=== PATIENT | female | born 1950 | race Caucasian/White ===

== ENCOUNTER → 2016-02-15 | Outpatient (CLI) | payer MEDICAID ==
[~2016-02-15] MED LIST: BUSP15TA60 PO; BUSP5POW MC; CLON0.5T PO; CLON0.5T3 PO; DESI10TA3 PO; FLUT1DIS26 INH; FLUT1DIS28 IH; GABA600T2 PO; HYDROXYZINE HCL 25 MG PO; LAMO100T PO; LAMO25TA75 PO; LEVO0.5P2 MC; LEVO50TA6 PO; LEVO88TA54 PO; LISI-592 PO; LISI1POW MC; OLAN2.5T3 PO; OLAN20TA16 PO; OMEP40CA36 PO; POLY17PO6 PO; POLY255P PO; PREMARIN 0.9 MG PO; RT-ALBUINH INH; TRAM50TA2 PO; ZOLP10TA PO; ZOLP10TA5 PO; [UNRECOGNIZED DRUG - CODE] IJ; [UNRECOGNIZED DRUG - CODE] PO
--- OUTSIDE RECORDS SUMMARY | 2016-02-15 09:54 | XMS REPORT | Continuity of Care Document ---
Author Author [facility] Organization [facility] Address Unknown Phone Unavailable Care Team Providers Care Value Analysis Coordinator Name Role Phone TovainnaDevora PCP [phone] Source Comments Some departments are not documenting in the electronic medical record. If you do not see the information that you expected, contact Release of Information in the Health Information Management department at [phone] for further assistance in locating additional records.[facility] Active Allergies and Adverse Reactions Allergen [...] Recent Encounters Date Type Specialty Providers Description 02/09/2016 Orders Only Allergy,Immunology and Gierer, Carol, DO Gammopathy Rheumatology 02/02/2016 Telephone Oncology Lien Sandoval, internal communications intern 01/31/2016 Orders Only Allergy,Immunology and Gierer, Carol, DO Gammopathy (Primary Dx) Rheumatology 01/26/2016 Telephone Allergy,Immunology and Gierer, Carol, DO Labs Only Rheumatology 01/26/2016 Orders Only Allergy,Immunology and Gierer, Carol, DO Angioedema, initial Rheumatology encounter 01/25/2016 Telephone Pediatric Allergy Carol Hensley, DO Results 01/18/2016 Orders Only Allergy,Immunology and Gierer, Carol, DO Angioedema, initial Rheumatology encounter 01/17/2016 Telephone Allergy,Immunology and Gierer, Carol, DO Other - results Rheumatology 12/29/2015 Office Visit Allergy,Immunology and Gierer, Carol, DO Angioedema, initial Rheumatology encounter (Primary Dx); Purpura (HCC); Chronic pruritus Social History Tobacco Use Types Packs/Day Years Used Date Never Smoker Smokeless Tobacco: Never Used Alcohol Use Drinks/Week oz/Week Comments No Last Filed Vital Signs Vital Sign Reading Time Taken Blood Pressure 138/78 12/29/2015 12:01 PM HEAT TREATING BLUER Pulse 71 12/29/2015 12:01 PM HEAT TREATING BLUER Temperature 36.7 C (98.1 F) 12/29/2015 12:01 PM HEAT TREATING BLUER Respiratory Rate 18 12/29/2015 12:01 PM HEAT TREATING BLUER Height 1.6 m (5' 3") 12/29/2015 12:01 PM HEAT TREATING BLUER Weight 79.833 kg (176 lb) 12/29/2015 12:01 PM HEAT TREATING BLUER Body Mass Index 31.18 12/29/2015 12:01 PM HEAT TREATING BLUER Oxygen Saturation - - Plan of Care Health Maintenance Due Date Last Done Comments Hepatitis C Screening 1950 Physical (Comprehensive) 11/25/1959 Exam Pertussis Vaccine 11/25/1963 Tetanus Vaccine 1969 Cervical Cancer Screening 1973 Breast Cancer Screening 1992 Colorectal Cancer 2002 Screening Shingles Vaccine 2012 Influenza Vaccine 10/14/2015 Results from Last 3 Months IMMUNOGLOBULINS-IGA,IGG,IGM (02/08/2016) Specimen Blood MISCELLANEOUS LAB TEST (01/04/2016) Specimen Blood ANTI-NUCLEAR ANTIBODY(ALTHEA) (12/31/2015) Specimen Blood THYROGLOBULIN AB (12/31/2015) Specimen Blood ELECTROPHORESIS-SERUM PROTEIN (12/31/2015) Specimen Blood C REACTIVE PROTEIN (CRP) (12/31/2015) Specimen Blood TSH WITH FREE T4 REFLEX (12/31/2015) Specimen Blood SED RATE (12/31/2015) Specimen Blood
--- NOTE | 2016-02-15 12:01 | Diagnostic Imaging Report ---
BONE SURVEY COMPLETE COMPARISON: None available. INDICATION: Biclonal gammopathy, facial swelling. TECHNIQUE: A total of 21 radiographic images of the skull, axial and appendicular skeleton were obtained. FINDINGS: Skull: No focal lytic lesion. Spine: No pathologic compression fracture within the cervical, thoracic or lumbar spine. There is dextroscoliosis of the lumbar spine with apex at T11 vertebral body. There is compensatory rotatory levoscoliosis of the lumbar spine. Chest: No expansile lytic lesion within the ribs or clavicles. Pelvis: No expansile lytic lesion. Numerous mineralized foci scattered throughout the abdomen or pelvis are indeterminate in nature. Scattered pelvic phleboliths. Lower extremities: No focal osseous lytic lesions. No periosteal reaction. Degenerative changes of both knees. Heterotopic ossification along the medial right femoral condyle is compatible with old MCL injury. Remote injury of the left lateral malleolus with chronic ossific body at its distal tip. Upper extremity: No focal osseous lesions. Degenerative changes at the thumb CMC articulation on the right. IMPRESSION: No focal lytic osseous lesion to suggest focal myelomatous lesion. Dictated by: Dictated on workstation # [id number]
== END ==
LOC: RAD 09:49
PROVIDERS: ATTEND Internal Medicine Hematology & Oncology
DX: D47.2 Monoclonal gammopathy (principal)
CPT/HCPCS: 77075

== ENCOUNTER 2016-03-30 09:03 | Outpatient (RCR) | payer MEDICAID ==
--- OUTSIDE RECORDS SUMMARY | 2016-02-09 12:30 | XMS REPORT | Continuity of Care Document ---
Author Author [facility] Organization [facility] Address Unknown Phone Unavailable Care Team Providers Care Spanish Literature Professor Name Role Phone HarshDevora PCP [phone] Source Comments Some departments are not documenting in the electronic medical record. If you do not see the information that you expected, contact Release of Information in the Health Information Management department at [phone] for further assistance in locating additional records.[facility] Active Allergies and Adverse Reactions Allergen Noted Date Severity Reactions Comments Lyrica 12/29/2015 Low ITCHING Zolpidem 11/30/2006 Allergy recorded in SMS: MOE~Reactions: MENTAL STATUS Current Medications Prescription Sig. Disp. Refills Start End Date Status Date albuterol (PROAIR HFA) 90 Inhale 2 Puffs by mouth Active mcg/actuation inhaler into the lungs every 6 hours as needed for Wheezing or Shortness of Breath. Shake well before use. budesonide/formoterol Inhale 2 Puffs by mouth Active (SYMBICORT HFA) 80-4.5 into the lungs twice mcg/actuation inhalation daily. clonazePAM (KLONOPIN) 0.5 Take 0.5 mg by mouth Active mg tablet twice daily. OLANZapine (ZYPREXA Dissolve 20 mg by mouth Active ZYDIS) 20 mg rapid at bedtime daily. dissolve tablet lamoTRIgine (LAMICTAL) Take 100 mg by mouth Active 100 mg tablet daily. cetirizine (ZYRTEC) 10 mg Take 10 mg by mouth every Active tablet morning. olopatadine(+) (PATANOL) Place 1 Drop into or Active 0.1 % ophthalmic solution around eye(s) twice daily as needed for Allergy symptoms. montelukast (SINGULAIR) Take 10 mg by mouth at Active 10 mg tablet bedtime daily. fluticasone (FLONASE) 50 Apply to each nostril as Active mcg/actuation nasal spray directed daily. Shake bottle gently before using. traMADol (ULTRAM) 50 mg Take 50 mg by mouth every Active tablet 6 hours as needed for Pain. gabapentin (NEURONTIN) Take 300 mg by mouth Active 300 mg capsule twice daily. ibuprofen (MOTRIN) 800 mg Take 800 mg by mouth Active tablet every 6 hours as needed for Pain. Take with food. gabapentin (NEURONTIN) Take 800 mg by mouth Active 800 mg tablet daily. polyethylene glycol 3350 Take 17 g by mouth daily. Active (MIRALAX) 17 g packet levothyroxine (SYNTHROID) Take 50 mcg by mouth Active 50 mcg tablet daily 30 minutes before breakfast. omeprazole DR(+) Take 40 mg by mouth daily Active (PRILOSEC) 40 mg capsule before breakfast. zolpidem (AMBIEN) 10 mg Take 10 mg by mouth at Active tablet bedtime as needed for Sleep. lisinopril-hydrochlorothi Take 1 Tab by mouth every Active azide (PRINZIDE, morning. ZESTORETIC) 20-12.5 mg tablet isosorbide mononitrate SR Take 30 mg by mouth every Active (IMDUR) 30 mg tablet morning. dicyclomine (BENTYL) 10 Take 10 mg by mouth four Active mg capsule times daily. hydrOXYzine pamoate Take 25 mg by mouth three Active (VISTARIL) 25 mg capsule times daily as needed for Itching. Active Problems Problem Noted Date Angioedema 01/01/2016 Overview: 1-2 times per month since approximately 2013. Each episode lasts 1-2 days. She has an EpiPen but has never had to use it. No identifiable trigger, denies tick bites, denies associated rash, but is taking an JUSTINE-Inhibitor. She may have some shortness of breath with episodes but states she has this all the time. She takes hydroxyzine three times a day for chronic pruritis without rash and still has breakthrough symptoms. - May be idiopathic angioedema but since she has been on lisinopril for years, would stop the lisinopril as this could cause her symptoms. I advised her to call her doctor about this before stopping this to receive a substitute for HTN management. Purpura (HCC) 01/01/2016 Overview: Small amount on her left arm, appears to be in an area of trauma. Chronic pruritus 01/01/2016 Overview: No associated rash or other systemic symptoms. - Continue hydroxyzine, which she feels controls her symptoms. Most Recent Encounters Date Type Specialty Providers Description 02/02/2016 Telephone Oncology Lien Sandoval, coal conveyor operator 01/31/2016 Orders Only Allergy,Immunology and Gierer Carol, DO Gammopathy (Primary Dx) Rheumatology 01/26/2016 Telephone Allergy,Immunology and Gierer Carol, DO Labs Only Rheumatology 01/26/2016 Orders Only Allergy,Immunology and Gierer Carol, DO Angioedema, initial Rheumatology encounter 01/25/2016 Telephone Pediatric Allergy Carol Hensley, DO Results 01/18/2016 Orders Only Allergy,Immunology and Gierer Carol, DO Angioedema, initial Rheumatology encounter 01/17/2016 Telephone Allergy,Immunology and Gierer Carol, DO Other - results Rheumatology 12/29/2015 Office Visit Allergy,Immunology and Gierer Carol, DO Angioedema, initial Rheumatology encounter (Primary Dx); Purpura (HCC); Chronic pruritus Social History Tobacco Use Types Packs/Day Years Used Date Never Smoker Smokeless Tobacco: Never Used Alcohol Use Drinks/Week oz/Week Comments No Last Filed Vital Signs Vital Sign Reading Time Taken Blood Pressure 138/78 12/29/2015 12:01 PM PROTOHISTORIAN Pulse 71 12/29/2015 12:01 PM PROTOHISTORIAN Temperature 36.7 C (98.1 F) 12/29/2015 12:01 PM PROTOHISTORIAN Respiratory Rate 18 12/29/2015 12:01 PM PROTOHISTORIAN Height 1.6 m (5' 3") 12/29/2015 12:01 PM PROTOHISTORIAN Weight 79.833 kg (176 lb) 12/29/2015 12:01 PM PROTOHISTORIAN Body Mass Index 31.18 12/29/2015 12:01 PM PROTOHISTORIAN Oxygen Saturation - - Plan of Care Health Maintenance Due Date Last Done Comments Hepatitis C Screening 1950 Physical (Comprehensive) 11/25/1959 Exam Pertussis Vaccine 11/25/1963 Tetanus Vaccine 1969 Cervical Cancer Screening 1973 Breast Cancer Screening 1992 Colorectal Cancer 2002 Screening Shingles Vaccine 2012 Influenza Vaccine 10/14/2015 Results from Last 3 Months MISCELLANEOUS LAB TEST (01/04/2016) Specimen Blood ANTI-NUCLEAR ANTIBODY(ALTHEA) (12/31/2015) Specimen Blood THYROGLOBULIN AB (12/31/2015) Specimen Blood ELECTROPHORESIS-SERUM PROTEIN (12/31/2015) Specimen Blood C REACTIVE PROTEIN (CRP) (12/31/2015) Specimen Blood TSH WITH FREE T4 REFLEX (12/31/2015) Specimen Blood SED RATE (12/31/2015) Specimen Blood
[2016-02-10 05:00] LABS: LIGHT CHAIN KAPPA SERUM QUANT 266.65 mg/L (3.30-19.40); LIGHT CHAIN LAMBDA SERUM QUANT 28.73 mg/L (5.71-26.30)
[2016-03-15 12:15] LABS: BASOPHILS # (AUTO) 0.1 10^3/uL (0.0-0.1); BASOPHILS % (AUTO) 1 % (0-10); EOSINOPHILS # (AUTO) 0.1 10^3/uL (0.0-0.3); EOSINOPHILS % (AUTO) 2 % (0-10); LYMPHOCYTES # (AUTO) 2.4 X 10^3 (1.0-4.0); LYMPHOCYTES % (AUTO) 33 % (12-44); MEAN CORPUSCULAR HEMOGLOBIN 31 PG (25-34); MEAN CORPUSCULAR HGB CONC 33 G/DL (32-36); MEAN CORPUSCULAR VOLUME 93 FL (80-99); MONOCYTES # (AUTO) 0.5 X 10^3 (0.0-1.0); MONOCYTES % (AUTO) 7 % (0-12); NEUTROPHILS # (AUTO) 4.3 X 10^3 (1.8-7.8); NEUTROPHILS % (AUTO) 58 % (42-75); PLATELET COUNT 238 10^3/uL (130-400); RED BLOOD COUNT 3.83 10^6/uL (4.35-5.85); RED CELL DISTRIBUTION WIDTH 12.6 % (10.0-14.5); WHITE BLOOD COUNT 7.4 10^3/uL (4.3-11.0)
[2016-03-15 12:44] LABS: EOSINOPHILS % (MANUAL) 2 %; LYMPHOCYTES % (MANUAL) 27 %; NEUTROPHILS % (MANUAL) 51 %
[2016-03-15 12:45] LABS: BILIRUBIN,TOTAL 0.3 MG/DL (0.1-1.0); CALCIUM 9.1 MG/DL (8.5-10.1); CREATININE SERUM 1.15 MG/DL (0.60-1.30); POTASSIUM 4.2 MMOL/L (3.6-5.0); REACTIVE LYMPHOCYTES 10 %; STOMATOCYTES MODERATE; TOTAL PROTEIN 7.4 G/DL (6.4-8.2)
== END 2016-05-09 | disposition home or self-care (01) ==
LOC: ONC 09:03
PROVIDERS: ATTEND Internal Medicine Hematology & Oncology
DX: D47.2 Monoclonal gammopathy (principal); I10 Essential (primary) hypertension; Z79.899 Other long term (current) drug therapy
CPT/HCPCS: 36415; 38221; 80053; 82232; 82784; 83615; 83883; 85007; 85027; 85045; 86335; 88184; 88185; 88305; 88311; 88313; 99213; 99214

== ENCOUNTER 2016-07-21 11:24 | Outpatient (RCR) | payer MEDICAID ==
[2016-07-13 10:36] LABS: BASOPHILS % (AUTO) 0 % (0-10); EOSINOPHILS % (AUTO) 1 % (0-10); LYMPHOCYTES # (AUTO) 2.3 X 10^3 (1.0-4.0); LYMPHOCYTES % (AUTO) 37 % (12-44); MEAN CORPUSCULAR HEMOGLOBIN 32 PG (25-34); MEAN CORPUSCULAR HGB CONC 34 G/DL (32-36); MEAN CORPUSCULAR VOLUME 93 FL (80-99); MEAN PLATELET VOLUME 9.6 FL (7.4-10.4); MONOCYTES # (AUTO) 0.5 X 10^3 (0.0-1.0); MONOCYTES % (AUTO) 8 % (0-12); NEUTROPHILS # (AUTO) 3.3 X 10^3 (1.8-7.8); NEUTROPHILS % (AUTO) 54 % (42-75); PLATELET COUNT 260 10^3/uL (130-400); RED BLOOD COUNT 3.67 10^6/uL (4.35-5.85); RED CELL DISTRIBUTION WIDTH 12.8 % (10.0-14.5); WHITE BLOOD COUNT 6.1 10^3/uL (4.3-11.0)
[2016-07-13 10:50] LABS: PEP REPORT SEE PATH REPORT
[2016-07-13 11:10] LABS: ALBUMIN 3.7 G/DL (3.2-4.5); BILIRUBIN,TOTAL 0.2 MG/DL (0.1-1.0); CALCIUM 9.2 MG/DL (8.5-10.1); CREATININE SERUM 1.15 MG/DL (0.60-1.30); TOTAL PROTEIN 7.1 G/DL (6.4-8.2)
[2016-07-14 03:49] LABS: IMMUNOGLOBULIN IGA 171 mg/dL (71-263); IMMUNOGLOBULIN IGG 1415 mg/dL (672-1680); LIGHT CHAIN KAPPA SERUM QUANT 229.51 mg/L (3.30-19.40); LIGHT CHAIN LAMBDA SERUM QUANT 19.47 mg/L (5.71-26.30)
[2016-07-14 07:15] LABS: IMMUNOGLOBULIN IGM 50 mg/dL (47-209)
[2016-07-17 10:14] LABS: CLIN PATHOLOGY REPORT FOOTNOTE
[2016-07-17 10:15] LABS: SERUM PROTEIN ELEC DETAIL L-17-0007131
== END 2016-10-11 | disposition home or self-care (01) ==
LOC: ONC 11:24
PROVIDERS: ATTEND Internal Medicine Hematology & Oncology
DX: D47.2 Monoclonal gammopathy (principal); M54.6 Pain in thoracic spine; K13.0 Diseases of lips; Z79.899 Other long term (current) drug therapy
CPT/HCPCS: 36415; 80053; 82232; 82784; 83883; 84155; 84156; 84165; 85025; 86335; 99213

== ENCOUNTER → 2016-07-27 | Outpatient (CLI) | payer MEDICAID ==
--- NOTE | 2016-07-27 17:43 | Diagnostic Imaging Report ---
EXAMINATION: DEXA scan. INDICATION: Asymptomatic menopausal state. Z78.0. TECHNIQUE: Bone mineral density estimated based on dual energy radiography over the lumbar spine and femoral necks, was performed. FINDINGS: The lumbar spine T-score is -0.4. T score over the left femoral neck is 0.3 and on the right is 0. IMPRESSION: Normal bone mineral density. Dictated by: Dictated on workstation # [id number]
== END ==
LOC: RAD 10:09
PROVIDERS: ATTEND Internal Medicine Hematology & Oncology
DX: D47.2 Monoclonal gammopathy (principal); M54.9 Dorsalgia, unspecified; Z78.0 Asymptomatic menopausal state
CPT/HCPCS: 77080

== ENCOUNTER 2017-01-23 13:46 | Outpatient (RCR) | payer MEDICAID ==
[2017-01-18 09:10] LABS: BASOPHILS # (AUTO) 0.1 10^3/uL (0.0-0.1); BASOPHILS % (AUTO) 1 % (0-10); EOSINOPHILS # (AUTO) 0.1 10^3/uL (0.0-0.3); EOSINOPHILS % (AUTO) 3 % (0-10); HEMATOCRIT 35 % (35-52); HEMOGLOBIN 11.9 G/DL (11.5-16.0); LYMPHOCYTES # (AUTO) 2.1 X 10^3 (1.0-4.0); LYMPHOCYTES % (AUTO) 47 % (12-44); MEAN CORPUSCULAR HEMOGLOBIN 32 PG (25-34); MEAN CORPUSCULAR HGB CONC 34 G/DL (32-36); MEAN CORPUSCULAR VOLUME 94 FL (80-99); MEAN PLATELET VOLUME 10.6 FL (7.4-10.4); MONOCYTES # (AUTO) 0.3 X 10^3 (0.0-1.0); MONOCYTES % (AUTO) 6 % (0-12); NEUTROPHILS # (AUTO) 1.9 X 10^3 (1.8-7.8); NEUTROPHILS % (AUTO) 43 % (42-75); PLATELET COUNT 232 10^3/uL (130-400); RED BLOOD COUNT 3.77 10^6/uL (4.35-5.85); RED CELL DISTRIBUTION WIDTH 12.1 % (10.0-14.5); WHITE BLOOD COUNT 4.5 10^3/uL (4.3-11.0)
[2017-01-18 09:30] LABS: ALBUMIN 3.9 GM/DL (3.2-4.5); BILIRUBIN,TOTAL 0.7 MG/DL (0.1-1.0); CALCIUM 9.6 MG/DL (8.5-10.1); CREATININE SERUM 1.04 MG/DL (0.60-1.30); POTASSIUM 3.7 MMOL/L (3.6-5.0); TOTAL PROTEIN 7.6 GM/DL (6.4-8.2)
[2017-01-18 09:43] LABS: PROTEIN URINE MG/DL < 6 MG/DL (6-12)
[2017-01-18 09:56] LABS: TOTAL VOLUME,URINE 875 ML
== END 2017-04-18 | disposition home or self-care (01) ==
LOC: ONC 13:46
PROVIDERS: ATTEND Internal Medicine Hematology & Oncology
DX: D47.2 Monoclonal gammopathy (principal); I10 Essential (primary) hypertension; M54.9 Dorsalgia, unspecified; Z78.0 Asymptomatic menopausal state; Z79.899 Other long term (current) drug therapy
CPT/HCPCS: 36415; 80053; 82784; 83883; 84155; 84156; 84165; 85025; 86335; 99213

== ENCOUNTER 2017-07-24 13:42 | Outpatient (RCR) | payer MEDICAID ==
[2017-07-19 14:40] LABS: BASOPHILS # (AUTO) 0.1 10^3/uL (0.0-0.1); BASOPHILS % (AUTO) 1 % (0-10); EOSINOPHILS # (AUTO) 0.1 10^3/uL (0.0-0.3); EOSINOPHILS % (AUTO) 2 % (0-10); HEMATOCRIT 33 % (35-52); HEMOGLOBIN 11.4 G/DL (11.5-16.0); LYMPHOCYTES # (AUTO) 2.1 X 10^3 (1.0-4.0); LYMPHOCYTES % (AUTO) 34 % (12-44); MEAN CORPUSCULAR HEMOGLOBIN 32 PG (25-34); MEAN CORPUSCULAR HGB CONC 34 G/DL (32-36); MEAN CORPUSCULAR VOLUME 92 FL (80-99); MEAN PLATELET VOLUME 9.2 FL (7.4-10.4); MONOCYTES # (AUTO) 0.5 X 10^3 (0.0-1.0); MONOCYTES % (AUTO) 7 % (0-12); NEUTROPHILS # (AUTO) 3.6 X 10^3 (1.8-7.8); NEUTROPHILS % (AUTO) 57 % (42-75); PLATELET COUNT 252 10^3/uL (130-400); RED BLOOD COUNT 3.61 10^6/uL (4.35-5.85); RED CELL DISTRIBUTION WIDTH 12.5 % (10.0-14.5); WHITE BLOOD COUNT 6.3 10^3/uL (4.3-11.0)
[2017-07-19 14:56] LABS: ALBUMIN 3.9 GM/DL (3.2-4.5); BILIRUBIN,TOTAL 0.2 MG/DL (0.1-1.0); CALCIUM 9.1 MG/DL (8.5-10.1); POTASSIUM 3.8 MMOL/L (3.6-5.0); TOTAL PROTEIN 7.6 GM/DL (6.4-8.2)
[~2017-07-24 13:42] MED LIST changes: +CLON0.5T13 PO; -CLON0.5T3 PO
[2017-08-28] MEDS ORDERED: ESTR0.9T PO (08:44)
[2017-08-28] MEDS ORDERED: FLUT16SP22 NS (08:44)
[2017-08-28] MEDS ORDERED: CETI10TA17 PO (08:44)
[2017-08-28] MEDS ORDERED: GABA-488 PO (08:44)
[2017-08-28] MEDS ORDERED: RT-ALBUINH INH (08:44)
[2017-08-28] MEDS ORDERED: LEVO50TA6 PO (08:44)
[2017-08-28] MEDS ORDERED: PANT40TA3 PO (08:44)
[2017-08-28] MEDS ORDERED: BUDE10.22 INH (08:44)
[2017-08-28] MEDS ORDERED: GABA800T2 PO (08:44)
[2017-08-28] MEDS ORDERED: HYDR-700 PO (08:44)
[2017-08-28] MEDS ORDERED: OXYB5TAB9 PO ×2 (08:44→10:05)
[2017-08-28] MEDS ORDERED: IBUP-1780 PO (08:44)
[2017-08-28] MEDS ORDERED: MONT10TA24 PO (08:44)
[2017-08-28] MEDS ORDERED: ISM60TCR PO (08:44)
[2017-08-28] MEDS ORDERED: BACL10TA PO (08:44)
[2017-08-28] MEDS ORDERED: HYDR25TA4 PO (08:44)
[2017-08-28] MEDS ORDERED: OLOP5DRO13 OU (10:05)
[2017-08-28] MEDS ORDERED: MAGN400O7 PO (10:05)
[2017-08-28] MEDS ORDERED: OMEP40CA36 PO (10:05)
[2017-08-28] MEDS ORDERED: TRAM50TA2 PO (10:05)
[2017-08-28] MEDS ORDERED: ZOLP10TA5 PO (10:05)
[2017-08-29] MEDS ORDERED: IBUP-1780 PO (10:51)
[2017-08-29] MEDS ORDERED: NITR100C PO (10:52)
== END 2017-10-17 | disposition home or self-care (01) ==
LOC: ONC 13:42
PROVIDERS: ATTEND Internal Medicine Hematology & Oncology
DX: D47.2 Monoclonal gammopathy (principal); I10 Essential (primary) hypertension; M54.9 Dorsalgia, unspecified; Z78.0 Asymptomatic menopausal state; Z79.899 Other long term (current) drug therapy
CPT/HCPCS: 36415; 80053; 82784; 83883; 84155; 84165; 85025; 99213

== ENCOUNTER 2017-08-27 13:19 | Observation (INO) | payer MEDICAID ==
[~2017-08-27] VITALS: Ht 160 cm; Wt 71.2 kg
--- NOTE | 2017-08-27 13:29 | ED General ---
General Stated Complaint: AMS Source of Information: Patient Exam Limitations: No Limitations History of Present Illness Date Seen by Provider: Aug 27, 2017 Time Seen by Provider: 13:26 Initial Comments to ER per private vehicle from home in [place] with reports of altered mental status. This never happened before.she began hallucinating and seeing things that were not there at about 4 AM this morning. Family is concerned this may be a reaction to Ambien or maybe she took too much Ambien. Her only complaint to me in the emergency room is that her lips are chapped. However, she believes the year to be 2000 and wear at [facility] she thinks. Timing/Duration: 12 Hours Severity: Moderate Allergies and Home Medications Allergies Coded Allergies: pregabalin (Verified Allergy, Unknown, HIVES, 09/17/14) Home Medications Acetaminophen 500 Mg Tablet, 500 MG PO Q6H PRN for PAIN, (Reported) Albuterol Sulfate 8.5 Gm Hfa.aer.ad, 2 PUFF INH Q6H PRN for SHORTNESS OF BREATH, (Reported) Buspirone HCl 15 Mg Tablet, 7.5 MG PO TID, (Reported) TAKES 1/2 (15MG) TABLET Clonazepam 0.5 Mg Tablet, 0.25 MG PO HS PRN for ANXIETY, (Reported) TAKES 1/2 (0.5MG) TABLET Fluticasone/Salmeterol 1 Each Blst.w.dev, 1 PUFF INH BID, (Reported) Gabapentin 600 Mg Tablet, 600 MG PO HS, (Reported) Lamotrigine 100 Mg Tablet, 100 MG PO HS, (Reported) Levothyroxine Sodium 50 Mcg Tablet, 50 MCG PO DAILY Prescribed by: LAURA TARIQ on 09/18/14 1028 Olanzapine 20 Mg Tablet, 20 MG PO DAILY, (Reported) Omeprazole 40 Mg Capsule.dr, 40 MG PO DAILY, (Reported) Polyethylene Glycol 3350 255 Gm Powder, 17 GM PO HS, (Reported) Tramadol HCl 50 Mg Tablet, 50 MG PO TID, (Reported) Zolpidem Tartrate 10 Mg Tablet, 5 MG PO HS PRN for SLEEP The FDA does not recommend women using ambien greater than 5mg. Cut your tablet in half. You will now only take 5mg daily Prescribed by: LAURA TARIQ on 09/18/14 1028 [Premarin 0.9MG] , 0.9 MG PO DAILY, (Reported) Patient Home Medication List Home Medication List Reviewed: Yes Review of Systems Constitutional: see HPI EENTM: see HPI Respiratory: no symptoms reported Cardiovascular: no symptoms reported Genitourinary: no symptoms reported Musculoskeletal: no symptoms reported Psychiatric/Neurological: See HPI Hematologic/Lymphatic: No Symptoms Reported Past Mkdhkok-Tqiosu-Dgtrfw Hx Patient Social History Recent Foreign Travel: No Contact w/Someone Who Travel: No Immunizations Up To Date Tetanus Booster (TDap): Less than 5yrs Date of Pneumonia Vaccine: Feb 12, 2011 Past Medical History Gallbladder, Hysterectomy, Thyroidectomy Asthma Hypertension Reproductive Disorders: No Gastroesophageal Reflux, Chronic Constipation, Diverticulosis, Gall Bladder Disease Degenerate Disk Disease, Arthritis, Scoliosis Hypothyroidsim Anxiety, Bipolar Family Medical History Cardiovascular disease 19 FATHER 19 MOTHER Completed stroke 19 FATHER Diabetes mellitus G8 BROTHER FH: lung cancer 19 FATHER 19 MOTHER Myocardial infarction 19 MOTHER Physical Exam Vital Signs Capillary Refill : Height, Weight, BMI Height: 5'3.00" Weight: 188lbs. oz. 85.611577ia; BMI Method:Stated General Appearance: No Apparent Distress, WD/WN Eyes: Bilateral Eye Normal Inspection, Bilateral Eye PERRL, Bilateral Eye EOMI HEENT: PERRL/EOMI, TMs Normal Neck: Full Range of Motion, Normal Inspection Respiratory: No Accessory Muscle Use, No Respiratory Distress Cardiovascular: Regular Rate, Rhythm, Normal Peripheral Pulses Gastrointestinal: Normal Bowel Sounds, Non Tender, Soft Extremity: Normal Capillary Refill, Normal Inspection, Normal Range of Motion Neurologic/Psychiatric: Alert, No Motor/Sensory Deficits, Other (She believes we are at [facility] in the year is 2000. Family states that normally she is alert and oriented.) Skin: Normal Color, Warm/Dry Progress/Results/Core Measures Suspected Sepsis SIRS Temperature: Pulse: Respiratory Rate: Laboratory Tests 08/27/17 13:27: White Blood Count 7.2 Blood Pressure / Mean: Laboratory Tests 08/27/17 13:27: Creatinine 0.97, Platelet Count 239, Total Bilirubin 0.5 Results/Orders Lab Results Laboratory Tests Test 08/27/17 13:27 08/27/17 14:55 Range/Units White Blood Count 7.2 4.3-11.0 10^3/uL Red Blood Count 3.98 L 4.35-5.85 10^6/uL Hemoglobin 12.9 11.5-16.0 G/DL Hematocrit 36 35-52 % Mean Corpuscular Volume 91 80-99 FL Mean Corpuscular Hemoglobin 32 25-34 PG Mean Corpuscular Hemoglobin Concent 36 32-36 G/DL Red Cell Distribution Width 12.8 10.0-14.5 % Platelet Count 239 130-400 10^3/uL Mean Platelet Volume 10.5 H 7.4-10.4 FL Neutrophils (%) (Auto) 72 42-75 % Lymphocytes (%) (Auto) 22 12-44 % Monocytes (%) (Auto) 6 0-12 % Eosinophils (%) (Auto) 0 0-10 % Basophils (%) (Auto) 0 0-10 % Neutrophils # (Auto) 5.2 1.8-7.8 X 10^3 Lymphocytes # (Auto) 1.6 1.0-4.0 X 10^3 Monocytes # (Auto) 0.4 0.0-1.0 X 10^3 Eosinophils # (Auto) 0.0 0.0-0.3 10^3/uL Basophils # (Auto) 0.0 0.0-0.1 10^3/uL Sodium Level 133 L 135-145 MMOL/L Potassium Level 3.2 L 3.6-5.0 MMOL/L Chloride Level 96 L 98-107 MMOL/L Carbon Dioxide Level 24 21-32 MMOL/L Anion Gap 13 5-14 MMOL/L Blood Urea Nitrogen 21 H 7-18 MG/DL Creatinine 0.97 0.60-1.30 MG/DL Estimat Glomerular Filtration Rate 58 BUN/Creatinine Ratio 22 Glucose Level 103 70-105 MG/DL Calcium Level 10.0 8.5-10.1 MG/DL Total Bilirubin 0.5 0.1-1.0 MG/DL Aspartate Amino Transf (AST/SGOT) 27 5-34 U/L Alanine Aminotransferase (ALT/SGPT) 19 0-55 U/L Alkaline Phosphatase 68 40-136 U/L Total Protein 8.6 H 6.4-8.2 GM/DL Albumin 4.2 3.2-4.5 GM/DL Thyroid Stimulating Hormone (TSH) 1.08 0.35-4.94 UIU/ML Free Thyroxine 1.47 0.70-1.48 NG/DL Salicylates Level < 5.0 L 5.0-20.0 MG/DL Acetaminophen Level < 10 L 10-30 UG/ML Serum Alcohol < 10 <10 MG/DL Urine Color YELLOW Urine Clarity SLIGHTLY CLOUDY Urine pH 6 5-9 Urine Specific Harmony 1.015 L 1.016-1.022 Urine Protein NEGATIVE NEGATIVE Urine Glucose (UA) NEGATIVE NEGATIVE Urine Ketones 4+ H NEGATIVE Urine Nitrite POSITIVE H NEGATIVE Urine Bilirubin NEGATIVE NEGATIVE Urine Urobilinogen NORMAL NORMAL MG/DL Urine Leukocyte Esterase 1+ H NEGATIVE Urine RBC (Auto) 3+ H NEGATIVE Urine RBC 2-5 H /HPF Urine WBC 2-5 /HPF Urine Squamous Epithelial Cells NONE /HPF Urine Crystals NONE /LPF Urine Bacteria LARGE H /HPF Urine Casts NONE /LPF Urine Mucus NEGATIVE /LPF Urine Culture Indicated YES Urine Opiates Screen NEGATIVE NEGATIVE Urine Oxycodone Screen NEGATIVE NEGATIVE Urine Methadone Screen NEGATIVE NEGATIVE Urine Propoxyphene Screen NEGATIVE NEGATIVE Urine Barbiturates Screen NEGATIVE NEGATIVE Ur Tricyclic Antidepressants Screen NEGATIVE NEGATIVE Urine Phencyclidine Screen NEGATIVE NEGATIVE Urine Amphetamines Screen NEGATIVE NEGATIVE Urine Methamphetamines Screen NEGATIVE NEGATIVE Urine Benzodiazepines Screen NEGATIVE NEGATIVE Urine Cocaine Screen NEGATIVE NEGATIVE Urine Cannabinoids Screen NEGATIVE NEGATIVE My Orders Orders - DUYEN BECKFORD APRN Cbc With Automated Diff (08/27/17 13:22) Comprehensive Metabolic Panel (08/27/17 13:22) Alcohol (08/27/17 13:22) Ekg Tracing (08/27/17 13:22) Salicylate (08/27/17 13:22) Acetaminophen (08/27/17 13:22) Ua Culture If Indicated (08/27/17 13:22) Drug Screen Stat (Urine) (08/27/17 13:22) Ct Head Wo (08/27/17 13:22) Thyroid Stimulating Hormone (08/27/17 13:56) Free T4 (Free Thyroxine) (08/27/17 13:56) Ns Iv 1000 Ml (Sodium Chloride 0.9%) (08/27/17 14:45) Urine Culture (08/27/17 14:55) Vital Signs/I&O Capillary Refill : Diagnostic Imaging Diagonstic Imaging: Xray Comments NAME: JUDAH HO Macy MED REC#: [id number] PT STATUS: REG ER : 1950 PHYSICIAN: DUYEN BECKFORD APRN ADMIT DATE: 08/27/17/ER Draft Date of Exam:08/27/17 CT HEAD WO PROCEDURE: CT head without contrast. TECHNIQUE: Multiple contiguous axial images were obtained through the brain without the use of intravenous contrast. DATE: August 27, 2017. COMPARISON: CT head of September 17, 2014. INDICATION: 66-year-old female, altered mental status. FINDINGS: There is a small amount of fluid layering within the left sphenoid sinus. There is near-complete opacification of the left ethmoidal air cells. There is mild mucosal thickening of the right frontal sinus. The mastoid air cells and middle ears are well aerated bilaterally. The ventricles and cerebral spinal fluid spaces are of normal size and configuration for the patient's age. There is no mass effect or midline shift. There is no acute intracranial hemorrhage. There is no abnormal extra-axial fluid collection. IMPRESSION: 1. No identified acute intracranial abnormality. 2. Air/fluid level in the left sphenoid sinus which is nonspecific with near complete opacification of the left ethmoidal air cells. Correlation for acute sinusitis may be helpful. Dictated on workstation # [id number] Dict: 08/27/17 1414 Trans: 08/27/17 1418 [id number] Interpreted by: TYRONE ESPANA MD Electronically signed by: Departure Communication (Admissions) Time/Spoke to Admitting Phy: 15:[address] Navas. We'll admit the patient for observation Impression Primary Impression: Altered mental status Disposition: ADMITTED INPATIENT Condition: Stable Admissions Decision to Admit Reason: Admit from ER (General) Decision to Admit/Date: Aug 27, 2017 Time/Decision to Admit Time: 15:30 Departure-Patient Inst. Referrals: AIMEE LING (PCP) Primary Care Physician [facility] (Family) Primary Care Physician DUYEN BECKFORD APRN Aug 27, 2017 13:29
[2017-08-27 13:39] LABS: BASOPHILS % (AUTO) 0 % (0-10); EOSINOPHILS % (AUTO) 0 % (0-10); HEMATOCRIT 36 % (35-52); HEMOGLOBIN 12.9 G/DL (11.5-16.0); LYMPHOCYTES # (AUTO) 1.6 X 10^3 (1.0-4.0); LYMPHOCYTES % (AUTO) 22 % (12-44); MEAN CORPUSCULAR HEMOGLOBIN 32 PG (25-34); MEAN CORPUSCULAR HGB CONC 36 G/DL (32-36); MEAN CORPUSCULAR VOLUME 91 FL (80-99); MEAN PLATELET VOLUME 10.5 FL (7.4-10.4); MONOCYTES # (AUTO) 0.4 X 10^3 (0.0-1.0); MONOCYTES % (AUTO) 6 % (0-12); NEUTROPHILS # (AUTO) 5.2 X 10^3 (1.8-7.8); NEUTROPHILS % (AUTO) 72 % (42-75); PLATELET COUNT 239 10^3/uL (130-400); RED BLOOD COUNT 3.98 10^6/uL (4.35-5.85); RED CELL DISTRIBUTION WIDTH 12.8 % (10.0-14.5); WHITE BLOOD COUNT 7.2 10^3/uL (4.3-11.0)
[2017-08-27 14:02] LABS: ALANINE AMINOTRANSFERASE 19 U/L (0-55); ALBUMIN 4.2 GM/DL (3.2-4.5); ALKALINE PHOSPHATASE 68 U/L (40-136); BILIRUBIN,TOTAL 0.5 MG/DL (0.1-1.0); BUN/CREATININE RATIO 22; CARBON DIOXIDE 24 MMOL/L (21-32); CHLORIDE 96 MMOL/L (98-107); CREATININE SERUM 0.97 MG/DL (0.60-1.30); GFR ESTIMATED 58; GLUCOSE 103 MG/DL (70-105); POTASSIUM 3.2 MMOL/L (3.6-5.0); SALICYLATE < 5.0 MG/DL (5.0-20.0); SODIUM 133 MMOL/L (135-145); TOTAL PROTEIN 8.6 GM/DL (6.4-8.2)
[2017-08-27 14:03] LABS: ACETAMINOPHEN < 10 UG/ML (10-30)
--- NOTE | 2017-08-27 14:18 | Diagnostic Imaging Report ---
PROCEDURE: CT head without contrast. TECHNIQUE: Multiple contiguous axial images were obtained through the brain without the use of intravenous contrast. DATE: August 27, 2017. COMPARISON: CT head of September 17, 2014. INDICATION: 66-year-old female, altered mental status. FINDINGS: There is a small amount of fluid layering within the left sphenoid sinus. There is near-complete opacification of the left ethmoidal air cells. There is mild mucosal thickening of the right frontal sinus. The mastoid air cells and middle ears are well aerated bilaterally. The ventricles and cerebral spinal fluid spaces are of normal size and configuration for the patient's age. There is no mass effect or midline shift. There is no acute intracranial hemorrhage. There is no abnormal extra-axial fluid collection. IMPRESSION: 1. No identified acute intracranial abnormality. 2. Air/fluid level in the left sphenoid sinus which is nonspecific with near complete opacification of the left ethmoidal air cells. Correlation for acute sinusitis may be helpful. Dictated by: Dictated on workstation # [id number]
[2017-08-27 14:37] LABS: FREE T4 (FREE THYROXINE) 1.47 NG/DL (0.70-1.48)
[2017-08-27] MEDS ORDERED: NS IV 1000 ML 1,000 ML IV SCH (14:45)
[2017-08-27 15:06] LABS: BILIRUBIN,URINE NEGATIVE (NEGATIVE); CLARITY,URINE SLIGHTLY CLOUDY; COLOR,URINE YELLOW; GLUCOSE, URINE (UA) NEGATIVE (NEGATIVE); KETONES,URINE 4+ (NEGATIVE); LEUKOCYTE ESTERASE ,URINE 1+ (NEGATIVE); NITRITE,URINE POSITIVE (NEGATIVE); PH,URINE 6 (5-9); PROTEIN,URINE NEGATIVE (NEGATIVE); UROBILINOGEN,URINE NORMAL (NORMAL)
[2017-08-27 15:14] LABS: BACTERIA,URINE LARGE /HPF
[2017-08-27 15:21] LABS: AMPHETAMINE SCREEN, URINE NEGATIVE (NEGATIVE); BARBITURATE SCREEN URINE NEGATIVE (NEGATIVE); BENZODIAZEPINES SCREEN URINE NEGATIVE (NEGATIVE); CANNABINOID SCREEN, URINE NEGATIVE (NEGATIVE); COCAINE SCREEN URINE NEGATIVE (NEGATIVE); METHADONE STAT NEGATIVE (NEGATIVE); METHAMPHETAMINE SCREEN URINE S NEGATIVE (NEGATIVE); OPIATE SCREEN URINE NEGATIVE (NEGATIVE); OXYCODONE STAT NEGATIVE (NEGATIVE); PROPOXYPHENE STAT NEGATIVE (NEGATIVE); TRICYCLIC ANTIDEPRESSANTS SCRE NEGATIVE (NEGATIVE)
[2017-08-27 16:17] VITALS: BP 177/75
--- OUTSIDE RECORDS SUMMARY | 2017-08-27 16:19 | XMS REPORT | Clinical Summary ---
Author Author [facility] Organization [facility] Address Unknown Phone Unavailable Care Team Providers Care Java Scala Developer Name Role Phone Devora House MD PCP Source Comments Some departments are not documenting in the electronic medical record. If you do not see the information that you expected, contact Release of Information in the Health Information Management department at [phone] for further assistance in locating additional records.[facility] Allergies Active Allergy Reactions Severity Noted Date Comments Pregabalin ITCHING Low 12/29/2015 Zolpidem 11/30/2006 Allergy recorded in SMS: MOE~Reactions: [...] hydroxyzine, which she feels controls her symptoms. Family History Medical History Relation Name Comments Cancer-Lung Father Cancer-Lung Mother Relation Name Status Comments Father (Age 82) Mother (Age 76) Social History Tobacco Use Types Packs/Day Years Used Date Never Smoker Smokeless Tobacco: Never Used Alcohol Use Drinks/Week oz/Week Comments No Sex Assigned at Date Recorded Not on file Last Filed Vital Signs Vital Sign Reading Time Taken Blood Pressure 138/78 12/29/2015 12:01 PM SENIOR TECHNICAL PROJECT MANAGER Pulse 71 12/29/2015 12:01 PM SENIOR TECHNICAL PROJECT MANAGER Temperature 36.7 C (98.1 F) 12/29/2015 12:01 PM SENIOR TECHNICAL PROJECT MANAGER Respiratory Rate 18 12/29/2015 12:01 PM SENIOR TECHNICAL PROJECT MANAGER Oxygen Saturation - - Inhaled Oxygen - - Concentration Weight 79.8 kg (176 lb) 12/29/2015 12:01 PM SENIOR TECHNICAL PROJECT MANAGER Height 160 cm (5' 3") 12/29/2015 12:01 PM SENIOR TECHNICAL PROJECT MANAGER Body Mass Index 31.18 12/29/2015 12:01 PM SENIOR TECHNICAL PROJECT MANAGER Plan of Treatment Health Maintenance Due Date Last Done Comments HEPATITIS C SCREENING 1950 PHYSICAL (COMPREHENSIVE) 11/25/1959 EXAM PERTUSSIS VACCINE 11/25/1963 HIV SCREENING 11/25/1967 TETANUS VACCINE 1969 CERVICAL CANCER SCREENING 1982 BREAST CANCER SCREENING 1992 COLORECTAL CANCER 2002 SCREENING SHINGLES RECOMBINANT 2002 VACCINE (1 of 2) INFLUENZA VACCINE 11/12/2017 Results Not on filefrom Last 3 Months
--- OUTSIDE RECORDS SUMMARY | 2017-08-27 16:19 | XMS REPORT ---
Author Author AIMEE LING [facility] Address [address] [place] [address] Care Team Providers Care Clam Grower Name Role Phone AIMEE LING Unavailable PROBLEMS Type Condition ICD9-CM Code AKK30-ZS Code Onset Dates Condition Status SNOMED Code Problem Allergic rhinitis, unspecified allergic rhinitis type J30.9 Active 68220627 Problem Bipolar depression F31.30 Active 34435854 Problem Lumbago with sciatica, left side M54.42 Active 231917740 Problem Other chronic pain G89.29 Active 54368631 Problem Overactive bladder N32.81 Active 058687258 Problem Insomnia, unspecified type G47.00 Active 144382719 Problem Abdominal spasms R10.9 Active 66733960 Problem Other specified hypothyroidism E03.8 Active 32062290 Problem Muscle spasms of both lower extremities M62.838 Active 274024182 Problem 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 32513377 Problem Hyponatremia 276.1 Active 27040223 Problem Insomnia 780.52 Active 471917654 Problem Anxiety F41.9 Active 90736023 Problem Gastroesophageal reflux disease, esophagitis presence not specified K21.9 Active 486039354 Problem RLS (restless legs syndrome) G25.81 Active 89410982 Problem Moderate persistent asthma without complication J45.40 Active 059333222 Problem Benign essential hypertension I10 Active 9557463 Problem Constipation, unspecified constipation type K59.00 Active 04746078 ALLERGIES No Information ENCOUNTERS Encounter Location Date Diagnosis [facility] [address] [id number] [place] [id number] Oct, [facility] [address] [id number] [place] [id number] Aug, [facility] [place] [address] [id number] [place] [id number] Aug, [facility] [place] [id number], [place] [id number] Aug, Acute right ankle pain M25.571 and Muscle spasms of both lower extremities M62.838 [facility] [place] [id number] [place] [address] [id number] Aug, Back muscle spasm M62.830 [facility] [place] [id number] [place] [address] [id number] Aug, Back spasm M62.830 and Anxiety F41.9 [facility] [place] [id number] [place] [address] [id number] Aug, Back spasm M62.830 and Anxiety F41.9 [facility] [id number] [place] [address] [phone] Jul, [facility] [place] [id number] [place] [address] [id number] Jul, [facility] [place] [id number] [place] [address] [id number] Jul, Back muscle spasm M62.830 and RLS (restless legs syndrome) G25.81 [facility] [place] [id number] [place] [address] [phone] Jul, Back spasm M62.830 [facility] [place] [id number] [place] [address] [id number] Jul, Back spasm M62.830 and Anxiety F41.9 [facility] [place] [id number] [place] [address] [id number] June, Insomnia, unspecified type G47.00 ; Overactive bladder N32.81 and Back spasm M62.830 [facility] [place] [id number] [place] [address] [id number] June, Anxiety F41.9 and Lumbago with sciatica, left side M54.42 [facility] [place] [id number] [place] [address] [id number] May, Anxiety F41.9 and Lumbago with sciatica, left side M54.42 [facility] [address] [id number], [place] [id number] Apr, Dental examination Z01.[address] [id number], [place] [id number] Apr, [facility] [id number] [place] [address] [phone] Apr, RLS (restless legs syndrome) G25.81 ; Lumbago with sciatica, left side M54.42 and Anxiety F41.9 [facility] [id number] [place] [address] [phone] Mar, [facility] [id number] [place] [address] [id number] Mar, Insomnia, unspecified type G47.00 [facility] [id number] [place] [address] [id number] Mar, Insomnia, unspecified type G47.00 and RLS (restless legs syndrome) G25.81 [facility] [address] [facility] [address] [id number], [place] [id number] Mar, [facility] [address] [facility] [address] [id number], [place] [id number] Mar, Dental examination Z01.20 [facility] [id number] [place] [address] Mar, [facility] [id number], [place] [id number] Mar, Lumbago with sciatica, left side M54.42 and Anxiety F41.9 [facility] [address] [id number] [address] Mar, [facility] [id number] [place] [address] [id number] Mar, Insomnia, unspecified type G47.00 [facility] [id number], [place] [id number] Mar, [facility] [id number], [place] [id number] Feb, Insomnia, unspecified type G47.00 [facility] [address] [id number], [place] [id number] Feb, Lumbago with sciatica, left side M54.42 and Anxiety F41.9 [facility] [place] [id number] [place] [address] [phone] Feb, [facility] [id number] [place] [address] [id number] Feb, RLS (restless legs syndrome) G25.81 ; Lumbago with sciatica, left side M54.42 ; Overactive bladder N32.81 and Anxiety F41.9 [facility] [id number] [place] [address] [id number] Jan, Overactive bladder N32.81 and Moderate persistent asthma without complication J45.40 [facility] [id number] [place] [address] [id number] Jan, Lumbago with sciatica, left side M54.42 and Insomnia, unspecified type G47.00 [facility] [id number] [place] [address] [id number] Jan, RLS (restless legs syndrome) G25.81 [facility] [id number] [place] [address] [id number] Dec, Overactive bladder N32.81 and Other chronic pain G89.29 [facility] [id number] [place] [address] [id number] Dec, Lumbago with sciatica, left side M54.42 ; Insomnia, unspecified type G47.00 and RLS (restless legs syndrome) G25.81 [facility] [id number], [place] [id number] Nov, Overactive bladder N32.81 [facility] [place] [id number] [place] [address] [id number] Nov, [facility] [id number] [place] [address] [id number] Nov, Lumbago with sciatica, left side M54.42 ; Insomnia, unspecified type G47.00 and RLS (restless legs syndrome) G25.81 [facility] [address] [id number], [place] [phone] Nov, Constipation, unspecified constipation type K59.00 ; Lumbago with sciatica , left side M54.42 ; Insomnia, unspecified type G47.00 ; Bloating R14.0 and Encounter for immunization Z23 [facility] [place] [address] [place] [address] AV [id number], [place] [phone] Oct, Dental examination Z01.20 [facility] [place] [id number], [place] [id number] Oct, RLS (restless legs syndrome) G25.81 ; Lumbago with sciatica, left side M54.42 and Insomnia, unspecified type G47.00 [facility] [place] [id number], [place] [id number] Sep, Moderate persistent asthma without complication J45.40 [facility] [address] [id number], [place] [id number] Sep, Dental examination Z01.20 [facility] [place] [id number], [place] [id number] Sep, Lumbago with sciatica, left side M54.42 and Insomnia, unspecified type G47.00 [facility] [address]00565100[place], [place] [id number] Sep, RLS (restless legs syndrome) G25.81 [facility] [address] [facility] [id number], [place] 13627[address]- [address] Aug, [facility] [place] [id number] [place] [address] [id number] Aug, [facility] [address] [id number] [place] [address] Aug Insomnia, unspecified type G47.00 [facility] [address] [id number], [place] [id number] Aug, Dental examination Z01.20 [facility] [place] [id number], [place] [id number] Aug, Vaginal discharge N89.8 [facility] [place] [id number], [place] [id number] Aug, RLS (restless legs syndrome) G25.81 [facility] [address]00565100[place] [id number] Aug, Dental examination Z01.20 [facility] [address]IN[address]00565100[place], [place] [id number] Jul, Dental examination Z01.20 [place] [id number], [place] [id number] Jul, Lumbago with sciatica, left side M54.42 ; RLS (restless legs syndrome) G25.81 ; Moderate persistent asthma without complication J45.40 and Other specified hypothyroidism E03.[address] [place] [address] [id number] Jul, Insomnia, unspecified type G47.00 and Lumbago with sciatica, left side M54.[address] [id number], [place] [id number] Jul, Dental examination Z01.20 [address] [place] [address] [id number] May, Dental examination Z01.20 and Dental caries K02.9 [address]00565100[place], [place] [id number] May, [address] [place] [address] [id number] May, RLS (restless legs syndrome) G25.81 [address]00565100[place], [place] [id number] May, Lumbago with sciatica, left side M54.42 ; Insomnia, unspecified type G47.00 and RLS (restless legs syndrome) G25.81 [place] [id number], [place] [id number] Apr, Muscle spasms of both lower extremities M62.838 ; Constipation, unspecified constipation type K59.00 and Insomnia, unspecified type G47.00 [facility] [address] [id number], [place] [id number] Apr, [facility] [place] [id number] [place] [address] [id number] Apr, Anxiety F41.9 and Lumbago with sciatica, left side M54.42 [facility] [address] AVSoutheast Health Medical [id number][place] [id number] Mar, Encounter for dental examination and cleaning without abnormal findings Z01.20 [facility] [place] [address] [id number], [place] [id number] Mar, Muscle cramp, nocturnal R25.2 [facility] [place] [id number] [place] [address] [id number] 14 Mar, 2016 RLS (restless legs syndrome) G25.81 ; Anxiety F41.9 ; Lumbago with sciatica, left side M54.42 ; Insomnia, unspecified type G47.00 and Muscle cramps R25.2 [facility] [address]00565100[place] [address] Mar, [facility] [place] [id number] [place] [address] [id number] Feb, [facility] [place] [id number] [place] [address] [id number] Feb, [facility] [place] [id number] [place] [address] [id number] Jan, [facility] [place] [id number] [place] [address] [id number] Jan, Moderate persistent asthma without complication J45.40 [facility] [place] [address] [id number], [place] [phone] Jan, [facility] [place] [id number] [place] [address] [id number] Jan, [facility] [place] [id number] [place] [address] [id number] Jan, [facility] [place] [id number], [place] [id number] Jan, [facility] [place] [address] [id number], [place] [id number] Dec, [facility] [address]00565100[place], [place] 67232177- [address] Dec, [facility] [place] [address] [id number], [place] [id number] Nov, [facility] [address] [id number], [place] [id number] Nov, [facility] [address] [id number], [place] [id number] Nov, Dental examination Z01.20 [facility] [address] [id number], [place] [id number] Nov, Bipolar depression F31.30 [facility] [id number], [place] [id number] Nov, Lumbago with sciatica, left side M54.42 ; Allergic rhinitis, unspecified allergic rhinitis type J30.9 ; Bipolar depression F31.30 ; Moderate persistent asthma without complication J45.40 ; Encounter for immunization Z23 ; Abdominal spasms R10.9 and Benign essential hypertension I10 [facility] [address] [id number], [place] [id number] Nov, [facility] [place] [address] [id number], [place] [id number] Oct, [facility] [address] [id number], [place] [id number] Oct, [facility] [place] [address] [id number], [place] [phone] Sep, [facility] [place] [address] [id number], [place] [id number] Sep, [facility] [address] [id number], [place] [phone] Sep, [facility] [address] [place], [place] [address]E [id number] [place] [address] Sep [facility] [address] [id number], [place] [id number] Aug, [facility] [address] [id number], [place] [phone] Aug, Dental examination Z01.20 [facility] [address] [facility] [id number], [place] [phone] Aug, [facility] Christianson[address] [place] [address] [id number], [place] [id number] Aug, [facility] [address] [id number], [place] [id number] Jul, Allergic rhinitis, unspecified allergic rhinitis type J30.9 ; RLS ( restless legs syndrome) G25.81 ; Lumbago with sciatica, left side M54.42 and Other chronic pain G89.29 [facility] [id number], [place] [id number] Jul, Allergic rhinitis, unspecified allergic rhinitis type J30.9 and RLS ( restless legs syndrome) G25.81 [facility] [id number], [place] [id number] Jul, [place] [address] [id number], [place] [id number] June, Hypo-osmolality and hyponatremia E87.1 and Benign essential hypertension I10 [facility] [id number], [place] [phone] June, [address]005[address]100[place], [place] [id number] June, Moderate persistent asthma without complication J45.40 ; RLS (restless legs syndrome) G25.81 ; Benign essential hypertension I10 ; Anxiety F41.9 and Constipation, unspecified constipation type K59.00 [facility] Christianson[address] [place], [place] [address]E [id number], [place] [id number] June, Encounter for dental examination and cleaning without abnormal findings Z01.20 [facility] [place] [address] [place] [address] [id number], [place] [id number] June, [facility] [place] [id number], [place] [id number] June, [address]00565100[place], [place] [id number] June, [facility] [address] [id number] [place] [id number] May, [facility] [place] [address] [id number] [place] [id number] May, [facility] [address] [id number] [place] [id number] May, [facility] [address] [id number] [place] [id number] May, [facility] [place] [address] [id number] [place] [id number] Apr, [facility] [place] [address] [id number] [place] [id number] Apr, Anxiety F41.9 [facility] [place] [address] [id number] [place] [id number] Apr, [facility] [place] [address] [id number] [place] [id number] Mar, [facility] [place] [id number] [place] [address] [id number] Mar, [facility] [place] [address] [id number], [place] [id number] Mar, [facility] [place] [address] [id number] [place] [id number] Mar, RLS (restless legs syndrome) G25.81 ; Anxiety F41.9 and Moderate persistent asthma without complication J45.40 [facility] [place] [address] [id number], [place] [id number] Mar, [facility] [place] [address] [id number], [place] [id number] Mar, [facility] [place] [address] [id number], [place] [id number] Feb, [facility] [place] [address] [id number], [place] [id number] Feb, [facility] [place] [address] [id number], [place] [id number] Feb, [address] [id number], [place] [id number] Feb, Encounter for dental examination Z01.20 [facility] [place] [address] [id number], [place] [id number] Feb, [facility] [place] [id number], [place] [id number] Jan, [facility] [place] [id number], [place] [id number] Jan, Benign essential hypertension I10 [facility] [place] [address] [id number], [place] 339883870 Jan, RLS (restless legs syndrome) G25.81 and Gastroesophageal reflux disease, esophagitis presence not specified K21.9 [facility] [place] [id number], [place] [id number] Jan, [facility] [place] [id number] [place] [address] [id number] Jan, [facility] [id number] [place] [address] [id number] Dec, Anxiety F41.9 ; Benign essential hypertension I10 and RLS (restless legs syndrome) G25.81 [facility] [place] [id number], [place] [id number] Dec, RLS (restless legs syndrome) G25.81 ; Esophageal reflux 530.81 and Anxiety F41.9 [facility] [address] [id number], [place] [id number] Dec, [facility] [id number], [place] [id number] Nov, Anxiety F41.9 [facility] [id number], [place] [id number] Nov, Anxiety F41.9 ; Encounter for immunization Z23 ; Benign essential hypertension I10 ; RLS (restless legs syndrome) G25.81 and Rhinitis J31.0 [facility] [address]00565100[place], [place] 76744827- [address] Nov, [facility] [address] [id number], [place] [id number] Nov, [facility] [address] [id number], [place] [id number] Nov, [facility] [place] [address] [facility] [id number], [place] [id number] Nov, [facility] [address] [facility] [id number], [place] [id number] Nov, [facility] [place] [facility] [address] [facility] [address] [id number], [place] [id number] Oct, [facility] [address] [facility] [id number], [place] [id number] Oct, [facility] [address] [id number], [place] [id number] Oct, [facility] [id number], [place] 625564706 Oct, Esophageal reflux 530.81 ; Asthma, unspecified, unspecified status 493.90 and Essential hypertension, benign 401.1 [facility] [place] [address] [id number], [place] [id number] Oct, [facility] [address] [id number], [place] [id number] Oct, [facility] [place] [address] [id number], [place] [id number] Oct, [facility] [address] [id number], [place] 202068691 Sep, [facility] [address] [id number], [place] [id number] Sep, Esophageal reflux 530.81 ; Insomnia 780.52 and Essential hypertension, benign 401.1 [facility] [address] [id number][place] [id number] Sep, [facility] [address] [id number][place] [id number] Sep, [facility] [address] [id number][place] [id number] Sep, [facility] [address] [id number], [place] [id number] Sep, [facility] [address] [id number][place] [id number] Sep, [facility] [address] [id number][place] [id number] Sep, [facility] [address] [id number] [place] [id number] Sep, [facility] [address] [id number] [place] [id number] Sep, Essential hypertension, benign 401.1 ; Hyponatremia 276.1 and 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 [facility] [address] [id number] [place] [id number] Sep, [facility] [address] [id number] [place] [id number] Aug, [facility] [address] [id number] [place] [id number] Aug, [facility] [address] [id number] [place] [address] [id number] Jul, [facility] [address] [id number] [place] [address] [id number] Jul, [facility] [address] [id number] [place] [address] [id number] Jul, [facility] [address] [id number], [place] [id number] Jul, [facility] [address] [id number] [place] [address] [id number] Jul, [facility] [id number] [place] [address] [id number] Jul, Insomnia 780.52 [facility] [address] [id number], [place] [id number] June, Muscle stiffness 728.9 and Insomnia 780.52 [facility] [address] [id number], [place] [id number] June, [facility] [address] [id number], [place] [id number] June, [facility] [address] [id number], [place] [id number] June, [facility] [address] [id number], [place] [id number] June, [facility] [address] [facility] [id number], [place] [id number] May, [facility] [id number] [address] May, [facility] [address] [id number] [address] May, [facility] [address] [facility] [id number], [place] [id number] Apr, [facility] [address] [facility] [id number], [place] [address] Apr, [facility] [place] [address] [facility] [id number], [place] [id number] Apr, [facility] [address] [id number] [address] Apr, [facility] [id number] [address] Apr, [facility] [id number], [place] [address] Apr, [facility] [address] [facility] [id number][place] [id number] Apr, [facility] [id number], [place] [address] Apr, [facility] [address] [id number][place] [id number] Mar, [facility] [id number], [place] [address] Mar, [facility] [address] [facility] [id number][place] [id number] Mar, [facility] [address] [facility] [id number] [address] Mar, [facility] [address] [facility] [id number][place] [id number] Mar, [facility] [id number], [place] [address] Mar, [facility] [address] [id number], [place] [address] Mar, [facility] [address] [id number] [place] [id number] Feb, [facility] [address] [facility] [id number] [address] Feb, [facility] [address] [id number] [place] [id number] Feb, [facility] [address] [id number] [place] [id number] Feb, [facility] [address] [id number] [place] [id number] Feb, [facility] [address] [facility] [id number] [address] Feb, [facility] [id number], [place] [address] Feb, [facility] [address] [facility] [id number] [address] Feb, [facility] [address] [facility] [id number][place] [id number] Feb, [facility] [address] [facility] [id number] [address] Feb, [facility] [address] [facility] [id number][place] [id number] Feb, [facility] [address] [facility] [id number][place] [address] Feb, [facility] [address] [facility] [id number], [place] [address] Jan, [facility] [address] [facility] [id number][place] [id number] Jan, [facility] [address] [facility] [id number], [place] [address] Jan, [facility] [address] [facility] [id number] [place] [id number] Jan, [facility] [address] [id number], [place] [address] Jan, [facility] [address] [facility] [id number][place] [id number] Jan, [facility] [address] [id number], [place] [address] Jan, [facility] [address] [id number], [place] [address] Jan, [facility] [address] [facility] [id number][place] [id number] Jan, [facility] [id number], [place] [address] Jan, [facility] [address] [id number], [place] [address] June, IMMUNIZATIONS No Known Immunizations SOCIAL HISTORY Never Assessed REASON FOR VISIT Waiting for call back PLAN OF CARE VITAL SIGNS MEDICATIONS Unknown Medications RESULTS No Results PROCEDURES No Known procedures INSTRUCTIONS MEDICATIONS ADMINISTERED No Known Medications MEDICAL (GENERAL) HISTORY Type Description Date Medical History hypertension Medical History asthma Medical History bladder spasms Medical History thyroid disorder Medical History bipolar disorder Medical History RLS/GERD Medical History Sleep disturbance Medical History Esophageal disorder Medical History Chronic constipation Medical History Monoclonal gammopathy of undetermined significance (MGUS) follwed by Surgical History thyroidectomy 1984 Surgical History bladder suspension 2006 Surgical History partial hysterectomy/ Ovaries removed later 2006 Surgical History tubal ligation 1983 Surgical History orthopedic surgery/ rotator cuff L shoulder 2009 Surgical History esophagus stretched (Dr. Reeves) 01/22/15 Surgical History Bilateral cataract surgery 01/26 Surgical History Esophagus stretched 2017 Hospitalization History [facility] for hyponatremia, change in mental status, angioedema 09/2014
--- OUTSIDE RECORDS SUMMARY | 2017-08-27 16:20 | XMS REPORT ---
Author Author AIMEE LING [facility] Address [address] [place] [address] Care Team Providers Care Stereo Operator Name Role Phone AIMEE LING Unavailable PROBLEMS Type Condition ICD9-CM Code NGE73-BA Code Onset Dates Condition Status SNOMED Code Problem Allergic rhinitis, unspecified allergic rhinitis type J30.9 Active 02308898 Problem Bipolar depression F31.30 Active 51437736 Problem Lumbago with sciatica, left side M54.42 Active 616890756 Problem Other chronic pain G89.29 Active 76674467 Problem Overactive bladder N32.81 Active 383641322 Problem Insomnia, unspecified type G47.00 Active 907253746 Problem Abdominal spasms R10.9 Active 52858017 Problem Other specified hypothyroidism E03.8 Active 16977040 Problem Muscle spasms of both lower extremities M62.838 Active 898574177 Problem 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 51759858 Problem Hyponatremia 276.1 Active 12314940 Problem Insomnia 780.52 Active 338135955 Problem Anxiety F41.9 Active 17729953 Problem Gastroesophageal reflux disease, esophagitis presence not specified K21.9 Active 579201414 Problem RLS (restless legs syndrome) G25.81 Active 52798585 Problem Moderate persistent asthma without complication J45.40 Active 297152666 Problem Benign essential hypertension I10 Active 2741311 Problem Constipation, unspecified constipation type K59.00 Active 09488249 ALLERGIES No Information ENCOUNTERS Encounter Location Date Diagnosis [facility] [address] [id number] [place] [id number] June, [facility] [address] [facility] [id number] [place] [id number] June, [facility] [address] [facility] [id number] [place] [id number] June, Anxiety F41.9 and Lumbago with sciatica, left side M54.42 [facility] [place] [id number], [place] [id number] May, Anxiety F41.9 and Lumbago with sciatica, left side M54.42 [facility] [address]on[address] [place] [address] [id number], [place] [id number] Apr, Dental examination Z01.20 [facility] [address]on[address] [place] [address] [id number], [place] [id number] Apr, [facility] [place] [id number] [place] [address] [id number] Apr, RLS (restless legs syndrome) G25.81 ; Lumbago with sciatica, left side M54.42 and Anxiety F41.9 [facility] [place] [id number], [place] [id number] Mar, [facility] [place] [id number] [place] [address] [id number] Mar, Insomnia, unspecified type G47.00 [facility] [place] [id number] [place] [address] [id number] Mar, Insomnia, unspecified type G47.00 and RLS (restless legs syndrome) G25.81 [facility] Christianson[address] [place] [address] [id number], [place] [id number] Mar, [facility] ARNOLDTER Sammy[address] [place] [address] [id number], [place] [id number] Mar, Dental examination Z01.20 [facility] [address] [place] [phone] Mar, [facility] [place] [id number], [place] [id number] Mar, Lumbago with sciatica, left side M54.42 and Anxiety F41.9 [facility] [id number] [place] [phone] Mar, [facility] [place] [id number], [place] [id number] Mar, Insomnia, unspecified type G47.00 [facility] [place] [address] [id number], [place] [id number] Mar, [facility] [place] [address] [id number] [place] [address] [id number] Feb, Insomnia, unspecified type G47.00 [facility] [place] [address] [id number] [place] [address] [id number] Feb, Lumbago with sciatica, left side M54.42 and Anxiety F41.9 [facility] [place] [id number] [place] [address] [id number] Feb, [facility] [place] [address] [id number] [place] [address] [id number] Feb, RLS (restless legs syndrome) G25.81 ; Lumbago with sciatica, left side M54.42 ; Overactive bladder N32.81 and Anxiety F41.9 [facility] [place] [id number] [place] [address] [id number] Jan, Overactive bladder N32.81 and Moderate persistent asthma without complication J45.40 [facility] [place] [id number] [place] [address] [id number] Jan, Lumbago with sciatica, left side M54.42 and Insomnia, unspecified type G47.00 [facility] [place] [id number] [place] [address] [id number] Jan, RLS (restless legs syndrome) G25.81 [facility] [place] [id number] [place] [address] [id number] Dec, Overactive bladder N32.81 and Other chronic pain G89.29 [facility] [place] [id number] [place] [address] [id number] 08 Dec, 2016 Lumbago with sciatica, left side M54.42 ; Insomnia, unspecified type G47.00 and RLS (restless legs syndrome) G25.81 [facility] [place] [address] [id number] [place] [address] [id number] Nov, Overactive bladder N32.81 [facility] [place] [id number] [place] [address] [id number] Nov, [facility] [place] [address] [facility] [id number], [place] [phone] Nov, Lumbago with sciatica, left side M54.42 ; Insomnia, unspecified type G47.00 and RLS (restless legs syndrome) G25.81 [facility] [place] [address] [facility] [id number], [place] [id number] Nov, Constipation, unspecified constipation type K59.00 ; Lumbago with sciatica , left side M54.42 ; Insomnia, unspecified type G47.00 ; Bloating R14.0 and Encounter for immunization Z23 [facility] [place] [address] [place] [address] AVE [id number], [place] [phone] Oct, Dental examination Z01.20 [facility] [place] [id number], [place] [id number] Oct, RLS (restless legs syndrome) G25.81 ; Lumbago with sciatica, left side M54.42 and Insomnia, unspecified type G47.00 [facility] [place] [id number], [place] [id number] Sep, Moderate persistent asthma without complication J45.40 [facility] [place] [address] [place] [address] AVE [id number], [place] [id number] Sep, Dental examination Z01.20 [facility] [place] [id number], [place] [id number] Sep, Lumbago with sciatica, left side M54.42 and Insomnia, unspecified type G47.00 [facility] [place] [id number], [place] [id number] Sep, RLS (restless legs syndrome) G25.81 [facility] [address] [facility] [id number] [place] [address] Aug, [facility] [place] [id number], [place] [id number] Aug, [facility] [place] [address] [place] [address] [id number] [place] [address] Aug Insomnia, unspecified type G47.00 [facility] [place] [address] [facility] [address] [id number], [place] [id number] Aug, Dental examination Z01.20 [facility] [place] [address] [id number], [place] [id number] Aug, Vaginal discharge N89.8 [facility] [place] [address] [id number], [place] [id number] Aug, RLS (restless legs syndrome) G25.81 [facility] [place] [address] [facility] [address] [id number], [place] [id number] Aug, Dental examination Z01.20 [facility] [place] [address] [facility] [address] [id number], [place] [id number] Jul, Dental examination Z01.20 [facility] [place] [address] [id number], [place] [id number] Jul, Lumbago with sciatica, left side M54.42 ; RLS (restless legs syndrome) G25.81 ; Moderate persistent asthma without complication J45.40 and Other specified hypothyroidism E03.8 [facility] [place] [address] [id number], [place] [id number] Jul, Insomnia, unspecified type G47.00 and Lumbago with sciatica, left side M54.42 [facility] [place] [facility] [address] [id number], [place] [id number] Jul, Dental examination Z01.20 [facility] [address] [id number], [place] [id number] May, Dental examination Z01.20 and Dental caries K02.9 [facility] [place] [address] [id number], [place] [id number] May, [facility] [place] [address] [id number], [place] [id number] May, RLS (restless legs syndrome) G25.81 [facility] [place] [address] [id number], [place] [id number] May, Lumbago with sciatica, left side M54.42 ; Insomnia, unspecified type G47.00 and RLS (restless legs syndrome) G25.81 [facility] [place] [id number] [place] [address] [id number] Apr, Muscle spasms of both lower extremities M62.838 ; Constipation, unspecified constipation type K59.00 and Insomnia, unspecified type G47.00 [facility] [place] [id number] [place] [address] [id number] Apr, [facility] [place] [id number] [place] [address] [id number] Apr, Anxiety F41.9 and Lumbago with sciatica, left side M54.42 [facility] [address] [place] [address] [id number] 27 Mar, 2016 Encounter for dental examination and cleaning without abnormal findings Z01.20 [facility] [place] [id number] [place] [address] [id number] Mar, Muscle cramp, nocturnal R25.2 [facility] [place] [id number] [place] [address] [id number] 14 Mar, 2016 RLS (restless legs syndrome) G25.81 ; Anxiety F41.9 ; Lumbago with sciatica, left side M54.42 ; Insomnia, unspecified type G47.00 and Muscle cramps R25.2 [facility] [address]00565100[place] [address] Mar, [facility] [id number] [place] [address] [id number] Feb, [facility] [id number] [place] [address] [id number] Feb, [facility] [id number] [place] [address] [id number] Jan, [place] [id number] [place] [address] [id number] Jan, Moderate persistent asthma without complication J45.40 [facility] [id number] [place] [address] [id number] Jan, [place] [id number] [place] [address] [id number] Jan, [facility] [place] [address] [id number], [place] [id number] Jan, [facility] [place] [address] [id number] [place] [address] [id number] Jan, [facility] [place] [address] [id number], [place] [id number] Dec, [facility] [address]00565100[place] [address] Dec, [facility] [place] [id number], [place] [id number] Nov, [facility] [address] [id number], [place] [id number] Nov, [facility] [place] [address] [facility] [address] [id number], [place] [id number] Nov, Dental examination Z01.20 [facility] [address] [id number] [place] [address] [id number] Nov, Bipolar depression F31.30 [facility] [id number], [place] [id number] Nov, Lumbago with sciatica, left side M54.42 ; Allergic rhinitis, unspecified allergic rhinitis type J30.9 ; Bipolar depression F31.30 ; Moderate persistent asthma without complication J45.40 ; Encounter for immunization Z23 ; Abdominal spasms R10.9 and Benign essential hypertension I10 [facility] [place] [address] [id number], [place] [id number] Nov, [facility] [address] [id number], [place] [phone] Oct, [facility] [address] [id number], [place] [id number] Oct, [facility] [place] [address] [id number] [place] [address] [id number] Sep, [facility] [place] [address] [id number], [place] [id number] Sep, [facility] [address] [id number], [place] [id number] Sep, [facility] [address] [id number] [place] [address] Sep [facility] [address] [facility] [id number], [place] [id number] Aug, [facility] [address] [id number] [place] [id number] Aug, Dental examination Z01.20 [facility] [address] [id number], [place] [id number] Aug, [facility] [place] [address] [facility] [address] [id number], [place] [id number] Aug, [facility] [address] [place] [address] [id number], [place] [id number] Jul, Allergic rhinitis, unspecified allergic rhinitis type J30.9 ; RLS ( restless legs syndrome) G25.81 ; Lumbago with sciatica, left side M54.42 and Other chronic pain G89.29 [facility] [address] [id number], [place] [id number] Jul, Allergic rhinitis, unspecified allergic rhinitis type J30.9 and RLS ( restless legs syndrome) G25.81 [facility] [address] [facility] [id number], [place] [id number] Jul, [facility] [id number], [place] [id number] June, Hypo-osmolality and hyponatremia E87.1 and Benign essential hypertension I10 [facility] [address] [id number], [place] [id number] June, [facility] [id number], [place] [id number] June, Moderate persistent asthma without complication J45.40 ; RLS (restless legs syndrome) G25.81 ; Benign essential hypertension I10 ; Anxiety F41.9 and Constipation, unspecified constipation type K59.00 [facility] [place] [address] [id number], [place] [id number] June, Encounter for dental examination and cleaning without abnormal findings Z01.20 [facility] [address] [id number], [place] [id number] June, [facility] [place] [address] [id number] [place] [id number] June, [facility] [place] [address] [id number] [place] [id number] June, [facility] [place] [address] [id number] [place] [id number] May, [facility] [place] [address] [id number] [place] [id number] May, [facility] [place] [address] [id number] [place] [id number] May, [facility] [place] [address] [id number] [place] [id number] May, [facility] [place] [address] [id number] [place] [id number] Apr, [facility] [place] [address] [id number] [place] [id number] Apr, Anxiety F41.9 [facility] [place] [address] [id number] [place] [id number] Apr, [facility] [place] [address] [id number] [place] [id number] Mar, [facility] [place] [address] [id number] [place] [id number] Mar, [facility] [place] [address] [id number], [place] [id number] Mar, [facility] [place] [address] [id number] [place] [id number] Mar, RLS (restless legs syndrome) G25.81 ; Anxiety F41.9 and Moderate persistent asthma without complication J45.40 [facility] [place] [address] [id number] [place] [id number] Mar, [facility] [place] [address] [id number], [place] [id number] Mar, [facility] [place] [address] [id number], [place] [id number] Feb, [facility] [place] [address] [id number] [place] [address] [id number] Feb, [facility] [address] [id number], [place] [id number] Feb, [address] [id number], [place] [id number] Feb, Encounter for dental examination Z01.20 [facility] [id number] [place] [address] [id number] Feb, [facility] [id number] [place] [address] [id number] Jan, [facility] [address] [id number], [place] [id number] Jan, Benign essential hypertension I10 [facility] [id number] [place] [address] [id number] Jan, RLS (restless legs syndrome) G25.81 and Gastroesophageal reflux disease, esophagitis presence not specified K21.9 [facility] [id number] [place] [address] [id number] Jan, [facility] [id number], [place] [id number] Jan, [place] [id number] [place] [address] [id number] Dec, Anxiety F41.9 ; Benign essential hypertension I10 and RLS (restless legs syndrome) G25.81 [facility] [id number], [place] [id number] Dec, RLS (restless legs syndrome) G25.81 ; Esophageal reflux 530.81 and Anxiety F41.9 [facility] [place] [address] [facility] [address] [id number], [place] [id number] Dec, [facility] [address] [id number], [place] [id number] Nov, Anxiety F41.9 [facility] [id number], [place] [id number] Nov, Anxiety F41.9 ; Encounter for immunization Z23 ; Benign essential hypertension I10 ; RLS (restless legs syndrome) G25.81 and Rhinitis J31.0 [facility] [address] [facility] [id number] [place] [address] Nov, [facility] [place] [address] [id number], [place] [id number] Nov, [facility] [address] [id number], [place] [id number] Nov, [facility] [address] [id number], [place] [id number] Nov, [place] [address] [id number], [place] [id number] Nov, [facility] [address] [id number], [place] [id number] Oct, [place] [address] [id number], [place] [id number] Oct, [facility] [address] [id number], [place] [id number] Oct, [facility] [id number], [place] [id number] Oct, Esophageal reflux 530.81 ; Asthma, unspecified, unspecified status 493.90 and Essential hypertension, benign 401.1 [facility] [id number], [place] [id number] Oct, [facility] [address] [id number], [place] [id number] Oct, [facility] [id number], [place] [id number] Oct, [facility] [id number], [place] [id number] Sep, [facility] [address] [id number], [place] 765421146 Sep, Esophageal reflux 530.81 ; Insomnia 780.52 and Essential hypertension, benign 401.1 [facility] [id number], [place] [id number] Sep, [facility] [address] [id number], [place] [id number] Sep, [facility] [place] [address] [id number], [place] 748796768 Sep, [facility] [place] [address] [id number], [place] [id number] Sep, [facility] [place] [address] [id number], [place] [id number] Sep, [facility] [place] [address] [id number], [place] [id number] Sep, [facility] [place] [id number] [place] [address] [id number] Sep, [facility] [place] [address] [id number], [place] [id number] Sep, Essential hypertension, benign 401.1 ; Hyponatremia 276.1 and 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 [facility] [place] [address] [id number], [place] [id number] Sep, [facility] [place] [address] [id number], [place] [id number] Aug, [facility] [place] [address] [id number], [place] [id number] Aug, [facility] [place] [address] [id number], [place] [id number] Jul, [facility] [place] [address] [id number] [place] [address] [id number] Jul, [facility] [place] [address] [id number][place] [id number] Jul, [facility] [address] [id number][place] [id number] Jul, [facility] [address] [id number][place] [id number] Jul, [facility] [address] [id number][place] [id number] Jul, Insomnia 780.52 [facility] [address] [id number] [place] [id number] June, Muscle stiffness 728.9 and Insomnia 780.52 [facility] [address] [id number][place] [id number] June, [facility] [address] [id number] [place] [id number] June, [facility] [address] [id number] [place] [id number] June, [facility] [address] [id number] [place] [id number] June, [facility] [address] [id number] [place] [id number] May, [facility] [place] [facility] [address] [facility] [id number] [place] [address] May, [facility] [place] [facility] [address] [facility] [id number] [place] [address] May, [facility] [address] [facility] [id number] [place] [id number] Apr, [facility] [place] [facility] [id number] [address] Apr, [facility] [address] [facility] [id number] [place] [id number] Apr, [facility] [place] [facility] [id number] [address] Apr, [facility] [place] [facility] [id number] [address] Apr, [facility] [place] [facility] [id number] [address] Apr, [facility] [address] [facility] [id number] [place] [id number] Apr, [facility] [place] [facility] [address] [facility] [id number] [address] Apr, [facility] [address] [facility] [id number] [place] [id number] Mar, [facility] [place] [facility] [address] [facility] [id number] [place] [address] Mar, [facility] [address] [facility] [id number] [place] [id number] Mar, [facility] [place] [facility] [address] [id number] [address] Mar, [facility] [address] [facility] [id number] [place] [id number] Mar, [facility] [place] [facility] [address] [facility] [id number] [address] Mar, [facility] [place] [facility] [address] [facility] [id number] [place] [address] Mar, [facility] [address] [id number] [place] [id number] Feb, [facility] [place] [facility] [address] [facility] [id number] [place] [address] Feb, [facility] [address] [facility] [id number] [place] [id number] Feb, [facility] [id number] [id number] Feb, [facility] [address] [facility] [id number][place] [id number] Feb, [facility] [place] [facility] [address] [facility] [id number] [place] [address] Feb, [facility] [place] [facility] [address] [id number] [address] Feb, [facility] [place] [facility] [address] [facility] [id number] [place] [address] Feb, [facility] [address] [facility] [id number][place] [id number] Feb, [facility] [place] [facility] [address] [facility] [id number] [place] [address] Feb, [facility] [address] [facility] [id number][place] [id number] Feb, [facility] [place] [facility] [address] [facility] [id number] [place] [address] Feb, [facility] [place] [facility] [address] [facility] [id number] [place] [address] Jan, [facility] [address] [id number][place] [id number] Jan, [facility] [id number] [address] Jan, [facility] [address] [id number][place] [id number] Jan, [facility] [id number] [address] Jan, [facility] [id number][place] [id number] Jan, [facility] [id number] [place] [address] Jan, [facility] [id number] [address] Jan, [facility] [id number] [id number] Jan, [facility] [id number] [address] Jan, [facility] [id number] [address] June, IMMUNIZATIONS No Known Immunizations SOCIAL HISTORY [...] Surgical History Esophagus stretched [address] [facility] for hyponatremia, change in mental status, angioedema 09/2014
--- OUTSIDE RECORDS SUMMARY | 2017-08-27 16:20 | XMS REPORT ---
Author Author AIMEE LING [facility] Address [address] [place] [address] Care Team Providers Care Paperhanger Supervisor Name Role Phone AIMEE LING Unavailable PROBLEMS Type Condition ICD9-CM Code IER82-HT Code Onset Dates Condition Status SNOMED Code Problem Allergic rhinitis, unspecified allergic rhinitis type J30.9 Active 52583113 Problem Bipolar depression F31.30 Active 47034354 Problem Lumbago with sciatica, left side M54.42 Active 098964351 Problem Other chronic pain G89.29 Active 31162140 Problem Overactive bladder N32.81 Active 375082291 Problem Insomnia, unspecified type G47.00 Active 408418317 Problem Abdominal spasms R10.9 Active 81172926 Problem Other specified hypothyroidism E03.8 Active 90196811 Problem Muscle spasms of both lower extremities M62.838 Active 323618546 Problem 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 59378217 Problem Hyponatremia 276.1 Active 91223108 Problem Insomnia 780.52 Active 680363021 Problem Anxiety F41.9 Active 34036151 Problem Gastroesophageal reflux disease, esophagitis presence not specified K21.9 Active 070997174 Problem RLS (restless legs syndrome) G25.81 Active 84387993 Problem Moderate persistent asthma without complication J45.40 Active 292684435 Problem Benign essential hypertension I10 Active 8400508 Problem Constipation, unspecified constipation type K59.00 Active 38136559 ALLERGIES No Information ENCOUNTERS Encounter Location Date Diagnosis [facility] [address] [id number] [place] [id number] Oct, [facility] [address] [id number] [place] [id number] Aug, [facility] [place] [address] [id number] [place] [phone] Aug, [facility] [place] [id number], [place] [id number] Aug, Acute right ankle pain M25.571 and Muscle spasms of both lower extremities M62.838 [facility] [place] [id number] [place] [address] [id number] Aug, Back muscle spasm M62.830 [facility] [place] [id number] [place] [address] [id number] Aug, Back spasm M62.830 and Anxiety F41.9 [facility] [place] [id number] [place] [address] [id number] Aug, Back spasm M62.830 and Anxiety F41.9 [facility] [id number] [place] [address] [id number] Jul, [facility] [place] [id number] [place] [address] [id number] Jul, [facility] [place] [id number] [place] [address] [id number] Jul, Back muscle spasm M62.830 and RLS (restless legs syndrome) G25.81 [facility] [place] [id number] [place] [address] [id number] Jul, Back spasm M62.830 [facility] [place] [id number] [place] [address] [id number] Jul, Back spasm M62.830 and Anxiety F41.9 [facility] [place] [id number] [place] [address] [id number] June, Insomnia, unspecified type G47.00 ; Overactive bladder N32.81 and Back spasm M62.830 [facility] [place] [id number] [place] [address] [id number] June, Anxiety F41.9 and Lumbago with sciatica, left side M54.42 [facility] [place] [id number] [place] [address] [id number] May, Anxiety F41.9 and Lumbago with sciatica, left side M54.42 [facility] [address] [id number], [place] [id number] Apr, Dental examination Z01.[address] [id number], [place] [id number] Apr, [facility] [id number] [place] [address] [id number] Apr, RLS (restless legs syndrome) G25.81 ; Lumbago with sciatica, left side M54.42 and Anxiety F41.9 [facility] [id number] [place] [address] [id number] Mar, [facility] [address] [id number] [place] [address] [id number] Mar, Insomnia, unspecified type G47.00 [facility] [id number] [place] [address] [id number] Mar, Insomnia, unspecified type G47.00 and RLS (restless legs syndrome) G25.81 [facility] [place] [address] [facility] [address] [id number], [place] [id number] Mar, [facility] [place] [address] [facility] [address] [id number], [place] [id number] Mar, Dental examination Z01.20 [facility] [id number] [place] [address] Mar, [facility] [id number], [place] [id number] Mar, Lumbago with sciatica, left side M54.42 and Anxiety F41.9 [facility] [address] [id number] [address] Mar, [facility] [id number] [place] [address] [id number] Mar, Insomnia, unspecified type G47.00 [facility] [id number], [place] [id number] Mar, [facility] [id number], [place] [id number] Feb, Insomnia, unspecified type G47.00 [facility] [address] [id number], [place] [id number] Feb, Lumbago with sciatica, left side M54.42 and Anxiety F41.9 [facility] [place] [id number] [place] [address] [id number] Feb, [facility] [id number] [place] [address] [id number] Feb, RLS (restless legs syndrome) G25.81 ; Lumbago with sciatica, left side M54.42 ; Overactive bladder N32.81 and Anxiety F41.9 [facility] [id number] [place] [address] [id number] Jan, Overactive bladder N32.81 and Moderate persistent asthma without complication J45.40 [facility] [id number] [place] [address] [id number] Jan, Lumbago with sciatica, left side M54.42 and Insomnia, unspecified type G47.00 [facility] [id number] [place] [address] [id number] Jan, RLS (restless legs syndrome) G25.81 [facility] [id number] [place] [address] [id number] Dec, Overactive bladder N32.81 and Other chronic pain G89.29 [facility] [id number] [place] [address] [id number] Dec, Lumbago with sciatica, left side M54.42 ; Insomnia, unspecified type G47.00 and RLS (restless legs syndrome) G25.81 [facility] [id number], [place] [phone] Nov, Overactive bladder N32.81 [facility] [place] [id number] [place] [address] [id number] Nov, [facility] [id number] [place] [address] [id number] Nov, Lumbago with sciatica, left side M54.42 ; Insomnia, unspecified type G47.00 and RLS (restless legs syndrome) G25.81 [facility] [address] [id number], [place] [id number] Nov, Constipation, unspecified constipation type K59.00 ; Lumbago with sciatica , left side M54.42 ; Insomnia, unspecified type G47.00 ; Bloating R14.0 and Encounter for immunization Z23 [facility] [place] [address] [place] [address] AV [id number], [place] [phone] Oct, Dental examination Z01.20 [facility] [place] [id number], [place] [id number] Oct, RLS (restless legs syndrome) G25.81 ; Lumbago with sciatica, left side M54.42 and Insomnia, unspecified type G47.00 [facility] [place] [id number], [place] [id number] Sep, Moderate persistent asthma without complication J45.40 [facility] [address] [id number], [place] [id number] Sep, Dental examination Z01.20 [facility] [place] [id number], [place] [id number] Sep, Lumbago with sciatica, left side M54.42 and Insomnia, unspecified type G47.00 [facility] [address]00565100[place] [id number] Sep, RLS (restless legs syndrome) G25.81 [facility] [address] [facility] [id number], [place] [address] Aug, [facility] [place] [address] [place] [address] [id number] Aug, [facility] [address] [id number] [place] [address] Aug Insomnia, unspecified type G47.00 [facility] [address] [id number], [place] [id number] Aug, Dental examination Z01.20 [facility] [place] [id number], [place] [id number] Aug, Vaginal discharge N89.8 [facility] [place] [id number], [place] [id number] Aug, RLS (restless legs syndrome) G25.81 [facility] [address]00565100O[place], [place] [id number] Aug, Dental examination Z01.20 [facility] [address]00565100O[place], [place] [id number] Jul, Dental examination Z01.20 [place] [id number], [place] [id number] Jul, Lumbago with sciatica, left side M54.42 ; RLS (restless legs syndrome) G25.81 ; Moderate persistent asthma without complication J45.40 and Other specified hypothyroidism E03.[address] [place] [address] [id number] Jul, Insomnia, unspecified type G47.00 and Lumbago with sciatica, left side M54.[address] [id number], [place] [id number] Jul, Dental examination Z01.[address] [place] [address] [id number] May, Dental examination Z01.20 and Dental caries K02.9 [address]00565100[place] [id number] May, [address] [place] [address] [id number] May, RLS (restless legs syndrome) G25.81 [address]00565100[place] [id number] May, Lumbago with sciatica, left side M54.42 ; Insomnia, unspecified type G47.00 and RLS (restless legs syndrome) G25.81 [place] [id number], [place] [id number] Apr, Muscle spasms of both lower extremities M62.838 ; Constipation, unspecified constipation type K59.00 and Insomnia, unspecified type G47.00 [facility] [address] [id number], [place] [id number] Apr, [facility] [place] [id number] [place] [address] [id number] Apr, Anxiety F41.9 and Lumbago with sciatica, left side M54.42 [facility] [address] [id number], [place] [id number] Mar, Encounter for dental examination and cleaning without abnormal findings Z01.20 [facility] [place] [address] [id number] [id number] Mar, Muscle cramp, nocturnal R25.2 [facility] [place] [id number] [place] [address] [id number] 14 Mar, 2016 RLS (restless legs syndrome) G25.81 ; Anxiety F41.9 ; Lumbago with sciatica, left side M54.42 ; Insomnia, unspecified type G47.00 and Muscle cramps R25.2 [facility] [address]00565100[place] [address] Mar, [facility] [place] [id number] [place] [address] [id number] Feb, [facility] [place] [id number] [place] [address] [id number] Feb, [facility] [place] [id number] [place] [address] [id number] Jan, [facility] [place] [id number] [place] [address] [id number] Jan, Moderate persistent asthma without complication J45.40 [facility] [place] [address] [id number], [place] [id number] Jan, [facility] [place] [id number] [place] [address] [id number] Jan, [facility] [place] [id number] [place] [address] [id number] Jan, [facility] [place] [id number], [place] [id number] Jan, [facility] [place] [address] [id number], [place] [id number] Dec, [facility] [place] [address]00565100[place], [place] [phone]- [address] Dec, [facility] [place] [address] [id number], [place] [id number] Nov, [facility] [address] [id number], [place] [id number] Nov, [facility] [address] [id number], [place] [id number] Nov, Dental examination Z01.20 [facility] [address] [id number], [place] [id number] Nov, Bipolar depression F31.30 [facility] [id number], [place] [id number] Nov, Lumbago with sciatica, left side M54.42 ; Allergic rhinitis, unspecified allergic rhinitis type J30.9 ; Bipolar depression F31.30 ; Moderate persistent asthma without complication J45.40 ; Encounter for immunization Z23 ; Abdominal spasms R10.9 and Benign essential hypertension I10 [facility] [address] [id number], [place] [id number] Nov, [facility] [place] [address] [id number], [place] [id number] Oct, [facility] [address] [id number], [place] [id number] Oct, [facility] [place] [address] [id number], [place] [id number] Sep, [facility] [place] [address] [id number], [place] [id number] Sep, [facility] [address] [id number], [place] [id number] Sep, [facility] [address] [place], [place] [address]E [id number] [place] [address] Sep [facility] [address] [id number], [place] [id number] Aug, [facility] [address] [id number], [place] [id number] Aug, Dental examination Z01.20 [facility] [place] [address] [facility] [id number], [place] [id number] Aug, [facility] [address] [place] [address] [id number], [place] [id number] Aug, [facility] [place] [address] [id number], [place] [id number] Jul, Allergic rhinitis, unspecified allergic rhinitis type J30.9 ; RLS ( restless legs syndrome) G25.81 ; Lumbago with sciatica, left side M54.42 and Other chronic pain G89.29 [facility] [id number], [place] [id number] Jul, Allergic rhinitis, unspecified allergic rhinitis type J30.9 and RLS ( restless legs syndrome) G25.81 [facility] [id number], [place] [id number] Jul, [place] [address] [id number], [place] [id number] June, Hypo-osmolality and hyponatremia E87.1 and Benign essential hypertension I10 [facility] [id number], [place] [id number] June, [address]00565100[place], [place] [id number] June, Moderate persistent asthma without complication J45.40 ; RLS (restless legs syndrome) G25.81 ; Benign essential hypertension I10 ; Anxiety F41.9 and Constipation, unspecified constipation type K59.00 [facility] Christianson[address] [place], [place] [address]E [id number], [place] [phone] June, Encounter for dental examination and cleaning without abnormal findings Z01.20 [facility] [place] [address] [place] [address] [id number], [place] [id number] June, [facility] [place] [id number], [place] [id number] June, [address]00565100[place], [place] [id number] June, [facility] [address] [id number] [place] [id number] May, [facility] [place] [address] [id number] [place] [id number] May, [facility] [address] [id number] [place] [id number] May, [facility] [address] [id number] [place] [id number] May, [facility] [address] [id number] [place] [id number] Apr, [facility] [place] [address] [id number] [place] [id number] Apr, Anxiety F41.9 [facility] [place] [address] [id number] [place] [id number] Apr, [facility] [address] [id number] [place] [id number] Mar, [facility] [id number] [place] [address] [id number] Mar, [facility] [address] [id number], [place] [id number] Mar, [facility] [address] [id number] [place] [id number] Mar, RLS (restless legs syndrome) G25.81 ; Anxiety F41.9 and Moderate persistent asthma without complication J45.40 [facility] [address] [id number], [place] [id number] Mar, [facility] [address] [id number], [place] [id number] Mar, [facility] [address] [id number], [place] [id number] Feb, [facility] [address] [id number], [place] [id number] Feb, [facility] [address] [id number], [place] [id number] Feb, [address] [id number], [place] [id number] Feb, Encounter for dental examination Z01.20 [facility] [place] [address] [id number], [place] [id number] Feb, [facility] [place] [id number], [place] [id number] Jan, [facility] [place] [id number], [place] [id number] Jan, Benign essential hypertension I10 [facility] [place] [address] [id number], [place] [id number] Jan, RLS (restless legs syndrome) G25.81 and Gastroesophageal reflux disease, esophagitis presence not specified K21.9 [facility] [place] [id number] [place] [address] [id number] Jan, [facility] [place] [id number] [place] [address] [id number] Jan, [facility] [id number] [place] [address] [id number] Dec, Anxiety F41.9 ; Benign essential hypertension I10 and RLS (restless legs syndrome) G25.81 [facility] [place] [id number], [place] [id number] Dec, RLS (restless legs syndrome) G25.81 ; Esophageal reflux 530.81 and Anxiety F41.[address] [facility] [address] [id number], [place] [id number] Dec, [facility] [id number], [place] [id number] Nov, Anxiety F41.9 [facility] [id number], [place] [id number] Nov, Encounter for immunization Z23 ; Anxiety F41.9 ; Benign essential hypertension I10 ; RLS (restless legs syndrome) G25.81 and Rhinitis J31.0 [facility] [place] [address]00565100[place], [place] 50276297- [address] Nov, [facility] [address] [id number], [place] [id number] Nov, [facility] [address] [id number], [place] [id number] Nov, [facility] [place] [address] [facility] [id number], [place] [id number] Nov, [facility] [address] [facility] [id number], [place] [id number] Nov, [facility] [place] [facility] [address] [id number], [place] [id number] Oct, [facility] [address] [facility] [id number], [place] [id number] Oct, [facility] [place] [address] [facility] [id number], [place] [id number] Oct, [facility] [id number], [place] [id number] Oct, Asthma, unspecified, unspecified status 493.90 ; Esophageal reflux 530.81 and Essential hypertension, benign 401.1 [facility] [address] [id number], [place] [id number] Oct, [facility] [address] [id number], [place] [id number] Oct, [facility] [address] [id number], [place] [id number] Oct, [facility] [address] [id number], [place] [id number] Sep, [facility] [place] [address] [id number], [place] [id number] Sep, Esophageal reflux 530.81 ; Insomnia 780.52 and Essential hypertension, benign 401.1 [facility] [address] [id number], [place] [id number] Sep, [facility] [address] [id number], [place] [id number] Sep, [facility] [address] [id number], [place] [id number] Sep, [facility] [address] [id number], [place] [id number] Sep, [facility] [address] [id number], [place] [id number] Sep, [facility] [address] [id number], [place] [id number] Sep, [facility] [address] [id number] [place] [id number] Sep, [facility] [address] [id number] [place] [id number] Sep, Essential hypertension, benign 401.1 ; Hyponatremia 276.1 and 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 [facility] [address] [id number] [place] [id number] Sep, [facility] [address] [id number] [place] [id number] Aug, [facility] [address] [id number] [place] [id number] Aug, [facility] [address] [id number] [place] [id number] Jul, [facility] [address] [id number] [place] [id number] Jul, [facility] [address] [id number] [place] [address] [id number] Jul, [facility] [address] [id number][place] [id number] Jul, [facility] [address] [id number] [place] [id number] Jul, [facility] [id number] [place] [id number] Jul, Insomnia 780.52 [facility] [address] [id number][place] [id number] June, Muscle stiffness 728.9 and Insomnia 780.52 [facility] [address] [id number][place] [id number] June, [facility] [address] [id number][place] [id number] June, [facility] [address] [id number], [place] [id number] June, [facility] [address] [id number][place] [id number] June, [facility] [address] [facility] [id number], [place] [id number] May, [facility] [id number] [address] May, [facility] [address] [id number], [place] [address] May, [facility] [address] [facility] [id number][place] [id number] Apr, [facility] [address] [facility] [id number], [place] [address] Apr, [facility] [address] [facility] [facility] [id number] [id number] Apr, [facility] [id number] [address] Apr, [facility] [id number], [place] [address] Apr, [facility] [id number], [place] [address] Apr, [facility] [address] [facility] [id number][place] [id number] Apr, [facility] [id number], [place] [address] Apr, [facility] [address] [id number][place] [id number] Mar, [facility] [address] [id number], [place] [address] Mar, [facility] [address] [facility] [id number][place] [id number] Mar, [facility] [address] [facility] [id number], [place] [address] Mar, [facility] [address] [facility] [id number][place] [id number] Mar, [facility] [id number], [place] [address] Mar, [facility] [address] [id number], [place] [address] Mar, [facility] [address] [id number] [place] [id number] Feb, [facility] [address] [facility] [id number], [place] [address] Feb, [facility] [address] [id number] [place] [id number] Feb, [facility] [address] [id number] [place] [id number] Feb, [facility] [address] [id number] [place] [id number] Feb, [facility] [address] [facility] [id number], [place] [address] Feb, [facility] [id number], [place] [address] Feb, [facility] [address] [facility] [id number], [place] [address] Feb, [facility] [address] [facility] [id number][place] [id number] Feb, [facility] [address] [facility] [id number], [place] [address] Feb, [facility] [address] [facility] [id number], [place] [id number] Feb, [facility] [address] [facility] [id number], [place] [address] Feb, [facility] [address] [facility] [id number], [place] [address] Jan, [facility] [address] [facility] [id number], [place] [id number] Jan, [facility] [address] [facility] [id number], [place] [address] Jan, [facility] [address] [facility] [id number] [place] [id number] Jan, [facility] [place] [address] [id number], [place] [address] Jan, [facility] [address] [facility] [id number], [place] [id number] Jan, [facility] [place] [address] [id number], [place] [address] Jan, [facility] [place] [address] [id number], [place] [address] Jan, [facility] [address] [facility] [id number][place] [id number] Jan, [facility] [place] [id number], [place] [address] Jan, [facility] [place] [address] [id number], [place] [address] June, IMMUNIZATIONS No Known Immunizations SOCIAL HISTORY Never Assessed REASON FOR VISIT 04/18/17-Tramadol, Klonopin & Ambien refill PLAN OF CARE VITAL SIGNS MEDICATIONS Medication Instructions Dosage Frequency Start Date End Date Duration Status Clonazepam 0.5 MG Orally Once a day at HS, PRN for RLS. Must last 28 days 1.5 tablet Jul, Active Ambien 10 mg Orally Once a day. Must last 28 days 1 Tablet Apr, 0 days Active Tramadol HCl 50 mg Orally 2 times a day must last 28 days 1 tablet Active Gabapentin 800 MG Orally Once a day 1 tablet 24h Active Neurontin 300 MG Orally Three times a day 1 capsule 8h Active RESULTS No Results PROCEDURES No Known procedures [...] Surgical History Esophagus stretched 2017 Hospitalization History [facility] for hyponatremia, change in mental status, angioedema 09/2014
--- OUTSIDE RECORDS SUMMARY | 2017-08-27 16:21 | XMS REPORT ---
Author Author ANURADHA GARZA [facility] Address [address] [place] [address] Care Team Providers Care Chemist Physical Name Role Phone ANURADHA GARZA Unavailable PROBLEMS Type Condition ICD9-CM Code DRU78-BH Code Onset Dates Condition Status SNOMED Code Problem Allergic rhinitis, unspecified allergic rhinitis type J30.9 Active 73879844 Problem Bipolar depression F31.30 Active 93417703 Problem Lumbago with sciatica, left side M54.42 Active 537788392 Problem Other chronic pain G89.29 Active 38284231 Problem Overactive bladder N32.81 Active 206377111 Problem Insomnia, unspecified type G47.00 Active 033890837 Problem Abdominal spasms R10.9 Active 94411126 Problem Other specified hypothyroidism E03.8 Active 01748633 Problem Muscle spasms of both lower extremities M62.838 Active 189408180 Problem 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 59320592 Problem Hyponatremia 276.1 Active 30930714 Problem Insomnia 780.52 Active 329739013 Problem Anxiety F41.9 Active 68223748 Problem Gastroesophageal reflux disease, esophagitis presence not specified K21.9 Active 139848535 Problem RLS (restless legs syndrome) G25.81 Active 81585323 Problem Moderate persistent asthma without complication J45.40 Active 338721487 Problem Benign essential hypertension I10 Active 1907021 Problem Constipation, unspecified constipation type K59.00 Active 36597314 ALLERGIES No Information ENCOUNTERS Encounter Location Date Diagnosis [facility] [address] [id number] [place] [id number] Aug, [facility] [address] [id number] [place] [id number] Aug, [facility] [address] [facility] [place] [id number] [place] [id number] Jul, [facility] [address] [id number], [place] [id number] Jul, Back spasm M62.830 [facility] [id number] [place] [address] [id number] Jul, Back spasm M62.830 and Anxiety F41.9 [facility] [place] [id number], [place] [id number] June, Insomnia, unspecified type G47.00 ; Overactive bladder N32.81 and Back spasm M62.830 [facility] [place] [id number], [place] [id number] June, Anxiety F41.9 and Lumbago with sciatica, left side M54.42 [facility] [place] [id number], [place] [id number] May, Anxiety F41.9 and Lumbago with sciatica, left side M54.42 [facility] [address] [id number] [place], [place] [id number] Apr, [facility] examination Z01.20 [facility] [place] [address] [id number] [place] [id number] Apr, [facility] [place] [id number], [place] [id number] Apr, RLS (restless legs syndrome) G25.81 ; Lumbago with sciatica, left side M54.42 and Anxiety F41.9 [facility] [place] [address]00565100[place] [id number] Mar, [facility] [place] [address]00565100[place] [address] Mar, Insomnia, unspecified type G47.00 [facility] [place] [id number], [place] [id number] Mar, Insomnia, unspecified type G47.00 and RLS (restless legs syndrome) G25.81 [facility] [address] [id number] [place] [id number] Mar, [facility] [address] [id number] [place] [id number] Mar, Dental examination Z01.20 [facility] [address]00565100[place], [place] [address] Mar, [facility] [place] [id number], [place] [id number] Mar, Lumbago with sciatica, left side M54.42 and Anxiety F41.9 [facility] [address] [facility] [id number], [place] 72760[address] Mar, [facility] [place] [id number], [place] [id number] Mar, Insomnia, unspecified type G47.00 [facility] [place] [id number], [place] [id number] Mar, [facility] [id number], [place] [id number] Feb, Insomnia, unspecified type G47.00 [facility] [place] [id number], [place] [id number] Feb, Lumbago with sciatica, left side M54.42 and Anxiety F41.9 [facility] [id number], [place] [id number] Feb, [facility] [id number], [place] 067241761 Feb, RLS (restless legs syndrome) G25.81 ; Lumbago with sciatica, left side M54.42 ; Overactive bladder N32.81 and Anxiety F41.9 [facility] [address] [facility] [place] [id number], [place] [id number] Jan, Overactive bladder N32.81 and Moderate persistent asthma without complication J45.40 [facility] [place] [id number], [place] 105157260 Jan, Lumbago with sciatica, left side M54.42 and Insomnia, unspecified type G47.00 [facility] [id number], [place] [id number] Jan, RLS (restless legs syndrome) G25.81 [facility] [id number], [place] 649262780 Dec, Overactive bladder N32.81 and Other chronic pain G89.29 [facility] [id number], [place] [id number] Dec, Lumbago with sciatica, left side M54.42 ; Insomnia, unspecified type G47.00 and RLS (restless legs syndrome) G25.81 [facility] [id number], [place] [id number] Nov, Overactive bladder N32.81 [facility] [id number] [place] [address] [id number] Nov, [facility] [id number] [place] [address] [id number] Nov, Lumbago with sciatica, left side M54.42 ; Insomnia, unspecified type G47.00 and RLS (restless legs syndrome) G25.81 [address]00565100[place] [address] Nov, Constipation, unspecified constipation type K59.00 ; Lumbago with sciatica , left side M54.42 ; Insomnia, unspecified type G47.00 ; Bloating R14.0 and Encounter for immunization Z23 [address] [id number] [place], [place] [id number] Oct, Dental examination Z01.20 [address]00565100[place], [place] [address] Oct, RLS (restless legs syndrome) G25.81 ; Lumbago with sciatica, left side M54.42 and Insomnia, unspecified type G47.00 [address] [place] [address] [id number] Sep, Moderate persistent asthma without complication J45.[address] [id number] [place] 143143961 Sep, Dental examination Z01.20 [address]00565100[place], [place] [address]327218 Sep, Lumbago with sciatica, left side M54.42 and Insomnia, unspecified type G47.00 [facility] [id number], [place] [id number] Sep, RLS (restless legs syndrome) G25.81 [facility] [address]00565100[place], [place] [address] Aug, [facility] [place] [address]00565100[place], [place] [id number] Aug, [facility] [place] [address] [place] [address] [id number] [place] [address] Aug Insomnia, unspecified type G47.00 [facility] [place] [address] [id number] [place] 628140938 Aug, Dental examination Z01.20 [facility] [address]00565100[place], [place] 8446[address] Aug, Vaginal discharge N89.8 [facility] [address] [place] [address] [id number] Aug, RLS (restless legs syndrome) G25.81 [facility] [place] [address] [id number] [place], [place] [id number] Aug, Dental examination Z01.20 [facility] [place] [address] [id number] [place] [id number] Jul, Dental examination Z01.20 [facility] [address]00565100[place], [place] [id number] Jul, Lumbago with sciatica, left side M54.42 ; RLS (restless legs syndrome) G25.81 ; Moderate persistent asthma without complication J45.40 and Other specified hypothyroidism E03.8 [facility] [address]00565100[place] [address] Jul, Insomnia, unspecified type G47.00 and Lumbago with sciatica, left side M54.42 [facility] [place] [address] [id number] [place], [place] 779776816 Jul, Dental examination Z01.20 [place] [address] [facility] [id number] [place] [id number] May, Dental examination Z01.20 and Dental caries K02.9 [facility] [id number], [place] [id number] May, [facility] [address]00565100[place], [place] 707130197 May, RLS (restless legs syndrome) G25.81 [facility] [id number], [place] [id number] May, Lumbago with sciatica, left side M54.42 ; Insomnia, unspecified type G47.00 and RLS (restless legs syndrome) G25.81 [facility] [id number], [place] [id number] Apr, Muscle spasms of both lower extremities M62.838 ; Constipation, unspecified constipation type K59.00 and Insomnia, unspecified type G47.00 [facility] [address]00565100[place], [place] [id number] Apr, [place] [id number] [place] [address] [id number] Apr, Anxiety F41.9 and Lumbago with sciatica, left side M54.[address] [id number] [place] [id number] Mar, Encounter for dental examination and cleaning without abnormal findings Z01.20 [facility] [address]00565100[place], [place] 430561025 Mar, Muscle cramp, nocturnal R25.2 [facility] [address] [place] [address] [id number] 14 Mar, 2016 RLS (restless legs syndrome) G25.81 ; Anxiety F41.9 ; Lumbago with sciatica, left side M54.42 ; Insomnia, unspecified type G47.00 and Muscle cramps R25.2 [facility] [address]00565100[place], [place] 054360[address]- [address] Mar, [facility] [place] [address] [id number], [place] [id number] Feb, [facility] [place] [address] [id number], [place] [id number] Feb, [facility] [place] [address] [id number], [place] [id number] Jan, [facility] [place] [address] [id number], [place] [id number] Jan, Moderate persistent asthma without complication J45.40 [facility] [place] [address] [id number], [place] 765231690 Jan, [facility] [address] [id number], [place] [id number] Jan, [facility] [place] [address] [id number], [place] [id number] Jan, [facility] [place] [address] [id number], [place] [id number] Jan, [facility] [place] [address] [id number], [place] [id number] Dec, [facility] [address] [facility] [id number], [place] [address] Dec, [facility] [place] [address] [id number], [place] [id number] Nov, [facility] [place] [id number], [place] [id number] Nov, [facility] [address] [id number] [place] [id number] Nov, Dental examination Z01.20 [facility] [place] [address] [id number], [place] [id number] Nov, Bipolar depression F31.30 [facility] [place] [address] [id number], [place] [id number] Nov, Lumbago with sciatica, left side M54.42 ; Allergic rhinitis, unspecified allergic rhinitis type J30.9 ; Bipolar depression F31.30 ; Moderate persistent asthma without complication J45.40 ; Encounter for immunization Z23 ; Abdominal spasms R10.9 and Benign essential hypertension I10 [facility] [place] [address] [id number], [place] [id number] Nov, [facility] [place] [address] [id number], [place] [id number] Oct, [facility] [address] [id number], [place] [id number] Oct, [facility] [address] [id number], [place] [id number] Sep, [facility] [place] [address] [id number], [place] [id number] Sep, [facility] [place] [address] [id number], [place] [id number] Sep, [facility] [address] [id number] [place] [address] Sep [facility] [place] [address] [id number], [place] [id number] Aug, [facility] [address] [id number], [place] [id number] Aug, Dental examination Z01.20 [facility] [address] [id number], [place] [id number] Aug, [address]00565100[place] [id number] Aug, [facility] [address] [id number], [place] [id number] Jul, Allergic rhinitis, unspecified allergic rhinitis type J30.9 ; RLS ( restless legs syndrome) G25.81 ; Lumbago with sciatica, left side M54.42 and Other chronic pain G89.29 [facility] [place] [address] [id number], [place] [id number] Jul, Allergic rhinitis, unspecified allergic rhinitis type J30.9 and RLS ( restless legs syndrome) G25.81 [facility] [address] [id number], [place] [id number] Jul, [facility] [place] [address] [id number], [place] [id number] June, Hypo-osmolality and hyponatremia E87.1 and Benign essential hypertension I10 [facility] [place] [id number] [place] [address] [id number] June, [facility] [place] [address] [place] [address] [id number] June, Moderate persistent asthma without complication J45.40 ; RLS (restless legs syndrome) G25.81 ; Benign essential hypertension I10 ; Anxiety F41.9 and Constipation, unspecified constipation type K59.00 [facility] [place] [id number] [place] [address] [id number] June, Encounter for dental examination and cleaning without abnormal findings Z01.20 [facility] [place] [address] [id number] [place] [address] [id number] June, [facility] [place] [address] [id number] [place] [address] [id number] June, [facility] [place] [address] [place] [address] [id number] June, [facility] [place] [address] [place] [address] [id number] May, [facility] [place] [address] [place] [address] [id number] May, [facility] [place] [address] [place] [address] [id number] May, [facility] [place] [address] [place] [address] [id number] May, [facility] [place] [address] [place] [address] [id number] Apr, [facility] [address] [id number] [place] [address] [id number] Apr, Anxiety F41.9 [facility] [place] [id number] [place] [address] [id number] Apr, [facility] [address] [place] [address] [id number] Mar, [facility] [place] [address] [id number] [place] [address] [id number] Mar, [facility] [address] [place] [address], [place] [id number] Mar, [facility] [place] [id number] [place] [address] [id number] Mar, RLS (restless legs syndrome) G25.81 ; Anxiety F41.9 and Moderate persistent asthma without complication J45.40 [facility] [place] [id number] [place] [address] [id number] Mar, [facility] [place] [address] [id number] [place] [address] [id number] Mar, [facility] [place] [address] [id number] [place] [address] [id number] Feb, [facility] [place] [address] [id number] [place] [address] [id number] Feb, [facility] [address] [id number] [place] [address] [id number] Feb, [address]00565100[place] [id number] Feb, Encounter for dental examination Z01.20 [facility] [address] [id number], [place] [id number] Feb, [facility] [address] [id number] [place] [address] [id number] Jan, [facility] [address] [id number] [place] [address] [id number] Jan, Benign essential hypertension I10 [facility] [place] [address] [id number] [place] [address] [id number] Jan, RLS (restless legs syndrome) G25.81 and Gastroesophageal reflux disease, esophagitis presence not specified K21.9 [facility] [place] [address] [id number], [place] [id number] Jan, [facility] [place] [address] [id number] [place] [address] [id number] Jan, [facility] [place] [address] [id number] [place] [address] [id number] Dec, Anxiety F41.9 ; Benign essential hypertension I10 and RLS (restless legs syndrome) G25.81 [facility] [place] [id number], [place] [id number] Dec, RLS (restless legs syndrome) G25.81 ; Esophageal reflux 530.81 and Anxiety F41.9 [facility] [address] [id number] [place], [place] [id number] Dec, [facility] [place] [address] [id number], [place] [id number] Nov, Anxiety F41.9 [facility] [place] [id number] [place] [address] [id number] Nov, Encounter for immunization Z23 ; Anxiety F41.9 ; Benign essential hypertension I10 ; RLS (restless legs syndrome) G25.81 and Rhinitis J31.0 [facility] [address]00565100[place], [place] [address] Nov, [facility] [place] [id number], [place] [id number] Nov, [facility] [place] [address] [id number] [place], [place] [id number] Nov, [facility] [place] [id number], [place] [id number] Nov, [address]00565100[place] [id number] Nov, [facility] [place] [address] [facility] [id number] [place], [place] [id number] Oct, [address]00565100[place] [id number] Oct, [facility] [place] [address] [id number], [place] [id number] Oct, [facility] [place] [id number] [place] [address] [id number] Oct, Asthma, unspecified, unspecified status 493.90 ; Esophageal reflux 530.81 and Essential hypertension, benign 401.1 [facility] [place] [address] [id number], [place] [id number] Oct, [facility] [id number] [place] [address] [id number] Oct, [facility] [place] [address] [id number] [place] [id number] Oct, [facility] [address] [id number] [place] [id number] Sep, [facility] [address] [id number] [place] [id number] Sep, Esophageal reflux 530.81 ; Insomnia 780.52 and Essential hypertension, benign 401.1 [facility] [address] [id number] [place] [id number] Sep, [facility] [address] [id number] [place] [id number] Sep, [facility] [address] [id number] [place] [id number] Sep, [facility] [place] [address] [id number] [place] [id number] Sep, [facility] [place] [address] [id number] [place] [id number] Sep, [facility] [address] [id number] [place] [id number] Sep, [facility] [place] [address] [id number] [place] [id number] Sep, [facility] [place] [address] [id number] [place] [id number] Sep, Essential hypertension, benign 401.1 ; Hyponatremia 276.1 and 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 [facility] [address] [id number] [place] [id number] Sep, [facility] [address] [id number] [place] [id number] Aug, [facility] [place] [address] [id number] [place] [id number] Aug, [facility] [address] [id number] [place] [id number] Jul, [facility] [place] [address] [id number], [place] [id number] Jul, [facility] [place] [address] [id number], [place] [id number] Jul, [facility] [address] [id number], [place] [id number] Jul, [facility] [address] [id number], [place] [id number] Jul, [facility] [address] [id number], [place] [id number] Jul, Insomnia 780.52 [facility] [id number] [place] [address] [id number] June, Muscle stiffness 728.9 and Insomnia 780.52 [facility] [address] [id number], [place] [id number] June, [facility] [address] [id number], [place] [id number] June, [facility] [id number], [place] [id number] June, [facility] [id number], [place] [id number] June, [facility] [id number], [place] [id number] May, [facility] [id number] [place] [address]09- 9272 May, [facility] [id number] [place] [address] 86826- 8867 May, [facility] [address] [id number][place] [id number] Apr, [facility] [id number] [place] [address] 80313- 0522 Apr, [facility] [address] [id number], [place] [id number] Apr, [facility] [id number] [place] [address] 21389- [phone] Apr, [facility] [id number] [place] [address] [phone]- [phone] Apr, [facility] [id number] [place] [address] 65307- 2956 Apr, [facility] [address] [facility] [id number] [place] [id number] Apr, [facility] [address] [facility] [id number], [place] [address] Apr, [facility] [address] [id number] [place] [id number] Mar, [facility] [id number], [place] [address] Mar, [facility] [address] [facility] [place] [id number] [place] [id number] Mar, [facility] [id number], [place] [address] Mar, [facility] [id number] [place] [id number] Mar, [facility] [id number], [place] [address] Mar, [facility] [id number], [place] [address] Mar, [facility] [address] [id number], [place] [id number] Feb, [facility] [id number], [place] [address] Feb, [facility] [id number], [place] [id number] Feb, [facility] [address] [facility] [place] [id number][place] [id number] Feb, [facility] [address] [facility] [id number][place] [id number] Feb, [facility] [facility] [address] [facility] [id number], [place] [address] Feb, [facility] [id number], [place] [address] Feb, [facility] [address] [facility] [id number], [place] [address] Feb, [facility] [address] [id number][place] [id number] Feb, [facility] [address] [facility] [id number], [place] [address] Feb, [facility] [id number] [id number] Feb, [facility] [id number], [place] [address] Feb, [facility] [id number], [place] [address] Jan, [facility] [address] [id number][place] [id number] Jan, [facility] [id number], [place] [address] Jan, [facility] [id number] [id number] Jan, [facility] [address] [id number], [place] [address] Jan, [facility] [id number] [id number] Jan, [facility] [address] [id number], [place] [address] Jan, [facility] [address] [id number], [place] [address] Jan, [facility] [address] [facility] [id number][place] [id number] Jan, [facility] [id number], [place] [address] Jan, [facility] [address] [id number], [place] [address] June, IMMUNIZATIONS No Known Immunizations SOCIAL HISTORY Never Assessed REASON FOR VISIT Controlled Refill Requests PLAN OF CARE VITAL SIGNS MEDICATIONS Medication Instructions Dosage Frequency Start Date End Date Duration Status Tramadol HCl 50 mg Orally 2 times a day must last 1 month 1 tablet Active Zolpidem Tartrate 10 mg Orally Once a day must last 1 m 1 tablet at bedtime as needed Active RESULTS No Results PROCEDURES No Known [...] Surgical History Esophagus stretched 2017 Hospitalization History [facility] for hyponatremia, change in mental status, angioedema 09/2014
--- OUTSIDE RECORDS SUMMARY | 2017-08-27 16:21 | XMS REPORT ---
Author Author AIMEE LING Organization [employer] Address Unknown Phone Unavailable Care Team Providers Care Surgical Dental Assistant Name Role Phone AIMEE LING CP Unavailable Allergies No Known Allergies Problems Problem Type Condition Code Onset Dates Condition Status Problem Benign essential hypertension I10 Active Problem Gastroesophageal reflux disease, esophagitis presence not specified K21.9 Active Problem Anxiety F41.9 Active Problem Abdominal spasms R10.9 Active Problem Lumbago with sciatica, left side M54.42 Active Problem Bipolar depression F31.30 Active Problem Encounter for dental examination and cleaning without abnormal findings Z01.20 Active Problem Moderate persistent asthma without complication J45.40 Active Problem Allergic rhinitis, unspecified allergic rhinitis type J30.9 Active Problem Constipation, unspecified constipation type K59.00 Active Problem Insomnia 780.52 Active Problem 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 Problem Hyponatremia 276.1 Active Problem Bipolar disorder, unspecified 296.80 Active Problem RLS (restless legs syndrome) G25.81 Active Medications Medication Code System Code Instructions Start Date End Date Status Dosage Zolpidem Tartrate [facility] [address]-88 10 mg Orally Once a day must last 1 m 1 tablet at bedtime as needed Clonazepam [facility] [address]-88 0.5 MG Orally Once a day at HS, PRN for RLS. Must last one month August 04, 2014 1 tablet Tramadol HCl [facility] [address]-33 50 mg Orally 2 times a day August 11, 2015 1 tablet as needed Results No Known Results Summary Purpose [employer] Submission
--- OUTSIDE RECORDS SUMMARY | 2017-08-27 16:21 | XMS REPORT ---
Author Author AIMEE LING [facility] [employer] Address Unknown Phone Unavailable Care Team Providers Care Cardiac Nurse Name Role Phone AIMEE LING CP Unavailable Allergies, Adverse Reactions, Alerts Substance Reaction Event Type Lyrica hives Drug Allergy Problems Problem Type Condition Code Onset Dates Condition Status Problem Bipolar disorder, unspecified 296.80 Active Problem Esophageal reflux 530.81 Active Problem Need for prophylactic vaccination and inoculation, Influenza V04.81 Active Problem Anxiety F41.9 Active Problem Benign essential hypertension I10 Active Problem Gastroesophageal reflux disease, esophagitis presence not specified K21.9 Active Problem 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 Problem Insomnia 780.52 Active Problem RLS (restless legs syndrome) G25.81 Active Problem Hyponatremia 276.1 Active Assessment Gastroesophageal reflux disease, esophagitis presence not specified K21.9 Active Problem Restless legs syndrome [RLS] 333.94 Active Problem Unspecified constipation 564.00 Active Assessment RLS (restless legs syndrome) G25.81 Active Problem Essential hypertension, benign 401.1 Active Problem Contact dermatitis and other eczema, due to unspecified cause 692.9 Active Problem Asthma, unspecified, unspecified status 493.90 Active Medications Medication Code System Code Instructions Start Date End Date Status Dosage tramadol NDC 0 50 mg orally 3 times a day prn Must last 1 mo April 29, 2014 1 tablet Zolpidem Tartrate [facility] [address]-45 10 MG Orally Once a day must last 1 m 1 tablet at bedtime as needed Premarin [facility] [address]-14 0.9 MG Orally Once a day Jan 14, 2014 1 tablet HydrOXYzine HCl [facility] [address]-33 25 MG Orally 3 times a day Nov 20, 2014 1 tablet as needed Protonix [facility] [address]-28 40 MG Orally Once a day 1 tablet Advair Diskus [facility] [address]-26 250-50 MCG/DOSE Inhalation Twice a day Mar 03, 2014 inhale 1 puff Lamictal [facility] [address]-46 100 MG Orally Once a day Sep 24, 2014 1 tablet Lisinopril-Hydrochlorothiazide [facility] [address]-93 20-12.5 MG Orally Once a day Oct 15, 2014 1 tablet MiraLax [facility] [address]-09 17 gram/dose Orally Once a day April 29, 2014 1 packet mixed with 8 ounces of fluid Gabapentin [facility] [address]-15 300 MG Orally 1 tab in am and midday, 2 tabs at hs Mar 04, 2014 1-2 Tablet BusPIRone HCl [facility] [address]-41 15 MG Orally Three times a day June 09, 2014 1 tablet Zyprexa [facility] [address]-25 20 MG Orally Once a day Jan 29, 2014 1 tablet ProAir HFA [facility] [address]-01 108 (90 Base) MCG/ACT Inhalation 4 times a day for wheezing or SOB Oct 21, 2014 2 puffs as needed Imdur [facility] [address]-87 30 MG Orally Once a day Oct 08, 2014 1 tablet Clonazepam [facility] [address]-40 0.5 MG Orally Once a day at HS, PRN for RLS. Must last one month August 04, 2014 1 tablet Flonase [facility] [address]-66 50 MCG/ACT Nasally 2 times a day Nov 30, 2014 1 spray in each nostril Levothyroxine Sodium [facility] [address]-38 50 MCG Orally Once a day 1 tablet Procedures Procedure Coding System Code Date Office Visit, Est Pt., Level 3 CPT-4 54442 Jan 27, 2015 Vital Signs Date/Time: Jan 27, 2015 Temperature 97.9 F Weight 195.6 lbs Height 63 in BMI 34.65 Index Blood Pressure Diastolic 72 mmHg Blood Pressure Systolic 128 mmHg Cardiac Monitoring Heart Rate 80 bpm Results No Known Results Summary Purpose [employer] Submission
--- OUTSIDE RECORDS SUMMARY | 2017-08-27 16:21 | XMS REPORT ---
Author Author AIMEE LING Organization [employer] Address Unknown Phone Unavailable Care Team Providers Care Environmental Maintenance Worker Name Role Phone AIMEE LING CP Unavailable Allergies No Known Allergies Problems Problem Type Condition Code Onset Dates Condition Status Problem Hyponatremia 276.1 Active Problem Benign essential hypertension I10 Active Problem RLS (restless legs syndrome) G25.81 Active Problem Allergic rhinitis, unspecified allergic rhinitis type J30.9 Active Problem Constipation, unspecified constipation type K59.00 Active Problem Lumbago with sciatica, left side M54.42 Active Problem Gastroesophageal reflux disease, esophagitis presence not specified K21.9 Active Problem Anxiety F41.9 Active Problem Encounter for dental examination and cleaning without abnormal findings Z01.20 Active Problem Moderate persistent asthma without complication J45.40 Active Problem Bipolar disorder, unspecified 296.80 Active Problem Insomnia 780.52 Active Problem 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 Must last one month August 04, 2014 1 tablet Results No Known Results Summary Purpose [employer]ClinicalWorks Submission
--- OUTSIDE RECORDS SUMMARY | 2017-08-27 16:21 | XMS REPORT ---
Author Author AIMEE LING [facility] Address [address] [place] [address] Care Team Providers Care Shipsmith Name Role Phone AIMEE LING Unavailable PROBLEMS Type Condition ICD9-CM Code UYQ30-LH Code Onset Dates Condition Status SNOMED Code Problem Allergic rhinitis, unspecified allergic rhinitis type J30.9 Active 90470662 Problem Bipolar depression F31.30 Active 46458673 Problem Lumbago with sciatica, left side M54.42 Active 021203383 Problem Other chronic pain G89.29 Active 97690722 Problem Overactive bladder N32.81 Active 984169009 Problem Insomnia, unspecified type G47.00 Active 490113355 Problem Abdominal spasms R10.9 Active 20791059 Problem Other specified hypothyroidism E03.8 Active 28077377 Problem Muscle spasms of both lower extremities M62.838 Active 693732459 Problem 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 84729314 Problem Hyponatremia 276.1 Active 41749517 Problem Insomnia 780.52 Active 942417846 Problem Anxiety F41.9 Active 86984080 Problem Gastroesophageal reflux disease, esophagitis presence not specified K21.9 Active 385601193 Problem RLS (restless legs syndrome) G25.81 Active 56279267 Problem Moderate persistent asthma without complication J45.40 Active 091557571 Problem Benign essential hypertension I10 Active 7595661 Problem Constipation, unspecified constipation type K59.00 Active 91503116 ALLERGIES No Information ENCOUNTERS Encounter Location Date Diagnosis [facility] [address] [id number] [place] [phone] Oct, [facility] [address] [id number] [place] [id number] Oct, [facility] [place] [address] [id number] [place] [id number] Aug, [facility] [place] [id number] [place] [id number] Aug, Back muscle spasm M62.830 [facility] [place] [address] [id number] [place] [phone] Aug, Back spasm M62.830 and Anxiety F41.9 [facility] [place] [address] [id number] [place] [id number] Aug, Back spasm M62.830 and Anxiety F41.9 [facility] [address] [id number] [place] [id number] Jul, [facility] [place] [id number] [place] [id number] Jul, [facility] [place] [id number] [place] [address] [id number] Jul, Back muscle spasm M62.830 and RLS (restless legs syndrome) G25.81 [facility] [place] [id number] [place] [address] [phone] Jul, Back spasm M62.830 [facility] [place] [id number] [place] [id number] Jul, Back spasm M62.830 and Anxiety F41.9 [facility] [place] [id number] [place] [address] [phone] June, Insomnia, unspecified type G47.00 ; Overactive bladder N32.81 and Back spasm M62.830 [facility] [place] [id number] [place] [id number] June, Anxiety F41.9 and Lumbago with sciatica, left side M54.42 [facility] [place] [address] [facility] [id number] [place] [id number] May, Anxiety F41.9 and Lumbago with sciatica, left side M54.42 [facility] [address] [id number] [place] [id number] Apr, Dental examination Z01.20 [facility] [address] [id number] [place] [id number] Apr, [facility] [place] [address] [id number] [place] [id number] Apr, RLS (restless legs syndrome) G25.81 ; Lumbago with sciatica, left side M54.42 and Anxiety F41.9 [facility] [place] [address] [id number] [place] [id number] Mar, [facility] [place] [id number] [place] [address] [id number] Mar, Insomnia, unspecified type G47.00 [facility] [place] [id number] [place] [address] [phone] Mar, Insomnia, unspecified type G47.00 and RLS (restless legs syndrome) G25.81 [facility] [place] [address] [facility] [address] [id number] [place] [id number] Mar, [facility] [address] [id number] [place] [id number] Mar, Dental examination Z01.20 [facility] [id number] [place] [phone] Mar, [facility] [place] [id number] [place] [address] [id number] Mar, Lumbago with sciatica, left side M54.42 and Anxiety F41.9 [facility] [id number] [place] [address] [phone] Mar, [facility] [place] [id number] [place] [id number] Mar, Insomnia, unspecified type G47.00 [facility] [place] [id number] [place] [id number] Mar, [facility] [place] [id number] [place] [address] [id number] Feb, Insomnia, unspecified type G47.00 [facility] [place] [id number] [place] [id number] Feb, Lumbago with sciatica, left side M54.42 and Anxiety F41.9 [facility] [address] [id number] [place] [id number] Feb, [facility] [address] [id number] [place] [address] [id number] Feb, RLS (restless legs syndrome) G25.81 ; Lumbago with sciatica, left side M54.42 ; Overactive bladder N32.81 and Anxiety F41.9 [facility] [address] [id number] [place] [address] [id number] Jan, Overactive bladder N32.81 and Moderate persistent asthma without complication J45.40 [facility] [address] [id number] [place] [id number] Jan, Lumbago with sciatica, left side M54.42 and Insomnia, unspecified type G47.00 [facility] [id number] [place] [address] [phone] Jan, RLS (restless legs syndrome) G25.81 [facility] [id number] [place] [address] [id number] Dec, Overactive bladder N32.81 and Other chronic pain G89.29 [facility] [address] [id number] [place] [address] [id number] Dec, Lumbago with sciatica, left side M54.42 ; Insomnia, unspecified type G47.00 and RLS (restless legs syndrome) G25.81 [facility] [address] [id number] [place] [id number] Nov, Overactive bladder N32.81 [facility] [address] [id number] [place] [id number] Nov, [facility] [address] [id number] [place] [id number] Nov, Lumbago with sciatica, left side M54.42 ; Insomnia, unspecified type G47.00 and RLS (restless legs syndrome) G25.81 [facility] [address] [id number] [place] [id number] Nov, Constipation, unspecified constipation type K59.00 ; Lumbago with sciatica , left side M54.42 ; Insomnia, unspecified type G47.00 ; Bloating R14.0 and Encounter for immunization Z23 [facility] [place] [address] [facility] [address] [id number] [place] [id number] Oct, Dental examination Z01.20 [facility] [place] [address] [id number] [place] [id number] Oct, RLS (restless legs syndrome) G25.81 ; Lumbago with sciatica, left side M54.42 and Insomnia, unspecified type G47.00 [facility] [place] [address] [id number] [place] [id number] Sep, Moderate persistent asthma without complication J45.40 [facility] [place] [address] [facility] [address] [id number] OF [place] [id number] Sep, Dental examination Z01.20 [facility] [place] [id number] [place] [address] [id number] Sep, Lumbago with sciatica, left side M54.42 and Insomnia, unspecified type G47.00 [facility] [place] [id number] [place] [id number] Sep, RLS (restless legs syndrome) G25.81 [facility] [address]00565100[place], [place] [phone][address] Aug, [facility] [place] [id number] [place] [id number] Aug, [facility] [place] [address] [place], [place] [address] [id number] [place] [address] Aug Insomnia, unspecified type G47.00 [facility] [place] [address] [facility] [address] [id number] [place] [id number] Aug, Dental examination Z01.20 [facility] [place] [address] [id number] [place] [id number] Aug, Vaginal discharge N89.8 [facility] [place] [id number] [place] [id number] Aug, RLS (restless legs syndrome) G25.81 [facility] [place] [address] [facility] [address] [id number] [place] [id number] Aug, Dental examination Z01.20 [facility] [place] [address] [facility] [address] [id number] [place] [id number] Jul, Dental examination Z01.20 [facility] [place] [address] [id number] [place] [id number] Jul, Lumbago with sciatica, left side M54.42 ; RLS (restless legs syndrome) G25.81 ; Moderate persistent asthma without complication J45.40 and Other specified hypothyroidism E03.8 [facility] [place] [address] [id number] [place] [id number] Jul, Insomnia, unspecified type G47.00 and Lumbago with sciatica, left side M54.42 [facility] [place] [address] [facility] [address] [id number] OF [place] [id number] Jul, Dental examination Z01.20 [facility] [place] [address] [facility] [address] [id number] OF [place] [id number] May, Dental examination Z01.20 and Dental caries K02.9 [facility] [place] [address] [id number] [place] [id number] May, [facility] [place] [address] [id number] [place] [id number] May, RLS (restless legs syndrome) G25.81 [facility] [place] [address] [id number] [place] [id number] May, Lumbago with sciatica, left side M54.42 ; Insomnia, unspecified type G47.00 and RLS (restless legs syndrome) G25.81 [facility] [place] [address] [id number] [place] [id number] Apr, Muscle spasms of both lower extremities M62.838 ; Constipation, unspecified constipation type K59.00 and Insomnia, unspecified type G47.00 [facility] [place] [address] [id number] [place] [id number] Apr, [facility] [place] [address] [id number] [place] [address] [id number] Apr, Anxiety F41.9 and Lumbago with sciatica, left side M54.42 [facility] [place] [address] [facility] [id number] [place] [id number] Mar, Encounter for dental examination and cleaning without abnormal findings Z01.20 [facility] [place] [address] [id number] [place] [id number] Mar, Muscle cramp, nocturnal R25.2 [facility] [place] [address] [id number] [place] [address] [id number] 14 Mar, 2016 RLS (restless legs syndrome) G25.81 ; Anxiety F41.9 ; Lumbago with sciatica, left side M54.42 ; Insomnia, unspecified type G47.00 and Muscle cramps R25.2 [facility] [id number] [place] [address] [phone] Mar, [facility] [address] [id number] [place] [address] [id number] Feb, [facility] [address] [id number] [place] [address] [id number] Feb, [facility] [address] [id number] [place] [address] [id number] Jan, [facility] [address] [id number] [place] [address] [id number] Jan, Moderate persistent asthma without complication J45.40 [facility] [place] [address] [id number] [place] [address] [id number] Jan, [facility] [address] [id number] [place] [address] [id number] Jan, [facility] [address] [id number] [place] [address] [id number] Jan, [facility] [address] [id number] [place] [address] [phone] Jan, [facility] [id number] [place] [address] [id number] Dec, [facility] [id number] [place] [address] [phone] Dec, [facility] [address] [id number] [place] [id number] Nov, [facility] [place] [address] [id number] [place] [id number] Nov, [facility] [address] [id number] [place] [id number] Nov, Dental examination Z01.20 [facility] [place] [address] [id number] [place] [id number] Nov, Bipolar depression F31.30 [facility] [address] [id number] [place] [id number] Nov, Lumbago with sciatica, left side M54.42 ; Allergic rhinitis, unspecified allergic rhinitis type J30.9 ; Bipolar depression F31.30 ; Moderate persistent asthma without complication J45.40 ; Encounter for immunization Z23 ; Abdominal spasms R10.9 and Benign essential hypertension I10 [facility] [place] [address] [id number] [place] [id number] Nov, [facility] [place] [address] [id number] [place] [id number] Oct, [facility] [place] [address] [id number] [place] [id number] Oct, [facility] [place] [address] [id number] [place], [place] [id number] Sep, [facility] [place] [address] [id number] [place] [id number] Sep, [facility] [place] [address] [id number] [place] [id number] Sep, [facility] [place] [address] [id number] [place] [address] Sep [facility] [place] [address] [id number] [place] [id number] Aug, [facility] [address] [id number], [place] [id number] Aug, Dental examination Z01.20 [facility] [address] [id number] [place] [id number] Aug, [address] [id number] [place] [phone] Aug, [facility] [id number] [place] [id number] Jul, Allergic rhinitis, unspecified allergic rhinitis type J30.9 ; RLS ( restless legs syndrome) G25.81 ; Lumbago with sciatica, left side M54.42 and Other chronic pain G89.29 [facility] [place] [id number] [place] [address] [id number] Jul, Allergic rhinitis, unspecified allergic rhinitis type J30.9 and RLS ( restless legs syndrome) G25.81 [facility] [id number] [place] [address] [id number] Jul, [facility] [id number] [place] [address] [id number] June, Hypo-osmolality and hyponatremia E87.1 and Benign essential hypertension I10 [facility] [id number] [place] [address] [id number] June, [facility] [id number] [place] [address] [id number] June, Moderate persistent asthma without complication J45.40 ; RLS (restless legs syndrome) G25.81 ; Benign essential hypertension I10 ; Anxiety F41.9 and Constipation, unspecified constipation type K59.[address] [id number] [place] [id number] June, Encounter for dental examination and cleaning without abnormal findings Z01.[address] [id number] [place] [id number] June, [facility] [id number] [place] [address] [id number] June, [facility] [id number] [place] [address] [id number] June, [facility] [id number] [place] [address] [id number] May, [place] [id number] [place] [address] [id number] May, [facility] [place] [address] [id number] [place] [id number] May, [facility] [place] [address] [id number] [place] [id number] May, [facility] [place] [address] [id number] [place] [id number] Apr, [facility] [place] [address] [id number] [place] [id number] Apr, Anxiety F41.9 [facility] [place] [address] [id number] [place] [address] [id number] Apr, [facility] [place] [address] [id number] [place] [id number] Mar, [facility] [place] [address] [id number] [place] [address] [id number] Mar, [facility] [place] [address] [id number] [place] [address] [id number] Mar, [facility] [place] [address] [id number] [place] [address] [id number] Mar, RLS (restless legs syndrome) G25.81 ; Anxiety F41.9 and Moderate persistent asthma without complication J45.40 [facility] [place] [address] [id number] [place] [address] [id number] Mar, [facility] [place] [address] [id number] [place] [id number] Mar, [facility] [place] [address] [id number] [place], [place] [id number] Feb, [facility] [place] [address] [id number] [place], [place] [id number] Feb, [facility] [place] [address] [id number] [place] [id number] Feb, [facility] [place] [address] [facility] [id number] [place] [id number] Feb, Encounter for dental examination Z01.20 [facility] [place] [address] [id number] [place], [place] [id number] Feb, [facility] [place] [address] [id number] [place] [address] [id number] Jan, [facility] [place] [address] [id number] [place] [id number] Jan, Benign essential hypertension I10 [facility] [place] [id number] [place] [id number] Jan, RLS (restless legs syndrome) G25.81 and Gastroesophageal reflux disease, esophagitis presence not specified K21.9 [facility] [place] [id number] [place], [place] [id number] Jan, [facility] [place] [id number] [place] [id number] Jan, [facility] [place] [id number] [place] [id number] Dec, Anxiety F41.9 ; Benign essential hypertension I10 and RLS (restless legs syndrome) G25.81 [facility] [place] [id number] [place] [id number] Dec, RLS (restless legs syndrome) G25.81 ; Esophageal reflux 530.81 and Anxiety F41.9 [facility] [place] [address] [id number] OF [place], [place] [id number] Dec, [facility] [place] [id number] [place], [place] [id number] Nov, Anxiety F41.9 [facility] [place] [id number] [place], [place] [id number] Nov, Anxiety F41.9 ; Encounter for immunization Z23 ; Benign essential hypertension I10 ; RLS (restless legs syndrome) G25.81 and Rhinitis J31.0 [facility] [address] [facility] [id number], [place] [phone]- 7536 Nov, [facility] [place] [address] [id number] [place] [id number] Nov, [facility] [address] [address] [id number] OF [place] [id number] Nov, [facility] [place] [address] [id number] [place] [phone] Nov, [address] [id number] [place] [phone] Nov, [facility] [place] [address] [facility] [id number] [place] [phone] Oct, [facility] [place] [address] [facility] [id number] [phone] Oct, [facility] [place] [id number] [place] [id number] Oct, [facility] [place] [id number] [place] [id number] Oct, Esophageal reflux 530.81 ; Asthma, unspecified, unspecified status 493.90 and Essential hypertension, benign 401.1 [facility] [place] [address] [id number] [place], [place] [id number] Oct, [facility] [place] [id number] [place] [id number] Oct, [facility] [place] [id number] [place] [id number] Oct, [facility] [place] [address] [id number] [place] [id number] Sep, [facility] [place] [id number] [place] [address] [id number] Sep, Esophageal reflux 530.81 ; Insomnia 780.52 and Essential hypertension, benign 401.1 [facility] [place] [id number] [place] [id number] Sep, [facility] [place] [address] [id number] [place] [id number] Sep, [facility] [place] [address] [id number] [place] [id number] Sep, [facility] [place] [address] [id number] [place] [id number] Sep, [facility] [place] [id number] [place] [id number] Sep, [facility] [place] [address] [id number] [place] [id number] Sep, [facility] [place] [id number] [place] [id number] Sep, [facility] [place] [address] [facility] [id number] [place] [id number] Sep, Essential hypertension, benign 401.1 ; Hyponatremia 276.1 and 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 [facility] [place] [address] [id number] [place] [id number] Sep, [facility] [place] [address] [id number] [place] [id number] Aug, [facility] [place] [address] [id number] [place] [id number] Aug, [facility] [place] [id number] [place] [address] [id number] Jul, [facility] [place] [address] [id number] [place] [id number] Jul, [facility] [place] [id number] [place] [address] [id number] Jul, [facility] [place] [address] [id number] [place] [address] [id number] Jul, [facility] [place] [id number] [place] [id number] Jul, [facility] [place] [id number] [place] [address] [id number] Jul, Insomnia 780.52 [facility] [place] [id number] [place] [id number] June, Muscle stiffness 728.9 and Insomnia 780.52 [facility] [place] [address] [id number] [place] [id number] June, [facility] [place] [address] [id number] [place] [id number] June, [facility] [address] [id number] [place] [id number] June, [facility] [address] [id number] [place] [id number] June, [facility] [address] [id number] [place] [id number] May, [facility] [address] [id number] [address] 14 May, 2014 [facility] [place] [facility] [address] [facility] [place] [id number] [address] May, [facility] [address] [facility] [id number] [place] [id number] Apr, [facility] [place] [facility] [address] [facility] [place] [id number][place] [address] Apr, [facility] [address] [id number] [place] [id number] Apr, [facility] [place] [facility] [address] [facility] [place] [id number], [place] [address] Apr, [facility] [place] [facility] [id number] [place] [address] Apr, [facility] [place] [facility] [id number], [place] [address] Apr, [facility] [id number] [place] [id number] Apr, [facility] [place] [facility] [id number], [place] [address] Apr, [facility] [id number] [place] [id number] Mar, [facility] [place] [facility] [id number], [place] [address] Mar, [facility] [address] [id number] [place] [id number] Mar, 2014 [facility] [place] [facility] [id number], [place] [address] Mar, 2014 [facility] [address] [facility] [id number] [place] [id number] Mar, [facility] [place] [facility] [id number], [place] [address] Mar, [facility] [place] [facility] [address] [id number], [place] [address] Mar, [facility] [address] [id number] [place] [id number] Feb, [facility] [place] [facility] [address] [facility] [place] [id number][place] [address] Feb, [facility] [address] [id number] [place] [id number] Feb, [facility] [address] [id number] [place] [id number] Feb, [facility] [address] [id number] [place] [id number] Feb, [facility] [place] [facility] [address] [facility] [place] [id number] [place] [address] Feb, [facility] [place] [facility] [address] [facility] [place] [id number], [place] [address] Feb, [facility] [address] [facility] [place] [id number], [place] [address] Feb, [facility] [address] [facility] [id number] [place] [id number] Feb, [facility] [place] [facility] [address] [facility] [place] [id number], [place] [address] Feb, [facility] [address] [facility] [id number] [place] [id number] Feb, [facility] [place] [facility] [address] [facility] [place] [id number], [place] [address] Feb, [facility] [place] [facility] [address] [facility] [place] [id number], [place] [address] Jan, [facility] [address] [facility] [id number] [place] [id number] Jan, [facility] [place] [facility] [address] [facility] [place] [id number], [place] [address] Jan, [facility] [address] [facility] [id number] [place] [id number] Jan, [facility] [place] [facility] [address] [facility] [place] [id number], [place] [address] Jan, [facility] [address] [facility] [id number] [place] [id number] Jan, [facility] [address] [facility] [place] [id number], [place] [address] Jan, [facility] [address] [facility] [place] [id number], [place] [address] Jan, [facility] [address] [facility] [id number] [place] [id number] Jan, [facility] [address] [id number], [place] [address] Jan, [facility] [address] [id number], [place] [address] June, IMMUNIZATIONS No Known Immunizations SOCIAL HISTORY Never Assessed REASON FOR VISIT med change PLAN OF CARE VITAL SIGNS MEDICATIONS Medication Instructions Dosage Frequency Start Date End Date Duration Status Ambien 10 MG Orally Once a day. Must last one month 1 Tablet Apr, 0 days Active RESULTS No Results PROCEDURES No Known [...] Surgical History Esophagus stretched 2017 Hospitalization History [facility] for hyponatremia, change in mental status, angioedema 09/2014
--- OUTSIDE RECORDS SUMMARY | 2017-08-27 16:22 | XMS REPORT ---
Author Author AIMEE LING Organization [employer] Address Unknown Phone Unavailable Care Team Providers Care Telephone Lineman Name Role Phone AIMEE LING CP Unavailable [...] Instructions Start Date End Date Status Dosage Gabapentin [facility] [address]-37 800 MG Orally Once a day at bedtime Nov 22, 2015 1 tablet Gabapentin [facility] 66311273416 300 MG Orally 1 tab in am and 1 tab at midday 1 Tablet Results No Known Results Summary Purpose [employer] Submission
--- OUTSIDE RECORDS SUMMARY | 2017-08-27 16:22 | XMS REPORT ---
Author Author AIMEE LING [facility] [employer] Address Unknown Phone Unavailable Care Team Providers Care Backfiller Name Role Phone AIMEE LING CP Unavailable Allergies, Adverse Reactions, Alerts Substance Reaction Event Type Lyrica hives Drug Allergy Advair Diskus facial swelling Drug Allergy Problems Problem Type Condition Code [...] Moderate persistent asthma without complication J45.40 Active Assessment Other chronic pain G89.29 Active Assessment Allergic rhinitis, unspecified allergic rhinitis type J30.9 Active Problem Bipolar disorder, unspecified 296.80 Active Assessment Lumbago with sciatica, left side M54.42 Active Problem Insomnia 780.52 Active Assessment RLS (restless legs syndrome) G25.81 Active Problem 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 Medications Medication Code System Code Instructions Start Date End Date Status Dosage Gabapentin [facility] [address]-94 300 MG Orally 1 tab in am and midday, 3 tabs at hs Mar 04, 2014 1-3 Tablet Imdur [facility] [address]-87 30 MG Orally Once a day Oct 08, 2014 1 tablet HydrOXYzine HCl [facility] NAMED [facility] 10273208378 25 MG Orally 3 times a day 1 tablet as needed MiraLax [facility]AMED [facility] [address]-97 17 gram/dose Orally Once a day April 29, 2014 1 packet mixed with 8 ounces of fluid Levothyroxine Sodium [facility] NAMED [facility] 86524422202 50 MCG Orally Once a day 1 tablet Singulair [facility] NAMED [facility] 18733092197 10 MG Orally Once a day 1 tablet in the evening Lisinopril-Hydrochlorothiazide [facility] NAMED [facility] 26472271020 20-12.5 MG Orally Once a day 1 tablet Zolpidem Tartrate [facility]AM[facility] [address]-47 10 MG Orally Once a day must last 1 m 1 tablet at bedtime as needed Symbicort [facility]AM[facility] [address]-48 80-4.5 MCG/ACT Inhalation Twice a day July 05, 2015 2 puffs Lamictal [facility] [address]-32 100 MG Orally Once a day Sep 24, 2014 1 tablet Ibuprofen [facility] NAMED [facility] 59667137943 800 MG Orally Three times a day as needed 1 tablet Zyrtec Allergy [facility]AM[facility] [address]-73 10 mg Orally Once a day May 17, 2015 1 tablet as needed Patanol [facility] [address]-25 0.1 % Ophthalmic Twice a day August 02, 2015 1 drop into affected eye Tramadol HCl [facility] [address]-70 50 mg Orally 2 times a day August 11, 2015 1 tablet as needed Zyprexa [facility]AM[facility] [address]-87 20 mg Orally Once a day Jan 29, 2014 1 tablet Clonazepam [facility]AM[facility] [address]-00 0.5 MG Orally Once a day at HS, PRN for RLS. Must last one month August 04, 2014 1 tablet Protonix [facility] [address]-06 40 MG Orally Once a day 1 tablet Premarin [facility]AM[facility] 56072515611 0.9 MG Orally Once a day 1 tablet ProAir HFA [facility]AM[facility] [address]-70 108 (90 Base) MCG/ACT Inhalation 4 times a day for wheezing or SOB Oct 21, 2014 2 puffs as needed Flonase [facility] [address]-04 50 MCG/ACT Nasally 2 times a day Nov 30, 2014 2 spray in each nostril Procedures Procedure Coding System Code Date Office Visit, Est Pt., Level 3 CPT-4 43478 August 11, 2015 Vital Signs Date/Time: August 11, 2015 Cardiac Monitoring Heart Rate 82 bpm Weight 180.4 lbs Height 63 in Blood Pressure Diastolic 74 mmHg Blood Pressure Systolic 140 mmHg Results No Known Results Summary Purpose eClinicalWorks Submission
--- OUTSIDE RECORDS SUMMARY | 2017-08-27 16:22 | XMS REPORT ---
Author Author AIMEE LING [facility] Address [address] [place] [address] Care Team Providers Care Gymnastic Teacher Name Role Phone AIMEE LING Unavailable PROBLEMS Type Condition ICD9-CM Code ZHL41-QU Code Onset Dates Condition Status SNOMED Code Problem Allergic rhinitis, unspecified allergic rhinitis type J30.9 Active 77489243 Problem Bipolar depression F31.30 Active 36694497 Problem Lumbago with sciatica, left side M54.42 Active 403789760 Problem Other chronic pain G89.29 Active 96363343 Problem Overactive bladder N32.81 Active 093008334 Problem Insomnia, unspecified type G47.00 Active 678267151 Problem Abdominal spasms R10.9 Active 45726061 Problem Other specified hypothyroidism E03.8 Active 83942972 Problem Muscle spasms of both lower extremities M62.838 Active 056307567 Problem 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 56914091 Problem Hyponatremia 276.1 Active 36468051 Problem Insomnia 780.52 Active 576162679 Problem Anxiety F41.9 Active 71786723 Problem Gastroesophageal reflux disease, esophagitis presence not specified K21.9 Active 200248703 Problem RLS (restless legs syndrome) G25.81 Active 92907207 Problem Moderate persistent asthma without complication J45.40 Active 223063329 Problem Benign essential hypertension I10 Active 5767433 Problem Constipation, unspecified constipation type K59.00 Active 19841499 ALLERGIES No Information ENCOUNTERS Encounter Location Date Diagnosis [facility] [address] [id number] [place] [id number] Aug, [facility] [address] [id number] [place] [id number] Aug, [facility] [place] [address] [id number] [place] [id number] Jul, [facility] [place] [id number], [place] [id number] Jul, Back spasm M62.830 [facility] [place] [address] [id number], [place] [id number] Jul, Back spasm M62.830 and Anxiety F41.9 [facility] [address] [id number][place] [id number] June, Insomnia, unspecified type G47.00 ; Overactive bladder N32.81 and Back spasm M62.830 [facility] [id number], [place] [id number] June, Anxiety F41.9 and Lumbago with sciatica, left side M54.42 [facility] [place] [id number] [place] [id number] May, Anxiety F41.9 and Lumbago with sciatica, left side M54.42 [facility] [address] [id number], [place] [id number] Apr, Dental examination Z01.20 [facility] [address] [id number], [place] [id number] Apr, [facility] [address] [id number], [place] [id number] Apr, RLS (restless legs syndrome) G25.81 ; Lumbago with sciatica, left side M54.42 and Anxiety F41.9 [facility] [place] [address] [id number], [place] [id number] Mar, [facility] [id number], [place] [id number] Mar, Insomnia, unspecified type G47.00 [facility] [place] [address] [id number], [place] [id number] Mar, Insomnia, unspecified type G47.00 and RLS (restless legs syndrome) G25.[address] [facility] [address] [id number] [place] [id number] Mar, [facility] [address] [id number] [place] [id number] Mar, Dental examination Z01.20 [facility] [address] [id number] [address] Mar, [facility] [id number] [place] [address] [id number] Mar, Lumbago with sciatica, left side M54.42 and Anxiety F41.9 [facility] [id number] [place] [address] Mar, [facility] [id number] [place] [address] [id number] Mar, Insomnia, unspecified type G47.00 [facility] [id number] [place] [address] [id number] Mar, [facility] [id number] [place] [address] [id number] Feb, Insomnia, unspecified type G47.00 [facility] [id number] [place] [address] [id number] Feb, Lumbago with sciatica, left side M54.42 and Anxiety F41.9 [facility] [id number] [place] [address] [id number] Feb, [facility] [id number] [place] [address] [id number] Feb, RLS (restless legs syndrome) G25.81 ; Lumbago with sciatica, left side M54.42 ; Overactive bladder N32.81 and Anxiety F41.9 [facility] [id number], [place] [id number] Jan, Overactive bladder N32.81 and Moderate persistent asthma without complication J45.40 [facility] [place] [id number] [place] [address] [id number] Jan, Lumbago with sciatica, left side M54.42 and Insomnia, unspecified type G47.00 [facility] [id number] [place] [address] [id number] Jan, RLS (restless legs syndrome) G25.81 [facility] [id number], [place] [id number] Dec, Overactive bladder N32.81 and Other chronic pain G89.29 [facility] [id number] [place] [address] [id number] Dec, Lumbago with sciatica, left side M54.42 ; Insomnia, unspecified type G47.00 and RLS (restless legs syndrome) G25.81 [facility] [id number] [place] [address] [id number] Nov, Overactive bladder N32.81 [facility] [id number] [place] [address] [id number] Nov, [facility] [id number] [place] [address] [id number] Nov, Lumbago with sciatica, left side M54.42 ; Insomnia, unspecified type G47.00 and RLS (restless legs syndrome) G25.81 [facility] [id number] [place] [address] [id number] Nov, Constipation, unspecified constipation type K59.00 ; Lumbago with sciatica , left side M54.42 ; Insomnia, unspecified type G47.00 ; Bloating R14.0 and Encounter for immunization Z23 [address] [id number], [place] [id number] Oct, Dental examination Z01.20 [address] [place] [address] [id number] Oct, RLS (restless legs syndrome) G25.81 ; Lumbago with sciatica, left side M54.42 and Insomnia, unspecified type G47.00 [address] [place] [address] [id number] Sep, Moderate persistent asthma without complication J45.[id number] [place] [address] [id number] Sep, Dental examination Z01.20 [address] [place] [address] [id number] Sep, Lumbago with sciatica, left side M54.42 and Insomnia, unspecified type G47.00 [facility] [id number], [place] [id number] Sep, RLS (restless legs syndrome) G25.81 [facility] [address] [id number], [place] [address] Aug, [facility] [id number], [place] [id number] Aug, [facility] [address] [place], [place] [address] [id number] [place] [address] Aug Insomnia, unspecified type G47.[address] [facility] [address] [facility] [facility] [id number], [place] [id number] Aug, Dental examination Z01.20 [facility] [id number], [place] [id number] Aug, Vaginal discharge N89.8 [facility] [place] [id number], [place] [id number] Aug, RLS (restless legs syndrome) G25.[address] [facility] [facility] [facility] [facility] [id number], [place] [id number] Aug, Dental examination Z01.[address] [facility] [address] [facility] [facility] [id number], [place] 814622238 Jul, Dental examination Z01.20 [facility] [id number], [place] [id number] Jul, Lumbago with sciatica, left side M54.42 ; RLS (restless legs syndrome) G25.81 ; Moderate persistent asthma without complication J45.40 and Other specified hypothyroidism E03.8 [facility] [id number], [place] [id number] Jul, Insomnia, unspecified type G47.00 and Lumbago with sciatica, left side M54.[address] [facility] [address] [facility] [facility] [facility] [id number], [place] [id number] Jul, Dental examination Z01.[address] [facility] [address] [id number], [place] [id number] May, Dental examination Z01.20 and Dental caries K02.9 [facility] [address]00565100[place], [place] [id number] May, [facility] [address]00565100[place], [place] [id number] May, RLS (restless legs syndrome) G25.81 [address]00565100[place], [place] [id number] May, Lumbago with sciatica, left side M54.42 ; Insomnia, unspecified type G47.00 and RLS (restless legs syndrome) G25.81 [id number] [place] [address] [id number] Apr, Muscle spasms of both lower extremities M62.838 ; Constipation, unspecified constipation type K59.00 and Insomnia, unspecified type G47.00 [address]00565100[place], [place] [id number] Apr, [id number] [place] [address] [id number] Apr, Anxiety F41.9 and Lumbago with sciatica, left side M54.[address] [id number], [place] [id number] Mar, Encounter for dental examination and cleaning without abnormal findings Z01.20 [address]00565100[place], [place] [id number] Mar, Muscle cramp, nocturnal R25.2 [facility] [address] [place] [address] [id number] Mar, RLS (restless legs syndrome) G25.81 ; Anxiety F41.9 ; Lumbago with sciatica, left side M54.42 ; Insomnia, unspecified type G47.00 and Muscle cramps R25.2 [facility] [address]00565100[place], [place] [address] Mar, [facility] [address] [id number], [place] [id number] Feb, [facility] [address] [id number], [place] [id number] Feb, [facility] [address] [id number], [place] [id number] Jan, [facility] [address] [id number], [place] [id number] Jan, Moderate persistent asthma without complication J45.40 [facility] [address] [id number], [place] [id number] Jan, [facility] [address] [id number] [place] [id number] Jan, [facility] [address] [id number], [place] [id number] Jan, [facility] [address] [id number], [place] [id number] Jan, [facility] [place] [id number], [place] [id number] Dec, [facility] [address] [facility] [id number], [place] [address] Dec, [facility] [place] [address] [id number], [place] [id number] Nov, [facility] [place] [address] [id number], [place] [id number] Nov, [facility] [address] [facility] [id number], [place] [id number] Nov, Dental examination Z01.20 [facility] [address] [id number], [place] [id number] Nov, Bipolar depression F31.30 [facility] [place] [address] [id number], [place] [id number] Nov, Lumbago with sciatica, left side M54.42 ; Allergic rhinitis, unspecified allergic rhinitis type J30.9 ; Bipolar depression F31.30 ; Moderate persistent asthma without complication J45.40 ; Encounter for immunization Z23 ; Abdominal spasms R10.9 and Benign essential hypertension I10 [facility] [place] [address] [id number], [place] [id number] Nov, [facility] [address] [id number] [place] [id number] Oct, [facility] [address] [id number], [place] [id number] Oct, [facility] [place] [address] [id number], [place] [id number] Sep, [facility] [address] [id number], [place] [id number] Sep, [facility] [place] [address] [id number], [place] [id number] Sep, [id number] [place] [address] Sep [facility] [address] [id number], [place] [id number] Aug, [facility] [address] [id number], [place] [id number] Aug, Dental examination Z01.20 [facility] [address] [id number], [place] [id number] Aug, [address]00565100[place] [id number] Aug, [facility] [address] [id number], [place] [id number] Jul, Allergic rhinitis, unspecified allergic rhinitis type J30.9 ; RLS ( restless legs syndrome) G25.81 ; Lumbago with sciatica, left side M54.42 and Other chronic pain G89.29 [facility] [address] [id number], [place] [id number] Jul, Allergic rhinitis, unspecified allergic rhinitis type J30.9 and RLS ( restless legs syndrome) G25.81 [facility] [address] [id number], [place] [id number] Jul, [facility] [address] [id number], [place] [id number] June, Hypo-osmolality and hyponatremia E87.1 and Benign essential hypertension I10 [facility] [address] [id number] [place] [address] [id number] June, [facility] [address] [id number] [place] [address] [id number] June, Moderate persistent asthma without complication J45.40 ; RLS (restless legs syndrome) G25.81 ; Benign essential hypertension I10 ; Anxiety F41.9 and Constipation, unspecified constipation type K59.00 [facility] [place] [address] [facility] [id number] [place] [address] [id number] June, Encounter for dental examination and cleaning without abnormal findings Z01.20 [facility] [address] [facility] [id number] [place] [address] [id number] June, [facility] [address] [id number] [place] [address] [id number] June, [facility] [address] [id number] [place] [address] [id number] June, [facility] [address] [id number] [place] [address] [id number] May, [facility] [address] [id number] [place] [address] [id number] May, [facility] [address] [id number] [place] [address] [id number] May, [facility] [address] [id number] [place] [address] [id number] May, [facility] [address] [id number] [place] [address] [id number] Apr, [facility] [address] [id number] [place] [address] [id number] Apr, Anxiety F41.9 [facility] [address] [id number] [place] [id number] Apr, [facility] [address] [id number] [place] [address] [id number] Mar, [facility] [address] [id number] [place] [address] [id number] Mar, [facility] [address] [id number] [place] [address] [id number] Mar, [facility] [address] [id number], [place] [id number] Mar, RLS (restless legs syndrome) G25.81 ; Anxiety F41.9 and Moderate persistent asthma without complication J45.40 [facility] [place] [address] [id number] [place] [address] [id number] Mar, [facility] [place] [address] [id number] [place] [address] [id number] Mar, [facility] [place] [address] [id number] [place] [address] [id number] Feb, [facility] [address] [id number] [place] [address] [id number] Feb, [facility] [id number] [place] [address] [id number] Feb, [address]00565100[place] [id number] Feb, Encounter for dental examination Z01.20 [facility] [address] [id number] [place] [address] [id number] Feb, [facility] [id number] [place] [address] [id number] Jan, [facility] [id number] [place] [address] [id number] Jan, Benign essential hypertension I10 [facility] [id number] [place] [address] [id number] Jan, RLS (restless legs syndrome) G25.81 and Gastroesophageal reflux disease, esophagitis presence not specified K21.9 [facility] [address] [id number] [place] [address] [id number] Jan, [facility] [address] [id number] [place] [address] [id number] Jan, [facility] [id number] [place] [address] [id number] Dec, Anxiety F41.9 ; Benign essential hypertension I10 and RLS (restless legs syndrome) G25.81 [facility] [id number] [place] [address] [id number] Dec, RLS (restless legs syndrome) G25.81 ; Esophageal reflux 530.81 and Anxiety F41.9 [facility] [address] [id number], [place] [id number] Dec, [facility] [place] [id number], [place] [id number] Nov, Anxiety F41.9 [facility] [id number] [place] [address] [id number] Nov, Anxiety F41.9 ; Encounter for immunization Z23 ; Benign essential hypertension I10 ; RLS (restless legs syndrome) G25.81 and Rhinitis J31.0 [facility] [address]00565100[place], [place] [address] Nov, [facility] [id number], [place] [id number] Nov, [facility] [address] [facility] [address] [id number], [place] [id number] Nov, [facility] [id number] [place] [address] [id number] Nov, [address] [place] [address] [id number] Nov, [facility] [place] [address] [facility] [id number], [place] [id number] Oct, [facility] [address]00565100[place], [place] [id number] Oct, [facility] [place] [id number], [place] [id number] Oct, [facility] [address] [id number], [place] [id number] Oct, Esophageal reflux 530.81 ; Asthma, unspecified, unspecified status 493.90 and Essential hypertension, benign 401.1 [facility] [id number], [place] [id number] Oct, [address] [place] [address] [id number] Oct, [facility] [address] [id number] [place] [id number] Oct, [facility] [address] [id number] [place] [id number] Sep, [facility] [address] [id number] [place] [id number] Sep, Esophageal reflux 530.81 ; Insomnia 780.52 and Essential hypertension, benign 401.1 [facility] [address] [id number] [place] [id number] Sep, [facility] [address] [id number] [place] [id number] Sep, [facility] [address] [id number] [place] [id number] Sep, [facility] [address] [id number] [place] [id number] Sep, [facility] [address] [id number] [place] [id number] Sep, [facility] [address] [id number] [place] [id number] Sep, [facility] [address] [id number] [place] [id number] Sep, [facility] [address] [id number] [place] [id number] Sep, Essential hypertension, benign 401.1 ; Hyponatremia 276.1 and 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 [facility] [address] [id number], [place] [id number] Sep, [facility] [address] [id number], [place] [id number] Aug, [facility] [address] [id number] [place] [id number] Aug, [facility] [id number] [place] [address] [id number] Jul, [facility] [address] [id number] [place] [id number] Jul, [facility] [address] [id number], [place] [id number] Jul, [facility] [address] [id number], [place] [id number] Jul, [facility] [address] [id number], [place] [id number] Jul, [facility] [address] [id number], [place] [id number] Jul, Insomnia 780.52 [facility] [address] [id number], [place] [id number] June, Muscle stiffness 728.9 and Insomnia 780.52 [facility] [address] [id number][place] [id number] June, [facility] [address] [id number][place] [id number] June, [facility] [address] [id number][place] [id number] June, [facility] [address] [id number][place] [id number] June, [facility] [address] [id number][place] [id number] May, [facility] [id number], [place] [address] May, [facility] [id number] [place] [address] May, [facility] [address] [id number], [place] [id number] Apr, [facility] [id number], [place] [address] Apr, [facility] [address] [facility] [id number][place] [id number] Apr, [facility] [id number] [place] [address] Apr, [facility] [address] [id number], [place] [address] Apr, [facility] [id number] [place] [address] Apr, [facility] [address] [id number] [place] [id number] Apr, [facility] [address] [facility] [id number], [place] [address] Apr, [facility] [address] [facility] [id number] [place] [id number] Mar, [facility] [id number], [place] [address] Mar, [facility] [address] [id number] [place] [id number] Mar, [facility] [id number], [place] [address] Mar, [facility] [id number], [place] [id number] Mar, [facility] [id number], [place] [address] Mar, [facility] [id number], [place] [address] Mar, [facility] [id number] [place] [id number] Feb, [facility] [id number], [place] [address] Feb, [facility] [address] [id number][place] [id number] Feb, [facility] [address] [facility] [id number][place] [id number] Feb, [facility] [address] [facility] [id number], [place] [id number] Feb, [facility] [id number], [place] [address] Feb, [facility] [address] [id number] [address] Feb, [facility] [id number], [place] [address] Feb, [facility] [address] [id number][place] [id number] Feb, [facility] [address], [place] [address] Feb, [facility] [id number] [id number] Feb, [facility] [address], [place] [address] Feb, [facility] [address], [place] [address] Jan, [facility] [id number] [id number] Jan, [facility] [address], [place] [address] Jan, [facility] [id number] [id number] Jan, [facility] [address], [place] [address] Jan, [facility] [id number] [id number] Jan, [facility] [address], [place] [address] Jan, [facility] [address], [place] [address] Jan, [facility] [id number] [id number] Jan, [facility] [address], [place] [address] Jan, [facility] [address], [place] [address] June, IMMUNIZATIONS No Known Immunizations SOCIAL HISTORY Never Assessed REASON FOR VISIT Controlled/Refill Requests PLAN OF CARE VITAL SIGNS MEDICATIONS Unknown [...]
--- OUTSIDE RECORDS SUMMARY | 2017-08-27 16:22 | XMS REPORT ---
Author Author IAMEE LING Organization [employer] Address Unknown Phone Unavailable Care Team Providers Care Software Quality Analyst Name Role Phone AIMEE LING CP Unavailable [...] Instructions Start Date End Date Status Dosage Zyprexa [facility] [address]-04 20 mg Orally Once a day Jan 29, 2014 1 tablet Tramadol HCl [facility] [address]-91 50 mg Orally 2 times a day August 11, 2015 1 tablet as needed Zolpidem Tartrate [facility] [address]-00 10 MG Orally Once a day must last 1 m 1 tablet at bedtime as needed Results No Known Results Summary Purpose [employer] Submission
--- OUTSIDE RECORDS SUMMARY | 2017-08-27 16:22 | XMS REPORT ---
Author Author AIMEE LING Organization [employer] Address Unknown Phone Unavailable Care Team Providers Care Teradata Architect Name Role Phone AIMEE LING CP Unavailable Allergies No Known Allergies Problems Problem Type Condition Code Onset Dates Condition Status Problem Restless legs syndrome [RLS] 333.94 Active Problem Essential hypertension, benign 401.1 Active Problem Unspecified constipation 564.00 Active Problem Contact dermatitis and other eczema, due to unspecified cause 692.9 Active Problem 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 Problem Insomnia 780.52 Active Problem Hyponatremia 276.1 Active Problem Bipolar disorder, unspecified 296.80 Active Problem Asthma, unspecified, unspecified status 493.90 Active Problem Esophageal reflux 530.81 Active Problem Need for prophylactic vaccination and inoculation, Influenza V04.81 Active Medications No Known Medications Results No Known Results Summary Purpose [employer] Submission
--- OUTSIDE RECORDS SUMMARY | 2017-08-27 16:22 | XMS REPORT ---
Author Author AIMEE LING [facility] Address [address] [place] [address] Care Team Providers Care Director Of Sustainability Programs Name Role Phone AIMEE LING Unavailable PROBLEMS Type Condition ICD9-CM Code QPX37-OB Code Onset Dates Condition Status SNOMED Code Problem Encounter for dental examination and cleaning without abnormal findings Z01.20 Active 321614992 Problem Allergic rhinitis, unspecified allergic rhinitis type J30.9 Active 41232593 Problem Constipation, unspecified constipation type K59.00 Active 36567411 Problem Other specified hypothyroidism E03.8 Active 90450440 Problem Muscle spasms of both lower extremities M62.838 Active 709984702 Problem Bipolar depression F31.30 Active 31746398 Problem Lumbago with sciatica, left side M54.42 Active 905181767 Problem Insomnia, unspecified type G47.00 Active 121902735 Problem Abdominal spasms R10.9 Active 86797698 Problem Insomnia 780.52 Active 476337304 Problem 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 99138388 Problem Benign essential hypertension I10 Active 1972035 Problem Anxiety F41.9 Active 46025464 Problem Hyponatremia 276.1 Active 64341969 Problem Gastroesophageal reflux disease, esophagitis presence not specified K21.9 Active 043515664 Problem RLS (restless legs syndrome) G25.81 Active 43314255 Problem Moderate persistent asthma without complication J45.40 Active 922065655 ALLERGIES No Information SOCIAL HISTORY Never Assessed PLAN OF CARE VITAL SIGNS MEDICATIONS Medication Instructions Dosage Frequency Start Date End Date Duration Status Clonazepam 0.5 MG Orally Once a day at HS, PRN for RLS. Must last one month 1 tablet Jul, Active Tramadol HCl 50 mg Orally 2 times a day 1 tablet 12h Active RESULTS No Results PROCEDURES No Known procedures IMMUNIZATIONS No Known Immunizations MEDICAL (GENERAL) HISTORY Type Description Date Medical [...] 01/22/15 Surgical History Bilateral cataract surgery 01/26 Hospitalization History [facility] for hyponatremia, change in mental status, angioedema 09/2014
[2017-08-27 16:23] VITALS: BP 177/75
--- OUTSIDE RECORDS SUMMARY | 2017-08-27 16:23 | XMS REPORT ---
Author Author AIMEE LING [facility] Address [address] [place] [address] Care Team Providers Care Radio Aerial Installer Name Role Phone AIMEE LING Unavailable PROBLEMS Type Condition ICD9-CM Code [id number] Code Onset Dates Condition Status SNOMED Code Problem Allergic rhinitis, unspecified allergic rhinitis type J30.9 Active 73811980 Problem Bipolar depression F31.30 Active 37823525 Problem Lumbago with sciatica, left side M54.42 Active 876141960 Problem Other chronic pain G89.29 Active 52977841 Problem Overactive bladder N32.81 Active 045103676 Problem Insomnia, unspecified type G47.00 Active 835696108 Problem Abdominal spasms R10.9 Active 33537701 Problem Other specified hypothyroidism E03.8 Active 72371694 Problem Muscle spasms of both lower extremities M62.838 Active 349385043 Problem 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 84341422 Problem Hyponatremia 276.1 Active 90950138 Problem Insomnia 780.52 Active 578775857 Problem Anxiety F41.9 Active 72252832 Problem Gastroesophageal reflux disease, esophagitis presence not specified K21.9 Active 886877675 Problem RLS (restless legs syndrome) G25.81 Active 69009975 Problem Moderate persistent asthma without complication J45.40 Active 713285602 Problem Benign essential hypertension I10 Active 1079115 Problem Constipation, unspecified constipation type K59.00 Active 94677333 ALLERGIES No Information ENCOUNTERS Encounter Location Date Diagnosis [facility] [address] [id number] [place] [id number] Aug, [facility] [address] [id number] [place] [id number] Aug, [facility] [place] [address] [id number] [place] [id number] Jul, [facility] [place] [id number], [place] [id number] Jul, Back spasm M62.830 [facility] [place] [address] [id number], [place] [address]241227 Jul, Back spasm M62.830 and Anxiety F41.9 [facility] [address] [id number], [place] [id number] June, Insomnia, unspecified type G47.00 ; Overactive bladder N32.81 and Back spasm M62.830 [facility] [place] [id number], [place] [id number] June, Anxiety F41.9 and Lumbago with sciatica, left side M54.42 [facility] [place] [id number] [place] [address] [id number] May, Anxiety F41.9 and Lumbago with sciatica, left side M54.42 [facility] [address] [id number][place] [id number] Apr, Dental examination Z01.20 [facility] [address] [id number], [place] [id number] Apr, [facility] [place] [address] [id number], [place] [id number] Apr, RLS (restless legs syndrome) G25.81 ; Lumbago with sciatica, left side M54.42 and Anxiety F41.9 [facility] [place] [address] [id number][place] [id number] Mar, [facility] [id number], [place] [id number] Mar, Insomnia, unspecified type G47.00 [facility] [place] [address] [id number], [place] [id number] Mar, Insomnia, unspecified type G47.00 and RLS (restless legs syndrome) G25.[address] [facility] [address] [id number] [place] Prometheus EnergyNEOSHO [place] [id number] Mar, [facility] [address] [id number] [place] [id number] Mar, Dental examination Z01.20 [facility] [address] [id number] [address] Mar, [facility] [id number] [place] [address] [id number] Mar, Lumbago with sciatica, left side M54.42 and Anxiety F41.9 [facility] [id number] [place] [address] Mar, [facility] [id number] [place] [address] [id number] Mar, Insomnia, unspecified type G47.00 [facility] [id number] [place] [address] [id number] Mar, [facility] [id number] [place] [address] [id number] Feb, Insomnia, unspecified type G47.00 [facility] [id number] [place] [address] [id number] Feb, Lumbago with sciatica, left side M54.42 and Anxiety F41.9 [facility] [id number] [place] [address] [id number] Feb, [facility] [id number] [place] [address] [id number] Feb, RLS (restless legs syndrome) G25.81 ; Lumbago with sciatica, left side M54.42 ; Overactive bladder N32.81 and Anxiety F41.9 [facility] [id number], [place] [id number] Jan, Overactive bladder N32.81 and Moderate persistent asthma without complication J45.40 [facility] [place] [id number] [place] [address] [id number] Jan, Lumbago with sciatica, left side M54.42 and Insomnia, unspecified type G47.00 [facility] [id number] [place] [address] [id number] Jan, RLS (restless legs syndrome) G25.81 [facility] [id number], [place] [id number] Dec, Overactive bladder N32.81 and Other chronic pain G89.29 [facility] [id number] [place] [address] [id number] Dec, Lumbago with sciatica, left side M54.42 ; Insomnia, unspecified type G47.00 and RLS (restless legs syndrome) G25.81 [facility] [id number] [place] [address] [id number] Nov, Overactive bladder N32.81 [facility] [id number] [place] [address] [id number] Nov, [facility] [id number] [place] [address] [id number] Nov, Lumbago with sciatica, left side M54.42 ; Insomnia, unspecified type G47.00 and RLS (restless legs syndrome) G25.81 [facility] [id number] [place] [address] [id number] Nov, Constipation, unspecified constipation type K59.00 ; Lumbago with sciatica , left side M54.42 ; Insomnia, unspecified type G47.00 ; Bloating R14.0 and Encounter for immunization Z23 [address] [id number][place] [id number] Oct, Dental examination Z01.20 [address] [place] [address] [id number] Oct, RLS (restless legs syndrome) G25.81 ; Lumbago with sciatica, left side M54.42 and Insomnia, unspecified type G47.[address] [place] [address] [id number] Sep, Moderate persistent asthma without complication J45.[address] [id number] [place] [address] [id number] Sep, Dental examination Z01.20 [address] [place] [address] [id number] Sep, Lumbago with sciatica, left side M54.42 and Insomnia, unspecified type G47.00 [facility] [id number], [place] [id number] Sep, RLS (restless legs syndrome) G25.81 [facility] [address] [id number] [address] Aug, [facility] [id number], [place] [id number] Aug, [facility] [address] [place], [place] [address]E [id number] [place] [address] Aug Insomnia, unspecified type G47.00 [facility] [place] [address] [facility] [address] [id number], [place] [id number] Aug, Dental examination Z01.20 [facility] [place] [id number], [place] [id number] Aug, Vaginal discharge N89.8 [facility] [place] [id number], [place] [id number] Aug, RLS (restless legs syndrome) G25.81 [facility] [place] [address] [facility] [address] [id number], [place] [id number] Aug, Dental examination Z01.20 [facility] [place] [address] [facility] [address] [id number], [place] [id number] Jul, Dental examination Z01.20 [facility] [id number], [place] [id number] Jul, Lumbago with sciatica, left side M54.42 ; RLS (restless legs syndrome) G25.81 ; Moderate persistent asthma without complication J45.40 and Other specified hypothyroidism E03.8 [facility] [id number], [place] [id number] Jul, Insomnia, unspecified type G47.00 and Lumbago with sciatica, left side M54.42 [facility] [place] [address] [facility] [address] [id number][place] [id number] Jul, Dental examination Z01.[address] [facility] [address] [id number], [place] [id number] May, Dental examination Z01.20 and Dental caries K02.9 [facility] [address]00565100[place] [id number] May, [facility] [address]00565100[place] [id number] May, RLS (restless legs syndrome) G25.81 [address]00565100[place] [id number] May, Lumbago with sciatica, left side M54.42 ; Insomnia, unspecified type G47.00 and RLS (restless legs syndrome) G25.81 [id number] [place] [address] [id number] Apr, Muscle spasms of both lower extremities M62.838 ; Constipation, unspecified constipation type K59.00 and Insomnia, unspecified type G47.00 [address]00565100[place] [id number] Apr, [id number] [place] [address] [id number] Apr, Anxiety F41.9 and Lumbago with sciatica, left side M54.[address] [id number], [place] [id number] Mar, Encounter for dental examination and cleaning without abnormal findings Z01.[address]00565100[place] [id number] Mar, Muscle cramp, nocturnal R25.2 [facility] [address] [place] [address] [id number] Mar, RLS (restless legs syndrome) G25.81 ; Anxiety F41.9 ; Lumbago with sciatica, left side M54.42 ; Insomnia, unspecified type G47.00 and Muscle cramps R25.2 [facility] [address]00565100[place] [address] Mar, [facility] [address] [id number], [place] [id number] Feb, [facility] [place] [address] [id number], [place] [id number] Feb, [facility] [place] [address] [id number], [place] [id number] Jan, [facility] [place] [address] [id number], [place] [id number] Jan, Moderate persistent asthma without complication J45.40 [facility] [place] [address] [id number], [place] [id number] Jan, [facility] [place] [address] [id number] [place] [id number] Jan, [facility] [place] [address] [id number], [place] [id number] Jan, [facility] [place] [address] [id number], [place] [id number] Jan, [facility] [place] [id number], [place] [id number] Dec, [facility] [address] [facility] [id number] [address] Dec, [facility] [place] [address] [id number], [place] [id number] Nov, [facility] [place] [address] [id number], [place] [id number] Nov, [facility] [address] [facility] [address] [id number], [place] [id number] Nov, Dental examination Z01.20 [facility] [place] [address] [id number], [place] [id number] Nov, Bipolar depression F31.30 [facility] [place] [address] [id number], [place] [id number] Nov, Lumbago with sciatica, left side M54.42 ; Allergic rhinitis, unspecified allergic rhinitis type J30.9 ; Bipolar depression F31.30 ; Moderate persistent asthma without complication J45.40 ; Encounter for immunization Z23 ; Abdominal spasms R10.9 and Benign essential hypertension I10 [facility] [place] [address] [id number], [place] [id number] Nov, [facility] [place] [address] [id number] [place] [id number] Oct, [facility] [place] [address] [id number], [place] [id number] Oct, [facility] [place] [address] [id number], [place] [id number] Sep, [facility] [place] [address] [id number], [place] [id number] Sep, [facility] [place] [address] [id number], [place] [id number] Sep, [id number] [place] [address] Sep [facility] [address] [id number], [place] [id number] Aug, [facility] [address] [id number] [place] [id number] Aug, Dental examination Z01.20 [facility] [address] [id number], [place] [id number] Aug, [address]00565100[place] [id number] Aug, [facility] [address] [id number], [place] [id number] Jul, Allergic rhinitis, unspecified allergic rhinitis type J30.9 ; RLS ( restless legs syndrome) G25.81 ; Lumbago with sciatica, left side M54.42 and Other chronic pain G89.29 [facility] [address] [id number], [place] [id number] Jul, Allergic rhinitis, unspecified allergic rhinitis type J30.9 and RLS ( restless legs syndrome) G25.81 [facility] [address] [id number], [place] [id number] Jul, [facility] [address] [id number], [place] [id number] June, Hypo-osmolality and hyponatremia E87.1 and Benign essential hypertension I10 [facility] [address] [id number] [place] [address] [id number] June, [facility] [address] [id number] [place] [address] [id number] June, Moderate persistent asthma without complication J45.40 ; RLS (restless legs syndrome) G25.81 ; Benign essential hypertension I10 ; Anxiety F41.9 and Constipation, unspecified constipation type K59.00 [facility] [place] [address] [facility] [address] [id number] [place] [address] [id number] June, Encounter for dental examination and cleaning without abnormal findings Z01.20 [facility] [place] [address] [facility] [address] [id number] [place] [address] [id number] June, [facility] [place] [address] [id number] [place] [address] [id number] June, [facility] [place] [address] [id number] [place] [address] [id number] June, [facility] [place] [address] [id number] [place] [address] [id number] May, [facility] [place] [address] [id number] [place] [address] [id number] May, [facility] [place] [address] [id number] [place] [address] [id number] May, [facility] [place] [address] [id number] [place] [address] [id number] May, [facility] [place] [address] [id number] [place] [address] [id number] Apr, [facility] [address] [id number] [place] [address] [id number] Apr, Anxiety F41.9 [facility] [place] [address] [id number] [place] [id number] Apr, [facility] [address] [id number] [place] [address] [id number] Mar, [facility] [id number] [place] [address] [id number] Mar, [facility] [address] [id number] [place] [address] [id number] Mar, [facility] [address] [id number], [place] [id number] Mar, RLS (restless legs syndrome) G25.81 ; Anxiety F41.9 and Moderate persistent asthma without complication J45.40 [facility] [place] [address] [id number] [place] [address] [id number] Mar, [facility] [place] [address] [id number] [place] [address] [id number] Mar, [facility] [place] [address] [id number] [place] [address] [id number] Feb, [facility] [address] [id number] [place] [address] [id number] Feb, [facility] [id number] [place] [address] [id number] Feb, [address]00565100[place] [id number] Feb, Encounter for dental examination Z01.20 [facility] [address] [id number] [place] [address] [id number] Feb, [facility] [id number] [place] [address] [id number] Jan, [facility] [id number] [place] [address] [id number] Jan, Benign essential hypertension I10 [facility] [id number] [place] [address] [id number] Jan, RLS (restless legs syndrome) G25.81 and Gastroesophageal reflux disease, esophagitis presence not specified K21.9 [facility] [address] [id number] [place] [address] [id number] Jan, [facility] [address] [id number] [place] [address] [id number] Jan, [facility] [id number] [place] [address] [id number] Dec, Anxiety F41.9 ; Benign essential hypertension I10 and RLS (restless legs syndrome) G25.81 [facility] [id number] [place] [address] [id number] Dec, RLS (restless legs syndrome) G25.81 ; Esophageal reflux 530.81 and Anxiety F41.9 [facility] [address] [address] [id number], [place] [id number] Dec, [facility] [place] [id number], [place] [id number] Nov, Anxiety F41.9 [facility] [id number] [place] [address] [id number] Nov, Anxiety F41.9 ; Encounter for immunization Z23 ; Benign essential hypertension I10 ; RLS (restless legs syndrome) G25.81 and Rhinitis J31.0 [facility] [address]00565100[place] [address] Nov, [facility] [id number], [place] [id number] Nov, [facility] [place] [address] [facility] [address] [id number], [place] [id number] Nov, [facility] [id number] [place] [address] [id number] Nov, [address] [place] [address] [id number] Nov, [facility] [place] [address] [facility] [id number], [place] [id number] Oct, [facility] [address]00565100[place], [place] [id number] Oct, [facility] [place] [id number], [place] [id number] Oct, [facility] [address] [id number], [place] [id number] Oct, Esophageal reflux 530.81 ; Asthma, unspecified, unspecified status 493.90 and Essential hypertension, benign 401.1 [facility] [id number], [place] [id number] Oct, [address] [place] [address] [id number] Oct, [facility] [address] [id number] [place] [id number] Oct, [facility] [address] [id number] [place] [id number] Sep, [facility] [address] [id number] [place] [id number] Sep, Esophageal reflux 530.81 ; Insomnia 780.52 and Essential hypertension, benign 401.1 [facility] [address] [id number] [place] [id number] Sep, [facility] [address] [id number] [place] [id number] Sep, [facility] [address] [id number] [place] [id number] Sep, [facility] [address] [id number] [place] [id number] Sep, [facility] [address] [id number] [place] [id number] Sep, [facility] [address] [id number] [place] [id number] Sep, [facility] [address] [id number] [place] [id number] Sep, [facility] [address] [id number] [place] [id number] Sep, Essential hypertension, benign 401.1 ; Hyponatremia 276.1 and 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 [facility] [address] [id number], [place] [id number] Sep, [facility] [address] [id number], [place] [id number] Aug, [facility] [address] [id number] [place] [id number] Aug, [facility] [address] [id number] [place] [address] [id number] Jul, [facility] [place] [address] [id number] [place] [id number] Jul, [facility] [place] [address] [id number], [place] [id number] Jul, [facility] [address] [id number], [place] [id number] Jul, [facility] [address] [id number], [place] [id number] Jul, [facility] [address] [id number], [place] [id number] Jul, Insomnia 780.52 [facility] [address] [id number][place] [id number] June, Muscle stiffness 728.9 and Insomnia 780.52 [facility] [address] [id number][place] [id number] June, [facility] [address] [id number][place] [id number] June, [facility] [address] [id number][place] [id number] June, [facility] [address] [id number][place] [id number] June, [facility] [address] [id number][place] [id number] May, [facility] [id number] [address] May, [facility] [id number] [place] [address] May, [facility] [address] [id number], [place] [id number] Apr, [facility] [id number] [address] Apr, [facility] [address] [facility] [id number][place] [id number] Apr, [facility] [id number] [place] [address] Apr, [facility] [address] [id number] [address] Apr, [facility] [id number] [place] [address] Apr, [facility] [address] [id number] [place] [id number] Apr, [facility] [address] [facility] [id number] [place] [address] Apr, [facility] [address] [facility] [id number] [place] [id number] Mar, [facility] [address] [address] Mar, [facility] [address] [id number] [place] [id number] Mar, [facility] [address] [address] Mar, [facility] [id number][place] [id number] Mar, [facility] [address] [address] Mar, [facility] [address] [id number] [address] Mar, [facility] [id number] [place] [id number] Feb, [facility] [address] [address] Feb, [facility] [address] [id number] [id number] Feb, [facility] [address] [facility] [id number][place] [id number] Feb, [facility] [address] [facility] [id number][place] [id number] Feb, [facility] [address] [address] Feb, [facility] [id number] [address] Feb, [facility] [address] [address] Feb, [facility] [address] [id number] [place] [id number] Feb, [facility] [address] [address] Feb, [facility] [id number][place] [id number] Feb, [facility] [address] [address] Feb, [facility] [address] [address] Jan, [facility] [id number][place] [id number] Jan, [facility] [address] [address] Jan, [facility] [id number][place] [id number] Jan, [facility] [address] [address] Jan, [facility] [id number][place] [id number] Jan, [facility] [address] [address] Jan, [facility] [address] [address] Jan, [facility] [address] [id number][place] [id number] Jan, [facility] [address] [address] Jan, [facility] [id number] [address] June, IMMUNIZATIONS No Known Immunizations SOCIAL HISTORY Never Assessed REASON FOR VISIT RX-Ambien refill PLAN OF CARE VITAL SIGNS MEDICATIONS Medication Instructions Dosage Frequency Start Date End Date Duration Status Zolpidem Tartrate 10 mg Orally Once a [...]
--- OUTSIDE RECORDS SUMMARY | 2017-08-27 16:23 | XMS REPORT ---
Author Author AIMEE LING [facility] Address [address] [place] [address] Care Team Providers Care Automated Manufacturing Instructor Name Role Phone AIMEE LING Unavailable PROBLEMS Type Condition ICD9-CM Code EPW82-LA Code Onset Dates Condition Status SNOMED Code Problem Allergic rhinitis, unspecified allergic rhinitis type J30.9 Active 02459129 Problem Bipolar depression F31.30 Active 89793702 Problem Lumbago with sciatica, left side M54.42 Active 549595133 Problem Other chronic pain G89.29 Active 97120473 Problem Overactive bladder N32.81 Active 554860661 Problem Insomnia, unspecified type G47.00 Active 430988571 Problem Abdominal spasms R10.9 Active 17299303 Problem Other specified hypothyroidism E03.8 Active 50478014 Problem Muscle spasms of both lower extremities M62.838 Active 541120540 Problem 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 04683577 Problem Hyponatremia 276.1 Active 87134790 Problem Insomnia 780.52 Active 445835212 Problem Anxiety F41.9 Active 99152639 Problem Gastroesophageal reflux disease, esophagitis presence not specified K21.9 Active 208687864 Problem RLS (restless legs syndrome) G25.81 Active 69640012 Problem Moderate persistent asthma without complication J45.40 Active 792414377 Problem Benign essential hypertension I10 Active 6960001 Problem Constipation, unspecified constipation type K59.00 Active 03834020 ALLERGIES No Information ENCOUNTERS Encounter Location Date Diagnosis [facility] [address] [id number] [place] [id number] Oct, [facility] [address] [id number] [place] [id number] Oct, [facility] [address] [id number] [place] [id number] Aug, [facility] [id number], [place] [address] Aug, Back spasm M62.830 and Anxiety F41.9 [facility] [place] [address] [id number], [place] [id number] Aug, Back spasm M62.830 and Anxiety F41.9 [facility] [address] [id number] [place] [id number] Jul, [facility] [address] [id number] [place] [address] [id number] Jul, [facility] [address] [id number] [place] [address] [id number] Jul, Back muscle spasm M62.830 and RLS (restless legs syndrome) G25.81 [facility] [place] [address] [id number] [place] [address] [id number] Jul, Back spasm M62.830 [facility] [place] [id number] [place] [address] [id number] Jul, Back spasm M62.830 and Anxiety F41.9 [facility] [id number], [place] [id number] June, Insomnia, unspecified type G47.00 ; Overactive bladder N32.81 and Back spasm M62.830 [facility] [id number], [place] [id number] June, Anxiety F41.9 and Lumbago with sciatica, left side M54.42 [facility] [address]00565[place] [id number] May, Anxiety F41.9 and Lumbago with sciatica, left side M54.42 [facility] [place] [address] [facility] [address] [id number] [place] [id number] Apr, Dental examination Z01.20 [facility] [place] [address] [facility] [address] [id number] [place] [id number] Apr, [facility] [address] [facility] [id number], [place] [phone] Apr, RLS (restless legs syndrome) G25.81 ; Lumbago with sciatica, left side M54.42 and Anxiety F41.9 [facility] [place] [address] [id number], [place] [id number] Mar, [facility] [place] [id number] [place] [address] [id number] Mar, Insomnia, unspecified type G47.00 [facility] [id number] [place] [address] [phone] Mar, Insomnia, unspecified type G47.00 and RLS (restless legs syndrome) G25.81 [facility] [address] [id number] [facility] [place] [id number] Mar, [facility] [address] [id number] [id number] Mar, Dental examination Z01.20 [facility] [id number] [place] [phone]- [phone] Mar, [facility] [id number] [place] [address] [id number] Mar, Lumbago with sciatica, left side M54.42 and Anxiety F41.9 [facility] [id number] [place] [address] 29834- 2546 Mar, [facility] [id number] [place] [address] [id number] Mar, Insomnia, unspecified type G47.00 [facility] [place] [id number] [place] [address] [id number] Mar, [facility] [place] [id number] [place] [address] [id number] Feb, Insomnia, unspecified type G47.00 [facility] [place] [id number] [place] [address] [id number] Feb, Lumbago with sciatica, left side M54.42 and Anxiety F41.9 [facility] [id number] [place] [address] [id number] Feb, [facility] [place] [id number] [place] [address] [id number] Feb, RLS (restless legs syndrome) G25.81 ; Lumbago with sciatica, left side M54.42 ; Overactive bladder N32.81 and Anxiety F41.9 [id number] [place] [address] [id number] Jan, Overactive bladder N32.81 and Moderate persistent asthma without complication J45.40 [facility] [id number] [place] [address] [id number] Jan, Lumbago with sciatica, left side M54.42 and Insomnia, unspecified type G47.00 [id number] [place] [address] [id number] Jan, RLS (restless legs syndrome) G25.81 [id number] [place] [address] [id number] Dec, Overactive bladder N32.81 and Other chronic pain G89.29 [id number] [place] [address] [id number] Dec, Lumbago with sciatica, left side M54.42 ; Insomnia, unspecified type G47.00 and RLS (restless legs syndrome) G25.[address] [place] [address] [id number] Nov, Overactive bladder N32.[address] [place] [address] [id number] Nov, [address] [id number] [place] [address] [phone] Nov, Lumbago with sciatica, left side M54.42 ; Insomnia, unspecified type G47.00 and RLS (restless legs syndrome) G25.81 [address] [id number] [place] [address] [id number] Nov, Constipation, unspecified constipation type K59.00 ; Lumbago with sciatica , left side M54.42 ; Insomnia, unspecified type G47.00 ; Bloating R14.0 and Encounter for immunization Z23 [facility] [place] [address] [facility] [address] [id number] [place] [id number] Oct, Dental examination Z01.20 [facility] [address] [id number], [place] [id number] Oct, RLS (restless legs syndrome) G25.81 ; Lumbago with sciatica, left side M54.42 and Insomnia, unspecified type G47.00 [facility] [address] [id number], [place] [id number] Sep, Moderate persistent asthma without complication J45.[address] [facility] [address] [id number] [place] [id number] Sep, Dental examination Z01.20 [facility] [address] [id number], [place] [id number] Sep, Lumbago with sciatica, left side M54.42 and Insomnia, unspecified type G47.00 [facility] [id number], [place] [id number] Sep, RLS (restless legs syndrome) G25.81 [facility] [place] [address] [id number] [phone] Aug, [facility] [id number], [place] [id number] Aug, [facility] [address] [id number] [place] [address] Aug Insomnia, unspecified type G47.00 [facility] [place] [address] [facility] [address] [id number] [place] [id number] Aug, Dental examination Z01.20 [facility] [address] [id number], [place] [id number] Aug, Vaginal discharge N89.8 [facility] [id number], [place] [id number] Aug, RLS (restless legs syndrome) G25.81 [facility] [place] [address] [facility] [address] [id number] [place] [id number] Aug, Dental examination Z01.20 [facility] [place] [address] [facility] [address] [id number] [place] [id number] Jul, Dental examination Z01.20 [facility] [place] [id number], [place] [id number] Jul, Lumbago with sciatica, left side M54.42 ; RLS (restless legs syndrome) G25.81 ; Moderate persistent asthma without complication J45.40 and Other specified hypothyroidism E03.8 [facility] [place] [address] [id number] [place] [address] [id number] Jul, Insomnia, unspecified type G47.00 and Lumbago with sciatica, left side M54.42 [facility] [place] [address] [facility] [address] [id number] [place] [id number] Jul, Dental examination Z01.20 [facility] [place] [address] [facility] [address] [id number] [place] [id number] May, Dental examination Z01.20 and Dental caries K02.9 [facility] [id number], [place] [id number] May, [facility] [id number] [place] [address] [id number] May, RLS (restless legs syndrome) G25.81 [facility] [place] [id number], [place] [id number] May, Lumbago with sciatica, left side M54.42 ; Insomnia, unspecified type G47.00 and RLS (restless legs syndrome) G25.81 [facility] [id number], [place] [id number] Apr, Muscle spasms of both lower extremities M62.838 ; Constipation, unspecified constipation type K59.00 and Insomnia, unspecified type G47.00 [facility] [place] [address] [id number] [place] [address] [id number] Apr, [facility] [address] [id number] [place] [address] [id number] Apr, Anxiety F41.9 and Lumbago with sciatica, left side M54.[address] [facility] [address] [id number] [place] [id number] Mar, Encounter for dental examination and cleaning without abnormal findings Z01.20 [facility] [place] [address] [id number], [place] [id number] Mar, Muscle cramp, nocturnal R25.2 [facility] [address] [id number], [place] [id number] 14 Mar, 2016 RLS (restless legs syndrome) G25.81 ; Anxiety F41.9 ; Lumbago with sciatica, left side M54.42 ; Insomnia, unspecified type G47.00 and Muscle cramps R25.2 [facility] [id number] [place] [address] 44972- [phone] Mar, [facility] [address] [id number] [place] [address] [id number] Feb, [facility] [address] [id number] [place] [address] [id number] Feb, [facility] [address] [id number] [place] [address] [id number] Jan, [facility] [id number] [place] [address] [id number] Jan, Moderate persistent asthma without complication J45.40 [facility] [address] [id number], [place] [id number] Jan, [facility] [address] [id number], [place] [id number] Jan, [facility] [address] [id number] [place] [address] [id number] Jan, [facility] [address] [id number], [place] [id number] Jan, [facility] [address] [id number] [place] [address] [id number] Dec, [facility] [id number] [place] [address] [phone] Dec, [facility] [address] [id number], [place] [id number] Nov, [facility] [address] 43998[place], [place] [id number] Nov, [facility] [address] [id number] [place] [id number] Nov, Dental examination Z01.20 [facility] [address] [id number], [place] [id number] Nov, Bipolar depression F31.30 [facility] [address] [id number] [place] [address] [id number] Nov, Lumbago with sciatica, left side M54.42 ; Allergic rhinitis, unspecified allergic rhinitis type J30.9 ; Bipolar depression F31.30 ; Moderate persistent asthma without complication J45.40 ; Encounter for immunization Z23 ; Abdominal spasms R10.9 and Benign essential hypertension I10 [facility] [address] [id number], [place] [id number] Nov, [facility] [address] [id number], [place] [id number] Oct, [facility] [address] [id number], [place] [id number] Oct, [facility] [address] [id number], [place] [id number] Sep, [facility] [address] [id number], [place] [id number] Sep, [facility] [address] [id number], [place] [id number] Sep, [address] [id number] [place] [address] Sep [facility] [address] [id number], [place] [id number] Aug, [facility] [address] [id number], [place] [id number] Aug, Dental examination Z01.20 [facility] [address] [id number], [place] [id number] Aug, [facility] [address] [id number] [place] [id number] Aug, [facility] [id number] [place] [address] [id number] Jul, Allergic rhinitis, unspecified allergic rhinitis type J30.9 ; RLS ( restless legs syndrome) G25.81 ; Lumbago with sciatica, left side M54.42 and Other chronic pain G89.29 [facility] [address] [id number] [place] [address] [id number] Jul, Allergic rhinitis, unspecified allergic rhinitis type J30.9 and RLS ( restless legs syndrome) G25.81 [facility] [id number] [place] [address] [id number] Jul, [facility] [id number] [place] [address] [id number] June, Hypo-osmolality and hyponatremia E87.1 and Benign essential hypertension I10 [facility] [id number] [place] [address] [id number] June, [address] [id number] June, Moderate persistent asthma without complication J45.40 ; RLS (restless legs syndrome) G25.81 ; Benign essential hypertension I10 ; Anxiety F41.9 and Constipation, unspecified constipation type K59.00 [facility] [id number] [place] [address] [id number] June, Encounter for dental examination and cleaning without abnormal findings Z01.20 [id number] [place] [address] [id number] June, [place] [id number] [place] [address] [id number] June, [facility] [id number] [place] [address] [id number] June, [place] [id number] [place] [address] [id number] May, [facility] [id number] [place] [address] [id number] May, [facility] [id number] [place] [address] [id number] May, [place] [address] [id number] [id number] May, [facility] [address] [id number] [place] [address] [id number] Apr, [facility] [address] [id number] [place] [address] [id number] Apr, Anxiety F41.9 [facility] [address] [id number] [place] [address] [id number] Apr, [facility] [address] [id number] [place] [address] [id number] Mar, [facility] [address] [id number] [place] [address] [id number] Mar, [facility] [address] [id number] [place] [address] [id number] Mar, [facility] [address] [id number] [place] [address] [id number] Mar, RLS (restless legs syndrome) G25.81 ; Anxiety F41.9 and Moderate persistent asthma without complication J45.40 [facility] [address] [id number], [place] [id number] Mar, [facility] [address] [id number] [place] [address] [id number] Mar, [facility] [address] [id number], [place] [id number] Feb, [facility] [address] [id number] [place] [address] [id number] Feb, [facility] [address] [id number], [place] [id number] Feb, [place] [facility] [address] [id number] [place] [id number] Feb, Encounter for dental examination Z01.20 [facility] [address] [id number] [place] [address] [id number] Feb, [facility] [address] [id number] [place] [address] [id number] Jan, [facility] [id number] [place] [address] [id number] Jan, Benign essential hypertension I10 [facility] [address] [id number], [place] [id number] Jan, RLS (restless legs syndrome) G25.81 and Gastroesophageal reflux disease, esophagitis presence not specified K21.9 [facility] [id number], [place] [id number] Jan, [facility] [id number], [place] [id number] Jan, [facility] [id number] [place] [address] [id number] Dec, Anxiety F41.9 ; Benign essential hypertension I10 and RLS (restless legs syndrome) G25.81 [facility] [id number] [place] [address] [id number] Dec, RLS (restless legs syndrome) G25.81 ; Esophageal reflux 530.81 and Anxiety F41.9 [facility] [address] [id number] [place] [id number] Dec, [facility] [id number], [place] [id number] Nov, Anxiety F41.9 [address] [place] [address] [id number] Nov, Anxiety F41.9 ; Encounter for immunization Z23 ; Benign essential hypertension I10 ; RLS (restless legs syndrome) G25.81 and Rhinitis J31.0 [facility] [address] [facility] [id number], [place] [address] Nov, [facility] [address] [id number], [place] [id number] Nov, [facility] [address] [id number] [place] [id number] Nov, [facility] [address] [id number], [place] [id number] Nov, [facility] [address] [facility] [id number], [place] [id number] Nov, [facility] [address] [id number] [place] [id number] Oct, [facility] [address] [id number], [place] [id number] Oct, [facility] [place] [address] [id number], [place] [id number] Oct, [facility] [address] [id number], [place] [id number] Oct, Esophageal reflux 530.81 ; Asthma, unspecified, unspecified status 493.90 and Essential hypertension, benign 401.1 [facility] [address] [id number], [place] [id number] Oct, [facility] [address] [id number], [place] [id number] Oct, [facility] [address] [id number], [place] [id number] Oct, [facility] [address] [id number], [place] [id number] Sep, [facility] [address] [id number], [place] [id number] Sep, Esophageal reflux 530.81 ; Insomnia 780.52 and Essential hypertension, benign 401.1 [facility] [address] [id number], [place] [id number] Sep, [facility] [address] [id number], [place] [id number] Sep, [facility] [address] [id number], [place] [id number] Sep, [facility] [address] [id number], [place] [id number] Sep, [facility] [address] [id number], [place] [id number] Sep, [facility] [address] [id number], [place] [id number] Sep, [facility] [address] [id number], [place] [id number] Sep, [facility] [address] [id number], [place] [id number] Sep, Essential hypertension, benign 401.1 ; Hyponatremia 276.1 and 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 [facility] [id number], [place] [id number] Sep, [facility] [id number] [place] [address] [id number] Aug, [facility] [id number] [place] [address] [id number] Aug, [facility] [id number] [place] [address] [id number] Jul, [facility] [id number] [place] [address] [id number] Jul, [facility] [id number] [place] [address] [id number] Jul, [facility] [id number] [place] [address] [id number] Jul, [facility] [id number] [place] [address] [id number] Jul, [facility] [id number] [place] [address] [id number] Jul, Insomnia 780.52 [facility] [id number] [place] [address] [id number] June, Muscle stiffness 728.9 and Insomnia 780.52 [facility] [id number] [place] [address] [id number] June, [facility] [id number] [place] [address] [id number] June, [facility] [id number] [place] [address] [id number] June, [facility] [id number] [place] [address] [id number] June, [facility] [id number] [place] [address] [id number] May, [facility] [place] [id number] [id number] May, [facility] [place] [id number] [place] [address] [id number] May, [facility] [address] [id number] [place] [id number] Apr, [facility] [address] [facility] [id number], [place] [address] Apr, [facility] [address] [facility] [id number] [id number] Apr, [facility] [address] [id number], [place] [address] Apr, [facility] [address] [facility] [id number], [place] [address] Apr, [facility] [address] [id number], [place] [address] Apr, [facility] [address] [facility] [id number] [id number] Apr, [facility] [address]65[address], [place] [address] Apr, [facility] [address] [facility] [id number] [id number] Mar, [facility] [address]65[address], [place] [address] Mar, [facility] [address] [id number] [id number] Mar, [facility] [address] [id number], [place] [address] Mar, [facility] [address] [facility] [id number] [id number] Mar, [facility] [place] [facility] [address] [facility] [id number], [place] [address] Mar, [facility] [place] [facility] [address] [facility] [id number], [place] [address] Mar, [facility] [address] [facility] [id number][place] [id number] Feb, [facility] [place] [facility] [address], [place] [address] Feb, [facility] [address] [id number] [place] [id number] Feb, [facility] [address] [id number] [place] [id number] Feb, [facility] [address] [id number] [place] [id number] Feb, [facility] [place] [facility] [address] [facility] [id number], [place] [address] Feb, [facility] [place] [facility] [address] [facility] [id number] [place] [address] Feb, [facility] [place] [facility] [address] [facility] [id number] [place] [address] Feb, [facility] [address] [facility] [id number] [place] [id number] Feb, [facility] [place] [facility] [address]65[address], [place] [address] Feb, [facility] [address] [facility] [id number] [place] [id number] Feb, [facility] [place] [facility] [address]65100[place], [place] [address] Feb, [facility] [place] [facility] [address]65[address], [place] [address] Jan, [facility] [address] [id number][place] [id number] Jan, [facility] [place] [facility] [address] [id number], [place] [address] Jan, [facility] [address] [id number] [place] [id number] Jan, [facility] [place] [facility] [address] [facility] [id number], [place] [address] Jan, [facility] [address] [id number] [place] [id number] Jan, [facility] [place] [facility] [address] [facility] [id number] [place] [address] Jan, [facility] [address] [facility] [id number] [place] [address] Jan, [facility] [address] [facility] [id number] [place] [id number] Jan, [facility] [address] [facility] [id number] [place] [address] Jan, [facility] [address] [facility] [id number] [place] [address] June, IMMUNIZATIONS No Known Immunizations SOCIAL HISTORY Never Assessed REASON FOR VISIT Medication question PLAN OF CARE VITAL SIGNS MEDICATIONS Medication Instructions Dosage Frequency Start Date End Date Duration Status Ambien 5 mg Orally Once a day. Must last one [...] Surgical History Esophagus stretched 2017 Hospitalization History [facility] for hyponatremia, change in mental status, angioedema 09/2014
--- OUTSIDE RECORDS SUMMARY | 2017-08-27 16:24 | XMS REPORT ---
Author Author AIMEE LING [facility] Address [address] [place] [address] Care Team Providers Care Palliative Senior Np Name Role Phone AIMEE LING Unavailable PROBLEMS Type Condition ICD9-CM Code [id number] Code Onset Dates Condition Status SNOMED Code Problem RLS (restless legs syndrome) G25.81 Active 49232182 Problem Anxiety F41.9 Active 01843786 Problem Benign essential hypertension I10 Active 9967124 Problem Bipolar disorder, unspecified 296.80 Active 85987417 Problem Insomnia 780.52 Active 313944081 Problem 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 34581539 Problem Hyponatremia 276.1 Active 25448208 Problem Lumbago with sciatica, left side M54.42 Active 569100695 Problem Allergic rhinitis, unspecified allergic rhinitis type J30.9 Active 77876526 Problem Moderate persistent asthma without complication J45.40 Active 568712615 Problem Gastroesophageal reflux disease, esophagitis presence not specified K21.9 Active 459586631 Problem Constipation, unspecified constipation type K59.00 Active 67345549 Problem Encounter for dental examination and cleaning without abnormal findings Z01.20 Active 905050854 ALLERGIES Unknown Allergies SOCIAL HISTORY No smoking Hx information available PLAN OF CARE VITAL SIGNS MEDICATIONS Medication Instructions Dosage Frequency Start Date End Date Duration Status Clonazepam 0.5 MG Orally Once a day at HS, PRN for RLS. Must last one month 1 tablet Jul, Active HydrOXYzine HCl 25 MG Orally 3 times a day 1 tablet as needed 8h Active Tramadol HCl 50 mg Orally 2 times a day 1 tablet as needed 12h Jul, Active Zolpidem Tartrate 10 MG Orally Once a day must last 1 m 1 tablet at bedtime as needed Active RESULTS No Results PROCEDURES No Known procedures IMMUNIZATIONS No Known Immunizations
--- OUTSIDE RECORDS SUMMARY | 2017-08-27 16:24 | XMS REPORT ---
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 Active 32383598 Problem Abdominal spasms R10.9 Active 41035534 Problem Bipolar depression F31.30 Active 67791564 Problem Muscle spasms of both lower extremities M62.838 Active 846927601 Problem Insomnia, unspecified type G47.00 Active 507316111 Problem 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 78512235 Problem Hyponatremia 276.1 Active 13743947 Problem Insomnia 780.52 Active 298804430 Problem Anxiety F41.9 Active 40348464 Problem Gastroesophageal reflux disease, esophagitis presence not specified K21.9 Active 521094552 Problem RLS (restless legs syndrome) G25.81 Active 12618440 Problem Moderate persistent asthma without complication J45.40 Active 670146309 Problem Benign essential hypertension I10 Active 7708033 Problem Encounter for dental examination and cleaning without abnormal findings Z01.20 Active 172633723 ALLERGIES Substance Reaction Event Type Date Status Lyrica hives Drug Allergy May, Active Advair Diskus facial swelling Drug Allergy May, Active SOCIAL HISTORY Never Assessed PLAN OF CARE Activity Details Follow Up prn Reason:te VITAL SIGNS Height 63 in 2016-06-05 Blood pressure systolic 157 mmHg 2016-06-05 Blood pressure diastolic 86 mmHg 2016-06-05 MEDICATIONS Medication Instructions Dosage Frequency Start Date End Date Duration Status Ibuprofen 800 MG Orally Three times a day as needed 1 tablet Active Prilosec 40 mg Orally Once a day 1 capsule 24h Nov, Active Zyprexa 20 MG TAKE ONE (1) TABLET BY MOUTH DAILY... 30 Active Symbicort 80-4.5 MCG/ACT Inhalation Twice a day 2 puffs 12h June, Active HydrOXYzine HCl 25 MG TAKE (1) TABLET BY MOUTH 3 TIMES DAILY. Active Premarin 0.9 MG TAKE ONE (1) TABLET BY MOUTH ONCE DAILY. 90 Active Lamictal 100 MG TAKE ONE (1) TABLET BY MOUTH DAILY... Active Imdur 30 MG Orally Once a day 1 tablet 24h Sep, Active Tramadol HCl 50 mg Orally 2 times a day mmust last 1 month 1 tablet Active ProAir HFA 108 (90 Base) MCG/ACT INHALE (2) PUFFS BY MOUTH (4) TIMES DAILY NEEDED FOR SHORTNESS OF BREATH/WHEEZING. Active Gabapentin 800 MG Orally Once a day 1 tablet 24h Active Clonazepam 0.5 MG Orally Once a day at HS, PRN for RLS. Must last one month 1 tablet Jul, Active Zolpidem Tartrate 10 mg Orally Once a day must last 1 m 1 tablet at bedtime as needed Active Patanol 0.1 % Ophthalmic Twice a day 1 drop into affected eye 12h Jul, Active Dicyclomine HCl 10 mg Orally 3 times a day before meals 1 tablet Nov, Active Coolidge 5-325 MG Orally 1 P.O. Q6H PRN PAIN 1 tablet as needed May, May, 4 days Active Levothyroxine Sodium 50 MCG TAKE ONE (1) TABLET BY MOUTH DAILY... Active Hydrochlorothiazide 25 MG Orally Once a day 1 tablet 24h Dec, Active Gabapentin 300 MG Orally 3 times a day 1 tablet 8h Active Zyrtec Allergy 10 mg Orally Once a day 1 tablet as needed 24h 90 Active Flonase 50 MCG/ACT Nasally 2 times a day 2 spray in each nostril 12h Nov Active Singulair 10 MG Orally Once a day 1 tablet in the evening 24h 90 Active RESULTS No Results PROCEDURES Procedure Date Ordered Result Body Site INTRAORL-PERIAPICAL 1 FILM 23563 June 05, 2016 INTRAORL-PERIAPICAL EA ADD FILM June 05, 2016 EXTRAC ERUPTED TOOTH/EXPOSED ROOT June 05, 2016 EXTRAC ERUPTED TOOTH/EXPOSED ROOT June 05, 2016 IMMUNIZATIONS No Known Immunizations MEDICAL (GENERAL) HISTORY [...] History Bilateral cataract surgery 01/26 Hospitalization History [facility] for hyponatremia, change in mental status, angioedema 09/2014
--- OUTSIDE RECORDS SUMMARY | 2017-08-27 16:24 | XMS REPORT ---
Author Author AIMEE LING Organization [employer] Address Unknown Phone Unavailable Care Team Providers Care Industry Operations Investigator Name Role Phone AIMEE LING CP Unavailable Allergies No Known Allergies Problems Problem Type Condition Code Onset Dates Condition Status Problem Need for prophylactic vaccination and inoculation, Influenza V04.81 Active Problem Insomnia 780.52 Active Problem Esophageal reflux 530.81 Active Problem Gastroesophageal reflux disease, esophagitis presence not specified K21.9 Active Problem Anxiety F41.9 Active Problem Moderate persistent asthma without complication J45.40 Active Problem Hyponatremia 276.1 Active Problem 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 Problem Benign essential hypertension I10 Active Problem RLS (restless legs syndrome) G25.81 Active Problem Unspecified constipation 564.00 Active Problem Essential hypertension, benign 401.1 Active Problem Contact dermatitis and other eczema, due to unspecified cause 692.9 Active Problem Asthma, unspecified, unspecified status 493.90 Active Problem Restless legs syndrome [RLS] 333.94 Active Problem Bipolar disorder, unspecified 296.80 Active Medications Medication Code System Code Instructions Start Date End Date Status Dosage Clonazepam [facility] [address]-63 0.5 MG Orally Once a day at HS, PRN for RLS. Must last one month August 04, 2014 1 tablet Results No Known Results Summary Purpose [employer] Submission
--- OUTSIDE RECORDS SUMMARY | 2017-08-27 16:24 | XMS REPORT ---
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 Active 56077771 Problem Muscle spasms of both lower extremities M62.838 Active 292078187 Problem Bipolar depression F31.30 Active 95957907 Problem Lumbago with sciatica, left side M54.42 Active 935005413 Problem Insomnia, unspecified type G47.00 Active 454673649 Problem Abdominal spasms R10.9 Active 01786167 Problem Insomnia 780.52 Active 410063069 Problem 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 99153727 Problem Benign essential hypertension I10 Active 5069296 Problem Anxiety F41.9 Active 53663182 Problem Hyponatremia 276.1 Active 37051314 Problem Gastroesophageal reflux disease, esophagitis presence not specified K21.9 Active 464479828 Problem RLS (restless legs syndrome) G25.81 Active 35692554 Problem Moderate persistent asthma without complication J45.40 Active 442824764 ALLERGIES Unknown Allergies SOCIAL HISTORY No smoking Hx information available PLAN OF CARE VITAL SIGNS MEDICATIONS Medication Instructions Dosage Frequency Start Date End Date Duration Status Tramadol HCl 50 mg Orally 2 times a day 1 tablet 12h Active Clonazepam 0.5 MG Orally Once a day at HS, PRN for RLS. Must last one month 1 tablet Jul, Active RESULTS No Results PROCEDURES No Known procedures IMMUNIZATIONS No Known Immunizations
--- OUTSIDE RECORDS SUMMARY | 2017-08-27 16:24 | XMS REPORT ---
Author Author AIMEE LING [facility] Address [address] [place] [address] Care Team Providers Care Smoke Room Operator Name Role Phone AIMEE LING Unavailable PROBLEMS Type Condition ICD9-CM Code VFI71-CW Code Onset Dates Condition Status SNOMED Code Problem Allergic rhinitis, unspecified allergic rhinitis type J30.9 Active 17741853 Problem Bipolar depression F31.30 Active 65024287 Problem Lumbago with sciatica, left side M54.42 Active 112988564 Problem Other chronic pain G89.29 Active 15800076 Problem Overactive bladder N32.81 Active 043678282 Problem Insomnia, unspecified type G47.00 Active 218211496 Problem Abdominal spasms R10.9 Active 29008912 Problem Other specified hypothyroidism E03.8 Active 69934998 Problem Muscle spasms of both lower extremities M62.838 Active 589832436 Problem 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 17889152 Problem Hyponatremia 276.1 Active 47027257 Problem Insomnia 780.52 Active 244796916 Problem Anxiety F41.9 Active 67032732 Problem Gastroesophageal reflux disease, esophagitis presence not specified K21.9 Active 301634020 Problem RLS (restless legs syndrome) G25.81 Active 10029992 Problem Moderate persistent asthma without complication J45.40 Active 080028462 Problem Benign essential hypertension I10 Active 6324277 Problem Constipation, unspecified constipation type K59.00 Active 84732654 ALLERGIES No Information ENCOUNTERS Encounter Location Date Diagnosis [facility] [id number] [id number] [place] [phone] June, [facility] [address] [facility] [id number] [place] [phone] June, [facility] [address] [facility] [id number] [place] [id number] June, Anxiety F41.9 and Lumbago with sciatica, left side M54.42 [facility] [place] [id number], [place] [phone] May, Anxiety F41.9 and Lumbago with sciatica, left side M54.42 [facility] [address] [place] [address] [id number], [place] [phone] Apr, Dental examination Z01.20 [facility] [address] [place] [address] [id number], [place] [phone] Apr, [facility] [place] [id number] [place] [address] [phone] Apr, RLS (restless legs syndrome) G25.81 ; Lumbago with sciatica, left side M54.42 and Anxiety F41.9 [facility] [place] [id number], [place] [phone] Mar, [facility] [id number] [place] [address] [id number] Mar, Insomnia, unspecified type G47.00 [facility] [place] [id number] [place] [address] [id number] Mar, Insomnia, unspecified type G47.00 and RLS (restless legs syndrome) G25.81 [facility] [address] [place] [address] [id number], [place] [phone] Mar, [facility] ARNOLDTER Sammy[address] [place] [address] [id number], [place] [phone] Mar, Dental examination Z01.20 [facility] [id number] [place] [phone] Mar, [facility] [id number], [place] [id number] Mar, Lumbago with sciatica, left side M54.42 and Anxiety F41.9 [facility] [id number] [place] [phone] Mar, [facility] [id number], [place] [id number] Mar, Insomnia, unspecified type G47.00 [facility] [address] [id number], [place] [id number] Mar, [facility] [id number] [place] [address] [id number] Feb, Insomnia, unspecified type G47.00 [facility] [id number] [place] [address] [id number] Feb, Lumbago with sciatica, left side M54.42 and Anxiety F41.9 [facility] [address] [id number] [place] [address] [id number] Feb, [facility] [id number] [place] [address] [id number] Feb, RLS (restless legs syndrome) G25.81 ; Lumbago with sciatica, left side M54.42 ; Overactive bladder N32.81 and Anxiety F41.9 [facility] [id number] [place] [address] [id number] Jan, Overactive bladder N32.81 and Moderate persistent asthma without complication J45.40 [facility] [id number] [place] [address] [id number] Jan, Lumbago with sciatica, left side M54.42 and Insomnia, unspecified type G47.00 [facility] [place] [id number] [place] [address] [id number] Jan, RLS (restless legs syndrome) G25.81 [facility] [id number] [place] [address] [id number] Dec, Overactive bladder N32.81 and Other chronic pain G89.29 [facility] [id number] [place] [address] [id number] 08 Dec, 2016 Lumbago with sciatica, left side M54.42 ; Insomnia, unspecified type G47.00 and RLS (restless legs syndrome) G25.81 [facility] [id number] [place] [address] [id number] Nov, Overactive bladder N32.81 [facility] [id number] [place] [address] [id number] Nov, [facility] [place] [address] [facility] [id number], [place] [id number] Nov, Lumbago with sciatica, left side M54.42 ; Insomnia, unspecified type G47.00 and RLS (restless legs syndrome) G25.81 [facility] [address] [facility] [id number], [place] [id number] Nov, Constipation, unspecified constipation type K59.00 ; Lumbago with sciatica , left side M54.42 ; Insomnia, unspecified type G47.00 ; Bloating R14.0 and Encounter for immunization Z23 [facility] [place] [address] [place] [address] AVE [id number], [place] [phone] Oct, Dental examination Z01.20 [facility] [place] [id number], [place] [phone] Oct, RLS (restless legs syndrome) G25.81 ; Lumbago with sciatica, left side M54.42 and Insomnia, unspecified type G47.00 [facility] [place] [id number], [place] [id number] Sep, Moderate persistent asthma without complication J45.40 [facility] [place] [address] [place] [address] AVE [id number], [place] [phone] Sep, Dental examination Z01.20 [facility] [id number], [place] [id number] Sep, Lumbago with sciatica, left side M54.42 and Insomnia, unspecified type G47.00 [facility] [place] [id number], [place] [id number] Sep, RLS (restless legs syndrome) G25.81 [facility] [address] [facility] [id number], [place] [address] Aug, [facility] [place] [id number], [place] [id number] Aug, [facility] [address] [place] [address] [id number] [place] [address] Aug Insomnia, unspecified type G47.[address] [facility] [address] [facility] [facility] [address] [id number], [place] [phone] Aug, Dental examination Z01.20 [facility] [place] [address] [id number], [place] [id number] Aug, Vaginal discharge N89.8 [facility] [address] [id number], [place] [phone] Aug, RLS (restless legs syndrome) G25.81 [facility] [address] [facility] [facility] [address] [id number], [place] [id number] Aug, Dental examination Z01.20 [facility] [address] [facility] [facility] [address] [id number], [place] [id number] Jul, Dental examination Z01.20 [facility] [place] [address] [id number], [place] [phone] Jul, Lumbago with sciatica, left side M54.42 ; RLS (restless legs syndrome) G25.81 ; Moderate persistent asthma without complication J45.40 and Other specified hypothyroidism E03.8 [facility] [address] [id number], [place] [id number] Jul, Insomnia, unspecified type G47.00 and Lumbago with sciatica, left side M54.42 [facility] [facility] [address] [id number], [place] [id number] Jul, Dental examination Z01.20 [facility] [address] [id number], [place] [phone] May, Dental examination Z01.20 and Dental caries K02.9 [facility] [place] [address] [id number], [place] [id number] May, [facility] [place] [address] [id number], [place] [id number] May, RLS (restless legs syndrome) G25.81 [facility] [place] [address] [id number], [place] [id number] May, Lumbago with sciatica, left side M54.42 ; Insomnia, unspecified type G47.00 and RLS (restless legs syndrome) G25.81 [facility] [id number] [place] [address] [id number] Apr, Muscle spasms of both lower extremities M62.838 ; Constipation, unspecified constipation type K59.00 and Insomnia, unspecified type G47.00 [facility] [id number] [place] [address] [id number] Apr, [facility] [id number] [place] [address] [id number] Apr, Anxiety F41.9 and Lumbago with sciatica, left side M54.42 [facility] [address] [place] [address] [id number] 27 Mar, 2016 Encounter for dental examination and cleaning without abnormal findings Z01.20 [facility] [id number] [place] [address] [id number] Mar, Muscle cramp, nocturnal R25.2 [facility] [place] [id number] [place] [address] [id number] 14 Mar, 2016 RLS (restless legs syndrome) G25.81 ; Anxiety F41.9 ; Lumbago with sciatica, left side M54.42 ; Insomnia, unspecified type G47.00 and Muscle cramps R25.2 [facility] [address]00565100[place], [place] [address] Mar, [facility] [id number] [place] [address] [id number] Feb, [facility] [id number] [place] [address] [id number] Feb, [facility] [id number] [place] [address] [id number] Jan, [place] [id number] [place] [address] [id number] Jan, Moderate persistent asthma without complication J45.40 [facility] [id number] [place] [address] [id number] Jan, [place] [id number] [place] [address] [id number] Jan, [facility] [place] [address] [id number], [place] [id number] Jan, [facility] [address] [id number] [place] [address] [id number] Jan, [facility] [address] [id number], [place] [id number] Dec, [facility] [address]00565100[place], [place] [address] Dec, [facility] [id number], [place] [id number] Nov, [facility] [address] [id number], [place] [id number] Nov, [facility] [place] [address] [facility] [address] [id number], [place] [phone] Nov, Dental examination Z01.20 [facility] [id number] [place] [address] [id number] Nov, Bipolar depression F31.30 [facility] [id number], [place] [id number] Nov, Lumbago with sciatica, left side M54.42 ; Allergic rhinitis, unspecified allergic rhinitis type J30.9 ; Bipolar depression F31.30 ; Moderate persistent asthma without complication J45.40 ; Encounter for immunization Z23 ; Abdominal spasms R10.9 and Benign essential hypertension I10 [facility] [place] [address] [id number], [place] [id number] Nov, [facility] [address] [id number], [place] [id number] Oct, [facility] [address] [id number], [place] [id number] Oct, [facility] [place] [id number] [place] [address] [id number] Sep, [facility] [place] [address] [id number], [place] [id number] Sep, [facility] [address] [id number], [place] [id number] Sep, [facility] [address] [id number] [place] [address] Sep [facility] [address] [facility] [id number], [place] [id number] Aug, [facility] [address] [id number] [place] [phone] Aug, Dental examination Z01.20 [facility] [address] [id number], [place] [phone] Aug, [facility] [address] [facility] [facility] [address] [id number], [place] [id number] Aug, [facility] [address] [id number], [place] [id number] Jul, Allergic rhinitis, unspecified allergic rhinitis type J30.9 ; RLS ( restless legs syndrome) G25.81 ; Lumbago with sciatica, left side M54.42 and Other chronic pain G89.29 [facility] [address] [id number], [place] [id number] Jul, Allergic rhinitis, unspecified allergic rhinitis type J30.9 and RLS ( restless legs syndrome) G25.81 [facility] [address] [facility] [id number], [place] [phone] Jul, [facility] [id number], [place] [id number] June, Hypo-osmolality and hyponatremia E87.1 and Benign essential hypertension I10 [facility] [address] [id number], [place] [phone] June, [facility] [id number], [place] [id number] June, Moderate persistent asthma without complication J45.40 ; RLS (restless legs syndrome) G25.81 ; Benign essential hypertension I10 ; Anxiety F41.9 and Constipation, unspecified constipation type K59.00 [facility] [address] [id number], [place] [id number] June, Encounter for dental examination and cleaning without abnormal findings Z01.20 [facility] [address] [id number], [place] [id number] June, [facility] [place] [address] [id number] [place] [id number] June, [facility] [place] [address] [id number] [place] [id number] June, [facility] [place] [address] [id number] [place] [id number] May, [facility] [place] [address] [id number] [place] [id number] May, [facility] [place] [address] [id number] [place] [id number] May, [facility] [place] [address] [id number] [place] [phone] May, [facility] [place] [address] [id number] [place] [id number] Apr, [facility] [place] [address] [id number] [place] [id number] Apr, Anxiety F41.9 [facility] [place] [address] [id number] [place] [id number] Apr, [facility] [place] [address] [id number] [place] [id number] Mar, [facility] [place] [address] [id number] [place] [phone] Mar, [facility] [place] [address] [id number], [place] [id number] Mar, [facility] [place] [address] [id number] [place] [phone] Mar, RLS (restless legs syndrome) G25.81 ; Anxiety F41.9 and Moderate persistent asthma without complication J45.40 [facility] [place] [address] [id number] [place] [phone] Mar, [facility] [place] [address] [id number], [place] [id number] Mar, [facility] [place] [address] [id number], [place] [id number] Feb, [facility] [place] [id number] [place] [address] [id number] Feb, [facility] [address] [id number], [place] [id number] Feb, [address] [id number], [place] [id number] Feb, Encounter for dental examination Z01.20 [facility] [id number] [place] [address] [id number] Feb, [facility] [id number] [place] [address] [id number] Jan, [facility] [address] [id number], [place] [id number] Jan, Benign essential hypertension I10 [facility] [id number] [place] [address] [id number] Jan, RLS (restless legs syndrome) G25.81 and Gastroesophageal reflux disease, esophagitis presence not specified K21.9 [facility] [id number] [place] [address] [id number] Jan, [facility] [id number], [place] [id number] Jan, [place] [id number] [place] [address] [id number] Dec, Anxiety F41.9 ; Benign essential hypertension I10 and RLS (restless legs syndrome) G25.81 [facility] [id number], [place] [id number] Dec, RLS (restless legs syndrome) G25.81 ; Esophageal reflux 530.81 and Anxiety F41.9 [facility] [address] [facility] [facility] [address] [id number], [place] [id number] Dec, [facility] [address] [id number], [place] [id number] Nov, Anxiety F41.9 [facility] [id number], [place] [id number] Nov, Anxiety F41.9 ; Encounter for immunization Z23 ; Benign essential hypertension I10 ; RLS (restless legs syndrome) G25.81 and Rhinitis J31.0 [facility] [address] [facility] [id number] [place] [address] Nov, [facility] [address] [id number], [place] [id number] Nov, [facility] [address] [id number], [place] [id number] Nov, [facility] [address] [id number], [place] [id number] Nov, [facility] [address] [id number] [place] [id number] Nov, [facility] [address] [id number], [place] [id number] Oct, [facility] [address] [id number] [place] [id number] Oct, [facility] [address] [id number], [place] [id number] Oct, [facility] [id number], [place] [id number] Oct, Esophageal reflux 530.81 ; Asthma, unspecified, unspecified status 493.90 and Essential hypertension, benign 401.1 [facility] [id number], [place] [id number] Oct, [facility] [address] 90547971Q03165615ETHELENA, [place] [id number] Oct, [facility] [id number], [place] 875774110 Oct, [facility] [id number], [place] [id number] Sep, [facility] [address] [id number], [place] [id number] Sep, Esophageal reflux 530.81 ; Insomnia 780.52 and Essential hypertension, benign 401.1 [facility] [id number], [place] [id number] Sep, [facility] [address] [id number], [place] [id number] Sep, [facility] [place] [address] [id number], [place] [id number] Sep, [facility] [place] [address] [id number], [place] 454551384 Sep, [facility] [place] [address] [id number], [place] [id number] Sep, [facility] [place] [address] [id number], [place] [id number] Sep, [facility] [place] [address] [id number] [place] [address] [id number] Sep, [facility] [place] [address] [id number], [place] [id number] Sep, Essential hypertension, benign 401.1 ; Hyponatremia 276.1 and 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 [facility] [place] [address] [id number], [place] [id number] Sep, [facility] [place] [address] [id number], [place] [phone] Aug, [facility] [place] [address] [id number], [place] [id number] Aug, [facility] [place] [address] [id number], [place] [id number] Jul, [facility] [place] [id number] [place] [address] [id number] Jul, [facility] [place] [address] [id number], [place] [id number] Jul, [facility] [address] [id number], [place] [id number] Jul, [facility] [address] [id number][place] [id number] Jul, [facility] [address] [id number][place] [id number] Jul, Insomnia 780.52 [facility] [address] [id number] [place] [id number] June, Muscle stiffness 728.9 and Insomnia 780.52 [facility] [address] [id number][place] [id number] June, [facility] [address] [id number] [place] [id number] June, [facility] [address] [id number] [place] [id number] June, [facility] [address] [id number] [place] [id number] June, [facility] [address] [id number] [place] [id number] May, [facility] [place] [facility] [address] [facility] [id number] [place] [address] May, [facility] [place] [facility] [address] [facility] [id number] [place] [address] May, [facility] [address] [facility] [id number] [place] [id number] Apr, [facility] [place] [facility] [id number], [place] [address] Apr, [facility] [address] [facility] [id number] [place] [id number] Apr, [facility] [place] [facility] [id number], [place] [address] Apr, [facility] [place] [facility] [id number], [place] [address] Apr, [facility] [place] [facility] [id number], [place] [address] Apr, [facility] [address] [facility] [id number] [place] [id number] Apr, [facility] [place] [facility] [address] [facility] [id number], [place] [address] Apr, [facility] [address] [facility] [id number] [place] [id number] Mar, [facility] [place] [facility] [address] [facility] [id number] [place] [address] Mar, [facility] [address] [facility] [id number] [place] [id number] Mar, [facility] [place] [facility] [address] [id number], [place] [address] Mar, [facility] [address] [facility] [id number] [place] [id number] Mar, [facility] [place] [facility] [address] [facility] [id number], [place] [address] Mar, [facility] [place] [facility] [address] [facility] [id number] [place] [address] Mar, [facility] [address] [id number] [place] [id number] Feb, [facility] [place] [facility] [address] [facility] [id number], [place] [address] Feb, [facility] [address] [facility] [id number] [place] [id number] Feb, [facility] [id number][place] [id number] Feb, [facility] [address] [facility] [id number][place] [id number] Feb, [facility] [place] [facility] [address] [facility] [id number], [place] [address] Feb, [facility] [address] [id number], [place] [address] Feb, [facility] [address] [facility] [id number], [place] [address] Feb, [facility] [address] [facility] [id number] [id number] Feb, [facility] [address] [facility] [id number], [place] [address] Feb, [facility] [address] [facility] [id number][place] [id number] Feb, [facility] [address] [facility] [id number], [place] [address] Feb, [facility] [address] [facility] [id number], [place] [address] Jan, [facility] [address] [facility] [id number][place] [id number] Jan, [facility] [address]65[address], [place] [address] Jan, [facility] [address] [id number][place] [id number] Jan, [facility] [address]65[address], [place] [address] Jan, [facility] [id number] [id number] Jan, [facility] [id number] [place] [address] Jan, [facility] [address]65[address], [place] [address] Jan, [facility] [address] [id number] Jan, [facility] [address]65[address], [place] [address] Jan, [facility] [address], [place] [address] June, IMMUNIZATIONS No Known Immunizations SOCIAL HISTORY Never Assessed REASON FOR VISIT med refills PLAN OF CARE VITAL SIGNS MEDICATIONS Medication Instructions Dosage Frequency Start Date End Date Duration Status Clonazepam 0.5 MG Orally Once a day at HS, PRN for RLS. Must last one month 1.5 tablet Jul, 0 days Active Tramadol HCl 50 mg [...]
--- OUTSIDE RECORDS SUMMARY | 2017-08-27 16:24 | XMS REPORT ---
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 Role Phone AIMEE LING Unavailable PROBLEMS Type Condition ICD9-CM Code [id number] Code Onset Dates Condition Status SNOMED Code Problem Encounter for dental examination and cleaning without abnormal findings Z01.20 Active 667921415 Problem Allergic rhinitis, unspecified allergic rhinitis type J30.9 Active 32752850 Problem Constipation, unspecified constipation type K59.00 Active 80720656 Problem Other specified hypothyroidism E03.8 Active 75418108 Problem Muscle spasms of both lower extremities M62.838 Active 086550681 Problem Abdominal spasms R10.9 Active 23648066 Problem Lumbago with sciatica, left side M54.42 Active 831858570 Problem Insomnia, unspecified type G47.00 Active 951400693 Problem Bipolar depression F31.30 Active 73183697 Problem Insomnia 780.52 Active 736166775 Problem 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 35774069 Problem Benign essential hypertension I10 Active 0007721 Problem Anxiety F41.9 Active 68980868 Problem Hyponatremia 276.1 Active 37221188 Problem Gastroesophageal reflux disease, esophagitis presence not specified K21.9 Active 404767258 Problem RLS (restless legs syndrome) G25.81 Active 13760520 Problem Moderate persistent asthma without complication J45.40 Active 216934055 ALLERGIES Unknown Allergies SOCIAL HISTORY No smoking Hx information available PLAN OF CARE VITAL SIGNS MEDICATIONS Medication Instructions Dosage Frequency Start Date End Date Duration Status Tramadol HCl 50 mg Orally 2 times a day 1 tablet as needed 12h Jul, Active Clonazepam 0.5 MG Orally Once a day at HS, PRN for RLS. Must last one month 1 tablet Jul, Active RESULTS No Results PROCEDURES No Known procedures IMMUNIZATIONS No Known Immunizations
--- OUTSIDE RECORDS SUMMARY | 2017-08-27 16:24 | XMS REPORT ---
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
--- OUTSIDE RECORDS SUMMARY | 2017-08-27 16:25 | XMS REPORT ---
Author Author AIMEE LING Organization [employer] Address Unknown Phone Unavailable Care Team Providers Care Space Systems Operations Craftsman Name Role Phone AIMEE LING CP Unavailable [...] syndrome) G25.81 Active Problem Hyponatremia 276.1 Active Problem Restless legs syndrome [RLS] 333.94 Active Problem Unspecified constipation 564.00 Active Problem Essential hypertension, benign 401.1 Active Problem Contact dermatitis and other eczema, due to unspecified cause 692.9 Active Problem Asthma, unspecified, unspecified status 493.90 Active Medications Medication Code System Code Instructions Start Date End Date Status Dosage Zolpidem Tartrate [facility] [address]-93 10 MG Orally Once a day must last 1 m 1 tablet at bedtime as needed Results No Known Results Summary Purpose [employer] Submission
--- OUTSIDE RECORDS SUMMARY | 2017-08-27 16:25 | XMS REPORT ---
Author Author AIMEE LING Organization [employer] Address Unknown Phone Unavailable Care Team Providers Care De Icer Kit Assembler Name Role Phone AIMEE LING CP Unavailable [...] 50 mg orally 3 times a day prn. Must last 1 mo. April 29, 2014 1 Tablet Results No Known Results Summary Purpose [employer] Submission
--- OUTSIDE RECORDS SUMMARY | 2017-08-27 16:25 | XMS REPORT ---
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 10577807 Problem Muscle spasms of both lower extremities M62.838 Active 203763585 Problem Abdominal spasms R10.9 Active 47662926 Problem Lumbago with sciatica, left side M54.42 Active 190019245 Problem Insomnia, unspecified type G47.00 Active 573778816 Problem Bipolar depression F31.30 Active 49380952 Problem Insomnia 780.52 Active 641706298 Problem 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 37803947 Problem Benign essential hypertension I10 Active 1355988 Problem Anxiety F41.9 Active 92877975 Problem Hyponatremia 276.1 Active 73890657 Problem Gastroesophageal reflux disease, esophagitis presence not specified K21.9 Active 675634008 Problem RLS (restless legs syndrome) G25.81 Active 43410645 Problem Moderate persistent asthma without complication J45.40 Active 513204097 ALLERGIES Unknown Allergies SOCIAL HISTORY No smoking Hx information available PLAN OF CARE VITAL SIGNS MEDICATIONS Medication Instructions Dosage Frequency Start Date End Date Duration Status Zolpidem Tartrate 10 mg Orally Once a day must last 1 m 1 tablet at bedtime as needed Active RESULTS No Results PROCEDURES No Known procedures IMMUNIZATIONS No Known Immunizations
--- OUTSIDE RECORDS SUMMARY | 2017-08-27 16:25 | XMS REPORT ---
Author Author AIMEE LING Organization [employer] Address Unknown Phone Unavailable Care Team Providers Care Respiratory Physician Name Role Phone AIMEE LING CP Unavailable [...] RLS (restless legs syndrome) G25.81 Active Medications No Known Medications Results No Known Results Summary Purpose [employer] Submission
--- OUTSIDE RECORDS SUMMARY | 2017-08-27 16:25 | XMS REPORT ---
Author Author AIMEE LING Organization [employer] Address Unknown Phone Unavailable Care Team Providers Care Alcohol And Drug Counselor Name Role Phone AIMEE LING CP Unavailable [...] Instructions Start Date End Date Status Dosage Levothyroxine Sodium [facility] [address]-95 50 MCG Orally Once a day 1 tablet Results No Known Results Summary Purpose [employer] Submission
--- OUTSIDE RECORDS SUMMARY | 2017-08-27 16:25 | XMS REPORT ---
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
--- OUTSIDE RECORDS SUMMARY | 2017-08-27 16:25 | XMS REPORT ---
Author Author AIMEE LING Organization [employer] Address Unknown Phone Unavailable Care Team Providers Care Roll Changer Name Role Phone AIMEE LING CP Unavailable [...] Start Date End Date Status Dosage Clonazepam [facility] [address]-55 0.5 MG Orally Once a day at HS, PRN for RLS. Must last one month August 04, 2014 0.5 tablet Results No Known Results Summary Purpose [employer] Submission
--- OUTSIDE RECORDS SUMMARY | 2017-08-27 16:25 | XMS REPORT ---
Author Author LEYDA TOLENTINO [facility] Address [address] [place] [address] Care Team Providers Care Superintendent Refuse Disposal Name Role Phone LEYDA TOLENTINO Unavailable PROBLEMS Type Condition ICD9-CM Code HES51-WN Code Onset Dates Condition Status SNOMED Code Problem Allergic rhinitis, unspecified allergic rhinitis type J30.9 Active 56286974 Problem Bipolar depression F31.30 Active 42788413 Problem Lumbago with sciatica, left side M54.42 Active 218882109 Problem Other chronic pain G89.29 Active 62005843 Problem Overactive bladder N32.81 Active 591477442 Problem Insomnia, unspecified type G47.00 Active 762582743 Problem Abdominal spasms R10.9 Active 71942844 Problem Other specified hypothyroidism E03.8 Active 63094892 Problem Muscle spasms of both lower extremities M62.838 Active 044677068 Problem 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 44903220 Problem Hyponatremia 276.1 Active 28204274 Problem Insomnia 780.52 Active 121396975 Problem Anxiety F41.9 Active 81926879 Problem Gastroesophageal reflux disease, esophagitis presence not specified K21.9 Active 593098971 Problem RLS (restless legs syndrome) G25.81 Active 40644403 Problem Moderate persistent asthma without complication J45.40 Active 114504972 Problem Benign essential hypertension I10 Active 5787685 Problem Constipation, unspecified constipation type K59.00 Active 82837430 ALLERGIES Substance Reaction Event Type Date Status Lyrica hives Drug Allergy Oct, Active Advair Diskus facial swelling Drug Allergy Oct, Active ENCOUNTERS Encounter Location Date [facility] [address] [facility] [id number] [place] [id number] June, [facility] [address] [id number] [place] [id number] June, [facility] [address] [id number], [place] [id number] June, Anxiety F41.9 and Lumbago with sciatica, left side M54.42 [facility] [id number] [place] [address] [id number] May, Anxiety F41.9 and Lumbago with sciatica, left side M54.42 [facility]100[place] [id number] Apr, Dental examination Z01.20 [facility] [address] [facility] [id number] [place] [address] [id number] Apr, [facility] [place] [id number] [place] [address] [id number] Apr, RLS (restless legs syndrome) G25.81 ; Lumbago with sciatica, left side M54.42 and Anxiety F41.9 [facility] [address]00565[address] [id number] Mar, [facility] [place] [id number] [place] [address] [id number] Mar, Insomnia, unspecified type G47.00 [facility] [place] [id number] [place] [address] [id number] Mar, Insomnia, unspecified type G47.00 and RLS (restless legs syndrome) G25.81 [facility] [address] [place] [address] [id number], [place] [id number] Mar, [facility]100[place] [id number] Mar, Dental examination Z01.20 [facility] [address]00565100[place], [place] [address] Mar, [facility] [place] [address]00565100[place], [place] [id number] Mar, Lumbago with sciatica, left side M54.[address] [facility] [address] [place] [id number] [place] [address] Mar, [facility] [id number], [place] [id number] Mar, Insomnia, unspecified type G47.00 [facility] [place] [place] [id number], [place] [id number] Mar, [facility] [place] [place] [address] [place] [id number] [place] [address] [id number] Feb, Insomnia, unspecified type G47.00 [facility] [place] [address] [address] [id number] [place] [address] [id number] Feb, Lumbago with sciatica, left side M54.42 and Anxiety F41.9 [place] [address] [id number] [place] [address] [id number] Feb, [facility] [id number] [place] [address] [id number] Feb, RLS (restless legs syndrome) G25.81 ; Lumbago with sciatica, left side M54.42 ; Overactive bladder N32.81 and Anxiety F41.9 [facility] [id number], [place] 560[address] Jan, Overactive bladder N32.81 and Moderate persistent asthma without complication J45.40 [facility] [id number] [place] [address] [id number] Jan, Lumbago with sciatica, left side M54.42 and Insomnia, unspecified type G47.00 [facility] [id number] [place] [address] [id number] Jan, RLS (restless legs syndrome) G25.81 [facility] [id number] [place] [address] [id number] Dec, Overactive bladder N32.81 and Other chronic pain G89.29 [place] [address] [id number] [place] [address] [id number] Dec, Lumbago with sciatica, left side M54.42 ; Insomnia, unspecified type G47.00 and RLS (restless legs syndrome) G25.81 [facility] [id number] [place] [address] [id number] Nov, Overactive bladder N32.81 [facility] [place] [id number], [place] [id number] Nov, [facility] [place] [id number] [place] [address] [id number] Nov, Lumbago with sciatica, left side M54.42 ; Insomnia, unspecified type G47.00 and RLS (restless legs syndrome) G25.81 [facility] [id number], [place] [id number] Nov, Constipation, unspecified constipation type K59.00 ; Lumbago with sciatica , left side M54.42 ; Insomnia, unspecified type G47.00 ; Bloating R14.0 and Encounter for immunization Z23 [facility]005[address]100[place] [id number] Oct, Dental examination Z01.20 [facility] [place] [address] [place] [address] [id number] Oct, RLS (restless legs syndrome) G25.81 ; Lumbago with sciatica, left side M54.42 and Insomnia, unspecified type G47.00 [facility] [place] [address] [place] [address] [id number] Sep, Moderate persistent asthma without complication J45.40 [facility]00565100[place] [id number] Sep, Dental examination Z01.20 [facility] [place] [id number], [place] [id number] Sep, Lumbago with sciatica, left side M54.42 and Insomnia, unspecified type G47.00 [facility] [place] [address] [place] [address] [id number] Sep, RLS (restless legs syndrome) G25.81 [facility] [address]00565100[place] [address] Aug, [facility] [place] [id number] [place] [address] [id number] Aug, [facility] [id number] [place] [address] Aug Insomnia, unspecified type G47.00 [facility] [address] [facility] [id number], [place] [id number] Aug, Dental examination Z01.20 [facility] [address] [id number], [place] [id number] Aug, Vaginal discharge N89.8 [facility] [address] [id number], [place] [id number] Aug, RLS (restless legs syndrome) G25.81 [facility] [address] [id number], [place] [id number] Aug, Dental examination Z01.20 [facility] [address] [id number], [place] [id number] Jul, Dental examination Z01.20 [facility] [place] [address] [id number], [place] [id number] Jul, Lumbago with sciatica, left side M54.42 ; RLS (restless legs syndrome) G25.81 ; Moderate persistent asthma without complication J45.40 and Other specified hypothyroidism E03.8 [facility] [place] [address] [id number], [place] [id number] Jul, Insomnia, unspecified type G47.00 and Lumbago with sciatica, left side M54.42 [facility] [address] [id number], [place] [id number] Jul, Dental examination Z01.20 [facility] [address] [address] [id number], [place] [id number] May, Dental examination Z01.20 and Dental caries K02.9 [facility] [address] [id number], [place] [id number] May, [facility] [address] [id number], [place] [id number] May, RLS (restless legs syndrome) G25.81 [facility] [address] [id number], [place] [id number] May, Lumbago with sciatica, left side M54.42 ; Insomnia, unspecified type G47.00 and RLS (restless legs syndrome) G25.81 [facility] [id number], [place] [id number] Apr, Muscle spasms of both lower extremities M62.838 ; Constipation, unspecified constipation type K59.00 and Insomnia, unspecified type G47.00 [facility] [id number], [place] [id number] Apr, [facility] [place] [id number] [place] [address] [id number] Apr, Anxiety F41.9 and Lumbago with sciatica, left side M54.42 [facility] [address]00565100[place] [address] 27 Mar, 2016 Encounter for dental examination and cleaning without abnormal findings Z01.20 [facility] [address]00565100[place], [place] [id number] Mar, Muscle cramp, nocturnal R25.2 [facility] [place] [address] [place] [address] [id number] Mar, 2016 RLS (restless legs syndrome) G25.81 ; Anxiety F41.9 ; Lumbago with sciatica, left side M54.42 ; Insomnia, unspecified type G47.[address].2 [facility] [address]00565100[place], [place] [address] Mar, [address]00565100[place], [place] [id number] Feb, [address]00565100[place], [place] [id number] Feb, [address] [place] [address] [id number] Jan, [address] [place] [address] [id number] Jan, Moderate persistent asthma without complication J45.40 [place] 01884[place], [place] [id number] Jan, [facility] [address] [id number], [place] [id number] Jan, [facility] [address] [id number], [place] [id number] Jan, [facility] [address] [id number], [place] [id number] Jan, [facility] [address] [id number], [place] [id number] Dec, [facility] [address] [facility] [id number], [place] [address] Dec, [facility] [address] [id number], [place] [id number] Nov, [facility] [address] [id number], [place] [id number] Nov, [address] [id number], [place] 783723277 Nov, Dental examination Z01.20 [facility] [address] [id number], [place] [id number] Nov, Bipolar depression F31.30 [facility] [address] [id number], [place] 758127564 Nov, Lumbago with sciatica, left side M54.42 ; Allergic rhinitis, unspecified allergic rhinitis type J30.9 ; Bipolar depression F31.30 ; Moderate persistent asthma without complication J45.40 ; Encounter for immunization Z23 ; Abdominal spasms R10.9 and Benign essential hypertension I10 [facility] [address] [id number], [place] [id number] Nov, [facility] [address] [id number], [place] [id number] Oct, [facility] [address] [id number], [place] [id number] Oct, [facility] [address] [id number], [place] [id number] Sep, [facility] [address] [id number], [place] [id number] Sep, [facility] [place] [address] [facility] [id number], [place] [id number] Sep, [facility] [address] [id number] [place] [address] Sep [facility] [address] [id number], [place] [id number] Aug, [facility] [address] [id number], [place] [id number] Aug, Dental examination Z01.20 [facility] [address] [id number], [place] [id number] Aug, [facility] [address] [id number], [place] [id number] Aug, [facility] [address] [facility] [id number], [place] [id number] Jul, Allergic rhinitis, unspecified allergic rhinitis type J30.9 ; RLS ( restless legs syndrome) G25.81 ; Lumbago with sciatica, left side M54.42 and Other chronic pain G89.29 [facility] [address] [facility] [id number], [place] [id number] Jul, Allergic rhinitis, unspecified allergic rhinitis type J30.9 and RLS ( restless legs syndrome) G25.81 [facility] [address] [id number], [place] [id number] Jul, [facility] [address] [place] [id number], [place] [id number] June, Hypo-osmolality and hyponatremia E87.1 and Benign essential hypertension I10 [facility] [address] [id number], [place] [id number] June, [facility] [address] [facility] [id number], [place] 903330001 June, Moderate persistent asthma without complication J45.40 ; RLS (restless legs syndrome) G25.81 ; Benign essential hypertension I10 ; Anxiety F41.9 and Constipation, unspecified constipation type K59.00 [facility] [address] [address] [id number], [place] [id number] June, Encounter for dental examination and cleaning without abnormal findings Z01.20 [facility] [facility] [id number] [place] [id number] June, [facility] [place] [address] [id number], [place] [id number] June, [facility] [place] [address] [id number], [place] [id number] June, [facility] [place] [address] [id number] [place] [id number] May, [facility] [place] [address] [id number] [place] [id number] May, [facility] [place] [address] [id number] [place] [id number] May, [facility] [place] [address] [id number], [place] [id number] May, [facility] [place] [id number] [place] [address] [id number] Apr, [facility] [place] [address] [id number], [place] [id number] Apr, Anxiety F41.9 [facility] [place] [address] [id number] [place] [address] [id number] Apr, [facility] [place] [address] [id number], [place] [id number] Mar, [facility] [address] [id number], [place] [id number] Mar, [facility] [address] [id number], [place] [id number] Mar, [facility] [address] [id number], [place] 417782841 Mar, RLS (restless legs syndrome) G25.81 ; Anxiety F41.9 and Moderate persistent asthma without complication J45.40 [facility] [place] [address] [id number], [place] [id number] Mar, [facility] [address] [id number], [place] [id number] Mar, [facility] [address] [id number], [place] [id number] Feb, [facility] [address] [id number], [place] [id number] Feb, [facility] [id number] [place] [address] [id number] Feb, [facility] [address] [id number], [place] [id number] Feb, Encounter for dental examination Z01.20 [facility] [id number] [place] [address] [id number] Feb, [facility] [id number] [place] [address] [id number] Jan, [facility] [address] [place] [id number] [place] [address] [id number] Jan, Benign essential hypertension I10 [facility] [address] [place] [address] [id number] [place] [address] [id number] Jan, RLS (restless legs syndrome) G25.81 and Gastroesophageal reflux disease, esophagitis presence not specified K21.9 [facility] [id number], [place] [id number] Jan, [facility] [address] [place] [id number] [place] [address] [id number] Jan, [facility] [address] [address] [id number] [place] [address] [id number] Dec, Anxiety F41.9 ; Benign essential hypertension I10 and RLS (restless legs syndrome) G25.81 [facility] [id number], [place] [id number] Dec, RLS (restless legs syndrome) G25.81 ; Esophageal reflux 530.81 and Anxiety F41.9 [facility] [address] [id number], [place] [id number] Dec, [facility] [id number] [place] [address] [id number] Nov, Anxiety F41.9 [facility] [id number] [place] [address] [id number] Nov, Encounter for immunization Z23 ; Anxiety F41.9 ; Benign essential hypertension I10 ; RLS (restless legs syndrome) G25.[address] [facility] [address]00565100[place], [place] [address] Nov, [facility] [id number], [place] [id number] Nov, [facility] [address] [place] [address] [id number], [place] [id number] Nov, [facility] [id number] [place] [address] [id number] Nov, [address] [place] [address] [id number] Nov, [facility] [address]00565100[place], [place] [id number] Oct, [place] [id number] [place] [address] [id number] Oct, [facility] [address] [place] [address] [id number] Oct, [place] [id number] [place] [address] [id number] Oct, Asthma, unspecified, unspecified status 493.90 ; Esophageal reflux 530.81 and Essential hypertension, benign 401.1 [facility] [address] [place] [address] [id number] Oct, [place] [id number] [place] [address] [id number] Oct, [facility] [address] [place] [address] [id number] Oct, [address] [place] [address] [id number] Sep, [facility] [address] [place] [id number] [place] [address] [id number] Sep, Esophageal reflux 530.81 ; Insomnia 780.52 and Essential hypertension, benign 401.1 [place] [id number] [place] [address] [id number] Sep, [facility] [address] [id number], [place] [id number] Sep, [facility] [address] [id number] [place] [id number] Sep, [facility] [address] [id number] [place] [id number] Sep, [facility] [address] [id number], [place] [id number] Sep, [facility] [address] [id number] [place] [id number] Sep, [facility] [address] [id number] [place] [id number] Sep, [facility] [address] [id number] [place] [id number] Sep, Essential hypertension, benign 401.1 ; Hyponatremia 276.1 and 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 [facility] [address] [id number], [place] [id number] Sep, [facility] [address] [id number], [place] [id number] Aug, [facility] [address] [id number], [place] [id number] Aug, [facility] [address] [id number], [place] [id number] Jul, [facility] [address] [id number], [place] [id number] Jul, [facility] [address] [id number], [place] [id number] Jul, [facility] [address] [id number], [place] [id number] Jul, [facility] [address] [id number], [place] [id number] Jul, [facility] [address] [id number], [place] [id number] Jul, Insomnia 780.52 [facility] [address] [id number], [place] 483192275 June, Muscle stiffness 728.9 and Insomnia 780.52 [facility] [address] [id number] [place] [id number] June, [facility] [address] [id number] [place] [id number] June, [facility] [address] [id number] [place] [id number] June, [facility] [address] [id number] [place] [id number] June, [facility] [address] [facility] [id number], [place] [id number] May, [facility] [address] [facility] [id number], [place] [address]- [address] May, [facility] [address]00565100[place], [place] [address] May, [facility] [address] [id number], [place] [id number] Apr, [facility] [address]00565100[place], [place] [address]- [address] Apr, [facility] [address] [id number], [place] [id number] Apr, [facility] [address]00565100[place], [place] [address]- [address] Apr, [facility] [address]00565100[place], [place] [address]- [address] Apr, [facility] [address]00565100[place], [place] [address]- [address] Apr, [facility] [address] [id number], [place] [id number] Apr, [facility] [address]00565100[place], [place] [address]- [address] Apr, [facility] [address] [id number] [id number] Mar, [facility] [place] [facility] [id number], [place] [address] Mar, [facility] [address] [id number] [place] [id number] Mar, [facility] [place] [facility] [address] [facility] [id number] [place] [address] Mar, [facility] [address] [id number] [place] [id number] Mar, [facility] [place] [facility] [address] [facility] [id number] [place] [address] Mar, [facility] [place] [facility] [address] [facility] [id number], [place] [address] Mar, [facility] [address] [id number] [place] [id number] Feb, [facility] [place] [facility] [id number], [place] [address] Feb, [facility] [address] [id number] [place] [id number] Feb, [facility] [address] [id number][place] [id number] Feb, [facility] [address] [id number] [place] [id number] Feb, [facility] [place] [facility] [id number], [place] [address] Feb, [facility] [place] [facility] [address] [id number], [place] [address] Feb, [facility] [place] [facility] [address] [facility] [id number], [place] [address] Feb, [facility] [address] [id number] [place] [id number] Feb, [facility] [place] [facility] [address] [facility] [id number], [place] [address] Feb, [facility] [address] [facility] [id number] [place] [id number] Feb, [facility] [place] [facility] [address] [facility] [id number], [place] [address] Feb, [facility] [id number], [place] [address] Jan, [facility] [address] [id number] [id number] Jan, [facility] [id number], [place] [address] Jan, [facility] [id number] [id number] Jan, [facility] [id number], [place] [address] Jan, [facility] [id number][place] [id number] Jan, [facility] [facility] [id number], [place] [address] Jan, [facility] [id number] [address] Jan, [facility] [address] [id number] [id number] Jan, [facility] [id number] [address] Jan, [facility] [address] [id number], [place] [address] June, IMMUNIZATIONS No Known Immunizations SOCIAL HISTORY Never Assessed REASON FOR VISIT restorative PLAN OF CARE Activity Details Follow Up prn Reason:restorative VITAL SIGNS Height 63 in 2016-10-23 Blood pressure systolic 163 mmHg 2016-10-23 Blood pressure diastolic 93 mmHg 2016-10-23 MEDICATIONS Medication Instructions Dosage Frequency Start Date End Date Duration Status Tramadol HCl 50 mg Orally 2 times a day must last 1 month 1 tablet Active Hydrochlorothiazide 25 MG Orally Once a day 1 tablet 24h Active Gabapentin 800 MG Orally Once a day 1 tablet 24h Active HydrOXYzine HCl 25 MG TAKE (1) TABLET BY MOUTH 3 TIMES DAILY. Active Dicyclomine HCl 10 mg Orally 3 times a day before meals 1 tablet Nov, Active Zyprexa 20 MG TAKE ONE (1) TABLET BY MOUTH DAILY... Active Zolpidem Tartrate 10 mg Orally Once a day must last 1 m 1 tablet at bedtime as needed Active Flonase 50 MCG/ACT Nasally 2 times a day 1 spray in each nostril 12h Active ProAir HFA 108 (90 Base) MCG/ACT Inhalation 4 times a day as needed 2 puffs 0 days Active Imdur 30 MG Orally Once a day 1 tablet 24h Sep, Active Zyrtec Allergy 10 mg Orally Once a day 1 tablet as needed 24h 90 Active Gabapentin 300 MG TAKE (1) TABLET BY MOUTH IN THE MORNING AND (1) TABLET IN THE AFTERNOON. Active Singulair 10 MG Orally Once a day 1 tablet in the evening 24h Active Lamictal 100 MG TAKE ONE (1) TABLET BY MOUTH DAILY... Active Patanol 0.1 % Ophthalmic Twice a day 1 drop into affected eye 12h Jul, Active Ibuprofen 800 MG ...TAKE ONE (1) TABLET BY MOUTH THREE (3) TIMES DAILY NEEDED... Active Prilosec 40 mg Orally Once a day 1 capsule 24h Active Symbicort 80-4.5 MCG/ACT Inhalation Twice a day 2 puffs 12h Active Synthroid 50 MCG TAKE ONE (1) TABLET BY MOUTH DAILY... Active Premarin 0.9 MG TAKE ONE (1) TABLET BY MOUTH ONCE DAILY. 90 Active Levothyroxine Sodium 50 MCG TAKE ONE (1) TABLET BY MOUTH DAILY... Active Prilosec 40 mg Orally Once a day 1 capsule 24h Nov, Active Clonazepam 0.5 MG Orally Once a day at HS, PRN for RLS. Must last one month 1.5 tablet Jul, 0 days Active RESULTS No Results PROCEDURES Procedure Date Ordered Result Body Site RESIN COMPOS - 3 SURFACES POSTERIOR Oct 23, 2016 INSTRUCTIONS MEDICATIONS ADMINISTERED No Known Medications MEDICAL [...]
--- OUTSIDE RECORDS SUMMARY | 2017-08-27 16:26 | XMS REPORT ---
Author Author AIMEE LING [facility] Address [address] [place] [address] Care Team Providers Care Germination Testing Manager Name Role Phone AIMEE LING Unavailable PROBLEMS Type Condition ICD9-CM Code DSA94-SS Code Onset Dates Condition Status SNOMED Code Problem Anxiety F41.9 Active 13915791 Problem Moderate persistent asthma without complication J45.40 Active 481456670 Problem Gastroesophageal reflux disease, esophagitis presence not specified K21.9 Active 742966317 Problem Bipolar depression F31.30 Active 82121027 Problem Abdominal spasms R10.9 Active 15979741 Problem Constipation, unspecified constipation type K59.00 Active 67614445 Problem Encounter for dental examination and cleaning without abnormal findings Z01.20 Active 669193793 Problem Lumbago with sciatica, left side M54.42 Active 155801288 Problem Allergic rhinitis, unspecified allergic rhinitis type J30.9 Active 87410937 Problem 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 91425415 Problem Hyponatremia 276.1 Active 08608854 Problem Bipolar disorder, unspecified 296.80 Active 61804800 Problem RLS (restless legs syndrome) G25.81 Active 66279813 Problem Insomnia 780.52 Active 857094000 Problem Benign essential hypertension I10 Active 5561082 ALLERGIES Unknown Allergies SOCIAL HISTORY No smoking Hx information available PLAN OF CARE VITAL SIGNS MEDICATIONS Unknown Medications RESULTS No Results PROCEDURES No Known procedures IMMUNIZATIONS No Known Immunizations
--- OUTSIDE RECORDS SUMMARY | 2017-08-27 16:26 | XMS REPORT ---
Author Author AIMEE LING Organization [employer] Address Unknown Phone Unavailable Care Team Providers Care Bacteriology Technician Name Role Phone AIMEE LING CP Unavailable [...]
--- OUTSIDE RECORDS SUMMARY | 2017-08-27 16:26 | XMS REPORT ---
Author Author LEYDA TOLENTINO [facility] Address [address] [place] [address] Care Team Providers Care Trip Motor Operator Name Role Phone LEYDA TOLENTINO Unavailable PROBLEMS Type Condition ICD9-CM Code CDL99-WR Code Onset Dates Condition Status SNOMED Code Problem Allergic rhinitis, unspecified allergic rhinitis type J30.9 Active 52557635 Problem Bipolar depression F31.30 Active 63696045 Problem Lumbago with sciatica, left side M54.42 Active 453953389 Problem Other chronic pain G89.29 Active 15025357 Problem Overactive bladder N32.81 Active 502806750 Problem Insomnia, unspecified type G47.00 Active 952950647 Problem Abdominal spasms R10.9 Active 64050123 Problem Other specified hypothyroidism E03.8 Active 43409416 Problem Muscle spasms of both lower extremities M62.838 Active 423480583 Problem 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 29738023 Problem Hyponatremia 276.1 Active 63529095 Problem Insomnia 780.52 Active 417128038 Problem Anxiety F41.9 Active 66835174 Problem Gastroesophageal reflux disease, esophagitis presence not specified K21.9 Active 973202526 Problem RLS (restless legs syndrome) G25.81 Active 58043200 Problem Moderate persistent asthma without complication J45.40 Active 052203742 Problem Benign essential hypertension I10 Active 5491405 Problem Constipation, unspecified constipation type K59.00 Active 62840115 ALLERGIES Substance Reaction Event Type Date Status Lyrica hives Drug Allergy Sep, Active Advair Diskus facial swelling Drug Allergy Sep, Active ENCOUNTERS Encounter Location Date Diagnosis [facility] [address] [facility] [id number] [place] [id number] June, [facility] [address] [id number] [place] [id number] June, [facility] [address] [id number], [place] [id number] May, Anxiety F41.9 and Lumbago with sciatica, left side M54.42 [id number], [place] [id number] Apr, Dental examination Z01.20 [facility] [id number] [id number] Apr, [facility] [place] [id number] [place] [address] [id number] Apr, RLS (restless legs syndrome) G25.81 ; Lumbago with sciatica, left side M54.42 and Anxiety F41.9 [facility] [place] [id number] [place] [address] [id number] Mar, [facility] [place] [id number] [place] [address] [id number] Mar, Insomnia, unspecified type G47.00 [facility] [place] [id number] [place] [address] [id number] Mar, Insomnia, unspecified type G47.00 and RLS (restless legs syndrome) G25.81 [facility] [address]on[address] [place] [id number] [id number] Mar, [facility] [place] [address] [id number], [place] [id number] Mar, Dental examination Z01.20 [facility] [address] [place] [phone] Mar, [facility] [address] [place] [address] [id number] Mar, Lumbago with sciatica, left side M54.42 and Anxiety F41.9 [facility] [id number] [place] [phone] Mar, [facility] [id number], [place] [phone] Mar, Insomnia, unspecified type G47.00 [facility] [address] [id number], [place] [id number] Mar, [facility] [address] [id number] [place] [address] [id number] Feb, Insomnia, unspecified type G47.00 [facility] [address] [id number], [place] [phone] Feb, Lumbago with sciatica, left side M54.42 and Anxiety F41.9 [facility] [address] [id number] [place] [address] [id number] Feb, [facility] [id number] [place] [address] [id number] Feb, RLS (restless legs syndrome) G25.81 ; Lumbago with sciatica, left side M54.42 ; Overactive bladder N32.81 and Anxiety F41.9 [facility] [id number] [place] [address] [id number] Jan, Overactive bladder N32.81 and Moderate persistent asthma without complication J45.40 [facility] [id number] [place] [address] [id number] Jan, Lumbago with sciatica, left side M54.42 and Insomnia, unspecified type G47.00 [facility] [id number] [place] [address] [id number] Jan, RLS (restless legs syndrome) G25.81 [facility] [id number] [place] [address] [id number] Dec, Overactive bladder N32.81 and Other chronic pain G89.29 [facility] [id number] [place] [address] [id number] Dec, Lumbago with sciatica, left side M54.42 ; Insomnia, unspecified type G47.00 and RLS (restless legs syndrome) G25.81 [facility] [id number] [place] [address] [id number] Nov, Overactive bladder N32.81 [facility] [id number] [place] [address] [id number] Nov, [facility] [address] [id number], [place] [id number] Nov, Lumbago with sciatica, left side M54.42 ; Insomnia, unspecified type G47.00 and RLS (restless legs syndrome) G25.81 [facility] [address] [facility] [id number], [place] [id number] Nov, Constipation, unspecified constipation type K59.00 ; Lumbago with sciatica , left side M54.42 ; Insomnia, unspecified type G47.00 ; Bloating R14.0 and Encounter for immunization Z23 [facility] [address] [facility] [address] [id number], [place] [id number] Oct, Dental examination Z01.20 [facility] [place] [id number], [place] [id number] Oct, RLS (restless legs syndrome) G25.81 ; Lumbago with sciatica, left side M54.42 and Insomnia, unspecified type G47.00 [facility] [place] [id number], [place] [id number] Sep, Moderate persistent asthma without complication J45.40 [facility] [address] [facility] [address] [id number], [place] 949751737 Sep, Dental examination Z01.20 [facility] [id number], [place] [id number] Sep, Lumbago with sciatica, left side M54.42 and Insomnia, unspecified type G47.00 [facility] [place] [id number], [place] [id number] Sep, RLS (restless legs syndrome) G25.81 [facility] [address] [facility] [id number] [address] Aug, [facility] [place] [id number], [place] [id number] Aug, [facility] [place] [address] [place] [address] [id number] [place] [address] Aug Insomnia, unspecified type G47.[address] [facility] [address] [id number], [place] 611099239 Aug, Dental examination Z01.20 [facility] [address] [id number], [place] [id number] Aug, Vaginal discharge N89.8 [facility] [address] [id number], [place] [phone] Aug, RLS (restless legs syndrome) G25.81 [facility] [address] [id number], [place] [id number] Aug, Dental examination Z01.20 [facility] [address] [id number], [place] [id number] Jul, Dental examination Z01.20 [facility] [id number], [place] [id number] Jul, Lumbago with sciatica, left side M54.42 ; RLS (restless legs syndrome) G25.81 ; Moderate persistent asthma without complication J45.40 and Other specified hypothyroidism E03.8 [facility] [address] [id number], [place] [id number] Jul, Insomnia, unspecified type G47.00 and Lumbago with sciatica, left side M54.42 [facility] [address] [id number], [place] 998358858 Jul, Dental examination Z01.[address] [id number], [place] 176234986 May, Dental examination Z01.20 and Dental caries K02.9 [facility] [address] [id number], [place] [phone] May, [facility] [address] [id number], [place] [id number] May, RLS (restless legs syndrome) G25.81 [facility] [address] [id number], [place] [id number] May, Lumbago with sciatica, left side M54.42 ; Insomnia, unspecified type G47.00 and RLS (restless legs syndrome) G25.81 [facility] [id number], [place] [id number] Apr, Muscle spasms of both lower extremities M62.838 ; Constipation, unspecified constipation type K59.00 and Insomnia, unspecified type G47.00 [facility] [id number], [place] [id number] Apr, [facility] [place] [id number] [place] [address] [id number] Apr, Anxiety F41.9 and Lumbago with sciatica, left side M54.42 [facility] [address]00565100[place] [id number] 27 Mar, 2016 Encounter for dental examination and cleaning without abnormal findings Z01.20 [facility] [id number] [place] [address] [id number] 20 Mar, 2016 Muscle cramp, nocturnal R25.2 [place] [id number] [place] [address] [id number] 14 Mar, 2016 RLS (restless legs syndrome) G25.81 ; Anxiety F41.9 ; Lumbago with sciatica, left side M54.42 ; Insomnia, unspecified type G47.00 and Muscle cramps R25.2 [facility] [address]00565100[place] [address] 06 Mar, 2016 [facility] [id number], [place] [id number] Feb, [facility] [id number] [place] [address] [id number] Feb, [facility] [id number] [place] [address] [id number] Jan, [place] [id number] [place] [address] [id number] Jan, Moderate persistent asthma without complication J45.40 [facility] [id number] [place] [address] [id number] Jan, [place] [id number] [place] [address] [id number] Jan, [facility] [address] [id number], [place] [id number] Jan, [facility] [address] [id number], [place] [id number] Jan, [facility] [address] [id number], [place] [id number] Dec, [facility] [address] [facility] [id number] [place] [address] Dec, [facility] [address] [id number], [place] [id number] Nov, [facility] [address] [id number], [place] [id number] Nov, [facility] [address] [address] [address] [facility] [address] [id number], [place] [id number] Nov, Dental examination Z01.20 [facility] [id number], [place] 139519774 Nov, Bipolar depression F31.30 [facility] [id number], [place] [id number] Nov, Lumbago with sciatica, left side M54.42 ; Allergic rhinitis, unspecified allergic rhinitis type J30.9 ; Bipolar depression F31.30 ; Moderate persistent asthma without complication J45.40 ; Encounter for immunization Z23 ; Abdominal spasms R10.9 and Benign essential hypertension I10 [facility] [address] [id number], [place] [id number] Nov, [facility] [address] [id number], [place] [id number] Oct, [facility] [address] [id number], [place] [id number] Oct, [facility] [place] [address] [id number], [place] [id number] Sep, [facility] [address] [id number], [place] [id number] Sep, [facility] [place] [address] [id number], [place] [phone] Sep, [facility] [id number] [place] [address] Sep [facility] [address] [facility] [id number], [place] [id number] Aug, [facility] [address] [id number] [place] [id number] Aug, Dental examination Z01.20 [facility] [address] [facility] [id number], [place] [id number] Aug, [address] [id number], [place] [id number] Aug, [facility] [address] [id number], [place] [id number] Jul, Allergic rhinitis, unspecified allergic rhinitis type J30.9 ; RLS ( restless legs syndrome) G25.81 ; Lumbago with sciatica, left side M54.42 and Other chronic pain G89.29 [facility] [address] [id number], [place] [id number] Jul, Allergic rhinitis, unspecified allergic rhinitis type J30.9 and RLS ( restless legs syndrome) G25.81 [facility] [address] [facility] [id number], [place] [id number] Jul, [facility] [id number], [place] [id number] June, Hypo-osmolality and hyponatremia E87.1 and Benign essential hypertension I10 [facility] [address] [facility] [id number], [place] [id number] June, [facility] [id number], [place] 695271851 June, Moderate persistent asthma without complication J45.40 ; RLS (restless legs syndrome) G25.81 ; Benign essential hypertension I10 ; Anxiety F41.9 and Constipation, unspecified constipation type K59.00 [facility] [address] [facility] [address] [id number], [place] [id number] June, Encounter for dental examination and cleaning without abnormal findings Z01.20 [facility] [place] [address] [place] [address] AVE [id number], [place] [id number] June, [facility] [place] [address] [id number] [place] [id number] June, [facility] [place] [address] [id number] [place] [id number] June, [facility] [place] [address] [id number] [place] [id number] May, [facility] [place] [address] [id number] [place] [id number] May, [facility] [place] [address] [id number] [place] [id number] May, [facility] [place] [address] [id number] [place] [id number] May, [facility] [place] [address] [id number] [place] [id number] Apr, [facility] [place] [address] [id number] [place] 790872422 Apr, Anxiety F41.9 [facility] [place] [address] [id number] [place] [id number] Apr, [facility] [place] [address] [id number] [place] [id number] Mar, [facility] [place] [address] [id number] [place] [id number] Mar, [facility] [address] [id number] [place] [id number] Mar, [facility] [place] [address] [id number] [place] [id number] Mar, RLS (restless legs syndrome) G25.81 ; Anxiety F41.9 and Moderate persistent asthma without complication J45.40 [facility] [place] [address] [id number] [place] [id number] Mar, [facility] [place] [address] [id number] [place] [id number] Mar, [facility] [place] [address] [id number] [place] [id number] Feb, [facility] [place] [address] [id number] [place] [id number] Feb, [facility] [address] [id number], [place] [id number] Feb, [facility] [address] [place], [place] 28[address]00565100[place] [id number] Feb, Encounter for dental examination Z01.20 [facility] [id number], [place] [id number] Feb, [facility] [id number] [place] [address] [id number] Jan, [facility] [id number] [place] [address] [id number] Jan, Benign essential hypertension I10 [facility] [id number] [place] [address] [id number] Jan, RLS (restless legs syndrome) G25.81 and Gastroesophageal reflux disease, esophagitis presence not specified K21.9 [facility] [id number] [place] [address] [id number] Jan, [facility] [id number] [place] [address] [id number] Jan, [facility] [id number] [place] [address] [id number] Dec, Anxiety F41.9 ; Benign essential hypertension I10 and RLS (restless legs syndrome) G25.81 [facility] [id number], [place] 946222733 Dec, RLS (restless legs syndrome) G25.81 ; Esophageal reflux 530.81 and Anxiety F41.9 [facility] [address] [facility] [id number], [place] [id number] Dec, [facility] [address] [id number], [place] [id number] Nov, Anxiety F41.9 [place] [id number], [place] [id number] Nov, Anxiety F41.9 ; Encounter for immunization Z23 ; Benign essential hypertension I10 ; RLS (restless legs syndrome) G25.81 and Rhinitis J31.0 [facility] [address]00565100[place] [address] Nov, [facility] [place] [address] [id number], [place] [id number] Nov, [facility] [address] [id number], [place] [id number] Nov, [facility] [address] [id number], [place] [id number] Nov, [facility] [address] [id number], [place] [id number] Nov, [facility] [address] [facility] [address] [id number], [place] [id number] Oct, [facility] [address] [id number], [place] [id number] Oct, [facility] [address] [id number], [place] [id number] Oct, [facility] [id number] [place] [address] [id number] Oct, Esophageal reflux 530.81 ; Asthma, unspecified, unspecified status 493.90 and Essential hypertension, benign 401.1 [facility] [id number] [place] [address] [id number] Oct, [facility] [id number], [place] [id number] Oct, [facility] [address] [id number], [place] [id number] Oct, [facility] [id number], [place] 480942073 Sep, [facility] [address] [id number], [place] [id number] Sep, Esophageal reflux 530.81 ; Insomnia 780.52 and Essential hypertension, benign 401.1 [facility] [id number], [place] [id number] Sep, [facility] [address] [id number], [place] [id number] Sep, [facility] [id number] [place] [address] [id number] Sep, [facility] [place] [address] [id number], [place] [phone] Sep, [facility] [place] [address] [id number] [place] [address] [id number] Sep, [facility] [place] [address] [id number], [place] [id number] Sep, [facility] [place] [address] [id number] [place] [address] [id number] Sep, [facility] [place] [address] [id number] [place] [id number] Sep, Essential hypertension, benign 401.1 ; Hyponatremia 276.1 and 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 [facility] [place] [address] [id number], [place] [id number] Sep, [facility] [place] [id number] [place] [address] [id number] Aug, [facility] [place] [address] [id number] [place] [address] [id number] Aug, [facility] [place] [address] [id number] [place] [address] [id number] Jul, [facility] [place] [address] [id number] [place] [address] [id number] Jul, [facility] [place] [address] [id number] [place] [address] [id number] Jul, [facility] [place] [address] [id number], [place] [id number] Jul, [facility] [place] [address] [id number], [place] [id number] Jul, [facility] [place] [address] [id number], [place] [id number] Jul, Insomnia 780.52 [facility] [place] [address] [id number] [place] [address] [id number] June, Muscle stiffness 728.9 and Insomnia 780.52 [facility] [place] [address] [id number], [place] [id number] June, [facility] [place] [address] [address] [id number] [place] [address] [id number] June, [facility] [place] [address] [id number] [place] [id number] June, [facility] [place] [address] [id number] [place] [id number] June, [facility] [place] [address] [id number] [place] [id number] May, [facility] [address] [facility] [id number] [address]- [address] May, [facility] [address] [facility] [id number] [address]- [address]46 May, [facility] [place] [address] [facility] [id number] [place] [id number] Apr, [facility] [id number] [address] Apr, [facility] [address] [facility] [id number] [place] [id number] Apr, [facility] [id number] [address] Apr, [facility] [id number] [address] Apr, [facility] [id number] [address] Apr, [facility] [address] [facility] [id number][place] [id number] Apr, [facility] [address] [facility] [id number] [address] Apr, [facility] [address] [facility] [id number] [place] [id number] Mar, [facility] [address] [id number] [address] Mar, [facility] [address] [facility] [id number] [place] [id number] Mar, [facility] [id number] [address] Mar, [facility] [address] [id number] [place] [id number] Mar, [facility] [address] [facility] [id number] [address] Mar, [facility] [address] [facility] [id number] [place] [address] Mar, [facility] [address] [id number][place] [id number] Feb, [facility] [address] [id number] [address] Feb, [facility] [address] [id number][place] [id number] Feb, [facility] [address] [id number][place] [id number] Feb, [facility] [address] [id number][place] [id number] Feb, [facility] [id number] [address] Feb, [facility] [id number] [address] Feb, [facility] [address] [facility] [id number] [address] Feb, [facility] [id number][place] [id number] Feb, [facility] [address] [facility] [id number] [address] Feb, [facility] [address] [facility] [id number] [id number] Feb, [facility] [address] [facility] [id number] [place] [id number] Feb, [facility] [address] [facility] [id number] [place] [address] Jan, [facility] [address] [id number][place] [id number] Jan, [facility] [id number] [address] Jan, [facility] [address] [id number] [id number] Jan, [facility] [id number] [address] Jan, [facility] [id number][place] [id number] Jan, [facility] [id number] [address] Jan, [facility] [id number] [address] Jan, [facility] [address] [id number] [id number] Jan, [facility] [id number] [address] Jan, [facility] [id number] [address] June, IMMUNIZATIONS No Known Immunizations SOCIAL HISTORY Never Assessed REASON FOR VISIT restorative PLAN OF CARE Activity Details Follow Up prn Reason:fillings- 1 hour VITAL SIGNS Height 63 in 2016-09-25 Blood pressure systolic 167 mmHg 2016-09-25 Blood pressure diastolic 93 mmHg 2016-09-25 MEDICATIONS Medication Instructions Dosage Frequency Start Date End Date Duration Status Tramadol HCl 50 mg Orally 2 times a day must last 1 month 1 tablet Active Zyrtec Allergy 10 mg Orally Once a day 1 tablet as needed 24h 90 Active Ibuprofen 800 MG Orally Three times a day as needed 1 tablet Active Prilosec 40 mg Orally Once a day 1 capsule 24h Active Imdur 30 MG Orally Once a day 1 tablet 24h Sep, Active Hydrochlorothiazide 25 MG Orally Once a day 1 tablet 24h Active Singulair 10 MG Orally Once a day 1 tablet in the evening 24h Active Flonase 50 MCG/ACT Nasally 2 times a day 1 spray in each nostril 12h Active Gabapentin 800 MG Orally Once a day 1 tablet 24h Active Dicyclomine HCl 10 mg Orally 3 times a day before meals 1 tablet Nov, Active Synthroid 50 MCG TAKE ONE (1) TABLET BY MOUTH DAILY... Active Symbicort 80-4.5 MCG/ACT Inhalation Twice a day 2 puffs 12h Active ProAir HFA 108 (90 Base) MCG/ACT INHALE (2) PUFFS BY MOUTH (4) TIMES DAILY NEEDED FOR SHORTNESS OF BREATH/WHEEZING. Active Lamictal 100 MG TAKE ONE (1) TABLET BY MOUTH DAILY... Active Patanol 0.1 % Ophthalmic Twice a day 1 drop into affected eye 12h 20 Jul, 2015 Active Zolpidem Tartrate 10 mg Orally Once a day must last 1 m 1 tablet at bedtime as needed Active HydrOXYzine HCl 25 MG TAKE (1) TABLET BY MOUTH 3 TIMES DAILY. Active Zyprexa 20 MG TAKE ONE (1) TABLET BY MOUTH DAILY... Active Clonazepam 0.5 MG Orally Once a day at HS, PRN for RLS. Must last one month 1.5 tablet Jul, Active Premarin 0.9 MG TAKE ONE (1) TABLET BY MOUTH ONCE DAILY. 90 Active Levothyroxine Sodium 50 MCG TAKE ONE (1) TABLET BY MOUTH DAILY... Active Prilosec 40 mg Orally Once a day 1 capsule 24h Nov, Active Gabapentin 300 MG TAKE (1) TABLET BY MOUTH IN THE MORNING AND (1) TABLET IN THE AFTERNOON. Active RESULTS No Results PROCEDURES Procedure Date Ordered Result Body Site RESIN COMPOS - 3 SURFACES POSTERIOR Sep 25, 2016 Billing Notes on claim Sep 25, 2016 INSTRUCTIONS MEDICATIONS ADMINISTERED No Known Medications [...] Surgical History Esophagus stretched 2017 Hospitalization History [facility] for hyponatremia, change in mental status, angioedema 09/2014
--- OUTSIDE RECORDS SUMMARY | 2017-08-27 16:26 | XMS REPORT ---
Author Author LEYDA TOLENTINO [facility] Address [address] [place] [address] Care Team Providers Care Grab Jack Man Name Role Phone LEYDA TOLENTINO Unavailable PROBLEMS Type Condition ICD9-CM Code [id number] Code Onset Dates Condition Status SNOMED Code Problem Allergic rhinitis, unspecified allergic rhinitis type J30.9 Active 84507569 Problem Bipolar depression F31.30 Active 02366833 Problem Lumbago with sciatica, left side M54.42 Active 738511984 Problem Other chronic pain G89.29 Active 59604098 Problem Overactive bladder N32.81 Active 335939559 Problem Insomnia, unspecified type G47.00 Active 112316703 Problem Abdominal spasms R10.9 Active 25195691 Problem Other specified hypothyroidism E03.8 Active 34776735 Problem Muscle spasms of both lower extremities M62.838 Active 653382550 Problem 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 73669882 Problem Hyponatremia 276.1 Active 32918609 Problem Insomnia 780.52 Active 816117931 Problem Anxiety F41.9 Active 46893932 Problem Gastroesophageal reflux disease, esophagitis presence not specified K21.9 Active 060947378 Problem RLS (restless legs syndrome) G25.81 Active 94329763 Problem Moderate persistent asthma without complication J45.40 Active 160687800 Problem Benign essential hypertension I10 Active 9535901 Problem Constipation, unspecified constipation type K59.00 Active 01770844 ALLERGIES No Information ENCOUNTERS Encounter Location Date Diagnosis [facility] [address] [facility] [id number], [place] [id number] Oct, [facility] [address] [facility] [id number], [place] [id number] Oct, [facility] [address] [facility] [id number][place] [id number] Aug, [facility] [address] [id number], [place] [id number] Aug, Back spasm M62.830 and Anxiety F41.9 [facility] [id number], [place] [id number] Aug, Back spasm M62.830 and Anxiety F41.9 [facility] [address] [id number], [place] [id number] Jul, [facility] [address] [id number], [place] [id number] Jul, [facility] [id number], [place] [id number] Jul, Back muscle spasm M62.830 and RLS (restless legs syndrome) G25.81 [facility] [id number] [place] [address] [id number] Jul, Back spasm M62.830 [facility] [place] [id number] [place] [address] [id number] Jul, Back spasm M62.830 and Anxiety F41.9 [facility] [id number], [place] [id number] June, Insomnia, unspecified type G47.00 ; Overactive bladder N32.81 and Back spasm M62.830 [facility] [id number], [place] [id number] June, Anxiety F41.9 and Lumbago with sciatica, left side M54.42 [facility] [id number], [place] [id number] May, Anxiety F41.9 and Lumbago with sciatica, left side M54.42 [facility] [address] [id number], [place] [id number] Apr, Dental examination Z01.20 [facility] [address] [id number], [place] [id number] Apr, [facility] [address] [id number], [place] [id number] Apr, RLS (restless legs syndrome) G25.81 ; Lumbago with sciatica, left side M54.42 and Anxiety F41.9 [facility] [place] [id number], [place] [id number] Mar, [facility] [place] [id number] [place] [address] [id number] Mar, Insomnia, unspecified type G47.00 [facility] [id number] [place] [address] [id number] Mar, Insomnia, unspecified type G47.00 and RLS (restless legs syndrome) G25.81 [facility] [address] [id number], [place] [id number] Mar, [facility] [address] [id number], [place] [id number] Mar, Dental examination Z01.20 [place] [address] [address] Mar, [facility] [id number] [place] [address] [id number] Mar, Lumbago with sciatica, left side M54.42 and Anxiety F41.9 [facility] [id number] [place] [phone]- 5860 Mar, [place] [id number] [place] [address] [id number] Mar, Insomnia, unspecified type G47.00 [facility] [place] [id number] [place] [address] [id number] Mar, [facility] [id number] [place] [address] [id number] Feb, Insomnia, unspecified type G47.00 [facility] [id number] [place] [address] [id number] Feb, Lumbago with sciatica, left side M54.42 and Anxiety F41.9 [facility] [id number] [place] [address] [id number] Feb, [facility] [id number] [place] [address] [id number] Feb, RLS (restless legs syndrome) G25.81 ; Lumbago with sciatica, left side M54.42 ; Overactive bladder N32.81 and Anxiety F41.9 [place] [id number] [place] [address] [id number] Jan, Overactive bladder N32.81 and Moderate persistent asthma without complication J45.40 [place] [id number] [place] [address] [id number] Jan, Lumbago with sciatica, left side M54.42 and Insomnia, unspecified type G47.[address] [id number] Jan, RLS (restless legs syndrome) G25.81 [place] [id number] [place] [address] [id number] Dec, Overactive bladder N32.81 and Other chronic pain G89.29 [place] [id number] [place] [address] [id number] Dec, Lumbago with sciatica, left side M54.42 ; Insomnia, unspecified type G47.00 and RLS (restless legs syndrome) G25.81 [address] [place] [address] [id number] Nov, Overactive bladder N32.81 [place] [id number] [place] [address] [id number] Nov, [place] [id number] [place] [address] [id number] Nov, Lumbago with sciatica, left side M54.42 ; Insomnia, unspecified type G47.00 and RLS (restless legs syndrome) G25.81 [place] [id number] [place] [address] [id number] Nov, Constipation, unspecified constipation type K59.00 ; Lumbago with sciatica , left side M54.42 ; Insomnia, unspecified type G47.00 ; Bloating R14.0 and Encounter for immunization Z23 [facility] [address] [id number][place] [id number] Oct, Dental examination Z01.20 [facility] [place] [address] [id number], [place] [id number] Oct, RLS (restless legs syndrome) G25.81 ; Lumbago with sciatica, left side M54.42 and Insomnia, unspecified type G47.00 [facility] [address] [id number], [place] [id number] Sep, Moderate persistent asthma without complication J45.40 [facility] [address] [id number], [place] [id number] Sep, Dental examination Z01.20 [facility] [address] [id number], [place] [id number] Sep, Lumbago with sciatica, left side M54.42 and Insomnia, unspecified type G47.00 [facility] [id number], [place] [id number] Sep, RLS (restless legs syndrome) G25.81 [facility] [address]00565100[place], [place] 90397[address]- [address] Aug, [facility] [id number], [place] [id number] Aug, [facility] [address] [place] [address] [id number] [place] [address] Aug Insomnia, unspecified type G47.00 [facility] [address] [id number], [place] [id number] Aug, Dental examination Z01.20 [facility] [address] [id number], [place] [id number] Aug, Vaginal discharge N89.8 [facility] [id number], [place] [id number] Aug, RLS (restless legs syndrome) G25.81 [facility] [address] [id number], [place] [id number] Aug, Dental examination Z01.20 [facility] [address] [id number], [place] [id number] Jul, Dental examination Z01.20 [facility] [id number] [place] [address] [id number] Jul, Lumbago with sciatica, left side M54.42 ; RLS (restless legs syndrome) G25.81 ; Moderate persistent asthma without complication J45.40 and Other specified hypothyroidism E03.8 [facility] [id number] [place] [address] [id number] Jul, Insomnia, unspecified type G47.00 and Lumbago with sciatica, left side M54.42 [facility] [id number], [place] [id number] Jul, Dental examination Z01.20 [facility] [address] [id number], [place] [id number] May, Dental examination Z01.20 and Dental caries K02.9 [facility] [id number], [place] [id number] May, [facility] [id number] [place] [address] [id number] May, RLS (restless legs syndrome) G25.81 [facility] [id number], [place] [id number] May, Lumbago with sciatica, left side M54.42 ; Insomnia, unspecified type G47.00 and RLS (restless legs syndrome) G25.81 [facility] [id number], [place] [id number] Apr, Muscle spasms of both lower extremities M62.838 ; Constipation, unspecified constipation type K59.00 and Insomnia, unspecified type G47.00 [facility] [id number], [place] [id number] Apr, [facility] [id number] [place] [address] [id number] Apr, Anxiety F41.9 and Lumbago with sciatica, left side M54.42 [facility] [place] [address] [facility] [address] [id number], [place] [id number] Mar, Encounter for dental examination and cleaning without abnormal findings Z01.20 [facility] [address] [id number], [place] [id number] Mar, Muscle cramp, nocturnal R25.2 [facility] [address] [id number], [place] [id number] 14 Mar, 2016 RLS (restless legs syndrome) G25.81 ; Anxiety F41.9 ; Lumbago with sciatica, left side M54.42 ; Insomnia, unspecified type G47.00 and Muscle cramps R25.2 [facility] [id number] [place] [address] [id number] Mar, [facility] [address] [id number] [place] [address] [id number] Feb, [facility] [address] [id number] [place] [address] [id number] Feb, [facility] [id number] [place] [address] [id number] Jan, [facility] [address] [id number] [place] [address] [id number] Jan, Moderate persistent asthma without complication J45.40 [facility] [id number] [place] [address] [id number] Jan, [facility] [address] [id number] [place] [address] [id number] Jan, [facility] [address] [id number] [place] [address] [id number] Jan, [facility] [address] [id number] [place] [address] [id number] Jan, [facility] [id number] [place] [address] [id number] Dec, [facility] [id number] [place] [address] [phone] Dec, [facility] [id number] [place] [address] [id number] Nov, [facility] [address] [id number], [place] [id number] Nov, [facility] [address] [id number], [place] [id number] Nov, Dental examination Z01.20 [facility] [address] [id number], [place] [id number] Nov, Bipolar depression F31.30 [facility] [address] [id number] [place] [address] [id number] Nov, Lumbago with sciatica, left side M54.42 ; Allergic rhinitis, unspecified allergic rhinitis type J30.9 ; Bipolar depression F31.30 ; Moderate persistent asthma without complication J45.40 ; Encounter for immunization Z23 ; Abdominal spasms R10.9 and Benign essential hypertension I10 [facility] [address] [id number], [place] [id number] Nov, [facility] [id number] [place] [address] [id number] Oct, [facility] [address] [id number] [place] [address] [id number] Oct, [facility] [address] [id number], [place] [id number] Sep, [facility] [address] [id number] [place] [address] [id number] Sep, [facility] [address] [id number], [place] [id number] Sep, [facility] [address] [id number] [place] [address] Sep [facility] [address] [id number], [place] [id number] Aug, [facility] [address] [id number], [place] [id number] Aug, Dental examination Z01.20 [facility] [address] [id number], [place] [id number] Aug, [facility] [address] [id number], [place] [id number] Aug, [facility] [address] [id number], [place] [id number] Jul, Allergic rhinitis, unspecified allergic rhinitis type J30.9 ; RLS ( restless legs syndrome) G25.81 ; Lumbago with sciatica, left side M54.42 and Other chronic pain G89.29 [facility] [place] [address] [id number] [place] [address] [id number] Jul, Allergic rhinitis, unspecified allergic rhinitis type J30.9 and RLS ( restless legs syndrome) G25.81 [facility] [place] [address] [id number] [place] [address] [id number] Jul, [facility] [address] [id number] [place] [address] [id number] June, Hypo-osmolality and hyponatremia E87.1 and Benign essential hypertension I10 [facility] [id number] [place] [address] [id number] June, [place] [id number] [place] [address] [id number] June, Moderate persistent asthma without complication J45.40 ; RLS (restless legs syndrome) G25.81 ; Benign essential hypertension I10 ; Anxiety F41.9 and Constipation, unspecified constipation type K59.00 [facility] [id number], [place] [id number] June, Encounter for dental examination and cleaning without abnormal findings Z01.20 [facility] [id number] [place] [address] [id number] June, [facility] [id number] [place] [address] [id number] June, [facility] [id number] [place] [address] [id number] June, [facility] [id number] [place] [address] [id number] May, [facility] [address] [id number] [place] [address] [id number] May, [facility] [id number] [place] [address] [id number] May, [facility] [address] [id number], [place] [id number] May, [facility] [address] [id number] [place] [address] [id number] Apr, [facility] [address] [id number], [place] [id number] Apr, Anxiety F41.9 [facility] [address] [id number] [place] [address] [id number] Apr, [facility] [address] [id number] [place] [address] [id number] Mar, [facility] [address] [id number] [place] [address] [id number] Mar, [facility] [id number] [place] [address] [id number] Mar, [facility] [address] [id number] [place] [address] [id number] Mar, RLS (restless legs syndrome) G25.81 ; Anxiety F41.9 and Moderate persistent asthma without complication J45.40 [facility] [address] [id number], [place] [id number] Mar, [facility] [address] [id number] [place] [address] [id number] Mar, [facility] [address] [id number], [place] [id number] Feb, [facility] [address] [id number], [place] [id number] Feb, [facility] [address] [id number], [place] [id number] Feb, [facility] [place] [address] [facility] [address] [id number], [place] [id number] Feb, Encounter for dental examination Z01.20 [facility] [address] [id number], [place] [id number] Feb, [facility] [address] [id number], [place] [id number] Jan, [facility] [address] [id number] [place] [address] [id number] Jan, Benign essential hypertension I10 [facility] [id number], [place] [id number] Jan, RLS (restless legs syndrome) G25.81 and Gastroesophageal reflux disease, esophagitis presence not specified K21.9 [facility] [id number], [place] [id number] Jan, [facility] [id number] [place] [address] [id number] Jan, [facility] [id number] [place] [address] [id number] Dec, Anxiety F41.9 ; Benign essential hypertension I10 and RLS (restless legs syndrome) G25.81 [facility] [id number], [place] [id number] Dec, RLS (restless legs syndrome) G25.81 ; Esophageal reflux 530.81 and Anxiety F41.9 [facility] [address] [id number], [place] [id number] Dec, [facility] [id number] [place] [address] [id number] Nov, Anxiety F41.9 [place] [id number] [place] [address] [id number] Nov, Anxiety F41.9 ; Encounter for immunization Z23 ; Benign essential hypertension I10 ; RLS (restless legs syndrome) G25.81 and Rhinitis J31.0 [facility] [address] [id number], [place] [address]- [address] Nov, [facility] [address] [id number], [place] [id number] Nov, [facility] [address] [id number], [place] [id number] Nov, [facility] [address] [id number], [place] [id number] Nov, [facility] [place] [address] [place] [id number] [id number] Nov, [facility] [address] [id number] [place] [id number] Oct, [facility] [address] [facility] [id number][place] [id number] Oct, [facility] [address] [id number], [place] [id number] Oct, [facility] [address] [id number], [place] [id number] Oct, Esophageal reflux 530.81 ; Asthma, unspecified, unspecified status 493.90 and Essential hypertension, benign 401.1 [facility] [address] [id number], [place] [id number] Oct, [facility] [address] [id number], [place] [id number] Oct, [facility] [address] [id number], [place] [id number] Oct, [facility] [address] [id number], [place] [id number] Sep, [facility] [address] [id number], [place] [id number] Sep, Esophageal reflux 530.81 ; Insomnia 780.52 and Essential hypertension, benign 401.1 [facility] [address] [id number], [place] [id number] Sep, [facility] [address] [id number], [place] [id number] Sep, [facility] [address] [id number], [place] [id number] Sep, [facility] [address] [id number], [place] [id number] Sep, [facility] [address] [id number], [place] [id number] Sep, [facility] [address] [id number], [place] [id number] Sep, [facility] [address] [id number], [place] [id number] Sep, [facility] [address] [id number], [place] [id number] Sep, Essential hypertension, benign 401.1 ; Hyponatremia 276.1 and 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 [facility] [id number] [place] [id number] Sep, [facility] [id number] [place] [address] [id number] Aug, [facility] [id number] [place] [address] [id number] Aug, [facility] [place] [id number] [place] [address] [id number] Jul, [facility] [id number] [place] [address] [id number] Jul, [facility] [id number] [place] [address] [id number] Jul, [facility] [id number] [place] [address] [id number] Jul, [facility] [id number] [place] [address] [id number] Jul, [facility] [id number] [place] [address] [id number] Jul, Insomnia 780.52 [facility] [id number] [place] [address] [id number] June, Muscle stiffness 728.9 and Insomnia 780.52 [facility] [id number] [place] [address] [id number] June, [facility] [id number] [place] [address] [id number] June, [facility] [id number] [place] [address] [id number] June, [facility] [id number] [place] [address] [id number] June, [facility] [id number] [place] [address] [id number] May, [facility] [id number] [place] [address] [id number] May, [facility] [id number] [place] [phone] May, [facility] [address] [id number] [place] [id number] Apr, [facility] [address] [facility] [id number], [place] [address] Apr, [facility] [address] [id number][place] [id number] Apr, [facility] [address] [facility] [id number], [place] [address] Apr, [facility] [address] [facility] [id number], [place] [address] Apr, [facility] [address] [facility] [id number], [place] [address] Apr, [facility] [address] [facility] [id number][place] [id number] Apr, [facility] [id number] [address] Apr, [facility] [address] [facility] [id number] [id number] Mar, [facility] [place] [facility] [address] [id number] [address] Mar, [facility] [address] [facility] [id number][place] [id number] Mar, [facility] [place] [facility] [address] [id number], [place] [address] Mar, [facility] [address] [facility] [place] [id number][place] [id number] Mar, [facility] [place] [facility] [address] [facility] [id number], [place] [address] Mar, [facility] [place] [facility] [address] [facility] [id number], [place] [address] Mar, [facility] [address] [facility] [place] [id number][place] [id number] Feb, [facility] [place] [facility] [address] [id number], [place] [address] Feb, [facility] [address] [id number] [place] [id number] Feb, [facility] [address] [id number] [place] [id number] Feb, [facility] [address] [id number] [place] [id number] Feb, [facility] [place] [facility] [address] [facility] [id number], [place] [address] Feb, [facility] [place] [facility] [address] [facility] [id number] [place] [address] Feb, [facility] [place] [facility] [id number] [address] Feb, [facility] [address] [id number] [id number] Feb, [facility] [place] [facility] [address] [facility] [id number], [place] [address] Feb, [facility] [address] [facility] [place] [id number] [place] [id number] Feb, [facility] [place] [facility] [id number], [place] [address] Feb, [facility] [place] [facility] [address] [facility] [id number], [place] [address] Jan, [facility] [address] [id number][place] [id number] Jan, [facility] [place] [facility] [address] [facility] [id number] [place] [address] Jan, [facility] [address] [facility] [place] [id number] [place] [id number] Jan, [facility] [place] [facility] [address] [facility] [id number] [place] [address] Jan, [facility] [address] [facility] [place] [id number] [place] [id number] Jan, [facility] [address] [facility] [id number] [place] [address] Jan, [facility] [address] [facility] [id number] [place] [address] Jan, [facility] [address] [facility] [place] [id number] [place] [id number] Jan, [facility] [address] [facility] [id number], [place] [address] Jan, [facility] [address] [facility] [id number] [place] [address] June, IMMUNIZATIONS No Known Immunizations SOCIAL HISTORY Never Assessed REASON FOR VISIT Requests return call PLAN OF CARE VITAL SIGNS MEDICATIONS Unknown [...] Surgical History Esophagus stretched 2017 Hospitalization History [facility] for hyponatremia, change in mental status, angioedema 09/2014
--- OUTSIDE RECORDS SUMMARY | 2017-08-27 16:27 | XMS REPORT ---
Author Author AIMEE LING [facility] e[employer] Address Unknown Phone Unavailable Care Team Providers Care Field Marketing Associate Name Role Phone AIMEE LING CP Unavailable Allergies, Adverse Reactions, Alerts Substance Reaction Event Type Lyrica hives Drug Allergy Problems Problem Type Condition Code Onset Dates Condition Status Problem Asthma, unspecified, unspecified status 493.90 Active Problem Need for prophylactic vaccination and inoculation, Influenza V04.81 Active Problem Bipolar disorder, unspecified 296.80 Active Problem Benign essential hypertension I10 Active Problem RLS (restless legs syndrome) G25.81 Active Problem Anxiety F41.9 Active Problem Insomnia 780.52 Active Problem Esophageal reflux 530.81 Active Problem Hyponatremia 276.1 Active Problem 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 Assessment RLS (restless legs syndrome) G25.81 Active Problem Contact dermatitis and other eczema, due to unspecified cause 692.9 Active Problem Restless legs syndrome [RLS] 333.94 Active Assessment Benign essential hypertension I10 Active Problem Unspecified constipation 564.00 Active Assessment Anxiety F41.9 Active Problem Essential hypertension, benign 401.1 Active Medications Medication Code System Code Instructions Start Date End Date Status Dosage Omeprazole [facility] [address]-63 40 MG Orally Once a day Feb 25, 2014 1 Capsule Clonazepam [facility] [address]-41 0.5 MG Orally Once a day at HS, PRN for RLS. Must last one month August 04, 2014 0.5 tablet Zyprexa [facility] [address]-21 20 MG Orally Once a day Jan 29, 2014 1 tablet Premarin [facility] [address]-87 0.9 MG Orally Once a day Jan 14, 2014 1 tablet Imdur [facility] [address]-08 30 MG Orally Once a day Oct 08, 2014 1 tablet Flonase [facility] [address]-03 50 MCG/ACT Nasally 2 times a day Nov 30, 2014 1 spray in each nostril Gabapentin [facility] [address]-14 300 MG Orally 1 tab in am and midday, 2 tabs at hs Mar 04, 2014 1-2 Tablet ProAir HFA [facility] [address]-79 108 (90 Base) MCG/ACT Inhalation 4 times a day for wheezing or SOB Oct 21, 2014 2 puffs as needed HydrOXYzine HCl [facility] [address]-17 25 MG Orally 3 times a day Nov 20, 2014 1 tablet as needed MiraLax [facility] [address]-67 17 gram/dose Orally Once a day April 29, 2014 1 packet mixed with 8 ounces of fluid Zolpidem Tartrate [facility] [address]-71 10 MG Orally Once a day must last 1 m 1 tablet at bedtime as needed Lisinopril-Hydrochlorothiazide [facility] [address]-51 20-12.5 MG Orally Once a day Oct 15, 2014 1 tablet Levothyroxine Sodium [facility] [address]-59 50 MCG Orally Once a day 1 tablet Lamictal [facility] [address]-21 100 MG Orally Once a day Sep 24, 2014 1 tablet tramadol [facility] 0 50 mg orally 3 times a day prn Must last 1 mo April 29, 2014 1 tablet BusPIRone HCl [facility] [address]-85 15 MG Orally Three times a day June 09, 2014 1 tablet Advair Diskus [facility] [address]-31 250-50 MCG/DOSE Inhalation Twice a day Mar 03, 2014 inhale 1 puff Procedures Procedure Coding System Code Date Office Visit, Est Pt., Level 3 CPT-4 94309 Dec 31, 2014 Vital Signs Date/Time: Dec 31, 2014 Temperature 98.9 F Weight 194.8 lbs Height 63 in BMI 34.50 Index Blood Pressure Diastolic 92 mmHg Blood Pressure Systolic 154 mmHg Cardiac Monitoring Heart Rate 76 bpm Results No Known Results Summary Purpose eClinicalWorks Submission
--- OUTSIDE RECORDS SUMMARY | 2017-08-27 16:27 | XMS REPORT ---
Author Author AIMEE LING [facility] Address [address] [place] [address] Care Team Providers Care Oracle Ebs Architect Name Role Phone AIMEE LING Unavailable PROBLEMS Type Condition ICD9-CM Code EDU22-PK Code Onset Dates Condition Status SNOMED Code Problem Allergic rhinitis, unspecified allergic rhinitis type J30.9 Active 79631291 Problem Bipolar depression F31.30 Active 32856306 Problem Lumbago with sciatica, left side M54.42 Active 965242656 Problem Other chronic pain G89.29 Active 35318449 Problem Overactive bladder N32.81 Active 056196884 Problem Insomnia, unspecified type G47.00 Active 292866000 Problem Abdominal spasms R10.9 Active 86785557 Problem Other specified hypothyroidism E03.8 Active 50201643 Problem Muscle spasms of both lower extremities M62.838 Active 967686057 Problem 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 99325716 Problem Hyponatremia 276.1 Active 00528321 Problem Insomnia 780.52 Active 643979692 Problem Anxiety F41.9 Active 03169541 Problem Gastroesophageal reflux disease, esophagitis presence not specified K21.9 Active 008837214 Problem RLS (restless legs syndrome) G25.81 Active 73789871 Problem Moderate persistent asthma without complication J45.40 Active 005825102 Problem Benign essential hypertension I10 Active 8612160 Problem Constipation, unspecified constipation type K59.00 Active 46000526 ALLERGIES No Information ENCOUNTERS Encounter Location Date Diagnosis [facility] [address] [id number] [place] [id number] Aug, [facility] [address] [id number] [place] [id number] Jul, [facility] [address] [id number] [place] [id number] Jul, Back spasm M62.830 [facility] [address] [id number][place] [id number] Jul, Back spasm M62.830 and Anxiety F41.9 [facility] [place] [id number], [place] [id number] June, Insomnia, unspecified type G47.00 ; Overactive bladder N32.81 and Back spasm M62.830 [facility] [place] [id number], [place] [id number] June, Anxiety F41.9 and Lumbago with sciatica, left side M54.42 [facility] [place] [address] [id number], [place] 737098833 May, Anxiety F41.9 and Lumbago with sciatica, left side M54.42 [facility] [address] [address] [id number][place] [id number] Apr, Dental examination Z01.20 [facility] [address] [id number][place] [id number] Apr, [facility] [place] [address] [id number], [place] [id number] Apr, RLS (restless legs syndrome) G25.81 ; Lumbago with sciatica, left side M54.42 and Anxiety F41.9 [facility] [place] [address] [id number], [place] [id number] Mar, [facility] [place] [address] [id number], [place] [id number] Mar, Insomnia, unspecified type G47.00 [facility] [place] [address] [id number], [place] [id number] Mar, Insomnia, unspecified type G47.00 and RLS (restless legs syndrome) G25.81 [facility] [address] [id number], [place] [id number] Mar, [facility] [address] [id number], [place] [id number] Mar, Dental examination Z01.20 [facility] [address]00565100[place], [place] [address] Mar, [facility] [id number] [place] [address] [id number] Mar, Lumbago with sciatica, left side M54.42 and Anxiety F41.9 [facility] [address]00565100[place], [place] [address] Mar, [facility] [id number] [place] [address] [id number] Mar, Insomnia, unspecified type G47.00 [facility] [id number] [place] [address] [id number] Mar, [facility] [id number] [place] [address], [place] [id number] Feb, Insomnia, unspecified type G47.00 [facility] [place] [id number] [place] [address], [place] [id number] Feb, Lumbago with sciatica, left side M54.42 and Anxiety F41.9 [facility] [place] [id number] [place] [address] [id number] Feb, [facility] [id number] [place] [address] [id number] Feb, RLS (restless legs syndrome) G25.81 ; Lumbago with sciatica, left side M54.42 ; Overactive bladder N32.81 and Anxiety F41.9 [facility] [place] [id number] [place] [address] [id number] Jan, Overactive bladder N32.81 and Moderate persistent asthma without complication J45.40 [facility] [id number] [place] [address] [id number] Jan, Lumbago with sciatica, left side M54.42 and Insomnia, unspecified type G47.00 [facility] [id number] [place] [address] [phone] Jan, RLS (restless legs syndrome) G25.81 [facility] [place] [id number], [place] [id number] Dec, Overactive bladder N32.81 and Other chronic pain G89.29 [facility] [address] [facility] [id number], [place] [id number] Dec, Lumbago with sciatica, left side M54.42 ; Insomnia, unspecified type G47.00 and RLS (restless legs syndrome) G25.81 [facility] [id number], [place] 183040261 Nov, Overactive bladder N32.81 [facility] [address] [id number], [place] [id number] Nov, [facility] [id number], [place] [id number] Nov, Lumbago with sciatica, left side M54.42 ; Insomnia, unspecified type G47.00 and RLS (restless legs syndrome) G25.81 [facility] [id number], [place] [id number] Nov, Constipation, unspecified constipation type K59.00 ; Lumbago with sciatica , left side M54.42 ; Insomnia, unspecified type G47.00 ; Bloating R14.0 and Encounter for immunization Z23 [address] [id number], [place] [id number] Oct, Dental examination Z01.[address] [id number], [place] [id number] Oct, RLS (restless legs syndrome) G25.81 ; Lumbago with sciatica, left side M54.42 and Insomnia, unspecified type G47.00 [facility] 120 [facility] [id number], [place] [id number] Sep, Moderate persistent asthma without complication J45.40 [address] [id number], [place] [id number] Sep, Dental examination Z01.20 [facility] [address] [facility] [id number], [place] [id number] Sep, Lumbago with sciatica, left side M54.42 and Insomnia, unspecified type G47.00 [address]00565100[place], [place] [id number] Sep, RLS (restless legs syndrome) G25.81 [facility] [address]00565100[place], [place] 41445508- [address] Aug, [facility] [address] [id number], [place] [id number] Aug, [facility] [address] [id number] [place] [address] Aug Insomnia, unspecified type G47.[address] [facility] [address] [id number], [place] [id number] Aug, Dental examination Z01.20 [facility] [address] [id number], [place] [id number] Aug, Vaginal discharge N89.8 [facility] [id number], [place] [id number] Aug, RLS (restless legs syndrome) G25.[address] [facility] [address] [id number], [place] 355740007 Aug, Dental examination Z01.20 [facility] [address] [id number], [place] [id number] Jul, Dental examination Z01.20 [facility] [address] [facility] [id number], [place] [id number] Jul, Lumbago with sciatica, left side M54.42 ; RLS (restless legs syndrome) G25.81 ; Moderate persistent asthma without complication J45.40 and Other specified hypothyroidism E03.8 [facility] [address] [id number], [place] [id number] Jul, Insomnia, unspecified type G47.00 and Lumbago with sciatica, left side M54.[address] [facility] [address] [id number], [place] [id number] Jul, Dental examination Z01.[address] [facility] [address] [id number], [place] [id number] May, Dental examination Z01.20 and Dental caries K02.9 [facility] [place] [id number], [place] [id number] May, [facility] [place] [id number] [place] [address] [id number] May, RLS (restless legs syndrome) G25.81 [facility] [place] [id number], [place] [id number] May, Lumbago with sciatica, left side M54.42 ; Insomnia, unspecified type G47.00 and RLS (restless legs syndrome) G25.81 [facility] [place] [id number], [place] 580553454 Apr, Muscle spasms of both lower extremities M62.838 ; Constipation, unspecified constipation type K59.00 and Insomnia, unspecified type G47.00 [facility] [place] [id number], [place] [id number] Apr, [facility] [place] [id number] [place] [address] [id number] Apr, Anxiety F41.9 and Lumbago with sciatica, left side M54.42 [facility] [address] [id number], [place] [id number] Mar, Encounter for dental examination and cleaning without abnormal findings Z01.20 [facility] [place] [id number], [place] [id number] Mar, Muscle cramp, nocturnal R25.2 [facility] [id number], [place] [id number] Mar, RLS (restless legs syndrome) G25.81 ; Anxiety F41.9 ; Lumbago with sciatica, left side M54.42 ; Insomnia, unspecified type G47.00 and Muscle cramps R25.2 [facility] [address] [id number] [address] 06 Mar, 2016 [facility] [address]00565100[place], [place] [id number] Feb, [address] [id number] 648393826 Feb, [facility] [place] [address] [id number], [place] [id number] Jan, [facility] [place] [address] [id number], [place] [id number] Jan, Moderate persistent asthma without complication J45.40 [facility] [place] [address] [id number], [place] [id number] Jan, [facility] [place] [address] [id number] [place] [id number] Jan, [facility] [place] [address] [id number] [place] [id number] Jan, [facility] [place] [address] [id number] [place] [id number] Jan, [facility] [place] [address] [id number], [place] [id number] Dec, [facility] [address]00565100[place], [place] [address] Dec, [facility] [place] [address] [id number], [place] [id number] Nov, [facility] [place] [address] [id number], [place] [id number] Nov, [facility] [place] [address] [facility] [id number], [place] [id number] Nov, Dental examination Z01.20 [facility] [place] [address] [id number], [place] [id number] Nov, Bipolar depression F31.30 [facility] [place] [address] [id number], [place] [id number] Nov, Lumbago with sciatica, left side M54.42 ; Allergic rhinitis, unspecified allergic rhinitis type J30.9 ; Bipolar depression F31.30 ; Moderate persistent asthma without complication J45.40 ; Encounter for immunization Z23 ; Abdominal spasms R10.9 and Benign essential hypertension I10 [facility] [place] [address] [id number], [place] [id number] Nov, [facility] [place] [address] [id number], [place] [id number] Oct, [facility] [place] [address] [id number], [place] [id number] Oct, [facility] [place] [address] [id number], [place] [id number] Sep, [facility] [place] [address] [id number], [place] [id number] Sep, [facility] [place] [address] [id number], [place] [id number] Sep, [facility] [place] [address] [id number] [place] [address] Sep [facility] [place] [address] [id number], [place] [id number] Aug, [facility] [address] [id number], [place] [id number] Aug, Dental examination Z01.20 [facility] [place] [address] [id number], [place] [id number] Aug, [facility] [place] [address] [id number], [place] [id number] Aug, [facility] [place] [address] [id number], [place] [id number] Jul, Allergic rhinitis, unspecified allergic rhinitis type J30.9 ; RLS ( restless legs syndrome) G25.81 ; Lumbago with sciatica, left side M54.42 and Other chronic pain G89.29 [facility] [place] [address] [id number], [place] 198438438 Jul, Allergic rhinitis, unspecified allergic rhinitis type J30.9 and RLS ( restless legs syndrome) G25.81 [facility] [place] [address] [id number], [place] [id number] Jul, [facility] [place] [address] [id number], [place] [id number] June, Hypo-osmolality and hyponatremia E87.1 and Benign essential hypertension I10 [facility] [place] [address] [id number], [place] 454886558 June, [facility] [id number] [place] [address] [id number] June, Moderate persistent asthma without complication J45.40 ; RLS (restless legs syndrome) G25.81 ; Benign essential hypertension I10 ; Anxiety F41.9 and Constipation, unspecified constipation type K59.00 [facility] [place] [address] [id number], [place] [id number] June, Encounter for dental examination and cleaning without abnormal findings Z01.20 [facility] [place] [address] [id number], [place] [id number] June, [facility] [place] [id number] [place] [address] [id number] June, [facility] [place] [address] [id number] [place] [address] [phone] June, [facility] [place] [address] [id number] [place] [address] [id number] May, [facility] [place] [address] [id number] [place] [address] [id number] May, [facility] [address] [id number] [place] [address] [id number] May, [facility] [address] [id number] [place] [address] [id number] May, [facility] [address] [id number] [place] [address] [id number] Apr, [facility] [address] [id number] [place] [address] [phone] Apr, Anxiety F41.9 [facility] [address] [id number] [place] [address] [id number] Apr, [facility] [address] [id number] [place] [address] [id number] Mar, [facility] [address] [id number] [place] [address] [id number] Mar, [facility] [address] [id number] [place] [address] [phone] Mar, [facility] [address] [id number] [place] [address] [id number] Mar, RLS (restless legs syndrome) G25.81 ; Anxiety F41.9 and Moderate persistent asthma without complication J45.40 [facility] [address] [id number] [place] [address] [phone] Mar, [facility] [place] [address] [id number] [place] [address] [id number] Mar, [facility] [address] [id number] [place] [address] [id number] Feb, [facility] [address] [id number] [place] [address] [id number] Feb, [facility] [address] [id number] [place] [address] [id number] Feb, [facility] [place] [address] [id number] [place] [address] [id number] Feb, Encounter for dental examination Z01.20 [facility] [id number] [place] [address] [phone] Feb, [facility] [id number] [place] [address] [id number] Jan, [facility] [id number] [place] [address] [phone] Jan, Benign essential hypertension I10 [facility] [id number] [place] [address] [id number] Jan, RLS (restless legs syndrome) G25.81 and Gastroesophageal reflux disease, esophagitis presence not specified K21.9 [facility] [id number] [place] [address] [id number] Jan, [facility] [id number] [place] [address] [id number] Jan, [facility] [id number] [place] [address] [id number] Dec, Anxiety F41.9 ; Benign essential hypertension I10 and RLS (restless legs syndrome) G25.81 [facility] [id number] [place] [address] [id number] Dec, RLS (restless legs syndrome) G25.81 ; Esophageal reflux 530.81 and Anxiety F41.9 [facility] [address] [id number], [place] [id number] Dec, [facility] [place] [id number], [place] [id number] Nov, Anxiety F41.9 [facility] [place] [id number] [place] [address] [phone] Nov, Encounter for immunization Z23 ; Anxiety F41.9 ; Benign essential hypertension I10 ; RLS (restless legs syndrome) G25.81 and Rhinitis J31.0 [facility] [address] [id number], [place] [address] Nov, [facility] [place] [id number] [place] [address] [phone] Nov, [facility] [place] [address] [id number], [place] [id number] Nov, [facility] [address]00565100[place], [place] [id number] Nov, [address]00565100[place], [place] [id number] Nov, [facility] [address] [id number], [place] [id number] Oct, [place] [id number] [place] [address] [id number] Oct, [facility] [address]00565100[place], [place] [id number] Oct, [place] [id number] [place] [address] [id number] Oct, Asthma, unspecified, unspecified status 493.90 ; Esophageal reflux 530.81 and Essential hypertension, benign 401.1 [facility] [address]00565100[place], [place] [id number] Oct, [facility] [place] [id number] [place] [address] [phone] Oct, [place] [id number], [place] [id number] Oct, [place] [id number] [id number] Sep, [facility] [address] [id number] [place] [id number] Sep, Esophageal reflux 530.81 ; Insomnia 780.52 and Essential hypertension, benign 401.1 [facility] [address] [id number] [place] [id number] Sep, [facility] [address] [id number] [place] [id number] Sep, [facility] [address] [id number] [place] [id number] Sep, [facility] [address] [id number] [place] [id number] Sep, [facility] [address] [id number] [place] [id number] Sep, [facility] [address] [id number] [place] [id number] Sep, [facility] [id number] [place] [address] [id number] Sep, [facility] [address] [id number] [place] [id number] Sep, Essential hypertension, benign 401.1 ; Hyponatremia 276.1 and 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 [facility] [address] [id number], [place] [id number] Sep, [facility] [address] [id number], [place] [id number] Aug, [facility] [address] [id number], [place] [id number] Aug, [facility] [address] [id number], [place] [id number] Jul, [facility] [address] [id number], [place] [id number] Jul, [facility] [address] [id number], [place] [id number] Jul, [facility] [address] [id number], [place] [id number] Jul, [facility] [address] [id number], [place] [phone] Jul, [facility] [address] [id number], [place] [id number] Jul, Insomnia 780.52 [facility] [id number] [place] [id number] June, Muscle stiffness 728.9 and Insomnia 780.52 [facility] [address] [id number][place] [id number] June, [facility] [id number] [place] [address] [id number] June, [facility] [address] [id number][place] [id number] June, [facility] [id number] [place] [id number] June, [facility] [id number], [place] [id number] May, [facility] [id number] [place] [address] May, [facility] [id number] [place] [address] May, [facility] [id number], [place] [id number] Apr, [facility] [id number], [place] [address] Apr, [facility] [id number], [place] [id number] Apr, [facility] [id number], [place] [address] Apr, [facility] [id number] [place] [address]- [address]66 Apr, [facility] [address] [id number], [place] [address] Apr, [facility] [address] [id number][place] [id number] Apr, [facility] [address] [facility] [id number], [place] [address] Apr, [facility] [address] [facility] [id number] [place] [id number] Mar, [facility] [address] [facility] [id number], [place] [address] Mar, [facility] [address] [facility] [id number] [place] [id number] Mar, [facility] [id number], [place] [address] Mar, [facility] [address] [facility] [id number], [place] [id number] Mar, [facility] [id number], [place] [address] Mar, [facility] [id number], [place] [address] Mar, [facility] [address] [id number], [place] [id number] Feb, [facility] [id number], [place] [address] Feb, [facility] [id number], [place] [id number] Feb, [facility] [address] [id number], [place] [id number] Feb, [facility] [address] [facility] [id number], [place] [id number] Feb, [facility] [id number], [place] [address] Feb, [facility] [id number], [place] [address] Feb, [facility] [id number], [place] [address] Feb, [facility] [id number] [place] [id number] Feb, [facility] [id number], [place] [address] Feb, [facility] [id number] [place] [phone] Feb, [facility] [id number] [place] [address] Feb, [facility] [id number] [place] [address] Jan, [facility] [id number] [id number] Jan, [facility] [id number] [place] [address] Jan, [facility] [id number] [place] [id number] Jan, [facility] [id number] [place] [address] Jan, [facility] [id number] [id number] Jan, [facility] [id number] [place] [address] Jan, [facility] [id number], [place] [address] Jan, [facility] [id number] [id number] Jan, [facility] [id number], [place] [address] Jan, [facility] [id number], [place] [address] June, IMMUNIZATIONS No Known Immunizations SOCIAL HISTORY Never Assessed REASON FOR VISIT Refill request PLAN OF CARE VITAL SIGNS MEDICATIONS Medication [...]
--- OUTSIDE RECORDS SUMMARY | 2017-08-27 16:28 | XMS REPORT ---
Author Author AIMEE LING Organization [employer] Address Unknown Phone Unavailable Care Team Providers Care Corporate Health Consultant Name Role Phone AIMEE LING CP Unavailable [...] associated with 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 Active Problem Contact dermatitis and other eczema, due to unspecified cause 692.9 Active Problem Restless legs syndrome [RLS] 333.94 Active Problem Unspecified constipation 564.00 Active Problem Essential hypertension, benign 401.1 Active Medications Medication Code System Code Instructions Start Date End Date Status Dosage Zolpidem Tartrate [facility] [address]-86 10 MG Orally Once a day must last 1 m 1 tablet at bedtime as needed Results No Known Results Summary Purpose [employer] Submission
--- OUTSIDE RECORDS SUMMARY | 2017-08-27 16:28 | XMS REPORT ---
Author Author JOSE STEWARD [facility] [employer] Address Unknown Phone Unavailable Care Team Providers Care Assembly Machine Tool Setter Name Role Phone JOSE STEWARD CP Unavailable Allergies No Known Allergies Problems [...]
--- OUTSIDE RECORDS SUMMARY | 2017-08-27 16:28 | XMS REPORT ---
Author Author AIMEE LING Organization [employer] Address Unknown Phone Unavailable Care Team Providers Care Forklift Truck Mechanic Name Role Phone AIMEE LING CP Unavailable [...] Instructions Start Date End Date Status Dosage [facility] [address]-80 30 MG Orally Once a day Oct 08, 2014 1 tablet Results No Known Results Summary Purpose [employer] Submission
--- OUTSIDE RECORDS SUMMARY | 2017-08-27 16:28 | XMS REPORT ---
Author Author AIMEE LING [facility] Address [address] [place] [address] Care Team Providers Care Painter Ski Edge Name Role Phone AIMEE LING Unavailable PROBLEMS Type Condition ICD9-CM Code QGU69-ZX Code Onset Dates Condition Status SNOMED Code Problem Allergic rhinitis, unspecified allergic rhinitis type J30.9 Active 99982235 Problem Bipolar depression F31.30 Active 88911945 Problem Lumbago with sciatica, left side M54.42 Active 751331154 Problem Other chronic pain G89.29 Active 91789694 Problem Overactive bladder N32.81 Active 445329806 Problem Insomnia, unspecified type G47.00 Active 940616413 Problem Abdominal spasms R10.9 Active 13890487 Problem Other specified hypothyroidism E03.8 Active 94688043 Problem Muscle spasms of both lower extremities M62.838 Active 516815288 Problem 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 13388353 Problem Hyponatremia 276.1 Active 16502581 Problem Insomnia 780.52 Active 486612349 Problem Anxiety F41.9 Active 26860000 Problem Gastroesophageal reflux disease, esophagitis presence not specified K21.9 Active 239737361 Problem RLS (restless legs syndrome) G25.81 Active 88642259 Problem Moderate persistent asthma without complication J45.40 Active 672496771 Problem Benign essential hypertension I10 Active 0286322 Problem Constipation, unspecified constipation type K59.00 Active 88969510 ALLERGIES No Information ENCOUNTERS Encounter Location Date Diagnosis [facility] [address] [id number] [place] [id number] June, [facility] [address] [facility][1] [id number] [place], [place] [id number] May, Anxiety F41.9 and Lumbago with sciatica, left side M54.42 [facility] [address] [id number], [place] [id number] Apr, Dental examination Z01.[address] [id number], [place] [id number] Apr, [facility] [id number] [place] [id number] Apr, RLS (restless legs syndrome) G25.81 ; Lumbago with sciatica, left side M54.42 and Anxiety F41.9 [facility] [id number] [place] [address] [id number] Mar, [facility] [address] [id number] [place] [id number] Mar, Insomnia, unspecified type G47.00 [facility] [id number] [place] [address] [id number] Mar, Insomnia, unspecified type G47.00 and RLS (restless legs syndrome) G25.81 [facility] [address] [facility] [address] [id number], [place] [id number] Mar, [facility] [address] [facility] [facility] [address] [id number], [place] [id number] Mar, Dental examination Z01.20 [facility] [id number] [place] [address] Mar, [facility] [id number] [place] [id number] Mar, Lumbago with sciatica, left side M54.42 and Anxiety F41.9 [facility] [address]00565100[place], [place] [address] Mar, [facility] [id number] [place] [address] [id number] Mar, Insomnia, unspecified type G47.00 [facility] [id number] [place] [id number] Mar, [facility] [id number] [place] [id number] Feb, Insomnia, unspecified type G47.00 [facility] [address] [id number] [place] [id number] Feb, Lumbago with sciatica, left side M54.42 and Anxiety F41.9 [facility] [place] [address] [id number] [place] [address] [id number] Feb, [facility] [id number] [place] [address] [id number] Feb, RLS (restless legs syndrome) G25.81 ; Lumbago with sciatica, left side M54.42 ; Overactive bladder N32.81 and Anxiety F41.9 [facility] [id number] [place] [address] [id number] Jan, Overactive bladder N32.81 and Moderate persistent asthma without complication J45.40 [facility] [id number] [place] [address] [id number] Jan, Lumbago with sciatica, left side M54.42 and Insomnia, unspecified type G47.00 [facility] [id number] [place] [address] [id number] Jan, RLS (restless legs syndrome) G25.81 [facility] [id number] [place] [address] [id number] Dec, Overactive bladder N32.81 and Other chronic pain G89.29 [facility] [id number] [place] [address] [id number] Dec, Lumbago with sciatica, left side M54.42 ; Insomnia, unspecified type G47.00 and RLS (restless legs syndrome) G25.81 [facility] [id number] [place] [id number] Nov, Overactive bladder N32.81 [facility] [id number] [place] [address] [id number] Nov, [facility] [id number] [place] [address] [id number] Nov, Lumbago with sciatica, left side M54.42 ; Insomnia, unspecified type G47.00 and RLS (restless legs syndrome) G25.81 [facility] [id number] [place] [id number] Nov, Constipation, unspecified constipation type K59.00 ; Lumbago with sciatica , left side M54.42 ; Insomnia, unspecified type G47.00 ; Bloating R14.0 and Encounter for immunization Z23 [facility] [address] [place] [address] AVE [id number], [place] [id number] Oct, Dental examination Z01.20 [facility] [place] [id number] [place] [address] [id number] Oct, RLS (restless legs syndrome) G25.81 ; Lumbago with sciatica, left side M54.42 and Insomnia, unspecified type G47.00 [facility] [id number] [place] [id number] Sep, Moderate persistent asthma without complication J45.40 [facility] [address] [id number], [place] [id number] Sep, Dental examination Z01.20 [facility] [place] [address]00565100[place] 9324[address]647 Sep, Lumbago with sciatica, left side M54.42 and Insomnia, unspecified type G47.00 [facility] [address]00565100[place] [id number] Sep, RLS (restless legs syndrome) G25.81 [facility] [address] [facility] [id number], [place] [address]456[address]- [address] Aug, [facility] [id number] [place] [address] [id number] Aug, [facility] [address] [id number] [place] [address] Aug Insomnia, unspecified type G47.00 [facility] [address] [id number], [place] [id number] Aug, Dental examination Z01.20 [facility] [place] [address]00565100[place] [id number] Aug, Vaginal discharge N89.8 [facility] [place] [address]00565100[place] 814484700 Aug, RLS (restless legs syndrome) G25.81 [facility] AR[address]UFFIN[address]00565100[place] 868737[address] Aug, Dental examination Z01.20 [facility] ARNOLDRUFFIN[address]00565100[place], [place] [id number] Jul, Dental examination Z01.20 [facility] [place] [id number] [place] [id number] Jul, Lumbago with sciatica, left side M54.42 ; RLS (restless legs syndrome) G25.81 ; Moderate persistent asthma without complication J45.40 and Other specified hypothyroidism E03.8 [facility] [address] [place] [address] [id number] Jul, Insomnia, unspecified type G47.00 and Lumbago with sciatica, left side M54.42 [facility] [address] [id number], [place] [id number] Jul, Dental examination Z01.20 [facility] ARNOLDRUFFIN[address] [place] [address] [id number] May, Dental examination Z01.20 and Dental caries K02.9 [place] [id number] [place] [address]3749[address] May, [place] [id number] [place] [address] [id number] May, RLS (restless legs syndrome) G25.81 [place] [id number] [place] [id number] May, Lumbago with sciatica, left side M54.42 ; Insomnia, unspecified type G47.00 and RLS (restless legs syndrome) G25.81 [facility] [id number] [place] [id number] Apr, Muscle spasms of both lower extremities M62.838 ; Constipation, unspecified constipation type K59.00 and Insomnia, unspecified type G47.00 [facility] [place] [address] [id number] [place] [id number] Apr, [facility] [place] [id number] [place] [address] [id number] Apr, Anxiety F41.9 and Lumbago with sciatica, left side M54.42 [facility] [address]00565100[place] [id number] Mar, Encounter for dental examination and cleaning without abnormal findings Z01.20 [facility] [address] [id number] [place] [id number] Mar, Muscle cramp, nocturnal R25.2 [facility] [place] [id number] [place] [address] [id number] 14 Mar, 2016 RLS (restless legs syndrome) G25.81 ; Anxiety F41.9 ; Lumbago with sciatica, left side M54.42 ; Insomnia, unspecified type G47.00 and Muscle cramps R25.2 [facility] [address]00565100[place], [place] [address] Mar, [facility] [place] [id number] [place] [id number] Feb, [facility] [place] [id number] [place] [address] [id number] Feb, [facility] [place] [id number] [place] [address] [id number] Jan, [facility] [place] [id number] [place] [address] [id number] Jan, Moderate persistent asthma without complication J45.40 [facility] [place] [address] [id number] [place] [id number] Jan, [facility] [place] [id number] [place] [address] [id number] Jan, [facility] [place] [id number] [place] [address] [id number] Jan, [facility] [place] [id number] [place] [id number] Jan, [facility] [place] [address] [id number] [id number] Dec, [facility] [address] [id number], [place] 06785224- [address] Dec, [facility] [place] [address] [id number] [place] [id number] Nov, [facility] [address] [id number] [place] [id number] Nov, [facility] [address] [address] [id number], [place] [id number] Nov, Dental examination Z01.20 [facility] [address] [id number] [place] [id number] Nov, Bipolar depression F31.30 [facility] [id number] [place] [address] [id number] Nov, Lumbago with sciatica, left side M54.42 ; Allergic rhinitis, unspecified allergic rhinitis type J30.9 ; Bipolar depression F31.30 ; Moderate persistent asthma without complication J45.40 ; Encounter for immunization Z23 ; Abdominal spasms R10.9 and Benign essential hypertension I10 [facility] [address] [id number] [place] [id number] Nov, [facility] [place] [address] [id number] [place] [id number] Oct, [facility] [address] [id number] [place] [id number] Oct, [facility] [place] [address] [id number] [place] [id number] Sep, [facility] [address] [id number] [place] [id number] Sep, [facility] [address] [id number] [place] [id number] Sep, [facility] ZUNIGA [facility] [address] [id number] [place] [address] Sep [facility] [address] [id number] [place] [id number] Aug, [facility] [address] [id number], [place] [id number] Aug, Dental examination Z01.20 [facility] [address] [facility] [id number] [place] [id number] Aug, [facility] [address] [id number], [place] [id number] Aug, [place] [address] [place] [id number] [place] [id number] Jul, Allergic rhinitis, unspecified allergic rhinitis type J30.9 ; RLS ( restless legs syndrome) G25.81 ; Lumbago with sciatica, left side M54.42 and Other chronic pain G89.29 [facility] [id number] [place] [address] [id number] Jul, Allergic rhinitis, unspecified allergic rhinitis type J30.9 and RLS ( restless legs syndrome) G25.81 [address]00565100[place] [id number] Jul, [place] [id number] [place] [address] [id number] June, Hypo-osmolality and hyponatremia E87.1 and Benign essential hypertension I10 [facility] [id number] [place] 566895086 June, [address] [place] [address] [id number] June, Moderate persistent asthma without complication J45.40 ; RLS (restless legs syndrome) G25.81 ; Benign essential hypertension I10 ; Anxiety F41.9 and Constipation, unspecified constipation type K59.00 [facility] [address]on[address] [place] [address] [id number], [place] [id number] June, Encounter for dental examination and cleaning without abnormal findings Z01.20 [facility] [place] [address] [place] [address] [id number], [place] [id number] June, [facility] [address] [place] [id number] [place] [id number] June, [address]00565100[place] 280545071 June, [facility] [address] [id number] [place] [id number] May, [facility] [address] [id number] [place] [id number] May, [facility] [address] [id number] [place] [id number] May, [facility] [address] [id number] [place] [id number] May, [facility] [address] [id number] [place] [id number] Apr, [facility] [address] [id number] [place] [phone] Apr, Anxiety F41.9 [facility] [address] [id number] [place] [id number] Apr, [facility] [address] [id number] [place] [id number] Mar, [facility] [id number] [place] [address] [id number] Mar, [facility] [address] [id number] [place] [id number] Mar, [facility] [address] [id number] [place] [id number] Mar, RLS (restless legs syndrome) G25.81 ; Anxiety F41.9 and Moderate persistent asthma without complication J45.40 [facility] [address] [id number] [place] [id number] Mar, [facility] [address] [id number] [place] [id number] Mar, [facility] [address] [id number] [place] [id number] Feb, [facility] [address] [id number] [place] [id number] Feb, [facility] [address] [id number] [place] [id number] Feb, [address] [id number], [place] 780552790 Feb, Encounter for dental examination Z01.20 [facility] [address] [place] [address] [id number] [place] [id number] Feb, [facility] [place] [id number] [place] [address] [id number] Jan, [facility] [id number] [place] 300754582 Jan, Benign essential hypertension I10 [facility] [place] [id number] [place] [address] [id number] Jan, RLS (restless legs syndrome) G25.81 and Gastroesophageal reflux disease, esophagitis presence not specified K21.9 [facility] [place] [id number] [place] [address] [id number] Jan, [facility] [place] [id number] [place] [address] [id number] Jan, [facility] [id number] [place] [address] [id number] Dec, Anxiety F41.9 ; Benign essential hypertension I10 and RLS (restless legs syndrome) G25.81 [facility] [place] [id number] [place] [id number] Dec, RLS (restless legs syndrome) G25.81 ; Esophageal reflux 530.81 and Anxiety F41.9 [facility] [address] [id number], [place] [id number] Dec, [facility] [id number] [place] [id number] Nov, Anxiety F41.9 [facility] [id number] [place] [address] [id number] Nov, Anxiety F41.9 ; Encounter for immunization Z23 ; Benign essential hypertension I10 ; RLS (restless legs syndrome) G25.81 and Rhinitis J31.0 [facility] [address]00565100[place], [place] 26511039- [address] Nov, [facility] [address] [place] [address] [id number] [place] [id number] Nov, [facility] [address] [id number], [place] [id number] Nov, [facility] [address] [facility] [id number] [place] [id number] Nov, [facility] [place] [address] [facility] [id number], [place] [id number] Nov, [facility] [facility] [address] [id number], [place] 707479100 Oct, [facility] [address] [facility] [id number], [place] [id number] Oct, [facility] [address] [facility] [id number] [place] 497187432 Oct, [facility] [id number] [place] [id number] Oct, Esophageal reflux 530.81 ; Asthma, unspecified, unspecified status 493.90 and Essential hypertension, benign 401.1 [facility] [place] [address] [id number] [place] 118489636 Oct, [facility] [address] [id number] [place] [id number] Oct, [facility] [address] [id number] [place] [id number] Oct, [facility] [address] [id number] [place] [id number] Sep, [facility] [address] [place] [id number] [place] 113641609 Sep, Esophageal reflux 530.81 ; Insomnia 780.52 and Essential hypertension, benign 401.1 [facility] [address] [id number] [place] [id number] Sep, [facility] [address] [id number] [place] [id number] Sep, [facility] [address] [id number] [place] [id number] Sep, [facility] [address] [id number] [place] [id number] Sep, [facility] [address] [id number] [place] [id number] Sep, [facility] [address] [id number] [place] [id number] Sep, [facility] [address] [id number] [place] 908771916 Sep, [facility] [address] [id number] [place] 108653924 Sep, Essential hypertension, benign 401.1 ; Hyponatremia 276.1 and 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 [facility] [id number] [place] [address] [id number] Sep, [facility] [address] [id number] [place] [address] [id number] Aug, [facility] [address] [id number] [place] [address] [id number] Aug, [facility] [address] [id number] [place] [address] [id number] Jul, [facility] [address] [id number] [place] [address] [id number] Jul, [facility] [address] [id number] [place] [address] [id number] Jul, [facility] [address] [id number] [place] [address] [id number] Jul, [facility] [address] [id number] [place] [address] [id number] Jul, [facility] [address] [id number] [place] [address] [id number] Jul, Insomnia 780.52 [facility] [address] [id number] [place] [address] [id number] June, Muscle stiffness 728.9 and Insomnia 780.52 [facility] [address] [id number] [place] [id number] June, [facility] [address] [id number] [place] [id number] June, [facility] [address] [id number] [place] [id number] June, [facility] [address] [id number] [place] [id number] June, [facility] [address] [facility] [id number] [place] [id number] May, [facility] [address] [facility] [id number], [place] [address] May, [facility] [address] [facility] [id number], [place] [address] May, [facility] [address] [facility] [id number] [place] [id number] Apr, [facility] [address] [facility] [id number], [place] [address] Apr, [facility] [address] [facility] [id number] [place] [id number] Apr, [facility] [id number], [place] [address] Apr, [facility] [address]00565[address], [place] [address] Apr, [facility] [address]65[address], [place] [address] Apr, [facility] [address] [facility] [id number] [place] [id number] Apr, [facility] [address]65[address], [place] [address] Apr, [facility] [address] [id number] [place] [id number] Mar, [facility] [address] [id number], [place] [address] Mar, [facility] [address] [facility] [id number] [place] [id number] Mar, [facility] [address] [facility] [id number], [place] [address] Mar, [facility] [address] [facility] [id number] [place] [id number] Mar, [facility] [address] [id number], [place] [address] Mar, [facility] [address] [id number], [place] [address] Mar, [facility] [address] [id number] [place] [id number] Feb, [facility] [address] [facility] [id number], [place] [address] Feb, [facility] [address] [id number] [place] [id number] Feb, [facility] [address] [id number] [place] [id number] Feb, [facility] [address] [id number] [place] [id number] Feb, [facility] [address]65[address], [place] [address] Feb, [facility] [id number] [address] Feb, [facility] [id number], [place] [address] Feb, [facility] [address] [id number] [place] [id number] Feb, [facility] [id number], [place] [address] Feb, [facility] [address] [id number] [place] [id number] Feb, [facility] [address] [facility] [id number], [place] [address] Feb, [facility] [address] [facility] [id number], [place] [address] Jan, [facility] [address] [facility] [id number] [place] [id number] Jan, [facility] [address] [facility] [id number], [place] [address] Jan, [facility] [address] [facility] [id number] [place] [id number] Jan, [facility] [address] [id number], [place] [address] Jan, [facility] [address] [id number] [place] [id number] Jan, [facility] [address]65[address], [place] [address] Jan, [facility] [address]65[address], [place] [address] Jan, [facility] [address] [id number] [place] [id number] Jan, [facility] [address]65[address], [place] [address] Jan, [facility] [address]65[address], [place] [address] June, IMMUNIZATIONS No Known Immunizations SOCIAL HISTORY Never Assessed REASON FOR VISIT RX-Klonopin refill PLAN OF CARE VITAL SIGNS MEDICATIONS Medication Instructions Dosage Frequency Start Date End Date Duration Status Clonazepam 0.5 MG Orally Once a day at HS, PRN for RLS. Must last one month 1.5 tablet Jul, Active RESULTS No Results PROCEDURES [...]
--- OUTSIDE RECORDS SUMMARY | 2017-08-27 16:28 | XMS REPORT ---
Author Author LINDA VALERO [employer] Address Unknown Phone Unavailable Care Team Providers Care Director Oracle Name Role Phone LINDA VALERO CP Unavailable Allergies, Adverse Reactions, Alerts Substance [...] Active Problem Unspecified constipation 564.00 Active Assessment Encounter for dental examination Z01.20 Active Problem Essential hypertension, benign 401.1 Active Problem Contact dermatitis and other eczema, due to unspecified cause 692.9 Active Problem Asthma, unspecified, unspecified status 493.90 Active Medications Medication Code System Code Instructions Start Date End Date Status Dosage Premarin [facility] [address]-90 0.9 MG Orally Once a day Jan 14, 2014 1 tablet Gabapentin [facility] [address]-38 300 MG Orally 1 tab in am and midday, 2 tabs at hs Mar 04, 2014 1-2 Tablet Zolpidem Tartrate [facility] [address]-23 10 MG Orally Once a day must last 1 m 1 tablet at bedtime as needed HydrOXYzine HCl [facility] [address]-19 25 MG Orally 3 times a day Nov 20, 2014 1 tablet as needed Clonazepam [facility] [address]-58 0.5 MG Orally Once a day at HS, PRN for RLS. Must last one month August 04, 2014 1 tablet Amoxicillin [facility] [address]-53 500 MG Orally Three times a day Feb 22, 2015 Mar 01, 2015 1 capsule tramadol [facility] 0 50 mg orally 3 times a day prn Must last 1 mo April 29, 2014 1 tablet Imdur [facility] [address]-16 30 MG Orally Once a day Oct 08, 2014 1 tablet Advair Diskus [facility] [address]-23 250-50 MCG/DOSE Inhalation Twice a day Mar 03, 2014 inhale 1 puff Flonase [facility] [address]-27 50 MCG/ACT Nasally 2 times a day Nov 30, 2014 1 spray in each nostril Zyprexa [facility] [address]-70 20 MG Orally Once a day Jan 29, 2014 1 tablet Lamictal [facility] [address]-02 100 MG Orally Once a day Sep 24, 2014 1 tablet MiraLax [facility] [address]-43 17 gram/dose Orally Once a day April 29, 2014 1 packet mixed with 8 ounces of fluid ProAir HFA [facility] [address]-56 108 (90 Base) MCG/ACT Inhalation 4 times a day for wheezing or SOB Oct 21, 2014 2 puffs as needed Protonix [facility] [address]-70 40 MG Orally Once a day 1 tablet Levothyroxine Sodium [facility] [address]-41 50 MCG Orally Once a day 1 tablet Gl[place]water [facility] [address]-51 5-325 MG Orally every 6 hrs Feb 22, 2015 Feb 25, 2015 1 tablet as needed Lisinopril-Hydrochlorothiazide [facility] [address]-11 20-12.5 MG Orally Once a day Oct 15, 2014 1 tablet BusPIRone HCl [facility] [address]-36 15 MG Orally Three times a day June 09, 2014 1 tablet Procedures Procedure Coding System Code Date INTRAORL-PERIAPICAL 1 FILM 02844 CPT-4 D0220 Feb 22, 2015 LTD ORAL EVALUATION - PROBLEM FOCUS CPT-4 D0140 Feb 22, 2015 Vital Signs Date/Time: Feb 22, 2015 Blood Pressure Diastolic 77 mmHg Blood Pressure Systolic 134 mmHg Cardiac Monitoring Heart Rate 75 bpm Results No Known Results Summary Purpose [employer] Submission
--- OUTSIDE RECORDS SUMMARY | 2017-08-27 16:28 | XMS REPORT ---
Author Author AIMEE LING Organization [employer] Address Unknown Phone Unavailable Care Team Providers Care Content Strategist Name Role Phone AIMEE LING CP Unavailable [...]
--- OUTSIDE RECORDS SUMMARY | 2017-08-27 16:28 | XMS REPORT ---
Author Author AIMEE LING Organization [employer] Address Unknown Phone Unavailable Care Team Providers Care Cloth Colors Examiner Name Role Phone AIMEE LING CP Unavailable [...] Instructions Start Date End Date Status Dosage Hydrochlorothiazide [facility] [address]-00 25 MG Orally Once a day Dec 30, 2015 1 tablet Results No Known Results Summary Purpose [employer] Submission
--- OUTSIDE RECORDS SUMMARY | 2017-08-27 16:28 | XMS REPORT ---
Author Author AIMEE LING [facility] Address [address] [place] [address] Care Team Providers Care Bottle Assembler Name Role Phone AIMEE LING Unavailable PROBLEMS Type Condition ICD9-CM Code [id number] Code Onset Dates Condition Status SNOMED Code Problem Anxiety F41.9 Active 29973903 Problem Moderate persistent asthma without complication J45.40 Active 453818691 Problem Gastroesophageal reflux disease, esophagitis presence not specified K21.9 Active 597623402 Problem Bipolar depression F31.30 Active 90994034 Problem Abdominal spasms R10.9 Active 67689622 Problem Constipation, unspecified constipation type K59.00 Active 37526031 Problem Encounter for dental examination and cleaning without abnormal findings Z01.20 Active 993828784 Problem Lumbago with sciatica, left side M54.42 Active 319638952 Problem Allergic rhinitis, unspecified allergic rhinitis type J30.9 Active 81914384 Problem 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
--- OUTSIDE RECORDS SUMMARY | 2017-08-27 16:29 | XMS REPORT ---
Author Author AIMEE LING [facility] Address [address] [place] [address] Care Team Providers Care Retail Clerk Name Role Phone AIMEE LING Unavailable PROBLEMS Type Condition ICD9-CM Code DRY25-BG Code Onset Dates Condition Status SNOMED Code Problem Allergic rhinitis, unspecified allergic rhinitis type J30.9 Active 80590249 Problem Bipolar depression F31.30 Active 56605817 Problem Lumbago with sciatica, left side M54.42 Active 569081970 Problem Other chronic pain G89.29 Active 24268380 Problem Overactive bladder N32.81 Active 569548315 Problem Insomnia, unspecified type G47.00 Active 409678397 Problem Abdominal spasms R10.9 Active 21040030 Problem Other specified hypothyroidism E03.8 Active 09116004 Problem Muscle spasms of both lower extremities M62.838 Active 204962943 Problem 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 14155138 Problem Hyponatremia 276.1 Active 23263903 Problem Insomnia 780.52 Active 204049196 Problem Anxiety F41.9 Active 59385822 Problem Gastroesophageal reflux disease, esophagitis presence not specified K21.9 Active 739678695 Problem RLS (restless legs syndrome) G25.81 Active 89901351 Problem Moderate persistent asthma without complication J45.40 Active 797313460 Problem Benign essential hypertension I10 Active 6886438 Problem Constipation, unspecified constipation type K59.00 Active 54206868 ALLERGIES No Information ENCOUNTERS Encounter Location Date Diagnosis [facility] [address] [id number] [place] [phone] Oct, [facility] [address] [id number] [place] [id number] Oct, [facility]ITALGrap[facility] TechnologiesRU[address] [id number] [place] [id number] Jul, [facility] [place] [id number], [place] [id number] Jul, [facility] [place] [address]00565100[place] [id number] Jul, Back muscle spasm M62.830 and RLS (restless legs syndrome) G25.81 [facility] [place] [id number], [place] [id number] Jul, Back spasm M62.830 [facility] [place] [id number] [place] [address] [id number] Jul, Back spasm M62.830 and Anxiety F41.9 [facility] [address] [place] [address] [phone] June, Insomnia, unspecified type G47.00 ; Overactive bladder N32.81 and Back spasm M62.830 [facility] [place] [address] [id number], [place] [id number] June, Anxiety F41.9 and Lumbago with sciatica, left side M54.42 [facility] [address]00565100[place] [id number] May, Anxiety F41.9 and Lumbago with sciatica, left side M54.42 [address]00565100[place], [place] [id number] Apr, Dental examination Z01.20 [address]00565100[place] [id number] Apr, [facility] [address]00565100[place] [id number] Apr, RLS (restless legs syndrome) G25.81 ; Lumbago with sciatica, left side M54.42 and Anxiety F41.9 [address]00565100[place] [id number] Mar, [facility] [address] [place] [address] [phone] Mar, Insomnia, unspecified type G47.00 [facility] [address]00565100[place] [id number] Mar, Insomnia, unspecified type G47.00 and RLS (restless legs syndrome) G25.81 [facility] [address] [facility] [address] [address] [id number], [place] [id number] Mar, [facility] ARNOLDRUFFIN [address] [facility] [id number], [place] [id number] Mar, Dental examination Z01.20 [facility] [address] [place] [id number] [place] [address] [phone] Mar, [facility] [id number] [place] [address] [id number] Mar, Lumbago with sciatica, left side M54.42 and Anxiety F41.9 [facility] [address]00565100[place], [place] [phone]- [address] Mar, [facility] [address] [id number] [place] [address] [id number] Mar, Insomnia, unspecified type G47.00 [facility] [place] [id number] [place] [address] [phone] Mar, [facility] [place] [address] [id number] [place] [address] [phone] Feb, Insomnia, unspecified type G47.00 [facility] [place] [address] [id number], [place] [id number] Feb, Lumbago with sciatica, left side M54.42 and Anxiety F41.9 [facility] [place] [id number] [place] [address] [phone] Feb, [facility] [place] [address] [id number] [place] [address] [phone] Feb, RLS (restless legs syndrome) G25.81 ; Lumbago with sciatica, left side M54.42 ; Overactive bladder N32.81 and Anxiety F41.9 [facility] [place] [address] [id number], [place] [id number] Jan, Overactive bladder N32.81 and Moderate persistent asthma without complication J45.40 [facility] [place]00565100[place], [place] [id number] Jan, Lumbago with sciatica, left side M54.42 and Insomnia, unspecified type G47.00 [place] [id number] [place] [address] [phone] Jan, RLS (restless legs syndrome) G25.81 [place] [id number] [place] [address] [phone] Dec, Overactive bladder N32.81 and Other chronic pain G89.29 [place] [address] [place] [id number] [place] [address] [phone] Dec, Lumbago with sciatica, left side M54.42 ; Insomnia, unspecified type G47.00 and RLS (restless legs syndrome) G25.81 [facility] [id number], [place] [id number] Nov, Overactive bladder N32.81 [place] [id number] [place] [address] [phone] Nov, [place] [address] [id number] [place] [address] [id number] Nov, Lumbago with sciatica, left side M54.42 ; Insomnia, unspecified type G47.00 and RLS (restless legs syndrome) G25.81 [address]00565100[place] [id number] Nov, Constipation, unspecified constipation type K59.00 ; Lumbago with sciatica , left side M54.42 ; Insomnia, unspecified type G47.00 ; Bloating R14.0 and Encounter for immunization Z23 [facility] [address] [id number][place] [phone] Oct, Dental examination Z01.20 [address] [place] [address] [id number] Oct, RLS (restless legs syndrome) G25.81 ; Lumbago with sciatica, left side M54.42 and Insomnia, unspecified type G47.00 [address] [place] [address] [phone] Sep, Moderate persistent asthma without complication J45.40 [facility] [address] [facility] [address] [id number], [place] [id number] Sep, Dental examination Z01.20 [facility] [place] [id number], [place] [id number] Sep, Lumbago with sciatica, left side M54.42 and Insomnia, unspecified type G47.00 [facility] [place] [id number], [place] [id number] Sep, RLS (restless legs syndrome) G25.81 [facility] [address]00565100[place] [phone]- [address] Aug, [facility] [place] [id number], [place] [id number] Aug, [facility] [place] [address] [place], [place] [address] [id number] [place] [address] Aug Insomnia, unspecified type G47.00 [facility] [address] [address] [facility] [facility] [facility] [address] [id number], [place] [id number] Aug, Dental examination Z01.20 [facility] [place] [id number], [place] [id number] Aug, Vaginal discharge N89.8 [facility] [place] [id number], [place] [id number] Aug, RLS (restless legs syndrome) G25.81 [facility] [address] [facility] [facility] [id number], [place] [id number] Aug, Dental examination Z01.20 [facility] [address] [facility] [address] [id number], [place] [id number] Jul, Dental examination Z01.20 [facility] [place] [id number], [place] [id number] Jul, Lumbago with sciatica, left side M54.42 ; RLS (restless legs syndrome) G25.81 ; Moderate persistent asthma without complication J45.40 and Other specified hypothyroidism E03.8 [facility] [place] [address] [place] [id number] [id number] Jul, Insomnia, unspecified type G47.00 and Lumbago with sciatica, left side M54.42 [facility] [address] [facility] [id number][place] [id number] Jul, Dental examination Z01.20 [facility] [address] [facility] [id number], [place] [id number] May, Dental examination Z01.20 and Dental caries K02.9 [facility] [place] [address] [id number] [place] [address] [id number] May, [facility] [place] [address] [id number] [place] [address] [phone] May, RLS (restless legs syndrome) G25.81 [facility] [place] [address] [id number] [place] [address] [id number] May, Lumbago with sciatica, left side M54.42 ; Insomnia, unspecified type G47.00 and RLS (restless legs syndrome) G25.81 [facility] [place] [id number] [place] [address] [id number] Apr, Muscle spasms of both lower extremities M62.838 ; Constipation, unspecified constipation type K59.00 and Insomnia, unspecified type G47.00 [facility] [place] [id number] [place] [address] [phone] Apr, [place] [id number] [place] [address] [id number] Apr, Anxiety F41.9 and Lumbago with sciatica, left side M54.42 [facility] [address] [id number], [place] [id number] Mar, Encounter for dental examination and cleaning without abnormal findings Z01.20 [facility] [place] [id number], [place] [id number] 20 Mar, 2016 Muscle cramp, nocturnal R25.2 [facility] [place] [id number] [place] [address] [id number] 14 Mar, 2016 RLS (restless legs syndrome) G25.81 ; Anxiety F41.9 ; Lumbago with sciatica, left side M54.42 ; Insomnia, unspecified type G47.00 and Muscle cramps R25.2 [facility] [address] [id number] [place] [address] [phone] Mar, [facility] [id number] [place] [address] [id number] Feb, [facility] [address] [place] [address] [id number] Feb, [facility] [address] [id number] [place] [address] [id number] Jan, [facility] [address] [place] [address] [id number] Jan, Moderate persistent asthma without complication J45.40 [facility] [address] [id number] [place] [address] [phone] Jan, [facility] [address] [id number] [place] [address] [id number] Jan, [facility] [address] [id number] [place] [address] [id number] Jan, [facility] [address] [id number] [place] [address] [id number] Jan, [facility] [address] [id number] [place] [address] [phone] Dec, [facility] [address] [place] [address] [phone] Dec, [facility] [address] [id number] [place] [address] [id number] Nov, [facility] [address] [id number] [place] [address] [phone] Nov, [place] [address] [facility] [id number] [place] [address] [phone] Nov, Dental examination Z01.20 [facility] [address] [id number] [place] [address] [phone] Nov, Bipolar depression F31.30 [facility] [address] [id number] [place] [address] [phone] Nov, Lumbago with sciatica, left side M54.42 ; Allergic rhinitis, unspecified allergic rhinitis type J30.9 ; Bipolar depression F31.30 ; Moderate persistent asthma without complication J45.40 ; Encounter for immunization Z23 ; Abdominal spasms R10.9 and Benign essential hypertension I10 [facility] [place] [address] [id number], [place] [id number] Nov, [facility] [place] [address] [id number], [place] [id number] Oct, [facility] [place] [address] [id number], [place] [id number] Oct, [facility] [place] [address] [id number] [place] [address] [phone] Sep, [facility] [place] [address] [id number], [place] [phone] Sep, [facility] [address] [id number], [place] [id number] Sep, [place] [address] [id number] [place] [address] Sep [facility] [address] [id number], [place] [phone] Aug, [facility] [address] [id number], [place] [id number] Aug, Dental examination Z01.20 [facility] [address] [id number], [place] [id number] Aug, [place] [address] [facility] [address] [id number], [place] [id number] Aug, [facility] [address] [id number], [place] [phone] Jul, Allergic rhinitis, unspecified allergic rhinitis type J30.9 ; RLS ( restless legs syndrome) G25.81 ; Lumbago with sciatica, left side M54.42 and Other chronic pain G89.29 [facility] [address] [id number], [place] [id number] Jul, Allergic rhinitis, unspecified allergic rhinitis type J30.9 and RLS ( restless legs syndrome) G25.81 [facility] [place] [address] [id number] [place] [address] [id number] Jul, [facility] [place] [address] [id number] [place] [address] [id number] June, Hypo-osmolality and hyponatremia E87.1 and Benign essential hypertension I10 [facility] [place] [address] [id number] [place] [address] [phone] June, [facility] [place] [address] [id number] [place] [address] [id number] June, Moderate persistent asthma without complication J45.40 ; RLS (restless legs syndrome) G25.81 ; Benign essential hypertension I10 ; Anxiety F41.9 and Constipation, unspecified constipation type K59.00 [facility] [address]UFFIN[address] [id number] [place] [address] [phone] June, Encounter for dental examination and cleaning without abnormal findings Z01.20 [facility] [address]FFIN[address] [id number] [place] [address] [phone] June, [facility] [place] [address] [id number] [place] [address] [phone] June, [facility] [place] [address] [id number] [place] [address] [phone] June, [facility] [place] [address] [id number] [place] [address] [id number] May, [facility] [place] [address] [id number] [place] [address] [id number] May, [facility] [place] [address] [id number] [place] [address] [phone] May, [facility] [place] [address] [id number] [place] [address] [phone] May, [facility] [place] [address] [id number] [place] [address] [id number] Apr, [facility] [place] [address] [id number] [place] [address] [id number] Apr, Anxiety F41.9 [facility] [place] [address] [id number] [place] [address] [phone] Apr, [facility] [place] [address] [id number], [place] [id number] Mar, [facility] [address] [id number] [place] [address] [id number] Mar, [facility] [place] [address] [id number] [place] [address] [id number] Mar, [facility] [address] [id number] [place] [address] [id number] Mar, RLS (restless legs syndrome) G25.81 ; Anxiety F41.9 and Moderate persistent asthma without complication J45.40 [facility] [address] [id number] [place] [address] [id number] Mar, [facility] [address] [id number] [place] [address] [id number] Mar, [facility] [id number] [place] [address] [id number] Feb, [facility] [address] [id number] [place] [address] [phone] Feb, [facility] [id number] [place] [address] [id number] Feb, [address]005[address]100[place], [place] [phone] Feb, Encounter for dental examination Z01.20 [facility] [address] [id number] [place] [address] [phone] Feb, [facility] [address] [place] [address] [id number] [place] [address] [phone] Jan, [facility] [id number] [place] [address] [phone] Jan, Benign essential hypertension I10 [facility] [address] [id number] [place] [address] [phone] Jan, RLS (restless legs syndrome) G25.81 and Gastroesophageal reflux disease, esophagitis presence not specified K21.9 [facility] [address] [id number] [place] [address] [id number] Jan, [facility] [address] [place] [address] [id number] [place] [address] [id number] Jan, [facility] [place] [address] [facility] [id number], [place] [phone] Dec, Anxiety F41.9 ; Benign essential hypertension I10 and RLS (restless legs syndrome) G25.81 [facility] [place] [id number], [place] [id number] Dec, RLS (restless legs syndrome) G25.81 ; Esophageal reflux 530.81 and Anxiety F41.[address] [facility] [address] [id number], [place] [id number] Dec, [facility] [place] [address] [place] [id number] [place] [address] [phone] Nov, Anxiety F41.9 [facility] [place] [id number], [place] [phone] Nov, Encounter for immunization Z23 ; Anxiety F41.9 ; Benign essential hypertension I10 ; RLS (restless legs syndrome) G25.81 and Rhinitis J31.0 [facility] [address] [id number] [address] Nov, [facility] [place] [id number], [place] [phone] Nov, [facility] [place] [address] [facility] [address] [id number], [place] [id number] Nov, [facility] [place] [address] [id number], [place] [phone] Nov, [place] [id number] [phone] Nov, [facility] [place] [address] [facility] [address] [id number], [place] [id number] Oct, [place] [id number] [place] [address] [phone] Oct, [facility] [place] [address] [id number], [place] [phone] Oct, [facility] [place] [address] [place] [address] [id number], [place] [phone] Oct, Asthma, unspecified, unspecified status 493.90 ; Esophageal reflux 530.81 and Essential hypertension, benign 401.1 [facility] [place] [address] [id number] [place] [address] [phone] Oct, [facility] [place] [address] [id number] [place] [address] [phone] Oct, [facility] [place] [address] [id number] [place] [address] [phone] Oct, [facility] [place] [address] [place] [address] [phone] Sep, [facility] [place] [address] [id number] [place] [address] [phone] Sep, Esophageal reflux 530.81 ; Insomnia 780.52 and Essential hypertension, benign 401.1 [facility] [place] [address] [id number] [place] [address] [id number] Sep, [facility] [address] [id number] [place] [address] [id number] Sep, [facility] [address] [id number] [place] [address] [id number] Sep, [facility] [address] [id number] [place] [address] [id number] Sep, [facility] [address] [id number] [place] [address] [id number] Sep, [facility] [address] [id number] [place] [address] [id number] Sep, [facility] [address] [id number] [place] [address] [id number] Sep, [facility] [address] [id number] [place] [address] [id number] Sep, Essential hypertension, benign 401.1 ; Hyponatremia 276.1 and 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 [facility] [place] [address] [id number] [place] [address] [id number] Sep, [facility] [address] [id number] [place] [address] [id number] Aug, [facility] [address] [id number] [place] [address] [id number] Aug, [facility] [place] [address] [id number] [id number] Jul, [facility] [place] [address] [id number] [place] [id number] Jul, [facility] [address] [id number] [place] [id number] Jul, [facility] [address] [id number] [id number] Jul, [facility] [address] [id number] [place] [id number] Jul, [facility] [address] [id number] [place], [place] [id number] Jul, Insomnia 780.52 [facility] [address] [id number] [place] [id number] June, Muscle stiffness 728.9 and Insomnia 780.52 [facility] [address] [id number] [id number] June, [facility] [address] [id number][place] [id number] June, [facility] [address] [id number][place] [id number] June, [facility] [id number][place] [id number] June, [facility] [address] [id number][place] [id number] May, [facility] [address]005[address], [place] [address] May, [facility] [place] [facility] [address]00565[address], [place] [address] May, [facility] [id number][place] [id number] Apr, [facility] [id number] [place] [address] Apr, [facility] [id number][place] [id number] Apr, [facility] [address] [id number], [place] [address] Apr, [facility] [place] [facility] [address] [facility] [id number], [place] [address] Apr, [facility] [place] [facility] [address]65[address], [place] [address] Apr, [facility] [address] [facility] [id number][place] [id number] Apr, [facility] [place] [facility] [address]65[address], [place] [address] Apr, [facility] [address] [facility] [id number][place] [id number] Mar, [facility] [place] [facility] [address]65[address], [place] [address] Mar, [facility] [id number], [place] [id number] Mar, [facility] [place] [facility] [address]65[address], [place] [address] Mar, [facility] [id number], [place] [id number] Mar, [facility] [place] [facility] [address]65[address], [place] [address] Mar, [facility] [place] [facility] [address] [id number], [place] [address] Mar, [facility] [address] [facility] [id number][place] [id number] Feb, [facility] [place] [facility] [address] [facility] [id number], [place] [address] Feb, [facility] [address] [id number], [place] [id number] Feb, [facility] [address] [id number], [place] [id number] Feb, [facility] [address] [id number], [place] [id number] Feb, [facility] [place] [facility] [address] [facility] [id number], [place] [address] Feb, [facility] [place] [facility] [address] [facility] [id number] [place] [address] Feb, [facility] [place] [facility] [address] [facility] [id number], [place] [address] Feb, [facility] [address] [facility] [id number], [place] [id number] Feb, [facility] [place] [facility] [address] [facility] [id number] [place] [address] Feb, [facility] [address] [facility] [id number], [place] [id number] Feb, [facility] [place] [facility] [address] [facility] [id number], [place] [address] Feb, [facility] [place] [facility] [address] [facility] [id number], [place] [address] Jan, [facility] [address] [facility] [id number], [place] [id number] Jan, [facility] [address] [facility] [id number], [place] [address] Jan, [facility] [address] [facility] [id number][place] [id number] Jan, [facility] [place] [facility] [address] [facility] [id number], [place] [address] Jan, [facility] [address] [facility] [id number], [place] [id number] Jan, [facility] [place] [facility] [address] [facility] [id number], [place] [address] Jan, [facility] [place] [facility] [address] [facility] [id number], [place] [address] Jan, [facility] [address] [facility] [id number], [place] [id number] Jan, [facility] [place] [facility] [address] [facility] [id number], [place] [address] Jan, [facility] [address] [facility] [id number] [place] [address] June, IMMUNIZATIONS No Known Immunizations SOCIAL HISTORY Never Assessed REASON FOR VISIT Medication question regarding Gabapentin PLAN OF CARE VITAL SIGNS MEDICATIONS Unknown [...] Surgical History Esophagus stretched 2017 Hospitalization History [facility] for hyponatremia, change in mental status, angioedema 09/2014
--- OUTSIDE RECORDS SUMMARY | 2017-08-27 16:30 | XMS REPORT ---
Author Author AIMEE LING [facility] Address [address] [place] [address] Care Team Providers Care Graduate Teaching Associate Name Role Phone AIMEE LING Unavailable PROBLEMS Type Condition ICD9-CM Code PRM20-ZU Code Onset Dates Condition Status SNOMED Code Problem Anxiety F41.9 Active 30556367 Problem Moderate persistent asthma without complication J45.40 Active 245418254 Problem Gastroesophageal reflux disease, esophagitis presence not specified K21.9 Active 500535129 Problem Bipolar depression F31.30 Active 12951751 Problem Abdominal spasms R10.9 Active 99823472 Problem Constipation, unspecified constipation type K59.00 Active 88506073 Problem Encounter for dental examination and cleaning without abnormal findings Z01.20 Active 247999436 Problem Lumbago with sciatica, left side M54.42 Active 017187253 Problem Allergic rhinitis, unspecified allergic rhinitis type J30.9 Active 12590876 Problem 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 76760856 Problem Hyponatremia 276.1 Active 87320364 Problem Bipolar disorder, unspecified 296.80 Active 92768437 Problem RLS (restless legs syndrome) G25.81 Active 29411403 Problem Insomnia 780.52 Active 592013485 Problem Benign essential hypertension I10 Active 4828050 ALLERGIES Unknown Allergies SOCIAL HISTORY No smoking Hx information available PLAN OF CARE VITAL SIGNS Height 63 in 2016-01-17 Blood pressure systolic 122 mmHg 2016-01-17 Blood pressure diastolic 70 mmHg 2016-01-17 MEDICATIONS Unknown Medications RESULTS No Results PROCEDURES No Known procedures IMMUNIZATIONS No Known Immunizations
--- OUTSIDE RECORDS SUMMARY | 2017-08-27 16:30 | XMS REPORT ---
Author Author KATY MONTELONGO Organization [facility] Address [address] [place] [address] Care Team Providers Care Supervisor Residential Name Role Phone KATY MONTELONGO Unavailable PROBLEMS Type Condition ICD9-CM Code QEM50-BW Code Onset Dates Condition Status SNOMED Code Problem Allergic rhinitis, unspecified allergic rhinitis type J30.9 Active 39374260 Problem Bipolar depression F31.30 Active 35654457 Problem Lumbago with sciatica, left side M54.42 Active 521733861 Problem Other chronic pain G89.29 Active 37645669 Problem Overactive bladder N32.81 Active 454145167 Problem Insomnia, unspecified type G47.00 Active 993836030 Problem Abdominal spasms R10.9 Active 46529575 Problem Other specified hypothyroidism E03.8 Active 89679589 Problem Muscle spasms of both lower extremities M62.838 Active 191490491 Problem 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 11029825 Problem Hyponatremia 276.1 Active 07748434 Problem Insomnia 780.52 Active 215561710 Problem Anxiety F41.9 Active 78607867 Problem Gastroesophageal reflux disease, esophagitis presence not specified K21.9 Active 578630881 Problem RLS (restless legs syndrome) G25.81 Active 09953810 Problem Moderate persistent asthma without complication J45.40 Active 616700032 Problem Benign essential hypertension I10 Active 9731679 Problem Constipation, unspecified constipation type K59.00 Active 86278872 ALLERGIES No Information ENCOUNTERS Encounter Location Date Diagnosis [facility] [address] [id number] [place] [phone] June, [facility] [address] [id number] [place] [phone] Apr, Dental examination Z01.20 [facility] [address] [address] [id number], [place] [phone] Apr, [facility] [place] [address] [id number], [place] [id number] Apr, RLS (restless legs syndrome) G25.81 ; Lumbago with sciatica, left side M54.42 and Anxiety F41.9 [facility] [place] [address] [id number], [place] [id number] Mar, [facility] [place] [id number] [place] [address] [id number] Mar, Insomnia, unspecified type G47.00 [facility] [place] [id number] [place] [address] [id number] Mar, Insomnia, unspecified type G47.00 and RLS (restless legs syndrome) G25.81 [facility] [place] [address] [facility] [address] [id number], [place] [phone] Mar, [facility] [address] [id number], [place] [phone] Mar, Dental examination Z01.20 [facility] [id number] [place] [address]- [phone] Mar, [facility] [place] [id number] [place] [address] [id number] Mar, Lumbago with sciatica, left side M54.42 and Anxiety F41.9 [facility] [id number] [place] [address] 24091- 2546 Mar, [facility] [place] [address] [id number] [phone] Mar, Insomnia, unspecified type G47.00 [facility] [place] [id number], [place] [id number] Mar, [facility] [place] [id number] [place] [address] [id number] Feb, Insomnia, unspecified type G47.00 [facility] [place] [id number], [place] [id number] Feb, Lumbago with sciatica, left side M54.42 and Anxiety F41.9 [facility] [id number] [place] [address] [id number] Feb, [place] [id number] [place] [address] [id number] Feb, RLS (restless legs syndrome) G25.81 ; Lumbago with sciatica, left side M54.42 ; Overactive bladder N32.81 and Anxiety F41.9 [place] [id number] [place] [address] [id number] Jan, Overactive bladder N32.81 and Moderate persistent asthma without complication J45.40 [place] [id number] [place] [address] [id number] Jan, Lumbago with sciatica, left side M54.42 and Insomnia, unspecified type G47.00 [place] [id number] [place] [address] [id number] Jan, RLS (restless legs syndrome) G25.81 [place] [id number] [place] [address] [id number] Dec, Overactive bladder N32.81 and Other chronic pain G89.29 [place] [id number] [place] [address] [id number] Dec, Lumbago with sciatica, left side M54.42 ; Insomnia, unspecified type G47.00 and RLS (restless legs syndrome) G25.81 [place] [id number] [place] [address] [id number] Nov, Overactive bladder N32.81 [facility] [id number] [place] [address] [id number] Nov, [facility] [id number] [place] [address] [id number] Nov, Lumbago with sciatica, left side M54.42 ; Insomnia, unspecified type G47.00 and RLS (restless legs syndrome) G25.81 [facility] [id number] [place] [address] [id number] Nov, Constipation, unspecified constipation type K59.00 ; Lumbago with sciatica , left side M54.42 ; Insomnia, unspecified type G47.00 ; Bloating R14.0 and Encounter for immunization Z23 [facility] [place] [address] [facility] [address] [id number], [place] [phone] Oct, Dental examination Z01.20 [facility] [place] [id number], [place] [id number] Oct, RLS (restless legs syndrome) G25.81 ; Lumbago with sciatica, left side M54.42 and Insomnia, unspecified type G47.00 [facility] [place] [id number], [place] [id number] Sep, Moderate persistent asthma without complication J45.40 [facility] [place] [address] [place] [address] [id number], [place] [id number] Sep, Dental examination Z01.20 [facility] [place] [id number] [place] [address] [id number] Sep, Lumbago with sciatica, left side M54.42 and Insomnia, unspecified type G47.00 [facility] [place] [id number], [place] [id number] Sep, RLS (restless legs syndrome) G25.81 [facility] [address]00565100[place], [place] [phone][address] Aug, [facility] [place] [id number], [place] [id number] Aug, [facility] [address] [id number] [place] [address] Aug Insomnia, unspecified type G47.00 [facility] [place] [address] [place] [address] [id number], [place] [phone] Aug, Dental examination Z01.20 [facility] [id number], [place] [id number] Aug, Vaginal discharge N89.8 [facility] [place] [id number], [place] [phone] Aug, RLS (restless legs syndrome) G25.81 [facility] [place] [address] [facility] [address] [id number], [place] [id number] Aug, Dental examination Z01.20 [facility] [place] [address] [facility] [address] [id number], [place] [id number] Jul, Dental examination Z01.20 [facility] [address] [id number], [place] [phone] Jul, Lumbago with sciatica, left side M54.42 ; RLS (restless legs syndrome) G25.81 ; Moderate persistent asthma without complication J45.40 and Other specified hypothyroidism E03.8 [facility] [id number] [place] [address] [id number] Jul, Insomnia, unspecified type G47.00 and Lumbago with sciatica, left side M54.42 [facility] [place] [address] [place], [place] [address] [id number], [place] [id number] Jul, Dental examination Z01.20 [facility] [place] [address] [place] [address] AVE [id number], [place] [phone] May, Dental examination Z01.20 and Dental caries K02.9 [facility] [id number] [place] [address] [id number] May, [facility] [address] [id number] [place] [address] [id number] May, RLS (restless legs syndrome) G25.81 [facility] [address] [id number], [place] [phone] May, Lumbago with sciatica, left side M54.42 ; Insomnia, unspecified type G47.00 and RLS (restless legs syndrome) G25.81 [facility] [address] [id number], [place] [id number] Apr, Muscle spasms of both lower extremities M62.838 ; Constipation, unspecified constipation type K59.00 and Insomnia, unspecified type G47.00 [facility] [address] [id number], [place] [id number] Apr, [facility] [id number] [place] [address] [id number] Apr, Anxiety F41.9 and Lumbago with sciatica, left side M54.42 [facility]ITAL[facility] Enriquez [facility] [id number], [place] [id number] Mar, Encounter for dental examination and cleaning without abnormal findings Z01.20 [facility] [place] [id number] [place] [address] [id number] 20 Mar, 2016 Muscle cramp, nocturnal R25.2 [facility] [place] [id number] [place] [address] [id number] 14 Mar, 2016 RLS (restless legs syndrome) G25.81 ; Anxiety F41.9 ; Lumbago with sciatica, left side M54.42 ; Insomnia, unspecified type G47.00 and Muscle cramps R25.2 [facility] [address] [address]- [address] Mar, [facility] [id number] [place] [address] [id number] Feb, [facility] [id number] [place] [address] [id number] Feb, [facility] [id number] [place] [address] [id number] Jan, [facility] [id number] [place] [address] [id number] Jan, Moderate persistent asthma without complication J45.40 [facility] [place] [id number] [place] [address] [id number] Jan, [facility] [id number] [place] [address] [id number] Jan, [facility] [address] [id number] [place] [address] [id number] Jan, [facility] [id number] [place] [address] [id number] Jan, [facility] [id number] [place] [address] [id number] Dec, [facility] [address] [address]- [address] Dec, [facility] [place] [address] [id number], [place] [id number] Nov, [facility] [address] [id number], [place] [phone] Nov, [facility] [address] [id number], [place] [id number] Nov, Dental examination Z01.20 [facility] [place] [address] [id number], [place] [id number] Nov, Bipolar depression F31.30 [facility] [place] [address] [id number], [place] [id number] Nov, Lumbago with sciatica, left side M54.42 ; Allergic rhinitis, unspecified allergic rhinitis type J30.9 ; Bipolar depression F31.30 ; Moderate persistent asthma without complication J45.40 ; Encounter for immunization Z23 ; Abdominal spasms R10.9 and Benign essential hypertension I10 [facility] [place] [address] [id number], [place] [id number] Nov, [facility] [place] [address] [id number], [place] [id number] Oct, [facility] [place] [address] [id number], [place] [phone] Oct, [facility] [place] [address] [id number], [place] [id number] Sep, [facility] [place] [address] [id number], [place] [phone] Sep, [facility] [place] [address] [id number], [place] [id number] Sep, [facility] [place] [address] [id number] [place] [address] Sep [facility] [place] [id number], [place] [id number] Aug, [facility] [address] [id number], [place] [id number] Aug, Dental examination Z01.20 [facility] [place] [address] [id number], [place] [id number] Aug, [facility] [address] [id number], [place] [id number] Aug, [place] [id number] [place] [address] [id number] Jul, Allergic rhinitis, unspecified allergic rhinitis type J30.9 ; RLS ( restless legs syndrome) G25.81 ; Lumbago with sciatica, left side M54.42 and Other chronic pain G89.29 [facility] [id number] [place] [address] [id number] Jul, Allergic rhinitis, unspecified allergic rhinitis type J30.9 and RLS ( restless legs syndrome) G25.81 [place] [id number] [place] [address] [id number] Jul, [place] [id number] [place] [address] [id number] June, Hypo-osmolality and hyponatremia E87.1 and Benign essential hypertension I10 [facility] [id number] [place] [address] [id number] June, [place] [id number] [place] [address] [id number] June, Moderate persistent asthma without complication J45.40 ; RLS (restless legs syndrome) G25.81 ; Benign essential hypertension I10 ; Anxiety F41.9 and Constipation, unspecified constipation type K59.00 [facility] [address] [id number], [place] [id number] June, Encounter for dental examination and cleaning without abnormal findings Z01.20 [facility] [address] [id number], [place] [id number] June, [address]00565100[place], [place] [id number] June, [id number] [place] [address] [id number] June, [id number] [place] [address] [id number] May, [place] [id number] [place] [address] [id number] May, [facility] [place] [address] [id number], [place] [phone] May, [facility] [place] [address] [id number] [place] [address] [id number] May, [facility] [place] [address] [id number], [place] [phone] Apr, [facility] [place] [address] [id number] [place] [address] [id number] Apr, Anxiety F41.9 [facility] [place] [address] [id number], [place] [id number] Apr, [facility] [place] [address] [id number] [place] [address] [id number] Mar, [facility] [place] [address] [id number] [place] [address] [id number] Mar, [facility] [place] [address] [id number] [place] [address] [id number] Mar, [facility] [place] [id number] [place] [address] [id number] Mar, RLS (restless legs syndrome) G25.81 ; Anxiety F41.9 and Moderate persistent asthma without complication J45.40 [facility] [place] [address] [id number], [place] [id number] Mar, [facility] [place] [address] [id number], [place] [id number] Mar, [facility] [place] [address] [id number], [place] [id number] Feb, [facility] [place] [address] [id number], [place] [id number] Feb, [facility] [place] [address] [id number], [place] [id number] Feb, [facility] [address] [facility] [address] [id number], [place] [phone] Feb, Encounter for dental examination Z01.20 [facility] [place] [address] [id number], [place] [id number] Feb, [facility] [place] [address] [id number], [place] [id number] Jan, [facility] [id number], [place] [id number] Jan, Benign essential hypertension I10 [facility] [place] [id number] [place] [address] [id number] Jan, RLS (restless legs syndrome) G25.81 and Gastroesophageal reflux disease, esophagitis presence not specified K21.9 [facility] [place] [id number] [place] [address] [id number] Jan, [facility] [id number] [place] [address] [id number] Jan, [facility] [id number] [place] [address] [id number] Dec, Anxiety F41.9 ; Benign essential hypertension I10 and RLS (restless legs syndrome) G25.81 [facility] [place] [id number] [place] [address] [id number] Dec, RLS (restless legs syndrome) G25.81 ; Esophageal reflux 530.81 and Anxiety F41.9 [facility] [address] [id number], [place] [id number] Dec, [facility] [place] [id number] [place] [address] [id number] Nov, Anxiety F41.9 [facility] [address] [place] [address] [id number] Nov, Encounter for immunization Z23 ; Anxiety F41.9 ; Benign essential hypertension I10 ; RLS (restless legs syndrome) G25.81 and Rhinitis J31.0 [facility] [address] [facility] [id number], [place] [phone]- 1462 Nov, [facility] [place] [id number] [place] [address] [id number] Nov, [facility] [address] [id number], [place] [id number] Nov, [facility] [place] [id number] [place] [address] [id number] Nov, [facility] [place] [address] [facility] [id number] [place] [phone] Nov, [facility] [id number], [place] [phone] Oct, [facility] [place] [address] [facility] [id number] [place] [phone] Oct, [facility] [place] [address] [id number], [place] [id number] Oct, [facility] [place] [address] [id number], [place] [id number] Oct, Asthma, unspecified, unspecified status 493.90 ; Esophageal reflux 530.81 and Essential hypertension, benign 401.1 [facility] [place] [address] [id number], [place] [id number] Oct, [facility] [address] [id number], [place] [id number] Oct, [facility] [place] [address] [id number], [place] [id number] Oct, [facility] [address] [id number], [place] [id number] Sep, [facility] [place] [address] [id number], [place] [id number] Sep, Esophageal reflux 530.81 ; Insomnia 780.52 and Essential hypertension, benign 401.1 [facility] [place] [address] [id number], [place] [id number] Sep, [facility] [address] [id number], [place] [id number] Sep, [facility] [address] [id number], [place] [id number] Sep, [facility] [address] [id number], [place] [id number] Sep, [facility] [address] [id number], [place] [id number] Sep, [facility] [address] [id number], [place] [phone] Sep, [facility] [place] [address] [id number] [place] [id number] Sep, [facility] [address] [id number] [place] [id number] Sep, Essential hypertension, benign 401.1 ; Hyponatremia 276.1 and 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 [facility] [place] [address] [id number] [place] [phone] Sep, [facility] [address] [id number] [place] [id number] Aug, [facility] [address] [id number] [place] [id number] Aug, [facility] [address] [id number] [place] [id number] Jul, [facility] [address] [id number] [place] [address] [id number] Jul, [facility] [place] [address] [id number], [place] [id number] Jul, [facility] [address] [id number], [place] [id number] Jul, [facility] [address] [id number], [place] [id number] Jul, [facility] [address] [id number], [place] [id number] Jul, Insomnia 780.52 [facility] [address] [id number], [place] [id number] June, Muscle stiffness 728.9 and Insomnia 780.52 [facility] [address] [id number][place] [id number] June, [facility] [address] [id number][place] [id number] June, [facility] [address] [id number][place] [id number] June, [facility] [address] [id number][place] [id number] June, [facility] [address] [id number][place] [id number] May, [facility] [id number] [address] 14 May, 2014 [facility] [address] [id number], [place] [address] May, [facility] [address] [id number], [place] [id number] Apr, [facility] [id number], [place] [address] Apr, [facility] [address] [id number][place] [id number] Apr, [facility] [id number], [place] [address] Apr, [facility] [id number], [place] [address] Apr, [facility] [id number], [place] [address] Apr, [facility] [id number] [id number] Apr, [facility] [id number], [place] [address] Apr, [facility] [id number] [id number] Mar, [facility] [address] [id number], [place] [address] Mar, [facility] [address] [id number], [place] [id number] Mar, [facility] [address] [id number], [place] [address] Mar, [facility] [address] [id number], [place] [id number] Mar, [facility] [address] [id number], [place] [address] Mar, [facility] [address] [id number], [place] [address] Mar, [facility] [address] [id number] [place] [id number] Feb, [facility] [address] [facility] [id number], [place] [address] Feb, [facility] [address] [id number] [place] [id number] Feb, [facility] [address] [id number] [place] [id number] Feb, [facility] [address] [id number] [place] [id number] Feb, [facility] [address] [facility] [id number], [place] [address] Feb, [facility] [address] [facility] [id number], [place] [address] Feb, [facility] [id number], [place] [address] Feb, [facility] [address] [facility] [id number][place] [id number] Feb, [facility] [address] [facility] [id number], [place] [address] Feb, [facility] [address] [facility] [id number][place] [id number] Feb, [facility] [address] [facility] [id number], [place] [address] Feb, [facility] [address] [facility] [id number][place] [address] Jan, [facility] [address] [id number][place] [id number] Jan, [facility] [address] [facility] [id number], [place] [address] Jan, [facility] [address] [facility] [id number][place] [id number] Jan, [facility] [address] [facility] [id number], [place] [address] Jan, [facility] [address] [facility] [id number] [place] [id number] Jan, [facility] [address] [id number], [place] [address] Jan, [facility] [address] [id number], [place] [address] Jan, [facility] [address] [facility] [id number][place] [id number] Jan, [facility] [address] [facility] [id number], [place] [address] Jan, [facility] [id number], [place] [address] June, IMMUNIZATIONS No Known Immunizations SOCIAL HISTORY Never Assessed REASON FOR VISIT [facility] PLAN OF CARE VITAL SIGNS MEDICATIONS Unknown Medications RESULTS No Results PROCEDURES No Known procedures INSTRUCTIONS MEDICATIONS ADMINISTERED No Known Medications MEDICAL (GENERAL) HISTORY Type Description Date Medical History asthma Medical History hypertension Medical History bladder spasms Medical History thyroid [...] Surgical History Esophagus stretched 2017 Hospitalization History [facility] for hyponatremia, change in mental status, angioedema 09/2014
--- OUTSIDE RECORDS SUMMARY | 2017-08-27 16:30 | XMS REPORT ---
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 Name Role Phone AIMEE LING CP Unavailable [...] Active Problem Unspecified constipation 564.00 Active Assessment Benign essential hypertension I10 Active Problem Essential hypertension, benign 401.1 Active Problem Contact dermatitis and other eczema, due to unspecified cause 692.9 Active Problem Asthma, unspecified, unspecified status 493.90 Active Medications Medication Code System Code Instructions Start Date End Date Status Dosage Lisinopril-Hydrochlorothiazide [facility] [address]-22 20-12.5 MG Orally Once a day Oct 15, 2014 1 tablet Results No Known Results Summary Purpose [employer] Submission
--- OUTSIDE RECORDS SUMMARY | 2017-08-27 16:30 | XMS REPORT ---
Author Author AIMEE LING Organization [employer] Address Unknown Phone Unavailable Care Team Providers Care Bariatric Coordinator Name Role Phone AIMEE LING CP Unavailable [...] Instructions Start Date End Date Status Dosage [facility] [address]-29 30 MG Orally Once a day Oct 08, 2014 1 tablet Results No Known Results Summary Purpose [employer] Submission
--- OUTSIDE RECORDS SUMMARY | 2017-08-27 16:30 | XMS REPORT ---
Author Author AIMEE LING [facility] Address [address] [place] [address] Care Team Providers Care Hot Stamp Operator Name Role Phone AIMEE LING Unavailable PROBLEMS Type Condition ICD9-CM Code DBB31-AT Code Onset Dates Condition Status SNOMED Code Problem Allergic rhinitis, unspecified allergic rhinitis type J30.9 Active 62781562 Problem Bipolar depression F31.30 Active 93909867 Problem Lumbago with sciatica, left side M54.42 Active 106533127 Problem Other chronic pain G89.29 Active 67675507 Problem Overactive bladder N32.81 Active 351931112 Problem Insomnia, unspecified type G47.00 Active 494857049 Problem Abdominal spasms R10.9 Active 38440925 Problem Other specified hypothyroidism E03.8 Active 70871988 Problem Muscle spasms of both lower extremities M62.838 Active 231989668 Problem 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 75674521 Problem Hyponatremia 276.1 Active 36943904 Problem Insomnia 780.52 Active 024917671 Problem Anxiety F41.9 Active 49068146 Problem Gastroesophageal reflux disease, esophagitis presence not specified K21.9 Active 839100087 Problem RLS (restless legs syndrome) G25.81 Active 14939001 Problem Moderate persistent asthma without complication J45.40 Active 512605239 Problem Benign essential hypertension I10 Active 4981976 Problem Constipation, unspecified constipation type K59.00 Active 60323847 ALLERGIES No Information ENCOUNTERS Encounter Location Date Diagnosis [facility] [employer] [address] [id number] [place] [id number] Oct, [facility] [employer] [address] [id number] [place] [id number] Oct, [facility] [address] [id number] [place] [id number] Jul, [facility] [id number], [place] [id number] Jul, [facility] [place] [address]00565100[place] [id number] Jul, Back muscle spasm M62.830 and RLS (restless legs syndrome) G25.81 [facility] [place] [id number], [place] [phone] Jul, Back spasm M62.830 [facility] [place] [id number] [place] [address] [id number] Jul, Back spasm M62.830 and Anxiety F41.9 [facility] [id number] [place] [address] [id number] June, Insomnia, unspecified type G47.00 ; Overactive bladder N32.81 and Back spasm M62.830 [facility] [place] [id number], [place] [id number] June, Anxiety F41.9 and Lumbago with sciatica, left side M54.42 [facility] [address]00565100[place], [place] [address] May, Anxiety F41.9 and Lumbago with sciatica, left side M54.42 [address]00565100[place], [place] [id number] Apr, Dental examination Z01.20 [address]00565100[place], [place] [phone] Apr, [facility] [address]00565100[place], [place] [id number] Apr, RLS (restless legs syndrome) G25.81 ; Lumbago with sciatica, left side M54.42 and Anxiety F41.9 [address]00565100[place], [place] [id number] Mar, [facility] [id number] [place] [address] [id number] Mar, Insomnia, unspecified type G47.00 [facility] [address]00565100[place], [place] [id number] Mar, Insomnia, unspecified type G47.00 and RLS (restless legs syndrome) G25.81 [facility] [address] [facility] [address] [id number], [place] [id number] Mar, [facility] [address] [facility] [address] [id number], [place] [id number] Mar, Dental examination Z01.20 [facility] [id number] [place] [address] [phone] Mar, [facility] [id number] [place] [address] [id number] Mar, Lumbago with sciatica, left side M54.42 and Anxiety F41.9 [facility] [address]00565100[place], [place] [phone]- [address] Mar, [facility] [id number] [place] [address] [id number] Mar, Insomnia, unspecified type G47.00 [facility] [place] [address] [id number] [place] [address] [id number] Mar, [facility] [place] [address] [id number] [place] [address] [id number] Feb, Insomnia, unspecified type G47.00 [facility] [place] [address] [id number], [place] [id number] Feb, Lumbago with sciatica, left side M54.42 and Anxiety F41.9 [facility] [place] [id number] [place] [address] [id number] Feb, [facility] [place] [address] [id number] [place] [address] [id number] Feb, RLS (restless legs syndrome) G25.81 ; Lumbago with sciatica, left side M54.42 ; Overactive bladder N32.81 and Anxiety F41.9 [facility] [place] [address] [id number], [place] [id number] Jan, Overactive bladder N32.81 and Moderate persistent asthma without complication J45.40 [facility] [address]00565100[place], [place] [id number] Jan, Lumbago with sciatica, left side M54.42 and Insomnia, unspecified type G47.00 [place] [id number] [place] [address] [id number] Jan, RLS (restless legs syndrome) G25.81 [place] [id number] [place] [address] [id number] Dec, Overactive bladder N32.81 and Other chronic pain G89.29 [place] [id number] [place] [address] [id number] Dec, Lumbago with sciatica, left side M54.42 ; Insomnia, unspecified type G47.00 and RLS (restless legs syndrome) G25.81 [facility] [id number], [place] [id number] Nov, Overactive bladder N32.81 [place] [id number] [place] [address] [id number] Nov, [place] [id number] [place] [address] [phone] Nov, Lumbago with sciatica, left side M54.42 ; Insomnia, unspecified type G47.00 and RLS (restless legs syndrome) G25.81 [address]00565100[place], [place] [id number] Nov, Constipation, unspecified constipation type K59.00 ; Lumbago with sciatica , left side M54.42 ; Insomnia, unspecified type G47.00 ; Bloating R14.0 and Encounter for immunization Z23 [facility] [address] [id number], [place] [phone] Oct, Dental examination Z01.20 [id number] [place] [address] [id number] Oct, RLS (restless legs syndrome) G25.81 ; Lumbago with sciatica, left side M54.42 and Insomnia, unspecified type G47.00 [address] [place] [address] [id number] Sep, Moderate persistent asthma without complication J45.40 [facility] [address] [facility] [address] [id number], [place] [id number] Sep, Dental examination Z01.20 [facility] [place] [id number], [place] [id number] Sep, Lumbago with sciatica, left side M54.42 and Insomnia, unspecified type G47.00 [facility] [id number], [place] [id number] Sep, RLS (restless legs syndrome) G25.81 [facility] [address]00565100[place], [place] [phone]- [address] Aug, [facility] [id number], [place] [phone] Aug, [facility] [place] [address] [place], [place] [address] [id number] [place] [address] Aug Insomnia, unspecified type G47.00 [facility] [address] [facility] [address] [id number], [place] 053641294 Aug, Dental examination Z01.20 [facility] [place] [id number], [place] [id number] Aug, Vaginal discharge N89.8 [facility] [place] [id number], [place] [id number] Aug, RLS (restless legs syndrome) G25.81 [facility] [address] [facility] [address] [id number], [place] 970742468 Aug, Dental examination Z01.20 [facility] [address] [facility] [address] [id number], [place] [id number] Jul, Dental examination Z01.20 [facility] [place] [id number], [place] [id number] Jul, Lumbago with sciatica, left side M54.42 ; RLS (restless legs syndrome) G25.81 ; Moderate persistent asthma without complication J45.40 and Other specified hypothyroidism E03.8 [facility] [place] [address] [address] [id number], [place] [id number] Jul, Insomnia, unspecified type G47.00 and Lumbago with sciatica, left side M54.42 [facility] [address] [facility] [facility] [id number], [place] [id number] Jul, Dental examination Z01.20 [facility] [address] [facility] [id number], [place] [id number] May, Dental examination Z01.20 and Dental caries K02.9 [facility] [place] [address] [id number] [place] [address] [id number] May, [facility] [place] [id number] [place] [address] [id number] May, RLS (restless legs syndrome) G25.81 [facility] [place] [id number] [place] [address] [id number] May, Lumbago with sciatica, left side M54.42 ; Insomnia, unspecified type G47.00 and RLS (restless legs syndrome) G25.81 [facility] [place] [id number] [place] [address] [id number] Apr, Muscle spasms of both lower extremities M62.838 ; Constipation, unspecified constipation type K59.00 and Insomnia, unspecified type G47.00 [facility] [place] [id number] [place] [address] [id number] Apr, [place] [id number] [place] [address] [id number] Apr, Anxiety F41.9 and Lumbago with sciatica, left side M54.42 [facility] [address] [id number], [place] [id number] Mar, Encounter for dental examination and cleaning without abnormal findings Z01.20 [facility] [place] [id number], [place] [id number] 20 Mar, 2016 Muscle cramp, nocturnal R25.2 [facility] [place] [id number] [place] [address] [id number] 14 Mar, 2016 RLS (restless legs syndrome) G25.81 ; Anxiety F41.9 ; Lumbago with sciatica, left side M54.42 ; Insomnia, unspecified type G47.00 and Muscle cramps R25.2 [facility] [id number] [place] [address] [phone] Mar, [facility] [address] [id number] [place] [address] [id number] Feb, [facility] [address] [place] [address] [id number] Feb, [facility] [address] [id number] [place] [address] [id number] Jan, [facility] [address] [place] [address] [phone] Jan, Moderate persistent asthma without complication J45.40 [facility] [address] [id number] [place] [address] [id number] Jan, [facility] [address] [id number] [place] [address] [id number] Jan, [facility] [address] [id number] [place] [address] [id number] Jan, [facility] [address] [id number] [place] [address] [id number] Jan, [facility] [address] [id number] [place] [address] [id number] Dec, [facility] [id number] [place] [address] [phone] Dec, [facility] [address] [id number] [place] [address] [id number] Nov, [facility] [address] [id number] [place] [address] [id number] Nov, [place] [address] [facility] [id number] [place] [address] [id number] Nov, Dental examination Z01.20 [facility] [address] [id number] [place] [address] [id number] Nov, Bipolar depression F31.30 [facility] [address] [id number] [place] [address] [id number] Nov, Lumbago with sciatica, left side M54.42 ; Allergic rhinitis, unspecified allergic rhinitis type J30.9 ; Bipolar depression F31.30 ; Moderate persistent asthma without complication J45.40 ; Encounter for immunization Z23 ; Abdominal spasms R10.9 and Benign essential hypertension I10 [facility] [place] [address] [id number], [place] [id number] Nov, [facility] [place] [address] [id number], [place] [id number] Oct, [facility] [place] [address] [id number], [place] [id number] Oct, [facility] [place] [address] [id number] [place] [address] [id number] Sep, [facility] [place] [address] [id number], [place] [id number] Sep, [facility] [address] [id number], [place] [phone] Sep, [place] [address] [id number] [place] [address] Sep [facility] [address] [id number], [place] [id number] Aug, [facility] [address] [id number], [place] [id number] Aug, Dental examination Z01.20 [facility] [address] [id number], [place] [id number] Aug, [place] [address] [facility] [address] [id number], [place] [id number] Aug, [facility] [address] [id number], [place] [id number] Jul, Allergic rhinitis, unspecified allergic rhinitis type J30.9 ; RLS ( restless legs syndrome) G25.81 ; Lumbago with sciatica, left side M54.42 and Other chronic pain G89.29 [facility] [address] [id number], [place] [id number] Jul, Allergic rhinitis, unspecified allergic rhinitis type J30.9 and RLS ( restless legs syndrome) G25.81 [facility] [place] [address] [id number] [place] [address] [id number] Jul, [facility] [place] [address] [id number] [place] [address] [id number] June, Hypo-osmolality and hyponatremia E87.1 and Benign essential hypertension I10 [facility] [place] [address] [id number] [place] [address] [id number] June, [facility] [place] [address] [id number] [place] [address] [id number] June, Moderate persistent asthma without complication J45.40 ; RLS (restless legs syndrome) G25.81 ; Benign essential hypertension I10 ; Anxiety F41.9 and Constipation, unspecified constipation type K59.00 [facility] [id number] [place] [address] [id number] June, Encounter for dental examination and cleaning without abnormal findings Z01.20 [facility] [address] [id number] [place] [address] [id number] June, [facility] [place] [address] [id number] [place] [address] [id number] June, [facility] [place] [address] [id number] [place] [address] [id number] June, [facility] [place] [address] [id number] [place] [address] [id number] May, [facility] [place] [address] [id number] [place] [address] [id number] May, [facility] [place] [address] [id number] [place] [address] [id number] May, [facility] [place] [address] [id number] [place] [address] [id number] May, [facility] [place] [address] [id number] [place] [address] [id number] Apr, [facility] [place] [address] [id number] [place] [address] [id number] Apr, Anxiety F41.9 [facility] [place] [address] [id number] [place] [address] [id number] Apr, [facility] [place] [address] [id number], [place] [id number] Mar, [facility] [address] [id number] [place] [address] [id number] Mar, [facility] [place] [address] [id number] [place] [address] [id number] Mar, [facility] [address] [id number] [place] [address] [id number] Mar, RLS (restless legs syndrome) G25.81 ; Anxiety F41.9 and Moderate persistent asthma without complication J45.40 [facility] [address] [id number] [place] [address] [id number] Mar, [facility] [address] [id number] [place] [address] [id number] Mar, [facility] [id number] [place] [address] [id number] Feb, [facility] [address] [id number] [place] [address] [id number] Feb, [facility] [id number] [place] [address] [id number] Feb, [address]00565100[place], [place] [id number] Feb, Encounter for dental examination Z01.20 [facility] [address] [id number] [place] [address] [id number] Feb, [facility] [id number] [place] [address] [id number] Jan, [facility] [id number] [place] [address] [id number] Jan, Benign essential hypertension I10 [facility] [address] [id number] [place] [address] [id number] Jan, RLS (restless legs syndrome) G25.81 and Gastroesophageal reflux disease, esophagitis presence not specified K21.9 [facility] [address] [id number] [place] [address] [id number] Jan, [facility] [id number] [place] [address] [id number] Jan, [facility] [place] [address] [facility] [id number], [place] [id number] Dec, Anxiety F41.9 ; Benign essential hypertension I10 and RLS (restless legs syndrome) G25.81 [facility] [place] [id number], [place] [id number] Dec, RLS (restless legs syndrome) G25.81 ; Esophageal reflux 530.81 and Anxiety F41.[address] [facility] [address] [id number], [place] [id number] Dec, [facility] [place] [address] [id number] [place] [address] [id number] Nov, Anxiety F41.9 [facility] [place] [id number], [place] [id number] Nov, Encounter for immunization Z23 ; Anxiety F41.9 ; Benign essential hypertension I10 ; RLS (restless legs syndrome) G25.81 and Rhinitis J31.0 [facility] [address] [id number], [place] [address] Nov, [facility] [place] [id number], [place] [id number] Nov, [facility] [place] [address] [facility] [address] [id number], [place] [id number] Nov, [facility] [place] [address] [id number], [place] [id number] Nov, [place] [id number] [id number] Nov, [facility] [place] [address] [facility] [address] [id number], [place] [id number] Oct, [place] [id number] [place] [address] [phone] Oct, [facility] [place] [address] [id number], [place] [id number] Oct, [facility] [place] [address] [id number], [place] [id number] Oct, Asthma, unspecified, unspecified status 493.90 ; Esophageal reflux 530.81 and Essential hypertension, benign 401.1 [facility] [address] [id number] [place] [address] [id number] Oct, [facility] [place] [address] [id number] [place] [address] [id number] Oct, [facility] [place] [address] [id number] [place] [address] [id number] Oct, [facility] [place] [address] [place] [address] [id number] Sep, [facility] [place] [address] [id number] [place] [address] [id number] Sep, Esophageal reflux 530.81 ; Insomnia 780.52 and Essential hypertension, benign 401.1 [facility] [address] [id number] [place] [address] [id number] Sep, [facility] [address] [id number] [place] [address] [id number] Sep, [facility] [address] [id number] [place] [address] [id number] Sep, [facility] [address] [id number] [place] [address] [id number] Sep, [facility] [address] [id number] [place] [address] [id number] Sep, [facility] [address] [id number] [place] [address] [id number] Sep, [facility] [address] [id number] [place] [address] [id number] Sep, [facility] [address] [id number] [place] [address] [id number] Sep, Essential hypertension, benign 401.1 ; Hyponatremia 276.1 and 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 [facility] [address] [id number] [place] [address] [id number] Sep, [facility] [address] [id number] [place] [address] [id number] Aug, [facility] [address] [id number] [place] [address] [id number] Aug, [facility] [address] [id number] [id number] Jul, [facility] [address] [id number] [place] [id number] Jul, [facility] [address] [id number] [place] [id number] Jul, [facility] [address] [id number] [id number] Jul, [facility] [address] [id number] [place] [id number] Jul, [facility] [address] [id number] [place] [id number] Jul, Insomnia 780.52 [facility] [address] [id number] [place] [address] [id number] June, Muscle stiffness 728.9 and Insomnia 780.52 [facility] [address] [id number] [id number] June, [facility] [address] [id number], [place] [id number] June, [facility] [address] [id number] [id number] June, [facility] [id number], [place] [id number] June, [facility] [address] [id number] [id number] May, [facility] [id number], [place] [address] May, [facility] [place] [facility] [address], [place] [address] May, [facility] [id number][place] [id number] Apr, [facility] [id number] [place] [address] Apr, [facility] [id number], [place] [id number] Apr, [facility] [address] [id number], [place] [address] Apr, [facility] [place] [facility] [address] [facility] [id number], [place] [address] Apr, [facility] [place] [facility] [address], [place] [address] Apr, [facility] [address] [facility] [id number], [place] [id number] Apr, [facility] [place] [facility] [address], [place] [address] Apr, [facility] [address] [facility] [id number], [place] [id number] Mar, [facility] [place] [facility] [address], [place] [address] Mar, [facility] [id number], [place] [id number] Mar, [facility] [place] [facility] [address], [place] [address] Mar, [facility] [id number], [place] [id number] Mar, [facility] [place] [facility] [address], [place] [address] Mar, [facility] [place] [facility] [address] [id number], [place] [address] Mar, [facility] [address] [facility] [id number], [place] [id number] Feb, [facility] [place] [facility] [address] [facility] [id number], [place] [address] Feb, [facility] [address] [id number], [place] [id number] Feb, [facility] [address] [id number], [place] [id number] Feb, [facility] [address] [id number], [place] [id number] Feb, [facility] [place] [facility] [address] [facility] [id number], [place] [address] Feb, [facility] [place] [facility] [address] [facility] [id number] [place] [address] Feb, [facility] [place] [facility] [address] [facility] [id number], [place] [address] Feb, [facility] [address] [facility] [id number], [place] [id number] Feb, [facility] [place] [facility] [address] [facility] [id number] [place] [address] Feb, [facility] [address] [facility] [id number], [place] [id number] Feb, [facility] [place] [facility] [address] [facility] [id number], [place] [address] Feb, [facility] [place] [facility] [address] [facility] [id number], [place] [address] Jan, [facility] [address] [facility] [id number], [place] [id number] Jan, [facility] [address] [facility] [id number], [place] [address] Jan, [facility] [address] [facility] [id number], [place] [id number] Jan, [facility] [place] [facility] [address] [facility] [id number], [place] [address] Jan, [facility] [address] [facility] [id number], [place] [id number] Jan, [facility] [place] [facility] [address] [facility] [id number], [place] [address] Jan, [facility] [place] [facility] [address] [facility] [id number], [place] [address] Jan, [facility] [address] [facility] [id number], [place] [id number] Jan, [facility] [place] [facility] [address] [facility] [id number], [place] [address] Jan, [facility] [address] [facility] [id number] [place] [address] June, IMMUNIZATIONS No Known Immunizations SOCIAL HISTORY Never Assessed REASON FOR VISIT RX-Tramadol & Klonopin refills PLAN OF CARE VITAL SIGNS MEDICATIONS Medication Instructions Dosage Frequency Start Date End Date Duration Status Tramadol HCl 50 mg Orally 2 times a day must last 28 days 1 tablet Active Clonazepam 0.5 MG Orally Once a day at HS, PRN for RLS. Must last 28 days 1.5 tablet Jul, Active RESULTS No Results [...] Surgical History Esophagus stretched 2017 Hospitalization History [facility] for hyponatremia, change in mental status, angioedema 09/2014
--- OUTSIDE RECORDS SUMMARY | 2017-08-27 16:31 | XMS REPORT ---
Author Author AIMEE LING Organization [employer] Address Unknown Phone Unavailable Care Team Providers Care Patient Services Manager Name Role Phone AIMEE LING CP Unavailable [...] associated with 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 Active Assessment Anxiety F41.9 Active Problem Contact dermatitis and other eczema, due to unspecified cause 692.9 Active Problem Restless legs syndrome [RLS] 333.94 Active Assessment Esophageal reflux 530.81 Active Problem Unspecified constipation 564.00 Active Assessment RLS (restless legs syndrome) G25.81 Active Problem Essential hypertension, benign 401.1 Active Medications Medication Code System Code Instructions Start Date End Date Status Dosage Omeprazole [facility] [address]-00 40 MG Orally Once a day Feb 25, 2014 1 Capsule BusPIRone HCl [facility] [address]-85 15 MG Orally Three times a day June 09, 2014 1 tablet Gabapentin [facility] [address]-45 300 MG Orally 1 tab in am and midday, 2 tabs at hs Mar 04, 2014 1-2 Tablet tramadol NDC 0 50 mg orally 3 times a day prn Must last 1 mo April 29, 2014 1 tablet Results No Known Results Summary Purpose [employer] Submission
--- OUTSIDE RECORDS SUMMARY | 2017-08-27 16:31 | XMS REPORT ---
Author Author AIMEE LING Organization [employer] Address Unknown Phone Unavailable Care Team Providers Care Nipple Threader Name Role Phone AIMEE LING CP Unavailable [...] Start Date End Date Status Dosage Lisinopril-Hydrochlorothiazide [facility] [address]-68 20-12.5 MG Orally Once a day Oct 15, 2014 1 tablet Results No Known Results Summary Purpose [employer] Submission
--- OUTSIDE RECORDS SUMMARY | 2017-08-27 16:31 | XMS REPORT ---
Author Author AIMEE LING [facility] Address [address] [place] [address] Care Team Providers Care Curam Developer Name Role Phone AIMEE LING Unavailable PROBLEMS Type Condition ICD9-CM Code [id number] Code Onset Dates Condition Status SNOMED Code Problem Allergic rhinitis, unspecified allergic rhinitis type J30.9 Active 31271034 Problem Bipolar depression F31.30 Active 40411391 Problem Lumbago with sciatica, left side M54.42 Active 503032525 Problem Other chronic pain G89.29 Active 28766013 Problem Overactive bladder N32.81 Active 609443141 Problem Insomnia, unspecified type G47.00 Active 779983060 Problem Abdominal spasms R10.9 Active 54448715 Problem Other specified hypothyroidism E03.8 Active 89585332 Problem Muscle spasms of both lower extremities M62.838 Active 674257421 Problem 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 24134814 Problem Hyponatremia 276.1 Active 51121988 Problem Insomnia 780.52 Active 799849362 Problem Anxiety F41.9 Active 87389074 Problem Gastroesophageal reflux disease, esophagitis presence not specified K21.9 Active 384308607 Problem RLS (restless legs syndrome) G25.81 Active 07191318 Problem Moderate persistent asthma without complication J45.40 Active 906737677 Problem Benign essential hypertension I10 Active 1529250 Problem Constipation, unspecified constipation type K59.00 Active 04701298 ALLERGIES No Information ENCOUNTERS Encounter Location Date Diagnosis [facility] [address] [id number] [place] [id number] Oct, [facility] [address] [id number] [place] [id number] Oct, [facility] [id number] [place] [id number] Jul, [facility] [place] [id number], [place] [id number] Jul, [facility] [place] [address] [id number] Jul, Back muscle spasm M62.830 and RLS (restless legs syndrome) G25.81 [facility] [place] [id number], [place] [id number] Jul, Back spasm M62.830 [facility] [place] [id number] [place] [address] [id number] Jul, Back spasm M62.830 and Anxiety F41.9 [facility] [address] [place] [address] [id number] June, Insomnia, unspecified type G47.00 ; Overactive bladder N32.81 and Back spasm M62.830 [facility] [place] [id number], [place] [id number] June, Anxiety F41.9 and Lumbago with sciatica, left side M54.42 [facility] [address]005[address]100[place] [id number] May, Anxiety F41.9 and Lumbago with sciatica, left side M54.42 [address]00565100[place], [place] [phone] Apr, Dental examination Z01.20 [address]00565100[place], [place] [address] Apr, [facility] [address]00565100[place] [id number] Apr, RLS (restless legs syndrome) G25.81 ; Lumbago with sciatica, left side M54.42 and Anxiety F41.[address]00565100[place], [place] [id number] Mar, [facility] [address] [place] [address] [id number] Mar, Insomnia, unspecified type G47.00 [facility] [address]100[place] [id number] Mar, Insomnia, unspecified type G47.00 and RLS (restless legs syndrome) G25.81 [facility] [address] [id number], [place] [id number] Mar, [facility] [address] [id number], [place] [id number] Mar, Dental examination Z01.20 [facility] [id number] [place] [address] [phone] [phone] Mar, [facility] [id number] [place] [address] [id number] Mar, Lumbago with sciatica, left side M54.42 and Anxiety F41.9 [facility] [address]00565100[place], [place] [phone]- [address] Mar, [facility] [id number] [place] [address] [id number] Mar, Insomnia, unspecified type G47.00 [facility] [place] [id number] [place] [address] [id number] Mar, [facility] [place] [id number] [place] [address] [id number] Feb, Insomnia, unspecified type G47.00 [facility] [place] [address] [id number], [place] [id number] Feb, Lumbago with sciatica, left side M54.42 and Anxiety F41.9 [facility] [place] [id number] [place] [address] [id number] Feb, [facility] [place] [id number] [place] [address] [id number] Feb, RLS (restless legs syndrome) G25.81 ; Lumbago with sciatica, left side M54.42 ; Overactive bladder N32.81 and Anxiety F41.9 [facility] [place] [address] [id number], [place] [id number] Jan, Overactive bladder N32.81 and Moderate persistent asthma without complication J45.40 [facility] [address]00565100[place] [id number] Jan, Lumbago with sciatica, left side M54.42 and Insomnia, unspecified type G47.00 [place] [id number] [place] [address] [id number] Jan, RLS (restless legs syndrome) G25.81 [place] [id number] [place] [address] [id number] Dec, Overactive bladder N32.81 and Other chronic pain G89.29 [place] [address] [id number] [place] [address] [id number] Dec, Lumbago with sciatica, left side M54.42 ; Insomnia, unspecified type G47.00 and RLS (restless legs syndrome) G25.81 [facility] [id number], [place] [id number] Nov, Overactive bladder N32.81 [place] [id number] [place] [address] [id number] Nov, [place] [id number] [place] [address] [id number] Nov, Lumbago with sciatica, left side M54.42 ; Insomnia, unspecified type G47.00 and RLS (restless legs syndrome) G25.81 [address]00565100[place], [place] [id number] Nov, Constipation, unspecified constipation type K59.00 ; Lumbago with sciatica , left side M54.42 ; Insomnia, unspecified type G47.00 ; Bloating R14.0 and Encounter for immunization Z23 [facility] [address] [id number], [place] [id number] Oct, Dental examination Z01.20 [address] [place] [address] [id number] Oct, RLS (restless legs syndrome) G25.81 ; Lumbago with sciatica, left side M54.42 and Insomnia, unspecified type G47.00 [address] [place] [address] [id number] Sep, Moderate persistent asthma without complication J45.40 [facility] [address] [id number], [place] [id number] Sep, Dental examination Z01.20 [facility] [place] [id number], [place] [id number] Sep, Lumbago with sciatica, left side M54.42 and Insomnia, unspecified type G47.00 [facility] [place] [id number], [place] [id number] Sep, RLS (restless legs syndrome) G25.81 [facility] [address]00565100[place], [place] [phone]- [address] Aug, [facility] [place] [id number], [place] [id number] Aug, [facility] [place] [address] [place], [place] [address] [id number] [place] [address] Aug Insomnia, unspecified type G47.00 [facility] [address] [id number], [place] [id number] Aug, Dental examination Z01.20 [facility] [place] [id number], [place] [id number] Aug, Vaginal discharge N89.8 [facility] [place] [id number], [place] [id number] Aug, RLS (restless legs syndrome) G25.81 [facility] [address] [id number], [place] [id number] Aug, Dental examination Z01.20 [facility] [address] [id number], [place] [id number] Jul, Dental examination Z01.20 [facility] [place] [id number], [place] [id number] Jul, Lumbago with sciatica, left side M54.42 ; RLS (restless legs syndrome) G25.81 ; Moderate persistent asthma without complication J45.40 and Other specified hypothyroidism E03.8 [facility] [place] [address] [place] [address] [id number] [id number] Jul, Insomnia, unspecified type G47.00 and Lumbago with sciatica, left side M54.42 [facility] [address] [facility] [id number], [place] [id number] Jul, Dental examination Z01.20 [facility] [address] [facility] [id number], [place] [id number] May, Dental examination Z01.20 and Dental caries K02.9 [facility] [place] [address] [place] [id number] [place] [address] [id number] May, [facility] [place] [address] [place] [id number] [place] [address] [id number] May, RLS (restless legs syndrome) G25.81 [facility] [place] [address] [place] [id number] [place] [address] [id number] May, Lumbago with sciatica, left side M54.42 ; Insomnia, unspecified type G47.00 and RLS (restless legs syndrome) G25.81 [facility] [place] [id number] [place] [address] [id number] Apr, Muscle spasms of both lower extremities M62.838 ; Constipation, unspecified constipation type K59.00 and Insomnia, unspecified type G47.00 [facility] [place] [id number] [place] [address] [id number] Apr, [place] [id number] [place] [address] [id number] Apr, Anxiety F41.9 and Lumbago with sciatica, left side M54.42 [facility] [address] [id number], [place] [id number] Mar, Encounter for dental examination and cleaning without abnormal findings Z01.20 [facility] [place] [id number], [place] [id number] 20 Mar, 2016 Muscle cramp, nocturnal R25.2 [facility] [place] [id number] [place] [address] [id number] 14 Mar, 2016 RLS (restless legs syndrome) G25.81 ; Anxiety F41.9 ; Lumbago with sciatica, left side M54.42 ; Insomnia, unspecified type G47.00 and Muscle cramps R25.2 [facility] [id number] [place] [address] [phone] Mar, [facility] [id number] [place] [address] [id number] Feb, [facility] [address] [place] [address] [id number] Feb, [facility] [id number] [place] [address] [id number] Jan, [facility] [address] [place] [address] [id number] Jan, Moderate persistent asthma without complication J45.40 [facility] [id number] [place] [address] [id number] Jan, [facility] [address] [id number] [place] [address] [id number] Jan, [facility] [address] [id number] [place] [address] [id number] Jan, [facility] [address] [id number] [place] [address] [id number] Jan, [facility] [address] [id number] [place] [address] [id number] Dec, [facility] [address] [place] [address] [phone] Dec, [facility] [address] [id number] [place] [address] [id number] Nov, [facility] [address] [id number] [place] [address] [id number] Nov, [place] [address] [id number] [place] [address] [id number] Nov, Dental examination Z01.20 [facility] [address] [id number] [place] [address] [id number] Nov, Bipolar depression F31.30 [facility] [address] [id number] [place] [address] [id number] Nov, Lumbago with sciatica, left side M54.42 ; Allergic rhinitis, unspecified allergic rhinitis type J30.9 ; Bipolar depression F31.30 ; Moderate persistent asthma without complication J45.40 ; Encounter for immunization Z23 ; Abdominal spasms R10.9 and Benign essential hypertension I10 [facility] [place] [address] [id number], [place] [id number] Nov, [facility] [place] [address] [id number], [place] [id number] Oct, [facility] [place] [address] [id number], [place] [id number] Oct, [facility] [place] [address] [id number] [place] [address] [id number] Sep, [facility] [place] [address] [id number], [place] [id number] Sep, [facility] [address] [id number], [place] [id number] Sep, [place] [address] [id number] [place] [address] Sep [facility] [address] [id number], [place] [id number] Aug, [facility] [address] [id number], [place] [id number] Aug, Dental examination Z01.20 [facility] [address] [id number], [place] [id number] Aug, [place] [address] [id number], [place] [id number] Aug, [facility] [address] [id number], [place] [id number] Jul, Allergic rhinitis, unspecified allergic rhinitis type J30.9 ; RLS ( restless legs syndrome) G25.81 ; Lumbago with sciatica, left side M54.42 and Other chronic pain G89.29 [facility] [address] [id number], [place] [id number] Jul, Allergic rhinitis, unspecified allergic rhinitis type J30.9 and RLS ( restless legs syndrome) G25.81 [facility] [place] [address] [id number] [place] [address] [id number] Jul, [facility] [place] [address] [id number] [place] [address] [id number] June, Hypo-osmolality and hyponatremia E87.1 and Benign essential hypertension I10 [facility] [place] [address] [id number] [place] [address] [id number] June, [facility] [place] [address] [id number] [place] [address] [id number] June, Moderate persistent asthma without complication J45.40 ; RLS (restless legs syndrome) G25.81 ; Benign essential hypertension I10 ; Anxiety F41.9 and Constipation, unspecified constipation type K59.00 [facility] [id number] [place] [address] [id number] June, Encounter for dental examination and cleaning without abnormal findings Z01.20 [facility] [address] [id number] [place] [address] [id number] June, [facility] [place] [address] [id number] [place] [address] [id number] June, [facility] [place] [address] [id number] [place] [address] [id number] June, [facility] [place] [address] [id number] [place] [address] [id number] May, [facility] [place] [address] [id number] [place] [address] [id number] May, [facility] [place] [address] [id number] [place] [address] [id number] May, [facility] [place] [address] [id number] [place] [address] [id number] May, [facility] [place] [address] [id number] [place] [address] [id number] Apr, [facility] [place] [address] [id number] [place] [address] [id number] Apr, Anxiety F41.9 [facility] [place] [address] [id number] [place] [address] [id number] Apr, [facility] [address] [id number], [place] [id number] Mar, [facility] [address] [id number] [place] [address] [id number] Mar, [facility] [place] [address] [id number] [place] [address] [id number] Mar, [facility] [address] [id number] [place] [address] [id number] Mar, RLS (restless legs syndrome) G25.81 ; Anxiety F41.9 and Moderate persistent asthma without complication J45.40 [facility] [address] [id number] [place] [address] [id number] Mar, [facility] [address] [id number] [place] [address] [id number] Mar, [facility] [id number] [place] [address] [id number] Feb, [facility] [address] [id number] [place] [address] [id number] Feb, [facility] [id number] [place] [address] [id number] Feb, [address]00565100[place], [place] [id number] Feb, Encounter for dental examination Z01.20 [facility] [address] [id number] [place] [address] [id number] Feb, [facility] [address] [place] [id number] [place] [address] [id number] Jan, [facility] [id number] [place] [address] [id number] Jan, Benign essential hypertension I10 [facility] [address] [id number] [place] [address] [id number] Jan, RLS (restless legs syndrome) G25.81 and Gastroesophageal reflux disease, esophagitis presence not specified K21.9 [facility] [address] [id number] [place] [address] [id number] Jan, [facility] [address] [place] [id number] [place] [address] [id number] Jan, [facility] [place] [address] [facility] [id number], [place] [id number] Dec, Anxiety F41.9 ; Benign essential hypertension I10 and RLS (restless legs syndrome) G25.81 [facility] [place] [id number], [place] [id number] Dec, RLS (restless legs syndrome) G25.81 ; Esophageal reflux 530.81 and Anxiety F41.[address] [facility] [address] [id number], [place] [id number] Dec, [facility] [place] [address] [place] [id number] [place] [address] [id number] Nov, Anxiety F41.9 [facility] [place] [id number], [place] [id number] Nov, Anxiety F41.9 ; Encounter for immunization Z23 ; Benign essential hypertension I10 ; RLS (restless legs syndrome) G25.81 and Rhinitis J31.0 [facility] [address] [id number], [place] [address]- [address] Nov, [facility] [place] [id number], [place] [id number] Nov, [facility] [place] [address] [id number], [place] [id number] Nov, [facility] [place] [address] [place] [address] [id number], [place] [id number] Nov, [place] [id number], [place] [id number] Nov, [facility] [place] [address] [id number], [place] [id number] Oct, [place] [id number] [place] [address] [id number] Oct, [facility] [place] [address] [place] [address] [id number], [place] [id number] Oct, [facility] [place] [address] [place] [id number] [place] [address] [id number] Oct, Esophageal reflux 530.81 ; Asthma, unspecified, unspecified status 493.90 and Essential hypertension, benign 401.1 [facility] [place] [id number] [place] [address] [id number] Oct, [facility] [place] [address] [id number] [place] [address] [id number] Oct, [facility] [place] [address] [id number] [place] [address] [id number] Oct, [facility] [place] [address] [id number] [place] [address] [id number] Sep, [facility] [place] [address] [id number] [place] [id number] Sep, Esophageal reflux 530.81 ; Insomnia 780.52 and Essential hypertension, benign 401.1 [facility] [address] [id number] [place] [address] [id number] Sep, [facility] [address] [id number] [place] [address] [id number] Sep, [facility] [address] [id number] [place] [address] [id number] Sep, [facility] [address] [id number] [place] [address] [id number] Sep, [facility] [address] [id number] [place] [address] [id number] Sep, [facility] [address] [id number] [place] [address] [id number] Sep, [facility] [address] [id number] [place] [address] [id number] Sep, [facility] [address] [id number] [place] [address] [id number] Sep, Essential hypertension, benign 401.1 ; Hyponatremia 276.1 and 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 [facility] [address] [id number] [place] [address] [id number] Sep, [facility] [id number] [place] [address] [id number] Aug, [facility] [address] [id number] [place] [address] [id number] Aug, [facility] [address] [id number][place] [id number] Jul, [facility] [address] [id number] [place] [id number] Jul, [facility] [address] [id number] [place] [id number] Jul, [facility] [address] [id number][place] [id number] Jul, [facility] [address] [id number] [place] [id number] Jul, [facility] [address] [id number] [place] [id number] Jul, Insomnia 780.52 [facility] [address] [id number] [place] [address] [id number] June, Muscle stiffness 728.9 and Insomnia 780.52 [facility] [address] [id number][place] [id number] June, [facility] [address] [id number][place] [id number] June, [facility] [address] [id number][place] [id number] June, [facility] [id number][place] [id number] June, [facility] [address] [id number][place] [id number] May, [facility] [id number] [address] May, [facility] [id number], [place] [address] May, [facility] [id number][place] [id number] Apr, [facility] [id number] [place] [id number] Apr, [facility] [id number][place] [id number] Apr, [facility] [address] [id number], [place] [address] Apr, [facility] [address] [facility] [id number], [place] [address] Apr, [facility] [id number], [place] [address] Apr, [facility] [address] [facility] [id number][place] [id number] Apr, [facility] [place] [facility] [id number], [place] [address] Apr, [facility] [address] [facility] [id number][place] [id number] Mar, [facility] [place] [facility] [id number], [place] [address] Mar, [facility] [id number][place] [id number] Mar, [facility] [place] [facility] [id number], [place] [address] Mar, [facility] [id number][place] [id number] Mar, [facility] [place] [facility] [id number], [place] [address] Mar, [facility] [place] [facility] [id number], [place] [address] Mar, [facility] [address] [facility] [id number][place] [id number] Feb, [facility] [place] [facility] [address] [facility] [id number], [place] [address] Feb, [facility] [address] [id number][place] [id number] Feb, [facility] [address] [id number][place] [id number] Feb, [facility] [address] [id number][place] [id number] Feb, [facility] [place] [facility] [address] [facility] [id number], [place] [address] Feb, [facility] [place] [facility] [address] [facility] [id number] [place] [address] Feb, [facility] [place] [facility] [address] [facility] [id number], [place] [address] Feb, [facility] [address] [facility] [id number][place] [id number] Feb, [facility] [place] [facility] [address] [facility] [id number] [place] [address] Feb, [facility] [address] [facility] [id number][place] [id number] Feb, [facility] [place] [facility] [address] [facility] [id number], [place] [address] Feb, [facility] [place] [facility] [address] [facility] [id number], [place] [address] Jan, [facility] [address] [facility] [id number][place] [id number] Jan, [facility] [address] [facility] [id number], [place] [address] Jan, [facility] [address] [facility] [id number][place] [id number] Jan, [facility] [place] [facility] [address] [facility] [id number], [place] [address] Jan, [facility] [address] [facility] [id number], [place] [id number] Jan, [facility] [place] [facility] [address] [facility] [id number], [place] [address] Jan, [facility] [place] [facility] [address] [facility] [id number], [place] [address] Jan, [facility] [address] [facility] [id number][place] [id number] Jan, [facility] [place] [facility] [address] [facility] [id number], [place] [address] Jan, [facility] [address] [facility] [id number] [place] [id number] June, IMMUNIZATIONS No Known Immunizations SOCIAL HISTORY Never Assessed REASON FOR VISIT PA for Zolpidem ER PLAN OF CARE VITAL SIGNS MEDICATIONS Unknown [...] Surgical History Esophagus stretched 2017 Hospitalization History [facility] for hyponatremia, change in mental status, angioedema 09/2014
--- OUTSIDE RECORDS SUMMARY | 2017-08-27 16:31 | XMS REPORT ---
Author Author AIMEE LING Organization [employer] Address Unknown Phone Unavailable Care Team Providers Care Clerical Adviser Name Role Phone AIMEE LING CP Unavailable [...] Start Date End Date Status Dosage Clonazepam [facility] [id number] 0.5 MG Orally Once a day at HS, PRN for RLS. Must last one month August 04, 2014 1 tablet Results No Known Results Summary Purpose [employer] Submission
--- OUTSIDE RECORDS SUMMARY | 2017-08-27 16:32 | XMS REPORT ---
Author Author AIMEE LING Organization [employer] Address Unknown Phone Unavailable Care Team Providers Care Load Out Worker Name Role Phone AIMEE LING CP [...] Instructions Start Date End Date Status Dosage ProAir [facility] [id number] 108 (90 Base) MCG/ACT Inhalation 4 times a day for wheezing or SOB Oct 21, 2014 2 puffs as needed Results No Known Results Summary Purpose [employer] Submission
--- OUTSIDE RECORDS SUMMARY | 2017-08-27 16:32 | XMS REPORT ---
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 Name Role Phone AIMEE LING Unavailable PROBLEMS Type Condition ICD9-CM Code SNN30-OO Code Onset Dates Condition Status SNOMED Code Problem Allergic rhinitis, unspecified allergic rhinitis type J30.9 Active 46582818 Problem Bipolar depression F31.30 Active 41509247 Problem Lumbago with sciatica, left side M54.42 Active 686933173 Problem Other chronic pain G89.29 Active 17008863 Problem Overactive bladder N32.81 Active 553055965 Problem Insomnia, unspecified type G47.00 Active 044011124 Problem Abdominal spasms R10.9 Active 52918148 Problem Other specified hypothyroidism E03.8 Active 95451965 Problem Muscle spasms of both lower extremities M62.838 Active 237351705 Problem 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 48237496 Problem Hyponatremia 276.1 Active 52387249 Problem Insomnia 780.52 Active 289436708 Problem Anxiety F41.9 Active 61050493 Problem Gastroesophageal reflux disease, esophagitis presence not specified K21.9 Active 898832116 Problem RLS (restless legs syndrome) G25.81 Active 98095045 Problem Moderate persistent asthma without complication J45.40 Active 790082217 Problem Benign essential hypertension I10 Active 8615503 Problem Constipation, unspecified constipation type K59.00 Active 56057819 ALLERGIES No Information ENCOUNTERS Encounter Location Date Diagnosis [facility] [address] [id number] [place] [id number] June, [facility] [address] [facility] [id number] [place] [id number] June, [facility] [address] [facility] [id number] [place] [id number] May, Anxiety F41.9 and Lumbago with sciatica, left side M54.42 [facility] [place] [address] [facility] [id number] [place]ENTER[place] [id number] Apr, Dental examination Z01.[address] [id number] CENTER[place] [id number] Apr, [facility] [place] [address] [id number][place] [id number] Apr, RLS (restless legs syndrome) G25.81 ; Lumbago with sciatica, left side M54.42 and Anxiety F41.9 [facility] [place] [address] [id number], [place] [id number] Mar, [facility] [place] [id number] [place] [address] [id number] Mar, Insomnia, unspecified type G47.00 [facility] [place] [id number], [place] [id number] Mar, Insomnia, unspecified type G47.00 and RLS (restless legs syndrome) G25.81 [facility] [place] [address] [id number] CENTER, [place] [id number] Mar, [facility] ARNOLDRUFFIN [employer] [place] [address] AVE [id number] CENTER[place] [id number] Mar, Dental examination Z01.20 [facility] [address]00565100[place], [place] [address] Mar, [facility] [place] [id number], [place] [id number] Mar, Lumbago with sciatica, left side M54.42 and Anxiety F41.[address] [facility] [address] [facility] [id number], [place] [address] Mar, [facility] [place] [id number] [place] [address] [id number] Mar, Insomnia, unspecified type G47.00 [facility] [place] [id number], [place] [id number] Mar, [facility] [place] [address] [id number], [place] [id number] Feb, Insomnia, unspecified type G47.00 [place] [id number] [place] [address] [id number] Feb, Lumbago with sciatica, left side M54.42 and Anxiety F41.9 [facility] [id number] [place] [address] [id number] Feb, [place] [id number] [place] [address] [id number] Feb, RLS (restless legs syndrome) G25.81 ; Lumbago with sciatica, left side M54.42 ; Overactive bladder N32.81 and Anxiety F41.9 [place] [id number] [place] [address] [id number] Jan, Overactive bladder N32.81 and Moderate persistent asthma without complication J45.40 [place] [id number] [place] [address] [id number] Jan, Lumbago with sciatica, left side M54.42 and Insomnia, unspecified type G47.00 [place] [id number] [place] [address] [id number] Jan, RLS (restless legs syndrome) G25.81 [place] [id number] [place] [address] [id number] Dec, Overactive bladder N32.81 and Other chronic pain G89.29 [place] [id number] [place] [address] [id number] Dec, Lumbago with sciatica, left side M54.42 ; Insomnia, unspecified type G47.00 and RLS (restless legs syndrome) G25.[address] [place] [address] [id number] Nov, Overactive bladder N32.81 [facility] [id number] [place] [address] [id number] Nov, [facility] [id number] [place] [address] [id number] Nov, Lumbago with sciatica, left side M54.42 ; Insomnia, unspecified type G47.00 and RLS (restless legs syndrome) G25.81 [facility] [place] [id number], [place] [address] Nov, Constipation, unspecified constipation type K59.00 ; Lumbago with sciatica , left side M54.42 ; Insomnia, unspecified type G47.00 ; Bloating R14.0 and Encounter for immunization Z23 [facility] [place] [address] [id number] CENTER[place] [id number] Oct, Dental examination Z01.20 [facility] [place] [id number], [place] [address]16799198 Oct, RLS (restless legs syndrome) G25.81 ; Lumbago with sciatica, left side M54.42 and Insomnia, unspecified type G47.00 [facility] [place] [id number], [place] [id number] Sep, Moderate persistent asthma without complication J45.40 [facility] [place] [address] [place] [address] AVE [id number] [place] [id number] Sep, Dental examination Z01.20 [facility] [place] [id number], [place] [id number] Sep, Lumbago with sciatica, left side M54.42 and Insomnia, unspecified type G47.00 [facility] [place] [id number], [place] [id number] Sep, RLS (restless legs syndrome) G25.[address] [facility] [address]00565100[place], [place] [address] Aug, [facility] [place] [id number], [place] [id number] Aug, [facility]IGA Margarita [facility] [place] [id number] [place] [address] Aug Insomnia, unspecified type G47.00 [facility] [place] [address] [id number] CENTER[place] [id number] Aug, Dental examination Z01.20 [facility] [place] [id number], [place] [id number] Aug, Vaginal discharge N89.8 [facility] [place] [id number], [place] [id number] Aug, RLS (restless legs syndrome) G25.81 [facility] [address] [id number] [place]ENTER[place] [id number] Aug, Dental examination Z01.20 [facility] [address] [id number] CENTER, [place] [id number] Jul, Dental examination Z01.20 [facility] [place] [id number], [place] [id number] Jul, Lumbago with sciatica, left side M54.42 ; RLS (restless legs syndrome) G25.81 ; Moderate persistent asthma without complication J45.40 and Other specified hypothyroidism E03.8 [address]00565100[place], [place] [id number] Jul, Insomnia, unspecified type G47.00 and Lumbago with sciatica, left side M54.[address] [id number] CENTER, [place] [id number] Jul, Dental examination Z01.20 [facility] [address]00565100[place] [address] May, Dental examination Z01.20 and Dental caries K02.9 [address]00565100[place], [place] [id number] May, [facility] [place] [id number], [place] 4255432[address] May, RLS (restless legs syndrome) G25.81 [place] [id number], [place] [id number] May, Lumbago with sciatica, left side M54.42 ; Insomnia, unspecified type G47.00 and RLS (restless legs syndrome) G25.81 [facility] [address] [id number], [place] [address]74696747 Apr, Muscle spasms of both lower extremities M62.838 ; Constipation, unspecified constipation type K59.00 and Insomnia, unspecified type G47.00 [facility] [place] [id number] [place] [address] [id number] Apr, [facility] [place] [id number] [place] [address] [id number] Apr, Anxiety F41.9 and Lumbago with sciatica, left side M54.42 [facility] [address]00565100[place] [id number] Mar, Encounter for dental examination and cleaning without abnormal findings Z01.20 [facility] [place] [id number] [place] [address] [id number] Mar, Muscle cramp, nocturnal R25.2 [facility] [place] [id number] [place] [address] [id number] Mar, 2016 RLS (restless legs syndrome) G25.81 ; Anxiety F41.9 ; Lumbago with sciatica, left side M54.42 ; Insomnia, unspecified type G47.00 and Muscle cramps R25.[address] [facility] [address] [id number], [place] [address] Mar, [facility] [place] [id number] [place] [address] [id number] Feb, [facility] [place] [id number] [place] [address] [id number] Feb, [facility] [place] [id number] [place] [address] [id number] Jan, [facility] [place] [id number] [place] [address] [id number] Jan, Moderate persistent asthma without complication J45.40 [facility] [place] [id number] [place] [address] [id number] Jan, [facility] [place] [id number] [place] [address] [id number] Jan, [facility] [place] [id number] [place] [address] [id number] Jan, [facility] [place] [address] [place] [id number] Jan, [facility] [place] [address] [id number], [place] [id number] Dec, [facility] [address]00565100[place], [place] 44503931[address] Dec, [facility] [place] [id number], [place] [id number] Nov, [facility] [place] [address] [id number], [place] [id number] Nov, [facility] [address] [id number] CENTER[place] 829156431 Nov, Dental examination Z01.20 [facility] [address] [id number], [place] 859686562 Nov, Bipolar depression F31.30 [facility] [id number], [place] [id number] Nov, Lumbago with sciatica, left side M54.42 ; Allergic rhinitis, unspecified allergic rhinitis type J30.9 ; Bipolar depression F31.30 ; Moderate persistent asthma without complication J45.40 ; Encounter for immunization Z23 ; Abdominal spasms R10.9 and Benign essential hypertension I10 [facility] [address] [id number], [place] [id number] Nov, [facility] [place] [address] [id number], [place] [id number] Oct, [facility] [place] [address] [id number], [place] [id number] Oct, [facility] [place] [address] [id number], [place] [id number] Sep, [facility] [place] [address] [id number], [place] [id number] Sep, [facility] [place] [address] [id number], [place] [id number] Sep, [facility] Z[facility]IG[facility] [address] [place], [place] [address] [id number] [place] [address] Sep [facility] [place] [address] [id number], [place] [id number] Aug, [facility] [address] [facility] [id number], [place] [id number] Aug, Dental examination Z01.20 [facility] [id number], [place] [id number] Aug, [address] [id number] CENTER[place] [id number] Aug, [facility] [id number] [place] [address] [id number] Jul, Allergic rhinitis, unspecified allergic rhinitis type J30.9 ; RLS ( restless legs syndrome) G25.81 ; Lumbago with sciatica, left side M54.42 and Other chronic pain G89.29 [place] [id number] [place] [address] [id number] Jul, Allergic rhinitis, unspecified allergic rhinitis type J30.9 and RLS ( restless legs syndrome) G25.81 [address] [place] [address] [id number] Jul, [place] [id number] [place] [address] [id number] June, Hypo-osmolality and hyponatremia E87.1 and Benign essential hypertension I10 [facility] [id number], [place] [id number] June, [place] [id number] [place] [address] [id number] June, Moderate persistent asthma without complication J45.40 ; RLS (restless legs syndrome) G25.81 ; Benign essential hypertension I10 ; Anxiety F41.9 and Constipation, unspecified constipation type K59.00 [address] [id number] CENTER, [place] [id number] June, Encounter for dental examination and cleaning without abnormal findings Z01.20 [facility] [place] [address] [place], [place] [address]E [id number] CENTER[place] [id number] June, [address] [place] [address] [id number] June, [facility] [place] [address] [id number] [place] [id number] June, [facility] [place] [address] [id number] [place] [id number] May, [facility] [place] [address] [id number] [place] [id number] May, [facility] [place] [address] [id number] [place] [id number] May, [facility] [place] [address] [id number] [place] [id number] May, [facility] [place] [address] [id number] [place] [id number] Apr, [facility] [place] [address] [id number] [place] [id number] Apr, Anxiety F41.9 [facility] [place] [address] [id number] [place] [id number] Apr, [facility] [place] [address] [id number] [place] [id number] Mar, [facility] [place] [address] [id number] [place] [id number] Mar, [facility] [place] [address] [id number] [place] [id number] Mar, [facility] [place] [address] [id number] [place] [id number] Mar, RLS (restless legs syndrome) G25.81 ; Anxiety F41.9 and Moderate persistent asthma without complication J45.40 [facility] [place] [address] [id number] [place] [id number] Mar, [facility] [place] [address] [id number] [place] [id number] Mar, [facility] [place] [address] [id number] [place] [id number] Feb, [facility] [place] [address] [id number] [place] [id number] Feb, [facility] [place] [address] [id number] [place] [id number] Feb, [facility] [address] [id number] CENTER[place] [id number] Feb, Encounter for dental examination Z01.20 [facility] [id number] [place] [address] [id number] Feb, [facility] [id number], [place] [id number] Jan, [facility] [id number] [place] [address] [id number] Jan, Benign essential hypertension I10 [facility] [id number] [place] [address] [id number] Jan, RLS (restless legs syndrome) G25.81 and Gastroesophageal reflux disease, esophagitis presence not specified K21.9 [facility] [id number] [place] [address] [id number] Jan, [facility] [id number] [place] [address] [id number] Jan, [facility] [id number] [place] [address] [id number] Dec, Anxiety F41.9 ; Benign essential hypertension I10 and RLS (restless legs syndrome) G25.81 [place] [id number] [place] [address] [id number] Dec, RLS (restless legs syndrome) G25.81 ; Esophageal reflux 530.81 and Anxiety F41.[address] [id number] [place]ENTER, [place] [id number] Dec, [facility] [id number], [place] [id number] Nov, Anxiety F41.9 [address] [place] [address] [id number] Nov, Encounter for immunization Z23 ; Anxiety F41.9 ; Benign essential hypertension I10 ; RLS (restless legs syndrome) G25.[address] [facility] [address] [id number], [place] 74797629- [address] Nov, [facility] [id number] [place] [address] [id number] Nov, [facility] [address] [id number] [place] [id number] Nov, [facility] [place] [address] [id number], [place] [id number] Nov, [place] [address] [facility] [id number], [place] [id number] Nov, [facility] [address] [id number] CENTER[place] [id number] Oct, [place] [address] [facility] [id number], [place] [id number] Oct, [facility] [place] [id number], [place] [id number] Oct, [facility] [address] [id number], [place] [id number] Oct, Asthma, unspecified, unspecified status 493.90 ; Esophageal reflux 530.81 and Essential hypertension, benign 401.1 [facility] [place] [address] [id number], [place] [id number] Oct, [facility] [place] [address] [id number], [place] [id number] Oct, [facility] [place] [address] [id number], [place] [id number] Oct, [facility] [place] [address] [id number], [place] [id number] Sep, [facility] [place] [id number], [place] [id number] Sep, Esophageal reflux 530.81 ; Insomnia 780.52 and Essential hypertension, benign 401.1 [facility] [place] [address] [id number], [place] [id number] Sep, [facility] [place] [address] [id number], [place] [id number] Sep, [facility] [place] [address] [id number], [place] [id number] Sep, [facility] [address] [id number], [place] [id number] Sep, [facility] [place] [address] [id number], [place] [id number] Sep, [facility] [place] [address] [id number], [place] [id number] Sep, [facility] [place] [address] [id number], [place] [id number] Sep, [facility] [place] [id number] [place] [address] [id number] Sep, Essential hypertension, benign 401.1 ; Hyponatremia 276.1 and 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 [facility] [place] [address] [id number], [place] [id number] Sep, [facility] [place] [id number] [place] [address] [id number] Aug, [facility] [place] [address] [id number] [place] [address] [id number] Aug, [facility] [place] [id number] [place] [address] [id number] Jul, [facility] [place] [address] [id number], [place] [id number] Jul, [facility] [place] [id number] [place] [address] [id number] Jul, [facility] [place] [address] [id number] [place] [address] [id number] Jul, [facility] [place] [address] [id number], [place] [id number] Jul, [facility] [place] [address] [id number], [place] [id number] Jul, Insomnia 780.52 [facility] [place] [address] [id number], [place] [id number] June, Muscle stiffness 728.9 and Insomnia 780.52 [facility] [place] [address] [id number], [place] [id number] June, [facility] [place] [address] [id number], [place] [id number] June, [facility] [place] [address] [id number], [place] [id number] June, [facility] [place] [address] [facility] [id number], [place] [id number] June, [facility] [place] [address] [facility] [id number] [place] [id number] May, [facility] [address] [facility] [id number], [place] [address] May, [facility] [address] [facility] [id number], [place] [address]- [address] May, [facility] [place] [address] [facility] [id number], [place] [id number] Apr, [facility] [address] [facility] [id number], [place] [address]- [address] Apr, [facility] [place] [address] [id number], [place] [id number] Apr, [facility] [id number], [place] [address] Apr, [facility] [id number], [place] [address] Apr, [facility] [id number], [place] [address] Apr, [facility] [address] [id number] [id number] Apr, [facility] [address] [id number], [place] [address] Apr, [facility] [address] [facility] [id number][place] [id number] Mar, [facility] [address] [facility] [place] [id number], [place] [address] Mar, [facility] [address] [place] [facility] [id number][place] [id number] Mar, [facility] [address] [id number], [place] [address] Mar, [facility] [address] [id number] [id number] Mar, [facility] [address] [facility] [id number], [place] [address] Mar, [facility] [address] [facility] [id number], [place] [address] Mar, [facility] [address] [id number] [place] [id number] Feb, [facility] [address] [id number], [place] [address] Feb, [facility] [address] [id number] [place] [id number] Feb, [facility] [address] [id number] [place] [id number] Feb, [facility] [address] [place] [facility] [id number][place] [id number] Feb, [facility] [id number], [place] [address] Feb, [facility] [address] [facility] [id number], [place] [address] Feb, [facility] [address] [facility] [place] [id number], [place] [address] Feb, [facility] [address] [place] [facility] [id number][place] [id number] Feb, [facility] [address] [facility] [id number], [place] [address] Feb, [facility] [address] [place] [facility] [id number], [place] [id number] Feb, [facility] [address] [facility] [id number], [place] [address] Feb, [facility] [address] [facility] [id number] [address] Jan, [facility] [address] [facility] [id number] [id number] Jan, [facility] [address] [id number], [place] [address] Jan, [facility] [address] [id number] [id number] Jan, [facility] [id number], [place] [address] Jan, [facility] [address] [id number] [id number] Jan, [facility] [id number], [place] [address] Jan, [facility] [id number], [place] [address] Jan, [facility] [id number] [id number] Jan, [facility] [id number], [place] [address] Jan, [facility] [id number], [place] [address] June, IMMUNIZATIONS No Known Immunizations SOCIAL HISTORY Never Assessed REASON FOR VISIT Refill request PLAN OF CARE VITAL SIGNS MEDICATIONS Medication Instructions Dosage Frequency Start Date End Date Duration Status Clonazepam 0.5 MG Orally Once a day at HS, PRN for RLS. Must last one month 1.5 tablet Jul, 0 days Active Zolpidem Tartrate 10 mg Orally Once a day must last 1 m 1 tablet at bedtime as needed 0 days Active Tramadol HCl 50 mg Orally 2 times a day must last 1 month 1 tablet 0 days Active RESULTS No Results PROCEDURES [...]
--- OUTSIDE RECORDS SUMMARY | 2017-08-27 16:33 | XMS REPORT ---
Author Author AIMEE LING Organization [employer] Address Unknown Phone Unavailable Care Team Providers Care Toxicologist Name Role Phone AIMEE LING CP Unavailable [...]
--- OUTSIDE RECORDS SUMMARY | 2017-08-27 16:33 | XMS REPORT ---
Author Author AIMEE LING [facility] Address [address] [place] [address] Care Team Providers Care Blasting Entryman Name Role Phone AIMEE LING Unavailable PROBLEMS Type Condition ICD9-CM Code AVZ12-DM Code Onset Dates Condition Status SNOMED Code Problem Allergic rhinitis, unspecified allergic rhinitis type J30.9 Active 03541572 Problem Bipolar depression F31.30 Active 66822066 Problem Lumbago with sciatica, left side M54.42 Active 490006399 Problem Other chronic pain G89.29 Active 14413948 Problem Overactive bladder N32.81 Active 709103499 Problem Insomnia, unspecified type G47.00 Active 169675065 Problem Abdominal spasms R10.9 Active 28359295 Problem Other specified hypothyroidism E03.8 Active 90052739 Problem Muscle spasms of both lower extremities M62.838 Active 399416192 Problem 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 61022288 Problem Hyponatremia 276.1 Active 45461282 Problem Insomnia 780.52 Active 015031753 Problem Anxiety F41.9 Active 58214753 Problem Gastroesophageal reflux disease, esophagitis presence not specified K21.9 Active 714667867 Problem RLS (restless legs syndrome) G25.81 Active 56426016 Problem Moderate persistent asthma without complication J45.40 Active 121872088 Problem Benign essential hypertension I10 Active 8213966 Problem Constipation, unspecified constipation type K59.00 Active 57619813 ALLERGIES No Information ENCOUNTERS Encounter Location Date Diagnosis [facility] [address] [id number] [place] [id number] June, [facility] [address] [id number] [place] [id number] Apr, Dental examination Z01.20 [facility] [address] [id number] [place] [id number] Apr, [facility] [id number], [place] [phone] Apr, RLS (restless legs syndrome) G25.81 ; Lumbago with sciatica, left side M54.42 and Anxiety F41.9 [facility] [place] [address] [id number], [place] [phone] Mar, [facility] [place] [id number] [place] [address] [phone] Mar, Insomnia, unspecified type G47.00 [facility] [place] [id number] [place] [address] [id number] Mar, Insomnia, unspecified type G47.00 and RLS (restless legs syndrome) G25.81 [facility] [address] [address] [facility] [address] [id number] [place]KE[place] [id number] Mar, [facility] [address] [id number] [place] [id number] Mar, Dental examination Z01.20 [facility] [id number] [place] [address] 9[address]84- [phone] Mar, [facility] [place] [id number] [place] [address] [phone] Mar, Lumbago with sciatica, left side M54.42 and Anxiety F41.9 [facility] [id number] [place] [address] 64648- 2546 Mar, [facility] [place] [id number] [place] [address] [id number] Mar, Insomnia, unspecified type G47.00 [facility] [place] [id number], [place] [id number] Mar, [facility] [place] [id number] [place] [address] [id number] Feb, Insomnia, unspecified type G47.00 [facility] [place] [id number], [place] [phone] Feb, Lumbago with sciatica, left side M54.42 and Anxiety F41.9 [facility] [place] [address] [id number], [place] [id number] Feb, [facility] [place] [id number] [place] [address] [phone] Feb, RLS (restless legs syndrome) G25.81 ; Lumbago with sciatica, left side M54.42 ; Overactive bladder N32.81 and Anxiety F41.9 [facility] [place] [id number] [place] [address] [id number] Jan, Overactive bladder N32.81 and Moderate persistent asthma without complication J45.40 [facility] [place] [id number] [place] [address] [phone] Jan, Lumbago with sciatica, left side M54.42 and Insomnia, unspecified type G47.00 [facility] [id number] [place] [address] [phone] Jan, RLS (restless legs syndrome) G25.81 [facility] [id number] [place] [address] [phone] Dec, Overactive bladder N32.81 and Other chronic pain G89.29 [facility] [place] [id number] [place] [address] [id number] Dec, Lumbago with sciatica, left side M54.42 ; Insomnia, unspecified type G47.00 and RLS (restless legs syndrome) G25.81 [facility] [id number], [place] [phone] Nov, Overactive bladder N32.81 [facility] [address] [id number] [place] [address] [phone] Nov, [facility] [place] [id number] [place] [address] [id number] Nov, Lumbago with sciatica, left side M54.42 ; Insomnia, unspecified type G47.00 and RLS (restless legs syndrome) G25.81 [facility] [id number], [place] [phone] Nov, Constipation, unspecified constipation type K59.00 ; Lumbago with sciatica , left side M54.42 ; Insomnia, unspecified type G47.00 ; Bloating R14.0 and Encounter for immunization Z23 [facility] [place] [address] [facility] [address] [id number] LAKE[place] [id number] Oct, Dental examination Z01.20 [facility] [place] [address] [id number], [place] [phone] Oct, RLS (restless legs syndrome) G25.81 ; Lumbago with sciatica, left side M54.42 and Insomnia, unspecified type G47.00 [facility] [place] [address] [id number], [place] [id number] Sep, Moderate persistent asthma without complication J45.40 [facility] [place] [address] [facility] [address] [id number] [place]KE[place] [id number] Sep, Dental examination Z01.20 [facility] [place] [id number], [place] [id number] Sep, Lumbago with sciatica, left side M54.42 and Insomnia, unspecified type G47.00 [facility] [place] [id number], [place] [id number] Sep, RLS (restless legs syndrome) G25.81 [facility] [address]00565100[place], [place] [phone] Aug, [facility] [place] [id number], [place] [phone] Aug, [facility] [address] [id number] [place] [address] Aug Insomnia, unspecified type G47.00 [facility] [place] [address] [facility] [address] [id number] LAKE[place] [phone] Aug, Dental examination Z01.20 [facility] [place] [address] [id number], [place] [phone] Aug, Vaginal discharge N89.8 [facility] [place] [id number], [place] [id number] Aug, RLS (restless legs syndrome) G25.81 [facility] [place] [address] [facility] [address] [id number] [place]KE[place] [id number] Aug, Dental examination Z01.20 [facility] [place] [address] [facility] [address] [id number] [place] [phone] Jul, Dental examination Z01.20 [facility] [place] [address] [id number] [place] [id number] Jul, Lumbago with sciatica, left side M54.42 ; RLS (restless legs syndrome) G25.81 ; Moderate persistent asthma without complication J45.40 and Other specified hypothyroidism E03.8 [facility] [place] [address] [id number] [place] [id number] Jul, Insomnia, unspecified type G47.00 and Lumbago with sciatica, left side M54.42 [facility] [address] [facility] [address] [id number] LAKE[place] [id number] Jul, Dental examination Z01.20 [facility] [place] [address] [place] [address] AVE [id number] LAKE[place] [id number] May, Dental examination Z01.20 and Dental caries K02.9 [facility] [place] [address] [id number], [place] [phone] May, [facility] [place] [address] [id number], [place] [phone] May, RLS (restless legs syndrome) G25.81 [facility] [place] [address] [id number], [place] [id number] May, Lumbago with sciatica, left side M54.42 ; Insomnia, unspecified type G47.00 and RLS (restless legs syndrome) G25.81 [facility] [place] [address] [id number] [place] [id number] Apr, Muscle spasms of both lower extremities M62.838 ; Constipation, unspecified constipation type K59.00 and Insomnia, unspecified type G47.00 [facility] [place] [address] [id number], [place] [id number] Apr, [facility] [place] [id number] [place] [address] [id number] Apr, Anxiety F41.9 and Lumbago with sciatica, left side M54.42 [facility] [address] [id number] LAKE[place] [id number] Mar, Encounter for dental examination and cleaning without abnormal findings Z01.20 [facility] [place] [address] [id number], [place] [id number] Mar, Muscle cramp, nocturnal R25.2 [facility] [place] [id number] [place] [address] [id number] 14 Mar, 2016 RLS (restless legs syndrome) G25.81 ; Anxiety F41.9 ; Lumbago with sciatica, left side M54.42 ; Insomnia, unspecified type G47.00 and Muscle cramps R25.2 [facility] [id number] [place] [address] 32033- 0077 Mar, [facility] [id number] [place] [address] [id number] Feb, [facility] [address] [id number] [place] [address] [id number] Feb, [facility] [address] [id number] [place] [address] [id number] Jan, [facility] [address] [id number] [place] [address] [id number] Jan, Moderate persistent asthma without complication J45.40 [facility] [id number] [place] [address] [id number] Jan, [facility] [address] [id number] [place] [address] [id number] Jan, [facility] [address] [id number] [place] [address] [phone] Jan, [facility] [address] [id number] [place] [address] [id number] Jan, [facility] [address] [id number] [place] [address] [id number] Dec, [facility] [address] [address] Dec, [facility] [place] [address] [id number], [place] [id number] Nov, [facility] [place] [address] [id number], [place] [id number] Nov, [facility] [place] [address] [facility] [address] [id number] LAKE[place] [id number] Nov, Dental examination Z01.20 [facility] [place] [address] [id number], [place] [phone] Nov, Bipolar depression F31.30 [facility] [place] [address] [id number], [place] [phone] Nov, Lumbago with sciatica, left side M54.42 ; Allergic rhinitis, unspecified allergic rhinitis type J30.9 ; Bipolar depression F31.30 ; Moderate persistent asthma without complication J45.40 ; Encounter for immunization Z23 ; Abdominal spasms R10.9 and Benign essential hypertension I10 [facility] [place] [address] [id number], [place] [phone] Nov, [facility] [place] [address] [id number], [place] [id number] Oct, [facility] [place] [address] [id number], [place] [phone] Oct, [facility] [place] [address] [id number], [place] [phone] Sep, [facility] [place] [address] [id number], [place] [phone] Sep, [facility] [place] [address] [id number], [place] [id number] Sep, [facility] [place] [address] [id number] [place] [address] Sep [facility] [place] [address] [id number], [place] [id number] Aug, [facility] [address] [id number], [place] [id number] Aug, Dental examination Z01.20 [facility] [place] [address] [id number], [place] [id number] Aug, [facility] [address] [id number] LAKE, [place] [id number] Aug, [facility] [id number] [place] [address] [phone] Jul, Allergic rhinitis, unspecified allergic rhinitis type J30.9 ; RLS ( restless legs syndrome) G25.81 ; Lumbago with sciatica, left side M54.42 and Other chronic pain G89.29 [facility] [id number] [place] [address] [id number] Jul, Allergic rhinitis, unspecified allergic rhinitis type J30.9 and RLS ( restless legs syndrome) G25.81 [facility] [id number] [place] [address] [id number] Jul, [facility] [id number] [place] [address] [id number] June, Hypo-osmolality and hyponatremia E87.1 and Benign essential hypertension I10 [facility] [id number] [place] [address] [id number] June, [place] [id number] [place] [address] [phone] June, Moderate persistent asthma without complication J45.40 ; RLS (restless legs syndrome) G25.81 ; Benign essential hypertension I10 ; Anxiety F41.9 and Constipation, unspecified constipation type K59.00 [facility] [address] [id number] LAKE[place] [phone] June, Encounter for dental examination and cleaning without abnormal findings Z01.[address] [id number] LAKE, [place] [id number] June, [facility] [id number], [place] [id number] June, [facility] [id number] [place] [address] [id number] June, [facility] [id number] [place] [address] [id number] May, [place] [id number] [place] [address] [phone] May, [facility] [place] [address] [id number], [place] [phone] May, [facility] [place] [address] [id number] [place] [address] [phone] May, [facility] [place] [address] [id number], [place] [id number] Apr, [facility] [place] [address] [id number] [place] [address] [phone] Apr, Anxiety F41.9 [facility] [place] [id number] [place] [address] [id number] Apr, [facility] [place] [address] [id number] [place] [address] [phone] Mar, [facility] [place] [address] [id number] [place] [address] [phone] Mar, [facility] [place] [id number] [place] [address] [id number] Mar, [facility] [place] [address] [id number] [place] [address] [id number] Mar, RLS (restless legs syndrome) G25.81 ; Anxiety F41.9 and Moderate persistent asthma without complication J45.40 [facility] [place] [address] [id number] [place] [address] [id number] Mar, [facility] [place] [address] [id number], [place] [id number] Mar, [facility] [place] [address] [id number], [place] [phone] Feb, [facility] [place] [address] [id number], [place] [phone] Feb, [facility] [place] [address] [id number], [place] [phone] Feb, [facility] [place] [address]00565100[place] [phone] Feb, Encounter for dental examination Z01.20 [facility] [place] [address] [id number], [place] [phone] Feb, [facility] [place] [address] [id number] [place] [address] [phone] Jan, [facility] [place] [address] [id number], [place] [phone] Jan, Benign essential hypertension I10 [facility] [place] [id number], [place] [id number] Jan, RLS (restless legs syndrome) G25.81 and Gastroesophageal reflux disease, esophagitis presence not specified K21.9 [facility] [place] [id number] [place] [address] [id number] Jan, [facility] [place] [id number] [place] [address] [phone] Jan, [facility] [place] [id number] [place] [address] [id number] Dec, Anxiety F41.9 ; Benign essential hypertension I10 and RLS (restless legs syndrome) G25.81 [facility] [place] [id number], [place] [phone] Dec, RLS (restless legs syndrome) G25.81 ; Esophageal reflux 530.81 and Anxiety F41.9 [facility] [address] [id number] LAKE, [place] [id number] Dec, [facility] [place] [id number] [place] [address] [id number] Nov, Anxiety F41.9 [facility] [place] [id number] [place] [address] [id number] Nov, Anxiety F41.9 ; Encounter for immunization Z23 ; Benign essential hypertension I10 ; RLS (restless legs syndrome) G25.81 and Rhinitis J31.0 [facility] [address] [facility] [id number], [place] 90919523- [address]13 Nov, [facility] [place] [id number], [place] [id number] Nov, [facility] [address] [id number] LAKE[place] [phone] Nov, [facility] [address] [id number], [place] [id number] Nov, [address] [id number] [place] [id number] Nov, [facility] [id number] LAKE, [place] [phone] Oct, zzW[place]IAN [place] [address] [facility] [id number] [place] [phone] Oct, [facility] [place] [id number], [place] [phone] Oct, [facility] [place] [id number], [place] [id number] Oct, Esophageal reflux 530.81 ; Asthma, unspecified, unspecified status 493.90 and Essential hypertension, benign 401.1 [facility] [place] [id number], [place] [id number] Oct, [facility] [place] [id number], [place] [phone] Oct, [facility] [place] [id number], [place] [id number] Oct, [facility] [place] [id number], [place] [phone] Sep, [facility] [place] [id number] [place] [address] [phone] Sep, Esophageal reflux 530.81 ; Insomnia 780.52 and Essential hypertension, benign 401.1 [facility] [place] [id number], [place] [phone] Sep, [facility] [place] [address] [id number], [place] [id number] Sep, [facility] [place] [address] [id number], [place] [phone] Sep, [facility] [place] [address] [id number], [place] [phone] Sep, [facility] [place] [id number], [place] [id number] Sep, [facility] [place] [id number], [place] [phone] Sep, [facility] [place] [address] [place] [id number] [place] [address] [id number] Sep, [facility] [address] [id number], [place] [phone] Sep, Essential hypertension, benign 401.1 ; Hyponatremia 276.1 and 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 [facility] [place] [address] [id number], [place] [id number] Sep, [facility] [address] [id number], [place] [id number] Aug, [facility] [id number] [place] [address] [id number] Aug, [facility] [id number] [place] [address] [id number] Jul, [facility] [id number] [place] [address] [id number] Jul, [facility] [id number] [place] [address] [id number] Jul, [facility] [id number] [place] [address] [id number] Jul, [facility] [address] [id number] [id number] Jul, [facility] [id number] [place] [address] [id number] Jul, Insomnia 780.52 [facility] [id number][place] [id number] June, Muscle stiffness 728.9 and Insomnia 780.52 [facility] [address] [id number][place] [id number] June, [facility] [address] [id number], [place] [id number] June, [facility] [address] [id number][place] [id number] June, [facility] [address] [id number][place] [id number] June, [facility] [address] [id number][place] [id number] May, [facility] [address] [id number] [address] 14 May, 2014 [facility] [address] [facility] [id number], [place] [address] May, [facility] [address] [facility] [id number][place] [id number] Apr, [facility] [address] [id number], [place] [address] Apr, [facility] [address] [facility] [id number][place] [id number] Apr, [facility] [address] [facility] [id number], [place] [address] Apr, [facility] [address] [id number], [place] [address] Apr, [facility] [id number], [place] [address] Apr, [facility] [address] [id number] [id number] Apr, [facility] [address] [id number], [place] [address] Apr, [facility] [address] [facility] [id number], [place] [id number] Mar, [facility] [address] [id number], [place] [address] Mar, [facility] [address] [id number][place] [id number] Mar, 2014 [facility] [address] [facility] [facility] [id number] [address] Mar, [facility] [address] [facility] [id number] [id number] Mar, [facility] [place] [facility] [address] [facility] [id number][place] [address] Mar, [facility] [place] [facility] [address] [id number] [address] Mar, [facility] [address] [id number] [place] [id number] Feb, [facility] [place] [facility] [address] [facility] [id number][place] [address] Feb, [facility] [address] [id number] [place] [id number] Feb, [facility] [address] [id number] [place] [id number] Feb, [facility] [address] [id number] [place] [id number] Feb, [facility] [place] [facility] [address] [facility] [id number] [place] [address] Feb, [facility] [place] [facility] [address] [facility] [id number] [place] [address] Feb, [facility] [place] [facility] [id number], [place] [address] Feb, [facility] [address] [facility] [id number][place] [id number] Feb, [facility] [place] [facility] [address] [facility] [id number], [place] [address] Feb, [facility] [address] [facility] [id number][place] [id number] Feb, [facility] [place] [facility] [address] [id number], [place] [address] Feb, [facility] [place] [facility] [address] [facility] [id number], [place] [address] Jan, [facility] [address] [facility] [id number] [place] [id number] Jan, [facility] [place] [facility] [address] [facility] [id number], [place] [address] Jan, [facility] [address] [facility] [id number][place] [id number] Jan, [facility] [place] [facility] [address] [id number], [place] [address] Jan, [facility] [address] [facility] [id number] [place] [id number] Jan, [facility] [place] [facility] [address] [facility] [id number], [place] [address] Jan, [facility] [place] [facility] [address] [facility] [id number], [place] [address] Jan, [facility] [address] [facility] [id number][place] [id number] Jan, [facility] [place] [facility] [address] [facility] [id number], [place] [address] Jan, [facility] [place] [facility] [address] [id number], [place] [address] June, IMMUNIZATIONS No Known Immunizations SOCIAL HISTORY [...] Surgical History Esophagus stretched 2017 Hospitalization History [facility] for hyponatremia, change in mental status, angioedema 09/2014
--- OUTSIDE RECORDS SUMMARY | 2017-08-27 16:34 | XMS REPORT ---
Author Author AIMEE LING Organization [employer] Address Unknown Phone Unavailable Care Team Providers Care Dietary Services Manager Name Role Phone AIMEE LING [...] Instructions Start Date End Date Status Dosage Prilosec [facility] [address]-08 40 mg Orally Once a day Dec 13, 2015 1 capsule Results No Known Results Summary Purpose [employer] Submission
--- OUTSIDE RECORDS SUMMARY | 2017-08-27 16:34 | XMS REPORT ---
Author Author AIMEE LING Organization [employer] Address Unknown Phone Unavailable Care Team Providers Care Charge Entry Clerk Name Role Phone AIMEE LING CP Unavailable [...] Start Date End Date Status Dosage Clonazepam [facility] [address]-40 0.5 MG Orally Once a day at HS, PRN for RLS. Must last one month August 04, 2014 0.5 tablet Results No Known Results Summary Purpose [employer] Submission
--- OUTSIDE RECORDS SUMMARY | 2017-08-27 16:34 | XMS REPORT ---
Author Author AIMEE LING [facility] Address [address] [place] [address] Care Team Providers Care Cafe Helper Name Role Phone AIMEE LING Unavailable PROBLEMS Type Condition ICD9-CM Code PBW21-NR Code Onset Dates Condition Status SNOMED Code Problem Allergic rhinitis, unspecified allergic rhinitis type J30.9 Active 00002898 Problem Bipolar depression F31.30 Active 47904272 Problem Lumbago with sciatica, left side M54.42 Active 129784972 Problem Other chronic pain G89.29 Active 64068431 Problem Overactive bladder N32.81 Active 100092331 Problem Insomnia, unspecified type G47.00 Active 660566394 Problem Abdominal spasms R10.9 Active 58026400 Problem Other specified hypothyroidism E03.8 Active 56013980 Problem Muscle spasms of both lower extremities M62.838 Active 042551356 Problem 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 12719562 Problem Hyponatremia 276.1 Active 69816262 Problem Insomnia 780.52 Active 543532017 Problem Anxiety F41.9 Active 65788462 Problem Gastroesophageal reflux disease, esophagitis presence not specified K21.9 Active 419934586 Problem RLS (restless legs syndrome) G25.81 Active 50079807 Problem Moderate persistent asthma without complication J45.40 Active 364525259 Problem Benign essential hypertension I10 Active 9720920 Problem Constipation, unspecified constipation type K59.00 Active 90599841 ALLERGIES No Information ENCOUNTERS Encounter Location Date Diagnosis [facility] [address] [id number] [place] [id number] Aug, [facility] [address] [id number] [place] [id number] Aug, [facility] [place] [address] [id number] [place] [id number] Jul, [facility] [place] [id number], [place] [id number] Jul, Back spasm M62.830 [facility] [place] [address] [id number], [place] [id number] Jul, Back spasm M62.830 and Anxiety F41.9 [facility] [address] [id number][place] [id number] June, Insomnia, unspecified type G47.00 ; Overactive bladder N32.81 and Back spasm M62.830 [facility] [id number], [place] [id number] June, Anxiety F41.9 and Lumbago with sciatica, left side M54.42 [facility] [place] [id number] [place] [address] [id number] May, Anxiety F41.9 and Lumbago with sciatica, left side M54.42 [facility] [address] [id number] [place] [id number] Apr, Dental examination Z01.20 [facility] [address] [id number] [place] [id number] Apr, [facility] [place] [address] [id number], [place] [id number] Apr, RLS (restless legs syndrome) G25.81 ; Lumbago with sciatica, left side M54.42 and Anxiety F41.9 [facility] [place] [address] [id number], [place] [id number] Mar, [facility] [id number], [place] [id number] Mar, Insomnia, unspecified type G47.00 [facility] [place] [address] [id number], [place] [id number] Mar, Insomnia, unspecified type G47.00 and RLS (restless legs syndrome) G25.[address] [facility] [address] [id number] [place] [id number] Mar, [facility] [address] [id number] [place] [id number] Mar, Dental examination Z01.20 [facility] [address] [id number], [place] [address] Mar, [facility] [id number] [place] [address] [id number] Mar, Lumbago with sciatica, left side M54.42 and Anxiety F41.9 [facility] [id number] [place] [address] Mar, [facility] [id number] [place] [address] [id number] Mar, Insomnia, unspecified type G47.00 [facility] [id number] [place] [address] [id number] Mar, [facility] [id number] [place] [address] [id number] Feb, Insomnia, unspecified type G47.00 [facility] [id number] [place] [address] [id number] Feb, Lumbago with sciatica, left side M54.42 and Anxiety F41.9 [facility] [id number] [place] [address] [id number] Feb, [facility] [id number] [place] [address] [id number] Feb, RLS (restless legs syndrome) G25.81 ; Lumbago with sciatica, left side M54.42 ; Overactive bladder N32.81 and Anxiety F41.9 [facility] [id number], [place] [id number] Jan, Overactive bladder N32.81 and Moderate persistent asthma without complication J45.40 [facility] [place] [id number] [place] [address] [id number] Jan, Lumbago with sciatica, left side M54.42 and Insomnia, unspecified type G47.00 [facility] [id number] [place] [address] [id number] Jan, RLS (restless legs syndrome) G25.81 [facility] [id number], [place] [id number] Dec, Overactive bladder N32.81 and Other chronic pain G89.29 [facility] [id number] [place] [address] [id number] Dec, Lumbago with sciatica, left side M54.42 ; Insomnia, unspecified type G47.00 and RLS (restless legs syndrome) G25.81 [facility] [id number] [place] [address] [id number] Nov, Overactive bladder N32.81 [facility] [id number] [place] [address] [id number] Nov, [facility] [id number] [place] [address] [id number] Nov, Lumbago with sciatica, left side M54.42 ; Insomnia, unspecified type G47.00 and RLS (restless legs syndrome) G25.81 [facility] [id number] [place] [address] [id number] Nov, Constipation, unspecified constipation type K59.00 ; Lumbago with sciatica , left side M54.42 ; Insomnia, unspecified type G47.00 ; Bloating R14.0 and Encounter for immunization Z23 [address] [id number] [place]ILL[place] [id number] Oct, Dental examination Z01.20 [address] [place] [address] [id number] Oct, RLS (restless legs syndrome) G25.81 ; Lumbago with sciatica, left side M54.42 and Insomnia, unspecified type G47.00 [address] [place] [address] [id number] Sep, Moderate persistent asthma without complication J45.[id number] [place] [address] [id number] Sep, Dental examination Z01.20 [address] [place] [address] [id number] Sep, Lumbago with sciatica, left side M54.42 and Insomnia, unspecified type G47.00 [facility] [id number], [place] [id number] Sep, RLS (restless legs syndrome) G25.81 [facility] [address] [id number], [place] [address] Aug, [facility] [id number], [place] [id number] Aug, [facility] [address] [place], [place] [address] [id number] [place] [address] Aug Insomnia, unspecified type G47.00 [facility] [address] [facility] [address] [id number] [place] [id number] Aug, Dental examination Z01.20 [facility] [place] [id number], [place] [id number] Aug, Vaginal discharge N89.8 [facility] [place] [id number], [place] [id number] Aug, RLS (restless legs syndrome) G25.81 [facility] [address] [facility] [address] [id number] [place]ILL[place] [id number] Aug, Dental examination Z01.20 [facility] [address] [facility] [address] [id number] [place], [place] [id number] Jul, Dental examination Z01.20 [facility] [id number], [place] [id number] Jul, Lumbago with sciatica, left side M54.42 ; RLS (restless legs syndrome) G25.81 ; Moderate persistent asthma without complication J45.40 and Other specified hypothyroidism E03.8 [facility] [id number], [place] [id number] Jul, Insomnia, unspecified type G47.00 and Lumbago with sciatica, left side M54.42 [facility] [address] [facility] [address] [id number] [place] [id number] Jul, Dental examination Z01.[address] [facility] [address] [id number] [place]ILL[place] [id number] May, Dental examination Z01.20 and Dental caries K02.9 [facility] [address]00565100[place], [place] [id number] May, [facility] [address]00565100[place], [place] [id number] May, RLS (restless legs syndrome) G25.81 [address]00565100[place], [place] [id number] May, Lumbago with sciatica, left side M54.42 ; Insomnia, unspecified type G47.00 and RLS (restless legs syndrome) G25.81 [place] [id number] [place] [address] [id number] Apr, Muscle spasms of both lower extremities M62.838 ; Constipation, unspecified constipation type K59.00 and Insomnia, unspecified type G47.00 [address]00565100[place] [id number] Apr, [place] [id number] [place] [address] [id number] Apr, Anxiety F41.9 and Lumbago with sciatica, left side M54.[address] [id number] [place]ILL[place] [id number] Mar, Encounter for dental examination and cleaning without abnormal findings Z01.20 [address]00565100[place], [place] [id number] Mar, Muscle cramp, nocturnal R25.2 [facility] [address] [place] [address] [id number] Mar, RLS (restless legs syndrome) G25.81 ; Anxiety F41.9 ; Lumbago with sciatica, left side M54.42 ; Insomnia, unspecified type G47.00 and Muscle cramps R25.2 [facility] [address]00565100[place], [place] [address] Mar, [facility] [address] [id number], [place] [id number] Feb, [facility] [place] [address] [id number], [place] [id number] Feb, [facility] [place] [address] [id number], [place] [id number] Jan, [facility] [place] [address] [id number], [place] [id number] Jan, Moderate persistent asthma without complication J45.40 [facility] [place] [address] [id number], [place] [id number] Jan, [facility] [place] [address] [id number] [place] [id number] Jan, [facility] [place] [address] [id number], [place] [id number] Jan, [facility] [place] [address] [id number], [place] [id number] Jan, [facility] [place] [id number], [place] [id number] Dec, [facility] [address] [facility] [id number], [place] [address] Dec, [facility] [place] [address] [id number], [place] [id number] Nov, [facility] [place] [address] [id number], [place] [id number] Nov, [facility] [place] [address] [facility] [id number] [place]ILL[place] [id number] Nov, Dental examination Z01.20 [facility] [place] [address] [id number], [place] [id number] Nov, Bipolar depression F31.30 [facility] [place] [address] [id number], [place] [id number] Nov, Lumbago with sciatica, left side M54.42 ; Allergic rhinitis, unspecified allergic rhinitis type J30.9 ; Bipolar depression F31.30 ; Moderate persistent asthma without complication J45.40 ; Encounter for immunization Z23 ; Abdominal spasms R10.9 and Benign essential hypertension I10 [facility] [place] [address] [id number], [place] [id number] Nov, [facility] [place] [address] [id number] [place] [id number] Oct, [facility] [place] [address] [id number], [place] [id number] Oct, [facility] [place] [address] [id number], [place] [id number] Sep, [facility] [address] [id number], [place] [id number] Sep, [facility] [place] [address] [id number], [place] [id number] Sep, [id number] [place] [address] Sep [facility] [address] [id number], [place] [id number] Aug, [facility] [address] [id number], [place] [id number] Aug, Dental examination Z01.20 [facility] [address] [id number], [place] [id number] Aug, [address]00565100[place] [id number] Aug, [facility] [address] [id number], [place] [id number] Jul, Allergic rhinitis, unspecified allergic rhinitis type J30.9 ; RLS ( restless legs syndrome) G25.81 ; Lumbago with sciatica, left side M54.42 and Other chronic pain G89.29 [facility] [address] [id number], [place] [id number] Jul, Allergic rhinitis, unspecified allergic rhinitis type J30.9 and RLS ( restless legs syndrome) G25.81 [facility] [address] [id number], [place] [id number] Jul, [facility] [address] [id number], [place] [id number] June, Hypo-osmolality and hyponatremia E87.1 and Benign essential hypertension I10 [facility] [address] [id number] [place] [address] [id number] June, [facility] [address] [id number] [place] [address] [id number] June, Moderate persistent asthma without complication J45.40 ; RLS (restless legs syndrome) G25.81 ; Benign essential hypertension I10 ; Anxiety F41.9 and Constipation, unspecified constipation type K59.00 [facility] [place] [address] [facility] [address] [id number] [place] [address] [id number] June, Encounter for dental examination and cleaning without abnormal findings Z01.20 [facility] [place] [address] [facility] [address] [id number] [place] [address] [id number] June, [facility] [place] [address] [id number] [place] [address] [id number] June, [facility] [address] [id number] [place] [address] [id number] June, [facility] [place] [address] [id number] [place] [address] [id number] May, [facility] [place] [address] [id number] [place] [address] [id number] May, [facility] [address] [id number] [place] [address] [id number] May, [facility] [place] [address] [id number] [place] [address] [id number] May, [facility] [place] [address] [id number] [place] [address] [id number] Apr, [facility] [address] [id number] [place] [address] [id number] Apr, Anxiety F41.9 [facility] [place] [address] [id number] [place] [id number] Apr, [facility] [address] [id number] [place] [address] [id number] Mar, [facility] [address] [id number] [place] [address] [id number] Mar, [facility] [place] [address] [id number] [place] [address] [id number] Mar, [facility] [address] [id number], [place] [id number] Mar, RLS (restless legs syndrome) G25.81 ; Anxiety F41.9 and Moderate persistent asthma without complication J45.40 [facility] [place] [address] [id number] [place] [address] [id number] Mar, [facility] [place] [address] [id number] [place] [address] [id number] Mar, [facility] [place] [id number] [place] [address] [id number] Feb, [facility] [address] [id number] [place] [address] [id number] Feb, [facility] [id number] [place] [address] [id number] Feb, [address]00565100[place] [id number] Feb, Encounter for dental examination Z01.20 [facility] [address] [id number] [place] [address] [id number] Feb, [facility] [id number] [place] [address] [id number] Jan, [facility] [id number] [place] [address] [id number] Jan, Benign essential hypertension I10 [facility] [id number] [place] [address] [id number] Jan, RLS (restless legs syndrome) G25.81 and Gastroesophageal reflux disease, esophagitis presence not specified K21.9 [facility] [id number] [place] [address] [id number] Jan, [facility] [address] [id number] [place] [address] [id number] Jan, [facility] [id number] [place] [address] [id number] Dec, Anxiety F41.9 ; Benign essential hypertension I10 and RLS (restless legs syndrome) G25.81 [facility] [id number] [place] [address] [id number] Dec, RLS (restless legs syndrome) G25.81 ; Esophageal reflux 530.81 and Anxiety F41.9 [facility] [address] [address] [id number] [place] [id number] Dec, [facility] [place] [id number], [place] [id number] Nov, Anxiety F41.9 [facility] [place] [id number] [place] [address] [id number] Nov, Anxiety F41.9 ; Encounter for immunization Z23 ; Benign essential hypertension I10 ; RLS (restless legs syndrome) G25.81 and Rhinitis J31.0 [facility] [address]00565100[place], [place] [address] Nov, [facility] [id number], [place] [id number] Nov, [facility] [address] [facility] [address] [id number] [place]ILL[place] [id number] Nov, [facility] [id number] [place] [address] [id number] Nov, [address] [place] [address] [id number] Nov, [facility] [place] [address] [facility] [id number] [place] [id number] Oct, [facility] [address]00565100[place] [id number] Oct, [facility] [place] [id number], [place] [id number] Oct, [facility] [address] [id number], [place] [id number] Oct, Esophageal reflux 530.81 ; Asthma, unspecified, unspecified status 493.90 and Essential hypertension, benign 401.1 [facility] [id number], [place] [id number] Oct, [address] [place] [address] [id number] Oct, [facility] [address] [id number] [place] [id number] Oct, [facility] [address] [id number] [place] [id number] Sep, [facility] [address] [id number] [place] [id number] Sep, Esophageal reflux 530.81 ; Insomnia 780.52 and Essential hypertension, benign 401.1 [facility] [address] [id number] [place] [id number] Sep, [facility] [address] [id number] [place] [id number] Sep, [facility] [address] [id number] [place] [id number] Sep, [facility] [place] [address] [id number] [place] [id number] Sep, [facility] [address] [id number] [place] [id number] Sep, [facility] [address] [id number] [place] [id number] Sep, [facility] [address] [id number] [place] [id number] Sep, [facility] [address] [id number] [place] [id number] Sep, Essential hypertension, benign 401.1 ; Hyponatremia 276.1 and 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 [facility] [place] [address] [id number], [place] [id number] Sep, [facility] [place] [address] [id number], [place] [id number] Aug, [facility] [place] [address] [id number] [place] [id number] Aug, [facility] [place] [address] [id number] [place] [address] [id number] Jul, [facility] [place] [address] [id number] [place] [id number] Jul, [facility] [place] [address] [id number], [place] [id number] Jul, [facility] [address] [id number], [place] [id number] Jul, [facility] [address] [id number], [place] [id number] Jul, [facility] [address] [id number], [place] [id number] Jul, Insomnia 780.52 [facility] [address] [id number], [place] [id number] June, Muscle stiffness 728.9 and Insomnia 780.52 [facility] [address] [id number], [place] [id number] June, [facility] [address] [id number], [place] [id number] June, [facility] [address] [id number], [place] [id number] June, [facility] [address] [id number], [place] [id number] June, [facility] [address] [id number], [place] [id number] May, [facility] [id number], [place] [address] May, [facility] [id number] [place] [address] May, [facility] [address] [id number][place] [id number] Apr, [facility] [id number], [place] [address] Apr, [facility] [address] [facility] [id number][place] [id number] Apr, [facility] [id number] [place] [address] Apr, [facility] [address] [id number], [place] [address] Apr, [facility] [id number] [place] [address] Apr, [facility] [address] [id number] [place] [id number] Apr, [facility] [address] [facility] [id number], [place] [address] Apr, [facility] [address] [facility] [id number] [place] [id number] Mar, [facility] [id number], [place] [address] Mar, [facility] [address] [id number] [place] [id number] Mar, [facility] [id number], [place] [address] Mar, [facility] [id number][place] [id number] Mar, [facility] [id number], [place] [address] Mar, [facility] [id number], [place] [address] Mar, [facility] [id number] [place] [id number] Feb, [facility] [id number], [place] [address] Feb, [facility] [address] [id number], [place] [id number] Feb, [facility] [address] [facility] [id number] [id number] Feb, [facility] [address] [facility] [id number][place] [id number] Feb, [facility] [id number], [place] [address] Feb, [facility] [id number] [address] Feb, [facility] [address], [place] [address] Feb, [facility] [id number] [place] [id number] Feb, [facility] [address], [place] [address] Feb, [facility] [id number] [id number] Feb, [facility] [id number], [place] [address] Feb, [facility] [address], [place] [address] Jan, [facility] [id number] [id number] Jan, [facility] [id number], [place] [address] Jan, [facility] [id number] [id number] Jan, [facility] [address], [place] [address] Jan, [facility] [id number] [id number] Jan, [facility] [address], [place] [address] Jan, [facility] [address], [place] [address] Jan, [facility] [address] [id number][place] [id number] Jan, [facility] [address], [place] [address] Jan, [facility] [id number], [place] [address] June, IMMUNIZATIONS No Known Immunizations SOCIAL HISTORY Never Assessed REASON FOR VISIT 02/20/16-controlled med refills PLAN OF CARE VITAL SIGNS MEDICATIONS Medication Instructions Dosage Frequency Start Date End Date Duration Status Clonazepam 0.5 MG Orally Once a day at HS, PRN for RLS. Must last one month 1.5 tablet Jul, Active Ibuprofen 800 MG Orally 3 times a day 1 tablet 8h Active Tramadol HCl 50 mg Orally 2 times a day must last 1 month 1 tablet Active RESULTS No Results PROCEDURES No Known [...] Surgical History Esophagus stretched 2017 Hospitalization History [facility] for hyponatremia, change in mental status, angioedema 09/2014
--- OUTSIDE RECORDS SUMMARY | 2017-08-27 16:34 | XMS REPORT ---
Author Author AIMEE LING [facility] eClinicalWorks Address Unknown Phone Unavailable Care Team Providers Care Wet Pan Operator Name Role Phone AIMEE LING CP Unavailable Allergies, Adverse Reactions, Alerts Substance Reaction Event Type Lyrica hives Drug Allergy Problems Problem Type Condition ICD-9 Code Onset Dates Condition Status Problem Restless legs syndrome [RLS] 333.94 Active Problem Essential hypertension, benign 401.1 Active Problem Unspecified constipation 564.00 Active Problem 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 Problem Insomnia 780.52 Active Problem Hyponatremia 276.1 Active Problem Bipolar disorder, unspecified 296.80 Active Problem Asthma, unspecified, unspecified status 493.90 Active Problem Esophageal reflux 530.81 Active Problem Need for prophylactic vaccination and inoculation, Influenza V04.81 Active Assessment Essential hypertension, benign 401.1 Active Assessment Asthma, unspecified, unspecified status 493.90 Active Assessment Esophageal reflux 530.81 Active Problem Contact dermatitis and other eczema, due to unspecified cause 692.9 Active Medications Medication Code System Code Instructions Start Date End Date Status Dosage Imdur [facility] [place] [address]-61 30 MG Orally Once a day Oct 08, 2014 1 tablet Premarin [facility] [place] [address]-96 0.9 MG Orally Once a day Jan 14, 2014 1 tablet tramadol [place] 0 50 mg orally 3 times a day prn. Must last 1 mo. April 29, 2014 1 Tablet Zyprexa [facility] [place] [address]-20 20 MG Orally Once a day Jan 29, 2014 1 tablet Lamictal [facility] [place] [address]-42 100 MG Orally Once a day Sep 24, 2014 1 tablet Zolpidem Tartrate [facility] [place] [address]-80 10 MG Orally Once a day must last 1 m 1 tablet at bedtime as needed Clonazepam [facility] [place] [address]-40 0.5 MG Orally Once a day at HS, PRN for RLS. Must last one month August 04, 2014 0.5 tablet Lisinopril-Hydrochlorothiazide [facility] [place] [address]-97 20-12.5 MG Orally Once a day Oct 15, 2014 1 tablet Gabapentin [facility] [place] [address]-35 600 MG Orally Once a day at bedtime Mar 04, 2014 1 Tablet BusPIRone HCl [facility] [place] [address]-48 15 MG Orally Three times a day June 09, 2014 0.5 tablet Advair Diskus [facility] [place] [address]-28 250-50 MCG/DOSE Inhalation Twice a day Mar 03, 2014 inhale 1 puff Omeprazole [facility] [place] [address]-36 40 mg Feb 25, 2014 1 Capsule by Oral route 1 time per day Levothyroxine Sodium [facility] [place] [address]-61 50 MCG Orally Once a day 1 tablet ProAir HFA [facility] [place] [address]-37 108 (90 Base) MCG/ACT Inhalation 4 times a day for wheezing or SOB Oct 21, 2014 2 puffs as needed Procedures Procedure Coding System Code Date Office Visit, Est Pt., Level 3 CPT-4 02290 Oct 21, 2014 Vital Signs Date/Time: Oct 21, 2014 Temperature 99 F Weight 193 lbs Height 63 in BMI 34.18 Index Blood Pressure Diastolic 90 mmHg Blood Pressure Systolic 135 mmHg Cardiac Monitoring Heart Rate 84 bpm Results No Known Results Summary Purpose eClinicalWorks Submission
--- OUTSIDE RECORDS SUMMARY | 2017-08-27 16:35 | XMS REPORT ---
Author Author AIMEE LING Organization eClinicalWorks Address Unknown Phone Unavailable Care Team Providers Care Night Supervisor Name Role Phone AIMEE LING CP [...] Start Date End Date Status Dosage Clonazepam [facility] [address]-63 0.5 MG Orally Once a day at HS, PRN for RLS. Must last one month August 04, 2014 0.5 tablet Results No Known Results Summary Purpose eClinicalWorks Submission
--- OUTSIDE RECORDS SUMMARY | 2017-08-27 16:35 | XMS REPORT ---
Author Author AIMEE LING [facility] Address [address] [place] [address] Care Team Providers Care Motor And Controls Tester Name Role Phone AIMEE LING Unavailable PROBLEMS Type Condition ICD9-CM Code SGH53-CP Code Onset Dates Condition Status SNOMED Code Problem Encounter for dental examination and cleaning without abnormal findings Z01.20 Active 394368499 Problem Allergic rhinitis, unspecified allergic rhinitis type J30.9 Active 85520755 Problem Constipation, unspecified constipation type K59.00 Active 59258186 Problem Other specified hypothyroidism E03.8 Active 46250777 Problem Muscle spasms of both lower extremities M62.838 Active 068516894 Problem Abdominal spasms R10.9 Active 20595802 Problem Lumbago with sciatica, left side M54.42 Active 561634046 Problem Insomnia, unspecified type G47.00 Active 455338517 Problem Bipolar depression F31.30 Active 73732446 Problem Insomnia 780.52 Active 067858037 Problem 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 63965182 Problem Benign essential hypertension I10 Active 7617308 Problem Anxiety F41.9 Active 24694016 Problem Hyponatremia 276.1 Active 91976175 Problem Gastroesophageal reflux disease, esophagitis presence not specified K21.9 Active 700347873 Problem RLS (restless legs syndrome) G25.81 Active 01891809 Problem Moderate persistent asthma without complication J45.40 Active 253892554 ALLERGIES Unknown Allergies SOCIAL HISTORY No smoking Hx information available PLAN OF CARE VITAL SIGNS MEDICATIONS Medication Instructions Dosage Frequency Start Date End Date Duration Status Symbicort 80-4.5 MCG/ACT Inhalation Twice a day 2 puffs 12h 23 Jun, 2015 Active RESULTS No Results PROCEDURES No Known procedures IMMUNIZATIONS No Known Immunizations
--- OUTSIDE RECORDS SUMMARY | 2017-08-27 16:35 | XMS REPORT ---
Author Author AIMEE LING [facility] Address [address] [place] [address] Care Team Providers Care Operations Manager Name Role Phone AIMEE LING Unavailable PROBLEMS Type Condition ICD9-CM Code NUB28-CI Code Onset Dates Condition Status SNOMED Code Problem RLS (restless legs syndrome) G25.81 Active 79067602 Problem Anxiety F41.9 Active 57165374 Problem Benign essential hypertension I10 Active 0828383 Problem Bipolar disorder, unspecified 296.80 Active 64826622 Problem Insomnia 780.52 Active 050734849 Problem 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 99212391 Problem Hyponatremia 276.1 Active 90894684 Problem Lumbago with sciatica, left side M54.42 Active 045637488 Problem Allergic rhinitis, unspecified allergic rhinitis type J30.9 Active 45179070 Problem Moderate persistent asthma without complication J45.40 Active 272825632 Problem Gastroesophageal reflux disease, esophagitis presence not specified K21.9 Active 395162305 Problem Constipation, unspecified constipation type K59.00 Active 30657664 Problem Encounter for dental examination and cleaning without abnormal findings Z01.20 Active 397277695 ALLERGIES Unknown Allergies SOCIAL HISTORY No smoking Hx information available PLAN OF CARE VITAL SIGNS MEDICATIONS Medication Instructions Dosage Frequency Start Date End Date Duration Status MiraLax 17 gram/dose Orally Once a day 1 packet mixed with 8 ounces of fluid 24h Apr, Active Levothyroxine Sodium 50 MCG Orally Once a day 1 tablet 24h Active RESULTS No Results PROCEDURES No Known procedures IMMUNIZATIONS No Known Immunizations
--- OUTSIDE RECORDS SUMMARY | 2017-08-27 16:35 | XMS REPORT ---
Author Author AIMEE LING [facility] Address [address] [place] [address] Care Team Providers Care Cant Gang Sawyer Name Role Phone AIMEE LING Unavailable PROBLEMS Type Condition ICD9-CM Code XBK84-SV Code Onset Dates Condition Status SNOMED Code Problem Allergic rhinitis, unspecified allergic rhinitis type J30.9 Active 39696144 Problem Bipolar depression F31.30 Active 49880839 Problem Lumbago with sciatica, left side M54.42 Active 474062791 Problem Other chronic pain G89.29 Active 40529504 Problem Overactive bladder N32.81 Active 344844509 Problem Insomnia, unspecified type G47.00 Active 259778903 Problem Abdominal spasms R10.9 Active 38545997 Problem Other specified hypothyroidism E03.8 Active 11608697 Problem Muscle spasms of both lower extremities M62.838 Active 714688340 Problem 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 05460089 Problem Hyponatremia 276.1 Active 71251807 Problem Insomnia 780.52 Active 306871742 Problem Anxiety F41.9 Active 99000334 Problem Gastroesophageal reflux disease, esophagitis presence not specified K21.9 Active 541889114 Problem RLS (restless legs syndrome) G25.81 Active 81576302 Problem Moderate persistent asthma without complication J45.40 Active 296298377 Problem Benign essential hypertension I10 Active 4784709 Problem Constipation, unspecified constipation type K59.00 Active 79963265 ALLERGIES No Information ENCOUNTERS Encounter Location Date Diagnosis [facility] [address] [id number] [place] [id number] June, [facility] [address] [address] [id number] [place] [id number] Apr, Dental examination Z01.20 [facility] [address] [id number] [place] [id number] Apr, [facility] [id number], [place] [id number] Apr, RLS (restless legs syndrome) G25.81 ; Lumbago with sciatica, left side M54.42 and Anxiety F41.9 [facility] [address] [id number], [place] [id number] Mar, [facility] [id number] [place] [address] [id number] Mar, Insomnia, unspecified type G47.00 [facility] [id number] [place] [address] [id number] Mar, Insomnia, unspecified type G47.00 and RLS (restless legs syndrome) G25.81 [facility] [address] [id number], [place] [id number] Mar, [facility] [address] [id number], [place] [id number] Mar, Dental examination Z01.20 [facility] [place] [id number] [place] [address]- [phone] Mar, [facility] [place] [id number] [place] [address] [id number] Mar, Lumbago with sciatica, left side M54.42 and Anxiety F41.9 [facility] [place] [id number] [place] [address] 02038- [phone] Mar, [facility] [id number] [place] [address] [id number] Mar, Insomnia, unspecified type G47.00 [facility] [id number], [place] [id number] Mar, [facility] [place] [id number] [place] [address] [id number] Feb, Insomnia, unspecified type G47.00 [facility] [id number], [place] [id number] Feb, Lumbago with sciatica, left side M54.42 and Anxiety F41.9 [facility] [address] [id number], [place] [id number] Feb, [facility] [id number] [place] [address] [id number] Feb, RLS (restless legs syndrome) G25.81 ; Lumbago with sciatica, left side M54.42 ; Overactive bladder N32.81 and Anxiety F41.9 [facility] [id number] [place] [address] [id number] Jan, Overactive bladder N32.81 and Moderate persistent asthma without complication J45.40 [facility] [id number] [place] [address] [id number] Jan, Lumbago with sciatica, left side M54.42 and Insomnia, unspecified type G47.00 [facility] [id number] [place] [address] [id number] Jan, RLS (restless legs syndrome) G25.81 [facility] [id number] [place] [address] [id number] Dec, Overactive bladder N32.81 and Other chronic pain G89.29 [facility] [id number] [place] [address] [id number] Dec, Lumbago with sciatica, left side M54.42 ; Insomnia, unspecified type G47.00 and RLS (restless legs syndrome) G25.81 [facility] [id number], [place] [id number] Nov, Overactive bladder N32.81 [facility] [id number] [place] [address] [id number] Nov, [facility] [id number] [place] [address] [id number] Nov, Lumbago with sciatica, left side M54.42 ; Insomnia, unspecified type G47.00 and RLS (restless legs syndrome) G25.81 [facility] [id number], [place] [id number] Nov, Constipation, unspecified constipation type K59.00 ; Lumbago with sciatica , left side M54.42 ; Insomnia, unspecified type G47.00 ; Bloating R14.0 and Encounter for immunization Z23 [facility] [address] [id number], [place] [id number] Oct, Dental examination Z01.20 [facility] [place] [address] [id number], [place] [id number] Oct, RLS (restless legs syndrome) G25.81 ; Lumbago with sciatica, left side M54.42 and Insomnia, unspecified type G47.00 [facility] [address] [id number], [place] [id number] Sep, Moderate persistent asthma without complication J45.40 [facility] [address] [id number], [place] [id number] Sep, Dental examination Z01.20 [facility] [id number], [place] [id number] Sep, Lumbago with sciatica, left side M54.42 and Insomnia, unspecified type G47.00 [facility] [place] [id number], [place] [id number] Sep, RLS (restless legs syndrome) G25.81 [facility] [address]00565100[place], [place] [address] Aug, [facility] [id number], [place] [id number] Aug, [facility] [address] [id number] [place] [address] Aug Insomnia, unspecified type G47.00 [facility] [address] [id number], [place] [id number] Aug, Dental examination Z01.20 [facility] [address] [id number], [place] [id number] Aug, Vaginal discharge N89.8 [facility] [id number], [place] [id number] Aug, RLS (restless legs syndrome) G25.81 [facility] [address] [id number], [place] [id number] Aug, Dental examination Z01.20 [facility] [address] [id number], [place] [id number] Jul, Dental examination Z01.20 [facility] [address] [id number] [place] [id number] Jul, Lumbago with sciatica, left side M54.42 ; RLS (restless legs syndrome) G25.81 ; Moderate persistent asthma without complication J45.40 and Other specified hypothyroidism E03.8 [facility] [address] [id number] [place] [id number] Jul, Insomnia, unspecified type G47.00 and Lumbago with sciatica, left side M54.42 [facility] [place] [address] [id number], [place] [id number] Jul, Dental examination Z01.20 [facility] [address] [place] [address] AVE [id number], [place] [id number] May, Dental examination Z01.20 and Dental caries K02.9 [facility] [address] [id number], [place] [id number] May, [facility] [address] [id number], [place] [id number] May, RLS (restless legs syndrome) G25.81 [facility] [address] [id number], [place] [id number] May, Lumbago with sciatica, left side M54.42 ; Insomnia, unspecified type G47.00 and RLS (restless legs syndrome) G25.81 [facility] [address] [id number] [place] [id number] Apr, Muscle spasms of both lower extremities M62.838 ; Constipation, unspecified constipation type K59.00 and Insomnia, unspecified type G47.00 [facility] [address] [id number], [place] [id number] Apr, [facility] [id number] [place] [address] [id number] Apr, Anxiety F41.9 and Lumbago with sciatica, left side M54.42 [facility] [address] [id number], [place] [id number] Mar, Encounter for dental examination and cleaning without abnormal findings Z01.20 [facility] [address] [id number], [place] [id number] Mar, Muscle cramp, nocturnal R25.2 [facility] [id number] [place] [address] [id number] 14 Mar, 2016 RLS (restless legs syndrome) G25.81 ; Anxiety F41.9 ; Lumbago with sciatica, left side M54.42 ; Insomnia, unspecified type G47.00 and Muscle cramps R25.2 [facility] [place] [id number] [place] [address]36- [address]13 Mar, [facility] [id number] [place] [address] [id number] Feb, [facility] [id number] [place] [address] [id number] Feb, [facility] [address] [id number] [place] [address] [id number] Jan, [facility] [address] [id number] [place] [address] [id number] Jan, Moderate persistent asthma without complication J45.40 [facility] [address] [id number] [place] [address] [id number] Jan, [facility] [address] [id number] [place] [address] [id number] Jan, [facility] [address] [id number] [place] [address] [id number] Jan, [facility] [address] [id number] [place] [address] [id number] Jan, [facility] [address] [id number] [place] [address] [id number] Dec, [facility] [place] [address] [phone] Dec, [facility] [address] [id number], [place] [id number] Nov, [facility] [address] [id number], [place] [id number] Nov, [facility] [address] [id number], [place] [id number] Nov, Dental examination Z01.20 [facility] [address] [id number], [place] [id number] Nov, Bipolar depression F31.30 [facility] [address] [id number], [place] [id number] Nov, Lumbago with sciatica, left side M54.42 ; Allergic rhinitis, unspecified allergic rhinitis type J30.9 ; Bipolar depression F31.30 ; Moderate persistent asthma without complication J45.40 ; Encounter for immunization Z23 ; Abdominal spasms R10.9 and Benign essential hypertension I10 [facility] [address] [id number], [place] [id number] Nov, [facility] [address] [id number], [place] [id number] Oct, [facility] [address] [id number], [place] [id number] Oct, [facility] [address] [id number], [place] [id number] Sep, [facility] [address] [id number], [place] [id number] Sep, [facility] [address] [id number], [place] [id number] Sep, [facility] [address] [id number] [place] [address] Sep [facility] [address] [id number], [place] [id number] Aug, [facility] [address] [id number], [place] [id number] Aug, Dental examination Z01.20 [facility] [address] [id number], [place] [id number] Aug, [facility] [id number], [place] [id number] Aug, [facility] [id number] [place] [address] [id number] Jul, Allergic rhinitis, unspecified allergic rhinitis type J30.9 ; RLS ( restless legs syndrome) G25.81 ; Lumbago with sciatica, left side M54.42 and Other chronic pain G89.29 [facility] [id number] [place] [address] [id number] Jul, Allergic rhinitis, unspecified allergic rhinitis type J30.9 and RLS ( restless legs syndrome) G25.81 [facility] [id number] [place] [address] [id number] Jul, [facility] [id number] [place] [address] [id number] June, Hypo-osmolality and hyponatremia E87.1 and Benign essential hypertension I10 [facility] [id number] [place] [address] [id number] June, [address] [place] [id number] [place] [address] [id number] June, Moderate persistent asthma without complication J45.40 ; RLS (restless legs syndrome) G25.81 ; Benign essential hypertension I10 ; Anxiety F41.9 and Constipation, unspecified constipation type K59.00 [facility] [id number], [place] [id number] June, Encounter for dental examination and cleaning without abnormal findings Z01.[address] [id number], [place] [id number] June, [facility] [id number], [place] [id number] June, [facility] [id number] [place] [address] [id number] June, [facility] [id number] [place] [address] [id number] May, [address] [id number] [place] [address] [id number] May, [facility] [address] [id number], [place] [id number] May, [facility] [address] [id number] [place] [address] [id number] May, [facility] [address] [id number], [place] [id number] Apr, [facility] [id number] [place] [address] [id number] Apr, Anxiety F41.9 [facility] [address] [id number] [place] [address] [id number] Apr, [facility] [address] [id number] [place] [address] [id number] Mar, [facility] [address] [id number] [place] [address] [id number] Mar, [facility] [address] [id number] [place] [address] [id number] Mar, [facility] [address] [id number] [place] [address] [id number] Mar, RLS (restless legs syndrome) G25.81 ; Anxiety F41.9 and Moderate persistent asthma without complication J45.40 [facility] [address] [id number] [place] [address] [id number] Mar, [facility] [address] [id number], [place] [id number] Mar, [facility] [address] [id number], [place] [id number] Feb, [facility] [address] [id number], [place] [id number] Feb, [facility] [address] [id number], [place] [id number] Feb, [facility] [place] [address]00565100[place], [place] [id number] Feb, Encounter for dental examination Z01.20 [facility] [address] [id number], [place] [id number] Feb, [facility] [address] [id number] [place] [address] [id number] Jan, [facility] [address] [id number], [place] [id number] Jan, Benign essential hypertension I10 [facility] [id number], [place] [id number] Jan, RLS (restless legs syndrome) G25.81 and Gastroesophageal reflux disease, esophagitis presence not specified K21.9 [facility] [id number] [place] [address] [id number] Jan, [facility] [id number] [place] [address] [id number] Jan, [facility] [id number] [place] [address] [id number] Dec, Anxiety F41.9 ; Benign essential hypertension I10 and RLS (restless legs syndrome) G25.81 [facility] [id number], [place] [id number] Dec, RLS (restless legs syndrome) G25.81 ; Esophageal reflux 530.81 and Anxiety F41.9 [facility] [address] [id number], [place] [id number] Dec, [facility] [id number] [place] [address] [id number] Nov, Anxiety F41.9 [facility] [place] [id number], [place] [id number] Nov, Encounter for immunization Z23 ; Anxiety F41.9 ; Benign essential hypertension I10 ; RLS (restless legs syndrome) G25.81 and Rhinitis J31.0 [facility] [place] [address] [facility] [id number], [place] [phone]- 4718 Nov, [facility] [id number], [place] [id number] Nov, [facility] [address] [id number], [place] [id number] Nov, [facility] [address] [id number], [place] [id number] Nov, [address] [id number] [place] [id number] Nov, [facility] [id number], [place] [id number] Oct, [facility] [place] [address] [facility] [id number] [place] [id number] Oct, [facility] [id number], [place] [id number] Oct, [facility] [id number], [place] [id number] Oct, Asthma, unspecified, unspecified status 493.90 ; Esophageal reflux 530.81 and Essential hypertension, benign 401.1 [facility] [address] [id number], [place] [id number] Oct, [facility] [id number], [place] [id number] Oct, [facility] [address] [id number], [place] [id number] Oct, [facility] [address] [id number], [place] [id number] Sep, [facility] [id number] [place] [address] [id number] Sep, Esophageal reflux 530.81 ; Insomnia 780.52 and Essential hypertension, benign 401.1 [facility] [id number], [place] [id number] Sep, [facility] [address] [id number], [place] [id number] Sep, [facility] [address] [id number], [place] [id number] Sep, [facility] [address] [id number], [place] [id number] Sep, [facility] [address] [id number], [place] [id number] Sep, [facility] [address] [id number], [place] [id number] Sep, [facility] [address] [id number] [place] [address] [id number] Sep, [facility] [address] [id number], [place] [id number] Sep, Essential hypertension, benign 401.1 ; Hyponatremia 276.1 and 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 [facility] [address] [id number], [place] [id number] Sep, [facility] [address] [id number], [place] [id number] Aug, [facility] [id number] [place] [address] [id number] Aug, [facility] [id number] [place] [address] [id number] Jul, [facility] [address] [id number] [place] [address] [id number] Jul, [facility] [id number] [place] [address] [id number] Jul, [facility] [address] [id number] [place] [address] [id number] Jul, [facility] [address] [id number], [place] [id number] Jul, [facility] [id number] [place] [address] [id number] Jul, Insomnia 780.52 [facility] [id number][place] [id number] June, Muscle stiffness 728.9 and Insomnia 780.52 [facility] [address] [id number][place] [id number] June, [facility] [address] [id number][place] [id number] June, [facility] [address] [id number][place] [id number] June, [facility] [address] [id number][place] [id number] June, [facility] [address] [id number][place] [id number] May, [facility] [address] [id number] [address] 14 May, 2014 [facility] [address] [facility] [id number], [place] [address] May, [facility] [address] [facility] [id number][place] [id number] Apr, [facility] [address] [id number], [place] [address] Apr, [facility] [address] [facility] [id number][place] [id number] Apr, [facility] [address] [facility] [id number], [place] [address] Apr, [facility] [address] [id number], [place] [address] Apr, [facility] [id number], [place] [address] Apr, [facility] [address] [id number], [place] [id number] Apr, [facility] [address] [id number], [place] [address] Apr, [facility] [address] [facility] [id number], [place] [id number] Mar, [facility] [address] [id number], [place] [address] Mar, [facility] [address] [id number], [place] [id number] Mar, 2014 [facility] [address] [facility] [id number], [place] [address] Mar, [facility] [address] [facility] [id number], [place] [id number] Mar, [facility] [address] [facility] [id number], [place] [address] Mar, [facility] [address] [id number], [place] [address] Mar, [facility] [address] [id number] [place] [id number] Feb, [facility] [address] [facility] [id number], [place] [address] Feb, [facility] [address] [id number] [place] [id number] Feb, [facility] [address] [id number] [place] [id number] Feb, [facility] [address] [id number] [place] [id number] Feb, [facility] [place] [facility] [address] [facility] [id number] [place] [address] Feb, [facility] [place] [facility] [address] [facility] [id number] [place] [address] Feb, [facility] [place] [facility] [id number], [place] [address] Feb, [facility] [address] [facility] [id number][place] [id number] Feb, [facility] [place] [facility] [address] [facility] [id number], [place] [address] Feb, [facility] [address] [facility] [id number][place] [id number] Feb, [facility] [place] [facility] [address] [id number] [address] Feb, [facility] [place] [facility] [address] [facility] [id number], [place] [address] Jan, [facility] [address] [facility] [id number] [place] [id number] Jan, [facility] [place] [facility] [address] [facility] [id number], [place] [address] Jan, [facility] [address] [facility] [id number][place] [id number] Jan, [facility] [place] [facility] [address] [id number], [place] [address] Jan, [facility] [address] [facility] [id number] [place] [id number] Jan, [facility] [place] [id number], [place] [address] Jan, [facility] [place] [address] [id number], [place] [address] Jan, [facility] [address] [facility] [id number][place] [id number] Jan, [facility] [place] [address] [id number], [place] [address] Jan, [facility] [place] [address] [id number], [place] [address] June, IMMUNIZATIONS No Known Immunizations SOCIAL HISTORY [...] Surgical History Esophagus stretched 2017 Hospitalization History [facility] for hyponatremia, change in mental status, angioedema 09/2014
--- OUTSIDE RECORDS SUMMARY | 2017-08-27 16:35 | XMS REPORT ---
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 Name Role Phone AIMEE LING Unavailable PROBLEMS Type Condition ICD9-CM Code [id number] Code Onset Dates Condition Status SNOMED Code Problem Allergic rhinitis, unspecified allergic rhinitis type J30.9 Active 01523450 Problem Bipolar depression F31.30 Active 76379760 Problem Lumbago with sciatica, left side M54.42 Active 902214387 Problem Other chronic pain G89.29 Active 71018186 Problem Overactive bladder N32.81 Active 889966704 Problem Insomnia, unspecified type G47.00 Active 675058823 Problem Abdominal spasms R10.9 Active 87883602 Problem Other specified hypothyroidism E03.8 Active 07559873 Problem Muscle spasms of both lower extremities M62.838 Active 019787717 Problem 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 76737576 Problem Hyponatremia 276.1 Active 41903399 Problem Insomnia 780.52 Active 421401270 Problem Anxiety F41.9 Active 54661565 Problem Gastroesophageal reflux disease, esophagitis presence not specified K21.9 Active 140552280 Problem RLS (restless legs syndrome) G25.81 Active 77809120 Problem Moderate persistent asthma without complication J45.40 Active 307128399 Problem Benign essential hypertension I10 Active 5829507 Problem Constipation, unspecified constipation type K59.00 Active 38501608 ALLERGIES Substance Reaction Event Type Date Status Lyrica hives Drug Allergy Dec, Active Advair Diskus facial swelling Drug Allergy Dec, Active ENCOUNTERS Encounter Location Date Diagnosis [facility] [address] [id number] [place] [id number] Aug, [facility] [address] [id number] [place] [id number] Aug, [facility] [id number], [place] [id number] Jul, [facility] [id number], [place] [address] Jul, Back spasm M62.830 [facility] [place] [id number], [place] [id number] Jul, Back spasm M62.830 and Anxiety F41.9 [facility] [place] [address] [id number], [place] [id number] June, Insomnia, unspecified type G47.00 ; Overactive bladder N32.81 and Back spasm M62.830 [facility] [place] [id number], [place] [id number] June, Anxiety F41.9 and Lumbago with sciatica, left side M54.42 [facility] [place] [id number], [place] [id number] May, Anxiety F41.9 and Lumbago with sciatica, left side M54.42 [facility] [address] [id number], [place] [id number] Apr, Dental examination Z01.20 [facility] [address] [id number], [place] [id number] Apr, [facility] [place] [address] [place] [id number], [place] [id number] Apr, RLS (restless legs syndrome) G25.81 ; Lumbago with sciatica, left side M54.42 and Anxiety F41.9 [facility] [place] [id number], [place] [id number] Mar, [facility] [place] [address] [place] [id number], [place] 526[address]35 Mar, Insomnia, unspecified type G47.00 [facility] [place] [id number], [place] [address]08[address] Mar, Insomnia, unspecified type G47.00 and RLS (restless legs syndrome) G25.81 [facility] [address] [id number], [place] [id number] Mar, [facility] [place] [address] [facility] [id number][place] [id number] Mar, Dental examination Z01.20 [facility] [address]00565100[place], [place] [address] Mar, [facility] [id number], [place] [id number] Mar, Lumbago with sciatica, left side M54.42 and Anxiety F41.9 [facility] [address] [facility] [id number], [place] [address]5936420[address] Mar, [facility] [id number] [place] [address] [id number] Mar, Insomnia, unspecified type G47.00 [facility] [id number], [place] [id number] Mar, [facility] [place] [address] [place] [id number] [place] [address] [id number] Feb, Insomnia, unspecified type G47.00 [facility] [place] [id number], [place] 38[address] Feb, Lumbago with sciatica, left side M54.42 and Anxiety F41.9 [facility] [id number], [place] [id number] Feb, [facility] [place] [id number], [place] [id number] Feb, RLS (restless legs syndrome) G25.81 ; Lumbago with sciatica, left side M54.42 ; Overactive bladder N32.81 and Anxiety F41.9 [facility] [id number], [place] 5[address]683240 Jan, Overactive bladder N32.81 and Moderate persistent asthma without complication J45.40 [facility] [place] [id number], [place] 680690171 Jan, Lumbago with sciatica, left side M54.42 and Insomnia, unspecified type G47.00 [facility] [address] [place] [id number], [place] 80[address]15247 Jan, RLS (restless legs syndrome) G25.81 [facility] [id number] [place] [address] [id number] Dec, Overactive bladder N32.81 and Other chronic pain G89.29 [facility] [id number], [place] [id number] Dec, Lumbago with sciatica, left side M54.42 ; Insomnia, unspecified type G47.00 and RLS (restless legs syndrome) G25.81 [facility] [id number], [place] 743868485 Nov, Overactive bladder N32.81 [facility] [id number] [place] [address] [id number] Nov, [facility] [id number] [place] [address] [id number] Nov, Lumbago with sciatica, left side M54.42 ; Insomnia, unspecified type G47.00 and RLS (restless legs syndrome) G25.81 [facility] [address] W [facility] [id number], [place] 426785403 Nov, Constipation, unspecified constipation type K59.00 ; Lumbago with sciatica , left side M54.42 ; Insomnia, unspecified type G47.00 ; Bloating R14.0 and Encounter for immunization Z23 [address] [id number], [place] 495965910 Oct, Dental examination Z01.20 [facility] [address] [facility] [id number], [place] [id number] Oct, RLS (restless legs syndrome) G25.81 ; Lumbago with sciatica, left side M54.42 and Insomnia, unspecified type G47.00 [facility] [address] [facility] [id number], [place] 444243625 Sep, Moderate persistent asthma without complication J45.[address] [id number], [place] [id number] Sep, Dental examination Z01.20 [facility] [address] [id number], [place] 990268979 Sep, Lumbago with sciatica, left side M54.42 and Insomnia, unspecified type G47.00 [facility] [address] [id number], [place] [id number] Sep, RLS (restless legs syndrome) G25.81 [facility] [address]00565100[place], [place] [address]13[address] Aug, [facility] [address] [id number], [place] [id number] Aug, [facility] [address] [place] [address] [id number] [place] [address] Aug Insomnia, unspecified type G47.[address] [facility] [address] [id number], [place] 828189210 Aug, Dental examination Z01.20 [facility] [address] [id number], [place] 886887529 Aug, Vaginal discharge N89.8 [facility] [id number], [place] [id number] Aug, RLS (restless legs syndrome) G25.[address] [facility] [address] [id number], [place] [id number] Aug, Dental examination Z01.[address] [facility] [address] [id number], [place] [id number] Jul, Dental examination Z01.20 [facility] [address] [id number], [place] 549378600 Jul, Lumbago with sciatica, left side M54.42 ; RLS (restless legs syndrome) G25.81 ; Moderate persistent asthma without complication J45.40 and Other specified hypothyroidism E03.8 [facility] [address] [id number], [place] 428736506 Jul, Insomnia, unspecified type G47.00 and Lumbago with sciatica, left side M54.[address] [facility] [address] [id number], [place] [id number] 05 Jul, 2016 Dental examination Z01.[address] [id number], [place] 249103735 May, Dental examination Z01.20 and Dental caries K02.9 [facility] [place] [address]00565100[place], [place] [id number] May, [facility] [place] [id number] [place] [address] [id number] May, RLS (restless legs syndrome) G25.81 [facility] [address]00565100[place], [place] [id number] May, Lumbago with sciatica, left side M54.42 ; Insomnia, unspecified type G47.00 and RLS (restless legs syndrome) G25.81 [facility] [address]00565100[place], [place] 514200465 Apr, Muscle spasms of both lower extremities M62.838 ; Constipation, unspecified constipation type K59.00 and Insomnia, unspecified type G47.00 [facility] [address]00565100[place], [place] 542529246 Apr, [place] [id number] [place] [address] [id number] Apr, Anxiety F41.9 and Lumbago with sciatica, left side M54.42 [facility] [address] [id number], [place] 819887337 Mar, Encounter for dental examination and cleaning without abnormal findings Z01.20 [facility] [place] [address] [place] [id number], [place] 712406224 Mar, Muscle cramp, nocturnal R25.2 [facility] [place] [id number] [place] [address] [id number] 14 Mar, 2016 RLS (restless legs syndrome) G25.81 ; Anxiety F41.9 ; Lumbago with sciatica, left side M54.42 ; Insomnia, unspecified type G47.00 and Muscle cramps R25.2 [facility] [address]00565100[place], [place] [address] Mar, [facility] [place] [address] [id number], [place] [id number] Feb, [facility] [place] [id number] [place] [address] [id number] Feb, [facility] [place] [address] [id number], [place] [id number] Jan, [facility] [place] [address] [id number] [place] [id number] Jan, Moderate persistent asthma without complication J45.40 [facility] [place] [address] [id number] [place] [id number] Jan, [facility] [place] [address] [id number], [place] [id number] Jan, [facility] [place] [address] [id number], [place] [id number] Jan, [facility] [address] [id number], [place] [id number] Jan, [facility] [address] [id number], [place] [id number] Dec, [facility] [address] [facility] [id number], [place] [address] Dec, [facility] [address] [id number], [place] [id number] Nov, [facility] [place] [id number], [place] 654459627 Nov, [facility] [address] [id number], [place] 647925969 Nov, Dental examination Z01.20 [facility] [place] [address] [id number], [place] 328974363 Nov, Bipolar depression F31.30 [facility] [place] [address] [id number], [place] 267823599 Nov, Lumbago with sciatica, left side M54.42 ; Allergic rhinitis, unspecified allergic rhinitis type J30.9 ; Bipolar depression F31.30 ; Moderate persistent asthma without complication J45.40 ; Encounter for immunization Z23 ; Abdominal spasms R10.9 and Benign essential hypertension I10 [facility] [address] [id number], [place] [id number] Nov, [facility] [address] [id number], [place] [id number] Oct, [facility] [address] [id number], [place] [id number] Oct, [facility] [address] [id number], [place] 088006130 Sep, [facility] [address] [id number], [place] 709377801 Sep, [facility] [address] [id number], [place] [id number] Sep, [facility] [id number] [place] [address] Sep [facility] [place] [address] [id number], [place] [id number] Aug, [facility] [address] [id number], [place] [id number] Aug, Dental examination Z01.20 [facility] [place] [address] [id number], [place] 757504585 Aug, [place] [address] [facility] [id number], [place] 617042515 Aug, [facility] [place] [address] [id number], [place] [id number] Jul, Allergic rhinitis, unspecified allergic rhinitis type J30.9 ; RLS ( restless legs syndrome) G25.81 ; Lumbago with sciatica, left side M54.42 and Other chronic pain G89.29 [facility] [place] [address] [id number], [place] [id number] Jul, Allergic rhinitis, unspecified allergic rhinitis type J30.9 and RLS ( restless legs syndrome) G25.81 [facility] [address] [id number], [place] [id number] Jul, [facility] [id number] [place] [address] [id number] June, Hypo-osmolality and hyponatremia E87.1 and Benign essential hypertension I10 [facility] [place] [address] [place] [id number] [place] [address] [id number] June, [facility] [place] [address] [id number] June, Moderate persistent asthma without complication J45.40 ; RLS (restless legs syndrome) G25.81 ; Benign essential hypertension I10 ; Anxiety F41.9 and Constipation, unspecified constipation type K59.00 [facility] [place] [address] [place] [place] [id number] [place] [address] [id number] June, Encounter for dental examination and cleaning without abnormal findings Z01.20 [facility] [place] [address] [place] [address] [id number] June, [facility] [place] [address] [place] [id number] [place] [address] [id number] June, [facility] [address] [id number] [place] [address] [id number] June, [facility] [address] [place] [id number] [place] [address] [id number] May, [facility] [address] [place] [address] [id number] May, [facility] [address] [id number] [place] [address] [id number] May, [facility] [address] [id number] [place] [address] [id number] May, [facility] [address] [id number] [place] [address] [id number] Apr, [facility] [id number] [place] [address] [id number] Apr, Anxiety F41.9 [facility] [place] [id number] [place] [address] [id number] Apr, [facility] [id number] [place] [address] [id number] Mar, [facility] [address] [id number] [place] [address] [id number] Mar, [facility] [address] [id number], [place] [id number] Mar, [facility] [address] [place] [id number] [place] [address] [id number] Mar, RLS (restless legs syndrome) G25.81 ; Anxiety F41.9 and Moderate persistent asthma without complication J45.40 [facility] [address] [id number] [place] [address] [id number] Mar, [facility] [address] [id number] [place] [address] [id number] Mar, [facility] [id number] [place] [address] [id number] Feb, [facility] [address] [place] [id number] [place] [address] [id number] Feb, [facility] [address] [place] [id number] [place] [address] [id number] Feb, [address]00565100[place], [place] [id number] Feb, Encounter for dental examination Z01.20 [facility] [id number] [place] [address] [id number] Feb, [facility] [address] [place] [id number] [place] [address] [id number] Jan, [facility] [id number] [place] [address] [id number] Jan, Benign essential hypertension I10 [facility] [address] [place] [id number] [place] [address] [id number] Jan, RLS (restless legs syndrome) G25.81 and Gastroesophageal reflux disease, esophagitis presence not specified K21.9 [facility] [id number] [place] [address] [id number] Jan, [facility] [address] [place] [id number] [place] [address] [id number] Jan, [facility] [address] [place] [id number] [place] [address] [id number] Dec, Anxiety F41.9 ; Benign essential hypertension I10 and RLS (restless legs syndrome) G25.81 [facility] [place] [address] [place] [id number], [place] [id number] Dec, RLS (restless legs syndrome) G25.81 ; Esophageal reflux 530.81 and Anxiety F41.9 [facility] [address] [id number], [place] [id number] Dec, [facility] [place] [address] [place] [id number], [place] [id number] Nov, Anxiety F41.9 [facility] [place] [address] [place] [address] [id number] Nov, Anxiety F41.9 ; Encounter for immunization Z23 ; Benign essential hypertension I10 ; RLS (restless legs syndrome) G25.81 and Rhinitis J31.0 [facility] [address]00565100[place], [place] [address] Nov, [facility] [place] [address]00565100[place], [place] [id number] Nov, [facility] [place] [address] [facility] [id number], [place] [id number] Nov, [facility] [address]00565100[place], [place] [id number] Nov, [address]00565100[place], [place] [id number] Nov, [facility] [place] [address] [facility] [id number], [place] [id number] Oct, [place] [id number] [id number] Oct, [facility] [address]00565100[place], [place] [id number] Oct, [facility] [id number] [place] [address] [id number] Oct, Esophageal reflux 530.81 ; Asthma, unspecified, unspecified status 493.90 and Essential hypertension, benign 401.1 [facility] [id number] [place] [address] [id number] Oct, [facility] [place] [address] [id number] [place] [id number] Oct, [facility] [address] [id number] [place] [id number] Oct, [facility] [address] [id number] [place] [id number] Sep, [facility] [address] [id number] [place] [id number] Sep, Esophageal reflux 530.81 ; Insomnia 780.52 and Essential hypertension, benign 401.1 [facility] [address] [id number] [place] [id number] Sep, [facility] [address] [id number] [place] [id number] Sep, [facility] [address] [id number] [place] [id number] Sep, [facility] [address] [id number] [place] [id number] Sep, [facility] [address] [id number] [place] [id number] Sep, [facility] [address] [id number] [place] [id number] Sep, [facility] [address] [id number] [place] [id number] Sep, [facility] [address] [id number] [place] [id number] Sep, Essential hypertension, benign 401.1 ; Hyponatremia 276.1 and 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 [facility] [address] [id number] [place] [id number] Sep, [facility] [address] [id number] [place] [id number] Aug, [facility] [address] [id number] [place] [id number] Aug, [facility] [address] [id number] [place] [id number] Jul, [facility] [address] [id number] [place] [id number] Jul, [facility] [address] [id number], [place] [id number] Jul, [facility] [address] [id number], [place] [id number] Jul, [facility] [address] [id number], [place] [id number] Jul, [facility] [address] [place] [id number], [place] 779128619 Jul, Insomnia 780.52 [facility] [address] [id number], [place] [id number] June, Muscle stiffness 728.9 and Insomnia 780.52 [facility] [address] [id number][place] [id number] June, [facility] [address] [id number][place] [id number] June, [facility] [id number], [place] [id number] June, [facility] [id number][place] [id number] June, [facility] [address] [id number][place] [id number] May, [facility] [id number] [place] [address] May, [facility] [id number], [place] [address] May, [facility] [address] [id number][place] [id number] Apr, [facility] [id number] [place] [address] Apr, [facility] [id number], [place] [id number] Apr, [facility] [address] [id number], [place] [address] Apr, [facility] [id number] [place] [address] Apr, [facility] [address] [facility] [id number], [place] [address] Apr, [facility] [address] [facility] [id number] [place] [id number] Apr, [facility] [address] [facility] [id number], [place] [address] Apr, [facility] [address] [facility] [id number] [place] [id number] Mar, [facility] [address] [facility] [id number], [place] [address] Mar, [facility] [address] [facility] [id number] [place] [id number] Mar, [facility] [id number], [place] [address] Mar, [facility] [id number], [place] [id number] Mar, [facility] [id number], [place] [address] Mar, [facility] [id number], [place] [address] Mar, [facility] [id number], [place] [id number] Feb, [facility] [address] [facility] [id number], [place] [address] Feb, [facility] [address] [facility] [id number], [place] [id number] Feb, [facility] [address] [facility] [id number] [place] [id number] Feb, [facility] [address] [facility] [id number][place] [id number] Feb, [facility] [id number] [id number] Feb, [facility] [id number] [id number] Feb, [facility] [address] [address] [facility] [id number] [address] Feb, [facility] [place] [facility] [address] [facility] [id number][place] [id number] Feb, [facility] [address] [facility] [id number], [place] [address] Feb, [facility] [address] [facility] [id number][place] [id number] Feb, [facility] [address] [facility] [id number], [place] [address] Feb, [facility] [address] [facility] [id number], [place] [address] Jan, [facility] [place] [address] [facility] [id number][place] [id number] Jan, [facility] [id number], [place] [address] Jan, [facility] [place] [address] [facility] [id number][place] [id number] Jan, [facility] [id number], [place] [address] Jan, [facility] [place] [address] [facility] [id number][place] [id number] Jan, [facility] [id number], [place] [address] Jan, [facility] [address] [facility] [id number], [place] [address] Jan, [facility] [place] [address] [facility] [id number][place] [id number] Jan, [facility] [address] [facility] [id number], [place] [address] Jan, [facility] [address] [facility] [id number], [place] [address] June, IMMUNIZATIONS No Known Immunizations SOCIAL HISTORY Never Assessed REASON FOR VISIT Overactive Bladder/UTI Symptoms Renetta ABURTO, Needs [employer] and Narcotic contract PLAN OF CARE Activity Details Follow Up 4 Weeks Reason:over active bladder VITAL SIGNS Height 63 in 2017-01-08 Weight 171 lbs 2017-01-08 Temperature 96.7 degrees Fahrenheit 2017-01-08 Heart Rate 70 bpm 2017-01-08 Respiratory Rate 16 2017-01-08 BMI 30.29 kg/m2 2017-01-08 Blood pressure systolic 124 mmHg 2017-01-08 Blood pressure diastolic 68 mmHg 2017-01-08 MEDICATIONS Medication Instructions Dosage Frequency Start Date End Date Duration Status Singulair 10 MG Orally Once a day 1 tablet in the evening 24h Active Premarin 0.9 MG TAKE ONE (1) TABLET BY MOUTH ONCE DAILY. 90 Active Gabapentin 300 MG TAKE (1) TABLET BY MOUTH IN THE MORNING AND (1) TABLET IN THE AFTERNOON. Active ProAir HFA 108 (90 Base) MCG/ACT Inhalation 4 times a day as needed 2 puffs 0 days Active Prilosec 40 mg Orally Once a day 1 capsule 24h Nov, Active Symbicort 80-4.5 MCG/ACT Inhalation Twice a day 2 puffs 12h Active Lamictal 100 MG TAKE ONE (1) TABLET BY MOUTH DAILY... Active Flonase 50 MCG/ACT Nasally 2 times a day 1 spray in each nostril 12h Active Clonazepam 0.5 MG Orally Once a day at HS, PRN for RLS. Must last one month 1.5 tablet Jul, 0 days Active Imdur 30 MG Orally Once a day 1 tablet 24h Sep, Active Tramadol HCl 50 mg Orally 2 times a day must last 1 month 1 tablet Active HydrOXYzine HCl 25 MG TAKE (1) TABLET BY MOUTH 3 TIMES DAILY. Active Milk of Magnesia 400 MG/5ML Orally at bedtime 5 ml as needed Nov, Active Activated Charcoal 260 MG Orally Once a day 2 capsule after meals 24h Nov, Active Patanol 0.1 % Ophthalmic Twice a day 1 drop into affected eye 12h Jul, Active Zyprexa 20 MG TAKE ONE (1) TABLET BY MOUTH DAILY... Active Zyrtec Allergy 10 mg Orally Once a day 1 tablet as needed 24h 90 Active Gabapentin 800 MG Orally Once a day 1 tablet 24h Active Oxybutynin Chloride 5 mg Orally Twice a day .5 tab am 1tablet pm 12h 30 Nov, 2016 Active Hydrochlorothiazide 25 MG Orally Once a day 1 tablet 24h Active Levothyroxine Sodium 50 MCG TAKE ONE (1) TABLET BY MOUTH DAILY... Active Dicyclomine HCl 10 mg Orally 3 times a day before meals 1 tablet Nov, Active Zolpidem Tartrate 10 mg Orally Once a day must last 1 m 1 tablet at bedtime as needed Active RESULTS Name Result Date Reference Range URINE DRUG SCREEN (IN HOUSE) 2017-01-08 Lot # [id number] Exp date 12/2017 Control + COCAINE neg AMPH neg MTD neg THC neg OPIATE neg BENZO neg PCP neg BAR neg OXY neg MAMP neg TCA neg BUP neg MDMA neg PROCEDURES Procedure Date Ordered Result Body Site DRUG TEST PRSMV DIR OPT OBS Jan 08, 2017 INSTRUCTIONS MEDICATIONS ADMINISTERED No Known Medications MEDICAL [...] Surgical History Esophagus stretched 2017 Hospitalization History [facility] for hyponatremia, change in mental status, angioedema 09/2014
--- OUTSIDE RECORDS SUMMARY | 2017-08-27 16:36 | XMS REPORT ---
Author Author AIMEE LING Organization [employer] Address Unknown Phone Unavailable Care Team Providers Care Supervisor [employer] Name Role Phone AIMEE LING CP Unavailable [...] Start Date End Date Status Dosage Gabapentin [facility] [address]-78 300 MG Orally 1 tab in am and 1 tab midday, 3 tabs at hs Mar 04, 2014 1-3 Tablet Lamictal [facility] [address]-29 100 MG Orally Once a day Sep 24, 2014 1 tablet Results No Known Results Summary Purpose [employer] Submission
--- OUTSIDE RECORDS SUMMARY | 2017-08-27 16:36 | XMS REPORT ---
Author Author LEYDA TOLENTINO [facility] Address [address] [place] [address] Care Team Providers Care Grader Marker Name Role Phone TOLENTINO LEYDA Unavailable PROBLEMS Type Condition ICD9-CM Code JOP34-VS Code Onset Dates Condition Status SNOMED Code Problem Allergic rhinitis, unspecified allergic rhinitis type J30.9 Active 86912892 Problem Bipolar depression F31.30 Active 09421256 Problem Lumbago with sciatica, left side M54.42 Active 144979328 Problem Other chronic pain G89.29 Active 00710648 Problem Overactive bladder N32.81 Active 501559949 Problem Insomnia, unspecified type G47.00 Active 213608713 Problem Abdominal spasms R10.9 Active 83145375 Problem Other specified hypothyroidism E03.8 Active 71828470 Problem Muscle spasms of both lower extremities M62.838 Active 817878378 Problem 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 97549479 Problem Hyponatremia 276.1 Active 50499211 Problem Insomnia 780.52 Active 885349629 Problem Anxiety F41.9 Active 46754127 Problem Gastroesophageal reflux disease, esophagitis presence not specified K21.9 Active 783256674 Problem RLS (restless legs syndrome) G25.81 Active 65579980 Problem Moderate persistent asthma without complication J45.40 Active 832555673 Problem Benign essential hypertension I10 Active 2657319 Problem Constipation, unspecified constipation type K59.00 Active 34344206 ALLERGIES No Information ENCOUNTERS Encounter Location Date Diagnosis [facility] [address] [facility] [id number] [place] [id number] June, [facility] [address] [id number][place] [id number] May, Anxiety F41.9 and Lumbago with sciatica, left side M54.42 [facility] [address] [facility] [id number] SPR[place] [id number] Apr, Dental examination Z01.20 [facility] [address] [facility] [address] [id number] SPRINGS[place] [id number] Apr, [facility] [id number], [place] [id number] Apr, RLS (restless legs syndrome) G25.81 ; Lumbago with sciatica, left side M54.42 and Anxiety F41.9 [facility] [address] [id number] [place] [address] [id number] Mar, [facility] [id number] [place] [address] [id number] Mar, Insomnia, unspecified type G47.00 [facility] [id number] [place] [address] [id number] Mar, Insomnia, unspecified type G47.00 and RLS (restless legs syndrome) G25.81 [facility]on[address] [facility] [address] [id number] SPRINGS[place] [id number] Mar, [facility] Christianson[address] [place], [place] [address] [id number] SPRINGS, [place] [id number] Mar, Dental examination Z01.20 [facility] [address] [place] [address] Mar, [facility] [id number], [place] [id number] Mar, Lumbago with sciatica, left side M54.42 and Anxiety F41.9 [facility] [place] [address] [place] [address]63- 2546 Mar, [facility] [id number] [place] [address] [id number] Mar, Insomnia, unspecified type G47.00 [facility] [id number], [place] [id number] Mar, [facility] [id number] [place] [address] [id number] Feb, Insomnia, unspecified type G47.00 [facility] [address] [id number], [place] [id number] Feb, Lumbago with sciatica, left side M54.42 and Anxiety F41.9 [facility] [address] [id number] [place] [address] [id number] Feb, [facility] [address] [id number] [place] [address] [id number] Feb, RLS (restless legs syndrome) G25.81 ; Lumbago with sciatica, left side M54.42 ; Overactive bladder N32.81 and Anxiety F41.9 [facility] [id number] [place] [address] [id number] Jan, Overactive bladder N32.81 and Moderate persistent asthma without complication J45.40 [facility] [id number] [place] [address] [id number] Jan, Lumbago with sciatica, left side M54.42 and Insomnia, unspecified type G47.00 [facility] [id number] [place] [address] [id number] Jan, RLS (restless legs syndrome) G25.81 [facility] [id number] [place] [address] [id number] Dec, Overactive bladder N32.81 and Other chronic pain G89.29 [facility] [id number] [place] [address] [id number] Dec, Lumbago with sciatica, left side M54.42 ; Insomnia, unspecified type G47.00 and RLS (restless legs syndrome) G25.81 [facility] [id number], [place] [id number] Nov, Overactive bladder N32.81 [facility] [address] [id number] [place] [address] [id number] Nov, [facility] [address] [id number] [place] [address] [id number] Nov, Lumbago with sciatica, left side M54.42 ; Insomnia, unspecified type G47.00 and RLS (restless legs syndrome) G25.81 [facility] [id number], [place] [id number] Nov, Constipation, unspecified constipation type K59.00 ; Lumbago with sciatica , left side M54.42 ; Insomnia, unspecified type G47.00 ; Bloating R14.0 and Encounter for immunization Z23 [facility] [place] [address] [place] [address] AVE [id number] SPRINGS[place] [id number] Oct, Dental examination Z01.20 [facility] [id number], [place] [id number] Oct, RLS (restless legs syndrome) G25.81 ; Lumbago with sciatica, left side M54.42 and Insomnia, unspecified type G47.00 [facility] [id number], [place] [id number] Sep, Moderate persistent asthma without complication J45.40 [facility] [place] [address] [place] [address] AVE [id number] SPRINGS[place] [id number] Sep, Dental examination Z01.20 [facility] [place] [address]00565100[place], [place] [id number] Sep, Lumbago with sciatica, left side M54.42 and Insomnia, unspecified type G47.00 [facility] [address]00565100[place] 700472268 Sep, RLS (restless legs syndrome) G25.81 [facility] [place] [address] [facility] [id number], [place] 14705179- [address] Aug, [facility] [address]00565100[place] [id number] Aug, [facility] [place] [id number] [place] [address] Aug Insomnia, unspecified type G47.00 [facility] [address] [facility] [address] [id number] SPR[place] [id number] Aug, Dental examination Z01.20 [facility] [address]00565100[place], [place] [id number] Aug, Vaginal discharge N89.8 [facility] [id number], [place] 737226471 Aug, RLS (restless legs syndrome) G25.81 [facility] ARNOLDRUFFIN[address] [id number] SPRINGS[place] [id number] Aug, Dental examination Z01.20 [facility] ARNOLDRUFFIN[address] [id number] SPRINGS, [place] 135547082 Jul, Dental examination Z01.20 [facility] [id number], [place] [id number] Jul, Lumbago with sciatica, left side M54.42 ; RLS (restless legs syndrome) G25.81 ; Moderate persistent asthma without complication J45.40 and Other specified hypothyroidism E03.8 [facility] [place] [id number], [place] [id number] Jul, Insomnia, unspecified type G47.00 and Lumbago with sciatica, left side M54.42 [facility] [address] [id number] SPR[place] [id number] Jul, Dental examination Z01.20 [facility] ARNOLDRUFFIN[address]00565100[place] 314573519 May, Dental examination Z01.20 and Dental caries K02.9 [facility] [address] [facility] [id number], [place] [id number] May, [place] [id number] [place] [address] [id number] May, RLS (restless legs syndrome) G25.81 [facility] [address] [facility] [id number], [place] [id number] May, Lumbago with sciatica, left side M54.42 ; Insomnia, unspecified type G47.00 and RLS (restless legs syndrome) G25.81 [facility] [address] [facility] [id number], [place] 750855134 Apr, Muscle spasms of both lower extremities M62.838 ; Constipation, unspecified constipation type K59.00 and Insomnia, unspecified type G47.00 [facility] [id number], [place] [id number] Apr, [facility] [id number] [place] [address] [id number] Apr, Anxiety F41.9 and Lumbago with sciatica, left side M54.42 [facility] [address]00565100[place] [id number] Mar, Encounter for dental examination and cleaning without abnormal findings Z01.20 [facility] [id number], [place] 570341063 Mar, Muscle cramp, nocturnal R25.2 [facility] [id number] [place] [address] [id number] Mar, RLS (restless legs syndrome) G25.81 ; Anxiety F41.9 ; Lumbago with sciatica, left side M54.42 ; Insomnia, unspecified type G47.00 and Muscle cramps R25.2 [facility] [place] [address]00565100[place] [address] Mar, [facility] [id number] [place] [address] [id number] Feb, [facility] [id number] [place] [address] [id number] Feb, [facility] [id number] [place] [address] [id number] Jan, [facility] [id number] [place] [address] [id number] Jan, Moderate persistent asthma without complication J45.40 [facility] [id number] [place] [address] [id number] Jan, [facility] [id number] [place] [address] [id number] Jan, [facility] [id number] [place] [address] [id number] Jan, [facility] [id number] [place] [address] [id number] Jan, [facility] [address] [id number], [place] [id number] Dec, [facility] [address]00565100[place], [place] 85112749- [address] Dec, [facility] [address] [id number], [place] [id number] Nov, [facility] [address] [id number], [place] [id number] Nov, [facility] [address] [id number] SPRINGS[place] [id number] Nov, Dental examination Z01.20 [facility] [address] [id number], [place] [id number] Nov, Bipolar depression F31.30 [facility] [address] [id number], [place] 516211908 Nov, Lumbago with sciatica, left side M54.42 ; Allergic rhinitis, unspecified allergic rhinitis type J30.9 ; Bipolar depression F31.30 ; Moderate persistent asthma without complication J45.40 ; Encounter for immunization Z23 ; Abdominal spasms R10.9 and Benign essential hypertension I10 [facility] [address] [id number], [place] [id number] Nov, [facility] [address] [id number], [place] [id number] Oct, [facility] [address] [id number], [place] [id number] Oct, [facility] [address] [id number], [place] [id number] Sep, [facility] [address] [id number], [place] [id number] Sep, [facility] [address] [id number], [place] [id number] Sep, [facility] ZUNIGA [address] [place], [place] [address]E [id number] [place] [address] Sep [facility] [address] [id number], [place] [id number] Aug, [facility] [address] [id number], [place] [id number] Aug, Dental examination Z01.20 [facility] 120 [facility] [id number], [place] [id number] Aug, [facility] Christianson[address] [place] [address] [id number] SPR[place] [id number] Aug, [facility] [address] [id number], [place] [id number] Jul, Allergic rhinitis, unspecified allergic rhinitis type J30.9 ; RLS ( restless legs syndrome) G25.81 ; Lumbago with sciatica, left side M54.42 and Other chronic pain G89.29 [address] [place] [address] [id number] Jul, Allergic rhinitis, unspecified allergic rhinitis type J30.9 and RLS ( restless legs syndrome) G25.81 [address]00565100[place] [id number] Jul, [place] [id number] [place] [address] [id number] June, Hypo-osmolality and hyponatremia E87.1 and Benign essential hypertension I10 [address]00565100[place], [place] [id number] June, [address] [place] [address] [id number] June, Moderate persistent asthma without complication J45.40 ; RLS (restless legs syndrome) G25.81 ; Benign essential hypertension I10 ; Anxiety F41.9 and Constipation, unspecified constipation type K59.00 [facility] Christianson[address] [place], [place] [address]E [id number] SPRINGS, [place] [id number] June, Encounter for dental examination and cleaning without abnormal findings Z01.20 [facility] ARNOLDRUFFIN Sammy[address] [place] [address] [id number] SPR[place] [id number] June, [place] [address] [id number] [id number] June, [address]00565100[place], [place] [id number] June, [facility] [address] [id number] [place] [id number] May, [facility] [address] [id number] [place] [id number] May, [facility] [address] [id number] [place] [id number] May, [facility] [address] [id number] [place] [id number] May, [facility] [address] [id number] [place] [id number] Apr, [facility] [address] [id number] [place] [id number] Apr, Anxiety F41.9 [facility] [address] [id number] [place] [id number] Apr, [facility] [address] [id number] [place] [id number] Mar, [facility] [address] [id number] [place] [id number] Mar, [facility] [address] [id number] [place] [id number] Mar, [facility] [address] [id number] [place] [id number] Mar, RLS (restless legs syndrome) G25.81 ; Anxiety F41.9 and Moderate persistent asthma without complication J45.40 [facility] [address] [id number] [place] [id number] Mar, [facility] [address] [id number], [place] 110087653 Mar, [facility] [address] [id number] [place] [id number] Feb, [facility] [address] [id number], [place] [id number] Feb, [facility] [address] [id number], [place] [id number] Feb, [facility] [address] [id number] SPRINGS, [place] [id number] Feb, Encounter for dental examination Z01.20 [facility] [address] [id number], [place] [id number] Feb, [facility] [id number] [place] [address] [id number] Jan, [facility] [id number], [place] 190985565 Jan, Benign essential hypertension I10 [facility] [id number] [place] [address] [id number] Jan, RLS (restless legs syndrome) G25.81 and Gastroesophageal reflux disease, esophagitis presence not specified K21.9 [facility] [id number] [place] [address] [id number] Jan, [facility] [id number] [place] [address] [id number] Jan, [facility] [id number] [place] [address] [id number] Dec, Anxiety F41.9 ; Benign essential hypertension I10 and RLS (restless legs syndrome) G25.81 [facility] [id number], [place] [id number] Dec, RLS (restless legs syndrome) G25.81 ; Esophageal reflux 530.81 and Anxiety F41.9 [facility] [address] [id number] SPRINGS, [place] [id number] Dec, [facility] [id number], [place] [id number] Nov, Anxiety F41.9 [facility] [address]00565100[place], [place] [id number] Nov, Anxiety F41.9 ; Encounter for immunization Z23 ; Benign essential hypertension I10 ; RLS (restless legs syndrome) G25.81 and Rhinitis J31.0 [facility] [address] [id number], [place] 24772995- 5903 Nov, [facility] [address] [id number], [place] [id number] Nov, [facility] [address] [id number] SPR[place] [id number] Nov, [facility] [address] [facility] [id number], [place] [id number] Nov, [place] [address] [facility] [id number], [place] [id number] Nov, [facility] [address] [id number] SPR[place], [place] [id number] Oct, [facility] [address] [facility] [id number], [place] [id number] Oct, [facility] [address] [id number], [place] [id number] Oct, [facility] [id number], [place] 735204824 Oct, Esophageal reflux 530.81 ; Asthma, unspecified, unspecified status 493.90 and Essential hypertension, benign 401.1 [facility] [address] [id number], [place] [id number] Oct, [facility] [address] [id number], [place] [id number] Oct, [facility] [address] [id number] [place] [address] [id number] Oct, [facility] [address] [id number], [place] [id number] Sep, [facility] [address] [id number], [place] 826164840 Sep, Esophageal reflux 530.81 ; Insomnia 780.52 and Essential hypertension, benign 401.1 [facility] [place] [address] [id number], [place] [id number] Sep, [facility] [address] [id number], [place] [id number] Sep, [facility] [address] [id number], [place] 438421443 Sep, [facility] [address] [id number], [place] [id number] Sep, [facility] [address] [id number], [place] [id number] Sep, [facility] [address] [id number], [place] [id number] Sep, [facility] [address] [id number], [place] [id number] Sep, [facility] [address] [id number] [place] [id number] Sep, Essential hypertension, benign 401.1 ; Hyponatremia 276.1 and 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 [facility] [address] [id number], [place] [id number] Sep, [facility] [address] [id number] [place] [address] [id number] Aug, [facility] [address] [id number] [place] [address] [id number] Aug, [facility] [address] [id number] [place] [address] [id number] Jul, [facility] [address] [id number] [place] [address] [id number] Jul, [facility] [address] [id number], [place] [id number] Jul, [facility] [address] [id number], [place] [id number] Jul, [facility] [address] [id number], [place] [id number] Jul, [facility] [address] [id number], [place] [id number] Jul, Insomnia 780.52 [facility] [address] [id number], [place] [id number] June, Muscle stiffness 728.9 and Insomnia 780.52 [facility] [address] [id number], [place] [id number] June, [facility] [address] [id number], [place] [id number] June, [facility] [address] [id number] [id number] June, [facility] [address] [id number][place] [id number] June, [facility] [address] [id number] [id number] May, [facility] [place] [facility] [address] [facility] [id number] [place] [address] May, [facility] [place] [facility] [address] [facility] [id number], [place] [address] May, [facility] [address] [facility] [id number] [id number] Apr, [facility] [place] [facility] [address] [facility] [id number], [place] [address] Apr, [facility] [address] [id number] [id number] Apr, [facility] [place] [facility] [id number], [place] [address] Apr, [facility] [place] [facility] [id number], [place] [address] Apr, [facility] [place] [facility] [id number], [place] [address] Apr, [facility] [address] [facility] [id number][place] [id number] Apr, [facility] [place] [facility] [id number], [place] [address] Apr, [facility] [address] [facility] [id number][place] [id number] Mar, [facility] [place] [facility] [address] [facility] [id number], [place] [address] Mar, [facility] [address] [id number][place] [id number] Mar, [facility] [place] [facility] [address] [facility] [id number], [place] [address] Mar, [facility] [address] [facility] [id number] [id number] Mar, [facility] [place] [facility] [id number], [place] [address] Mar, [facility] [place] [facility] [address] [id number], [place] [address] Mar, [facility] [address] [facility] [id number] [place] [id number] Feb, [facility] [place] [facility] [address] [facility] [id number], [place] [address] Feb, [facility] [address] [address] [id number] [place] [id number] Feb, [facility] [address] [id number] [place] [id number] Feb, [facility] [address] [facility] [id number] [place] [id number] Feb, [facility] [address] [facility] [id number] [address] Feb, [facility] [address] [facility] [id number] [address] Feb, [facility] [address] [facility] [id number] [address] Feb, [facility] [address] [facility] [id number][place] [id number] Feb, [facility] [address] [facility] [id number][place] [address] Feb, [facility] [address] [facility] [id number][place] [id number] Feb, [facility] [address] [facility] [id number][place] [address] Feb, [facility] [address] [facility] [id number][place] [address] Jan, [facility] [address] [facility] [id number] [place] [id number] Jan, [facility] [address] [facility] [id number] [address] Jan, [facility] [address] [facility] [id number] [place] [id number] Jan, [facility] [id number] [address] Jan, [facility] [address] [id number] [id number] Jan, [facility] [id number], [place] [address] Jan, [facility] [id number], [place] [address] Jan, [facility] [id number] [id number] Jan, [facility] [id number], [place] [address] Jan, [facility] [id number], [place] [address] June, IMMUNIZATIONS No Known Immunizations SOCIAL HISTORY Never Assessed REASON FOR VISIT restorative PLAN OF CARE Activity Details Follow Up 1 Week Reason:filling #9 VITAL SIGNS MEDICATIONS Unknown Medications RESULTS No Results PROCEDURES Procedure Date Ordered Result Body Site LTD ORAL EVALUATION - PROBLEM FOCUS August 07, 2016 INTRAORL-PERIAPICAL 1 FILM [id number] August 07, 2016 INSTRUCTIONS MEDICATIONS ADMINISTERED No Known Medications [...]
--- OUTSIDE RECORDS SUMMARY | 2017-08-27 16:37 | XMS REPORT ---
Author Author AIMEE LING [facility] Address [address] [place] [address] Care Team Providers Care Spout Positioner Name Role Phone AIMEE LING Unavailable PROBLEMS Type Condition ICD9-CM Code ILY74-LY Code Onset Dates Condition Status SNOMED Code Problem Allergic rhinitis, unspecified allergic rhinitis type J30.9 Active 70888913 Problem Bipolar depression F31.30 Active 59948207 Problem Lumbago with sciatica, left side M54.42 Active 716396485 Problem Other chronic pain G89.29 Active 59163495 Problem Overactive bladder N32.81 Active 729537966 Problem Insomnia, unspecified type G47.00 Active 066747239 Problem Abdominal spasms R10.9 Active 56206573 Problem Other specified hypothyroidism E03.8 Active 67440576 Problem Muscle spasms of both lower extremities M62.838 Active 121778727 Problem 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 49785894 Problem Hyponatremia 276.1 Active 12123263 Problem Insomnia 780.52 Active 857663665 Problem Anxiety F41.9 Active 33551830 Problem Gastroesophageal reflux disease, esophagitis presence not specified K21.9 Active 238897622 Problem RLS (restless legs syndrome) G25.81 Active 22383610 Problem Moderate persistent asthma without complication J45.40 Active 693009891 Problem Benign essential hypertension I10 Active 1972882 Problem Constipation, unspecified constipation type K59.00 Active 38686590 ALLERGIES Substance Reaction Event Type Date Status Lyrica hives Drug Allergy Jul, Active Advair Diskus facial swelling Drug Allergy Jul, Active ENCOUNTERS Encounter Location Date Diagnosis [address] [id number] [place], [place] [id number] June, [facility] [place] [address] [id number] [place] [id number] Apr, Dental examination Z01.20 [facility] [address] [id number], [place] [id number] Apr, [facility] [id number] [place] [address] [id number] Apr, RLS (restless legs syndrome) G25.81 ; Lumbago with sciatica, left side M54.42 and Anxiety F41.9 [facility] [place] [id number] [place] [address] [id number] Mar, [facility] [address] [place] [id number] [place] [address] [id number] Mar, Insomnia, unspecified type G47.00 [facility] [place] [id number] [place] [address] [id number] Mar, Insomnia, unspecified type G47.00 and RLS (restless legs syndrome) G25.81 [facility] [place] [address] [facility] [address] [id number], [place] [id number] Mar, [facility] [place] [employer] [place] [address] AVE [id number], [place] [id number] Mar, Dental examination Z01.20 [facility] [id number] [place] [address]- [address] Mar, [facility] [place] [id number] [place] [address] [phone] Mar, Lumbago with sciatica, left side M54.42 and Anxiety F41.9 [facility] [id number] [place] [address] 20944- 2546 Mar, [facility] [place] [id number] [place] [address] [id number] Mar, Insomnia, unspecified type G47.00 [facility] [place] [address] [place] [id number] [place] [address] [id number] Mar, [facility] [id number] [place] [address] [id number] Feb, Insomnia, unspecified type G47.00 [facility] [place] [id number] [place] [address] [id number] Feb, Lumbago with sciatica, left side M54.42 and Anxiety F41.9 [facility] [id number] [place] [address] [id number] Feb, [facility] [id number] [place] [address] [id number] Feb, RLS (restless legs syndrome) G25.81 ; Lumbago with sciatica, left side M54.42 ; Overactive bladder N32.81 and Anxiety F41.9 [facility] [id number] [place] [address] [id number] Jan, Overactive bladder N32.81 and Moderate persistent asthma without complication J45.40 [place] [id number] [place] [address] [id number] Jan, Lumbago with sciatica, left side M54.42 and Insomnia, unspecified type G47.00 [place] [id number] [place] [address] [id number] Jan, RLS (restless legs syndrome) G25.81 [facility] [id number] [place] [address] [id number] Dec, Overactive bladder N32.81 and Other chronic pain G89.29 [place] [id number] [place] [address] [id number] Dec, Lumbago with sciatica, left side M54.42 ; Insomnia, unspecified type G47.00 and RLS (restless legs syndrome) G25.81 [facility] [id number] [place] [id number] Nov, Overactive bladder N32.81 [facility] [id number] [place] [address] [id number] Nov, [facility] [id number] [place] [address] [id number] Nov, Lumbago with sciatica, left side M54.42 ; Insomnia, unspecified type G47.00 and RLS (restless legs syndrome) G25.81 [facility] [id number] [place] [address] [id number] Nov, Constipation, unspecified constipation type K59.00 ; Lumbago with sciatica , left side M54.42 ; Insomnia, unspecified type G47.00 ; Bloating R14.0 and Encounter for immunization Z23 [facility] [place] [address] [facility] [address] [id number], [place] [phone] Oct, Dental examination Z01.20 [facility] [place] [id number] [place], [place] [address]25[address] Oct, RLS (restless legs syndrome) G25.81 ; Lumbago with sciatica, left side M54.42 and Insomnia, unspecified type G47.00 [facility] [place] [id number] [place] [address] [id number] Sep, Moderate persistent asthma without complication J45.40 [facility] [address] [id number], [place] [id number] Sep, Dental examination Z01.20 [facility] [place] [id number] [place] [address] [id number] Sep, Lumbago with sciatica, left side M54.42 and Insomnia, unspecified type G47.00 [facility] [place] [id number] [place] [address] [id number] Sep, RLS (restless legs syndrome) G25.81 [facility] [address]00565100[place] [address] Aug, [facility] [id number] [place] [address] [id number] Aug, [facility] [place] [address] [id number] [place] [address] Aug Insomnia, unspecified type G47.00 [facility] [place] [address] [place] [address] [id number], [place] [id number] Aug, Dental examination Z01.20 [facility] [place] [id number] [place], [place] [id number] Aug, Vaginal discharge N89.8 [facility] [place] [id number] [place] [address] [id number] Aug, RLS (restless legs syndrome) G25.81 [facility] [address] [facility] [address] [id number], [place] [id number] Aug, Dental examination Z01.20 [facility] [address]DRUFFIN[address] [id number], [place] [id number] Jul, Dental examination Z01.20 [facility] [place] [id number] [place] [address] Jul, Lumbago with sciatica, left side M54.42 ; RLS (restless legs syndrome) G25.81 ; Moderate persistent asthma without complication J45.40 and Other specified hypothyroidism E03.8 [facility] [place] [id number] [place] [address] [id number] Jul, Insomnia, unspecified type G47.00 and Lumbago with sciatica, left side M54.42 [facility] [address]FFIN[address] [id number], [place] [id number] Jul, Dental examination Z01.20 [facility] [address]UFFIN[address] [id number], [place] [id number] May, Dental examination Z01.20 and Dental caries K02.9 [facility] [id number] [place], [place] [id number] May, [place] [id number] [place] [address] [id number] May, RLS (restless legs syndrome) G25.81 [facility] [id number] [place], [place] [address] May, Lumbago with sciatica, left side M54.42 ; Insomnia, unspecified type G47.00 and RLS (restless legs syndrome) G25.81 [facility] [id number] [place], [place] [id number] Apr, Muscle spasms of both lower extremities M62.838 ; Constipation, unspecified constipation type K59.00 and Insomnia, unspecified type G47.00 [facility] [place] [id number] [place] [address] [id number] Apr, [facility] [place] [address] [place] [address] [id number] [place] [address] Apr, Anxiety F41.9 and Lumbago with sciatica, left side M54.42 [facility] [place] Sammy[address] [facility] [address] [id number], [place] [id number] 27 Mar, 2016 Encounter for dental examination and cleaning without abnormal findings Z01.20 [facility] [place] [id number] [place] [id number] Mar, Muscle cramp, nocturnal R25.2 [facility] [place] [id number] [place], [place] [id number] 14 Mar, 2016 RLS (restless legs syndrome) G25.81 ; Anxiety F41.9 ; Lumbago with sciatica, left side M54.42 ; Insomnia, unspecified type G47.00 and Muscle cramps R25.2 [facility] [address]00565100[place], [place] [address] Mar, [facility] [place] [id number] [place], [place] [id number] Feb, [facility] [place] [id number] [place] [address] [id number] Feb, [facility] [place] [id number] [place] [address] [id number] Jan, [facility] [place] [id number] [place], [place] [id number] Jan, Moderate persistent asthma without complication J45.40 [facility] [place] [id number] [place], [place] [id number] Jan, [facility] [place] [id number] [place], [place] 956304981 Jan, [facility] [place] [id number] [place] [address] [id number] Jan, [facility] [place] [id number] [place], [place] [id number] Jan, [facility] [id number] [place] [address] [id number] Dec, [facility] [address] [id number], [place] [address] Dec, [facility] [address] [id number] [place] [id number] Nov, [facility] [address] [id number] [place], [place] [id number] Nov, [address] [place] [address] [id number], [place] [id number] Nov, Dental examination Z01.20 [facility] [address] [id number] [place] [id number] Nov, Bipolar depression F31.30 [facility] [id number] [place] [address] [id number] Nov, Lumbago with sciatica, left side M54.42 ; Allergic rhinitis, unspecified allergic rhinitis type J30.9 ; Bipolar depression F31.30 ; Moderate persistent asthma without complication J45.40 ; Encounter for immunization Z23 ; Abdominal spasms R10.9 and Benign essential hypertension I10 [facility] [address] [id number] [place] 468607564 Nov, [facility] [address] [id number] [place], [place] [id number] Oct, [facility] [address] [id number] [place], [place] [id number] Oct, [facility] [address] [id number] [place] [id number] Sep, [facility] [address] [id number] [place], [place] [id number] Sep, [facility] [address] [id number] [place], [place] [id number] Sep, [facility] ZUNIG[facility] [address] [id number] [place] [address] Sep [facility] [id number] [place], [place] [id number] Aug, [facility] [address] [id number], [place] [id number] Aug, Dental examination Z01.20 [facility] [id number] [place], [place] [id number] Aug, [facility] [address]FFIN[address] [id number], [place] [id number] Aug, [facility] [id number] [place] [address] [id number] Jul, Allergic rhinitis, unspecified allergic rhinitis type J30.9 ; RLS ( restless legs syndrome) G25.81 ; Lumbago with sciatica, left side M54.42 and Other chronic pain G89.29 [facility] [id number] [place] 889126688 Jul, Allergic rhinitis, unspecified allergic rhinitis type J30.9 and RLS ( restless legs syndrome) G25.81 [facility] [id number] [place] [address] [id number] Jul, [place] [id number] [place] [address] [id number] June, Hypo-osmolality and hyponatremia E87.1 and Benign essential hypertension I10 [facility] [id number] [place] [address] [id number] June, [place] [id number] [place] [address] [id number] June, Moderate persistent asthma without complication J45.40 ; RLS (restless legs syndrome) G25.81 ; Benign essential hypertension I10 ; Anxiety F41.9 and Constipation, unspecified constipation type K59.00 [facility] [address] [id number], [place] [id number] June, Encounter for dental examination and cleaning without abnormal findings Z01.[address] [id number], [place] [id number] June, [place] [id number] [place] [address] [id number] June, [address]00565100LA [place], [place] [id number] June, [place] [id number] [place] [address] [id number] May, [facility] [place] [address] [id number] [place] [id number] May, [facility] [place] [address] [id number] [place] [address] [id number] May, [facility] [address] [id number] [place] [id number] May, [facility] [place] [address] [id number] [place] [address] [id number] Apr, [facility] [place] [id number] [place] [address] [id number] Apr, Anxiety F41.9 [facility] [place] [address] [id number] [place] [address] [id number] Apr, [facility] [place] [address] [id number] [place] [address] [id number] Mar, [facility] [place] [address] [id number] [place] [address] [id number] Mar, [facility] [place] [address] [id number] [place] [address] [id number] Mar, [facility] [place] [address] [id number] [place] 750909840 Mar, RLS (restless legs syndrome) G25.81 ; Anxiety F41.9 and Moderate persistent asthma without complication J45.40 [facility] [place] [address] [id number] [place] 036507979 Mar, [facility] [place] [address] [id number] [place] 799542089 Mar, [facility] [place] [address] [id number] [place] 759637942 Feb, [facility] [place] [address] [id number] [place], [place] [id number] Feb, [facility] [place] [address] [id number] [place] [id number] Feb, [facility] [place] [address] [facility] [address] [id number], [place] [id number] Feb, Encounter for dental examination Z01.20 [facility] [place] [address] [id number] [place] [id number] Feb, [facility] [place] [id number] [place], [place] [id number] Jan, [facility] [place] [address] [id number] [place], [place] [id number] Jan, Benign essential hypertension I10 [facility] [place] [id number] [place], [place] 745487158 Jan, RLS (restless legs syndrome) G25.81 and Gastroesophageal reflux disease, esophagitis presence not specified K21.9 [facility] [place] [id number] [place], [place] [id number] Jan, [facility] [place] [id number] [place] [address] [id number] Jan, [facility] [place] [id number] [place] [address] [id number] Dec, Anxiety F41.9 ; Benign essential hypertension I10 and RLS (restless legs syndrome) G25.81 [facility] [place] [address] [id number] [place], [place] 590841771 Dec, RLS (restless legs syndrome) G25.81 ; Esophageal reflux 530.81 and Anxiety F41.9 [facility] [address] [id number], [place] [id number] Dec, [facility] [id number] [place] [address] [id number] Nov, Anxiety F41.9 [facility] [place] [id number] [place] [address] [id number] Nov, Anxiety F41.9 ; Encounter for immunization Z23 ; Benign essential hypertension I10 ; RLS (restless legs syndrome) G25.81 and Rhinitis J31.0 [facility] [address]005[address]100[place], [place] 51304379- [address]66 Nov, [facility] [place] [id number] [place], [place] [id number] Nov, [facility] [address] [id number], [place] [id number] Nov, [facility] [address] [id number] [place] [id number] Nov, [facility] [address] [facility] [id number], [place] [id number] Nov, [facility] [place] Christianson0 [facility] [id number], [place] [id number] Oct, [facility] [address] [facility] [id number], [place] [id number] Oct, [facility] [place] [address] [id number] [place], [place] 939831972 Oct, [facility] [place] [address] [id number] [place], [place] 756326630 Oct, Esophageal reflux 530.81 ; Asthma, unspecified, unspecified status 493.90 and Essential hypertension, benign 401.1 [facility] [place] [address] [id number] [place], [place] 767208450 Oct, [facility] [place] [address] [id number] [place], [place] [id number] Oct, [facility] [place] [address] [id number] [place] [id number] Oct, [facility] [place] [address] [id number] [place] 836109591 Sep, [facility] [place] [address] [id number] [place] 933939640 Sep, Esophageal reflux 530.81 ; Insomnia 780.52 and Essential hypertension, benign 401.1 [facility] [place] [address] [id number] [place], [place] [id number] Sep, [facility] [place] [address] [id number] [place], [place] 820779957 Sep, [facility] [place] [address] [id number] [place], [place] [id number] Sep, [facility] [place] [address] [id number] [place], [place] 812778781 Sep, [facility] [place] [address] [id number] [place] [id number] Sep, [facility] [place] [address] [id number] [place] [id number] Sep, [facility] [address] [id number] [place] 818346216 Sep, [facility] [address] [id number] [place] [id number] Sep, Essential hypertension, benign 401.1 ; Hyponatremia 276.1 and 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 [facility] [address] [id number] [place] [id number] Sep, [facility] [id number] [place] [address] [id number] Aug, [facility] [address] [id number] [place] [id number] Aug, [facility] [address] [id number] [place] [address] [id number] Jul, [facility] [address] [id number] [place] [address] [id number] Jul, [facility] [address] [id number] [place] [address] [id number] Jul, [facility] [address] [id number] [place] [id number] Jul, [facility] [address] [id number] [place] [address] [id number] Jul, [facility] [address] [id number] [place] [address] [id number] Jul, Insomnia 780.52 [facility] [address] [id number] [place] [id number] June, Muscle stiffness 728.9 and Insomnia 780.52 [facility] [address] [id number] [place] [id number] June, [facility] [address] [id number] [place] [id number] June, [facility] [address] [id number] [place] [id number] June, [facility] [address] [id number] [place] [id number] June, [facility] [address] [id number] [place] [id number] May, [facility] [place] [facility] [address] [facility] [id number] [place] [address] May, [facility] [place] [facility] [address] [facility] [id number], [place] [address] May, [facility] [address] [facility] [id number] [place] [id number] Apr, [facility] [place] [facility] [address] [facility] [id number], [place] [address] Apr, [facility] [address] [facility] [id number] [place] [id number] Apr, [facility] [place] [facility] [address] [facility] [id number], [place] [address] Apr, [facility] [place] [facility] [address] [id number] [address] Apr, [facility] [place] [facility] [id number], [place] [address] Apr, [facility] [address] [id number] [place] [id number] Apr, [facility] [place] [facility] [address] [id number] [address] Apr, [facility] [address] [id number] [place] [id number] Mar, [facility] [place] [facility] [address] [id number] [address] Mar, [facility] [address] [facility] [id number] [place] [id number] Mar, [facility] [place] [facility] [address] [facility] [id number] [address] Mar, [facility] [address] [facility] [id number] [place] [id number] Mar, [facility] [address] [id number], [place] [address] Mar, [facility] [address] [facility] [place] [id number], [place] [address] Mar, [facility] [address] [id number] [place] [id number] Feb, [facility] [address] [facility] [place] [id number], [place] [address] Feb, [facility] [address] [id number] [place] [id number] Feb, [facility] [address] [id number] [place] [id number] Feb, [facility] [address] [id number] [place] [id number] Feb, [facility] [address] [facility] [place] [id number], [place] [address] Feb, [facility] [id number], [place] [address] Feb, [facility] [id number], [place] [address] Feb, [facility] [address] [facility] [id number] [place] [id number] Feb, [facility] [id number], [place] [address] Feb, [facility] [address] [id number] [place] [id number] Feb, [facility] [id number], [place] [address] Feb, [facility] [address] [facility] [place] [id number], [place] [address] Jan, [facility] [address] [facility] [id number] [place] [id number] Jan, [facility] [address] [facility] [place] [id number], [place] [address] Jan, [facility] [address] [facility] [id number] [place] [id number] Jan, [facility] [address] [facility] [place] [id number], [place] [address] Jan, [facility] [address] [facility] [facility] [id number] [place] [id number] Jan, [facility] [address] [facility] [place] [id number], [place] [address] Jan, [facility] [address] [facility] [place] [id number], [place] [address] Jan, [facility] [address] [facility] [id number] [place] [id number] Jan, [facility] [address] [facility] [place] [id number], [place] [address] Jan, [facility] [address] [facility] [place] [id number], [place] [address] June, IMMUNIZATIONS No Known Immunizations SOCIAL HISTORY Never Assessed REASON FOR VISIT 2 month follow up on pain management, needing med refills. jaylan Hinojosa PLAN OF CARE Activity Details Follow Up 3 Months Reason:pain management VITAL SIGNS Height 63 in 2016-07-31 Weight 172.6 lbs 2016-07-31 Temperature 98.2 degrees Fahrenheit 2016-07-31 Heart Rate 70 bpm 2016-07-31 Respiratory Rate 16 2016-07-31 BMI 30.57 kg/m2 2016-07-31 Blood pressure systolic 140 mmHg 2016-07-31 Blood pressure diastolic 80 mmHg 2016-07-31 MEDICATIONS Medication Instructions Dosage Frequency Start Date End Date Duration Status Hydrochlorothiazide 25 MG Orally Once a day 1 tablet 24h Active Flonase 50 MCG/ACT Nasally 2 times a day 1 spray in each nostril 12h Active Gabapentin 800 MG Orally Once a day 1 tablet 24h Active Zyprexa 20 MG TAKE ONE (1) TABLET BY MOUTH DAILY... Active Levothyroxine Sodium 50 MCG TAKE ONE (1) TABLET BY MOUTH DAILY... Active HydrOXYzine HCl 25 MG TAKE (1) TABLET BY MOUTH 3 TIMES DAILY. Active Symbicort 80-4.5 MCG/ACT Inhalation Twice a day 2 puffs 12h Active Gabapentin 300 MG Orally 3 times a day 1 tablet 8h Active Imdur 30 MG Orally Once a day 1 tablet 24h Sep, Active Patanol 0.1 % Ophthalmic Twice a day 1 drop into affected eye 12h 20 Jul, 2015 Active Dicyclomine HCl 10 mg Orally 3 times a day before meals 1 tablet Nov, Active Singulair 10 MG Orally Once a day 1 tablet in the evening 24h Active Clonazepam 0.5 MG Orally Once a day at HS, PRN for RLS. Must last one month 1 tablet Jul, Active Tramadol HCl 50 mg Orally 2 times a day must last 1 month 1 tablet Active Zolpidem Tartrate 10 mg Orally Once a day must last 1 m 1 tablet at bedtime as needed Active ProAir HFA 108 (90 Base) MCG/ACT INHALE (2) PUFFS BY MOUTH (4) TIMES DAILY NEEDED FOR SHORTNESS OF BREATH/WHEEZING. Active Ibuprofen 800 MG Orally Three times a day as needed 1 tablet Active Prilosec 40 mg Orally Once a day 1 capsule 24h Active Prilosec 40 mg Orally Once a day 1 capsule 24h Nov, Active Premarin 0.9 MG TAKE ONE (1) TABLET BY MOUTH ONCE DAILY. 90 Active Lamictal 100 MG TAKE ONE (1) TABLET BY MOUTH DAILY... Active Zyrtec Allergy 10 mg Orally Once a day 1 tablet as needed 24h 90 Active RESULTS Name Result Date Reference Range TSH 2016-07-31 TSH 1.760 0.450-4.500 PROCEDURES Procedure Date Ordered Result Body Site LAB NOT BILLED BY [facility] July 31, 2016 VENIPUNCT, ROUTINE* July 31, 2016 INSTRUCTIONS MEDICATIONS ADMINISTERED No Known Medications [...] Surgical History Esophagus stretched 2017 Hospitalization History [facility] for hyponatremia, change in mental status, angioedema 09/2014
--- OUTSIDE RECORDS SUMMARY | 2017-08-27 16:37 | XMS REPORT ---
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 Active 79239783 Problem Muscle spasms of both lower extremities M62.838 Active 025679816 Problem Bipolar depression F31.30 Active 04874700 Problem Lumbago with sciatica, left side M54.42 Active 610776294 Problem Insomnia, unspecified type G47.00 Active 833921155 Problem Abdominal spasms R10.9 Active 78357984 Problem Insomnia 780.52 Active 896534662 Problem 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 86608738 Problem Benign essential hypertension I10 Active 7447465 Problem Anxiety F41.9 Active 82881903 Problem Hyponatremia 276.1 Active 00263755 Problem Gastroesophageal reflux disease, esophagitis presence not specified K21.9 Active 746165654 Problem RLS (restless legs syndrome) G25.81 Active 29164206 Problem Moderate persistent asthma without complication J45.40 Active 127599127 ALLERGIES Substance Reaction Event Type Date Status Lyrica hives Drug Allergy Mar, Active Advair Diskus facial swelling Drug Allergy Mar, Active SOCIAL HISTORY Never Assessed PLAN OF CARE Activity Details Follow Up 2 Weeks Reason:labs VITAL SIGNS Height 63 in 2016-03-28 Weight 174.1 lbs 2016-03-28 Temperature 97.2 degrees Fahrenheit 2016-03-28 Heart Rate 78 bpm 2016-03-28 Respiratory Rate 16 2016-03-28 BMI 30.84 kg/m2 2016-03-28 Blood pressure systolic 110 mmHg 2016-03-28 Blood pressure diastolic 64 mmHg 2016-03-28 MEDICATIONS Medication Instructions Dosage Frequency Start Date End Date Duration Status Clonazepam 0.5 MG Orally Once a day at HS, PRN for RLS. Must last one month 1 tablet Jul, Active Levothyroxine Sodium 50 MCG TAKE ONE (1) TABLET BY MOUTH DAILY... Active MiraLax 17 gram/dose Orally Once a day 1 packet mixed with 8 ounces of fluid 24h Apr, Active Gabapentin 300 MG Orally 1 tab in am and 1 tab at midday 1 Tablet Active Zyprexa 20 MG TAKE ONE (1) TABLET BY MOUTH DAILY... 30 Active Tramadol HCl 50 mg Orally 2 times a day 1 tablet 12h Active Flonase 50 MCG/ACT Nasally 2 times a day 2 spray in each nostril 12h Nov Active Hydrochlorothiazide 25 MG Orally Once a day 1 tablet 24h Dec, Active Prilosec 40 mg Orally Once a day 1 capsule 24h Nov, Active Zyrtec Allergy 10 mg Orally Once a day 1 tablet as needed 24h 90 Active Premarin 0.9 MG TAKE ONE (1) TABLET BY MOUTH ONCE DAILY. 90 Active Lamictal 100 MG TAKE ONE (1) TABLET BY MOUTH DAILY... Active ProAir HFA 108 (90 Base) MCG/ACT INHALE (2) PUFFS BY MOUTH (4) TIMES DAILY NEEDED FOR SHORTNESS OF BREATH/WHEEZING. Active HydrOXYzine HCl 25 MG Orally 3 times a day 1 tablet as needed 8h Active Imdur 30 MG Orally Once a day 1 tablet 24h Sep, Active Gabapentin 800 MG Orally Once a day at bedtime 1 tablet Active Singulair 10 MG Orally Once a day 1 tablet in the evening 24h Active Zolpidem Tartrate 10 mg Orally Once a day must last 1 m 1 tablet at bedtime as needed Active Ibuprofen 800 MG Orally Three times a day as needed 1 tablet Active Symbicort 80-4.5 MCG/ACT Inhalation Twice a day 2 puffs 12h June, Active Dicyclomine HCl 10 mg Orally 3 times a day before meals 1 tablet Nov, Active RESULTS No Results PROCEDURES Procedure Date Ordered Result Body Site [facility] Mar 28, 2016 VENIPUNCT, ROUTINE* Mar 28, 2016 IMMUNIZATIONS No Known Immunizations MEDICAL (GENERAL) [...]
--- OUTSIDE RECORDS SUMMARY | 2017-08-27 16:37 | XMS REPORT ---
Author Author AIMEE LING [facility] eClinical[employer] Address Unknown Phone Unavailable Care Team Providers Care Drapery Maker Name Role Phone AIMEE LING CP Unavailable [...] Assessment RLS (restless legs syndrome) G25.81 Active Assessment Benign essential hypertension I10 Active Assessment Rhinitis J31.0 Active Problem Contact dermatitis and other eczema, due to unspecified cause 692.9 Active Problem Restless legs syndrome [RLS] 333.94 Active Assessment Encounter for immunization Z23 Active Problem Unspecified constipation 564.00 Active Assessment Anxiety F41.9 Active Problem Essential hypertension, benign 401.1 Active Medications Medication Code System Code Instructions Start Date End Date Status Dosage MiraLax [facility] [address]-46 17 gram/dose Orally Once a day April 29, 2014 1 packet mixed with 8 ounces of fluid Lisinopril-Hydrochlorothiazide [facility] [address]-37 20-12.5 MG Orally Once a day Oct 15, 2014 1 tablet Clonazepam [facility] [address]-62 0.5 MG Orally Once a day at HS, PRN for RLS. Must last one month August 04, 2014 0.5 tablet tramadol [facility] 0 50 mg orally 3 times a day prn. Must last 1 mo. April 29, 2014 1 Tablet Zyprexa [facility] [address]-44 20 MG Orally Once a day Jan 29, 2014 1 tablet Gabapentin [facility] [address]-30 300 MG Orally 1 tab am , midday 2 hs Mar 04, 2014 1-2 Tablet BusPIRone HCl [facility] [address]-36 15 MG Orally Three times a day June 09, 2014 1 tablet HydrOXYzine HCl [facility] [address]-31 25 MG Orally 3 times a day Nov 20, 2014 1 tablet as needed Zolpidem Tartrate [facility] [address]-67 10 MG Orally Once a day must last 1 m 1 tablet at bedtime as needed ProAir HFA [facility] [address]-03 108 (90 Base) MCG/ACT Inhalation 4 times a day for wheezing or SOB Oct 21, 2014 2 puffs as needed Omeprazole [facility] [address]-53 40 mg Feb 25, 2014 1 Capsule by Oral route 1 time per day Advair Diskus [facility] [address]-29 250-50 MCG/DOSE Inhalation Twice a day Mar 03, 2014 inhale 1 puff Imdur [facility] [address]-74 30 MG Orally Once a day Oct 08, 2014 1 tablet Lamictal [facility] [address]-50 100 MG Orally Once a day Sep 24, 2014 1 tablet Premarin [facility] [address]-08 0.9 MG Orally Once a day Jan 14, 2014 1 tablet Levothyroxine Sodium [facility] [address]-77 50 MCG Orally Once a day 1 tablet Flonase [facility] [address]-78 50 MCG/ACT Nasally 2 times a day Nov 30, 2014 1 spray in each nostril Procedures Procedure Coding System Code Date FLUARIX QUAD (3 & UP)-GSK-2014 CPT-4 37399 Nov 30, 2014 SINGLE IMMUNIZATION ADMIN CPT-4 64537 Nov 30, 2014 Office Visit, Est Pt., Level 3 CPT-4 77852 Nov 30, 2014 Vital Signs Date/Time: Nov 30, 2014 Cardiac Monitoring Heart Rate 76 bpm Weight 194.4 lbs Height 63 in BMI 34.43 Index Blood Pressure Diastolic 82 mmHg Blood Pressure Systolic 114 mmHg Results No Known Results Immunizations Vaccine Administration Date FLUARIX QUAD (3 & UP)-GSK-2014Nov 30, 2014 Summary Purpose eClinicalWorks Submission
--- OUTSIDE RECORDS SUMMARY | 2017-08-27 16:38 | XMS REPORT ---
Author Author AIMEE LING [facility] Address [address] [place] [address] Care Team Providers Care Validation Leader Name Role Phone AIMEE LING Unavailable PROBLEMS Type Condition ICD9-CM Code BYQ11-HQ Code Onset Dates Condition Status SNOMED Code Problem Allergic rhinitis, unspecified allergic rhinitis type J30.9 Active 50871525 Problem Bipolar depression F31.30 Active 54839488 Problem Lumbago with sciatica, left side M54.42 Active 743748226 Problem Other chronic pain G89.29 Active 92760784 Problem Overactive bladder N32.81 Active 156447125 Problem Insomnia, unspecified type G47.00 Active 008279789 Problem Abdominal spasms R10.9 Active 62786721 Problem Other specified hypothyroidism E03.8 Active 88937538 Problem Muscle spasms of both lower extremities M62.838 Active 266158026 Problem 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 19731014 Problem Hyponatremia 276.1 Active 04656239 Problem Insomnia 780.52 Active 710647029 Problem Anxiety F41.9 Active 16504054 Problem Gastroesophageal reflux disease, esophagitis presence not specified K21.9 Active 618623692 Problem RLS (restless legs syndrome) G25.81 Active 83359764 Problem Moderate persistent asthma without complication J45.40 Active 087190269 Problem Benign essential hypertension I10 Active 1188602 Problem Constipation, unspecified constipation type K59.00 Active 47279771 ALLERGIES No Information ENCOUNTERS Encounter Location Date Diagnosis [facility] [address] [id number] [place], [place] [id number] Aug, [facility] [address] [id number] [place] [id number] Aug, [facility] [place] [address] [id number] [place] [id number] Jul, [facility] [place] [id number], [place] [id number] Jul, Back spasm M62.830 [facility] [place] [address] [id number], [place] [id number] Jul, Back spasm M62.830 and Anxiety F41.9 [facility] [address] [id number], [place] [id number] June, Insomnia, unspecified type G47.00 ; Overactive bladder N32.81 and Back spasm M62.830 [facility] [id number], [place] [id number] June, Anxiety F41.9 and Lumbago with sciatica, left side M54.42 [facility] [place] [id number] [place] [address] [id number] May, Anxiety F41.9 and Lumbago with sciatica, left side M54.42 [facility] [address] [id number][place] [id number] Apr, Dental examination Z01.20 [facility] [address] [id number], [place] [id number] Apr, [facility] [place] [address] [id number], [place] [address] Apr, RLS (restless legs syndrome) G25.81 ; Lumbago with sciatica, left side M54.42 and Anxiety F41.9 [facility] [place] [address] [id number], [place] [id number] Mar, [facility] [id number], [place] [id number] Mar, Insomnia, unspecified type G47.00 [facility] [place] [address] [id number], [place] [id number] Mar, Insomnia, unspecified type G47.00 and RLS (restless legs syndrome) G25.[address] [facility] [address] [id number] BAXTER UNIFi SoftwareW[place] [id number] Mar, [facility] [address] [id number] [place] [id number] Mar, Dental examination Z01.20 [facility] [address] [id number] [address] Mar, [facility] [id number] [place] [address] [id number] Mar, Lumbago with sciatica, left side M54.42 and Anxiety F41.9 [facility] [id number] [place] [address] Mar, [facility] [id number] [place] [address] [id number] Mar, Insomnia, unspecified type G47.00 [facility] [id number] [place] [address] [id number] Mar, [facility] [id number] [place] [address] [id number] Feb, Insomnia, unspecified type G47.00 [facility] [id number] [place] [address] [id number] Feb, Lumbago with sciatica, left side M54.42 and Anxiety F41.9 [facility] [id number] [place] [address] [id number] Feb, [facility] [id number] [place] [address] [id number] Feb, RLS (restless legs syndrome) G25.81 ; Lumbago with sciatica, left side M54.42 ; Overactive bladder N32.81 and Anxiety F41.9 [facility] [id number], [place] [id number] Jan, Overactive bladder N32.81 and Moderate persistent asthma without complication J45.40 [facility] [place] [id number] [place] [address] [id number] Jan, Lumbago with sciatica, left side M54.42 and Insomnia, unspecified type G47.00 [facility] [id number] [place] [address] [id number] Jan, RLS (restless legs syndrome) G25.81 [facility] [id number], [place] [id number] Dec, Overactive bladder N32.81 and Other chronic pain G89.29 [facility] [id number] [place] [address] [id number] Dec, Lumbago with sciatica, left side M54.42 ; Insomnia, unspecified type G47.00 and RLS (restless legs syndrome) G25.81 [facility] [id number] [place] [address] [id number] Nov, Overactive bladder N32.81 [facility] [id number] [place] [address] [id number] Nov, [facility] [id number] [place] [address] [id number] Nov, Lumbago with sciatica, left side M54.42 ; Insomnia, unspecified type G47.00 and RLS (restless legs syndrome) G25.81 [facility] [id number] [place] [address] [id number] Nov, Constipation, unspecified constipation type K59.00 ; Lumbago with sciatica , left side M54.42 ; Insomnia, unspecified type G47.00 ; Bloating R14.0 and Encounter for immunization Z23 [address] [id number], [place] [id number] Oct, Dental examination Z01.20 [address] [place] [address] [id number] Oct, RLS (restless legs syndrome) G25.81 ; Lumbago with sciatica, left side M54.42 and Insomnia, unspecified type G47.00 [address] [place] [address] [id number] Sep, Moderate persistent asthma without complication J45.[address] [id number] [place] [address] [id number] Sep, Dental examination Z01.20 [address] [place] [address] [id number] Sep, Lumbago with sciatica, left side M54.42 and Insomnia, unspecified type G47.00 [facility] [id number], [place] [id number] Sep, RLS (restless legs syndrome) G25.81 [facility] [address] [id number], [place] [address] Aug, [facility] [id number], [place] [id number] Aug, [facility] [address] [place], [place] [address]E [id number] [place] [address] Aug Insomnia, unspecified type G47.00 [facility] [place] [address] [facility] [address] [id number], [place] [id number] Aug, Dental examination Z01.20 [facility] [place] [id number], [place] [id number] Aug, Vaginal discharge N89.8 [facility] [place] [id number], [place] [id number] Aug, RLS (restless legs syndrome) G25.81 [facility] [place] [address] [facility] [address] [id number], [place] [id number] Aug, Dental examination Z01.20 [facility] [place] [address] [facility] [address] [id number], [place] [id number] Jul, Dental examination Z01.20 [facility] [id number], [place] [id number] Jul, Lumbago with sciatica, left side M54.42 ; RLS (restless legs syndrome) G25.81 ; Moderate persistent asthma without complication J45.40 and Other specified hypothyroidism E03.8 [facility] [id number], [place] [id number] Jul, Insomnia, unspecified type G47.00 and Lumbago with sciatica, left side M54.42 [facility] [place] [address] [facility] [address] [id number], [place] [id number] Jul, Dental examination Z01.[address] [facility] [address] [id number], [place] [id number] May, Dental examination Z01.20 and Dental caries K02.9 [facility] [address]00565100[place], [place] [id number] May, [facility] [address]00565100[place], [place] [id number] May, RLS (restless legs syndrome) G25.81 [address]00565100[place], [place] [id number] May, Lumbago with sciatica, left side M54.42 ; Insomnia, unspecified type G47.00 and RLS (restless legs syndrome) G25.81 [id number] [place] [address] [id number] Apr, Muscle spasms of both lower extremities M62.838 ; Constipation, unspecified constipation type K59.00 and Insomnia, unspecified type G47.00 [address]00565100[place], [place] [id number] Apr, [id number] [place] [address] [id number] Apr, Anxiety F41.9 and Lumbago with sciatica, left side M54.[address] [id number], [place] [id number] Mar, Encounter for dental examination and cleaning without abnormal findings Z01.20 [address]00565100[place], [place] [id number] Mar, Muscle cramp, nocturnal R25.2 [facility] [address] [place] [address] [id number] Mar, RLS (restless legs syndrome) G25.81 ; Anxiety F41.9 ; Lumbago with sciatica, left side M54.42 ; Insomnia, unspecified type G47.00 and Muscle cramps R25.2 [facility] [address]00565100[place], [place] [address] Mar, [facility] [address] [id number], [place] [id number] Feb, [facility] [place] [address] [id number], [place] [id number] Feb, [facility] [place] [address] [id number], [place] [id number] Jan, [facility] [place] [address] [id number], [place] [id number] Jan, Moderate persistent asthma without complication J45.40 [facility] [place] [address] [id number], [place] [id number] Jan, [facility] [place] [address] [id number] [place] [id number] Jan, [facility] [place] [address] [id number], [place] [id number] Jan, [facility] [place] [address] [id number], [place] [id number] Jan, [facility] [place] [id number], [place] [id number] Dec, [facility] [address] [facility] [id number], [place] [address] Dec, [facility] [place] [address] [id number], [place] [id number] Nov, [facility] [place] [address] [id number], [place] [id number] Nov, [facility] [address] [facility] [address] [id number], [place] 134131676 Nov, Dental examination Z01.20 [facility] [place] [address] [id number], [place] [id number] Nov, Bipolar depression F31.30 [facility] [place] [address] [id number], [place] [id number] Nov, Lumbago with sciatica, left side M54.42 ; Allergic rhinitis, unspecified allergic rhinitis type J30.9 ; Bipolar depression F31.30 ; Moderate persistent asthma without complication J45.40 ; Encounter for immunization Z23 ; Abdominal spasms R10.9 and Benign essential hypertension I10 [facility] [place] [address] [id number], [place] [id number] Nov, [facility] [place] [address] [id number] [place] [id number] Oct, [facility] [place] [address] [id number], [place] [id number] Oct, [facility] [place] [address] [id number], [place] [id number] Sep, [facility] [place] [address] [id number], [place] [id number] Sep, [facility] [place] [address] [id number], [place] [id number] Sep, [id number] [place] [address] Sep [facility] [address] [id number], [place] [id number] Aug, [facility] [address] [id number], [place] [id number] Aug, Dental examination Z01.20 [facility] [address] [id number], [place] [id number] Aug, [address]00565100[place], [place] [id number] Aug, [facility] [address] [id number], [place] [id number] Jul, Allergic rhinitis, unspecified allergic rhinitis type J30.9 ; RLS ( restless legs syndrome) G25.81 ; Lumbago with sciatica, left side M54.42 and Other chronic pain G89.29 [facility] [address] [id number], [place] [id number] Jul, Allergic rhinitis, unspecified allergic rhinitis type J30.9 and RLS ( restless legs syndrome) G25.81 [facility] [address] [id number], [place] [id number] Jul, [facility] [address] [id number], [place] [id number] June, Hypo-osmolality and hyponatremia E87.1 and Benign essential hypertension I10 [facility] [id number] [place] [address] [id number] June, [facility] [place] [address] [id number] [place] [address] [id number] June, Moderate persistent asthma without complication J45.40 ; RLS (restless legs syndrome) G25.81 ; Benign essential hypertension I10 ; Anxiety F41.9 and Constipation, unspecified constipation type K59.00 [facility] [place] [address] [facility] [address] [id number] [place] [address] [id number] June, Encounter for dental examination and cleaning without abnormal findings Z01.20 [facility] [place] [address] [facility] [address] [id number] [place] [address] [id number] June, [facility] [place] [address] [id number] [place] [address] [id number] June, [facility] [place] [address] [id number] [place] [address] [id number] June, [facility] [place] [address] [id number] [place] [address] [id number] May, [facility] [place] [address] [id number] [place] [address] [id number] May, [facility] [place] [address] [id number] [place] [address] [id number] May, [facility] [place] [address] [id number] [place] [address] [id number] May, [facility] [place] [address] [id number] [place] [address] [id number] Apr, [facility] [address] [id number] [place] [address] [id number] Apr, Anxiety F41.9 [facility] [place] [address] [id number] [place] [id number] Apr, [facility] [address] [id number] [place] [address] [id number] Mar, [facility] [address] [id number] [place] [address] [id number] Mar, [facility] [place] [address] [id number] [place] [address] [id number] Mar, [facility] [address] [id number], [place] [id number] Mar, RLS (restless legs syndrome) G25.81 ; Anxiety F41.9 and Moderate persistent asthma without complication J45.40 [facility] [place] [address] [id number] [place] [address] [id number] Mar, [facility] [place] [address] [id number] [place] [address] [id number] Mar, [facility] [place] [address] [id number] [place] [address] [id number] Feb, [facility] [address] [id number] [place] [address] [id number] Feb, [facility] [id number] [place] [address] [id number] Feb, [address]00565100[place] [id number] Feb, Encounter for dental examination Z01.20 [facility] [address] [id number] [place] [address] [id number] Feb, [facility] [id number] [place] [address] [id number] Jan, [facility] [id number] [place] [address] [id number] Jan, Benign essential hypertension I10 [facility] [id number] [place] [address] [id number] Jan, RLS (restless legs syndrome) G25.81 and Gastroesophageal reflux disease, esophagitis presence not specified K21.9 [facility] [address] [id number] [place] [address] [id number] Jan, [facility] [address] [id number] [place] [address] [id number] Jan, [facility] [id number] [place] [address] [id number] Dec, Anxiety F41.9 ; Benign essential hypertension I10 and RLS (restless legs syndrome) G25.81 [facility] [id number] [place] [address] [id number] Dec, RLS (restless legs syndrome) G25.81 ; Esophageal reflux 530.81 and Anxiety F41.9 [facility] [address] [id number], [place] [id number] Dec, [facility] [place] [id number], [place] [id number] Nov, Anxiety F41.9 [facility] [id number] [place] [address] [id number] Nov, Anxiety F41.9 ; Encounter for immunization Z23 ; Benign essential hypertension I10 ; RLS (restless legs syndrome) G25.81 and Rhinitis J31.0 [facility] [address]00565100[place], [place] [address] Nov, [facility] [id number], [place] [id number] Nov, [facility] [place] [address] [facility] [address] [id number], [place] [id number] Nov, [facility] [id number] [place] [address] [id number] Nov, [address] [place] [address] [id number] Nov, [facility] [place] [address] [facility] [id number], [place] [phone] Oct, [facility] [address]00565100[place] [phone] Oct, [facility] [place] [id number], [place] [id number] Oct, [facility] [address] [id number], [place] [id number] Oct, Esophageal reflux 530.81 ; Asthma, unspecified, unspecified status 493.90 and Essential hypertension, benign 401.1 [facility] [id number], [place] [id number] Oct, [id number] [place] [address] [id number] Oct, [facility] [address] [id number] [place] [id number] Oct, [facility] [address] [id number] [place] [id number] Sep, [facility] [address] [id number] [place] [phone] Sep, Esophageal reflux 530.81 ; Insomnia 780.52 and Essential hypertension, benign 401.1 [facility] [address] [id number] [place] [id number] Sep, [facility] [address] [id number] [place] [id number] Sep, [facility] [address] [id number] [place] [id number] Sep, [facility] [place] [address] [id number] [place] [id number] Sep, [facility] [place] [address] [id number] [place] [id number] Sep, [facility] [place] [address] [id number] [place] [phone] Sep, [facility] [place] [address] [id number] [place] [phone] Sep, [facility] [place] [address] [id number] [place] [id number] Sep, Essential hypertension, benign 401.1 ; Hyponatremia 276.1 and 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 [facility] [place] [address] [id number], [place] [id number] Sep, [facility] [place] [address] [id number], [place] [id number] Aug, [facility] [place] [address] [id number] [place] [id number] Aug, [facility] [id number] [place] [id number] Jul, [facility] [address] [id number] [place] [id number] Jul, [facility] [address] [id number][place] [id number] Jul, [facility] [address] [id number], [place] [id number] Jul, [facility] [address] [id number][place] [id number] Jul, [facility] [address] [id number][place] [id number] Jul, Insomnia 780.52 [facility] [address] [id number] [id number] June, Muscle stiffness 728.9 and Insomnia 780.52 [facility] [address] [id number][place] [id number] June, [facility] [address] [id number][place] [id number] June, [facility] [address] [id number], [place] [id number] June, [facility] [address] [id number], [place] [id number] June, [facility] [address] [id number], [place] [id number] May, [facility] [id number] [address] May, [facility] [id number] [place] [address] May, [facility] [address] [id number], [place] [id number] Apr, [facility] [id number], [place] [address] Apr, [facility] [address] [facility] [id number][place] [id number] Apr, [facility] [id number] [place] [address] Apr, [facility] [address] [id number], [place] [address] Apr, [facility] [id number] [place] [address] Apr, [facility] [address] [id number] [place] [id number] Apr, [facility] [address] [facility] [id number], [place] [address] Apr, [facility] [address] [facility] [id number] [place], [place] [id number] Mar, [facility] [address], [place] [address] Mar, [facility] [address] [id number] [place] [id number] Mar, [facility] [address], [place] [address] Mar, [facility] [id number][place] [id number] Mar, [facility] [address], [place] [address] Mar, [facility] [address], [place] [address] Mar, [facility] [id number] [place] [id number] Feb, [facility] [address], [place] [address] Feb, [facility] [address] [id number][place] [id number] Feb, [facility] [address] [facility] [id number][place] [id number] Feb, [facility] [address] [facility] [id number][place] [id number] Feb, [facility] [address], [place] [address] Feb, [facility] [address] [id number] [address] Feb, [facility] [address], [place] [address] Feb, [facility] [address] [id number] [place] [id number] Feb, [facility] [address], [place] [address] Feb, [facility] [id number] [id number] Feb, [facility] [address], [place] [address] Feb, [facility] [address], [place] [address] Jan, [facility] [id number] [id number] Jan, [facility] [address], [place] [address] Jan, [facility] [id number][place] [id number] Jan, [facility] [address], [place] [address] Jan, [facility] [id number] [id number] Jan, [facility] [address], [place] [address] Jan, [facility] [address], [place] [address] Jan, [facility] [address] [id number][place] [id number] Jan, [facility] [address], [place] [address] Jan, [facility] [address], [place] [address] June, IMMUNIZATIONS No Known Immunizations SOCIAL HISTORY Never Assessed REASON FOR VISIT med refills PLAN OF CARE VITAL SIGNS MEDICATIONS Medication Instructions Dosage Frequency Start Date End Date Duration Status Oxybutynin Chloride 5 mg Orally Twice a day .5 tab am 1tablet pm 12h 30 Nov, 2016 Active Prilosec 40 mg Orally Once a day 1 capsule 24h Nov, Active Levothyroxine Sodium 50 mcg Orally Once a day 1 tablet on an empty stomach in the morning 24h Active Singulair 10 mg Orally Once a day 1 tablet in the evening 24h Active RESULTS No Results PROCEDURES No [...]
--- OUTSIDE RECORDS SUMMARY | 2017-08-27 16:38 | XMS REPORT ---
Author Author AIMEE LING Organization [employer] Address Unknown Phone Unavailable Care Team Providers Care Typewriter Ribbon Winder Name Role Phone AIMEE LING CP Unavailable [...]
--- OUTSIDE RECORDS SUMMARY | 2017-08-27 16:38 | XMS REPORT ---
Author Author AIMEE LING [facility] [employer] Address Unknown Phone Unavailable Care Team Providers Care Side Framer Name Role Phone AIMEE LING CP Unavailable [...] Start Date End Date Status Dosage Zyprexa [facility] [address]-03 20 MG Orally Once a day Jan 29, 2014 1 tablet Lamictal [facility] [address]-43 100 MG Orally Once a day Sep 24, 2014 1 tablet Results No Known Results Summary Purpose [employer] Submission
--- OUTSIDE RECORDS SUMMARY | 2017-08-27 16:40 | XMS REPORT ---
Author Author JN VU [facility] Address [address] [place] [address] Care Team Providers Care In Home Aide Name Role Phone JN VU Unavailable PROBLEMS Type Condition ICD9-CM Code IKD40-UX Code Onset Dates Condition Status SNOMED Code Problem Encounter for dental examination and cleaning without abnormal findings Z01.20 Active 065305140 Problem Allergic rhinitis, unspecified allergic rhinitis type J30.9 Active 52239397 Problem Constipation, unspecified constipation type K59.00 Active 96223806 Problem Other specified hypothyroidism E03.8 Active 75417723 Problem Muscle spasms of both lower extremities M62.838 Active 534154981 Problem Bipolar depression F31.30 Active 16685099 Problem Lumbago with sciatica, left side M54.42 Active 074988216 Problem Insomnia, unspecified type G47.00 Active 583950661 Problem Abdominal spasms R10.9 Active 36961587 Problem Insomnia 780.52 Active 565284559 Problem 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 55723979 Problem Benign essential hypertension I10 Active 5799318 Problem Anxiety F41.9 Active 21958775 Problem Hyponatremia 276.1 Active 92947376 Problem Gastroesophageal reflux disease, esophagitis presence not specified K21.9 Active 852042797 Problem RLS (restless legs syndrome) G25.81 Active 89535301 Problem Moderate persistent asthma without complication J45.40 Active 464894245 ALLERGIES Substance Reaction Event Type Date Status Lyrica hives Drug Allergy Mar, Active Advair Diskus facial swelling Drug Allergy Mar, Active SOCIAL HISTORY Never Assessed PLAN OF CARE Activity Details Follow Up extractions Reason: VITAL SIGNS Heart Rate 59 bpm 2016-04-10 Blood pressure systolic 141 mmHg 2016-04-10 Blood pressure diastolic 82 mmHg 2016-04-10 MEDICATIONS Unknown Medications RESULTS No Results PROCEDURES Procedure Date Ordered Result Body Site PERIODIC ORAL EXAMINATION Apr 10, 2016 VERTICAL BITEWINGS - 7 TO 8 FILMS Apr 10, 2016 PROPHYLAXIS - ADULT Apr 10, 2016 IMMUNIZATIONS No Known Immunizations MEDICAL (GENERAL) [...]
--- OUTSIDE RECORDS SUMMARY | 2017-08-27 16:40 | XMS REPORT ---
Author Author AIMEE LING Organization [employer] Address Unknown Phone Unavailable Care Team Providers Care Melter Supervisor Oxygen Furnace Name Role Phone AIMEE LING CP Unavailable [...] Date Status Dosage Clonazepam [facility] [address]-80 0.5 MG Orally Once a day at HS, PRN for RLS. Must last one month August 04, 2014 0.5 tablet Zolpidem Tartrate [facility] [address]-83 10 MG Orally Once a day must last 1 m 1 tablet at bedtime as needed Imdur [facility] [address]-62 30 MG Orally Once a day Oct 08, 2014 1 tablet Results No Known Results Summary Purpose [employer] Submission
--- OUTSIDE RECORDS SUMMARY | 2017-08-27 16:41 | XMS REPORT ---
Author Author LEYDA TOLENTINO [facility] Address [address] [place] [address] Care Team Providers Care Community Living Instructor Name Role Phone LEYDA TOLENTINO Unavailable PROBLEMS Type Condition ICD9-CM Code [id number] Code Onset Dates Condition Status SNOMED Code Problem Allergic rhinitis, unspecified allergic rhinitis type J30.9 Active 76766652 Problem Bipolar depression F31.30 Active 11222992 Problem Lumbago with sciatica, left side M54.42 Active 869181838 Problem Other chronic pain G89.29 Active 52878332 Problem Overactive bladder N32.81 Active 647752671 Problem Insomnia, unspecified type G47.00 Active 770175381 Problem Abdominal spasms R10.9 Active 64703293 Problem Other specified hypothyroidism E03.8 Active 33199829 Problem Muscle spasms of both lower extremities M62.838 Active 355064556 Problem 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 55449569 Problem Hyponatremia 276.1 Active 96243609 Problem Insomnia 780.52 Active 163147693 Problem Anxiety F41.9 Active 40295658 Problem Gastroesophageal reflux disease, esophagitis presence not specified K21.9 Active 309955343 Problem RLS (restless legs syndrome) G25.81 Active 80633243 Problem Moderate persistent asthma without complication J45.40 Active 752850858 Problem Benign essential hypertension I10 Active 5535414 Problem Constipation, unspecified constipation type K59.00 Active 64448781 ALLERGIES Substance Reaction Event Type Date Status Lyrica hives Drug Allergy Jul, Active Advair Diskus facial swelling Drug Allergy Jul, Active ENCOUNTERS Encounter Location Date Diagnosis [facility] [address] [facility] [id number] [place] [id number] June, [facility] [address] [id number] [place] [id number] May, Anxiety F41.9 and Lumbago with sciatica, left side M54.42 [facility] [address] [facility] [address] [id number], [place] [id number] Apr, Dental examination Z01.[address] [facility] [address] [id number][place] [id number] Apr, [facility] [place] [id number], [place] [id number] Apr, RLS (restless legs syndrome) G25.81 ; Lumbago with sciatica, left side M54.42 and Anxiety F41.9 [facility] [place] [address] [id number] [id number] Mar, [facility] [place] [address] [id number] [place] [address] [id number] Mar, Insomnia, unspecified type G47.00 [facility] [place] [id number] [place] [address] [id number] Mar, Insomnia, unspecified type G47.00 and RLS (restless legs syndrome) G25.81 [facility] [place] [address] [facility] [address] [id number], [place] [id number] Mar, [facility] [place] [address] [facility] [address] [id number], [place] [id number] Mar, Dental examination Z01.20 [facility] [address]005[address]100[place] [address] Mar, [facility] [place] [id number], [place] [id number] Mar, Lumbago with sciatica, left side M54.42 and Anxiety F41.9 [facility] [address] [facility] [id number] [place] [phone] Mar, [facility] [place] [id number] [place] [address] [id number] Mar, Insomnia, unspecified type G47.00 [facility] [place] [id number] [place] [address] [id number] Mar, [facility] [id number] [place] [address] [id number] Feb, Insomnia, unspecified type G47.00 [facility] [id number] [place] [address] [id number] Feb, Lumbago with sciatica, left side M54.42 and Anxiety F41.9 [facility] [id number] [place] [address] [id number] Feb, [facility] [id number] [place] [address] [id number] Feb, RLS (restless legs syndrome) G25.81 ; Lumbago with sciatica, left side M54.42 ; Overactive bladder N32.81 and Anxiety F41.9 [place] [id number] [place] [address] [id number] Jan, Overactive bladder N32.81 and Moderate persistent asthma without complication J45.40 [place] [id number] [place] [address] [id number] Jan, Lumbago with sciatica, left side M54.42 and Insomnia, unspecified type G47.00 [place] [id number] [place] [address] [id number] Jan, RLS (restless legs syndrome) G25.81 [place] [id number] [place] [address] [id number] Dec, Overactive bladder N32.81 and Other chronic pain G89.29 [place] [id number] [place] [address] [id number] Dec, Lumbago with sciatica, left side M54.42 ; Insomnia, unspecified type G47.00 and RLS (restless legs syndrome) G25.81 [place] [id number] [place] [address] [id number] Nov, Overactive bladder N32.81 [facility] [id number] [place] [address] [id number] Nov, [facility] [id number] [place] [address] [id number] Nov, Lumbago with sciatica, left side M54.42 ; Insomnia, unspecified type G47.00 and RLS (restless legs syndrome) G25.81 [facility] [place] [id number] [place] [address] [id number] Nov, Constipation, unspecified constipation type K59.00 ; Lumbago with sciatica , left side M54.42 ; Insomnia, unspecified type G47.00 ; Bloating R14.0 and Encounter for immunization Z23 [facility] [place] [address] [facility] [address] [id number], [place] [id number] Oct, Dental examination Z01.20 [facility] [place] [id number] [place] [address] [id number] Oct, RLS (restless legs syndrome) G25.81 ; Lumbago with sciatica, left side M54.42 and Insomnia, unspecified type G47.00 [facility] [place] [id number] [place] [address] [id number] Sep, Moderate persistent asthma without complication J45.40 [facility] [place] [address] [facility] [address] [id number], [place] [id number] Sep, Dental examination Z01.20 [facility] [place] [id number] [place] [address] [id number] Sep, Lumbago with sciatica, left side M54.42 and Insomnia, unspecified type G47.00 [facility] [place] [id number] [place] [address] [id number] Sep, RLS (restless legs syndrome) G25.81 [facility] [address] [facility] [id number] [place] [address] Aug, [facility] [place] [address] [id number], [place] [id number] Aug, [facility] [place] [address] [place] [address] [id number] [place] [address] Aug Insomnia, unspecified type G47.00 [facility] [place] [address] [facility] [address] [id number], [place] [id number] Aug, Dental examination Z01.20 [facility] [id number], [place] [id number] Aug, Vaginal discharge N89.8 [place] [id number] [place] [address] [id number] Aug, RLS (restless legs syndrome) G25.[address] [id number], [place] [id number] Aug, Dental examination Z01.20 [facility] [address] [id number], [place] [id number] Jul, Dental examination Z01.20 [place] [id number] [place] [address] [id number] Jul, Lumbago with sciatica, left side M54.42 ; RLS (restless legs syndrome) G25.81 ; Moderate persistent asthma without complication J45.40 and Other specified hypothyroidism E03.[address] [place] [address] [id number] Jul, Insomnia, unspecified type G47.00 and Lumbago with sciatica, left side M54.42 [address] [place] [address] [id number] Jul, Dental examination Z01.20 [facility] AR[address]OLDRUFFIN[address]00565100[place] [phone] May, Dental examination Z01.20 and Dental caries K02.9 [address]00565100[place] [id number] May, [address]00565100[place], [place] [id number] May, RLS (restless legs syndrome) G25.81 [address] [place] [address] [id number] May, Lumbago with sciatica, left side M54.42 ; Insomnia, unspecified type G47.00 and RLS (restless legs syndrome) G25.81 [address]00565100[place] [id number] Apr, Muscle spasms of both lower extremities M62.838 ; Constipation, unspecified constipation type K59.00 and Insomnia, unspecified type G47.00 [facility] [place] [id number] [place] [address] [id number] Apr, [facility] [place] [address] [id number] [place] [address] [id number] Apr, Anxiety F41.9 and Lumbago with sciatica, left side M54.42 [facility] [address]00565100[place], [place] [id number] Mar, Encounter for dental examination and cleaning without abnormal findings Z01.20 [facility] [place] [id number] [place] [address] [id number] Mar, Muscle cramp, nocturnal R25.2 [facility] [place] [id number] [place] [address] [id number] Mar, RLS (restless legs syndrome) G25.81 ; Anxiety F41.9 ; Lumbago with sciatica, left side M54.42 ; Insomnia, unspecified type G47.00 and Muscle cramps R25.2 [facility] [place] [id number] [place] [address] Mar, [facility] [place] [id number] [place] [address] [id number] Feb, [facility] [place] [id number] [place] [address] [id number] Feb, [facility] [place] [id number] [place] [address] [id number] Jan, [facility] [place] [id number] [place] [address] [id number] Jan, Moderate persistent asthma without complication J45.40 [facility] [place] [id number] [place] [address] [id number] Jan, [facility] [place] [address] [id number] [place] [address] [id number] Jan, [facility] [id number] [place] [address] [id number] Jan, [facility] [place] [address] [id number], [place] [phone] Jan, [facility] [place] [address] [id number], [place] [id number] Dec, [facility] [address] [facility] [id number] [place] 21396[address] Dec, [facility] [place] [address] [id number], [place] [phone] Nov, [facility] [place] [address] [id number], [place] [phone] Nov, [facility] [place] [address] [facility] [id number], [place] [id number] Nov, Dental examination Z01.20 [facility] [address] [id number], [place] [id number] Nov, Bipolar depression F31.30 [facility] [id number], [place] [phone] Nov, Lumbago with sciatica, left side M54.42 ; Allergic rhinitis, unspecified allergic rhinitis type J30.9 ; Bipolar depression F31.30 ; Moderate persistent asthma without complication J45.40 ; Encounter for immunization Z23 ; Abdominal spasms R10.9 and Benign essential hypertension I10 [facility] [address] [id number], [place] [id number] Nov, [facility] [address] [id number], [place] [phone] Oct, [facility] [address] [id number], [place] [phone] Oct, [facility] [address] [id number], [place] [id number] Sep, [facility] [address] [id number], [place] [id number] Sep, [facility] [address] [id number], [place] [phone] Sep, [facility] [place] [address] [facility] [id number] [place] [address] Sep [facility] [address]00565100[place], [place] [id number] Aug, [facility] [address] [id number] [place] [id number] Aug, Dental examination Z01.20 [facility] [id number], [place] [id number] Aug, [address] [id number], [place] [id number] Aug, [facility] [id number] [place] [address] [id number] Jul, Allergic rhinitis, unspecified allergic rhinitis type J30.9 ; RLS ( restless legs syndrome) G25.81 ; Lumbago with sciatica, left side M54.42 and Other chronic pain G89.29 [facility] [id number], [place] [id number] Jul, Allergic rhinitis, unspecified allergic rhinitis type J30.9 and RLS ( restless legs syndrome) G25.81 [facility] [id number], [place] [id number] Jul, [facility] [id number] [place] [address] [id number] June, Hypo-osmolality and hyponatremia E87.1 and Benign essential hypertension I10 [facility] [id number] [place] [address] [id number] June, [place] [id number] [place] [address] [id number] June, Moderate persistent asthma without complication J45.40 ; RLS (restless legs syndrome) G25.81 ; Benign essential hypertension I10 ; Anxiety F41.9 and Constipation, unspecified constipation type K59.00 [address] [id number], [place] [phone] June, Encounter for dental examination and cleaning without abnormal findings Z01.20 [facility] [address] [id number], [place] [id number] June, [facility] [id number] [place] [address] [id number] June, [facility] [place] [address] [id number] [place] [phone] June, [facility] [place] [address] [id number] [place] [id number] May, [facility] [place] [address] [id number] [place] [id number] May, [facility] [place] [address] [id number] [place] [id number] May, [facility] [place] [address] [id number] [place] [id number] May, [facility] [place] [address] [id number] [place] [id number] Apr, [facility] [place] [address] [id number] [place] [id number] Apr, Anxiety F41.9 [facility] [place] [address] [id number] [place] [id number] Apr, [facility] [place] [address] [id number] [place] [id number] Mar, [facility] [place] [address] [id number] [place] [id number] Mar, [facility] [place] [address] [id number] [place] [id number] Mar, [facility] [place] [address] [id number] [place] [id number] Mar, RLS (restless legs syndrome) G25.81 ; Anxiety F41.9 and Moderate persistent asthma without complication J45.40 [facility] [place] [address] [id number] [place] [id number] Mar, [facility] [place] [address] [id number] [place] [id number] Mar, [facility] [place] [address] [id number] [place] [id number] Feb, [facility] [place] [address] [id number] [place] [phone] Feb, [facility] [place] [address] [id number] [place] [id number] Feb, [facility] [place] [address] [place] [address] AVE [id number], [place] [phone] Feb, Encounter for dental examination Z01.20 [facility] [id number], [place] [id number] Feb, [facility] [id number], [place] [id number] Jan, [facility] [id number] [place] [address] [id number] Jan, Benign essential hypertension I10 [facility] [id number], [place] [id number] Jan, RLS (restless legs syndrome) G25.81 and Gastroesophageal reflux disease, esophagitis presence not specified K21.9 [facility] [id number] [place] [address] [id number] Jan, [address]00565100[place], [place] [id number] Jan, [place] [id number] [place] [address] [id number] Dec, Anxiety F41.9 ; Benign essential hypertension I10 and RLS (restless legs syndrome) G25.81 [address]00565100[place], [place] [id number] Dec, RLS (restless legs syndrome) G25.81 ; Esophageal reflux 530.81 and Anxiety F41.9 [facility] [place] [address] [place] [address] [id number], [place] [id number] Dec, [facility] [id number] [place] [address] [id number] Nov, Anxiety F41.9 [address] [place] [address] [id number] Nov, Anxiety F41.9 ; Encounter for immunization Z23 ; Benign essential hypertension I10 ; RLS (restless legs syndrome) G25.81 and Rhinitis J31.0 [facility] [place] [address]005[address]100[place] 88658102- [address] Nov, [facility] [address] [id number], [place] [phone] Nov, [facility] [address] [id number], [place] [id number] Nov, [facility] [place] [address] [id number], [place] [id number] Nov, [facility] [address] [facility] [id number], [place] [phone] Nov, [facility] [address] [id number], [place] [id number] Oct, [facility] [address] [facility] [id number], [place] [id number] Oct, [facility] [place] [id number], [place] [id number] Oct, [facility] [id number], [place] [id number] Oct, Esophageal reflux 530.81 ; Asthma, unspecified, unspecified status 493.90 and Essential hypertension, benign 401.1 [facility] [place] [id number], [place] [id number] Oct, [facility] [place] [id number] [place] [address] [id number] Oct, [facility] [place] [id number] [place] [address] [id number] Oct, [facility] [place] [id number], [place] [id number] Sep, [facility] [place] [id number], [place] 727836051 Sep, Esophageal reflux 530.81 ; Insomnia 780.52 and Essential hypertension, benign 401.1 [facility] [place] [id number], [place] [id number] Sep, [facility] [place] [id number] [place] [address] [id number] Sep, [facility] [id number], [place] [id number] Sep, [facility] [id number] [place] [address] [id number] Sep, [facility] [place] [address] [id number], [place] [id number] Sep, [facility] [place] [address] [id number], [place] [id number] Sep, [facility] [place] [address] [id number], [place] [phone] Sep, [facility] [place] [address] [id number] [place] [phone] Sep, Essential hypertension, benign 401.1 ; Hyponatremia 276.1 and 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 [facility] [place] [address] [id number] [place] [address] [id number] Sep, [facility] [place] [address] [id number] [place] [address] [id number] Aug, [facility] [place] [id number], [place] [id number] Aug, [facility] [place] [address] [id number] [place] [address] [id number] Jul, [facility] [place] [address] [id number], [place] [id number] Jul, [facility] [place] [address] [id number] [place] [address] [id number] Jul, [facility] [place] [address] [id number] [place] [address] [id number] Jul, [facility] [place] [address] [id number], [place] [id number] Jul, [facility] [place] [id number], [place] [id number] Jul, Insomnia 780.52 [facility] [address] [id number] [id number] June, Muscle stiffness 728.9 and Insomnia 780.52 [facility] [address] [id number][place] [id number] June, [facility] [address] [id number][place] [id number] June, [facility] [address] [id number][place] [id number] June, [facility] [address] [id number] [place] [id number] June, [facility] [address] [id number] [place] [id number] May, [facility] [place] [facility] [address] [facility] [id number] [place] [address] May, [facility] [place] [facility] [address] [facility] [id number] [place] [address] May, [facility] [address] [facility] [id number] [place] [id number] Apr, [facility] [place] [facility] [address] [facility] [id number] [place] [address] Apr, [facility] [address] [id number] [place] [id number] Apr, [facility] [place] [facility] [id number] [place] [address] Apr, [facility] [place] [facility] [address] [id number] [address] Apr, [facility] [place] [facility] [id number] [address] Apr, [facility] [address] [id number] [id number] Apr, [facility] [place] [facility] [address] [id number] [address] Apr, [facility] [address] [facility] [id number] [place] [id number] Mar, [facility] [place] [facility] [address] [facility] [id number] [place] [address] Mar, [facility] [address] [facility] [id number] [place] [id number] Mar, [facility] [place] [facility] [address] [id number] [address] Mar, [facility] [address] [facility] [id number][place] [id number] Mar, [facility] [place] [facility] [address] [facility] [id number] [place] [address] Mar, [facility] [place] [facility] [address] [facility] [id number] [place] [address] Mar, [facility] [address] [facility] [id number] [place] [id number] Feb, [facility] [place] [facility] [address] [facility] [id number] [place] [address] Feb, [facility] [address] [id number] [place] [id number] Feb, [facility] [address] [facility] [id number] [id number] Feb, [facility] [address] [facility] [id number][place] [id number] Feb, [facility] [id number] [address] Feb, [facility] [address] [facility] [id number] [place] [address] Feb, [facility] [id number] [address] Feb, [facility] [address] [facility] [id number][place] [id number] Feb, [facility] [address] [id number] [address] Feb, [facility] [address] [facility] [id number][place] [id number] Feb, [facility] [address] [facility] [id number] [address] Feb, [facility] [address] [facility] [id number] [place] [address] Jan, [facility] [address] [facility] [id number][place] [id number] Jan, [facility] [address] [id number] [address] Jan, [facility] [address] [id number] [id number] Jan, [facility] [place] [id number] [address] Jan, [facility] [address] [id number] [id number] Jan, [facility] [place] [id number] [address] Jan, [facility] [place] [id number] [address] Jan, [facility] [address] [id number][place] [id number] Jan, [facility] [place] [id number] [address] Jan, [facility] [place] [id number] [address] June, IMMUNIZATIONS No Known Immunizations SOCIAL HISTORY Never Assessed REASON FOR VISIT restorative PLAN OF CARE Activity Details Follow Up prn Reason:fillings VITAL SIGNS Height 63 in 2016-07-17 Blood pressure systolic 135 mmHg 2016-07-17 Blood pressure diastolic 80 mmHg 2016-07-17 MEDICATIONS Medication Instructions Dosage Frequency Start Date End Date Duration Status Dicyclomine HCl 10 mg Orally 3 times a day before meals 1 tablet Nov, Active Gabapentin 300 MG Orally 3 times a day 1 tablet 8h Active Levothyroxine Sodium 50 MCG TAKE ONE (1) TABLET BY MOUTH DAILY... Active ProAir HFA 108 (90 Base) MCG/ACT INHALE (2) PUFFS BY MOUTH (4) TIMES DAILY NEEDED FOR SHORTNESS OF BREATH/WHEEZING. Active Clonazepam 0.5 MG Orally Once a day at HS, PRN for RLS. Must last one month 1 tablet Jul, Active Hydrochlorothiazide 25 MG Orally Once a day 1 tablet 24h Active Zyrtec Allergy 10 mg Orally Once a day 1 tablet as needed 24h 90 Active Singulair 10 MG Orally Once a day 1 tablet in the evening 24h 90 Active Patanol 0.1 % Ophthalmic Twice a day 1 drop into affected eye 12h Jul, Active Tramadol HCl 50 mg Orally 2 times a day mmust last 1 month 1 tablet Active Zyprexa 20 MG TAKE ONE (1) TABLET BY MOUTH DAILY... 30 Active Prilosec 40 mg Orally Once a day 1 capsule 24h 31 Nov, 2015 Active Imdur 30 MG Orally Once a day 1 tablet 24h Sep, Active Symbicort 80-4.5 MCG/ACT Inhalation Twice a day 2 puffs 12h June, Active Premarin 0.9 MG TAKE ONE (1) TABLET BY MOUTH ONCE DAILY. 90 Active Zolpidem Tartrate 10 mg Orally Once a day must last 1 m 1 tablet at bedtime as needed Active HydrOXYzine HCl 25 MG TAKE (1) TABLET BY MOUTH 3 TIMES DAILY. Active Prilosec 40 mg Orally Once a day 1 capsule 24h Active Ibuprofen 800 MG Orally Three times a day as needed 1 tablet Active Gabapentin 800 MG Orally Once a day 1 tablet 24h Active Flonase 50 MCG/ACT Nasally 2 times a day 1 spray in each nostril 12h Active Lamictal 100 MG TAKE ONE (1) TABLET BY MOUTH DAILY... Active RESULTS No Results PROCEDURES Procedure Date Ordered Result Body Site RESIN COMPOS - 2 SURFACES POSTERIOR July 17, 2016 Billing Notes on claim July 17, 2016 INSTRUCTIONS MEDICATIONS ADMINISTERED No Known Medications [...] Surgical History Esophagus stretched 2017 Hospitalization History [facility] for hyponatremia, change in mental status, angioedema 09/2014
--- OUTSIDE RECORDS SUMMARY | 2017-08-27 16:44 | XMS REPORT ---
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 Name Role Phone TOLENTINO LEYDA Unavailable PROBLEMS Type Condition ICD9-CM Code BCO63-JN Code Onset Dates Condition Status SNOMED Code Problem Allergic rhinitis, unspecified allergic rhinitis type J30.9 Active 96767461 Problem Bipolar depression F31.30 Active 54931884 Problem Lumbago with sciatica, left side M54.42 Active 047577372 Problem Other chronic pain G89.29 Active 84060656 Problem Overactive bladder N32.81 Active 213757747 Problem Insomnia, unspecified type G47.00 Active 061004693 Problem Abdominal spasms R10.9 Active 09205816 Problem Other specified hypothyroidism E03.8 Active 98002985 Problem Muscle spasms of both lower extremities M62.838 Active 751151289 Problem 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 [address] [facility] [id number] [place] [id number] June, [facility] [address] [id number], [place] [id number] May, Anxiety F41.9 and Lumbago with sciatica, left side M54.42 [facility] [address] [facility] [id number] [place] [id number] Apr, Dental examination Z01.20 [facility] [address] [facility] [address] [id number] [place]ENT[place] [id number] Apr, [facility] [id number], [place] [id number] Apr, RLS (restless legs syndrome) G25.81 ; Lumbago with sciatica, left side M54.42 and Anxiety F41.9 [facility] [id number] [place] [address] [id number] Mar, [facility] [address] [place] [address] [id number] [place] [address] [id number] Mar, Insomnia, unspecified type G47.00 [facility] [id number] [place] [address] [id number] Mar, Insomnia, unspecified type G47.00 and RLS (restless legs syndrome) G25.81 [facility] Christianson[address] [facility] [address] [id number] [place] [id number] Mar, [facility] [address]on[address] [place], [place] [address] [id number] [place] [id number] Mar, Dental examination Z01.20 [facility] [address] [place] [address] Mar, [facility] [id number], [place] [id number] Mar, Lumbago with sciatica, left side M54.42 and Anxiety F41.9 [facility] [address] [place] [address]- 2546 Mar, [facility] [id number] [place] [address] [id number] Mar, Insomnia, unspecified type G47.00 [facility] [id number], [place] [id number] Mar, [facility] [id number] [place] [address] [id number] Feb, Insomnia, unspecified type G47.00 [facility] [address] [id number], [place] [id number] Feb, Lumbago with sciatica, left side M54.42 and Anxiety F41.9 [facility] [address] [id number] [place] [address] [id number] Feb, [facility] [address] [id number] [place] [address] [id number] Feb, RLS (restless legs syndrome) G25.81 ; Lumbago with sciatica, left side M54.42 ; Overactive bladder N32.81 and Anxiety F41.9 [facility] [id number] [place] [address] [id number] Jan, Overactive bladder N32.81 and Moderate persistent asthma without complication J45.40 [facility] [id number] [place] [address] [id number] Jan, Lumbago with sciatica, left side M54.42 and Insomnia, unspecified type G47.00 [facility] [id number] [place] [address] [id number] Jan, RLS (restless legs syndrome) G25.81 [facility] [id number] [place] [address] [id number] Dec, Overactive bladder N32.81 and Other chronic pain G89.29 [facility] [id number] [place] [address] [id number] Dec, Lumbago with sciatica, left side M54.42 ; Insomnia, unspecified type G47.00 and RLS (restless legs syndrome) G25.81 [facility] [id number], [place] [id number] Nov, Overactive bladder N32.81 [facility] [address] [id number] [place] [address] [id number] Nov, [facility] [address] [id number] [place] [address] [id number] Nov, Lumbago with sciatica, left side M54.42 ; Insomnia, unspecified type G47.00 and RLS (restless legs syndrome) G25.81 [facility] [id number], [place] [id number] Nov, Constipation, unspecified constipation type K59.00 ; Lumbago with sciatica , left side M54.42 ; Insomnia, unspecified type G47.00 ; Bloating R14.0 and Encounter for immunization Z23 [facility] [address] [place] [address] AVE [id number] [place] [id number] Oct, Dental examination Z01.20 [facility] [id number], [place] [id number] Oct, RLS (restless legs syndrome) G25.81 ; Lumbago with sciatica, left side M54.42 and Insomnia, unspecified type G47.00 [facility] [id number], [place] [id number] Sep, Moderate persistent asthma without complication J45.40 [facility] [address] [place] [address] AVE [id number] [place]ENT[place] [id number] Sep, Dental examination Z01.20 [facility] [address]00565100[place], [place] [id number] Sep, Lumbago with sciatica, left side M54.42 and Insomnia, unspecified type G47.00 [facility] [address]00565100[place], [place] [id number] Sep, RLS (restless legs syndrome) G25.81 [facility] [address] [facility] [id number], [place] 59176781- [address] Aug, [facility] [address]00565100[place], [place] [id number] Aug, [facility] [place] [id number] [place] [address] Aug Insomnia, unspecified type G47.00 [facility] [address] [facility] [address] [id number] [place] [id number] Aug, Dental examination Z01.20 [facility] [address]00565100[place], [place] [id number] Aug, Vaginal discharge N89.8 [facility] [id number], [place] [id number] Aug, RLS (restless legs syndrome) G25.81 [facility] [address]FF[address] [id number] [place] [id number] Aug, Dental examination Z01.20 [facility] [address]UFFIN[address] [id number] [place] [id number] Jul, Dental examination Z01.20 [facility] [id number], [place] [id number] Jul, Lumbago with sciatica, left side M54.42 ; RLS (restless legs syndrome) G25.81 ; Moderate persistent asthma without complication J45.40 and Other specified hypothyroidism E03.8 [facility] [place] [id number], [place] [id number] Jul, Insomnia, unspecified type G47.00 and Lumbago with sciatica, left side M54.42 [facility] [address] [id number] [place] [id number] Jul, Dental examination Z01.20 [facility] ARNOLDRUFFIN[address]00565100[place] [id number] May, Dental examination Z01.20 and Dental caries K02.9 [facility] [address] [facility] [id number], [place] [id number] May, [place] [id number] [place] [address] [id number] May, RLS (restless legs syndrome) G25.81 [facility] [address] [facility] [id number], [place] [id number] May, Lumbago with sciatica, left side M54.42 ; Insomnia, unspecified type G47.00 and RLS (restless legs syndrome) G25.81 [facility] [address] [facility] [id number], [place] [id number] Apr, Muscle spasms of both lower extremities M62.838 ; Constipation, unspecified constipation type K59.00 and Insomnia, unspecified type G47.00 [facility] [id number], [place] [id number] Apr, [facility] [id number] [place] [address] [id number] Apr, Anxiety F41.9 and Lumbago with sciatica, left side M54.42 [facility] [address]00565100[place] [id number] Mar, Encounter for dental examination and cleaning without abnormal findings Z01.20 [facility] [id number], [place] [id number] Mar, Muscle cramp, nocturnal R25.2 [facility] [id number] [place] [address] [id number] Mar, RLS (restless legs syndrome) G25.81 ; Anxiety F41.9 ; Lumbago with sciatica, left side M54.42 ; Insomnia, unspecified type G47.00 and Muscle cramps R25.2 [facility] [address]00565100[place] [address] Mar, [facility] [id number] [place] [address] [id number] Feb, [facility] [id number] [place] [address] [id number] Feb, [facility] [id number] [place] [address] [id number] Jan, [facility] [id number] [place] [address] [id number] Jan, Moderate persistent asthma without complication J45.40 [facility] [id number] [place] [address] [id number] Jan, [facility] [id number] [place] [address] [id number] Jan, [facility] [id number] [place] [address] [id number] Jan, [facility] [id number] [place] [address] [id number] Jan, [facility] [address] [id number], [place] [id number] Dec, [facility] [address]00565100[place], [place] [phone]- [address]98 Dec, [facility] [address] [id number], [place] [id number] Nov, [facility] [address] [id number], [place] [id number] Nov, [facility] [place] [address] [id number] [place] [id number] Nov, Dental examination Z01.20 [facility] [address] [id number], [place] [id number] Nov, Bipolar depression F31.30 [facility] [address] [id number], [place] [id number] Nov, Lumbago with sciatica, left side M54.42 ; Allergic rhinitis, unspecified allergic rhinitis type J30.9 ; Bipolar depression F31.30 ; Moderate persistent asthma without complication J45.40 ; Encounter for immunization Z23 ; Abdominal spasms R10.9 and Benign essential hypertension I10 [facility] [address] [id number], [place] [id number] Nov, [facility] [address] [id number], [place] [id number] Oct, [facility] [address] [id number], [place] [id number] Oct, [facility] [address] [id number], [place] [id number] Sep, [facility] [address] [id number], [place] [id number] Sep, [facility] [address] [id number], [place] [id number] Sep, [facility] ZUNIGA [address] [place] [place], [place] [address]E [id number] [place] [address] Sep [facility] [address] [id number], [place] [id number] Aug, [facility] [address] [id number], [place] [id number] Aug, Dental examination Z01.20 [facility] [address] [facility] [place] [id number], [place] [id number] Aug, [facility] Christianson[address] [place] [address] [id number] [place] [id number] Aug, [facility] [address] [place] [id number], [place] [id number] Jul, Allergic rhinitis, unspecified allergic rhinitis type J30.9 ; RLS ( restless legs syndrome) G25.81 ; Lumbago with sciatica, left side M54.42 and Other chronic pain G89.29 [address] [place] [address] [id number] Jul, Allergic rhinitis, unspecified allergic rhinitis type J30.9 and RLS ( restless legs syndrome) G25.81 [address]00565100[place], [place] [id number] Jul, [place] [id number] [place] [address] [id number] June, Hypo-osmolality and hyponatremia E87.1 and Benign essential hypertension I10 [address]00565100[place], [place] [id number] June, [address] [place] [address] [id number] June, Moderate persistent asthma without complication J45.40 ; RLS (restless legs syndrome) G25.81 ; Benign essential hypertension I10 ; Anxiety F41.9 and Constipation, unspecified constipation type K59.00 [facility] Christianson[address] [place], [place] [address]E [id number] [place] [id number] June, Encounter for dental examination and cleaning without abnormal findings Z01.20 [facility] [place] Sammy[address] [place] [address] [id number] [place] [id number] June, [place] [id number], [place] [id number] June, [address]00565100[place], [place] [id number] June, [facility] [address] [id number] [place] [id number] May, [facility] [address] [id number] [place] [id number] May, [facility] [address] [id number] [place] [id number] May, [facility] [address] [id number] [place] [id number] May, [facility] [address] [id number] [place] [id number] Apr, [facility] [address] [id number] [place] [id number] Apr, Anxiety F41.9 [facility] [address] [id number] [place] [id number] Apr, [facility] [address] [id number] [place] [id number] Mar, [facility] [address] [id number] [place] [id number] Mar, [facility] [address] [id number] [place] [id number] Mar, [facility] [address] [id number] [place] [id number] Mar, RLS (restless legs syndrome) G25.81 ; Anxiety F41.9 and Moderate persistent asthma without complication J45.40 [facility] [address] [id number] [place] [id number] Mar, [facility] [address] [id number], [place] [id number] Mar, [facility] [address] [id number] [place] [id number] Feb, [facility] [address] [id number], [place] [id number] Feb, [facility] [address] [id number], [place] [id number] Feb, [facility] [address] [id number] [place] [id number] Feb, Encounter for dental examination Z01.20 [facility] [address] [place] [address] [id number], [place] [id number] Feb, [facility] [id number] [place] [address] [id number] Jan, [facility] [id number], [place] [id number] Jan, Benign essential hypertension I10 [facility] [id number] [place] [address] [id number] Jan, RLS (restless legs syndrome) G25.81 and Gastroesophageal reflux disease, esophagitis presence not specified K21.9 [facility] [id number] [place] [address] [id number] Jan, [facility] [id number] [place] [address] [id number] Jan, [facility] [id number] [place] [address] [id number] Dec, Anxiety F41.9 ; Benign essential hypertension I10 and RLS (restless legs syndrome) G25.81 [facility] [id number], [place] [id number] Dec, RLS (restless legs syndrome) G25.81 ; Esophageal reflux 530.81 and Anxiety F41.9 [facility] [address] [id number] [place] [id number] Dec, [facility] [id number], [place] [id number] Nov, Anxiety F41.9 [facility] [address]00565100[place], [place] [id number] Nov, Anxiety F41.9 ; Encounter for immunization Z23 ; Benign essential hypertension I10 ; RLS (restless legs syndrome) G25.81 and Rhinitis J31.0 [facility] [address] [place] [id number], [place] 98854410- 1683 Nov, [facility] [address] [id number], [place] [id number] Nov, [facility] [address] [address] [id number] [place] [id number] Nov, [facility] [place] [place] [address] [facility] [id number], [place] [id number] Nov, [place] [address] [facility] [id number], [place] [id number] Nov, [facility] [address] [id number] [place] [id number] Oct, [facility] [address] [facility] [id number], [place] [id number] Oct, [facility] [place] [place] [address] [id number], [place] [id number] Oct, [facility] [id number], [place] [id number] Oct, Esophageal reflux 530.81 ; Asthma, unspecified, unspecified status 493.90 and Essential hypertension, benign 401.1 [facility] [address] [id number], [place] [id number] Oct, [facility] [address] [id number], [place] [id number] Oct, [facility] [place] [id number] [place] [address] [id number] Oct, [facility] [address] [id number], [place] 868391095 Sep, [facility] [address] [id number], [place] [id number] Sep, Esophageal reflux 530.81 ; Insomnia 780.52 and Essential hypertension, benign 401.1 [facility] [address] [id number], [place] 819995005 Sep, [facility] [address] [id number], [place] 159774805 Sep, [facility] [address] [id number], [place] 025706915 Sep, [facility] [address] [id number], [place] [id number] Sep, [facility] [address] [id number], [place] [id number] Sep, [facility] [address] [id number], [place] 088596035 Sep, [facility] [address] [id number], [place] [id number] Sep, [facility] [address] [id number] [place] [id number] Sep, Essential hypertension, benign 401.1 ; Hyponatremia 276.1 and 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 [facility] [address] [id number], [place] [id number] Sep, [facility] [id number] [place] [address] [id number] Aug, [facility] [address] [id number] [place] [address] [id number] Aug, [facility] [address] [id number] [place] [address] [id number] Jul, [facility] [address] [id number] [place] [address] [id number] Jul, [facility] [address] [id number], [place] [id number] Jul, [facility] [address] [id number], [place] [id number] Jul, [facility] [address] [id number], [place] [id number] Jul, [facility] [address] [id number], [place] 004651919 Jul, Insomnia 780.52 [facility] [address] [id number], [place] [id number] June, Muscle stiffness 728.9 and Insomnia 780.52 [facility] [address] [id number][place] [id number] June, [facility] [address] [id number][place] [id number] June, [facility] [address] [id number][place] [id number] June, [facility] [address] [id number][place] [id number] June, [facility] [address] [id number][place] [id number] May, [facility] [place] [facility] [address] [facility] [id number] [place] [address] May, [facility] [place] [facility] [address] [facility] [id number], [place] [address] May, [facility] [address] [facility] [id number][place] [id number] Apr, [facility] [place] [facility] [address] [facility] [id number], [place] [address] Apr, [facility] [address] [id number], [place] [id number] Apr, [facility] [place] [facility] [id number], [place] [address] Apr, [facility] [place] [facility] [id number], [place] [address] Apr, [facility] [place] [facility] [id number], [place] [address] Apr, [facility] [address] [facility] [id number], [place] [id number] Apr, [facility] [place] [facility] [id number], [place] [address] Apr, [facility] [address] [facility] [id number], [place] [id number] Mar, [facility] [place] [facility] [address] [facility] [id number], [place] [address] Mar, [facility] [address] [id number], [place] [id number] Mar, [facility] [place] [facility] [address] [facility] [id number], [place] [address] Mar, [facility] [address] [facility] [id number], [place] [id number] Mar, [facility] [place] [facility] [id number], [place] [address] Mar, [facility] [place] [facility] [address] [id number], [place] [address] Mar, [facility] [address] [facility] [id number] [place] [id number] Feb, [facility] [place] [facility] [address] [facility] [id number], [place] [address] Feb, [facility] [address] [id number] [place] [id number] Feb, [facility] [address] [id number] [place] [id number] Feb, [facility] [address] [facility] [id number] [place] [id number] Feb, [facility] [place] [facility] [address] [facility] [id number], [place] [address] Feb, [facility] [place] [facility] [address] [facility] [id number], [place] [address] Feb, [facility] [place] [facility] [address] [facility] [id number], [place] [address] Feb, [facility] [address] [facility] [id number][place] [id number] Feb, [facility] [place] [facility] [address] [facility] [id number], [place] [address] Feb, [facility] [address] [facility] [id number], [place] [id number] Feb, [facility] [place] [facility] [address] [facility] [id number], [place] [address] Feb, [facility] [address] [facility] [id number], [place] [address] Jan, [facility] [address] [facility] [id number] [place] [id number] Jan, [facility] [address] [facility] [id number], [place] [address] Jan, [facility] [address] [facility] [id number] [place] [id number] Jan, [facility] [id number] [address] Jan, [facility] [address] [facility] [id number][place] [id number] Jan, [facility] [id number], [place] [address] Jan, [facility] [id number] [address] Jan, [facility] [address] [facility] [place] [id number][place] [id number] Jan, [facility] [id number] [address] Jan, [facility] [id number], [place] [address] June, IMMUNIZATIONS No Known Immunizations SOCIAL HISTORY Never Assessed REASON FOR VISIT restorative PLAN OF CARE VITAL SIGNS Blood pressure systolic 143 mmHg 2016-08-14 Blood pressure diastolic 78 mmHg 2016-08-14 MEDICATIONS Medication Instructions Dosage Frequency Start Date End Date Duration Status Prilosec 40 mg Orally Once a day 1 capsule 24h Nov, Active Dicyclomine HCl 10 mg Orally 3 times a day before meals 1 tablet Nov, Active Gabapentin 300 MG Orally 3 times a day 1 tablet 8h Active Levothyroxine Sodium 50 MCG TAKE ONE (1) TABLET BY MOUTH DAILY... Active Clonazepam 0.5 MG Orally Once a day at HS, PRN for RLS. Must last one month 1 tablet Jul, Active Zyrtec Allergy 10 mg Orally Once a day 1 tablet as needed 24h 90 Active Flonase 50 MCG/ACT Nasally 2 times a day 1 spray in each nostril 12h Active Imdur 30 MG Orally Once a day 1 tablet 24h Sep, Active Prilosec 40 mg Orally Once a day 1 capsule 24h Active Gabapentin 800 MG Orally Once a day 1 tablet 24h Active Zyprexa 20 MG TAKE ONE (1) TABLET BY MOUTH DAILY... Active Lamictal 100 MG TAKE ONE (1) TABLET BY MOUTH DAILY... Active Hydrochlorothiazide 25 MG Orally Once a day 1 tablet 24h Active Premarin 0.9 MG TAKE ONE (1) TABLET BY MOUTH ONCE DAILY. 90 Active Singulair 10 MG Orally Once a day 1 tablet in the evening 24h Active HydrOXYzine HCl 25 MG TAKE (1) TABLET BY MOUTH 3 TIMES DAILY. Active Patanol 0.1 % Ophthalmic Twice a day 1 drop into affected eye 12h 20 Jul, 2015 Active Zolpidem Tartrate 10 mg Orally Once a day must last 1 m 1 tablet at bedtime as needed Active Tramadol HCl 50 mg Orally 2 times a day must last 1 month 1 tablet Active Symbicort 80-4.5 MCG/ACT Inhalation Twice a day 2 puffs 12h Active ProAir HFA 108 (90 Base) MCG/ACT INHALE (2) PUFFS BY MOUTH (4) TIMES DAILY NEEDED FOR SHORTNESS OF BREATH/WHEEZING. Active Ibuprofen 800 MG Orally Three times a day as needed 1 tablet Active RESULTS No Results PROCEDURES Procedure Date Ordered Result Body Site RESIN COMPOS - 2 SURFACES ANTERIOR August 14, 2016 RESIN COMPOS - 2 SURFACES ANTERIOR August 14, 2016 Billing Notes on claim August 14, 2016 INSTRUCTIONS MEDICATIONS ADMINISTERED No Known Medications [...] Surgical History Esophagus stretched 2017 Hospitalization History [facility] for hyponatremia, change in mental status, angioedema 09/2014
--- OUTSIDE RECORDS SUMMARY | 2017-08-27 16:46 | XMS REPORT ---
Author Author AIMEE LING Organization eClinical[employer] Address Unknown Phone Unavailable Care Team Providers Care Manganese Breaker Name Role Phone AIMEE LING CP Unavailable [...] Start Date End Date Status Dosage Premarin [facility] [address]-45 0.9 MG Orally Once a day Jan 14, 2014 1 tablet HydrOXYzine HCl [facility] [address]-03 25 MG Orally 3 times a day Nov 20, 2014 1 tablet as needed MiraLax [facility] [address]-25 17 gram/dose Orally Once a day April 29, 2014 1 packet mixed with 8 ounces of fluid Results No Known Results Summary Purpose eClinicalWorks Submission
--- OUTSIDE RECORDS SUMMARY | 2017-08-27 16:46 | XMS REPORT ---
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 Active 11419474 Problem Muscle spasms of both lower extremities M62.838 Active 872452279 Problem Bipolar depression F31.30 Active 98503600 Problem Lumbago with sciatica, left side M54.42 Active 057576342 Problem Insomnia, unspecified type G47.00 Active 301328150 Problem Abdominal spasms R10.9 Active 46118239 Problem Insomnia 780.52 Active 874457686 Problem 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 36672389 Problem Benign essential hypertension I10 Active 7730835 Problem Anxiety F41.9 Active 88971046 Problem Hyponatremia 276.1 Active 61916819 Problem Gastroesophageal reflux disease, esophagitis presence not specified K21.9 Active 938140332 Problem RLS (restless legs syndrome) G25.81 Active 13700052 Problem Moderate persistent asthma without complication J45.40 Active 098918858 ALLERGIES Substance Reaction Event Type Date Status Lyrica hives Drug Allergy Mar, Active Advair Diskus facial swelling Drug Allergy Mar, Active SOCIAL HISTORY Never Assessed PLAN OF CARE Activity Details Follow Up 4 Weeks Reason:leg cramping VITAL SIGNS Height 63 in 2016-04-03 Weight 176 lbs 2016-04-03 Temperature 98.0 degrees Fahrenheit 2016-04-03 Heart Rate 72 bpm 2016-04-03 Respiratory Rate 16 2016-04-03 BMI 31.17 kg/m2 2016-04-03 Blood pressure systolic 120 mmHg 2016-04-03 Blood pressure diastolic 70 mmHg 2016-04-03 MEDICATIONS Medication Instructions Dosage Frequency Start Date End Date Duration Status Zolpidem Tartrate 10 mg Orally Once a day must last 1 m 1 tablet at bedtime as needed Active Premarin 0.9 MG TAKE ONE (1) TABLET BY MOUTH ONCE DAILY. 90 Active Zyrtec Allergy 10 mg Orally Once a day 1 tablet as needed 24h 90 Active ProAir HFA 108 (90 Base) MCG/ACT INHALE (2) PUFFS BY MOUTH (4) TIMES DAILY NEEDED FOR SHORTNESS OF BREATH/WHEEZING. Active Ibuprofen 800 MG Orally Three times a day as needed 1 tablet Active MiraLax 17 gram/dose Orally Once a day 1 packet mixed with 8 ounces of fluid 24h Apr, Active Imdur 30 MG Orally Once a day 1 tablet 24h Sep, Active Zyprexa 20 MG TAKE ONE (1) TABLET BY MOUTH DAILY... 30 Active Symbicort 80-4.5 MCG/ACT Inhalation Twice a day 2 puffs 12h June, Active Singulair 10 MG Orally Once a day 1 tablet in the evening 24h Active Prilosec 40 mg Orally Once a day 1 capsule 24h Nov, Active Flonase 50 MCG/ACT Nasally 2 times a day 2 spray in each nostril 12h Nov Active Dicyclomine HCl 10 mg Orally 3 times a day before meals 1 tablet Nov, Active Gabapentin 300 MG Orally 1 tab in am and 1 tab at midday 1 Tablet Active Levothyroxine Sodium 50 MCG TAKE ONE (1) TABLET BY MOUTH DAILY... Active Lamictal 100 MG TAKE ONE (1) TABLET BY MOUTH DAILY... Active Gabapentin 800 MG Orally Once a day at bedtime 1 tablet Active Hydrochlorothiazide 25 MG Orally Once a day 1 tablet 24h Dec, Active Tramadol HCl 50 mg Orally 2 times a day 1 tablet 12h Active Clonazepam 0.5 MG Orally Once a day at HS, PRN for RLS. Must last one month 1 tablet Jul, Active HydrOXYzine HCl 25 MG Orally 3 times a day 1 tablet as needed 8h Active RESULTS No Results PROCEDURES No [...]
--- OUTSIDE RECORDS SUMMARY | 2017-08-27 16:46 | XMS REPORT ---
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 Active 08948965 Problem Muscle spasms of both lower extremities M62.838 Active 741906295 Problem Bipolar depression F31.30 Active 51720877 Problem Lumbago with sciatica, left side M54.42 Active 324377243 Problem Insomnia, unspecified type G47.00 Active 414103237 Problem Abdominal spasms R10.9 Active 22602532 Problem Insomnia 780.52 Active 450188133 Problem 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
--- OUTSIDE RECORDS SUMMARY | 2017-08-27 16:46 | XMS REPORT ---
Author Author AIMEE LING [facility] eClinicalWorks Address Unknown Phone Unavailable Care Team Providers Care Payroll Tax Analyst Name Role Phone AIMEE LING CP [...] Start Date End Date Status Dosage MiraLax [facility] [address]-14 17 gram/dose Orally Once a day April 29, 2014 1 packet mixed with 8 ounces of fluid Results No Known Results Summary Purpose eClinicalWorks Submission
--- OUTSIDE RECORDS SUMMARY | 2017-08-27 16:46 | XMS REPORT ---
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 Active 77145030 Problem Muscle spasms of both lower extremities M62.838 Active 732085429 Problem Bipolar depression F31.30 Active 04692712 Problem Lumbago with sciatica, left side M54.42 Active 792573703 Problem Insomnia, unspecified type G47.00 Active 455476535 Problem Abdominal spasms R10.9 Active 25343027 Problem Insomnia 780.52 Active 459248497 Problem 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 48447133 Problem Benign essential hypertension I10 Active 3931141 Problem Anxiety F41.9 Active 90408251 Problem Hyponatremia 276.1 Active 89528954 Problem Gastroesophageal reflux disease, esophagitis presence not specified K21.9 Active 002089633 Problem RLS (restless legs syndrome) G25.81 Active 28063625 Problem Moderate persistent asthma without complication J45.40 Active 936731151 ALLERGIES Unknown Allergies SOCIAL HISTORY No smoking Hx information available PLAN OF CARE VITAL SIGNS MEDICATIONS Medication Instructions Dosage Frequency Start Date End Date Duration Status Zolpidem Tartrate 10 mg Orally Once a day must last 1 m 1 tablet at bedtime as needed Active RESULTS No Results PROCEDURES No Known procedures IMMUNIZATIONS No Known Immunizations
--- OUTSIDE RECORDS SUMMARY | 2017-08-27 16:46 | XMS REPORT ---
Author Author AIMEE LING Organization eClinicalWorks Address Unknown Phone Unavailable Care Team Providers Care Project Manager Senior Name Role Phone AIMEE LING CP Unavailable [...] Date End Date Status Dosage Zolpidem Tartrate [facility] [address]-61 10 MG Orally Once a day must last 1 m 1 tablet at bedtime as needed Results No Known Results Summary Purpose eClinicalWorks Submission
--- OUTSIDE RECORDS SUMMARY | 2017-08-27 16:46 | XMS REPORT ---
Author Author AIMEE LING Organization eClinicalWorks Address Unknown Phone Unavailable Care Team Providers Care Union Organizer Name Role Phone AIMEE LING CP Unavailable [...]
--- OUTSIDE RECORDS SUMMARY | 2017-08-27 16:46 | XMS REPORT ---
Author Author AIMEE LING Organization eClinicalWorks Address Unknown Phone Unavailable Care Team Providers Care Shade Hanger Name Role Phone AIMEE LING CP [...] Date End Date Status Dosage Levothyroxine Sodium [facility] [address]-79 50 MCG Orally Once a day 1 tablet Results No Known Results Summary Purpose eClinicalWorks Submission
--- OUTSIDE RECORDS SUMMARY | 2017-08-27 16:47 | XMS REPORT ---
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 Medications Medication Code System Code Instructions Start Date End Date Status Dosage Levothyroxine Sodium [facility] 38661308399 50 MCG Orally Once a day 1 tablet Ibuprofen [facility] 07815148028 800 MG Orally Three times a day as needed 1 tablet Imdur [facility] [address]-92 30 MG Orally Once a day Oct 08, 2014 1 tablet Premarin [facility] 52315546439 0.9 MG Orally Once a day 1 tablet Singulair [facility] 94728226093 10 MG Orally Once a day 1 tablet in the evening ProAir HFA [facility] [address]-74 108 (90 Base) MCG/ACT Inhalation 4 times a day for wheezing or SOB Oct 21, 2014 2 puffs as needed Clonazepam [facility] [address]-42 0.5 MG Orally Once a day at HS, PRN for RLS. Must last one month August 04, 2014 1 tablet Zolpidem Tartrate [facility] [address]-20 10 MG Orally Once a day must last 1 m 1 tablet at bedtime as needed MiraLax [facility] [address]-46 17 gram/dose Orally Once a day April 29, 2014 1 packet mixed with 8 ounces of fluid Gabapentin [facility] [address]-42 300 MG Orally 1 tab in am and 1 tab midday, 3 tabs at hs Mar 04, 2014 1-3 Tablet Patanol [facility] [address]-39 0.1 % Ophthalmic Twice a day August 02, 2015 1 drop into affected eye HydrOXYzine HCl [facility] 74639652588 25 MG Orally 3 times a day 1 tablet as needed Flonase [facility] [address]-16 50 MCG/ACT Nasally 2 times a day Nov 30, 2014 2 spray in each nostril Protonix [facility] [address]-30 40 MG Orally Once a day 1 tablet Lamictal [facility] [address]-78 100 MG Orally Once a day Sep 24, 2014 1 tablet Symbicort [facility] [address]-98 80-4.5 MCG/ACT Inhalation Twice a day July 05, 2015 2 puffs Zyrtec Allergy [facility] 58809322030 10 mg Orally Once a day 1 tablet as needed Lisinopril-Hydrochlorothiazide [facility] 01433304336 20-12.5 MG Orally Once a day 1 tablet Zyprexa [facility] [address]-91 20 mg Orally Once a day Jan 29, 2014 1 tablet Tramadol HCl [facility] [address]-18 50 mg Orally 2 times a day August 11, 2015 1 tablet as needed Procedures Procedure Coding System Code Date INTRAORL-PERIAPICAL 1 FILM 18423 CPT-4 D0220 September 08, 2015 RESIN COMPOS - 3 SURFACES ANTERIOR CPT-4 D2332 September 08, 2015 LTD ORAL EVALUATION - PROBLEM FOCUS CPT-4 D0140 September 08, 2015 RESIN COMPOS - 3 SURFACES ANTERIOR CPT-4 D2332 September 08, 2015 Vital Signs Date/Time: September 08, 2015 Blood Pressure Diastolic 63 mmHg Blood Pressure Systolic 111 mmHg Height 63 in Results No Known Results Summary Purpose eClinicalWorks Submission
--- OUTSIDE RECORDS SUMMARY | 2017-08-27 16:47 | XMS REPORT ---
Author Author AIMEE LING [facility] eClinicalWorks Address Unknown Phone Unavailable Care Team Providers Care Digital Asset Coordinator Name Role Phone AIMEE LING CP [...] Assessment Essential hypertension, benign 401.1 Active Assessment Insomnia 780.52 Active Assessment Esophageal reflux 530.81 Active Problem Contact dermatitis and other eczema, due to unspecified cause 692.9 Active Medications Medication Code System Code Instructions Start Date End Date Status Dosage Zyprexa [facility] [address]-81 20 MG Orally Once a day Jan 29, 2014 1 tablet Ambien [facility] [address]-36 5 MG Orally Once a day. Must last one month April 17, 2014 1 Tablet Levothyroxine Sodium [facility] [address]-48 50 MCG Orally Once a day 1 tablet Imdur [facility] [address]-91 30 MG Orally Once a day Oct 08, 2014 1 tablet Lamictal [facility] [address]-51 100 MG Orally Once a day Sep 24, 2014 1 tablet Advair Diskus [facility] [address]-69 250-50 MCG/DOSE Inhalation Twice a day Mar 03, 2014 inhale 1 puff Omeprazole [facility] [address]-09 40 mg Feb 25, 2014 1 Capsule by Oral route 1 time per day Clonazepam [facility] [address]-47 0.5 MG Orally Once a day at HS, PRN for RLS. Must last one month August 04, 2014 0.5 tablet tramadol NDC 0 50 mg orally 3 times a day prn. Must last 1 mo. April 29, 2014 1 Tablet Premarin [facility] [address]-49 0.9 MG Orally Once a day Jan 14, 2014 1 tablet Gabapentin [facility] [address]-73 600 MG Orally Once a day at bedtime Mar 04, 2014 1 Tablet Zolpidem Tartrate [facility] [address]-60 10 MG Orally Once a day must last 1 m 1 tablet at bedtime as needed BusPIRone HCl [facility] [address]-79 15 mg Orally Three times a day June 09, 2014 0.5 tablet Procedures Procedure Coding System Code Date Office Visit, Est Pt., Level 3 CPT-4 07394 Oct 08, 2014 Vital Signs Date/Time: Oct 08, 2014 Temperature 97.9 F Weight 191.2 lbs Height 63 in BMI 33.87 Index Blood Pressure Diastolic 88 mmHg Blood Pressure Systolic 170 mmHg Cardiac Monitoring Heart Rate 88 bpm Results No Known Results Summary Purpose eClinicalWorks Submission
--- OUTSIDE RECORDS SUMMARY | 2017-08-27 16:47 | XMS REPORT ---
Author Author JED LITTLEJOHN eClinicalWorks Address Unknown Phone Unavailable Care Team Providers Care Test Tech Name Role Phone JED LITTLEJOHN CP Unavailable Allergies, Adverse Reactions, Alerts Substance [...] associated with 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 Active Assessment Dental examination Z01.20 Active Problem Hyponatremia 276.1 Active Problem Bipolar disorder, unspecified 296.80 Active Problem RLS (restless legs syndrome) G25.81 Active Medications Medication Code System Code Instructions Start Date End Date Status Dosage HydrOXYzine HCl [facility] 63116491357 25 MG Orally 3 times a day 1 tablet as needed Zolpidem Tartrate [facility] [address]-30 10 mg Orally Once a day must last 1 m 1 tablet at bedtime as needed Prinzide [facility] 11046146620 20-12.5 MG TAKE ONE (1) TABLET BY MOUTH ONCE DAILY. MiraLax [facility] [address]-63 17 gram/dose Orally Once a day April 29, 2014 1 packet mixed with 8 ounces of fluid Gabapentin [facility] 47255046644 300 MG Orally 1 tab in am and 1 tab at midday 1 Tablet Symbicort [facility] [address]-42 80-4.5 MCG/ACT Inhalation Twice a day July 05, 2015 2 puffs Flonase [facility] [address]-67 50 MCG/ACT Nasally 2 times a day Nov 30, 2014 2 spray in each nostril Dicyclomine HCl [facility] [address]-47 10 mg Orally 3 times a day before meals Dec 01, 2015 1 tablet Lisinopril-Hydrochlorothiazide [facility] 34626494697 20-12.5 MG Orally Once a day 1 tablet ProAir HFA [facility] 72376529581 108 (90 Base) MCG/ACT Inhalation 4 times a day for wheezing or SOB 2 puffs as needed Levothyroxine Sodium [facility] 44613455102 50 MCG Orally Once a day 1 tablet Zyprexa [facility] [address]-33 20 mg Orally Once a day Jan 29, 2014 1 tablet Clonazepam [facility] [address]-31 0.5 MG Orally Once a day at HS, PRN for RLS. Must last one month August 04, 2014 1 tablet Singulair [facility] 64687941286 10 MG Orally Once a day 1 tablet in the evening Tramadol HCl [facility] [address]-98 50 mg Orally 2 times a day August 11, 2015 1 tablet as needed Premarin [facility] 50582569593 0.9 MG Orally Once a day 1 tablet Protonix [facility] [address]-03 40 MG Orally Once a day 1 tablet Zyrtec Allergy [facility] 97747655728 10 mg Orally Once a day 1 tablet as needed Lamictal [facility] [address]-14 100 MG Orally Once a day Sep 24, 2014 1 tablet Ibuprofen [facility] 13044182937 800 MG Orally Three times a day as needed 1 tablet Imdur [facility] [address]-40 30 MG Orally Once a day Oct 08, 2014 1 tablet Gabapentin [facility] [address]-53 800 MG Orally Once a day at bedtime Nov 22, 2015 1 tablet Patanol [facility] [address]-21 0.1 % Ophthalmic Twice a day August 02, 2015 1 drop into affected eye Procedures Procedure Coding System Code Date RESIN COMPOS - 2 SURFACES POSTERIOR CPT-4 D2392 Dec 06, 2015 Billing Notes on claim CPT-4 EC109 Dec 06, 2015 RESIN COMPOS - 1 SURFACE POSTERIOR CPT-4 D2391 Dec 06, 2015 Vital Signs Date/Time: Dec 06, 2015 Blood Pressure Diastolic 69 mmHg Blood Pressure Systolic 121 mmHg Results No Known Results Summary Purpose eClinicalWorks Submission
--- OUTSIDE RECORDS SUMMARY | 2017-08-27 16:48 | XMS REPORT | Continuity of Care Document ---
Author Author [facility] Address Unknown Phone Unavailable Allergies Active Description Code Type Severity Reaction Onset Reported/Identified Relationship to Patient Clinical Status Yes NKANo Known Allergies NKA Miscellaneous Allergy Unknown N/A 11/27/2005 Yes Lyrica Drug Allergy N/A N/A 01/14/2014 Yes pregabalin [id number] Drug Allergy Unknown HIVES 09/17/2014 Medications There is no data. Problems Date Dx Coded Attending Type Code Diagnosis Diagnosed By 01/14/2014 STEVEN FRANCES DO 296.80 BIPOLAR DISORDER UNSPECIFIED 01/14/2014 STEVEN FRANCES DO 401.1 HYPERTENSION, BENIGN ESSENTIAL 01/14/2014 STEVEN FRANCES DO 493.90 ASTHMA UNSPECIFIED 01/14/2014 STEVEN FRANCES DO 530.81 GERD 01/14/2014 STEVEN FRANCES DO V04.81 FLU SHOT 01/14/2014 STEVEN FRANCES DO 296.80 BIPOLAR DISORDER UNSPECIFIED 01/14/2014 STEVEN FRANCES DO 401.1 HYPERTENSION, BENIGN ESSENTIAL 01/14/2014 STEVEN FRANCES DO 493.90 ASTHMA UNSPECIFIED 01/14/2014 STEVEN FRANCES DO 530.81 GERD 01/14/2014 STEVEN FRANCES DO V04.81 FLU SHOT 01/14/2014 AIMEE LING APRN 296.80 BIPOLAR DISORDER UNSPECIFIED 01/14/2014 AIMEE LING APRN 401.1 HYPERTENSION, BENIGN ESSENTIAL 01/14/2014 AIMEE LING APRN 493.90 ASTHMA UNSPECIFIED 01/14/2014 AIMEE LING APRN 530.81 GERD 01/14/2014 AIMEE LING APRN V04.81 FLU SHOT 02/09/2014 STEVEN FRANCES DO 692.9 DERMATITIS CONTACT UNSPECIFIED 02/09/2014 AIMEE LING APRN 692.9 DERMATITIS CONTACT UNSPECIFIED 04/29/2014 AIMEE LING APRN 333.94 RESTLESS LEGS SYNDROME (RLS) 04/29/2014 AIMEE ILNG APRN 564.00 CONSTIPATION 09/17/2014 Ot 298.9 09/17/2014 Ot 780.93 09/17/2014 Ot 298.9 09/17/2014 Ot 780.93 09/18/2014 MARCIANO DUDLEY, LAURA Melton Ot 244.9 09/18/2014 MARCIANO DUDLEY, LAURA F Ot 276.1 09/18/2014 MARCIANO DUDLEY, LAURA F Ot 296.80 09/18/2014 MARCIANO DUDLEY, LAURA F Ot 300.00 09/18/2014 MARCIANO DUDLEY, LAURA F Ot 401.9 09/18/2014 MARCIANO DUDLEY, LAURA F Ot 493.90 09/18/2014 MARCIANO DUDLEY, LAURA F Ot 530.81 09/18/2014 MARCIANO DUDLEY, LAURA F Ot 780.97 09/18/2014 MARCIANO DUDLEY, LAURA Melton Ot 784.2 09/18/2014 MARCIANO DUDLEY, LAURA Melton Ot 995.1 02/16/2016 FRANCINE, BOBAN N Ot D47.2 MONOCLONAL GAMMOPATHY 03/02/2016 FRANCINE, BOBAN N Ot D47.2 MONOCLONAL GAMMOPATHY 03/02/2016 FRANCINE, BOBAN N Ot D47.2 MONOCLONAL GAMMOPATHY 05/09/2016 FRANCINE, BOBAN N Ot D47.2 MONOCLONAL GAMMOPATHY 05/13/2016 FRANCINE, BOBAN N Ot D47.2 MONOCLONAL GAMMOPATHY 05/13/2016 FRANCINE, BOBAN N Ot I10 ESSENTIAL (PRIMARY) HYPERTENSION 05/13/2016 FRANCINE BOBAN N Ot 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 05/15/2016 FRANCINE, BOBAN N Ot D47.2 MONOCLONAL GAMMOPATHY 05/15/2016 FRANCINE, BOBAN N Ot I10 ESSENTIAL (PRIMARY) HYPERTENSION 05/15/2016 FRANCINE, BOBAN N Ot Z79.899 OTHER CUSTODIAL (CURRENT) DRUG THERAPY 07/14/2016 FRANCINE, BOBAN N Ot D47.2 MONOCLONAL GAMMOPATHY 07/14/2016 FRANCINE, BOBAN N Ot K13.0 DISEASES OF LIPS 07/14/2016 FRANCINE, BOBAN N Ot M54.6 PAIN IN THORACIC SPINE 07/14/2016 FRANCINE, BOBAN N Ot 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 07/28/2016 FRANCINE, BOBAN N Ot D47.2 MONOCLONAL GAMMOPATHY 07/28/2016 FRANCINE, BOBAN N Ot M54.9 DORSALGIA, UNSPECIFIED 07/28/2016 FRANCINE, BOBAN N Ot Z78.0 ASYMPTOMATIC MENOPAUSAL STATE 08/02/2016 FRANCINE, BOBAN N Ot D47.2 MONOCLONAL GAMMOPATHY 08/02/2016 FRANCINE, BOBAN N Ot M54.9 DORSALGIA, UNSPECIFIED 08/02/2016 FRANCINE, BOBAN N Ot Z78.0 ASYMPTOMATIC MENOPAUSAL STATE 08/02/2016 FRANCINE, BOBAN N Ot D47.2 MONOCLONAL GAMMOPATHY 08/02/2016 FRANCINE, BOBAN N Ot M54.9 DORSALGIA, UNSPECIFIED 08/02/2016 FRANCINE, BOBAN N Ot Z78.0 ASYMPTOMATIC MENOPAUSAL STATE 08/29/2016 FRANCINE, BOBAN N Ot D47.2 MONOCLONAL GAMMOPATHY 08/29/2016 FRANCINE BOBAN N Ot K13.0 DISEASES OF LIPS 08/29/2016 FRANCINE, BOBAN N Ot M54.6 PAIN IN THORACIC SPINE 08/29/2016 FRANCINE, BOBAN N Ot 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 08/31/2016 FRANCINE, BOBAN N Ot D47.2 MONOCLONAL GAMMOPATHY 08/31/2016 FRANCINE, BOBAN N Ot M54.9 DORSALGIA, UNSPECIFIED 08/31/2016 FRANCINE, BOBAN N Ot Z78.0 ASYMPTOMATIC MENOPAUSAL STATE 10/11/2016 FRANCINE, BOBAN N Ot D47.2 MONOCLONAL GAMMOPATHY 10/11/2016 FRANCINE, BOBAN N Ot K13.0 DISEASES OF LIPS 10/11/2016 FRANCINE, BOBAN N Ot M54.6 PAIN IN THORACIC SPINE 10/11/2016 FRANCINE, BOBAN N Ot 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 01/19/2017 FRANCINE, BOBAN N Ot D47.2 MONOCLONAL GAMMOPATHY 01/19/2017 FRANCINE, BOBAN N Ot I10 ESSENTIAL (PRIMARY) HYPERTENSION 01/19/2017 FRANCINE, BOBAN N Ot M54.9 DORSALGIA, UNSPECIFIED 01/19/2017 FRANCINE, BOBAN N Ot Z78.0 ASYMPTOMATIC MENOPAUSAL STATE 01/19/2017 FRANCINE, BOBAN N Ot Z79.899 OTHER CUSTODIAL (CURRENT) DRUG THERAPY 04/18/2017 FRANCINE, BOBAN N Ot D47.2 MONOCLONAL GAMMOPATHY 04/18/2017 FRANCINE, BOBAN N Ot I10 ESSENTIAL (PRIMARY) HYPERTENSION 04/18/2017 FRANCINE BOBAN N Ot M54.9 DORSALGIA, UNSPECIFIED 04/18/2017 FRANCINE, BOBAN N Ot Z78.0 ASYMPTOMATIC MENOPAUSAL STATE 04/18/2017 FRANCINE, BOBAN N Ot 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 04/19/2017 FRANCINE, BOBAN N Ot D47.2 MONOCLONAL GAMMOPATHY 04/19/2017 FRANCINE, BOBAN N Ot I10 ESSENTIAL (PRIMARY) HYPERTENSION 04/19/2017 FRANCINE, BOBAN N Ot M54.9 DORSALGIA, UNSPECIFIED 04/19/2017 FRANCINE, BOBAN N Ot Z78.0 ASYMPTOMATIC MENOPAUSAL STATE 04/19/2017 FRANCINE, BOBAN N Ot 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 07/20/2017 FRANCINE BOBAN N Ot D47.2 MONOCLONAL GAMMOPATHY 07/20/2017 FRANCINE, BOBAN N Ot I10 ESSENTIAL (PRIMARY) HYPERTENSION 07/20/2017 FRANCINE, BOBAN N Ot M54.9 DORSALGIA, UNSPECIFIED 07/20/2017 FRANCINE, BOBAN N Ot Z78.0 ASYMPTOMATIC MENOPAUSAL STATE 07/20/2017 FRANCINE, BOBAN N Ot Z79.899 OTHER CUSTODIAL (CURRENT) DRUG THERAPY Procedures Code Description [place] [id number] ROUTINE VENIPUNCTURE 01/14/2014 [id number] H PYLORI (IN-HOUSE) 01/14/2014 69300 LIPID PANEL 01/14/2014 88408 CBC 01/14/2014 [id number] GFR CALC (RESULT ONLY) 01/14/2014 19311 CMP 01/14/2014 16046 TSH 01/14/2014 Results Test Result Range Complete blood count (CBC) with automated white blood cell (WBC) differential - 08/27/17 13:27 Blood leukocytes automated count (number/volume) 7.2 10*3/uL 4.3-11.0 Blood erythrocytes automated count (number/volume) 3.98 10*6/uL 4.35-5.85 Venous blood hemoglobin measurement (mass/volume) 12.9 g/dL 11.5-16.0 Blood hematocrit (volume fraction) 36 % 35-52 Automated erythrocyte mean corpuscular volume 91 [foz_us] 80-99 Automated erythrocyte mean corpuscular hemoglobin (mass per erythrocyte) 32 pg 25-34 Automated erythrocyte mean corpuscular hemoglobin concentration measurement ( mass/volume) 36 g/dL 32-36 Automated erythrocyte distribution width ratio 12.8 % 10.0-14.5 Automated blood platelet count (count/volume) 239 10*3/uL 130-400 Automated blood platelet mean volume measurement 10.5 [foz_us] 7.4-10.4 Automated blood neutrophils/100 leukocytes 72 % 42-75 Automated blood lymphocytes/100 leukocytes 22 % 12-44 Blood monocytes/100 leukocytes 6 % 0-12 Automated blood eosinophils/100 leukocytes 0 % 0-10 Automated blood basophils/100 leukocytes 0 % 0-10 Blood neutrophils automated count (number/volume) 5.2 10*3 1.8-7.8 Blood lymphocytes automated count (number/volume) 1.6 10*3 1.0-4.0 Blood monocytes automated count (number/volume) 0.4 10*3 0.0-1.0 Automated eosinophil count 0.0 10*3/uL 0.0-0.3 Automated blood basophil count (count/volume) 0.0 10*3/uL 0.0-0.1 Comprehensive metabolic panel - 08/27/17 13:27 Serum or plasma sodium measurement (moles/volume) 133 mmol/L 135-145 Serum or plasma potassium measurement (moles/volume) 3.2 mmol/L 3.6-5.0 Serum or plasma chloride measurement (moles/volume) 96 mmol/L 98-107 Carbon dioxide 24 mmol/L 21-32 Serum or plasma anion gap determination (moles/volume) 13 mmol/L 5-14 Serum or plasma urea nitrogen measurement (mass/volume) 21 mg/dL 7-18 Serum or plasma creatinine measurement (mass/volume) 0.97 mg/dL 0.60-1.30 Serum or plasma urea nitrogen/creatinine mass ratio 22 NRG Serum or plasma creatinine measurement with calculation of estimated glomerular filtration rate 58 NRG Serum or plasma glucose measurement (mass/volume) 103 mg/dL 70-105 Serum or plasma calcium measurement (mass/volume) 10.0 mg/dL 8.5-10.1 Serum or plasma total bilirubin measurement (mass/volume) 0.5 mg/dL 0.1-1.0 Serum or plasma alkaline phosphatase measurement (enzymatic activity/volume) 68 U/L 40-136 Serum or plasma aspartate aminotransferase measurement (enzymatic activity/ volume) 27 U/L 5-34 Serum or plasma alanine aminotransferase measurement (enzymatic activity/volume ) 19 U/L 0-55 Serum or plasma protein measurement (mass/volume) 8.6 g/dL 6.4-8.2 Serum or plasma albumin measurement (mass/volume) 4.2 g/dL 3.2-4.5 Serum or plasma salicylates measurement (mass/volume) - 08/27/17 13:27 Serum or plasma salicylates measurement (mass/volume) < mg/dL 5.0-20.0 Serum or plasma acetaminophen measurement (mass/volume) - 08/27/17 13:27 Serum or plasma acetaminophen measurement (mass/volume) < ug/mL 10-30 Serum or plasma ethanol measurement (mass/volume) - 08/27/17 13:27 Serum or plasma ethanol measurement (mass/volume) < mg/dL <10 THYROID STIMULATING HORMONE - 08/27/17 13:27 THYROID STIMULATING HORMONE 1.08 u[iU]/mL 0.35-4.94 Serum or plasma thyroxine (T4) free measurement (mass/volume) - 08/27/17 13:27 Serum or plasma thyroxine (T4) free measurement (mass/volume) 1.47 ng/dL 0.70-1.48 Complete urinalysis with reflex to culture - 08/27/17 14:55 Urine color determination YELLOW NRG Urine clarity determination SLIGHTLY CLOUDY NRG Urine pH measurement by test strip 6 5-9 Specific gravity of urine by test strip 1.015 1.016- 1.022 Urine protein assay by test strip, semi-quantitative NEGATIVE NEGATIVE Urine glucose detection by automated test strip NEGATIVE NEGATIVE Erythrocytes detection in urine sediment by light microscopy 3+ NEGATIVE Urine ketones detection by automated test strip 4+ NEGATIVE Urine nitrite detection by test strip POSITIVE NEGATIVE Urine total bilirubin detection by test strip NEGATIVE NEGATIVE Urine urobilinogen measurement by automated test strip (mass/volume) NORMAL NORMAL Urine leukocyte esterase detection by dipstick 1+ NEGATIVE Automated urine sediment erythrocyte count by microscopy (number/high power field) [HPF] NRG Automated urine sediment leukocyte count by microscopy (number/high power field ) [HPF] NRG Bacteria detection in urine sediment by light microscopy LARGE NRG Squamous epithelial cells detection in urine sediment by light microscopy NONE NRG Crystals detection in urine sediment by light microscopy NONE NRG Casts detection in urine sediment by light microscopy NONE NRG Mucus detection in urine sediment by light microscopy NEGATIVE NRG Complete urinalysis with reflex to culture YES NRG Urine drug screening test - 08/27/17 14:55 Urine phencyclidine detection by screening method NEGATIVE NEGATIVE Urine benzodiazepines detection by screening method NEGATIVE NEGATIVE Urine cocaine detection NEGATIVE NEGATIVE Urine amphetamines detection by screening method NEGATIVE NEGATIVE Urine methamphetamine detection by screening method NEGATIVE NEGATIVE Urine cannabinoids detection by screening method NEGATIVE NEGATIVE Urine opiates detection by screening method NEGATIVE NEGATIVE Urine barbiturates detection NEGATIVE NEGATIVE Screening urine tricyclic antidepressants detection NEGATIVE NEGATIVE Urine methadone detection by screening method NEGATIVE NEGATIVE Urine oxycodone detection NEGATIVE NEGATIVE Urine propoxyphene detection NEGATIVE NEGATIVE Encounters ACCT No. Visit Date/Time Discharge Status Pt. Type Provider Facility Loc./Unit Complaint [id number] 04/29/2014 09:36:00 04/29/2014 23:59:59 CLS Outpatient SUSHIL TADEOAIMEE Avalos [id number] 02/18/2014 09:16:00 02/18/2014 23:59:59 CLS Outpatient STEVEN FRANCES DO [id number] 01/14/2014 09:50:00 01/14/2014 23:59:59 CLS Outpatient STEVEN FRANCES DO [id number] 07/24/2017 13:42:00 07/24/2017 23:59:59 CLS Outpatient MARK ESCAMILLA Robbie [facility] ONC [id number] 01/23/2017 13:46:00 04/18/2017 00:01:00 DIS Outpatient MARK ESCAMILLA Robbie [facility] ONC [id number] 07/21/2016 11:24:00 10/11/2016 00:01:00 DIS Outpatient MARK ESCAMILLA Robbie [facility] ONC [id number] 07/27/2016 10:09:00 07/27/2016 23:59:59 CLS Outpatient MARK ESCAMILLA Robbie [facility] RAD Z78.0 ASYPMTOMATIC MENOPAUSAL STATE [id number] 03/30/2016 09:03:00 05/09/2016 00:01:00 DIS Outpatient MARK ESCAMILLA [facility] ONC [id number] 02/15/2016 09:49:00 02/15/2016 23:59:59 CLS Outpatient MARK ESCAMILLA [facility] RAD BICLONAL GAMMOPATHY [id number] 09/17/2014 13:36:00 09/18/2014 11:45:00 DIS Inpatient LAURA TARIQ MD [facility] SURGICAL [id number] 08/27/2017 13:40:00 Document Registration [id number] 09/17/2014 12:20:00 Document Registration [id number] 09/17/2014 12:20:00 Document Registration [id number] 09/17/2014 12:20:53 ACT Document Registration [id number] 08/22/2017 15:40:00 08/22/2017 23:59:59 [facility] [place]
[2017-08-27] MEDS: NS IV 1000 ML 1,000 ML IV SCH (17:04)
[2017-08-27 19:42] VITALS: BP 148/70
[2017-08-28 00:28] VITALS: BP 178/79
[2017-08-28] MEDS: NS IV 1000 ML 1,000 ML IV SCH ×2 (03:27→14:35)
[2017-08-28 04:10] VITALS: BP 184/81
[2017-08-28 08:30] VITALS: BP 184/81
[2017-08-28] MEDS ORDERED: GABA800T2 PO (08:44)
[2017-08-28] MEDS ORDERED: RT-ALBUINH INH (08:44)
[2017-08-28] MEDS ORDERED: ISM60TCR PO (08:44)
[2017-08-28] MEDS ORDERED: BACL10TA PO (08:44)
[2017-08-28] MEDS ORDERED: BUDE10.22 INH (08:44)
[2017-08-28] MEDS ORDERED: HYDR25TA4 PO (08:44)
[2017-08-28] MEDS ORDERED: ESTR0.9T PO (08:44)
[2017-08-28] MEDS ORDERED: PANT40TA3 PO (08:44)
[2017-08-28] MEDS ORDERED: FLUT16SP22 NS (08:44)
[2017-08-28] MEDS ORDERED: IBUP-1780 PO (08:44)
[2017-08-28] MEDS ORDERED: MONT10TA24 PO (08:44)
[2017-08-28] MEDS ORDERED: HYDR-700 PO (08:44)
[2017-08-28] MEDS ORDERED: CETI10TA17 PO (08:44)
[2017-08-28] MEDS ORDERED: GABA-488 PO (08:44)
[2017-08-28] MEDS ORDERED: LEVO50TA6 PO (08:44)
[2017-08-28] MEDS ORDERED: OXYB5TAB9 PO ×2 (08:44→10:05)
[2017-08-28] MEDS ORDERED: cefTRIAXone INJECTION 2,000 MG in NS (IVPB) 50 ML IV NR (09:45)
[2017-08-28] MEDS ORDERED: CATHETER FLUSH 10 ML SYR IV PRN (10:00)
[2017-08-28] MEDS ORDERED: MAGN400O7 PO (10:05)
[2017-08-28] MEDS ORDERED: OMEP40CA36 PO (10:05)
[2017-08-28] MEDS ORDERED: TRAM50TA2 PO (10:05)
[2017-08-28] MEDS ORDERED: OLOP5DRO13 OU (10:05)
[2017-08-28] MEDS ORDERED: ZOLP10TA5 PO (10:05)
--- NOTE | 2017-08-28 10:28 | History & Physicial (CHS) ---
CHANTEL STERN MED STUDENT 08/28/17 1028: HPI History of Present Illness: Patient is a 66 year old female who was brought into the ED by family members for altered mental status. Patient's granddaughter states that the patient first started showing symptoms at 0400 Sunday morning where she was very confused and would give inappropriate answers to their questions. Sunday the patient began having visual hallucinations of spiders and talking to people who were not there. Family notes that the patient often does get confused when she takes Ambien however nothing like this has happened before. Family notes that she does have history of a "mental break down" many years ago. The family notes that the patient's memory has been gradually declining over time and they are concerned about dementia. Patient also has been noted to fall on occasion as they have come home to find her on the floor. They state that they cannot recall any recent falls. Source: family (Daughter and granddaughter) Exam Limitations: other (Altered Mental status) Date seen by provider: Aug 28, 2017 Time Seen by Provider: 10:00 Attending Physician Tammy Cannon MD PCP [facility] Date of Admission Aug 27, 2017 at 15:28 Home Medications Home Medications Reviewed patient Home Medication Reconciliation performed by pharmacy medication reconciliations oncology technician and/or nursing. Patients Allergies have been reviewed. Allergies Coded Allergies: pregabalin (Verified Allergy, Unknown, HIVES, 09/17/14) TCE-[id number] Hx Patient Social History Alcohol Use: Denies Use Smoking Status: Unknown if Ever Smoked Immunizations Up To Date Tetanus Booster (TDap): Less than 5yrs Date of Pneumonia Vaccine: Feb 12, 2011 Past Medical History Past Medical History- per sparse clinic records (pt. has been to our clinic 4 times) 1. Bi-polar disorder 2. Anxiety 3. Restless Leg Syndrome 4. Hypertension 5. Recurrent Angioedema- per pt. report for three years 6. GERD reportedly requiring dilatations with Dr. Reeves every 6 months 7. Insomnia 8. Chronic Constipation- requiring MiraLax daily per pt. report. 9. Hypothyroidism secondary to partial thyroidectomy secondary to "nodules" 10. Reported history of possible "bells palsy" although CT demonstrates possible old lacunar infarct 11. "Asthma" Past Surgical History 1. Hysterectomy 2. Right shoulder surgery 3. Anterior posterior repair with cystocope and pubovaginal sling 4. Partial thyroidectomy 5. Cholecystectomy Family Medical History Significant Family History: Psychiatric Problems Family History: Cardiovascular disease 19 FATHER 19 MOTHER Completed stroke 19 FATHER Diabetes mellitus G8 BROTHER FH: lung cancer 19 FATHER 19 MOTHER Myocardial infarction 19 MOTHER Review of Systems ([facility]) Constitutional: no symptoms reported EENTM: no symptoms reported Respiratory: no symptoms reported Cardiovascular: no symptoms reported Gastrointestinal: No abdominal pain Genitourinary: frequency : No Musculoskeletal: no symptoms reported Skin: no symptoms reported Psychiatric/Neurological: See HPI All Other Systems Reviewed Negative Unless Noted: Yes Physical Exam-([facility]) Physical Exam Vital Signs VS - Last 72 Hours, by Label 08/27/17 08/27/17 08/27/17 08/27/17 13:20 15:50 16:17 16:23 Temp 99.0 99.0 99.9 99.9 Pulse 79 79 70 71 Resp 13 13 16 16 B/P (MAP) 160/88 (112) 160/88 (112) 177/75 (109) 177/75 (109) Pulse Ox 97 100 99 O2 Delivery Room Air Room Air 08/27/17 08/27/17 08/28/17 08/28/17 18:59 19:42 00:28 01:00 Temp 100.1 97.2 Pulse 67 79 65 56 Resp 20 20 B/P (MAP) 148/70 (96) 178/79 (112) Pulse Ox 95 98 O2 Delivery Room Air Room Air 08/28/17 08/28/17 08/28/17 04:10 07:00 08:30 Temp 97.7 96.2 Pulse 58 60 70 Resp 18 18 B/P (MAP) 184/81 (115) 184/81 (115) Pulse Ox 98 98 O2 Delivery Room Air Room Air Capillary Refill : Less Than 3 Seconds General Appearance: no apparent distress HEENT: PERRL/EOMI Neck: non-tender, full range of motion, supple, normal inspection Respiratory: chest non-tender, lungs clear, normal breath sounds, no respiratory distress, no accessory muscle use Cardiovascular: regular rate, rhythm, no edema, no gallop, no JVD, no murmur Gastrointestinal: normal bowel sounds, non tender, soft, no organomegaly, no pulsatile mass Extremities: non-tender, normal inspection, no pedal edema, no calf tenderness Neurologic/Psychiatric: no motor/sensory deficits; No abnormal cerebellar tests (flat affect, mildy confused, oriented to person, time, and place (city only-did not know hospital)), No facial droop, No motor weakness Skin: normal color, warm/dry Lymphatic: no adenopathy Assessment/Plan Assessment/Plan Admission Status: Inpatient Order (span 2 midnights) Reason for Inpatient Admission: Altered Mental Status Urinary Tract infection Assessment & Plan Altered Mental Status - CT head- No intracranial abnormality noted - Drug Screen - negative - TSH and Free T4 - WNL - Urine studies showed large amount of bacteria in urine - MRI Head w/ and w/o contrast - Pending Urinary Tract Infection - Urine culture - Rocephin Hyptertension -Continue home meds Bi-polar Disorder - Continue home meds Clinical Quality Measures DVT/VTE Risk/Contraindication: Risk Factor Score Per Nursin RFS Level Per Nursing on Admit: 2=Moderate Copy [facility] 08/28/171954: Home Medications Allergies Coded Allergies: pregabalin (Verified Allergy, Unknown, HIVES, 09/17/14) KOA-Wzzmaw-Bwbiru Hx Patient Social History Living Status: Living home with daughter and grandaugter Past Medical History Bipolar HTN Hypothyroidism COPD Family Medical History Family History: Cardiovascular disease 19 FATHER 19 MOTHER Completed stroke 19 FATHER Diabetes mellitus G8 BROTHER FH: lung cancer 19 FATHER 19 MOTHER Myocardial infarction 19 MOTHER Review of Systems ([facility]) Constitutional: no symptoms reported; No dizziness, No fever, No malaise, No weakness EENTM: no symptoms reported Respiratory: no symptoms reported; No cough, No dyspnea on exertion, No short of breath Cardiovascular: no symptoms reported; No chest pain, No edema, No palpitations Gastrointestinal: no symptoms reported; No abdominal pain, No loss of appetite , No nausea, No vomiting Genitourinary: No discharge, No dysuria; frequency Musculoskeletal: no symptoms reported Skin: no symptoms reported Psychiatric/Neurological: Denies Headache, Denies Numbness, Denies Paresthesia , Denies Tremors, Denies Weakness Reviewed Test Results Reviewed Test Results Lab Laboratory Tests Test 08/27/17 13:27 08/27/17 14:55 Range/Units White Blood Count 7.2 4.3-11.0 10^3/uL Red Blood Count 3.98 L 4.35-5.85 10^6/uL Hemoglobin 12.9 11.5-16.0 G/DL Hematocrit 36 35-52 % Mean Corpuscular Volume 91 80-99 FL Mean Corpuscular Hemoglobin 32 25-34 PG Mean Corpuscular Hemoglobin Concent 36 32-36 G/DL Red Cell Distribution Width 12.8 10.0-14.5 % Platelet Count 239 130-400 10^3/uL Mean Platelet Volume 10.5 H 7.4-10.4 FL Neutrophils (%) (Auto) 72 42-75 % Lymphocytes (%) (Auto) 22 12-44 % Monocytes (%) (Auto) 6 0-12 % Eosinophils (%) (Auto) 0 0-10 % Basophils (%) (Auto) 0 0-10 % Neutrophils # (Auto) 5.2 1.8-7.8 X 10^3 Lymphocytes # (Auto) 1.6 1.0-4.0 X 10^3 Monocytes # (Auto) 0.4 0.0-1.0 X 10^3 Eosinophils # (Auto) 0.0 0.0-0.3 10^3/uL Basophils # (Auto) 0.0 0.0-0.1 10^3/uL Sodium Level 133 L 135-145 MMOL/L Potassium Level 3.2 L 3.6-5.0 MMOL/L Chloride Level 96 L 98-107 MMOL/L Carbon Dioxide Level 24 21-32 MMOL/L Anion Gap 13 5-14 MMOL/L Blood Urea Nitrogen 21 H 7-18 MG/DL Creatinine 0.97 0.60-1.30 MG/DL Estimat Glomerular Filtration Rate 58 BUN/Creatinine Ratio 22 Glucose Level 103 70-105 MG/DL Calcium Level 10.0 8.5-10.1 MG/DL Total Bilirubin 0.5 0.1-1.0 MG/DL Aspartate Amino Transf (AST/SGOT) 27 5-34 U/L Alanine Aminotransferase (ALT/SGPT) 19 0-55 U/L Alkaline Phosphatase 68 40-136 U/L Total Protein 8.6 H 6.4-8.2 GM/DL Albumin 4.2 3.2-4.5 GM/DL Thyroid Stimulating Hormone (TSH) 1.08 0.35-4.94 UIU/ML Free Thyroxine 1.47 0.70-1.48 NG/DL Salicylates Level < 5.0 L 5.0-20.0 MG/DL Acetaminophen Level < 10 L 10-30 UG/ML Serum Alcohol < 10 <10 MG/DL Urine Color YELLOW Urine Clarity SLIGHTLY CLOUDY Urine pH 6 5-9 Urine Specific Raccoon 1.015 L 1.016-1.022 Urine Protein NEGATIVE NEGATIVE Urine Glucose (UA) NEGATIVE NEGATIVE Urine Ketones 4+ H NEGATIVE Urine Nitrite POSITIVE H NEGATIVE Urine Bilirubin NEGATIVE NEGATIVE Urine Urobilinogen NORMAL NORMAL MG/DL Urine Leukocyte Esterase 1+ H NEGATIVE Urine RBC (Auto) 3+ H NEGATIVE Urine RBC 2-5 H /HPF Urine WBC 2-5 /HPF Urine Squamous Epithelial Cells NONE /HPF Urine Crystals NONE /LPF Urine Bacteria LARGE H /HPF Urine Casts NONE /LPF Urine Mucus NEGATIVE /LPF Urine Culture Indicated YES Urine Opiates Screen NEGATIVE NEGATIVE Urine Oxycodone Screen NEGATIVE NEGATIVE Urine Methadone Screen NEGATIVE NEGATIVE Urine Propoxyphene Screen NEGATIVE NEGATIVE Urine Barbiturates Screen NEGATIVE NEGATIVE Ur Tricyclic Antidepressants Screen NEGATIVE NEGATIVE Urine Phencyclidine Screen NEGATIVE NEGATIVE Urine Amphetamines Screen NEGATIVE NEGATIVE Urine Methamphetamines Screen NEGATIVE NEGATIVE Urine Benzodiazepines Screen NEGATIVE NEGATIVE Urine Cocaine Screen NEGATIVE NEGATIVE Urine Cannabinoids Screen NEGATIVE NEGATIVE Radiology Date of Exam: 08/27/17 CT HEAD WO PROCEDURE: CT head without contrast. TECHNIQUE: Multiple contiguous axial images were obtained through the brain without the use of intravenous contrast. DATE: August 27, 2017. COMPARISON: CT head of September 17, 2014. INDICATION: 66-year-old female, altered mental status. FINDINGS: There is a small amount of fluid layering within the left sphenoid sinus. There is near-complete opacification of the left ethmoidal air cells. There is mild mucosal thickening of the right frontal sinus. The mastoid air cells and middle ears are well aerated bilaterally. The ventricles and cerebral spinal fluid spaces are of normal size and configuration for the patient's age. There is no mass effect or midline shift. There is no acute intracranial hemorrhage. There is no abnormal extra-axial fluid collection. IMPRESSION: 1. No identified acute intracranial abnormality. 2. Air/fluid level in the left sphenoid sinus which is nonspecific with near complete opacification of the left ethmoidal air cells. Correlation for acute sinusitis may be helpful. Physical Exam-([facility]) Physical Exam General Appearance: WD/WN, no apparent distress HEENT: PERRL/EOMI Neck: non-tender, full range of motion, supple Respiratory: chest non-tender, lungs clear, normal breath sounds, no respiratory distress, no accessory muscle use Cardiovascular: regular rate, rhythm, no edema, no murmur Gastrointestinal: normal bowel sounds, non tender, soft, no organomegaly Back: no CVA tenderness Extremities: non-tender, normal inspection, no pedal edema, no calf tenderness Neurologic/Psychiatric: engine pilot II-XII nml as tested, no motor/sensory deficits, alert (oriented to person, slow to answer questions, answers appropriately to simple questions) Skin: normal color, warm/dry Lymphatic: no adenopathy Assessment/Plan Assessment/Plan Admission Status: Observation (1) Altered mental status Status: Acute Assessment & Plan: - UDS normal, labs normal, possible accidental overdose on prescribed medications, CT head normal, MRI ordered today due to minimal improvement overnight Qualifiers: Qualified Codes: R41.0 - Disorientation, unspecified (2) UTI (urinary tract infection) Status: Acute Assessment & Plan: - Started on Rocephin, urine culture pending, D1/5 Qualifiers: Qualified Codes: N30.01 - Acute cystitis with hematuria (3) HTN (hypertension) Status: Chronic Assessment & Plan: - Restart home medications Qualifiers: Qualified Codes: I10 - Essential (primary) hypertension (4) Hypothyroidism Status: Chronic Assessment & Plan: - Normal TSH and T4, continue home meds Qualifiers: Qualified Codes: E03.9 - Hypothyroidism, unspecified (5) Bipolar 1 disorder Status: Chronic Assessment & Plan: - Restarted meds (6) MGUS (monoclonal gammopathy of unknown significance) Status: Chronic Assessment & Plan: - Following with Dr Saldivar as outpatient (7) COPD (chronic obstructive pulmonary disease) Status: Chronic Assessment & Plan: - Controlled, restart home meds Qualifiers: Qualified Codes: J42 - Unspecified chronic bronchitis (8) Hypokalemia Status: Acute Assessment & Plan: - Replaced, repeat BMP in AM (9) DVT prophylaxis Status: Acute Assessment & Plan: - Lovenox (10) Discharge planning issues Status: Acute Assessment & Plan: - Will likely need follow up with neuropsych as outpatient CHANTEL STERN MED STUDENT Aug 28, 2017 10:28 TAMMY CANNON MD Aug 28, 2017 19:55
[2017-08-28] MEDS ORDERED: OLANZapine 5 MG (ZyPREXA) TAB PO SCH (11:15)
[2017-08-28 12:30] VITALS: BP 169/79
[2017-08-28] MEDS: LEVOTHYROXINE 50 MCG (LEVOTHROID) TAB PO SCH (12:49)
[2017-08-28] MEDS: HYDROCHLOROTHIAZIDE 25 MG (HCTZ) TAB PO SCH (12:49)
[2017-08-28] MEDS: ISOSORBIDE MONONITRATE 60 MG (IMDUR) TAB PO SCH (12:49)
[2017-08-28] MEDS: PANTOPRAZOLE 40 MG (PROTONIX) TAB PO SCH (12:49)
[2017-08-28] MEDS: OLANZapine 5 MG (ZyPREXA) TAB PO SCH (12:50)
--- NOTE | 2017-08-28 14:06 | Occupational Therapy Eval ---
OT Evaluation-General/PLF Medical Diagnosis Admission Date Aug 27, 2017 at 15:28 Medical Diagnosis: AMS, UTI Onset Date: Aug 27, 2017 Therapy Diagnosis Therapy Diagnosis: decr self care, weakness, decr funct mobility, impaired cognition Height/Weight Height (Feet): 5 Height (Inches): 3.00 Weight (Pounds): 157 Weight (Ounces): 7.0 Precautions Precautions/Isolations: Fall Prevention, Standard Precautions Safety Interventions: Bed Exit Alarm Referral Physician: Yosef Referral Reason: Evaluation/Treatment Medical History Pertinent Medical History: Arthritis, GERD, HTN, Hypothroidism Additional Medical History Asthma, chronic constipation, degenerative disc disease, scoliosis. Anxiety, bipolar. restless leg syndrome. recurrent angioedema. insomnia. R shoulder surgery. Current History Admitted through ED with AMS and hallucinating. Family thinks it could be related to Ambien Social History Home: Single Level (duplex) Current Living Status: Other Family (granddaughter) ADL-Prior Level of Function ADL PLOF Comments Pt and family reported that she was previously able to manage her basic self care needs. She did not drive and hasn't worked outside the home for many years. DME/Equipment: Grab Bars, Shower Drive Self: No OT Current Status Subjective Pt seen in room, up in recliner, agreeable to OT. Pt reported pain 0/10. Appearance Awake, delayed responses, flat affect Mental Status/Objective Pt was not able to give her correct name but did give her date correctly. Not oriented to date, location, situation Attachments: IV, Saline Lock, Telemetry Current Hand Dominance: Right Upper Extremity ROM Limited to approx 80 degrees bilat shoulders. Rest UEs grossly WFL. Upper Extremity Sensation Pt reported occasional numbness in fingertips R hand Upper Extremity Strength Grossly 3+/5 bilat Incoordinated movements with bilat hands ADL-Treatment ADL-Current Pt was able to put slipper socks on while seated in recliner. She pushed up from arms of chair with skilled cues and walked very slowly, with small steps, a few feet to the bed, hand hold assist. Nursing reported that she showered this morning and was only able to wash her face. They have been walking her to the bathroom with one person assist, very slowly and is continent when family is there to call for help. She is currently NPO for procedure but family reported that she can feed herself but just doesn't want to eat. Functional Will Measure 0=Not Assessed/NA 4=Minimal Assistance 1=Total Assistance 5=Supervision or Setup 2=Maximal Assistance 6=Modified Will 3=Moderate Assistance 7=Complete IndependenceIRFPAI Quality Coding Scale 6 Independent with activity with or without an assistive device 5 Patient requires set up or clean up by helper. Patient completes activity by themselves 4 Supervision or touching assist (CGA). [place] provide cues , steadying assist 3 The helper provides less than half the effort to complete the activity 2 The helper provides more than half the effort to complete the activity 1 Dependent. The helper does all the effort to complete an activity 7 Patient refused to complete or attempt activity 9 The patient did not perform the activity before the current illness or injury 88 Not attempted due to Medical conditions or safety concerns Education OT Patient Education: Purpose of tx/functional activities, Rehab process Teaching Recipient: Patient, Family Teaching Methods: Discussion Response to Teaching: Verbalize Understanding, Reinforcement Needed OT Jail Goals Fluid Designer Goals Time Frame: Sep 04, 2017 Eating (FIM): 6 Grooming(FIM): 5 Bathing(FIM): 5 Upper Body Dressing(FIM): 5 Lower Body Dressing(FIM): 5 Toileting(FIM): 5 Toilet/Commode Transfer(FIM): 5 Shower Transfer(FIM): 5 Additional Goals: 2-Verbalize Understanding, 3-ImproveStrength/Abilio 1=Demonstrate adherence to instructed precautions during ADL tasks. 2=Patient will verbalize/demonstrate understanding of assistive devices/ modifications for ADL. 3=Patient will improve strength/tolerance for activity to enable patient to perform ADL's. OT Education/Plan Problem List/Assessment Assessment: Decreased UE Strength, Dependent Transfers, Impaired Cognition, Impaired Funct Balance, Impaired Self-Care Skills Pt would benefit from skilled OT to increase her independence in basic self care Discharge Recommendations Plan/Recommendations: Continue POC Treatment Plan/Plan of Care Treatment,Training & Education: Yes Patient would benefit from OT for education, treatment and training to promote independence in ADL's, mobility, safety and/or upper extremity function for ADL' s. Plan of Care: ADL Retraining, Functional Mobility, UE Funct Exercise/Act, UE Neuromus Re-Ed/Coord Treatment Duration: Sep 04, 2017 Frequency: 5 times per week Estimated Hrs Per Day: .5 hour per day Agreement: Yes Rehab Potential: Fair Time/GCodes Start Time: 13:05 Stop Time: 13:28 Total Time Billed (hr/min): 23 Billed Treatment Time visit, 23 minutes evaluation moderate intensity SHANTE PRUETT OT Aug 28, 2017 14:06
[2017-08-28 15:50] VITALS: BP 142/68
[2017-08-28] MEDS ORDERED: LORazepam INJ 2 MG/ML (ATIVAN) VIAL ONE (17:49)
[2017-08-28] MEDS ORDERED: LORazepam INJ 2 MG/ML (ATIVAN) VIAL IVP ONE (18:00)
--- NOTE | 2017-08-28 18:03 | Diagnostic Imaging Report ---
PROCEDURE: MR imaging of the brain without contrast. TECHNIQUE: Multiplanar, multisequence MR imaging of the brain was performed without contrast. INDICATION: Headaches and dizziness. COMPARISON: Comparison is made with head CT from 08/27/2017. FINDINGS: Ventricles and sulci are within normal limits. No diffusion restriction is seen. The normal expected flow voids within the carotid siphons are identified. There is no midline shift. No acute intra-axial or extra-axial hemorrhage is seen. There is some minimal T2 and FLAIR signal identified in the left posterior parietal subcortical and periventricular white matter, likely owing to prior stroke. No other abnormality seen. IMPRESSION: Chronic changes. No acute intracranial process is detected. Dictated by: Dictated on workstation # [id number]
[2017-08-28] MEDS: RT-ADVAIR HFA 45/21 MCG PER PUFF IH SCH (19:43)
[2017-08-28 20:00] VITALS: BP 125/60
[2017-08-28] MEDS ORDERED: ENOXAPARIN 40 MG/0.4 ML (LOVENOX) SYR SC SCH (20:15)
[2017-08-28] MEDS ORDERED: MONTELUKAST 10 MG (SINGULAIR) TAB PO SCH (21:00)
[2017-08-29 00:34] VITALS: BP 141/70
[2017-08-29 04:00] VITALS: BP 158/70
[2017-08-29] MEDS: ISOSORBIDE MONONITRATE 60 MG (IMDUR) TAB PO SCH (05:41)
[2017-08-29] MEDS: PANTOPRAZOLE 40 MG (PROTONIX) TAB PO SCH (05:41)
[2017-08-29] MEDS: LEVOTHYROXINE 50 MCG (LEVOTHROID) TAB PO SCH (05:41)
[2017-08-29 06:21] LABS: BUN/CREATININE RATIO 18; CARBON DIOXIDE 22 MMOL/L (21-32); CHLORIDE 101 MMOL/L (98-107); CREATININE SERUM 0.74 MG/DL (0.60-1.30); GFR ESTIMATED > 60; GLUCOSE 98 MG/DL (70-105); POTASSIUM 2.9 MMOL/L (3.6-5.0); SODIUM 134 MMOL/L (135-145)
[2017-08-29] MEDS ORDERED: LEVOTHYROXINE 50 MCG (LEVOTHROID) TAB PO SCH (06:30)
[2017-08-29] MEDS ORDERED: ISOSORBIDE MONONITRATE 60 MG (IMDUR) TAB PO SCH (07:00)
[2017-08-29] MEDS ORDERED: PANTOPRAZOLE 40 MG (PROTONIX) TAB PO SCH (07:00)
[2017-08-29 08:34] VITALS: BP 147/80
[2017-08-29] MEDS ORDERED: NON-FORMULARY MEDICATION 1 EA EA (Omeprazole 40 MG) PO SCH (09:00)
[2017-08-29] MEDS ORDERED: cefTRIAXone INJECTION 1,000 MG in NS (IVPB) 50 ML IV SCH (09:00)
[2017-08-29] MEDS ORDERED: HYDROCHLOROTHIAZIDE 25 MG (HCTZ) TAB PO SCH (09:00)
[2017-08-29] MEDS ORDERED: LORATADINE (CLARITIN) 10 MG TAB PO PRN (09:00)
[2017-08-29] MEDS: HYDROCHLOROTHIAZIDE 25 MG (HCTZ) TAB PO SCH (09:01)
[2017-08-29] MEDS: OLANZapine 5 MG (ZyPREXA) TAB PO SCH (09:02)
[2017-08-29] MEDS: RT-ADVAIR HFA 45/21 MCG PER PUFF IH SCH (09:12)
--- NOTE | 2017-08-29 10:46 | Occupational Ther Daily Note ---
OT Current Status-Daily Note Subjective Pt seen in room, up in bed, smiling and talkative. Excited to be going home today Appearance Alert, cooperative, recalled therapist from yesterday Mental Status/Objective Functional Banks Measure 0=Not Assessed/NA 4=Minimal Assistance 1=Total Assistance 5=Supervision or Setup 2=Maximal Assistance 6=Modified Banks 3=Moderate Assistance 7=Complete Banks ADL-Treatment Patient's granddaughter indicated that she is going home today. She has no concerns about ADLs at home and said that family has been taking her to the bathroom without using FWW and without needing extra help. Granddaughter will be with her at home. Education OT Patient Education: Progress toward Goal/Update tx plan Teaching Recipient: Patient, Family Teaching Methods: Discussion Response to Teaching: Verbalize Understanding OT Short Term Goals Short Term Goals 1=Demonstrate adherence to instructed precautions during ADL tasks. 2=Patient will verbalize/demonstrate understanding of assistive devices/ modifications for ADL. 3=Patient will improve strength/tolerance for activity to enable patient to perform ADL's. OT Intermediate Goals Intermediate Goals Time Frame: Sep 04, 2017 Eating (FIM): 6 Grooming(FIM): 5 Bathing(FIM): 5 Upper Body Dressing(FIM): 5 Lower Body Dressing(FIM): 5 Toileting(FIM): 5 Toilet/Commode Transfer(FIM): 5 Shower Transfer(FIM): 5 Additional Goals: 2-Verbalize Understanding, 3-ImproveStrength/Abilio 1=Demonstrate adherence to instructed precautions during ADL tasks. 2=Patient will verbalize/demonstrate understanding of assistive devices/ modifications for ADL. 3=Patient will improve strength/tolerance for activity to enable patient to perform ADL's. OT Education/Plan Problem List/Assessment Pt would benefit from skilled OT to increase her independence in basic self care Discharge Recommendations Plan/Recommendations: Discharge/Goals Met (to family satisfaction) Treatment Plan/Plan of Care Patient would benefit from OT for education, treatment and training to promote independence in ADL's, mobility, safety and/or upper extremity function for ADL' s. Plan of Care: ADL Retraining, Functional Mobility, UE Funct Exercise/Act, UE Neuromus Re-Ed/Coord Treatment Duration: Sep 04, 2017 Frequency: 5 times per week Estimated Hrs Per Day: .5 hour per day Agreement: Yes Rehab Potential: Fair Time/GCodes Start Time: 10:05 Stop Time: 10:10 Total Time Billed (hr/min): 5 Billed Treatment Time visit, 5 minutes SHANTE PRUETT OT Aug 29, 2017 10:45
--- NOTE | 2017-08-29 10:47 | Discharge Summary ---
Diagnosis/Chief Complaint Date of Admission Aug 27, 2017 at 15:28 Date of Discharge 08/29/2017 Admission Diagnosis Admission Diagnosis Altered Mental Status Dementia UTI HTN Hypothyroidism Bipolar MGUS COPD Insomnia Hypokalemia Polypharmacy Discharge Diagnosis See Above Chief Complaint/HPI Chief Complaint/HPI Patient is a 66 year old female who was brought into the ED by family members for altered mental status. Patient's granddaughter states that the patient first started showing symptoms at 0400 Sunday morning where she was very confused and would give inappropriate answers to their questions. Sunday the patient began having visual hallucinations of spiders and talking to people who were not there. Family notes that the patient often does get confused when she takes Ambien however nothing like this has happened before. Family notes that she does have history of a "mental break down" many years ago. The family notes that the patient's memory has been gradually declining over time and they are concerned about dementia. Patient also has been noted to fall on occasion as they have come home to find her on the floor. They state that they cannot recall any recent falls. Discharge Summary-Simple/Stand Consultations None Discharge Physical Examination Allergies: Coded Allergies: pregabalin (Verified Allergy, Unknown, HIVES, 09/17/14) Vitals & I&Os Vital Sign - Last 12Hours Date Time Temp Pulse Resp B/P (MAP) Pulse Ox O2 Delivery O2 Flow Rate FiO2 08/29/17 09:12 97 Room Air 08/29/17 08:34 99.2 77 20 147/80 (102) Intake and Output 08/29/17 00:00 Intake Total 1540 ml Output Total 200 ml Balance 1340 ml General Appearance: Alert (Oriented x 2) HEENT: Mucous Memb Moist/[place] Respiratory: Clear to Auscultation, Normal Air Movement Cardiovascular: Regular Rate, No Murmurs Abdominal: Normal Bowel Sounds, Soft, No Tenderness, No Hepatosplenomegaly, No Masses Extremities: No Edema, No Tenderness/Swelling Skin: No Rashes, No Breakdown Neuro: Normal Speech, Strength at 5/5 X4 Ext, Sensation Intact, Cranial Nerves 3-12 NL Psych/Mental Status: Mental Status NL, Mood NL Hospital Course See final discharge diagnosis. Other pending tests PATIENT NEEDS EVALUATION FROM NEUROPSYCH Radiology Reviewed Date of Exam: 08/27/17 CT HEAD WO PROCEDURE: CT head without contrast. TECHNIQUE: Multiple contiguous axial images were obtained through the brain without the use of intravenous contrast. DATE: August 27, 2017. COMPARISON: CT head of September 17, 2014. INDICATION: 66-year-old female, altered mental status. FINDINGS: There is a small amount of fluid layering within the left sphenoid sinus. There is near-complete opacification of the left ethmoidal air cells. There is mild mucosal thickening of the right frontal sinus. The mastoid air cells and middle ears are well aerated bilaterally. The ventricles and cerebral spinal fluid spaces are of normal size and configuration for the patient's age. There is no mass effect or midline shift. There is no acute intracranial hemorrhage. There is no abnormal extra-axial fluid collection. IMPRESSION: 1. No identified acute intracranial abnormality. 2. Air/fluid level in the left sphenoid sinus which is nonspecific with near complete opacification of the left ethmoidal air cells. Correlation for acute sinusitis may be helpful. Discussion & Recommendations 66 yo F that presented to ER with altered mental status and concerns for accidental overdose of medications Altered Mental Status: Normal CT and MRI brain. Concerns for accidental overdose of ambien per family. UDS neg. Patient also very high risk for polypharmacy and needs medication review. Med list was adjusted and cut down. Normal labs. Dementia: Concerns were made by family regarding dementia progression. Patient would benefit from neuropsych eval which would likely help with medication titration as well. UTI: Treated for UTI. Culture pending. PO antibiotics sent home to complete 5 day course. HTN: Restarted home meds Hypothyroidism: TSH w/n normal limits. Restarted home meds. Bipolar: Needs medications reviewed. Decreased Gabapentin and Benzo medications. MGUS: Following outpatient. COPD: Restarted home meds Insomnia: Stopped Ambien. Discussed good sleep hygiene. Hypokalemia: Replaced and resolved. Polypharmacy: Needs titration of medications Discharge Condition at discharge Guarded Instructions to patient/family Please see electronic discharge instructions given to patient. Discharge Medications Reviewed and agree with Discharge Medication list on patient's Discharge Instruction sheet Clinical Quality Measures DVT/VTE Risk/Contraindication: Risk Factor Score Per Nursin RFS Level Per Nursing on Admit: 2=Moderate Copy Copies To 1: Karl CLAUDIO HOLLY R MD Aug 29, 2017 10:47
[2017-08-29] MEDS ORDERED: IBUP-1780 PO (10:51)
[2017-08-29] MEDS ORDERED: NITR100C PO (10:52)
--- NOTE | 2017-08-29 10:59 | D/C HH Face to Face Order ---
D/C Face to Face Orders Instructions for Patient Patient Instructions/FollowUp: You have an appt with Karl Martinez on September 05 @ 240 Physician to follow Patient: Michelle Discharge Diet for Home: Cardiac Diet Patient Problems: Altered Mental Status Dementia HTN UTI Bipolar Insomnia Goals for Patient: - Needs to focus on sleep hygiene, no TV in bed - Medication review as patient is at risk for polypharmacy Patient Data-Allergies,Ht & Wt Patient Allergies: Coded Allergies: pregabalin (Verified Allergy, Unknown, HIVES, 09/17/14) Height (Feet): 5 Height (Inches): 3.00 Weight (Pounds): 157 Weight (Ounces): 7.0 Home Health Need/Face to Face Date of Face to Face: Aug 29, 2017 Clinical Findings: Instability, Unsteady gait I have seen Pt [id number]: Yes Discharged To: Home Diagnosis/Conditions: See Above Patient is Homebound due to: CognItive deficits, Rosendo fall risk due to instabilty Homebound Status Due to the above stated illness, injury or surgical procedure (medical condition or diagnosis) and associated clinical findings, the patient is homebound because of his/her inability to leave home except with aid of a supportive device and/or person AND leaving the home requires a considerable and taxing effort or is medically contraindicated. Pt req the following assistanc: Aid of another person, [facility] Nursing Orders Home Health Services Order: Nursing Services, [facility] Judge-Evaluate & Treat, Physical Therapy-Evaluate & Treat - Please review medication list in detail as many medications have been changed or discontinued Home Health Infusion Therapy Site Location: [facility] Orders Therapy Orders: OT (must have SN or PT order), Physical Therapy, PT to assess for OT Therapy Specific Orders: Eval assistive deivces, Teach strategies/cognitive deficits, Teach enviro modifications/safety, Increase strength/endurance Certify Stmt I certify that this patient is under my care and that I, a nurse practitioner or a physician; a insurance sales assistant working with me, had a face to face encounter that - meets the physician face to face encounter requirements with this patient as dated. TAMMY CANNON MD Aug 29, 2017 10:59
[2017-08-29] MEDS: NS IV 1000 ML 1,000 ML IV SCH (12:42)
--- NOTE | 2017-08-30 09:40 | Physician Query Clarification ---
PQ-Link Manifestation-Etiology Admission/Discharge Admission Date: Aug 27, 2017 at 15:28 Discharge Date: Aug 29, 2017 at 13:22 The medical record reflects the following clinical scenario: History/Risk Factors: UTI, polypharmacy, dementia, Bipolar 1, HTN Clinical Findings: Altered mental status, large amounts of bacteria in urine Treatment: IV Rocephin, Med list adjusted and cut down Question: Can you specify if the Altered mental status is due to/associated with Medication (please specify the drug) or UTI or other (please list)? Please document a response below PHYSICIAN RESPONSE Manifestation due to/assoic: Other,explanation/clinical finding Explanation of clincal finding NOT MY PATIENT - THIS SHOULD GO TO DR. TAMMY CANNON - NOT DR. TAMMY ROCA In responding to this query, please exercise your independent professional judgment. The purpose of this communication is to more accurately reflect the complexity of your patients condition. The fact that a question is asked does not imply that any particular answer is desired or expected. Thank you for your timely response to this clarification. Requestors name: Jewel THIS PHYSICIAN QUERY FORM IS A PERMANENT PART OF THE MEDICAL RECORD JEWEL NELSON Aug 30, 2017 09:40 TAMMY ROCA MD Aug 31, 2017 11:33
--- NOTE | 2017-09-06 09:25 | Physician Query Clarification ---
PQ-Link Manifestation-Etiology Admission/Discharge Admission Date: Aug 27, 2017 at 15:28 Discharge Date: Aug 29, 2017 at 13:22 The medical record reflects the following clinical scenario: istory/Risk Factors: UTI, polypharmacy, dementia, Bipolar 1, HTN Clinical Findings: Altered mental status, large amounts of bacteria in urine Treatment: IV Rocephin, Med list adjusted and cut down Question: Can you specify if the Altered mental status is due to/associated with Medication (please specify the drug) or UTI or other (please list)? Please document a response below PHYSICIAN RESPONSE Manifestation due to/assoic: Other,explanation/clinical finding Explanation of clincal finding Due to medication interactions In responding to this query, please exercise your independent professional judgment. The purpose of this communication is to more accurately reflect the complexity of your patients condition. The fact that a question is asked does not imply that any particular answer is desired or expected. Thank you for your timely response to this clarification. Requestors name: Jewel THIS PHYSICIAN QUERY FORM IS A PERMANENT PART OF THE MEDICAL RECORD JEWEL NELSON Sep 06, 2017 09:25 TAMMY CANNON MD Sep 11, 2017 19:52
== END 2017-08-29 10:53 | disposition home health service (06) ==
LOC: EDUNIT# 13:19 → ER 13:21 → UNDOADMOB 15:28 → 4TH 15:28 → INTOOBSV 15:28 → OBSVTOIN 15:28 → 4TH 16:03 → UNDODISIN 08-29 13:22
PROVIDERS: ADMIT Family Medicine; ATTEND Family Medicine
DX: R41.82 Altered mental status, unspecified (principal); N39.0 Urinary tract infection, site not specified; F03.90 Unspecified dementia, unspecified severity, without behavioral disturbance, psychotic disturbance, mood disturbance, and anxiety; J45.909 Unspecified asthma, uncomplicated; I10 Essential (primary) hypertension; K21.9 Gastro-esophageal reflux disease without esophagitis; E89.0 Postprocedural hypothyroidism; F41.9 Anxiety disorder, unspecified; F31.9 Bipolar disorder, unspecified; G25.81 Restless legs syndrome; K59.09 Other constipation; D47.2 Monoclonal gammopathy; J44.9 Chronic obstructive pulmonary disease, unspecified; E87.6 Hypokalemia; G47.00 Insomnia, unspecified; T50.905A Adverse effect of unspecified drugs, medicaments and biological substances, initial encounter
CPT/HCPCS: 36415; 70450; 70551; 80048; 80053; 80306; 80320; 80329; 81000; 84439; 84443; 85025; 87077; 87088; 87186; 93005; 94640; 94664; 94760; 96360; G0378

== ENCOUNTER → 2018-03-19 | Outpatient (CLI) | payer MEDICAID ==
[~2018-03-19] MED LIST changes: +BACL10TA PO; +BUDE10.22 INH; +CETI10TA17 PO; +ESTR0.9T PO; +FLUT16SP22 NS; +GABA-488 PO; -GABA600T2 PO; +GABA800T10 PO; +GBPN600T PO; +HYDR-700 PO; +HYDR25TA4 PO; +IBUP-1780 PO; +ISM60TCR PO; +MAGN400O7 PO; +MONT10TA24 PO; +NITR100C PO; +OLOP5DRO13 OU; +OXYB5TAB9 PO; +PANT40TA3 PO; -POLY255P PO; +POLY255P16 PO
[2018-03-19 12:09] LABS: BUN/CREATININE RATIO 21; CALCIUM 10.1 MG/DL (8.5-10.1); CARBON DIOXIDE 25 MMOL/L (21-32); CHLORIDE 96 MMOL/L (98-107); CREATININE SERUM 0.86 MG/DL (0.60-1.30); GFR ESTIMATED > 60; GLUCOSE 81 MG/DL (70-105); POTASSIUM 3.6 MMOL/L (3.6-5.0); SODIUM 131 MMOL/L (135-145)
== END ==
LOC: EDSTATUS 10-18 10:57 → ONC 10:58
PROVIDERS: ATTEND Internal Medicine Hematology & Oncology
DX: D47.2 Monoclonal gammopathy (principal); I10 Essential (primary) hypertension; M54.9 Dorsalgia, unspecified; Z78.0 Asymptomatic menopausal state; Z79.899 Other long term (current) drug therapy
CPT/HCPCS: 36415; 80048; 83883; 84155; 84165; 99213

== ENCOUNTER 2018-05-29 10:10 | Outpatient (RCR) | payer MEDICAID ==
[2018-05-29 10:32] LABS: BASOPHILS % (AUTO) 1 % (0-10); EOSINOPHILS % (AUTO) 1 % (0-10); HEMATOCRIT 33 % (35-52); HEMOGLOBIN 11.4 G/DL (11.5-16.0); LYMPHOCYTES # (AUTO) 1.3 X 10^3 (1.0-4.0); LYMPHOCYTES % (AUTO) 29 % (12-44); MEAN CORPUSCULAR HEMOGLOBIN 33 PG (25-34); MEAN CORPUSCULAR HGB CONC 35 G/DL (32-36); MEAN CORPUSCULAR VOLUME 96 FL (80-99); MEAN PLATELET VOLUME 9.4 FL (7.4-10.4); MONOCYTES # (AUTO) 0.3 X 10^3 (0.0-1.0); MONOCYTES % (AUTO) 8 % (0-12); NEUTROPHILS # (AUTO) 2.7 X 10^3 (1.8-7.8); NEUTROPHILS % (AUTO) 62 % (42-75); PLATELET COUNT 209 10^3/uL (130-400); RED CELL DISTRIBUTION WIDTH 11.6 % (10.0-14.5); WHITE BLOOD COUNT 4.4 10^3/uL (4.3-11.0)
[2018-05-29 10:52] LABS: ALANINE AMINOTRANSFERASE 28 U/L (0-55); ALBUMIN 4.1 GM/DL (3.2-4.5); ALKALINE PHOSPHATASE 56 U/L (40-136); BILIRUBIN,TOTAL 0.3 MG/DL (0.1-1.0); BUN/CREATININE RATIO 17; CALCIUM 9.6 MG/DL (8.5-10.1); CARBON DIOXIDE 28 MMOL/L (21-32); CHLORIDE 83 MMOL/L (98-107); CREATININE SERUM 0.81 MG/DL (0.60-1.30); GFR ESTIMATED > 60; GLUCOSE 93 MG/DL (70-105); POTASSIUM 3.4 MMOL/L (3.6-5.0); TOTAL PROTEIN 8.5 GM/DL (6.4-8.2)
[2018-05-29 10:54] LABS: SODIUM 121 MMOL/L (135-145)
--- NOTE | 2018-05-29 14:25 | Diagnostic Imaging Report ---
INDICATION: Hyponatremia. EXAMINATION: PA and lateral chest. FINDINGS: The heart size and pulmonary vascularity are normal. The lungs are clear. There are no effusions or pneumothoraces. IMPRESSION: Negative chest. Dictated by: Dictated on workstation # [id number]
== END 2018-08-27 | disposition home or self-care (01) ==
LOC: ONC 10:10
PROVIDERS: ATTEND Internal Medicine Hematology & Oncology
DX: D47.2 Monoclonal gammopathy (principal); I10 Essential (primary) hypertension; M54.9 Dorsalgia, unspecified; Z78.0 Asymptomatic menopausal state; Z79.899 Other long term (current) drug therapy
CPT/HCPCS: 36415; 71046; 80053; 82232; 82784; 83883; 84155; 84165; 85025; 99213

== ENCOUNTER → 2018-09-06 | Outpatient (CLI) | payer MEDICAID ==
[~2018-09-06] MED LIST changes: +GADOBUTROL 7.5 MMOL/7.5 ML (GADAVIST) VIAL IV ONE
--- NOTE | 2018-09-06 20:56 | Diagnostic Imaging Report ---
PROCEDURE: MR imaging of the brain with and without contrast. TECHNIQUE: Multiplanar, multisequence MR imaging of the brain was performed with and without contrast. DATE: September 06, 2018. COMPARISON: MRI brain, August 28, 2017. HISTORY: 67-year-old female, new onset daily headaches. History of falls. FINDINGS: There is no restricted diffusion. There are no areas of abnormal intracranial susceptibility. There is a near empty sella. There is no hydrocephalus. There is no abnormal extra axial fluid collection. There is no acute intracranial hemorrhage. There is no mass effect or midline shift. There is signal along the left temporal lobe cortex and left frontal lobe cortex seen best on axial FLAIR sequence image 15 and adjacent sequential images without diffusion restriction or contrast enhancement. This is unchanged since prior MRI of August 28, 2017 and may relate to sequela of prior insult. This is not specific. There is extensive opacification of the paranasal sinuses with prominent mucosal thickening. There is no masslike abnormal enhancement within the paranasal sinuses. The mastoid air cells and middle ears are well aerated, bilaterally. IMPRESSION: 1. No identified acute intracranial abnormality. 2. Areas of high signal in the left frontal and temporal lobe cortex without diffusion restriction or contrast enhancement which are unchanged since August 28, 2017. This most likely reflects sequela of remote prior insult although is technically not specific. 3. Extensive mucosal thickening of the paranasal sinuses and paranasal sinus disease with progression of mucosal thickening and opacification since prior MRI brain. No air-fluid level or findings to specifically suggest acute sinusitis. Dictated by: Dictated on workstation # [id number]
--- NOTE | 2018-09-09 08:52 | Diagnostic Imaging Report ---
INDICATION: Routine screening. COMPARISON: No prior mammograms are available for comparison. TECHNIQUE: 2D and 3D bilateral screening mammography was performed with CAD. FINDINGS: Scattered fibroglandular densities are identified bilaterally. There are benign-appearing calcifications scattered throughout both breasts. No mass or malignant appearing microcalcifications are seen. The axillae are unremarkable. IMPRESSION: No mammographic features suspicious for malignancy are identified. ACR BI-RADS Category 2: Benign findings. Result letter will be mailed to the patient. Note: At least 10% of breast cancer is not imaged by mammography. Dictated by: Dictated on workstation # [id number]
== END ==
LOC: RAD 09:42
PROVIDERS: ATTEND Nurse Practitioner Family
DX: Z12.31 Encounter for screening mammogram for malignant neoplasm of breast (principal); J32.8 Other chronic sinusitis; G93.89 Other specified disorders of brain; G44.52 New daily persistent headache (NDPH); R42 Dizziness and giddiness
CPT/HCPCS: 70553; 77067

== ENCOUNTER 2018-10-12 14:31 | Inpatient (IN) | payer MEDICAID ==
[~2018-10-12] VITALS: Ht 160 cm; Wt 71.7 kg
[~2018-10-12 14:31] MED LIST changes: -GADOBUTROL 7.5 MMOL/7.5 ML (GADAVIST) VIAL IV ONE; -OLAN20TA16 PO; +OLAN20TA34 PO
--- NOTE | 2018-10-12 14:47 | ED Fall/Injury ---
General Stated Complaint: R HIP PAIN Source: patient, EMS Exam Limitations: no limitations History of Present Illness Date Seen by Provider: Oct 12, 2018 Time Seen by Provider: 14:31 Initial Comments The patient presents to ER by EMS from home with chief complaint around noon she was using her walker to get around her own house when she fell over onto her left hip. She denies striking her head nor loss of consciousness. She's not on blood thinners. She was placed in c-collar precautions per EMS. She is having pain in her left hip and no where else. No previous injury to her hips. She denies dysuria but she did have 9 out of 10 pain and nausea when EMS arrived. They gave her 4 of Zofran, 75 of fentanyl and 4 of morphine and now her pain is down to 4, manageable and her nausea is gone. Allergies and Home Medications Allergies Coded Allergies: pregabalin (Verified Allergy, Unknown, HIVES, 09/17/14) Home Medications Acetaminophen 500 Mg Tablet, 500-1,000 MG PO Q6H PRN for PAIN-MILD, (Reported) Albuterol Sulfate 1 Puff Puff, 2 PUFF INH QID PRN for SHORTNESS OF BREATH, (Reported) Budesonide/Formoterol Fumarate 10.2 Gm Hfa.aer.ad, 2 PUFF INH BID, (Reported) Cetirizine HCl 10 Mg Tablet, 10 MG PO DAILY PRN for ALLERGIES, (Reported) Estrogens, Conjugated 0.9 Mg Tablet, 0.9 MG PO DAILY, (Reported) Fluticasone Propionate 16 Gm [place].susp, 2 SPRAYS NS BID, (Reported) Gabapentin 300 Mg Capsule, 300 MG PO TID, (Reported) Hydrochlorothiazide 25 Mg Tablet, 25 MG PO DAILY, (Reported) Ibuprofen 800 Mg Tablet, 600 MG PO TID PRN for PAIN-MILD Prescribed by: TAMMY CANNON on 08/29/17 1051 Isosorbide Mononitrate 60 Mg Tab, 60 MG PO HS, (Reported) Lamotrigine 100 Mg Tablet, 100 MG PO DAILY, (Reported) Levothyroxine Sodium 50 Mcg Tablet, 50 MCG PO DAILY, (Reported) Magnesium Hydroxide 400 Mg/5 Ml Oral.susp, 5-15 MG PO QID PRN for CONSTIPATION- 7TH LINE, (Reported) Montelukast Sodium 10 Mg Tablet, 10 MG PO HS, (Reported) Nitrofurantoin Macrocrystal 100 Mg Capsule, 100 MG PO BID Prescribed by: TAMMY CANNON on 08/29/17 1052 Olanzapine 20 Mg Tablet, 20 MG PO DAILY, (Reported) Olopatadine HCl 5 Ml Drops, 1 DROP OU BID, (Reported) Omeprazole 40 Mg Capsule.dr, 40 MG PO DAILY, (Reported) Patient Home Medication List Home Medication List Reviewed: Yes Review of Systems Review of Systems Constitutional: No chills, No fever Eyes: Denies Blindness, Denies Blurred Vision Ears, Nose, Mouth, Throat: denies ear pain, denies ear discharge Respiratory: No cough, No phlegm, No short of breath Cardiovascular: No chest pain, No edema, No palpitations Gastrointestinal: No abdominal pain, No constipation, No diarrhea Genitourinary: No dysuria, No frequency Musculoskeletal: see HPI, back pain, joint pain Past Xvnfskn-Heaipa-Ptxsxi Hx Patient Social History Alcohol Use: Denies Use Recreational Drug Use: No Smoking Status: Never a Smoker Recent Foreign Travel: No Contact w/Someone Who Travel: No Immunizations Up To Date Tetanus Booster (TDap): Less than 5yrs Date of Pneumonia Vaccine: Feb 12, 2011 Past Medical History Surgeries: Yes (I&D OF SPIDER BITES, thyroid nodules, l shoulder) Gallbladder, Hysterectomy, Thyroidectomy Respiratory: Yes Asthma Cardiac: Yes Hypertension Neurological: Yes (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, current expressive aphasia) Reproductive Disorders: No Genitourinary: No (unknown) Gastrointestinal: Yes (esophageal dilitation every 6 months) Gastroesophageal Reflux, Chronic Constipation, Diverticulosis, Gall Bladder Disease Musculoskeletal: Yes Degenerate Disk Disease, Arthritis, Scoliosis Endocrine: Yes Hypothyroidsim Cancer: No Psychosocial: Yes Anxiety, Bipolar Integumentary: No Blood Disorders: No Family Medical History Cardiovascular disease 19 FATHER 19 MOTHER Completed stroke 19 FATHER Diabetes mellitus G8 BROTHER FH: lung cancer 19 FATHER 19 MOTHER Myocardial infarction 19 MOTHER Psychiatric Problems Physical Exam Vital Signs Vital Signs - First Documented 10/12/18 14:50 Temp 98.9 Pulse 88 Resp 16 B/P (MAP) 123/71 (88) Pulse Ox 95 O2 Delivery Nasal Cannula O2 Flow Rate 2.00 Capillary Refill : Height, Weight, BMI Height: 5'3.00" Weight: 157lbs. 7.0oz. [id number]; 27.9 BMI Method:Stated General Appearance: WD/WN, mild distress HEENT: PERRL/EOMI, normal ENT inspection, TMs normal, pharynx normal, other (no raccoon eyes Montiel sign. Or hemotympanum) Neck: non-tender, full range of motion, supple, normal inspection, other (c- collar initially in place by EMS) Cardiovascular: normal peripheral pulses, regular rate, rhythm, no edema Respiratory: chest non-tender, lungs clear, normal breath sounds, no respiratory distress, no accessory muscle use Peripheral Pulses: 2+ Dorsalis Pedis (R), 2+ Left Dors-Pedis (L), 2+ Radial Pulses (R), 2+ Radial Pulses (L) Gastrointestinal: normal bowel sounds, soft, tenderness (for quadrant. Exquisitely tender to palpation) Progress/Results/Core Measures Results/Orders Lab Results Laboratory Tests Test 10/12/18 14:44 10/12/18 16:35 Range/Units White Blood Count 16.8 H 4.3-11.0 10^3/uL Red Blood Count 3.16 L 4.35-5.85 10^6/uL Hemoglobin 10.4 L 11.5-16.0 G/DL Hematocrit 30 L 35-52 % Mean Corpuscular Volume 96 80-99 FL Mean Corpuscular Hemoglobin 33 25-34 PG Mean Corpuscular Hemoglobin Concent 34 32-36 G/DL Red Cell Distribution Width 12.3 10.0-14.5 % Platelet Count 267 130-400 10^3/uL Mean Platelet Volume 8.8 7.4-10.4 FL Neutrophils (%) (Auto) 88 H 42-75 % Lymphocytes (%) (Auto) 8 L 12-44 % Monocytes (%) (Auto) 4 0-12 % Eosinophils (%) (Auto) 0 0-10 % Basophils (%) (Auto) 0 0-10 % Neutrophils # (Auto) 14.7 H 1.8-7.8 X 10^3 Lymphocytes # (Auto) 1.4 1.0-4.0 X 10^3 Monocytes # (Auto) 0.7 0.0-1.0 X 10^3 Eosinophils # (Auto) 0.0 0.0-0.3 10^3/uL Basophils # (Auto) 0.0 0.0-0.1 10^3/uL Neutrophils % (Manual) 82 % Lymphocytes % (Manual) 6 % Monocytes % (Manual) 3 % Eosinophils % (Manual) 1 % Basophils % (Manual) 0 % Band Neutrophils 8 % Blood Morphology Comment NORMAL Sodium Level 129 L 135-145 MMOL/L Potassium Level 3.7 3.6-5.0 MMOL/L Chloride Level 91 L 98-107 MMOL/L Carbon Dioxide Level 26 21-32 MMOL/L Anion Gap 12 5-14 MMOL/L Blood Urea Nitrogen 29 H 7-18 MG/DL Creatinine 0.91 0.60-1.30 MG/DL Estimat Glomerular Filtration Rate > 60 BUN/Creatinine Ratio 32 Glucose Level 97 70-105 MG/DL Calcium Level 10.3 H 8.5-10.1 MG/DL Corrected Calcium 10.9 H 8.5-10.1 MG/DL Total Bilirubin 0.9 0.1-1.0 MG/DL Aspartate Amino Transf (AST/SGOT) 77 H 5-34 U/L Alanine Aminotransferase (ALT/SGPT) 47 0-55 U/L Alkaline Phosphatase 194 H 40-136 U/L Total Creatine Kinase 1014 H 29-168 U/L B-Type Natriuretic Peptide 514.6 H <100.0 PG/ML Total Protein 8.7 H 6.4-8.2 GM/DL Albumin 3.2 3.2-4.5 GM/DL Urine Color YELLOW Urine Clarity CLEAR Urine pH 6.5 5-9 Urine Specific [place] 1.010 L 1.016-1.022 Urine Protein 1+ H NEGATIVE Urine Glucose (UA) NEGATIVE NEGATIVE Urine Ketones 1+ H NEGATIVE Urine Nitrite NEGATIVE NEGATIVE Urine Bilirubin 2+ H NEGATIVE Urine Urobilinogen NORMAL NORMAL MG/DL Urine Leukocyte Esterase NEGATIVE NEGATIVE Urine RBC (Auto) 1+ H NEGATIVE Urine RBC RARE /HPF Urine WBC NONE /HPF Urine Squamous Epithelial Cells 2-5 /HPF Urine Crystals NONE /LPF Urine Bacteria NEGATIVE /HPF Urine Casts NONE /LPF Urine Mucus NEGATIVE /LPF Urine Culture Indicated NO My Orders Orders - CARLEE BILLINGS Creatine Kinase (10/12/18 14:43) Comprehensive Metabolic Panel (10/12/18 14:43) Cbc With Automated Diff (10/12/18 14:43) Ua Culture If Indicated (10/12/18 14:43) Ekg Tracing (10/12/18 14:43) Continuous Ekg Monitoring (10/12/18 14:43) Chest 1 View, Ap/Pa Only (10/12/18 14:43) Hip, Left, 2 Views (10/12/18 14:43) Ct Head/Cervical Spine Wo (10/12/18 14:43) BNP (10/12/18 14:43) Ed Iv/Invasive Line Start (10/12/18 14:43) Manual Differential (10/12/18 14:44) Ct Abdomen/Pelvis W (10/12/18 15:16) Ed Iv/Invasive Line Start (10/12/18 15:16) Ns Iv 1000 Ml (Sodium Chloride 0.9%) (10/12/18 15:16) Iohexol Injection (Omnipaque 350 Mg/Ml 1 (10/12/18 15:45) Received Contrast (Hold Metformin- Contr (10/12/18 15:45) Ns (Ivpb) (Sodium Chloride 0.9% Ivpb Bag (10/12/18 15:45) Ns Iv 1000 Ml (Sodium Chloride 0.9%) (10/12/18 17:30) Medications Given in ED Current Medications Medications Dose Ordered Sig/Lisa Route Start Time Stop Time Status Last Admin Dose Admin Iohexol 100 ml ONCE ONCE IV 10/12/18 15:45 10/12/18 15:46 DC 10/12/18 15:38 87 ML Sodium Chloride 100 ml ONCE ONCE IV 10/12/18 15:45 10/12/18 15:46 DC 10/12/18 15:38 80 ML Vital Signs/I&O 10/12/18 14:50 Temp 98.9 Pulse 88 Resp 16 B/P (MAP) 123/71 (88) Pulse Ox 95 O2 Delivery Nasal Cannula O2 Flow Rate 2.00 Progress Progress Note : Time: 15:08 Progress Note Cleared c-collar clinically. Initial ECG Impression Date: Oct 12, 2018 Initial ECG Impression Time: 14:51 Initial ECG Rate: 91 Initial ECG Rhythm: Normal Sinus Initial ECG Intervals: Normal Initial ECG Impression: Normal, Nonspecific Changes Comment Normal sinus rhythm with PVCs. Diagnostic Imaging Diagonstic Imaging: Xray Plain Films/CT/US/NM/MRI: chest (1v) Comments NAME: JUDAH HO REC#: [id number] PT STATUS: REG ER : 1950 PHYSICIAN: CARLEE BILLINGS MD ADMIT DATE: 10/12/18/ER Signed Date of Exam:10/12/18 CHEST 1 VIEW, AP/PA ONLY Indication: Fall with chest pain. Comparison: 05/29/2018. Discussion: Single view of the chest was obtained. Stable normal heart size. No pneumothorax. Small right pleural effusion and consolidation is of uncertain etiology; however, likely related to an adjacent displaced ninth rib fracture. Impression: Posterior right ninth rib fracture with associated small right pleural effusion. No pneumothorax. Dictated by: Dictated on workstation # [id number] Dict: 10/12/18 1604 Trans: 10/12/18 1635 [facility] [id number] Interpreted by: LAURA ROSS MD Electronically signed by: LAURA ROSS MD 10/12/18 1635 Reviewed: Reviewed by Me Diagonstic Imaging: CT Plain Films/CT/US/NM/MRI: c-spine, head Comments NAME: JUDAH HO MED REC#: [id number] PT STATUS: REG ER : 1950 PHYSICIAN: CARLEE BILLINGS MD ADMIT DATE: 10/12/18/ER Signed Date of Exam:10/12/18 CT HEAD/CERVICAL SPINE WO PROCEDURE: CT head and CT cervical spine without contrast. TECHNIQUE: Multiple contiguous axial images were obtained through the brain and cervical spine without the use of intravenous contrast. Sagittal and coronal reformations through the cervical spine were then performed. Auto Exposure Controls were utilized during the CT exam to meet ALARA standards for radiation dose reduction. DATE: October 12, 2018. COMPARISON: MRI brain, September 06, 2018. CT head, August 26, 2017. INDICATION: 67-year-old female, fall. Head and neck pain. FINDINGS: There is nonspecific near-complete opacification of the right maxillary sinus. There is mucosal thickening of the right and left sphenoid sinuses and ethmoidal air cells. The mastoid air cells and middle ears are well aerated, bilaterally. There is no identified skull fracture. There is mild proportional prominence of the ventricles and CSF spaces compatible with mild cerebral volume loss. There is no mass effect or midline shift. There is no acute intracranial hemorrhage. There is no abnormal extra-axial fluid collection. There is no identified facet joint subluxation or dislocation. There are mild facet degenerative changes of the cervical spine. There is a normal variant left-sided ponticulus posticus. There is no asymmetric widening of the cervical disc spaces. There is no prominent prevertebral soft tissue swelling. There is multilevel disc degenerative change of the cervical spine. CT is limited for assessment of disc pathology as well as additional nonbony causes of pathology within the spinal canal. There are arthritic changes at the C1-C2 articulation. There is no identified bone erosion. There is no identified acute fracture of the cervical spine. The visualized portions of the lung apices are clear. There are carotid vascular calcifications. IMPRESSION: 1. No identified acute intracranial abnormality. 2. Nonspecific paranasal sinus opacification. 3. No identified acute posttraumatic abnormality of the cervical spine. 4. Multilevel mild degenerative changes of the cervical spine. Dictated by: Dictated on workstation # [id number] Dict: 10/12/18 1552 Trans: 10/12/18 1608 [facility] [id number] Interpreted by: TYRONE ESPANA MD Electronically signed by: TYRONE ESPANA MD 10/12/18 1608 Reviewed: Reviewed by Me Diagonstic Imaging: CT Plain Films/CT/US/NM/MRI: abdomen, pelvis Comments NAME: JUDAH HO [facility] REC#: [id number] PT STATUS: REG ER : 1950 PHYSICIAN: CARLEE BILLINGS MD ADMIT DATE: 10/12/18/ER Signed Date of Exam:10/12/18 CT ABDOMEN/PELVIS W PROCEDURE: CT abdomen and pelvis with contrast. TECHNIQUE: Multiple contiguous axial images were obtained through the abdomen and pelvis after administration of intravenous contrast. Auto Exposure Controls were utilized during the CT exam to meet ALARA standards for radiation dose reduction. INDICATION: Fall with left hip pain, leukocytosis. COMPARISON: None. DISCUSSION: The lung bases are unremarkable. Normal heart size. No pleural or pericardial fluid. The gallbladder is surgically absent. The liver, pancreas, stomach, spleen, and adrenal glands are unremarkable. No renal stone or hydronephrosis. Uterus is likely surgically absent. Small retroperitoneal hemorrhage is noted on the right which is infiltrating in nature with no large drainable component identified. Mildly displaced inferior left pubic ramus fracture at the pubis symphysis. Additional superior left pubic ramus fracture is also noted near the pubis symphysis. Bilateral sacroiliac fractures are noted in the vertical orientation. There is an additional transverse sacral fracture present at the level of S2-S3 which is offset by approximately 1 cm. Stability of this fracture is indeterminate. Gas and liquid stool is noted throughout the colon. The colon is somewhat distended. No abnormal small bowel loops are identified. The urinary bladder is distended. Additional age-indeterminate mild T12 compression fracture involving the superior endplate, likely acute. IMPRESSION: 1. Acute hematoma noted within the right retroperitoneum which is infiltrating in overall appearance with no dominant drainable component identified. 2. Nondisplaced fractures involving the left inferior and superior pubic rami. Extensive sacral fractures are noted in an H distribution. The transverse fracture is displaced approximately 1 cm. There is an additional fracture line that extends into the right iliac towards the right acetabulum. 3. Mild T12 compression fracture. Dictated by: Dictated on workstation # [id number] Dict: 10/12/18 1558 Trans: 10/12/18 1635 [facility] [id number] Interpreted by: LAURA ROSS MD Electronically signed by: LAURA ROSS MD 10/12/18 1637 Reviewed: Reviewed by Mn Diagonstic Imaging: Xray Plain Films/CT/US/NM/MRI: hip (left) Comments NAME: JUDAH HO [facility] REC#: [id number] PT STATUS: REG ER : 1950 PHYSICIAN: CARLEE BILLINGS MD ADMIT DATE: 10/12/18/ER Signed Date of Exam:10/12/18 HIP, LEFT, 2 VIEWS INDICATION: Fall with left hip pain. COMPARISON: None. DISCUSSION: Two views of left hip are obtained. Nondisplaced fractures involving the medial, inferior and superior pubic rami on the left. Additional sacroiliac fracture is incompletely viewed. No hip fracture, otherwise. IMPRESSION: 1. Fractures are noted involving the left sacral ala and left obturator ring. Dictated by: Dictated on workstation # [id number] Dict: 10/12/18 1605 Trans: 10/12/18 1635 [facility] [id number] Interpreted by: LAURA ROSS MD Electronically signed by: LAURA ROSS MD 10/12/18 1635 Reviewed: Reviewed by Me Consults : Consulting Physician: FABRICIO FERREIRA MD Consults Notes 1700: Departure Communication (Admissions) Time/Spoke to Admitting Phy: 17:05 Dr Lowery, trauma surgery agrees to admit the patient and would like consultation with medicine and orthopedic surgery. Fluids, pain management. Time/Spoke to Consulting Phy: 17:10 1710: Dr. Ferreira, orthopedic surgery agrees this is a nonoperative management of pain and fluids and he will consult in the morning. 1715: Dr. Mariano she would like consult with a PT OT, inpatient rehabilitation facility evaluation, Dr. Sage cardiology, Dr. Burch pulmonology. She is okay with Lovenox. We discussed small pelvic hematoma. 1730: Dr. Sage agrees to consult on the patient. 1730: Dr. Burch agrees to consult on the patient. Impression Primary Impression: Fall Qualified Codes: W19.XXXA - Unspecified fall, initial encounter Additional Impressions: Rhabdomyolysis Qualified Codes: T79.6XXA - Traumatic ischemia of muscle, initial encounter Sacral fracture, closed Qualified Codes: S32.10XA - Unspecified fracture of sacrum, initial encounter for closed fracture Fracture of left pelvis Qualified Codes: S32.502A - Unspecified fracture of left pubis, initial encounter for closed fracture Right rib fracture Qualified Codes: S22.31XA - Fracture of one rib, right side, initial encounter for closed fracture Traumatic retroperitoneal hematoma Qualified Codes: S36.892A - Contusion of other intra-abdominal organs, initial encounter Disposition: ADMITTED INPATIENT Condition: Stable Admissions Decision to Admit Reason: Admit from ER (Trauma) Decision to Admit/Date: Oct 12, 2018 Time/Decision to Admit Time: 17:00 Departure-Patient Inst. Referrals: [facility] (PCP/Family) Primary Care Physician CARLEE BILLINGS Oct 12, 2018 14:47
[2018-10-12 14:54] LABS: BASOPHILS % (AUTO) 0 % (0-10); EOSINOPHILS % (AUTO) 0 % (0-10); HEMATOCRIT 30 % (35-52); HEMOGLOBIN 10.4 G/DL (11.5-16.0); LYMPHOCYTES # (AUTO) 1.4 X 10^3 (1.0-4.0); LYMPHOCYTES % (AUTO) 8 % (12-44); MEAN CORPUSCULAR HEMOGLOBIN 33 PG (25-34); MEAN CORPUSCULAR HGB CONC 34 G/DL (32-36); MEAN CORPUSCULAR VOLUME 96 FL (80-99); MEAN PLATELET VOLUME 8.8 FL (7.4-10.4); MONOCYTES # (AUTO) 0.7 X 10^3 (0.0-1.0); MONOCYTES % (AUTO) 4 % (0-12); NEUTROPHILS # (AUTO) 14.7 X 10^3 (1.8-7.8); NEUTROPHILS % (AUTO) 88 % (42-75); PLATELET COUNT 267 10^3/uL (130-400); RED CELL DISTRIBUTION WIDTH 12.3 % (10.0-14.5); WHITE BLOOD COUNT 16.8 10^3/uL (4.3-11.0)
--- NOTE | 2018-10-12 15:08 | NUR ---
C COLLAR REMOVED BY DR BILLINGS.
[2018-10-12 15:16] LABS: ALANINE AMINOTRANSFERASE 47 U/L (0-55); ALBUMIN 3.2 GM/DL (3.2-4.5); ALKALINE PHOSPHATASE 194 U/L (40-136); BAND NEUTROPHILS 8 %; BASOPHILS % (MANUAL) 0 %; BILIRUBIN,TOTAL 0.9 MG/DL (0.1-1.0); BUN/CREATININE RATIO 32; CALCIUM 10.3 MG/DL (8.5-10.1); CARBON DIOXIDE 26 MMOL/L (21-32); CHLORIDE 91 MMOL/L (98-107); CREATINE KINASE 1014 U/L (29-168); CREATININE SERUM 0.91 MG/DL (0.60-1.30); EOSINOPHILS % (MANUAL) 1 %; GFR ESTIMATED > 60; GLUCOSE 97 MG/DL (70-105); LYMPHOCYTES % (MANUAL) 6 %; MONOCYTES % (MANUAL) 3 %; NEUTROPHILS % (MANUAL) 82 %; POTASSIUM 3.7 MMOL/L (3.6-5.0); RBC MORPH NORMAL; SODIUM 129 MMOL/L (135-145); TOTAL PROTEIN 8.7 GM/DL (6.4-8.2)
[2018-10-12] MEDS ORDERED: NS IV 1000 ML 1,000 ML IV SCH ×2 (15:16→17:30)
[2018-10-12] MEDS ORDERED: HOLD METFORMIN - RECEIVED CONTRAST 20 ML VIAL IV SCH (15:45)
[2018-10-12] MEDS ORDERED: IOHEXOL 350 MG/ML 100 ML (OMNIPAQUE 350) VIAL IV ONE (15:45)
[2018-10-12] MEDS ORDERED: NS 100 ML (IVPB) BAG IV ONE (15:45)
--- NOTE | 2018-10-12 16:00 | NUR ---
PT RESTING IN BED. DAUGHTER AT BEDSIDE. PT STATES THERE IS NOTHING SHE NEEDS AT THIS TIME.
--- NOTE | 2018-10-12 16:06 | Diagnostic Imaging Report ---
PROCEDURE: CT head and CT cervical spine without contrast. TECHNIQUE: Multiple contiguous axial images were obtained through the brain and cervical spine without the use of intravenous contrast. Sagittal and coronal reformations through the cervical spine were then performed. Auto Exposure Controls were utilized during the CT exam to meet ALARA standards for radiation dose reduction. DATE: October 12, 2018. COMPARISON: MRI brain, September 06, 2018. CT head, August 26, 2017. INDICATION: 67-year-old female, fall. Head and neck pain. FINDINGS: There is nonspecific near-complete opacification of the right maxillary sinus. There is mucosal thickening of the right and left sphenoid sinuses and ethmoidal air cells. The mastoid air cells and middle ears are well aerated, bilaterally. There is no identified skull fracture. There is mild proportional prominence of the ventricles and CSF spaces compatible with mild cerebral volume loss. There is no mass effect or midline shift. There is no acute intracranial hemorrhage. There is no abnormal extra-axial fluid collection. There is no identified facet joint subluxation or dislocation. There are mild facet degenerative changes of the cervical spine. There is a normal variant left-sided ponticulus posticus. There is no asymmetric widening of the cervical disc spaces. There is no prominent prevertebral soft tissue swelling. There is multilevel disc degenerative change of the cervical spine. CT is limited for assessment of disc pathology as well as additional nonbony causes of pathology within the spinal canal. There are arthritic changes at the C1-C2 articulation. There is no identified bone erosion. There is no identified acute fracture of the cervical spine. The visualized portions of the lung apices are clear. There are carotid vascular calcifications. IMPRESSION: 1. No identified acute intracranial abnormality. 2. Nonspecific paranasal sinus opacification. 3. No identified acute posttraumatic abnormality of the cervical spine. 4. Multilevel mild degenerative changes of the cervical spine. Dictated by: Dictated on workstation # [id number]
--- NOTE | 2018-10-12 16:10 | Diagnostic Imaging Report ---
PROCEDURE: CT abdomen and pelvis with contrast. TECHNIQUE: Multiple contiguous axial images were obtained through the abdomen and pelvis after administration of intravenous contrast. Auto Exposure Controls were utilized during the CT exam to meet ALARA standards for radiation dose reduction. INDICATION: Fall with left hip pain, leukocytosis. COMPARISON: None. DISCUSSION: The lung bases are unremarkable. Normal heart size. No pleural or pericardial fluid. The gallbladder is surgically absent. The liver, pancreas, stomach, spleen, and adrenal glands are unremarkable. No renal stone or hydronephrosis. Uterus is likely surgically absent. Small retroperitoneal hemorrhage is noted on the right which is infiltrating in nature with no large drainable component identified. Mildly displaced inferior left pubic ramus fracture at the pubis symphysis. Additional superior left pubic ramus fracture is also noted near the pubis symphysis. Bilateral sacroiliac fractures are noted in the vertical orientation. There is an additional transverse sacral fracture present at the level of S2-S3 which is offset by approximately 1 cm. Stability of this fracture is indeterminate. Gas and liquid stool is noted throughout the colon. The colon is somewhat distended. No abnormal small bowel loops are identified. The urinary bladder is distended. Additional age-indeterminate mild T12 compression fracture involving the superior endplate, likely acute. IMPRESSION: 1. Acute hematoma noted within the right retroperitoneum which is infiltrating in overall appearance with no dominant drainable component identified. 2. Nondisplaced fractures involving the left inferior and superior pubic rami. Extensive sacral fractures are noted in an H distribution. The transverse fracture is displaced approximately 1 cm. There is an additional fracture line that extends into the right iliac towards the right acetabulum. 3. Mild T12 compression fracture. Dictated by: Dictated on workstation # [id number]
--- NOTE | 2018-10-12 16:10 | Diagnostic Imaging Report ---
Indication: Fall with chest pain. Comparison: 05/29/2018. Discussion: Single view of the chest was obtained. Stable normal heart size. No pneumothorax. Small right pleural effusion and consolidation is of uncertain etiology; however, likely related to an adjacent displaced ninth rib fracture. Impression: Posterior right ninth rib fracture with associated small right pleural effusion. No pneumothorax. Dictated by: Dictated on workstation # [id number]
--- NOTE | 2018-10-12 16:11 | Diagnostic Imaging Report ---
INDICATION: Fall with left hip pain. COMPARISON: None. DISCUSSION: Two views of left hip are obtained. Nondisplaced fractures involving the medial, inferior and superior pubic rami on the left. Additional sacroiliac fracture is incompletely viewed. No hip fracture, otherwise. IMPRESSION: 1. Fractures are noted involving the left sacral ala and left obturator ring. Dictated by: Dictated on workstation # [id number]
[2018-10-12 16:40] LABS: CLARITY,URINE CLEAR; COLOR,URINE YELLOW; GLUCOSE, URINE (UA) NEGATIVE (NEGATIVE); KETONES,URINE 1+ (NEGATIVE); LEUKOCYTE ESTERASE ,URINE NEGATIVE (NEGATIVE); NITRITE,URINE NEGATIVE (NEGATIVE); PH,URINE 6.5 (5-9); PROTEIN,URINE 1+ (NEGATIVE); UROBILINOGEN,URINE NORMAL (NORMAL)
[2018-10-12 16:49] LABS: BACTERIA,URINE NEGATIVE /HPF; BILIRUBIN,URINE 2+ (NEGATIVE); RBC,URINE RARE /HPF
--- NOTE | 2018-10-12 17:06 | NUR ---
PT RESTING. STATES NO PAIN LONG SHE DOES NOT TRY TO MOVE LEGS.
[2018-10-12] MEDS ORDERED: fentaNYL INJECTION 100 MCG/2 ML AMP IVP ONE (17:45)
[2018-10-12 18:30] VITALS: BP 120/68
[2018-10-12 20:00] VITALS: BP 114/67
[2018-10-12] MEDS ORDERED: HYDROcodone/APAP 5 MG/325 MG (LORTAB) TAB PO PRN (20:15)
[2018-10-12] MEDS ORDERED: ONDANSETRON 4 MG/2 ML (SDV) Z0FRAN IV PRN (20:15)
[2018-10-12] MEDS ORDERED: ACETAMINOPHEN 325 MG TABLET PO PRN (20:15)
[2018-10-12] MEDS ORDERED: PROMETHAZINE 25 MG (PHENERGAN) TAB PO PRN (20:30)
[2018-10-12] MEDS ORDERED: ZOLPIDEM 5 MG (AMBIEN) TAB PO PRN (20:30)
[2018-10-12] MEDS ORDERED: ENOXAPARIN 40 MG/0.4 ML (LOVENOX) SYR SC SCH (21:00)
[2018-10-12] MEDS ORDERED: OLANZapine 5 MG (ZyPREXA) TAB PO SCH (21:00)
[2018-10-12] MEDS ORDERED: GABAPENTIN 100 MG (NEURONTIN) CAP PO SCH (21:00)
[2018-10-12] MEDS ORDERED: ZOLPIDEM 5 MG (AMBIEN) TAB PO ONE (21:30)
--- NOTE | 2018-10-12 23:20 | HISTORY AND PHYSICAL ---
DATE OF SERVICE: ATTENDING PRIMARY RFP WRITER: DEBORAH Salvador at [facility]. HISTORY OF PRESENT ILLNESS: The patient is a 67-year-old female who was brought to [facility] by EMS after a fall at her house. She has had issues with dizziness and vertigo for the past several months. She gets around her duplex with a walker. She states that she has had multiple falls here in recent months as well. She states that she is going to the bathroom she felt the issue vertigo and fell to the right side. She was on the floor for approximately 2 hours and her daughter found her and brought her in. She does not report hitting her head as well as no loss of consciousness. Her chief complaint is pain along the right lower and lateral chest as well as the suprapubic region and hip. There is no instability of the hips. Her Cathy coma scale is 15. X-rays did show a posterior right 9th rib fracture and a CT of the pelvis did show a right retroperitoneal hematoma as well as a nondisplaced fracture of the left inferior and superior pubic ramus. There is also a sacral fracture with mild displacement of 1 cm. There is a mild T12 compression fracture. PAST MEDICAL HISTORY: Bipolar disorder, gastroesophageal reflux disease, chronic constipation, diverticulosis, Hurt's palsy, expressive aphasia, hypertension and asthma. PAST SURGICAL HISTORY: Laparoscopic cholecystectomy, hysterectomy, thyroidectomy. ALLERGIES: PREGABALIN. MEDICATIONS: Albuterol 2 puffs q.i.d., budesonide 2 puffs b.i.d., cetirizine 10 mg daily, conjugated estrogen 0.9 mg daily, fluticasone 16 grams spray b.i.d., gabapentin 300 mg t.i.d., hydrochlorothiazide 25 mg daily, isosorbide mononitrate 60 mg daily, lamotrigine 100 mg daily, levothyroxine 50 mcg daily, magnesium 400 mg q.i.d. p.r.n., montelukast 10 mg daily, nitrofurantoin 100 mg b.i.d., olanzapine 20 mg daily, olopatadine eye drops b.i.d., omeprazole 40 mg daily. SOCIAL HISTORY: Negative smoke, negative alcohol. FAMILY HISTORY: Father and mother, lung cancer. VITAL SIGNS: Temperature 97.6, blood pressure 114/67, pulse 84, respirations 13, pulse ox 96% on 2 liters nasal cannula. REVIEW OF SYSTEMS: Well-nourished female, currently in no acute distress. She is not experiencing any shortness of breath or difficulty breathing. No chest pain, palpitations, diaphoresis. No nausea, vomiting. No diarrhea or constipation. She has had vertigo and multiple falls in the past several months. She had a recent fall on her right side, which was a same level fall. No loss of consciousness. No fever, chills. No recent inadvertent weight loss. No focal deficits. Moves all four extremities purposefully upon command. All other review of systems negative. PHYSICAL EXAMINATION: CHEST: A few scattered rales and rhonchi bilaterally. HEART: Regular, no murmurs. EXTREMITIES: No lower extremity edema, negative Homans sign. She does have pain upon palpation of the suprapubic region. There is no pelvic instability or open book fracture. HEENT: No scleral icterus. NECK: No cervical lymphadenopathy. No neck pain. ABDOMEN: Soft. There is mild discomfort in the suprapubic region. SKIN: Warm, dry. NEUROLOGIC: [place] coma scale 15. No focal deficits. ASSESSMENT AND PLAN: A 67-year-old female with same level fall with a pubic ramus fracture and a right ninth rib fracture as well as a sacral fracture. We will consult orthopedic surgery. She will also need more than likely have extensive rehabilitation. She will also need DVT prophylaxis as well as prophylaxis for atelectasis and pneumonia with early ambulation as well as incentive spirometer and breathing treatments. She may need further evaluation as well as potential inpatient rehabilitation eventually. We will also start prophylactic antibiotics for increased risk factors for pulmonary complications with Levaquin. Job ID: [id number] DocumentID: [id number] Dictated Date: 10/12/2018 22:37:22 Tree Expert Date: 10/12/2018 23:20:18 Dictated By: JAIME KIRKLAND MD
[2018-10-13] VITALS: BP 105/63
[2018-10-13 04:00] VITALS: BP 123/64
[2018-10-13] MEDS: NS IV 1000 ML 1,000 ML IV SCH ×2 (05:06→05:09)
[2018-10-13 05:47] LABS: BASOPHILS % (AUTO) 0 % (0-10); EOSINOPHILS % (AUTO) 0 % (0-10); HEMATOCRIT 28 % (35-52); HEMOGLOBIN 9.2 G/DL (11.5-16.0); LYMPHOCYTES # (AUTO) 2.5 X 10^3 (1.0-4.0); LYMPHOCYTES % (AUTO) 19 % (12-44); MEAN CORPUSCULAR HEMOGLOBIN 33 PG (25-34); MEAN CORPUSCULAR HGB CONC 33 G/DL (32-36); MEAN CORPUSCULAR VOLUME 98 FL (80-99); MONOCYTES # (AUTO) 0.7 X 10^3 (0.0-1.0); MONOCYTES % (AUTO) 5 % (0-12); NEUTROPHILS % (AUTO) 76 % (42-75); PLATELET COUNT 236 10^3/uL (130-400); RED CELL DISTRIBUTION WIDTH 12.3 % (10.0-14.5); WHITE BLOOD COUNT 13.2 10^3/uL (4.3-11.0)
--- NOTE | 2018-10-13 05:59 | Pulmonary Consultation ---
History of Present Illness History of Present Illness Date of Consultation 10/13/18 05:52 Date of Admission Allergies and Home Medications Allergies Coded Allergies: pregabalin (Verified Allergy, Unknown, HIVES, 09/17/14) Home Medications Acetaminophen 500 Mg Tablet, 500-1,000 MG PO Q6H PRN for PAIN-MILD, (Reported) Albuterol Sulfate 1 Puff Puff, 2 PUFF INH QID PRN for SHORTNESS OF BREATH, (Reported) Budesonide/Formoterol Fumarate 10.2 Gm Hfa.aer.ad, 2 PUFF INH BID, (Reported) Cetirizine HCl 10 Mg Tablet, 10 MG PO DAILY PRN for ALLERGIES, (Reported) Estrogens, Conjugated 0.9 Mg Tablet, 0.9 MG PO DAILY, (Reported) Fluticasone Propionate 16 Gm [place].susp, 2 SPRAYS NS BID, (Reported) Gabapentin 300 Mg Capsule, 300 MG PO TID, (Reported) Hydrochlorothiazide 25 Mg Tablet, 25 MG PO DAILY, (Reported) Ibuprofen 800 Mg Tablet, 600 MG PO TID PRN for PAIN-MILD Prescribed by: TAMMY CANNON on 08/29/17 1051 Isosorbide Mononitrate 60 Mg Tab, 60 MG PO HS, (Reported) Lamotrigine 100 Mg Tablet, 100 MG PO DAILY, (Reported) Levothyroxine Sodium 50 Mcg Tablet, 50 MCG PO DAILY, (Reported) Magnesium Hydroxide 400 Mg/5 Ml Oral.susp, 5-15 MG PO QID PRN for CONSTIPATION- 7TH LINE, (Reported) Montelukast Sodium 10 Mg Tablet, 10 MG PO HS, (Reported) Olanzapine 20 Mg Tablet, 20 MG PO DAILY, (Reported) Olopatadine HCl 5 Ml Drops, 1 DROP OU BID, (Reported) Omeprazole 40 Mg Capsule.dr, 40 MG PO DAILY, (Reported) Past Tazipob-Cgrjlh-Hqgsoj Hx Patient Social History Alcohol Use: Denies Use Recreational Drug Use: No Smoking Status: Never a Smoker 2nd Hand Smoke Exposure: No Recent Foreign Travel: No Contact w/Someone Who Travel: No Recent Infectious Disease Expo: No Recent Hopitalizations: No (pt unable to provide current hx, all hx obtained through old records) Physical Abuse: No Sexual Abuse: No Mistreated: No Fear: No Immunizations Up To Date Tetanus Booster (TDap): Less than 5yrs Date of Pneumonia Vaccine: Feb 12, 2011 Seasonal Allergies Seasonal Allergies: Yes Past Medical History Surgeries: Yes (I&D OF SPIDER BITES, thyroid nodules, l shoulder) Gallbladder, Hysterectomy, Thyroidectomy Respiratory: Yes Asthma Cardiac: Yes Hypertension Neurological: Yes (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, current expressive aphasia) Reproductive Disorders: No Genitourinary: No Gastrointestinal: Yes (esophageal dilitation every 6 months) Gastroesophageal Reflux, Chronic Constipation, Diverticulosis, Gall Bladder Disease Musculoskeletal: Yes Degenerate Disk Disease, Arthritis, Scoliosis Endocrine: Yes Hypothyroidsim HEENT: Yes Cataract Loss of Vision: Denies Hearing Impairment: Denies Cancer: No Psychosocial: Yes Anxiety, Bipolar Integumentary: No Blood Disorders: No Family Medical History Cardiovascular disease 19 FATHER 19 MOTHER Completed stroke 19 FATHER Diabetes mellitus G8 BROTHER FH: lung cancer 19 FATHER 19 MOTHER Myocardial infarction 19 MOTHER Psychiatric Problems Sepsis Event Evaluation Height, Weight, BMI Height: 5'3.00" Weight: 153lbs. 0.0oz. 69.933982kh; 27.1 BMI Method:Stated Exam Exam Vital Signs Date Time Temp Pulse Resp B/P (MAP) Pulse Ox O2 Delivery O2 Flow Rate FiO2 10/13/18 04:00 95 Nasal Cannula 2.50 10/13/18 04:00 85 12 123/64 (83) 99 Nasal Cannula 2.50 10/13/18 03:18 96.7 10/13/18 01:00 83 10/13/18 00:00 85 12 105/63 (77) 100 Nasal Cannula 2.50 10/13/18 00:00 98 Nasal Cannula 2.50 10/12/18 21:00 96 Nasal Cannula 2.50 10/12/18 20:00 96.7 84 13 114/67 (83) 96 Nasal Cannula 2.50 10/12/18 20:00 96 Nasal Cannula 2.50 10/12/18 19:00 87 10/12/18 18:59 92 Nasal Cannula 2.50 10/12/18 18:30 94 10 120/68 (85) 90 Nasal Cannula 2.50 10/12/18 18:20 78 17 122/71 (88) 97 Nasal Cannula 2.00 10/12/18 14:50 98.9 88 16 123/71 (88) 95 Nasal Cannula 2.00 I & O 10/13/18 07:00 Intake Total 2940 ml Output Total 1150 ml Balance 1790 ml Height & Weight Height: 5'3.00" Weight: 153lbs. 0.0oz. 69.668350ws; 27.1 BMI Method:Stated Capillary Refill: Less Than 3 Seconds Peripheral Pulses: 2+ Dorsalis Pedis (R), 2+ Left Dors-Pedis (L), 2+ Radial Pulses (R), 2+ Radial Pulses (L) Gastrointestinal: normal bowel sounds, soft, tenderness (for quadrant. Exquisitely tender to palpation) Results Lab Laboratory Tests 10/12/18 14:44 Assessment/Plan Assessment/Plan S/p Fall Pubic ramus fracture and sacral fracture Right ninth rib fracture -Orthopedic fracture rhabdomyolysis -IVF -repeat CPK - Probable CATA -Out pt testing -Witnessed nocturnal hypoxia Leukocytosis - probably reactive -Guerrero culture -No fever -Improving without Abx AICHA HART DO Oct 13, 2018 05:59
[2018-10-13 06:18] LABS: ALANINE AMINOTRANSFERASE 33 U/L (0-55); ALBUMIN 2.6 GM/DL (3.2-4.5); ALKALINE PHOSPHATASE 119 U/L (40-136); BILIRUBIN,TOTAL 0.4 MG/DL (0.1-1.0); BUN/CREATININE RATIO 29; CALCIUM 9.4 MG/DL (8.5-10.1); CARBON DIOXIDE 24 MMOL/L (21-32); CHLORIDE 100 MMOL/L (98-107); CREATININE SERUM 0.68 MG/DL (0.60-1.30); GFR ESTIMATED > 60; GLUCOSE 77 MG/DL (70-105); POTASSIUM 3.4 MMOL/L (3.6-5.0); SODIUM 134 MMOL/L (135-145); TOTAL PROTEIN 6.9 GM/DL (6.4-8.2)
[2018-10-13] MEDS ORDERED: LEVOTHYROXINE 50 MCG (LEVOTHROID) TAB PO SCH (06:30)
[2018-10-13 08:00] VITALS: BP 106/78
--- NOTE | 2018-10-13 08:21 | Diagnostic Imaging Report ---
INDICATION: Rib fracture. FINDINGS: There is cardiomegaly. There is minimal bibasilar subsegmental atelectasis and/or pneumonitis. There is no pleural effusion or pneumothorax. Mediastinum is unremarkable. IMPRESSION: Cardiomegaly and some bibasilar subsegmental atelectasis and/or pneumonitis. Dictated by: Dictated on workstation # [id number]
[2018-10-13] MEDS: fentaNYL INJECTION 100 MCG/2 ML AMP IV PRN ×3 (08:50→14:15)
--- NOTE | 2018-10-13 08:52 | Consultation-Cardiology ---
HPI-Cardiology Cardiology Consultation Date of Consultation 10/13/18 Date of Admission Time Seen by Provider: 08:46 Indication: Hypertension HPI 67-year-old lady with history of hypertension, gastroesophageal reflux and chest pain. Had unsteady gait for the past 6 months, multiple falls, had the latest fall at home resulted in multiple fracture to her pelvis and sacral area. In addition to ninth rib fracture. She denied any syncope, has been having occasional chest pain for which workup was included gastroesophageal reflux disease and she was started on Imdur. Did not have any cardiac workup done in the past. She denied any palpitation. No shortness of breath. No pedal edema Home Medications & Allergies Allergies: Coded Allergies: pregabalin (Verified Allergy, Unknown, HIVES, 09/17/14) Home Medication List Reviewed: Yes LYZ-Gjgwli-Yhorez Hx Patient Social History Marital Status: Employed/Student: retired Alcohol Use: Denies Use Recreational Drug Use: No Smoking Status: Never a Smoker 2nd Hand Smoke Exposure: No Recent Foreign Travel: No Recent Infectious Disease Expo: No Recent Hopitalizations: No (pt unable to provide current hx, all hx obtained through old records) Immunizations Up To Date Tetanus Booster (TDap): Less than 5yrs Date of Pneumonia Vaccine: Feb 12, 2011 Past Medical History Discussed below Family Medical History Significant Family History: Psychiatric Problems Family History: Cardiovascular disease 19 FATHER 19 MOTHER Completed stroke 19 FATHER Diabetes mellitus G8 BROTHER FH: lung cancer 19 FATHER 19 MOTHER Myocardial infarction 19 MOTHER Review of Systems-General Review of Systems Constitutional: No chills; dizziness; No fever; malaise, weakness EENTM: see HPI, no symptoms reported Respiratory: see HPI; No cough, No dyspnea on exertion, No hemoptysis, No orthopnea, No phlegm, No short of breath, No stridor, No wheezing, No other Cardiovascular: see HPI; No chest pain, No edema, No palpitations Gastrointestinal: see HPI; No abdominal pain, No constipation, No diarrhea; heartburn Genitourinary: see HPI; No dysuria, No frequency Musculoskeletal: see HPI, back pain, joint pain, other (Pelvic pain) Skin: no symptoms reported, see HPI Psychiatric/Neurological: See HPI, Paresthesia, Other (Restless leg syndrome) Reviewed Test Results Reviewed Test Results Lab Laboratory Tests Test 10/12/18 14:44 10/12/18 16:35 10/13/18 05:35 10/13/18 06:29 Range/Units White Blood Count 16.8 H 13.2 H 4.3-11.0 10^3/uL Red Blood Count 3.16 L 2.81 L 4.35-5.85 10^6/uL Hemoglobin 10.4 L 9.2 L 11.5-16.0 G/DL Hematocrit 30 L 28 L 35-52 % Mean Corpuscular Volume 96 98 80-99 FL Mean Corpuscular Hemoglobin 33 33 25-34 PG Mean Corpuscular Hemoglobin Concent 34 33 32-36 G/DL Red Cell Distribution Width 12.3 12.3 10.0-14.5 % Platelet Count 267 236 130-400 10^3/uL Mean Platelet Volume 8.8 9.0 7.4-10.4 FL Neutrophils (%) (Auto) 88 H 76 H 42-75 % Lymphocytes (%) (Auto) 8 L 19 12-44 % Monocytes (%) (Auto) 4 5 0-12 % Eosinophils (%) (Auto) 0 0 0-10 % Basophils (%) (Auto) 0 0 0-10 % Neutrophils # (Auto) 14.7 H 10.0 H 1.8-7.8 X 10^3 Lymphocytes # (Auto) 1.4 2.5 1.0-4.0 X 10^3 Monocytes # (Auto) 0.7 0.7 0.0-1.0 X 10^3 Eosinophils # (Auto) 0.0 0.0 0.0-0.3 10^3/uL Basophils # (Auto) 0.0 0.0 0.0-0.1 10^3/uL Neutrophils % (Manual) 82 % Lymphocytes % (Manual) 6 % Monocytes % (Manual) 3 % Eosinophils % (Manual) 1 % Basophils % (Manual) 0 % Band Neutrophils 8 % Blood Morphology Comment NORMAL Sodium Level 129 L 134 L 135-145 MMOL/L Potassium Level 3.7 3.4 L 3.6-5.0 MMOL/L Chloride Level 91 L 100 98-107 MMOL/L Carbon Dioxide Level 26 24 21-32 MMOL/L Anion Gap 12 10 5-14 MMOL/L Blood Urea Nitrogen 29 H 20 H 7-18 MG/DL Creatinine 0.91 0.68 0.60-1.30 MG/DL Estimat Glomerular Filtration Rate > 60 > 60 BUN/Creatinine Ratio 32 29 Glucose Level 97 77 70-105 MG/DL Calcium Level 10.3 H 9.4 8.5-10.1 MG/DL Corrected Calcium 10.9 H 10.5 H 8.5-10.1 MG/DL Total Bilirubin 0.9 0.4 0.1-1.0 MG/DL Aspartate Amino Transf (AST/SGOT) 77 H 44 H 5-34 U/L Alanine Aminotransferase (ALT/SGPT) 47 33 0-55 U/L Alkaline Phosphatase 194 H 119 40-136 U/L Total Creatine Kinase 1014 H 530 H 29-168 U/L B-Type Natriuretic Peptide 514.6 H <100.0 PG/ML Total Protein 8.7 H 6.9 6.4-8.2 GM/DL Albumin 3.2 2.6 L 3.2-4.5 GM/DL Urine Color YELLOW Urine Clarity CLEAR Urine pH 6.5 5-9 Urine Specific [place] 1.010 L 1.016-1.022 Urine Protein 1+ H NEGATIVE Urine Glucose (UA) NEGATIVE NEGATIVE Urine Ketones 1+ H NEGATIVE Urine Nitrite NEGATIVE NEGATIVE Urine Bilirubin 2+ H NEGATIVE Urine Urobilinogen NORMAL NORMAL MG/DL Urine Leukocyte Esterase NEGATIVE NEGATIVE Urine RBC (Auto) 1+ H NEGATIVE Urine RBC RARE /HPF Urine WBC NONE /HPF Urine Squamous Epithelial Cells 2-5 /HPF Urine Crystals NONE /LPF Urine Bacteria NEGATIVE /HPF Urine Casts NONE /LPF Urine Mucus NEGATIVE /LPF Urine Culture Indicated NO Lactic Acid Level 0.81 0.50-2.00 MMOL/L Physical Exam Physical Exam Vital Signs Vital Signs - First Documented 10/12/18 14:50 Temp 98.9 Pulse 88 Resp 16 B/P (MAP) 123/71 (88) Pulse Ox 95 O2 Delivery Nasal Cannula O2 Flow Rate 2.00 Capillary Refill : Less Than 3 SecondsLess Than 3 Seconds Height, Weight, BMI Height: 5'3.00" Weight: 158lbs. 0.5oz. 71.398425zb; 27.1 BMI Method:Stated General Appearance: No Apparent Distress, WD/WN Eyes: Bilateral Eye Normal Inspection, Bilateral Eye PERRL, Bilateral Eye EOMI HEENT: PERRL/EOMI, TMs Normal, Normal ENT Inspection, Pharynx Normal, Moist Mucous Membranes Neck: Full Range of Motion, Normal Inspection, Non Tender, Supple, Carotid Bruit Respiratory: Normal Breath Sounds, No Accessory Muscle Use, No Respiratory Distress, Other (And rib fracture) Cardiovascular: Regular Rate, Rhythm, No Edema, No Gallop, No JVD, No Murmur, Normal Peripheral Pulses Gastrointestinal: Normal Bowel Sounds, No Organomegaly, No Pulsatile Mass, Non Tender, Soft Back: Normal Inspection, Other (Sacral fracture, rib fracture) Extremity: Normal Capillary Refill, Normal Inspection, Normal Range of Motion, Non Tender, No Calf Tenderness, No Pedal Edema Neurologic/Psychiatric: Alert, Oriented x3, No Motor/Sensory Deficits, Normal Mood/Affect Skin: Normal Color, Warm/Dry Lymphatic: No Adenopathy A/P-Cardiology Admission Diagnosis Pelvic fracture Chest pain Hypertension Restless leg syndrome Assessment/Plan Status post fall with pelvic and sacral fracture in addition to 9th right rib fracture, no syncope, managed by orthopedic surgeon, starting physical therapy Chest pain, reporting occasional episode of chest pain not related to exertion, EKG did not show any acute abnormality. Currently having reproducible chest pain due to rib fracture. Has been on Imdur for no known reason other than hypertension. I will evaluate echocardiogram. Monitor at this time. Hypertension, controlled on current medication, continue to monitor, add low- dose beta blockers Unsteady gait, generalized weakness, multiple falls, history of restless leg syndrome maintained on Neurontin and managed by primary care team. History of hysterectomy. Family history of atherosclerotic disease Preoperative cardiac evaluation, patient does not recall having any previous cardiac history, she is considered at intermediate risk for perioperative cardiovascular complications, decision regarding the surgery, risks versus benefit is deferred to the surgeon Clinical Quality Measures DVT/VTE Risk/Contraindication: Risk Factor Score Per Nursin RFS Level Per Nursing on Admit: 4+=Very High MADDIE WALL MD Oct 13, 2018 08:52
[2018-10-13] MEDS ORDERED: LEVOFLOXACIN 750 MG/150 ML IV 150 ML IV SCH (09:00)
--- NOTE | 2018-10-13 09:38 | NUR ---
PT REQUESTING "SOMETHING STRONGER FOR PAIN" DR KIRKLAND NOTIFIED AND NEW ORDERS RECEIVED. SEE ORDER HX
--- NOTE | 2018-10-13 09:45 | Consultation - Ortho ---
Consult - Ortho Subjective Date of Exam 10/13/18 Chief Complaint Pelvis fractures HPI/Events since last exam The patient is a 67-year-old white female who fell yesterday. She stated she was dizzy and was crawling to get to her walker which she uses because of unsteadiness and dizziness. When she did get her a walker she started using it and was walking and then she fell landing onto her right side. She was found by her daughter after lying on the floor for a few hours. She was brought the emergency room. [facility] where she was evaluated and x-rayed. She is noted to have sacral fractures as well as inferior and superior. Rami fractures on the left. She also has a rib fracture on the right. She is admitted for further evaluation and treatment. She denies any previous problems with her pelvis or hips. She has had some low back pain in the past. Again she is a walker did unsteadiness. She states she's having some funny feelings in the legs although she can be real specific. She has pain with any motion of the lower legs mainly in the hip reg ion bilateral She denies any pain in the neck, upper back or upper extremities. Medical, Surgical History Reviewed and no additions or changes Social History Reviewed and no additions or changes Family History Reviewed and no additions or changes Review of Systems Reviewed and no additions or changes. Again her orthopedic history is negative except for low back pain Allergies: Coded Allergies: pregabalin (Verified Allergy, Unknown, HIVES, 09/17/14) Home Meds Active Scripts Ibuprofen (Ibuprofen) 800 Mg Tablet, 600 MG PO TID PRN for PAIN-MILD for 30 Days, TAB Prov:TAMMY CANNON MD 08/29/17 Reported Medications Magnesium Hydroxide (Milk of Magnesia) 400 Mg/5 Ml Oral.susp, 5-15 MG PO QID PRN for CONSTIPATION-7TH LINE, ML 08/28/17 Olopatadine HCl (Olopatadine HCl) 5 Ml Drops, 1 DROP OU BID, AGA 08/28/17 Omeprazole (Omeprazole) 40 Mg Capsule.dr, 40 MG PO DAILY, CAP 08/28/17 Fluticasone Propionate (Fluticasone Propionate) 16 Gm [place].susp, 2 SPRAYS NS BID, EA 08/28/17 Albuterol Sulfate (PROAIR HFA) 1 Puff Puff, 2 PUFF INH QID PRN for SHORTNESS OF BREATH, INHALER 08/28/17 Budesonide/Formoterol Fumarate (Symbicort 80-4.5 Mcg Inhaler) 10.2 Gm Hfa.aer.ad, 2 PUFF INH BID, INHALER 08/28/17 Gabapentin (Gabapentin) 300 Mg Capsule, 300 MG PO TID, CAP 08/28/17 Montelukast Sodium (Montelukast Sodium) 10 Mg Tablet, 10 MG PO HS, TAB 08/28/17 Isosorbide Mononitrate (Isosorbide Mononitrate ER) 60 Mg Tab, 60 MG PO HS, TAB 08/28/17 Cetirizine HCl (Cetirizine HCl) 10 Mg Tablet, 10 MG PO DAILY PRN for ALLERGIES, TAB 08/28/17 Hydrochlorothiazide (Hydrochlorothiazide) 25 Mg Tablet, 25 MG PO DAILY, TAB 08/28/17 Levothyroxine Sodium (Levothyroxine Sodium) 50 Mcg Tablet, 50 MCG PO DAILY, TAB 08/28/17 Estrogens, Conjugated (Premarin) 0.9 Mg Tablet, 0.9 MG PO DAILY, TAB 08/28/17 Acetaminophen (Pain Relief Extra Strength) 500 Mg Tablet, 500-1000 MG PO Q6H PRN for PAIN-MILD, TAB 09/17/14 Olanzapine (Olanzapine) 20 Mg Tablet, 20 MG PO DAILY, TAB 09/17/14 Lamotrigine (Lamotrigine) 100 Mg Tablet, 100 MG PO DAILY, TAB 09/17/14 Discontinued Scripts Nitrofurantoin Macrocrystal (Nitrofurantoin) 100 Mg Capsule, 100 MG PO BID for 7 Days, #14 CAP Prov:TAMMY CANNON MD 08/29/17 Objective Exam Constitutional: [] HEENT: [] Neck: [No pain with palpation. She can lift her head up off the bed without pain. No pain in the cervical paraspinous musculature trapezius bilateral.] Cardiovascular: [] Respiratory: [] Gastrointestinal: [] Genitourinary: [] Skin: [] Back/Spine: [No lower back pain with palpation. She does have pain over the sacrum with palpation.] Extremities: [Upper extremitiesshe has full range of motion of the shoulders, elbows, wrists and hands. Normal sensation to the fingers and thumb with good capillary refill. Symmetrical radial pulses. No crepitation or deformity. Lower extremitiesshe has pain on palpation over the greater trochanters bilateral. Pain with motion of both hips. Pain with palpation over the anterior pelvis on the left. Again pain with palpation of the sacrum. No pain in either knee with palpation. No effusion. No skin changes. No pain at either ankle. Good motion of both ankles with no instability. She is able to dorsiflex and plantar flex both ankles and toes without pain or weakness. She has normal sensation to the foot and toes. Normal sensation in the lower legs and thighs. She has symmetrical pulses. Neurologic: [Grossly intact] Psychiatric: [] Hematologic/lymphatic/immunologic: [] Vital Signs Vital Signs Date Time Temp Pulse Resp B/P (MAP) Pulse Ox O2 Delivery O2 Flow Rate FiO2 10/13/18 09:00 96 Nasal Cannula 3.00 10/13/18 08:20 95 Nasal Cannula 3.00 10/13/18 08:00 81 9 106/78 (87) 90 Nasal Cannula 3.00 10/13/18 07:00 81 10/13/18 04:00 95 Nasal Cannula 2.50 10/13/18 04:00 85 12 123/64 (83) 99 Nasal Cannula 2.50 10/13/18 03:18 96.7 10/13/18 01:00 83 10/13/18 00:00 85 12 105/63 (77) 100 Nasal Cannula 2.50 10/13/18 00:00 98 Nasal Cannula 2.50 10/12/18 21:00 96 Nasal Cannula 2.50 10/12/18 20:00 96.7 84 13 114/67 (83) 96 Nasal Cannula 2.50 10/12/18 20:00 96 Nasal Cannula 2.50 10/12/18 19:00 87 10/12/18 18:59 92 Nasal Cannula 2.50 10/12/18 18:30 94 10 120/68 (85) 90 Nasal Cannula 2.50 10/12/18 18:20 78 17 122/71 (88) 97 Nasal Cannula 2.00 10/12/18 14:50 98.9 88 16 123/71 (88) 95 Nasal Cannula 2.00 I & O 10/13/18 07:00 Intake Total 3040 ml Output Total 1300 ml Balance 1740 ml Lab Results Laboratory Tests 10/12/18 14:44: White Blood Count 16.8H, Red Blood Count 3.16L, Hemoglobin 10.4L, Hematocrit 30L , Mean Corpuscular Volume 96, Mean Corpuscular Hemoglobin 33, Mean Corpuscular Hemoglobin Concent 34, Red Cell Distribution Width 12.3, Platelet Count 267, Mean Platelet Volume 8.8, Neutrophils (%) (Auto) 88H, Lymphocytes (%) (Auto) 8L, Monocytes (%) (Auto) 4, Eosinophils (%) (Auto) 0, Basophils (%) (Auto) 0, Neutrophils # (Auto) 14.7H, Lymphocytes # (Auto) 1.4, Monocytes # (Auto) 0.7, Eosinophils # (Auto) 0.0, Basophils # (Auto) 0.0, Neutrophils % (Manual) 82, Lymphocytes % (Manual) 6, Monocytes % (Manual) 3, Eosinophils % (Manual) 1, Basophils % (Manual) 0, Band Neutrophils 8, Blood Morphology Comment NORMAL, Sodium Level 129L, Potassium Level 3.7, Chloride Level 91L, Carbon Dioxide Level 26, Anion Gap 12, Blood Urea Nitrogen 29H, Creatinine 0.91, Estimat Glomerular Filtration Rate > 60, BUN/Creatinine Ratio 32, Glucose Level 97, Calcium Level 10.3H, Corrected Calcium 10.9H, Total Bilirubin 0.9, Aspartate Amino Transf (AST/SGOT) 77H, Alanine Aminotransferase (ALT/SGPT) 47, Alkaline Phosphatase 194H, Total Creatine Kinase 1014H, B-Type Natriuretic Peptide 514.6H, Total Protein 8.7H, Albumin 3.2 10/12/18 16:35: Urine Color YELLOW, Urine Clarity CLEAR, Urine pH 6.5, Urine Specific [place] 1.010L, Urine Protein 1+H, Urine Glucose (UA) NEGATIVE, Urine Ketones 1+H, Urine Nitrite NEGATIVE, Urine Bilirubin 2+H, Urine Urobilinogen NORMAL, Urine Leukocyte Esterase NEGATIVE, Urine RBC (Auto) 1+H, Urine RBC RARE, Urine WBC NONE, Urine Squamous Epithelial Cells 2-5, Urine Crystals NONE, Urine Bacteria NEGATIVE, Urine Casts NONE, Urine Mucus NEGATIVE, Urine Culture Indicated NO 10/13/18 05:35: White Blood Count 13.2H, Red Blood Count 2.81L, Hemoglobin 9.2L, Hematocrit 28L, Mean Corpuscular Volume 98, Mean Corpuscular Hemoglobin 33, Mean Corpuscular Hemoglobin Concent 33, Red Cell Distribution Width 12.3, Platelet Count 236, Mean Platelet Volume 9.0, Neutrophils (%) (Auto) 76H, Lymphocytes (%) (Auto) 19, Monocytes (%) (Auto) 5, Eosinophils (%) (Auto) 0, Basophils (%) (Auto) 0, Neutrophils # (Auto) 10.0H, Lymphocytes # (Auto) 2.5, Monocytes # (Auto) 0.7, Eosinophils # (Auto) 0.0, Basophils # (Auto) 0.0, Sodium Level 134L, Potassium Level 3.4L, Chloride Level 100, Carbon Dioxide Level 24, Anion Gap 10, Blood Urea Nitrogen 20H, Creatinine 0.68, Estimat Glomerular Filtration Rate > 60, BUN/Creatinine Ratio 29, Glucose Level 77, Calcium Level 9.4, Corrected Calcium 10.5H, Total Bilirubin 0.4, Aspartate Amino Transf (AST/SGOT) 44H, Alanine Aminotransferase (ALT/SGPT) 33, Alkaline Phosphatase 119, Total Creatine Kinase 530H, Total Protein 6.9, Albumin 2.6L 10/13/18 06:29: Lactic Acid Level 0.81 Imaging X-ray of the left hip was reviewed which shows in the inferior and superior pubic rami fracture on the left. No hip fracture is noted. CT of the pelvis was reviewed which shows a fracture of the sacrum which is an H type orientation with displacement through the transverse portion. No evidence of hip fracture. The left superior and inferior pubic rami fractures are noted as well. Assessment and Plan Assessment Fracture of the sacrum and left superior and inferior pubic rami Problem List Reviewed and no additions or changes other than the sacral fracture and fractures of the left superior and inferior pubic rami Plan Planthe above was discussed with the patient and her daughter. I'm concerned about the sacral fracture which does show some displacement. I'm concerned about stability. I explained to them that I do not treat pelvic fractures surgically and would recommend a trauma surgeon to evaluate the patient and her sacral fracture to determine if she in fact needs surgery. This may be one that needs surgery for stability or it may be one that just needs to be treated nonoperatively with bed rest and then gradually increasing activities as tolerated. The patient and her daughter understand the above and will proceed as recommended. Final Diagonsis Displaced sacral fracture and minimally displaced fracture of the left superior and inferior pubic rami Level of the visit: Level 3 FABRICIO FERREIRA MD Oct 13, 2018 09:45
[2018-10-13] MEDS: HYDROcodone/APAP 10 MG/325 MG (LORTAB) TAB PO PRN ×2 (09:54→14:07)
--- NOTE | 2018-10-13 10:44 | Progress Note ---
Subjective Date Seen by a Provider: Oct 13, 2018 Time Seen by a Provider: 09:40 Subjective/Events-last exam Patient seen with Dr. Lowery. Daughter at bedside. Patient reports doing well except for right hip pain. No N/V. No fever/chills. RN reports ortho surgeon seen patient and recommended being transferred to tertiary center for further evaluation and management of pelvic fracture. Focused Exam Lactate Level 10/13/18 06:29: Lactic Acid Level 0.81 Objective Exam Vital Signs Date Time Temp Pulse Resp B/P (MAP) Pulse Ox O2 Delivery O2 Flow Rate FiO2 10/13/18 09:00 96 Nasal Cannula 3.00 10/13/18 08:20 95 Nasal Cannula 3.00 10/13/18 08:00 81 9 106/78 (87) 90 Nasal Cannula 3.00 10/13/18 07:00 81 10/13/18 04:00 95 Nasal Cannula 2.50 10/13/18 04:00 85 12 123/64 (83) 99 Nasal Cannula 2.50 10/13/18 03:18 96.7 10/13/18 01:00 83 10/13/18 00:00 85 12 105/63 (77) 100 Nasal Cannula 2.50 10/13/18 00:00 98 Nasal Cannula 2.50 10/12/18 21:00 96 Nasal Cannula 2.50 10/12/18 20:00 96.7 84 13 114/67 (83) 96 Nasal Cannula 2.50 10/12/18 20:00 96 Nasal Cannula 2.50 10/12/18 19:00 87 10/12/18 18:59 92 Nasal Cannula 2.50 10/12/18 18:30 94 10 120/68 (85) 90 Nasal Cannula 2.50 10/12/18 18:20 78 17 122/71 (88) 97 Nasal Cannula 2.00 10/12/18 14:50 98.9 88 16 123/71 (88) 95 Nasal Cannula 2.00 I & O 10/13/18 07:00 Intake Total 3040 ml Output Total 1300 ml Balance 1740 ml Capillary Refill : Less Than 3 SecondsLess Than 3 Seconds General Appearance: No Apparent Distress, WD/WN Neck: Full Range of Motion, Non Tender, Supple Respiratory: Normal Breath Sounds, No Accessory Muscle Use, No Respiratory Distress Cardiovascular: Regular Rate, Rhythm, No Edema Gastrointestinal: normal bowel sounds, non tender, soft Extremity: Normal Capillary Refill, No Calf Tenderness, No Pedal Edema, Other (Does report pain bilateral hips and pelvis with movement.) Neurologic/Psychiatric: Alert, Oriented x3 Skin: Normal Color, Warm/Dry Results Lab Laboratory Tests 10/12/18 14:44: White Blood Count 16.8H, Red Blood Count 3.16L, Hemoglobin 10.4L, Hematocrit 30L , Mean Corpuscular Volume 96, Mean Corpuscular Hemoglobin 33, Mean Corpuscular Hemoglobin Concent 34, Red Cell Distribution Width 12.3, Platelet Count 267, Mean Platelet Volume 8.8, Neutrophils (%) (Auto) 88H, Lymphocytes (%) (Auto) 8L, Monocytes (%) (Auto) 4, Eosinophils (%) (Auto) 0, Basophils (%) (Auto) 0, Neutrophils # (Auto) 14.7H, Lymphocytes # (Auto) 1.4, Monocytes # (Auto) 0.7, Eo sinophils # (Auto) 0.0, Basophils # (Auto) 0.0, Neutrophils % (Manual) 82, Lymphocytes % (Manual) 6, Monocytes % (Manual) 3, Eosinophils % (Manual) 1, Basophils % (Manual) 0, Band Neutrophils 8, Blood Morphology Comment NORMAL, Sodium Level 129L, Potassium Level 3.7, Chloride Level 91L, Carbon Dioxide Level 26, Anion Gap 12, Blood Urea Nitrogen 29H, Creatinine 0.91, Estimat Glomerular Filtration Rate > 60, BUN/Creatinine Ratio 32, Glucose Level 97, Calcium Level 10.3H, Corrected Calcium 10.9H, Total Bilirubin 0.9, Aspartate Amino Transf (AST/SGOT) 77H, Alanine Aminotransferase (ALT/SGPT) 47, Alkaline Phosphatase 194H, Total Creatine Kinase 1014H, B-Type Natriuretic Peptide 514.6H, Total Protein 8.7H, Albumin 3.2 10/12/18 16:35: Urine Color YELLOW, Urine Clarity CLEAR, Urine pH 6.5, Urine Specific [place] 1.010L, Urine Protein 1+H, Urine Glucose (UA) NEGATIVE, Urine Ketones 1+H, Urine Nitrite NEGATIVE, Urine Bilirubin 2+H, Urine Urobilinogen NORMAL, Urine Leukocyte Esterase NEGATIVE, Urine RBC (Auto) 1+H, Urine RBC RARE, Urine WBC NONE, Urine Squamous Epithelial Cells 2-5, Urine Crystals NONE, Urine Bacteria NEGATIVE, Urine Casts NONE, Urine Mucus NEGATIVE, Urine Culture Indicated NO 10/13/18 05:35: White Blood Count 13.2H, Red Blood Count 2.81L, Hemoglobin 9.2L, Hematocrit 28L, Mean Corpuscular Volume 98, Mean Corpuscular Hemoglobin 33, Mean Corpuscular Hemoglobin Concent 33, Red Cell Distribution Width 12.3, Platelet Count 236, Mean Platelet Volume 9.0, Neutrophils (%) (Auto) 76H, Lymphocytes (%) (Auto) 19, Monocytes (%) (Auto) 5, Eosinophils (%) (Auto) 0, Basophils (%) (Auto) 0, Neutrophils # (Auto) 10.0H, Lymphocytes # (Auto) 2.5, Monocytes # (Auto) 0.7, Eosinophils # (Auto) 0.0, Basophils # (Auto) 0.0, Sodium Level 134L, Potassium Level 3.4L, Chloride Level 100, Carbon Dioxide Level 24, Anion Gap 10, Blood Urea Nitrogen 20H, Creatinine 0.68, Estimat Glomerular Filtration Rate > 60, BUN/Creatinine Ratio 29, Glucose Level 77, Calcium Level 9.4, Corrected Calcium 10.5H, Total Bilirubin 0.4, Aspartate Amino Transf (AST/SGOT) 44H, Alanine Aminotransferase (ALT/SGPT) 33, Alkaline Phosphatase 119, Total Creatine Kinase 530H, Total Protein 6.9, Albumin 2.6L 10/13/18 06:29: Lactic Acid Level 0.81 Assessment/Plan Assessment/Plan Assess & Plan/Chief Complaint A 67-year-old female with same level fall with a pubic ramus fracture and a right ninth rib fracture as well as a sacral fracture. Patient was evaluated by ortho and due to the extent of the pelvic/sacral fracture, they recommend transfer to a tertiary center for further evaluation and management in which we will facilitate. Continue with medical management for now with DVT prophylaxis, IS, breathing treatments, pain control, abx. Clinical Quality Measures DVT/VTE Risk/Contraindication: Risk Factor Score Per Nursin RFS Level Per Nursing on Admit: 4+=Very High TREVER VILLAGOMEZ WORD PROCESSOR TECHNICIAN Oct 13, 2018 10:44
[2018-10-13 12:00] VITALS: BP 111/64
--- NOTE | 2018-10-13 13:21 | Consultation - Hospitalist ---
HPI History of Present Illness: HPI/Chief Complaint Chief complaint: Fall with sacral fractures and rhabdomyolysis History of present illness: This is a 67-year-old white female who suffered a fall was found down a few hours after she fell and noted to have rib fractures and sacral fractures and was placed in ICU for close monitoring on trauma surgery with orthopedic surgery consultation. Patient is maintained on aggressive IV fluids to treat rhabdomyolysis. Patient is currently stable but orthopedic surgery is concerned regarding the recent x-ray that shows movement of the fractures likely will need repair by trauma service at tertiary higher level of care. Her daughter is at the bedside in agreement with any plan to take care of her mother. Source: patient Exam Limitations: no limitations Date Seen 10/13/18 Attending Physician Digna Lowery [facility] Referring Physician FABRICIO FERREIRA MD Date of Admission Oct 12, 2018 at 17:30 Home Medications & Allergies Home Medications Reviewed patient Home Medication Reconciliation performed by pharmacy medication reconciliations process engineering technician and/or nursing. Patients Allergies have been reviewed. Allergies Allergies Coded Allergies pregabalin (Verified Allergy, Unknown, HIVES, 09/17/14) Past [id number] Hx Past Med/Social Hx: Reviewed Nursing Past Med/Soc Hx, Reviewed and Corrections made Patient Social History Marrital Status: Employed/Student: retired Alcohol Use: Denies Use Recreational Drug Use: No Smoking Status: Never a Smoker 2nd Hand Smoke Exposure: No Recent Foreign Travel: No Contact w/other who traveled: No Recent Hopitalizations: No (pt unable to provide current hx, all hx obtained through old records) Recent Infectious Disease Expo: No Immunizations Up To Date Tetanus Booster (TDap): Less than 5yrs Date of Pneumonia Vaccine: Feb 12, 2011 Seasonal Allergies Seasonal Allergies: Yes Past Medical History Surgeries: Gallbladder, Hysterectomy, Thyroidectomy Cardiac: Hypertension Reproductive: No Gastrointestinal: Gastroesophageal Reflux, Chronic Constipation, Diverticulosis, Gall Bladder Disease Musculoskeletal: Degenerate Disk Disease, Arthritis, Scoliosis Endocrine: Hypothyroidsim HEENT: Cataract Loss of Vision: Denies Hearing Impairment: Denies Psychosocial: Anxiety, Bipolar History of Blood Disorders: No Family History Cardiovascular disease 19 FATHER 19 MOTHER Completed stroke 19 FATHER Diabetes mellitus G8 BROTHER FH: lung cancer 19 FATHER 19 MOTHER Myocardial infarction 19 MOTHER Psychiatric Problems Review of Systems Constitutional: see HPI Musculoskeletal: back pain, joint pain, muscle pain, muscle stiffness, muscle cramps Physical Exam Physical Exam Vital Signs Vital Signs - First Documented 10/12/18 14:50 Temp 98.9 Pulse 88 Resp 16 B/P (MAP) 123/71 (88) Pulse Ox 95 O2 Delivery Nasal Cannula O2 Flow Rate 2.00 Capillary Refill : Less Than 3 SecondsLess Than 3 Seconds Height, Weight, BMI Height: 5'3.00" Weight: 158lbs. 0.5oz. [id number]; 27.1 BMI Method:Stated General Appearance: No Apparent Distress, WD/WN Eyes: Bilateral Eye Normal Inspection, Bilateral Eye PERRL, Bilateral Eye EOMI HEENT: PERRL/EOMI, TMs Normal, Normal ENT Inspection, Pharynx Normal, Moist Mu cous Membranes Neck: Full Range of Motion, Non Tender, Supple Respiratory: Normal Breath Sounds, No Accessory Muscle Use, No Respiratory Distress Cardiovascular: Regular Rate, Rhythm, No Edema Gastrointestinal: Normal Bowel Sounds, No Organomegaly, No Pulsatile Mass, Non Tender, Soft Back: Normal Inspection, Other (Sacral fracture, rib fracture) Extremity: Normal Capillary Refill, No Calf Tenderness, No Pedal Edema, Other (Does report pain bilateral hips and pelvis with movement.) Neurologic/Psychiatric: Alert, Oriented x3 Skin: Normal Color, Warm/Dry Lymphatic: No Adenopathy Results Results/Procedures Labs Laboratory Tests 10/12/18 14:44 10/13/18 05:35 Patient resulted labs reviewed. Assessment/Plan Assessment and Plan Assess & Plan/Chief Complaint Assessment: Fall Sacral fractures Rib fractures Rhabdomyolysis Bipolar Plan: Monitor closely Pain control Transfer to higher level of care? Diagnosis/Problems Diagnosis/Problems (1) Fall Status: Acute Qualifiers: Encounter type: initial encounter Qualified Codes: W19.XXXA - Unspecified fall, initial encounter (2) Fracture of left pelvis Status: Acute Qualifiers: Encounter type: initial encounter Pelvic bone location: pubis Sublocation of pubis: unspecified portion of pubis Fracture type: closed Qualified Codes: S32.502A - Unspecified fracture of left pubis, initial encounter for closed fracture (3) Altered mental status Status: Acute (4) Rhabdomyolysis Status: Acute Qualifiers: Rhabdomyolysis type: traumatic Encounter type: initial encounter Qual ified Codes: T79.6XXA - Traumatic ischemia of muscle, initial encounter (5) Right rib fracture Status: Acute Qualifiers: Encounter type: initial encounter Rib fracture type: single rib Fracture type: closed Qualified Codes: S22.31XA - Fracture of one rib, right side, initial encounter for closed fracture (6) Sacral fracture, closed Status: Acute Qualifiers: Encounter type: initial encounter Zone of sacrum fracture: unspecified portion of sacrum Qualified Codes: S32.10XA - Unspecified fracture of sacrum, initial encounter for closed fracture (7) Traumatic retroperitoneal hematoma Status: Acute Qualifiers: Encounter type: initial encounter Qualified Codes: S36.892A - Contusion of other intra-abdominal organs, initial encounter Clinical Quality Measures DVT/VTE Risk/Contraindication: Risk Factor Score Per Nursin RFS Level Per Nursing on Admit: 4+=Very High ARIELA ESPINOZA DO Oct 13, 2018 13:21
== END 2018-10-13 14:15 | disposition short-term general hospital (02) | DRG 964 ==
LOC: EDUNIT# 14:31 → ER 14:32 → ICU 17:30
PROVIDERS: ADMIT Surgery; ATTEND Surgery
DX: S32.810A Multiple fractures of pelvis with stable disruption of pelvic ring, initial encounter for closed fracture (principal); S32.111A Minimally displaced Zone I fracture of sacrum, initial encounter for closed fracture; S22.080A Wedge compression fracture of T11-T12 vertebra, initial encounter for closed fracture; S22.31XA Fracture of one rib, right side, initial encounter for closed fracture; T79.6XXA Traumatic ischemia of muscle, initial encounter; S36.892A Contusion of other intra-abdominal organs, initial encounter; I10 Essential (primary) hypertension; J45.909 Unspecified asthma, uncomplicated; R47.01 Aphasia; G51.0 Bell's palsy; K21.9 Gastro-esophageal reflux disease without esophagitis; K59.09 Other constipation; K57.90 Diverticulosis of intestine, part unspecified, without perforation or abscess without bleeding; E03.9 Hypothyroidism, unspecified; F41.9 Anxiety disorder, unspecified; F31.9 Bipolar disorder, unspecified; I49.3 Ventricular premature depolarization; R42 Dizziness and giddiness; R29.6 Repeated falls; Z90.710 Acquired absence of both cervix and uterus; E89.0 Postprocedural hypothyroidism; W19.XXXA Unspecified fall, initial encounter; Y92.018 Other place in single-family (private) house as the place of occurrence of the external cause
CPT/HCPCS: 36415; 70450; 71045; 72125; 73502; 74177; 80053; 81000; 82550; 83605; 83880; 85007; 85025; 85027; 87040; 93005; 93306; 94664; 96361; 96374

== ENCOUNTER 2018-10-24 12:48 | Inpatient (IN) | payer MEDICAID ==
[~2018-10-24] VITALS: Ht 160 cm; Wt 69.8 kg
--- NOTE | 2018-10-24 10:59 | History & Physical ---
[facility] 10/24/18 1059: History of Present Illness History of Present Illness Reason for visit/HPI Pt is a 67 y/o WF w/ hx of Bipolar d/o, expressive aphasia, HTN, and asthma, who is here from [facility] in [place], [place] after recent fall 2/2 vertigo and unsteady gait at her home which resulted in nondisplaced fracture of the left inferior and superior pubic ramus, a sacral fracture with mild displacement of 1 cm, a mild T12 compression fracture, and posterior fracture of right 9th rib. Pt was admitted to ICU at the time and ortho surg was consulted. Pt was stabilized and sent to [facility] at a tertiary higher level care [facility]. Sacroiliac joints were bridged w/ 2 surgical screws. Rates LLE pain 10/10 at this time. Also c/o muscle spasms in RLE. says Flexeril is not helping. Pt currently has a fisher in place, recent CT showed distended bladder, no hematuria. currently No focal deficits. Pt has chronic constipation and is intermittently incontinent of bowels. Had regular bladder function prior to fall. Reports hx of recent falls as well. Prior to this encounter, pt lived alone at home and ambulated using a walker. Pt has a daughter who lives 23 miles away from her and is able to visit her MWF. 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 Pt was discharged from [facility] with the following meds: PERCOCET 5-325MG 1 TAB Q6H PRN CALCIUM +D 500-200 BID DOCUSATE-SENNA 50-8.6MG 2 TABS HS LOVENOX 30MG SUBQ Q12 HOURS X 14 DAYS Pt has seen: PCP Dr. Kaitlynn Martinez Urologist Dr. Harrell (has f/u on 10/29/18) Ortho Dr. Mccullough (has f/u on 10/29/18) Date of Admission 10/24/2018 Time Seen by a Provider: 12:30 I consulted on this patient on 10/24/18 10:53 Attending Physician Brianna Espinoza DO Admitting Physician Joseluis Lees - [facility] Allergies and Home Medications Allergies Coded Allergies: pregabalin (Verified Allergy, Unknown, HIVES, 10/24/18) Home Medications Budesonide/Formoterol Fumarate 10.2 Gm Hfa.aer.ad, 2 PUFF INH BID, (Reported) Buspirone HCl 10 Mg Tablet, 10 MG PO TID, (Reported) Calcium Carbonate/Vitamin D3 1 Each Tablet, 1 TAB PO BID, (Reported) Cetirizine HCl 10 Mg Tablet, 10 MG PO DAILY, (Reported) Cyclobenzaprine HCl 5 Mg Tablet, 5 MG PO TID PRN for MUSCLE SPASMS, (Reported) Dexlansoprazole 60 Mg Cap.drMaxibp, 60 MG PO DAILY, (Reported) Diclofenac Sodium 100 Gm Gel..gram., 2 GM TOP QID PRN for JOINT PAIN, (Reported) Enoxaparin Sodium 30 Mg/0.3 Ml Syringe, 30 MG SQ Q12H, (Reported) Estrogens, Conjugated 0.9 Mg Tablet, 0.9 MG PO DAILY, (Reported) Etodolac 200 Mg Capsule, 200 MG PO Q8H PRN for PAIN-MILD, (Reported) Fluticasone Propionate 16 Gm [place].susp, 2 SPRAYS NS BID, (Reported) Gabapentin 800 Mg Tablet, 800 MG PO HS, (Reported) Hydrochlorothiazide 25 Mg Tablet, 25 MG PO DAILY, (Reported) Ibuprofen 800 Mg Tablet, 800 MG PO TID PRN for PAIN-MILD, (Reported) Ipratropium [place] 30 Ml [place], 2 SPRAYS NS TID, (Reported) Isosorbide Mononitrate 60 Mg Tab, 60 MG PO HS, (Reported) Lamotrigine 100 Mg Tablet, 100 MG PO DAILY, (Reported) Levothyroxine Sodium 50 Mcg Tablet, 50 MCG PO DAILY, (Reported) Linaclotide 290 Mcg Capsule, 290 MCG PO DAILY, (Reported) Montelukast Sodium 10 Mg Tablet, 10 MG PO HS, (Reported) Olanzapine 20 Mg Tablet, 20 MG PO DAILY, (Reported) Oxycodone HCl/Acetaminophen 1 Each Tablet, 1 TAB PO Q6H PRN for PAIN-MODERATE, (Reported) Pantoprazole Sodium 40 Mg Tablet.dr, 40 MG PO DAILY, (Reported) Piroxicam 20 Mg Capsule, 20 MG PO DAILY, (Reported) Sennosides/Docusate Sodium 1 Each Tablet, 2 TAB PO HS, (Reported) Tramadol HCl 50 Mg Tablet, 100 MG PO HS PRN for PAIN-MODERATE, (Reported) TAKES 2 (50MG) TABLETS Venlafaxine HCl 25 Mg Tablet, 25 MG PO BID, (Reported) Zolpidem Tartrate 10 Mg Tablet, 10 MG PO HS PRN for SLEEP, (Reported) Patient Home Medication List Home Medication List Reviewed: Yes Past Bqzpgpq-Xdwoxz-Diruhh Hx Patient Social History Marrital Status: Employed/Student: retired Alcohol Use: Denies Use Recreational Drug Use: No Smoking Status: Never a Smoker 2nd Hand Smoke Exposure: No Immunizations Up To Date Tetanus Booster (TDap): Less than 5yrs Date of Pneumonia Vaccine: Feb 12, 2011 Seasonal Allergies Seasonal Allergies: Yes Surgeries Yes (I&D OF SPIDER BITES, thyroid nodules, l shoulder) Gallbladder, Hysterectomy, Oophorectomy, Thyroidectomy Respiratory Yes Cardiovascular Yes Hypertension Neurological Yes (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, current expressive aphasia) Reproductive System 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 Genitourinary No Gastrointestinal Yes (esophageal dilitation every 6 months) Gastroesophageal Reflux, Chronic Constipation, Diverticulosis, Gall Bladder Disease Musculoskeletal Yes Degenerate Disk Disease, Arthritis, Scoliosis Endocrine History of Endocrine Disorders: Yes Endocrine Disorders: Hypothyroidsim HEENT History of HEENT Disorders: Yes HEENT Disorders: Cataract Loss of Vision: Denies Hearing Impairment: Denies Cancer No Psychosocial History of Psychiatric Problem: Yes Behavioral Health Disorders: Anxiety, Bipolar Integumentary History of Skin or Integumenta: No Blood Transfusions History of Blood Disorders: No Family Medical History Significant Family History: Psychiatric Problems Family Hx: Cardiovascular disease 19 FATHER 19 MOTHER Completed stroke 19 FATHER Diabetes mellitus G8 BROTHER FH: lung cancer 19 FATHER 19 MOTHER Myocardial infarction 19 MOTHER Review of Systems Gastrointestinal: constipation (bowel incontinence) Genitourinary: No dysuria, No hematuria; incontinence Musculoskeletal: see HPI Physical Exam Vital Signs Capillary Refill : Height, Weight, BMI Height: 5'3.00" Weight: 158lbs. 0.5oz. [id number]; 27.1 BMI Method:Stated General Appearance: WD/WN, Mild Distress (tearful and anxious, but cooperative ), Thin Eyes: Bilateral Eye Normal Inspection, Bilateral Eye PERRL, Bilateral Eye EOMI HEENT: PERRL/EOMI Neck: Normal Inspection Respiratory: Chest Non Tender, Lungs Clear, Normal Breath Sounds, No Accessory Muscle Use, No Respiratory Distress Cardiovascular: Regular Rate, Rhythm, No Edema, No Gallop, No Murmur, Normal Peripheral Pulses Extremity: Normal Capillary Refill, Normal Inspection; No Normal Range of Motion (s/p fx); No Calf Tenderness, No Pedal Edema Neurologic/Psychiatric: Alert, Oriented x3, Motor Weakness Skin: Normal Color, Warm/Dry Lymphatic: No Adenopathy Assessment/Plan Assessment and Plan Assessment: 1. Nondisplaced fracture of the left inferior and superior pubic ramus, 2. S/P repair of Sacral fracture with mild displacement of 1 cm, 3. Mild T12 compression fracture, 4. Posterior fracture of right 9th rib. 5. Bipolar d/o, 6. HTN 7. Chronic Asthma 8. Chronic Constipation 9. Fisher in place 10. Intermittent bowel incontinence 11. Bladder incontinence, neurogenic 11. Bilat [id number] Plan: 1. Inpaitent rehab 2. PT 3. OT 4. Speech therapy 5. Monitor cognition 6. Maintain bowel regimen 7. DVT prophylaxis SCD 8. Lovenox 9. Pain management PRN 10. Baclofen for RLE muscle spasms 11. Consult urology regarding bladder incontinence and Fisher BRIANNA ESPINOZA DO 10/25/18 0630: History of Present Illness History of Present Illness Reason for visit/HPI Verification and Attestation of Medical Student E/M Service A medical student performed and documented this service in my presence. I reviewed and verified all information documented by the medical student and made modifications to such information, when appropriate. I personally performed the physical exam and medical decision making. Brianna Espinoza, Oct 25, 2018,06:29 Date of Admission 10/24/18 Allergies and Home Medications Allergies Coded Allergies: pregabalin (Verified Allergy, Unknown, HIVES, 10/24/18) Home Medications Budesonide/Formoterol Fumarate 10.2 Gm Hfa.aer.ad, 2 PUFF INH BID, (Reported) Buspirone HCl 10 Mg Tablet, 10 MG PO TID, (Reported) Calcium Carbonate/Vitamin D3 1 Each Tablet, 1 TAB PO BID, (Reported) Cetirizine HCl 10 Mg Tablet, 10 MG PO DAILY, (Reported) Cyclobenzaprine HCl 5 Mg Tablet, 5 MG PO TID PRN for MUSCLE SPASMS, (Reported) Dexlansoprazole 60 Mg bp, 60 MG PO DAILY, (Reported) Diclofenac Sodium 100 Gm Gel..gram., 2 GM TOP QID PRN for JOINT PAIN, (Reported) Enoxaparin Sodium 30 Mg/0.3 Ml Syringe, 30 MG SQ Q12H, (Reported) Estrogens, Conjugated 0.9 Mg Tablet, 0.9 MG PO DAILY, (Reported) Etodolac 200 Mg Capsule, 200 MG PO Q8H PRN for PAIN-MILD, (Reported) Fluticasone Propionate 16 Gm [place].susp, 2 SPRAYS NS BID, (Reported) Gabapentin 800 Mg Tablet, 800 MG PO HS, (Reported) Hydrochlorothiazide 25 Mg Tablet, 25 MG PO DAILY, (Reported) Ibuprofen 800 Mg Tablet, 800 MG PO TID PRN for PAIN-MILD, (Reported) Ipratropium [place] 30 Ml [place], 2 SPRAYS NS TID, (Reported) Isosorbide Mononitrate 60 Mg Tab, 60 MG PO HS, (Reported) Lamotrigine 100 Mg Tablet, 100 MG PO DAILY, (Reported) Levothyroxine Sodium 50 Mcg Tablet, 50 MCG PO DAILY, (Reported) Linaclotide 290 Mcg Capsule, 290 MCG PO DAILY, (Reported) Montelukast Sodium 10 Mg Tablet, 10 MG PO HS, (Reported) Olanzapine 20 Mg Tablet, 20 MG PO DAILY, (Reported) Oxycodone HCl/Acetaminophen 1 Each Tablet, 1 TAB PO Q6H PRN for PAIN-MODERATE, (Reported) Pantoprazole Sodium 40 Mg Tablet.dr, 40 MG PO DAILY, (Reported) Piroxicam 20 Mg Capsule, 20 MG PO DAILY, (Reported) Sennosides/Docusate Sodium 1 Each Tablet, 2 TAB PO HS, (Reported) Tramadol HCl 50 Mg Tablet, 100 MG PO HS PRN for PAIN-MODERATE, (Reported) TAKES 2 (50MG) TABLETS Venlafaxine HCl 25 Mg Tablet, 25 MG PO BID, (Reported) Zolpidem Tartrate 10 Mg Tablet, 10 MG PO HS PRN for SLEEP, (Reported) Patient Home Medication List Home Medication List Reviewed: Yes Past Ejjtisp-Svwcdb-Aoqeao Hx Family Medical History Family Hx: Cardiovascular disease 19 FATHER 19 MOTHER Completed stroke 19 FATHER Diabetes mellitus G8 BROTHER FH: lung cancer 19 FATHER 19 MOTHER Myocardial infarction 19 MOTHER Review of Systems Constitutional: see HPI Physical Exam General Appearance: Anxious Assessment/Plan Assessment and Plan Problems: (1) Closed fracture of sacrum Status: Acute Qualifiers: Qualified Codes: S32.10XK - Unspecified fracture of sacrum, subsequent encounter for fracture with nonunion Admission Diagnosis Admission Status: Inpatient Order (span 2 [facility]) Reason for Inpatient Admission: irf Supervisory-Addendum Brief Verification & Attestation Participated in pt care: history, MDM, physical Personally performed: exam, history, MDM, supervision of care Care discussed with: Medical Student Procedures: n/a Results interpretation: Verified all documentation Verification and Attestation of Medical Student E/M Service A medical student performed and documented this service in my presence. I reviewed and verified all information documented by the medical student and made modifications to such information, when appropriate. I personally performed the physical exam and medical decision making. Brianna Espinoza, Oct 25, 2018,06:30 [facility] Oct 24, 2018 10:59 BRIANNA ESPINOZA DO Oct 25, 2018 06:30
--- NOTE | 2018-10-24 11:01 | NUR ---
UPDATED MED REC TO THE LIST OF MEDICATIONS ORDERED AT DISCHARGE FROM [facility]. NOTE THE FOLLOWING CHANGES WERE MADE AT THAT DISCHARGE: NEW PRESCRIPTIONS ORDERED THIS VISIT: PERCOCET 5-325MG 1 TAB Q6H PRN CALCIUM +D 500-200 BID DOCUSATE-SENNA 50-8.6MG 2 TABS HS LOVENOX 30MG SUBQ Q12 HOURS X 14 DAYS I WILL UPDATE THE MED REC TO THE LIST OF MEDICATIONS THE PATIENT WAS TAKING PRIOR TO DISCHARGE FROM [facility] AT A LATER DATE FOR PROPER DISCHARGE TO HOME ORDERS. Addendum: 10/25/18 at 1306 by CHARISSE NOLAN [facility] REMOVED THE 4 NEW MEDICATIONS ORDERED AT DISCHARGE FROM [facility]. I VERIFIED THE OTHER MEDICATIONS WITH THE EXT MED HX. ADDITIONALLY THERE WAS A SCRIPT FOR METHOCARBAMOL 500MG #90 FOR A 30 DAY SUPPLY FILLED 09-23-18 - I DID NOT ADD THIS TO THE MED REC AT THIS TIME SINCE IT WAS NOT REPORTED AT [facility].
--- NOTE | 2018-10-24 11:58 | NUR ---
JUDAH HO admitted to room 418-1, with an admitting diagnosis of MULTIPLE FRACTURES, on 10/24/18 [facility] via AMBULANCE, accompanied by AMBULANCE VANESSA.JUDAH HO introduced to surroundings, call light, bed controls, phone, TV, temperature control, lights, meal times, smoking policy, visitor policy, side rail policy, bathrooms and showers. JUDAH HO verbalizes understanding that [facility] is not responsible for the loss or damage to any personal effects or valuables that are kept in the patients posession during their hospitalization. The following Patient Care Plans were discussed with the PATIENT: Discharge Planning, IMPAIRED MOBILITY, and PAIN. JUDAH HO verbalizes understanding of Interdisciplinary Patient Education. Patient and/or family were informed about the Rapid Response Team and its purpose.
[2018-10-24 12:08] VITALS: BP 128/78
[~2018-10-24 12:48] MED LIST changes: +ALPRAZolam 0.25 MG (XANAX) TAB PO PRN; +BUSP10TA95 PO; +CALC-676 PO; +CALCIUM CARBONATE 500 MG (TUMS) TAB.CHEW PO PRN; +CYCL5TAB PO; +DEXL60CA PO; +DICL100G31 TOP; +ENOX30DI9 SQ; +ETD200C PO; +IBUP-850 PO; +IPRA30SP NS; +LINA290C PO; +LOPERAMIDE 2 MG (IMODIUM) TABLET PO PRN; +MELATONIN 3 MG TABLET PO PRN; +ONDANSETRON 4 MG (ZOFRAN) ORAL DISSOLVE TAB PO PRN; +OXYC1TAB87 PO; +PIRO20CA2 PO; +SENN-145 PO; +SENNA W/DOCUSATE (SENOKOT S) TABLET PO SCH; +VENL25TA2 PO; +diphenhydrAMINE 25 MG TAB (BENADRYL) PO PRN
--- NOTE | 2018-10-24 12:57 | PM&R H&P / Post Admit Assess ---
History of Present Illness HPI/Chief Complaint CC: Debility following sacral fracture and subsequent partial paraplegia Pt is a 67 y/o WF w/ hx of Bipolar d/o, expressive aphasia, HTN, and asthma, who is here from [facility] in [place], [place] after recent fall 2/2 vertigo and unsteady gait at her home which resulted in nondisplaced fracture of the left inferior and superior pubic ramus, a sacral fracture with mild displacement of 1 cm, a mild T12 compression fracture, and posterior fracture of right 9th rib. Pt was admitted to ICU at the time and ortho surg was consulted. Pt was stabilized and sent to [facility] at a tertiary higher level care [facility]. Sacroiliac joints were bridged w/ 2 surgical screws. Rates LLE pain 10/10 at this time. Also c/o muscle spasms in RLE. says Flexeril is not helping. Pt currently has a fisher in place, recent CT showed distended bladder, no hematuria. currently No focal deficits. Pt has chronic constipation and is intermittently incontinent of bowels. Had regular bladder function prior to fa ll. Reports hx of recent falls as well. Prior to this encounter, pt lived alone at home and ambulated using a walker. Pt has a daughter who lives 23 miles away from her and is able to visit her MWF. 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 Pt was discharged from [facility] with the following meds: PERCOCET 5-325MG 1 TAB Q6H PRN CALCIUM +D 500-200 BID DOCUSATE-SENNA 50-8.6MG 2 TABS HS LOVENOX 30MG SUBQ Q12 HOURS X 14 DAYS Pt has seen: PCP Dr. Kaitlynn Martinez Urologist Dr. Harrell (has f/u on 10/29/18) Ortho Dr. Mccullough (has f/u on 10/29/18) Per Brandie Moreno [facility] Chief complaint: Debility following sacral fracture. HPI: This is a 67yoWF clinic Pt of [facility] that I briefly saw two weeks ago when she was admitted over the weekend after suffering a fall and sustaining a sacral fracture. It became unstable so orthopedic surgery recommended transfer to higher level of care to [facility] and I supported that move. She did undergo surgery to repair that by trauma surgery orthopedics and a screw was placed for stability. She is still having significant neurological deficit since that was completed, remains incontinent of stool and neurogenic bladder retention requiring fisher catheter administration. We will work on transfers to a wheelchair. We encourage her to be up in a chair. Next week appointment scheduled with urology and trauma surgery and it will be assessed at that point regarding additional recommendations. Percocet is barely used now, will rely mostly on Tylenol and did not receive any transfusion, Hgb of 8.7 and is not on any antibiotics. Prior level of functioning was independent without the use of assistive devices so will work towards wheelchair mobility since likely the neurological deficit could be permanent. Source: patient, RN/MD, old records Exam Limitations: no limitations Date Seen 10/24/18 Time Seen by a Provider: 12:55 Attending Physician Brianna Espinoza DO [facility] Referring Physician Date of Admission Oct 24, 2018 at 12:48 Home Medications & Allergies Home Medications Reviewed patient Home Medication Reconciliation performed by pharmacy medication reconciliations ophthalmic medical technician and/or nursing. Patients Allergies have been reviewed. Allergies Allergies Coded Allergies pregabalin (Verified Allergy, Unknown, HIVES, 10/24/18) Past Vgezkbj-Wpgoms-Uhecda Hx Past Med/Social Hx: Reviewed Nursing Past Med/Soc Hx, Reviewed and Corrections made Patient Social History Marrital Status: Employed/Student: retired Alcohol Use: Denies Use Recreational Drug Use: No Smoking Status: Never a Smoker 2nd Hand Smoke Exposure: No Immunizations Up To Date Tetanus Booster (TDap): Less than 5yrs Date of Pneumonia Vaccine: Feb 12, 2011 Seasonal Allergies Seasonal Allergies: Yes Past Medical History Surgeries: Gallbladder, Hysterectomy, Oophorectomy, Orthopedic (09/30 sacral fracture pinning), Thyroidectomy Cardiac: Hypertension Reproductive: No Hysterectomy Gastrointestinal: Gastroesophageal Reflux, Chronic Constipation, Diverticulosis, Gall Bladder Disease Musculoskeletal: Degenerate Disk Disease, Arthritis, Scoliosis Endocrine: Hypothyroidsim HEENT: Cataract Loss of Vision: Denies Hearing Impairment: Denies Psychosocial: Anxiety, Bipolar History of Blood Disorders: No Family History Cardiovascular disease 19 FATHER 19 MOTHER Completed stroke 19 FATHER Diabetes mellitus G8 BROTHER FH: lung cancer 19 FATHER 19 MOTHER Myocardial infarction 19 MOTHER Psychiatric Problems Review of Systems Constitutional: see HPI, weakness EENTM: no symptoms reported Respiratory: no symptoms reported Cardiovascular: no symptoms reported Gastrointestinal: other (fecal incontinence) Genitourinary: other (retention requiring fisher cath) Musculoskeletal: back pain, joint pain, muscle pain, muscle stiffness, muscle cramps Skin: no symptoms reported Psychiatric/Neurological: Anxiety All Other Systems Reviewed Negative Unless Noted: Yes Physical Exam Exam Vital Signs Vital Signs Date Time Temp Pulse Resp B/P (MAP) Pulse Ox O2 Delivery O2 Flow Rate FiO2 10/25/18 06:10 36.0 80 18 119/69 95 Room Air Capillary Refill : General Appearance: No Apparent Distress, WD/WN, Anxious, Chronically ill, Thin HEENT: PERRL/EOMI, Normal ENT Inspection, Pharynx Normal Neck: Normal Inspection, Non Tender, Supple Respiratory: Chest Non Tender, Lungs Clear, Normal Breath Sounds, No Accessory Muscle Use, No Respiratory Distress Cardiovascular: Regular Rate, Rhythm, No Edema, No Gallop, No JVD, No Murmur, Normal Peripheral Pulses Gastrointestinal: Normal Bowel Sounds, No Organomegaly, No Pulsatile Mass, Soft Extremity: Normal Capillary Refill, Normal Inspection, Non Tender, No Calf Tenderness, No Pedal Edema, Other (strength right lower leg 1/5, left 1/5) Neurologic/Psychiatric: Alert, Oriented x3, Normal Mood/Affect, joist setter II-XII Norm as Tested, Motor Weakness (lower leg parpalegia) Skin: Normal Color, Warm/Dry Lymphatic: No Adenopathy Results Results/Procedures Labs Laboratory Tests 10/25/18 05:45 Patient resulted labs reviewed. Assessment/Plan Assessment and Plan Assess & Plan/Chief Complaint Assessment: Debility following sacral fracture Bipolar Anxiety Urinary retention Fisher cath Fecal incontinence Anemia Chest pain chronic Muscle spasms Plan: Monitor pain Monitor bowel and bladder Baclofen for muscle spasms IRF protocol (1) Closed fracture of sacrum Status: Acute Qualifiers: Encounter type: subsequent encounter Zone of sacrum fracture: unspecified portion of sacrum Fracture healing: with nonunion Qualified Codes: S32.10XK - Unspecified fracture of sacrum, subsequent encounter for fracture with nonunion (2) Chest pain Status: Chronic Qualifiers: Chest pain type: unspecified Qualified Codes: R07.9 - Chest pain, unspecified (3) Neurogenic bladder Status: Acute (4) Fisher catheter in place Status: Acute (5) Fecal incontinence Status: Acute Qualifiers: Fecal incontinence type: unspecified Qualified Codes: R15.9 - Full incontinence of feces (6) Anemia Status: Chronic Qualifiers: Anemia type: unspecified type Qualified Codes: D64.9 - Anemia, unspecified (7) Bipolar 1 disorder Status: Chronic (8) COPD (chronic obstructive pulmonary disease) Status: Chronic (9) MGUS (monoclonal gammopathy of unknown significance) Status: Chronic (10) HTN (hypertension) Status: Chronic Qualifiers: Hypertension type: essential hypertension Qualified Codes: I10 - Essential (primary) hypertension (11) Hypothyroidism Status: Chronic Qualifiers: Hypothyroidism type: acquired Qualified Codes: E03.9 - Hypothyroidism, unspecified (12) Fall Status: Acute Qualifiers: Encounter type: subsequent encounter Qualified Codes: W19.XXXD - Unspecified fall, subsequent encounter (13) Rhabdomyolysis Status: Resolved Resolution Date/Time: 10/25/18 @ 06:25 (14) Right rib fracture Status: Acute Qualifiers: Encounter type: subsequent encounter Rib fracture type: multiple ribs Fracture type: closed Fracture healing: with routine healing Qualified Codes: S22.41XD - Multiple fractures of ribs, right side, subsequent encounter for fracture with routine healing (15) Traumatic retroperitoneal hematoma Status: Acute Qualifiers: Encounter type: subsequent encounter Qualified Codes: S36.892D - Contusion of other intra-abdominal organs, subsequent encounter Post Admission Physician Asses Date seen by provider: Oct 25, 2018 Time seen by provider: 12:55 Admisison Dx: (1) Closed fracture of sacrum Status: Acute The preadmission screen agrees with the post admission assessment that the patient is a good candidate for inpatient rehabilitation. The patient will have a comprehensive program of inpatient rehabilitation with a goal of maximizing level of functional independence prior to discharge home with family. The patient will have PT/OT ninety minutes per day, each discipline, five days a week for gait, strengthening, conditioning, balance, ADLs, any patient/family/caregiver training as necessary. Speech therapy to do cognitive assessment and treat as indicated. Rehabilitation nursing to assist with bowel, bladder, skin, wound care, medication administration, pain management. Home Care Companion to assist with discharge planning, community reentry. SCD's for DVT prophylaxis. She appears to be well motivated to participate in three hours of therapy a day. She should be able to tolerate three hours of therapy a day from a medical standpoint. She should benefit from the three hours of therapy a day. She has a reasonable discharge plan, reasonable discharge rehabilitation goals and a supportive family. She has various comorbidities that need to be closely monitored with medications and treatments adjusted on a daily basis as needed. These include: see list Barriers to discharge for this patient who had been independent prior to this are for her to be modified independent to supervision for ADLs and mobility skills prior to discharge home with family, so as to lessen the burden of the ca regivers. Risks for this patient include: 1. Fall 2. Fracture 3. DVT 4. Pulmonary embolism 5. Wound infection 6. Skin breakdown 7. Contractures 8. Poorly controlled pain 9. Urinary retention 10. UTI 11. Respiratory infection 12. Aspiration Estimated Length of Stay: 14 days Prognosis: Rehab prognosis appears good for goal of discharge home with family modified independent to supervision for ADLs and mobility skills. BRIANNA ESPINOZA DO Oct 24, 2018 12:56
[2018-10-24] MEDS ORDERED: BACLOFEN 10 MG (LIORESAL) TAB PO PRN (13:00)
[2018-10-24] MEDS ORDERED: ETODOLAC 200 MG (LODINE) CAP PO PRN (13:00)
--- NOTE | 2018-10-24 13:02 | Occupational Therapy Eval ---
OT Evaluation-General/PLF Medical Diagnosis Admission Date Oct 24, 2018 at 12:48 Medical Diagnosis: Pelvic/sacral fx, SI screw, wedge comp T11-12 Onset Date: Oct 13, 2018 Therapy Diagnosis Therapy Diagnosis: Weakness, Decreased ADLs Height/Weight Height (Feet): 5 Height (Inches): 3.00 Weight (Pounds): 158 Weight (Ounces): 0.5 Weight Bear Status Weight Bearing Restriction: Non Weight Bearing Location Restriction: RIVERA FEET Referral Physician: Dr. Govea Referral Reason: Activity Tolerance, Self Care, Evaluation/Treatment, Strengthening/ROM Medical History Pertinent Medical History: Arthritis, GERD, HTN, Hypothroidism Additional Medical History Multiple falls, hyponatremia, anxiety, expressive aphasia Current History Pt. states that she fell at home. States that she laid there for several hours before being discovered. Reviewed History: Yes Social History Home: Single Level Current Living Status: Alone Entry Into Home: Level Entry ADL-Prior Level of Function Therapy Code Descriptions/Definitions Functional [place] Measure: 0=Not Assessed/NA 4=Minimal Assistance 1=Total Assistance 5=Supervision or Setup 2=Maximal Assistance 6=Modified [place] 3=Moderate Assistance 7=Complete [place] Therapy Quality Codes: 6 Independent with activity with or without an assistive device 5 Patient requires set up or clean up by helper. Patient completes activity by themselves 4 Supervision or touching assist (CGA). [place] provide cues , steadying assist 3 The helper provides less than half the effort to complete the activity 2 The helper provides more than half the effort to complete the activity 1 Dependent. The helper does all the effort to complete an activity 7 Patient refused to complete or attempt activity 9 The patient did not perform the activity before the current illness or injury 88 Not attempted due to Medical conditions or safety concerns Functional Abilities and Goals: Independent: Patient completed the activities by him/herself, with or without an assistive device, with no assistance from a helper. Needed Some Help: Patient needed partial assistance from another person to complete activities. Dependent: A helper completed the activities for the patient. Unknown: Not Applicable: ADL PLOF Comments Pt. reports that she was independent with ADLs such as bathing and dressing, but that her friend assists her with shopping. Self Care: Unknown Functional Cognition: Unknown DME/Equipment Comments Pt. reports that she uses a walker typically. Drive Self: No OT Current Status Subjective Pt. reports pain but does not report pain level. Nursing working on admitting pt. Appearance Pt. in bed. Alert. Agrees to work with therapy. Mental Status/Objective Patient Orientation: Person Current Hand Dominance: Right Upper Extremity ROM Pt. is able to flex bilateral shoulders to approximately 90 degrees. Upper Extremity Strength Right UE- Overall 2+5 strength. States that she fell on this side and that is why it is weaker. Left UE- Overall 3+/5 ADL-Treatment Grooming (FIM): 3 (Pt. attempts to brush her hair but is unable to thoroughly complete it. OT finishes this for her.) Upper Body Dressing (FIM): 2 (Pt. is unable to doff her paper shirt that she came with. Assist to don shirt/gown.) Upper Body Dressing (QC): 2 Lower Body Dressing (FIM): 2 (Pt. is unable to reach her feet. AE came with her that was issued at previous facility. Pt. attempts to use this equipment but still requires multiple cues and max assist.) Lower Body Dressing (QC): 2 On/Off Footwear (QC): 2 Transfers (B, C, W/C) (FIM): 1 (Max assist supine-sit. Pt. able to sit on side of bed with minimal support at times. Max x2 for sit-supine and bed mobility.) OT/PT co-treated due to pt's need of skilled assist x 2. OT introduced ADL skills and AE while PT focused on transfer training. Pt. is NWB in bilateral LE. Once pt. was back in bed supine, bed was placed in chair position for comfort level. Pt. educated on how to call for lunch. All needs met and pt. speaking with medical student when therapy left room. Education OT Patient Education: Correct positioning, Modified ADL techniques, Progress toward Goal/Update tx plan, Purpose of tx/functional activities, Reviewed precautions, Rehab process, Transfer techniques, Use of adapted equipment Teaching Recipient: Patient Teaching Methods: Demonstration, Discussion Response to Teaching: Verbalize Understanding, Return Demonstration, Reinforcement Needed OT Short Term Goals Short Term Goals Time Frame: Nov 07, 2018 Eating(FIM): 5 Grooming(FIM): 5 Bathing(FIM): 4 Upper Body Dressing(FIM): 4 Lower Body Dressing(FIM): 3 Toileting(FIM): 3 Transfers (B,C,W/C) (FIM): 3 Toilet/Commode Transfer(FIM): 3 Additional Short Term Goals: 1-Demonstrate ADL Tasks, 2-Verbalize Understanding, 3-ImproveStrength/Abilio 1=Demonstrate adherence to instructed precautions during ADL tasks. 2=Patient will verbalize/demonstrate understanding of assistive devices/modifications for ADL. 3=Patient will improve strength/tolerance for activity to enable patient to perform ADL's. OT Detention Goals Proration Clerk Goals Time Frame: Nov 21, 2018 Eating (FIM): 6 Eating (QC): 6 Groomin Oral Hygiene (QC): 5 Bathing(FIM): 4 Shower/Bathe Self (QC): 4 Upper Body Dressing(FIM): 5 Upper Body Dressing (QC): 5 Lower Body Dressing(FIM): 5 Lower Body Dressing (QC): 5 On/Off Footwear (QC): 5 Toileting(FIM): 5 Toileting Hygiene (QC): 5 Transfers (B,C,W/C) (FIM): 5 Toilet/Commode Transfer(FIM): 5 Toilet/Commode Transfer (QC): 5 Shower Transfer(FIM): 3 Additional Goals: 1-Demonstrate ADL Tasks, 2-Verbalize Understanding, 3- ImproveStrength/Abilio 1=Demonstrate adherence to instructed precautions during ADL tasks. 2=Patient will verbalize/demonstrate understanding of assistive devic es/modifications for ADL. 3=Patient will improve strength/tolerance for activity to enable patient to perform ADL's. OT Education/Plan Problem List/Assessment Assessment: Decreased Activ Tolerance, Decreased UE Strength, Dependent Transfers, Impaired Bed Mobility, Impaired Cognition, Impaired Funct Balance, Impaired I ADL's, Impaired Self-Care Skills, Restricted Funct UE ROM Discharge Recommendations Plan/Recommendations: Continue POC Comment Discharge location and equipment needs to be determined. Barriers to Progress NWB bilateral LE Treatment Plan/Plan of Care Treatment,Training & Education: Yes Patient would benefit from OT for education, treatment and training to promote independence in ADL's, mobility, safety and/or upper extremity function for ADL's. Plan of Care: ADL Retraining, Functional Mobility, Group Exercise/Act as Ind, UE Funct Exercise/Act Treatment Duration: Nov 21, 2018 Frequency: At least 5 of 7 days/Wk (IRF) Estimated Hrs Per Day: 1.5 hours per day Agreement: Yes Rehab Potential: Fair Time/GCodes Start Time: 12:10 Stop Time: 12:35 Total Time Billed (hr/min): 10 Billed Treatment Time [id number] OT eval [id number] PT eval Co-treatment performed. Please see above note for designated roles. THOMAS SAHU OT Oct 24, 2018 13:02
--- NOTE | 2018-10-24 13:55 | Physical Therapy Evaluation ---
PT Evaluation-General Medical Diagnosis Admission Date Oct 24, 2018 at 12:48 Medical Diagnosis: Pelvic/sacral fx, SI screw, wedge comp T11-12 Onset Date: Oct 13, 2018 Therapy Diagnosis Therapy Diagnosis: generalized weakness/debility Height/Weight Height (Feet): 5 Height (Inches): 3.00 Weight (Pounds): 158 Weight (Ounces): 0.5 Precautions Precautions/Isolations: Fall Prevention, Standard Precautions Weight Bear Status Right Lower Extremity: Right Non Weight Bearing Left Lower Extremity: Left Non Weight Bearing Referral Physician: Dr. Govea Reason for Referral: Evaluation/Treatment Medical History Pertinent Medical History: Arthritis, GERD, HTN, Hypothroidism Current History multiple falls at home resulting in T11-12 vertebral fractures/spinal compression and sacral/pelvic fractures requiring surgical intervention Reviewed History: Yes Social History Home: Single Level Current Living Status: Alone Entry Into Home: Level Entry Prior/Core FIM Prior Level of Function Therapy Code Descriptions/Definitions Functional [place] Measure: 0=Not Assessed/NA 4=Minimal Assistance 1=Total Assistance 5=Supervision or Setup 2=Maximal Assistance 6=Modified [place] 3=Moderate Assistance 7=Complete [place] Therapy Quality Codes: 6 Independent with activity with or without an assistive device 5 Patient requires set up or clean up by helper. Patient completes activity by themselves 4 Supervision or touching assist (CGA). [place] provide cues , steadying assist 3 The helper provides less than half the effort to complete the activity 2 The helper provides more than half the effort to complete the activity 1 Dependent. The helper does all the effort to complete an activity 7 Patient refused to complete or attempt activity 9 The patient did not perform the activity before the current illness or injury 88 Not attempted due to Medical conditions or safety concerns Functional Abilities and Goals: Independent: Patient completed the activities by him/herself, with or without an assistive device, with no assistance from a helper. Needed Some Help: Patient needed partial assistance from another person to complete activities. Dependent: A helper completed the activities for the patient. Unknown: Not Applicable: Bed Mobility: 6 Transfers (B,C,W/C) (FIM): 6 Gait: 6 Stairs: 0 Indoor Mobility (Ambulation): Independent Stairs: Not [place] Prior Devices Use: Walker does not drive PT Evaluation-Current Subjective Patient agrees to PT. Patient appears anxious, however, very pleasant. Pain Numeric Pain Scale: 8 Location: Bone Location Body Site: Pelvic Pain Description: Acute Objective Patient Orientation: Person, Time, Situation Problem Solving: Fair ROM/Strength ROM Lower Extremities bilateral LE WFL Strenght Lower Extremities 3-/5 grossly bilateral LE Integumentary/Posture Integumentary refer to nursing notes Bowel Incontinence: Yes Bladder Incontinence: Yes Posture WFL Neuromuscular (Tone, Coordination, Reflexes) grossly intact Sensory Vision: Functional Hearing: Functional Hand Dominance: Right Sensation Right Lower Extremit: Impaired Sensation Left Lower Extremity: Impaired Transfers Therapy Code Descriptions/Definitions Functional [place] Measure: 0=Not Assessed/NA 4=Minimal Assistance 1=Total Assistance 5=Supervision or Setup 2=Maximal Assistance 6=Modified [place] 3=Moderate Assistance 7=Complete [place] Therapy Quality Codes: 6 Independent with activity with or without an assistive device 5 Patient requires set up or clean up by helper. Patient completes activity by themselves 4 Supervision or touching assist (CGA). [place] provide cues , steadying assist 3 The helper provides less than half the effort to complete the activity 2 The helper provides more than half the effort to complete the activity 1 Dependent. The helper does all the effort to complete an activity 7 Patient refused to complete or attempt activity 9 The patient did not perform the activity before the current illness or injury 88 Not attempted due to Medical conditions or safety concerns Transfers (B, C, W/C) (FIM): 1 Scootin Rollin Roll Left to Right (QC): 1 Supine to/from Sit: 1 Sit to/from Stand: 0 (NWB bilateral LE) bed t/f WC(FIM only if WC use): 0 Sit to Lying (QC): 1 Lying to Sitting/Side of Bed(Q: 1 Sit to Stand (QC): 88 Chair/Xzf-oc-Dvjhg Xfer(QC): 88 Car Transfer (QC): 88 Patient is NWB bilateral LE/CoTreat with OT with PT focus on bed mobility and sitting balance while OT address upper body MMT and brushing hair/ADL's with AD's Gait Does the Patient Walk?: No and Walking Goal NOT indicated Stairs Stairs (FIM): 0 1 Step (curb) (QC): 88 4 Steps (QC): 88 12 Steps (QC): 88 If not tested on admit;explain Patient is NWB bilateral LE due to multiple pelvic fractures and surgical repair of SI with screw placement Balance Sitting Static: Fair Sitting Dynamic: Fair Picking up an Object (QC): 4 Assessment/Needs 67 y.o. female, will benefit from skilled PT to address functional strength and mobility. Patient is NWB bilateral LE for unknown length of time and lives alone. From a PT standpoint, patient will require extended care facility to ensure proper/total healing before returning to home environment independently. Rehab Potential: Fair PT Short Term Goals Short Term Goals Time Frame: Nov 09, 2018 Transfers (B,C,W/C) (FIM): 3 (slide board bed<>w/c) PT Mud Mill Tender Goals [place] Tender Goals PT Shelter Goals Time Frame: Nov 23, 2018 Transfers (B,C,W/C) (FIM): 4 Sit to Lying (QC): 5 Lying-Sitting on Side/Bed(QC): 5 Sit to Stand (QC): 88 Rollin Roll Left to Right (QC): 5 Chair/Kph-bx-Sucxd Xfer(QC): 4 Car Transfer (QC): 4 Does the Patient Walk: No and Walking Goal NOT indicated Does the Pt use WC or Scooter?: Yes Wheelchair (FIM): 2 Wheelchair distance (FIM): 2=701-28 ft Distance: 100' Wheelchair Level of Assist: 4 Wheel 50 feet with 2 turns (QC: 5 Stairs (FIM): 0 1 Step (curb) (QC): 88 4 Steps (QC): 88 12 Steps (QC): 88 Picking up an Object (QC): 5 PT Plan Problem List Problem List: Activity Tolerance, Functional Strength, Safety, Balance, Transfer, Bed Mobility, ROM Treatment/Plan Treatment Plan: Continue Plan of Care Treatment Plan: Bed Mobility, Concurrent Therapy, Education, Functional Activ ity Abilio, Functional Strength, Group Therapy, Safety, Therapeutic Exercise, Transfers Treatment Duration: Nov 23, 2018 Frequency: At least 5 of 7 days/Wk (IRF) Estimated Hrs Per Day: 1.5 hours per day Patient and/or Family Agrees t: Yes Safety Risks/Education Patient Education: Transfer Techniques, Reviewed Precautions, Safety Issues Teaching Recipient: Patient Teaching Methods: Demonstration, Discussion Response to Teaching: Reinforcement Needed Discharge Recommendations Therapy Discharge Recommendati: Other, See Comments ([facility]) Time/GCodes Time In: 1210 Time Out: 1235 Total Billed Treatment Time: 25 Total Billed Treatment 1 visit EVModC 15 min (25 total minutes with co treat with OT who performed 10 min evaluation) ANNIKA DIAZ PT Oct 24, 2018 13:55
--- NOTE | 2018-10-24 14:32 | ST Cognitive Linguistic Eval ---
Speech Evaluation-General Medical Diagnosis Pelvic/sacral fx, SI screw, wedge comp T11-12 Onset Date: Oct 13, 2018 Therapy Diagnosis Therapy Diagnosis: Cognitive-communication Precautions Precautions: Fall Precautions/Isolations: Fall Prevention, Standard Precautions Referral Referring Physician: Dr. Govea Reason for Referral: Evaluation/Treatment Medical History Pertinent Medical History: Arthritis, GERD, HTN, Hypothroidism Arthritis, HTN, Hypothyroidism, GERD Current History Pelvic/sacral rx, SI screw, wedge comp T11-12 Reviewed History: Yes Social History Home: Single Level Current Living Status: Alone Speech PLF-Current Status Prior Level of Function The patient lived alone where she was independent for most of her daily needs. She has family near by for support as needed. Subjective The patient was pleasant and compliant with the cognitive assessment. Language Eval: Auditory Comprehends Simple Yes/No Ques: Functional Indent/Objects Multiple Crow[place]: Functional Ident/Pics in Multiple [place]: Functional Follows 1-Step Commands: Functional Follows Complex Directions: Mild Follows General Conversations: Mild Language Eval: Verbal Language Completes Spontaneous Greeting: Functional Produces Auto, Serial Info: Functional Imitates Simple Words/Phrases: Functional Word Finding: Mild Requests Basic Needs: Functional States Basic Personal Info: Functional Expresses Complex Ideas: Mild Objective Cognitive Domain Attention: WNL Memory: Moderate Problem Solving: Mild Executive Functions: Moderate Visuospatial Skills: Mild Composite Severity Rating: Mild Clock Drawing Severity Rating: Mild Objective Formal/Standardized Tests [facility] Mental Status ([facility]) Results , which falls in the dementia range of function. Oral Motor/Speech Production Within Functional Limits Impression The patient is a pleasant 67 year old female who was admitted to ARU after transport form [facility]. She was admitted to ARU s/p fall which resulted in a severe injury. The patient was given the SLUMS at bedside. Score results of indicates a dementia range of function. She was noted to have significant difficulty with retention of any new information, requiring frequent repetitions. The patient will receive skilled cognitive therapy with focus on safety awareness, memory and problem solving in order to return home safely. Communication/Social Cognition Comprehension: 5 Expression: 4 Social Interaction: 6 Problem Solvin Memory: 3 Speech Patient Assess Expression of Ideas/Wants: Frequently (2) Understanding Verbal Content: Usually Understands (3) Brief Interview-Mental Status: Yes Repetition of Three Words: Three (3) Temporal Orientation: Year: Correct (3) Temporal Orientation: Month: Accurate within 5 days(2) Temporal Orientation: Day: Correct (1) Recall : Wear to say "Sock": No, could not recall (0) Recall : Color: No, could not recall (0) Recall : Bed: No, could not recall (0) Memory/Recall Ability: Current season, That he or she is in a hsp/hsp unit Speech Short Term Goals Short Term Goals Short Term Goals 1) The patient will complete memory tasks with 80% or greater with minimal cues. 2) The patient will complete problem solving tasks with 80% or greater with minimal cues. 3) The patient will complete safety awareness tasks with 80% or greater with minimal cues. Speech Piercer Goals Senior Care Goals The patient will improve cognitive skills in order to return home safely. Speech-Plan Patient/Family Goals Patient/Family Goals: Patient plans on returning home post rehab with family near by for support. Treatment Plan Speech Therapy Treatment Plan: Continue Plan of Care The patient will receive skilled therapy. Treatment Duration: Nov 08, 2018 Frequency: 5 times per week Estimated Hrs Per Day: .5 hour per day Rehab Potential: Fair Barriers to Learning: Patient has moderate cognitive deficits. Pt/Family Agrees to Plan: Yes Safety Risks/Education Teaching Recipient: Patient Teaching Methods: Discussion Response to Teaching: Verbalize Understanding Education Topics Provided: Safety within her room and communication of wants/needs. Time Speech Therapy Time In: 13:45 Speech Therapy Time Out: 15:00 Total Billed Time: 15 Billed Treatment Time 1, SPSNDCOMP BILL Odonnell Oct 24, 2018 14:32
[2018-10-24] MEDS ORDERED: IBUPROFEN 800 MG (MOTRIN) TAB PO PRN (15:30)
[2018-10-24] MEDS: busPIRone 10 MG (BUSPAR) TAB PO SCH ×2 (15:41→21:20)
[2018-10-24] MEDS: IBUPROFEN 800 MG (MOTRIN) TAB PO SCH ×2 (15:41→21:20)
[2018-10-24 16:00] VITALS: BP 109/66
[2018-10-24] MEDS: VENLAFAXINE 50 MG (EFFEXOR) TABLET PO SCH (16:46)
[2018-10-24] MEDS: CALCIUM CARB + VIT D 600 MG (CALCARB + D) TAB PO SCH (16:46)
--- NOTE | 2018-10-24 16:46 | NUR ---
KATY RT NOTIFIED OF RT MEDS ORDERED FOR THIS PT.
[2018-10-24] MEDS: RT-ADVAIR HFA 45/21 MCG PER PUFF IH SCH (19:30)
--- NOTE | 2018-10-24 19:50 | NUR ---
pt transfer to room 232 per bed. belonging taken with pt. report was given by Dayshinicanor RN to ARU staff. Care of pt turned over to Catrachita DAMON
--- NOTE | 2018-10-24 19:54 | NUR ---
pt transferred to room 232 per bed , report received from mart ruiz rn
[2018-10-24 21:18] VITALS: BP 111/74
[2018-10-24] MEDS: ISOSORBIDE MONONITRATE 60 MG (IMDUR) TAB PO SCH (21:19)
[2018-10-24] MEDS: SENNA W/DOCUSATE (SENOKOT S) TABLET PO SCH (21:19)
[2018-10-24] MEDS: GABAPENTIN 400 MG (NEURONTIN) CAP PO SCH (21:19)
[2018-10-24] MEDS: ENOXAPARIN 30 MG/0.3 ML (LOVENOX) SYR SC SCH (21:20)
[2018-10-24] MEDS: MONTELUKAST 10 MG (SINGULAIR) TAB PO SCH (21:20)
[2018-10-24] MEDS: ZOLPIDEM 5 MG (AMBIEN) TAB PO PRN (23:04)
[2018-10-24] MEDS: FLUTICASONE NASAL SPRAY (FLONASE) 16 GM BTL NS SCH (23:04)
[2018-10-25] MEDS: oxyCODONE/APAP 5/325MG (PERCOCET 5) TABLET PO PRN ×3 (02:33→21:03)
[2018-10-25 05:58] LABS: BASOPHILS # (AUTO) 0.1 10^3/uL (0.0-0.1); BASOPHILS % (AUTO) 1 % (0-10); EOSINOPHILS # (AUTO) 0.2 10^3/uL (0.0-0.3); EOSINOPHILS % (AUTO) 3 % (0-10); HEMATOCRIT 28 % (35-52); LYMPHOCYTES # (AUTO) 2.6 X 10^3 (1.0-4.0); LYMPHOCYTES % (AUTO) 41 % (12-44); MEAN CORPUSCULAR HEMOGLOBIN 33 PG (25-34); MEAN CORPUSCULAR HGB CONC 32 G/DL (32-36); MEAN CORPUSCULAR VOLUME 101 FL (80-99); MEAN PLATELET VOLUME 8.5 FL (7.4-10.4); MONOCYTES # (AUTO) 0.6 X 10^3 (0.0-1.0); MONOCYTES % (AUTO) 9 % (0-12); NEUTROPHILS # (AUTO) 2.9 X 10^3 (1.8-7.8); NEUTROPHILS % (AUTO) 46 % (42-75); PLATELET COUNT 518 10^3/uL (130-400); RED CELL DISTRIBUTION WIDTH 14.4 % (10.0-14.5); WHITE BLOOD COUNT 6.3 10^3/uL (4.3-11.0)
[2018-10-25] MEDS: VENLAFAXINE 50 MG (EFFEXOR) TABLET PO SCH ×2 (06:07→17:07)
[2018-10-25] MEDS: LEVOTHYROXINE 50 MCG (LEVOTHROID) TAB PO SCH (06:07)
[2018-10-25] MEDS: PANTOPRAZOLE 40 MG (PROTONIX) TAB PO SCH (06:07)
[2018-10-25] MEDS: CALCIUM CARB + VIT D 600 MG (CALCARB + D) TAB PO SCH ×2 (06:07→17:07)
[2018-10-25 06:10] VITALS: BP 119/69
[2018-10-25 06:23] LABS: ALANINE AMINOTRANSFERASE 24 U/L (0-55); ALBUMIN 2.7 GM/DL (3.2-4.5); ALKALINE PHOSPHATASE 145 U/L (40-136); BILIRUBIN,TOTAL 0.5 MG/DL (0.1-1.0); BUN/CREATININE RATIO 22; CALCIUM 9.2 MG/DL (8.5-10.1); CARBON DIOXIDE 27 MMOL/L (21-32); CHLORIDE 93 MMOL/L (98-107); CREATININE SERUM 0.81 MG/DL (0.60-1.30); GFR ESTIMATED > 60; GLUCOSE 88 MG/DL (70-105); POTASSIUM 3.9 MMOL/L (3.6-5.0); SODIUM 128 MMOL/L (135-145); TOTAL PROTEIN 7.8 GM/DL (6.4-8.2)
[2018-10-25] MEDS: RT-ADVAIR HFA 45/21 MCG PER PUFF IH SCH ×2 (07:49→19:44)
[2018-10-25 08:00] VITALS: BP 125/65
[2018-10-25] MEDS: LORATADINE (CLARITIN) 10 MG TAB PO SCH (08:59)
[2018-10-25] MEDS: IBUPROFEN 800 MG (MOTRIN) TAB PO SCH ×3 (08:59→20:54)
[2018-10-25] MEDS: busPIRone 10 MG (BUSPAR) TAB PO SCH ×3 (08:59→20:54)
[2018-10-25] MEDS ORDERED: NON-FORMULARY MEDICATION 1 EA EA (Dexlansoprazole (Dexilant) 60 MG) PO SCH (09:00)
[2018-10-25] MEDS ORDERED: HYDROCHLOROTHIAZIDE 25 MG (HCTZ) TAB PO SCH (09:00)
[2018-10-25] MEDS: FLUTICASONE NASAL SPRAY (FLONASE) 16 GM BTL NS SCH ×2 (09:00→20:56)
--- NOTE | 2018-10-25 09:00 | NUR ---
STATES HAVING A LOT OF PAIN, BUT FEELS GOOD PAIN RELIEF WITH PAIN MEDS. IS ANXIOUS TO BEGIN THERAPY BECAUSE WANTS TO GET BETTER. REQUESTED LAXATIVE AND ORDER PUT IN FOR MIRALAX.
[2018-10-25] MEDS: ENOXAPARIN 30 MG/0.3 ML (LOVENOX) SYR SC SCH ×2 (09:02→21:03)
[2018-10-25] MEDS: IPRATROPIUM 0.03% NS SCH ×3 (10:41→20:56)
[2018-10-25] MEDS: LINACLOTIDE 290 MCG (LINZESS) CAPSULE PO SCH (10:42)
--- NOTE | 2018-10-25 11:01 | Physical Therapy Daily Note ---
PT Daily Note-Current Subjective Patient in bed pre tx, agrees to PT, has no complaints of pain at rest, will be co-treating with OT due to poor patient mobility, strength, endurance, balance, NWB on both LE, the need to coordinate UE and LE during activity. Appearance Patient BTB post tx with nurse call, phone, tray, all needs met. Mental Status Patient Orientation: Person, Place, Situation Transfers Therapy Code Descriptions/Definitions Functional [place] Measure: 0=Not Assessed/NA 4=Minimal Assistance 1=Total Assistance 5=Supervision or Setup 2=Maximal Assistance 6=Modified [place] 3=Moderate Assistance 7=Complete [place] Therapy Quality Codes: 6 Independent with activity with or without an assistive device 5 Patient requires set up or clean up by helper. Patient completes activity by themselves 4 Supervision or touching assist (CGA). [place] provide cues , steadying assist 3 The helper provides less than half the effort to complete the activity 2 The helper provides more than half the effort to complete the activity 1 Dependent. The helper does all the effort to complete an activity 7 Patient refused to complete or attempt activity 9 The patient did not perform the activity before the current illness or injury 88 Not attempted due to Medical conditions or safety concerns Transfers (B, C, W/C) (FIM): 3 Scootin Rollin Supine to/from Sit: 3 Bed to/from Chair: 3 Mod assist for bed mobility and supine <-> sit, performed sliding board transfer with mod assist and performed it about 3 times. Patient was taken to the shower for bathing, had to perform a chair pushup several times for dressing and positioning. Weight Bearing Right Lower Extremity: Right Non Weight Bearing Left Lower Extremity: Left Non Weight Bearing Wheelchair Training Does the Pt Use a Wheelchair?: Yes Wheelchair (FIM): 4 Distance: 150' Wheelchair Level of Assist: 4 Type of Wheelchair: Manual min assist cues for hand placement Treatments bed mobility, transfers, bathing, dressing, grooming, WC mobility Assessment Current Status: Fair Progress Improving sliding board transfers. PT performed transfers, bed mobility, assisted during bathing and ADL's, OT worked on bathing, dressing, ADL's, assist with transfers. PT Short Term Goals Short Term Goals Time Frame: Nov 09, 2018 Transfers (B,C,W/C) (FIM): 3 (slide board bed<>w/c) PT Skilled Nursing Goals Manager [employer] Applications Goals PT Skilled Nursing Goals Time Frame: Nov 23, 2018 Transfers (B,C,W/C) (FIM): 4 Sit to Lying (QC): 5 Lying-Sitting on Side/Bed(QC): 5 Sit to Stand (QC): 88 Rollin Roll Left to Right (QC): 5 Chair/Xpp-jr-Gbwtb Xfer(QC): 4 Car Transfer (QC): 4 Does the Patient Walk: No and Walking Goal NOT indicated Does the Pt use WC or Scooter?: Yes Wheelchair (FIM): 2 Wheelchair distance (FIM): 1=431-74 ft Distance: 100' Wheelchair Level of Assist: 4 Wheel 50 feet with 2 turns (QC: 5 Stairs (FIM): 0 1 Step (curb) (QC): 88 4 Steps (QC): 88 12 Steps (QC): 88 Picking up an Object (QC): 5 PT Plan Problem List Problem List: Activity Tolerance, Functional Strength, Safety, Balance, Transfer, Bed Mobility, ROM Treatment/Plan Treatment Plan: Continue Plan of Care Treatment Plan: Bed Mobility, Concurrent Therapy, Education, Functional Activity Abilio, Functional Strength, Group Therapy, Safety, Therapeutic Exercise, Transfers Treatment Duration: Nov 23, 2018 Frequency: At least 5 of 7 days/Wk (IRF) Estimated Hrs Per Day: 1.5 hours per day Patient and/or Family Agrees t: Yes Safety Risks/Education Patient Education: Transfer Techniques, Correct Positioning, W/C Management, Safety Issues Teaching Recipient: Patient Teaching Methods: Demonstration, Discussion Response to Teaching: Reinforcement Needed Time/GCodes Time In: 0900 Time Out: 1000 Total Billed Treatment Time: 60 Total Billed Treatment 1 visit [facility] 10' FA 50' co-treated for 60' SANFORD WOODY PT Oct 25, 2018 11:01
[2018-10-25] MEDS: ESTROGENS CONJUGATED 0.45 MG (PREMARIN) TAB PO SCH (11:10)
[2018-10-25] MEDS: OLANZapine 5 MG (ZyPREXA) TAB PO SCH (11:10)
[2018-10-25] MEDS: POLYETHYLENE GLYCOL 17 GM (MIRALAX) PACK PO SCH ×2 (11:15→20:57)
--- NOTE | 2018-10-25 11:47 | Occupational Ther Daily Note ---
OT Current Status-Daily Note Subjective Pt alert, lying in bed. Pt agrees to therapy. Pt very anxious about all aspects of therapy session. Pt requires encouragement. Mental Status/Objective Patient Orientation: Person, Place, Time, Situation Therapy Code Descriptions/Definitions Functional [place] Measure: 0=Not Assessed/NA 4=Minimal Assistance 1=Total Assistance 5=Supervision or Setup 2=Maximal Assistance 6=Modified [place] 3=Moderate Assistance 7=Complete [place] ADL-Treatment OT/PT co-treat for entire session, requires assist of 2 skilled personnel due to the complexity of needs and B LE non-wt bearing which hinders pt's ability to assist with transfer and ADLs. Assist of 2 to complete sliding board transfers with PT addressing placement of board and positioning self and OT addressing UE use/placement and guiding of trunk/buttock to safely complete task. PT working on transfers and sitting balance. OT working on ADLs during transfers and sitting balance. Pt required verbal cues to initiate tasks due to increased anxiety. Pt transferred using sliding board to shower chair, assist x2. Transported to large shower room. Pt complete shower using shower chair with cutout and hand held shower, assist needed to wash lower legs and close SBA for safety during pt bathing other areas. After set up, pt able to don/doff upper body clothing. Assist x2 to don/doff lower body clothing. Mod I for grooming sitting at sink in w/c. Assist x2 to transfer back to bed using sliding board. After therapy, pt lying in bed with call light/phone in reach. All needs met in room. Therapy Code Descriptions/Definitions Functional [place] Measure: 0=Not Assessed/NA 4=Minimal Assistance 1=Total Assistance 5=Supervision or Setup 2=Maximal Assistance 6=Modified [place] 3=Moderate Assistance 7=Complete [place] Therapy Quality Codes: 6 Independent with activity with or without an assistive device 5 Patient requires set up or clean up by helper. Patient completes activity by themselves 4 Supervision or touching assist (CGA). Hayden provide cues , steadying assist 3 The helper provides less than half the effort to complete the activity 2 The helper provides more than half the effort to complete the activity 1 Dependent. The helper does all the effort to complete an activity 7 Patient refused to complete or attempt activity 9 The patient did not perform the activity before the current illness or injury 88 Not attempted due to Medical conditions or safety concerns Grooming (FIM): 6 Oral Hygiene (QC): 6 Bathing (FIM): 2 Bathing Location: L Arm, R Arm, L Upper Leg, R Upper Leg, Chest, Abdomen, Buttocks, Perineal Area Shower/Bathe Self (QC): 2 Upper Body (FIM): 4 Upper Body Dressing (QC): 3 Lower Body Dressing (FIM): 1 Lower Body Dressing (QC): 1 On/Off Footwear (QC): 1 Toileting (FIM): 1 (Using shower chair with cutout, pt requires assist x2 to manipulate clothing and pt able to cleanse self on seat.) Toileting Hygiene (QC): 1 Transfers (B, C, W/C) (FIM): 1 Toilet/Commode Transfer (FIM): 1 (Using shower chair with cutout, pt uses sliding board transfer with assist x2.) Toilet Transfer (QC): 1 Shower Transfer(FIM): 1 OT Short Term Goals Short Term Goals Time Frame: Nov 07, 2018 Eating(FIM): 5 Grooming(FIM): 5 Bathing(FIM): 4 Upper Body Dressing(FIM): 4 Lower Body Dressing(FIM): 3 Toileting(FIM): 3 Transfers (B,C,W/C) (FIM): 3 (slide board bed<>w/c) Toilet/Commode Transfer(FIM): 3 Additional Short Term Goals: 1-Demonstrate ADL Tasks, 2-Verbalize Understanding, 3-ImproveStrength/Abilio 1=Demonstrate adherence to instructed precautions during ADL tasks. 2=Patient will verbalize/demonstrate understanding of assistive devices/ modifications for ADL. 3=Patient will improve strength/tolerance for activity to enable patient to perform ADL's. OT Health Information Tech Goals Intermediate Goals Time Frame: Nov 21, 2018 Eating (FIM): 6 Eating (QC): 6 Groomin Oral Hygiene (QC): 5 Bathing(FIM): 4 Shower/Bathe Self (QC): 4 Upper Body Dressing(FIM): 5 Upper Body Dressing (QC): 5 Lower Body Dressing(FIM): 5 Lower Body Dressing (QC): 5 On/Off Footwear (QC): 5 Toileting(FIM): 5 Toileting Hygiene (QC): 5 Transfers (B,C,W/C) (FIM): 5 Toilet/Commode Transfer(FIM): 5 Toilet/Commode Transfer (QC): 5 Shower Transfer(FIM): 3 Additional Goals: 1-Demonstrate ADL Tasks, 2-Verbalize Understanding, 3- ImproveStrength/Abilio 1=Demonstrate adherence to instructed precautions during ADL tasks. 2=Patient will verbalize/demonstrate understanding of assistive devices/modifications for ADL. 3=Patient will improve strength/tolerance for activity to enable patient to perform ADL's. OT Education/Plan Problem List/Assessment Assessment: Decreased Activ Tolerance, Decreased UE Strength, Dependent Transfers, Impaired Bed Mobility, Impaired Cognition, Impaired Coordination, Impaired Funct Balance, Impaired Self-Care Skills Discharge Recommendations Plan/Recommendations: Continue POC Treatment Plan/Plan of Care Patient would benefit from OT for education, treatment and training to promote independence in ADL's, mobility, safety and/or upper extremity function for ADL's. Plan of Care: ADL Retraining, Functional Mobility, Group Exercise/Act as Ind, UE Funct Exercise/Act Treatment Duration: Nov 21, 2018 Frequency: At least 5 of 7 days/Wk (IRF) Estimated Hrs Per Day: 1.5 hours per day Agreement: Yes Rehab Potential: Fair Time/GCodes Start Time: 09:00 Stop Time: 10:00 Total Time Billed (hr/min): 60 Billed Treatment Time 1 visit-ADL 4 (60 min) co-treat with PT 60 min NATE PROCTOR Oct 25, 2018 11:47
--- NOTE | 2018-10-25 13:18 | Speech Therapy Daily Note ---
Speech Daily Progress Note Subjective Date Seen by Provider: Oct 25, 2018 Time Seen by Provider: 00:30 The patient appears more clearer thinking than she was yesterday during her cognitive evaluation. Objective The patient completed problem solving questions related to her daily needs at 75% with moderate cues. Assessment Assessment Current Status: Fair Progress Treatment Plan Continue Plan of Care Communication Comprehension: 5 Expression: 4 Social Cognition Social Interaction: 6 Problem Solvin Memory: 3 Speech Short Term Goals Short Term Goals Short Term Goals 1) The patient will complete memory tasks with 80% or greater with minimal cues. 2) The patient will complete problem solving tasks with 80% or greater with minimal cues. 3) The patient will complete safety awareness tasks with 80% or greater with minimal cues. Speech Logistics Assistant Goals Logistics Assistant Goals The patient will improve cognitive skills in order to return home safely. Speech-Plan Patient/Family Goals Patient/Family Goals: The patient plans on returning home where she lives alone. However her progress will help to determine the best discharge placement when the time comes. Treatment Plan Speech Therapy Treatment Plan: Continue Plan of Care The patient will continue to receive skilled cognitive therapy. Treatment Duration: Nov 08, 2018 Frequency: 5 times per week Estimated Hrs Per Day: .5 hour per day Rehab Potential: Fair Barriers to Learning: Patient has significant cognitive deficits. Pt/Family Agrees to Plan: Yes Safety Risks/Education Teaching Recipient: Patient Teaching Methods: Demonstration, Discussion Response to Teaching: Verbalize Understanding, Return Demonstration Education Topics Provided: Safety within her room and communication of her wants/needs. Time Speech Therapy Time In: 08:30 Speech Therapy Time Out: 09:00 Total Billed Time: 30 Billed Treatment Time 1, BILL Pryor Oct 25, 2018 13:18
--- NOTE | 2018-10-25 14:31 | Progress Note ---
[facility] 10/25/18 1431: Subjective Date Seen by a Provider: Oct 25, 2018 Time Seen by a Provider: 06:26 Subjective/Events-last exam pt is pleasant this AM slept well Reports baclofen helped alot yesterday Is weary of PT, thinks they are going to be too hard on her, but calms down after I reassured her that they will work with her at a level that challenging yet appropriate for her level of functionality Pain is controlled, though the pt is very concerned about dosing of her pain meds, which I believe is more a reflection of her mind set rather than somatic pain. She eats well No BMs yet, has hx of chronic constipation Blum still in place, has been draining well Review of Systems General: No Chills, No Fatigue HEENT: No Head Aches Pulmonary: No Dyspnea, No Cough, No Pleuritic Chest Pain Cardiovascular: No: Chest Pain, Palpitations Gastrointestinal: Constipation; No: Nausea, Vomiting Genitourinary: No Dysuria, No Retention Objective Exam Last Set of Vital Signs Vital Signs Date Time Temp Pulse Resp B/P (MAP) Pulse Ox O2 Delivery O2 Flow Rate FiO2 10/25/18 07:49 94 Room Air 10/25/18 06:10 36.0 80 18 119/69 Capillary Refill : Less Than 3 Seconds I&O Intake and Output 10/25/18 00:00 Intake Total 400 ml Output Total 1550 ml Balance -1150 ml Intake Oral 400 ml Output Urine Total 1550 ml Daily Weight Change No General: Alert, Oriented X3, Cooperative, No Acute Distress HEENT: Atraumatic Neck: Supple Lungs: Clear to Auscultation, Normal Air Movement Heart: Regular Rate, Normal S1, Normal S2, No Murmurs Results Lab Laboratory Tests 10/25/18 05:45: White Blood Count 6.3, Red Blood Count 2.75L, Hemoglobin 9.0L, Hematocrit 28L, Mean Corpuscular Volume 101H, Mean Corpuscular Hemoglobin 33, Mean Corpuscular Hemoglobin Concent 32, Red Cell Distribution Width 14.4, Platelet Count 518H, Mean Platelet Volume 8.5, Neutrophils (%) (Auto) 46, Lymphocytes (%) (Auto) 41, Monocytes (%) (Auto) 9, Eosinophils (%) (Auto) 3, Basophils (%) (Auto) 1, Neutrophils # (Auto) 2.9, Lymphocytes # (Auto) 2.6, Monocytes # (Auto) 0.6, Eosinophils # (Auto) 0.2, Basophils # (Auto) 0.1, Sodium Level 128L, Potassium Level 3.9, Chloride Level 93L, Carbon Dioxide Level 27, Anion Gap 8, Blood Urea Nitrogen 18, Creatinine 0.81, Estimat Glomerular Filtration Rate > 60, BUN/Creatinine Ratio 22, Glucose Level 88, Calcium Level 9.2, Corrected Calcium 10.2H, Total Bilirubin 0.5, Aspartate Amino Transf (AST/SGOT) 39H, Alanine Aminotransferase (ALT/SGPT) 24, Alkaline Phosphatase 145H, Total Protein 7.8, Albumin 2.7L Assessment/Plan Assessment/Plan Assess & Plan/Chief Complaint Assessment: 1. Nondisplaced fracture of the left inferior and superior pubic ramus, 2. S/P repair of Sacral fracture with mild displacement of 1 cm, 3. Bipolar d/o, 4. HTN 5. Chronic Asthma 6. Chronic Constipation 7. Blum in place 8. Intermittent bowel incontinence 9. Bladder incontinence, neurogenic Plan: 1. Monitor mental status 2. Continue with PT/OT/ST 5. Monitor cognition 6. Maintain bowel regimen 7. DVT prophylaxis SCD 8. Lovenox 9. Pain management PRN 10. Baclofen for RLE muscle spasms Clinical Quality Measures Admission Status Admission Dx Assessment: 1. Nondisplaced fracture of the left inferior and superior pubic ramus, 2. S/P repair of Sacral fracture with mild displacement of 1 cm, 3. Mild T12 compression fracture, 4. Posterior fracture of right 9th rib. 5. Bipolar d/o, 6. HTN 7. Chronic Asthma 8. Chronic Constipation 9. Blum in place 10. Intermittent bowel incontinence 11. Bladder incontinence, neurogenic 11. Bilat [id number] Plan: 1. Inpaitent rehab 2. PT 3. OT 4. Speech therapy 5. Monitor cognition 6. Maintain bowel regimen 7. DVT prophylaxis SCD 8. Lovenox 9. Pain management PRN 10. Baclofen for RLE muscle spasms 11. Consult urology regarding bladder incontinence and Blum DVT/VTE Risk/Contraindication: Risk Factor Score Per Nursin RFS Level Per Nursing on Admit: 4+=Very High BRIANNA ESPINOZA DO 10/25/18 1533: Supervisory-Addendum Brief Verification & Attestation Participated in pt care: history, MDM, physical Personally performed: exam, history, MDM, supervision of care Care discussed with: Medical Student Procedures: n/a Results interpretation: Verified all documentation Verification and Attestation of Medical Student E/M Service A medical student performed and documented this service in my presence. I reviewed and verified all information documented by the medical student and made modifications to such information, when appropriate. I personally performed the physical exam and medical decision making. Brianna Espinoza, Oct 25, 2018,15:33 [facility] Oct 25, 2018 14:31 BRIANNA ESPINOZA DO Oct 25, 2018 15:33
--- NOTE | 2018-10-25 14:58 | Therapy Group Daily Note ---
Therapy Daily Group Note Patient Education Topic Foot Wear, Home Safety, Fall Prevention, Home Safety, Exercises Exercises LE Seated Exercise, Balance, UE Exercise Session Ratio (pt:therapist): 4:1 Goal of Session: Home Safety Strategies, UE/LE Strengthing, Other (carmina) (whitney borges) Goal Met for this Session: Yes Pt Benefit of Group: Contributions to Others, F/U Use of Strategies @Home, Increased Functional Strength, Recognition of Peers, Socialization Other/Notes Each patient participated in group therapy in the common area of rehab. Each patient ambulated or was transported and placed in a tribal to encourage patient interaction and participation. Each patient then had to introduce themselves and answer a question involving critical thinking and recall. Patient's then participated in group discussion and education about home safety and balance and performed UE and LE exercises. Finally, each patient ambulated or was transported back to bed or chair with nurse call, phone, and tray. Start Time: 13:00 Stop Time: 14:10 Total Billed Treatment Time: 70 Total Billed Treatment 1 visit GRP 70SANFORD BARROW PT Oct 25, 2018 14:58
--- NOTE | 2018-10-25 15:30 | NUR ---
DR. ESPINOZA AWARE OF SODIUM 128 AND HCTZ HAS BEEN DC'D. BACLOFEN 5 MG NOT HELPING MUSCLE SPASMA AND INCREASED TO 10 MG. STATES FEELS MOTRIN HELPS PAIN, BUT "PERCOCET IS LIKE EATING CANDY".
--- NOTE | 2018-10-25 15:34 | Individualized Plan of Care ---
Individualized Plan of Care Rehab Nursing IPOC Order Admission Date Oct 24, 2018 at 12:48 Current Orders Orders Vital Signs: Per Unit Policy ( 08,16,00 (10/23/18 15:19) Creative Specialist-Inpt Rehab Con (10/23/18 15:19) Rehab Nursing Orders-Ipoc (10/23/18 15:19) Physical Therapy Rehab Orders (10/23/18 15:19) Occupational Therapy Rehab Ord (10/23/18 15:19) Speech Therapy Rehab Orders (10/23/18 15:19) General/Regular (10/24/18 Breakfast) Intake & Output 06,14,22 (10/23/18 15:19) Weight Bearing Status (10/23/18 15:19) Precautions (Aru) (10/23/18 15:19) Weekly Weight (Lbs) WEEK (10/23/18 15:19) Rehab-Intensity Of Therapy (10/23/18 15:19) Initiate Admission Nursing Pro .admission (10/23/18 15:19) Acetaminophen Tablet (Tylenol Tablet) (10/23/18 15:30) Alprazolam Tablet (Xanax Tablet) (10/23/18 15:30) Calcium Carbonate Chew Tablet (Antacid C (10/23/18 15:30) Diphenhydramine Tablet (Benadryl Tablet) (10/23/18 15:30) Docusate Sodium Capsule (Colace Capsule) (10/23/18 15:30) Loperamide Tablet (Imodium Tablet) (10/23/18 15:30) Melatonin Tablet (Melatonin Tablet) (10/23/18 15:30) Ondansetron Oral Dissolve Tab (Zofran (10/23/18 15:30) Senna S Tablet (Senokot S Tablet) (10/23/18 21:00) Admission Order(Inpt,Obs,Sdc) (10/23/18 15:19) Transfer - Bed/Room/Location (10/24/18 12:31) Etodolac Capsule/Tablet (Lodine Capsule/ (10/24/18 13:00) Fluticasone Nasal [place]renberg (Flonase Nasal S (10/24/18 21:00) Isosorbide Mononitrate Tablet (Imdur Tab (10/24/18 21:00) Levothyroxine Tablet (Synthroid Tablet) (10/25/18 06:30) Montelukast Tablet (Singulair Tablet) (10/24/18 21:00) Oxycodone/Apap 5/325mg Tablet (Percocet (10/24/18 13:00) Pantoprazole Tablet (Protonix Tablet) (10/25/18 07:00) Tramadol Tablet (Ultram Tablet) (10/24/18 13:00) Fluticasone/Salmeterol Common (Advair 45 (10/24/18 20:00) Buspirone Tablet (Buspar Tablet) (10/24/18 15:15) Calcium Carbonate W/Vitamin D3 (Calcarb (10/24/18 17:00) Loratadine Tablet (Claritin Tablet) (10/25/18 09:00) (Nf) Dexlansoprazole (Dexilant) (10/25/18 09:00) Diclofenac 1% Gel (Voltaren 1% Gel) (10/24/18 15:30) Enoxaparin Injection (Lovenox Injection) (10/24/18 21:00) Estrogens Conjugated Tablet (Premarin Ta (10/25/18 09:00) Gabapentin Capsule/Tablet (Neurontin Cap (10/24/18 21:00) Hydrochlorothiazide Cap/Tablet (Hctz Cap (10/25/18 09:00) Ibuprofen Tablet (Motrin Tablet) (10/24/18 15:30) Lamotrigine Tablet (Lamictal Tablet) (10/25/18 09:00) Linaclotide Capsule (Nonform) (Linzess (10/25/18 09:59) Olanzapine Tablet (Zyprexa Tablet) (10/25/18 09:00) Senna S Tablet (Senokot S Tablet) (10/24/18 21:00) Venlafaxine Tablet (Effexor Tablet) (10/24/18 17:00) Zolpidem Tablet (Ambien Tablet) (10/24/18 21:00) Baclofen Tablet (Lioresal Tablet) (10/24/18 13:00) Cbc With Automated Diff (10/25/18 06:00) Comprehensive Metabolic Panel (10/25/18 06:00) Patient Visit (10/24/18 ) Pt Eval Moderate Complexity (10/24/18 ) Ibuprofen Tablet (Motrin Tablet) (10/24/18 15:26) Patient Visit (10/24/18 ) Speech Sound Lang Comp (10/24/18 ) Transfer - Bed/Room/Location (10/24/18 19:52) Transfer - Bed/Room/Location (10/24/18 19:54) Ipratropium Ns (Non-Formulary) (Atrovent (10/25/18 09:56) Polyethylene Glycol Powder Pkt (Miralax (10/25/18 10:45) Patient Visit (10/25/18 ) Functional Activities, Ea 15 (10/25/18 ) Wheelchair Mgmt/Propulsn 15min (10/25/18 ) Patient Visit (10/25/18 ) Treat. Speech/Lang/Voice (10/25/18 ) Patient Visit (10/25/18 ) Patient Visit (10/25/18 ) Therapeutic, Group (10/25/18 ) Rehab Nursing Orders: Ongoing Assess. of Cognitive Status, Ongoing Assess. of Function Status, Bladder Management, Bladder Scan, Bladder Training, Bowel Management, Bowel Training, Disease Management & Educaiton, DVT Prophylaxis, Fall Prevention, Fluid/Electrolyte/Nutrition Mgmt, Infection Prevention, Medication Management & Education, Management of Risks & Complications, Management of Skin Intergrity, Nutrition Management, Pain Management, Patient/Family Support, Safety Management, Swallow Precautions Intensity of Therapy to be met Patient to be seen: Min.3h per day/5 of 7d PT IPOC Problem List: Activity Tolerance, Functional Strength, Safety, Balance, Transfer, Bed Mobility, ROM Treatment Plan: Continue Plan of Care Bed Mobility, Concurrent Therapy, Education, Functional Activity Abilio, Functional Strength, Group Therapy, Safety, Therapeutic Exercise, Transfers Treatment Duration: Nov 23, 2018 Frequency: At least 5 of 7 days/Wk (IRF) Estimated Hrs Per Day: 1.5 hours per day OT IPOC Problems: Decreased Activ Tolerance, Decreased UE Strength, Dependent Transfers, Impaired Bed Mobility, Impaired Cognition, Impaired Coordination, Impaired Funct Balance, Impaired Self-Care Skills OT Treatment, Training and Edu: Yes Plan of Care: ADL Retraining, Functional Mobility, Group Exercise/Act as Ind, UE Funct Exercise/Act Treatment Duration: Nov 21, 2018 Frequency: At least 5 of 7 days/Wk (IRF) Estimated Hrs Per Day: 1.5 hours per day [facility] Speech Therapy Treatment Plan: Continue Plan of Care Treatment Duration: Nov 08, 2018 Frequency: 5 times per week Estimated Hrs Per Day: .5 hour per day Creative Specialist/Case Mgmt Creative Specialist/Case Managemen: Discharge Planning Dietitian/Grounds Restoration Specialist Dietitian/Grounds Restoration Specialist to monitor nutritional status and make changes and/or recommendations as needed and work with speech pathology on dietary upgrades as the occur. Physician IP Medical Issues being managed closely and that require the 24 hour availability of a physician: Recent sacral fracture causing spinal cord injury with muscle rigidity and muscle spasms with hyponatremia and anemia postoperatively and bipolar patient high risk for decompensation Medical Issues: Bowel/Bladder Function, DVT Prophylaxis, Falls Precautions, Fluid/Electrolyte/Nutrition Balance, Infection Protection, Pain Management, Swallowing Precautions Brief Synthesis of Preadmission Screen, Post-Admission Evaluation, and Therapy Evaluations: Physical therapy will focus on transfers from bed to wheelchair and less and the burden on caregivers and work on possible ambulation Occupational therapy will focus on regaining ADL independence Medical Prognosis: good Anticipated Length of Stay: 14 days ARIELA ESPINOZA DO Oct 25, 2018 15:34
--- NOTE | 2018-10-25 15:34 | PM&R Progress Note ---
Subjective HPI/CC On Admission Date Seen by Provider: Oct 25, 2018 Time Seen by Provider: 15:00 CC: Debility following sacral fracture and subsequent partial paraplegia Pt is a 67 y/o WF w/ hx of Bipolar d/o, expressive aphasia, HTN, and asthma, who is here from [facility] in [place], [place] after recent fall 2/2 vertigo and unsteady gait at her home which resulted in nondisplaced fracture of the left inferior and superior pubic ramus, a sacral fracture with mild displacement of 1 cm, a mild T12 compression fracture, and posterior fracture of right 9th rib. Pt was admitted to ICU at the time and ortho surg was consulted. Pt was stabilized and sent to [facility] at a tertiary higher level care [facility]. Sacroiliac joints were bridged w/ 2 surgical screws. Rates LLE pain 10/10 at this time. Also c/o muscle spasms in RLE. says Flexeril is not helping. Pt currently has a fisher in place, recent CT showed distended bladder, no hematuria. currently No focal deficits. Pt has chronic constipation and is intermittently incontinent of bowels. Had regular bladder function prior to fall. Reports hx of recent falls as well. Prior to this encounter, pt lived alone at home and ambulated using a walker. Pt has a daughter who lives 23 miles away from her and is able to visit her MWF. 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 Pt was discharged from [facility] with the following meds: PERCOCET 5-325MG 1 TAB Q6H PRN CALCIUM +D 500-200 BID DOCUSATE-SENNA 50-8.6MG 2 TABS HS LOVENOX 30MG SUBQ Q12 HOURS X 14 DAYS Pt has seen: PCP Dr. Kaitlynn Martinez Urologist Dr. Harrell (has f/u on 10/29/18) Ortho Dr. Mccullough (has f/u on 10/29/18) Per Brandie Moreno [facility] Chief complaint: Debility following sacral fracture. HPI: This is a 67yoWF clinic Pt of [facility] that I briefly saw two weeks ago when she was admitted over the weekend after suffering a fall and sustaining a sacral fracture. It became unstable so orthopedic surgery recommended transfer to higher level of care to [facility] and I supported that move. She did undergo surgery to repair that by trauma surgery orthopedics and a screw was placed for stability. She is still having significant neurological deficit since that was completed, remains incontinent of stool and neurogenic bladder retention requiring fisher catheter administration. We will work on transfers to a wheelchair. We encourage her to be up in a chair. Next week appointment scheduled with urology and trauma surgery and it will be assessed at that point regarding additional recommendations. Percocet is barely used now, will rely mostly on Tylenol and did not receive any transfusion, Hgb of 8.7 and is not on any antibiotics. Prior level of functioning was independent without the use of assistive devices so will work towards wheelchair mobility since likely the neurological deficit could be permanent. Subjective/Events-last exam Patient having a good day Very motivated to get better Denies any significant issues except for muscle spasms of the right lower extremity so we'll increase baclofen for 5 MG to 10 MG since it does not appear to be causing sedation Motrin 3 times a day seems to be helping her pain a lot more than the Percocet MiraLAX daily will be given Discharge will be to her house or to her daughter's house Updated her on hyponatremia and the need to stop hydrochlorothiazide Sodium level 128 Checked meds and labs Conferred with health and wellness manager therapy notes Review of Systems General: Fatigue Gastrointestinal: Constipation Genitourinary: Retention Neurological: Numbness, Incoordination Objective Exam Vital Signs Vital Signs Date Time Temp Pulse Resp B/P (MAP) Pulse Ox O2 Delivery O2 Flow Rate FiO2 10/25/18 09:00 Room Air 10/25/18 07:49 94 10/25/18 06:10 36.0 80 18 119/69 Capillary Refill : Less Than 3 Seconds General Appearance: No Apparent Distress, WD/WN, Anxious, Chronically ill HEENT: PERRL/EOMI, Normal ENT Inspection, Pharynx Normal Neck: Full Range of Motion, Normal Inspection, Non Tender, Supple Respiratory: Chest Non Tender, Lungs Clear, Normal Breath Sounds, No Accessory Muscle Use, No Respiratory Distress Cardiovascular: Regular Rate, Rhythm, No Edema, No Gallop, No JVD, No Murmur, Normal Peripheral Pulses Gastrointestinal: Normal Bowel Sounds, No Organomegaly, No Pulsatile Mass, Soft Extremity: Normal Capillary Refill, Normal Inspection, Non Tender, No Calf Tenderness, No Pedal Edema, Other (strength right lower leg 1/5, left 1/5) Neurologic/Psychiatric: Alert, Oriented x3, Normal Mood/Affect, fixing carpenter II-XII Norm as Tested, Motor Weakness (lower leg parpalegia) Skin: Normal Color, Warm/Dry Lymphatic: No Adenopathy Results/Procedures Lab Laboratory Tests 10/25/18 05:45 Patient resulted labs reviewed. FIM Transfers Therapy Code Descriptions/Definitions Functional [place] Measure: 0=Not Assessed/NA 4=Minimal Assistance 1=Total Assistance 5=Supervision or Setup 2=Maximal Assistance 6=Modified [place] 3=Moderate Assistance 7=Complete [place] Therapy Quality Codes: 6 Independent with activity with or without an assistive device 5 Patient requires set up or clean up by helper. Patient completes activity by themselves 4 Supervision or touching assist (CGA). Horace provide cues , steadying assist 3 The helper provides less than half the effort to complete the activity 2 The helper provides more than half the effort to complete the activity 1 Dependent. The helper does all the effort to complete an activity 7 Patient refused to complete or attempt activity 9 The patient did not perform the activity before the current illness or injury 88 Not attempted due to Medical conditions or safety concerns Transfers (B, C, W/C) (FIM): 1 Scootin Rollin Roll Left to Right (QC): 1 Supine to/from Sit: 3 Sit to/from Stand: 0 (NWB bilateral LE) Sit to Lying (QC): 1 Sit to Stand (QC): 88 Chair/Zek-af-Jvjsj Xfer(QC): 88 Bed to/from Chair: 3 Car Transfer (QC): 88 Gait Training Does the Patient Walk?: No and Walking Goal NOT indicated Wheelchair Training Does the Pt Use a Wheelchair?: Yes Wheelchair (FIM): 4 Distance: 150' Wheelchair Level of Assist: 4 Type of Wheelchair: Manual Stair Training Stairs (FIM): 0 1 Step (curb) (QC): 88 4 Steps (QC): 88 12 Steps (QC): 88 Balance Picking up an Object (QC): 4 Mental Status/Objective Comprehension: 5 Expression: 4 Social Interaction: 6 Problem Solvin Memory: 3 ADL-Treatment Groomin Oral Hygiene (QC): 6 Bathin Bathing Location: L Arm, R Arm, L Upper Leg, R Upper Leg, Chest, Abdomen, Buttocks, Perineal Area Shower/Bathe Self (QC): 2 Upper Extremity Dressin Upper Body Dressing (QC): 3 Lower Extremity Dressin Lower Body Dressing (QC): 1 On/Off Footwear (QC): 1 Toiletin (Using shower chair with cutout, pt requires assist x2 to manipulate clothing and pt able to cleanse self on seat.) Toileting Hygiene (QC): 1 Toilet/Commode Transfer: 1 (Using shower chair with cutout, pt uses sliding board transfer with assist x2.) Toilet Transfer (QC): 1 Shower: 1 Assessment/Plan Assessment and Plan Assess & Plan/Chief Complaint Assessment: Debility following sacral fracture and spinal cord injury with flaccidity or spasticity of the lower extremities Bipolar Anxiety Urinary retention due to neurogenic bladder Fisher cath Fecal incontinence Anemia Chest pain chronic Muscle spasms Plan: Monitor pain Monitor bowel and bladder Baclofen for muscle spasms and increase the dose IRF protocol (1) Closed fracture of sacrum Status: Acute Qualifiers: Encounter type: subsequent encounter Zone of sacrum fracture: unspecified portion of sacrum Fracture healing: with nonunion Qualified Codes: S32.10XK - Unspecified fracture of sacrum, subsequent encounter for fracture with nonunion (2) Hyponatremia Status: Acute (3) Traumatic retroperitoneal hematoma Status: Acute Qualifiers: Encounter type: subsequent encounter Qualified Codes: S36.892D - Contusion of other intra-abdominal organs, subsequent encounter (4) Sacral fracture, closed Status: Acute (5) Right rib fracture Status: Acute Qualifiers: Encounter type: subsequent encounter Rib fracture type: multiple ribs Fracture type: closed Fracture healing: with routine healing Qualified Codes: S22.41XD - Multiple fractures of ribs, right side, subsequent encounter for fracture with routine healing (6) Rhabdomyolysis Status: Resolved Resolution Date/Time: 10/25/18 @ 06:25 (7) Fall Status: Acute Qualifiers: Encounter type: subsequent encounter Qualified Codes: W19.XXXD - Unspecified fall, subsequent encounter (8) Fisher catheter in place Status: Acute (9) Neurogenic bladder Status: Acute (10) HTN (hypertension) Status: Chronic Qualifiers: Hypertension type: essential hypertension Qualified Codes: I10 - Essential (primary) hypertension (11) Hypothyroidism Status: Chronic Qualifiers: Hypothyroidism type: acquired Qualified Codes: E03.9 - Hypothyroidism, unspecified (12) Anemia Status: Chronic Qualifiers: Anemia type: unspecified type Qualified Codes: D64.9 - Anemia, unspecified (13) Fecal incontinence Status: Acute Qualifiers: Fecal incontinence type: unspecified Qualified Codes: R15.9 - Full incontinence of feces (14) Chest pain Status: Chronic Qualifiers: Chest pain type: unspecified Qualified Codes: R07.9 - Chest pain, unspecified (15) Bipolar 1 disorder Status: Chronic (16) MGUS (monoclonal gammopathy of unknown significance) Status: Chronic (17) COPD (chronic obstructive pulmonary disease) Status: Chronic (18) DVT prophylaxis Status: Acute ARIELA ESPINOZA DO Oct 25, 2018 15:34
--- NOTE | 2018-10-25 16:48 | NUR ---
COAL DUMPING EQUIPMENT OPERATOR met with patient to complete initial assessment. Patient was alert and oriented and agreeable to assessment. Patient admitted to a with multiple fractures following a fall. Patient reports having several previous falls, but never to this severity. Patient currently presents with nonweightbearing status on bilateral lower extremities. Prior to hospitalization patient resided alone in an entry processor apartment in [place], [place]. Patient reports utilizing a Rollator walker at times for ambulation; however, reports independence with all other activities. Patient reports giving up driving approximately 5 years ago due to lack of interest. Primary contact identified as daughter Kevin of [facility] at [phone]. Secondary contacts identified as daughter Christine of [place] at [phone] and son Daniel of [place] at [phone]. Patient reports Werner and Kevin work signal timer; however, Christine does not work and can provide necessary assistance as needed. Patient and Christine have spoke in regards to discharge planning and the option for Christine to reside with patient at discharge. PCP identified as Ben Martinez PTA of [facility] in [place]. Insurance verified as Medicaid [facility] with required insurance updates. Preferred pharmacy listed as [facility]. COAL DUMPING EQUIPMENT OPERATOR reviewed typical ARU length of stay and weekly team conferences. Patient expressed that she was under the impression that ARU would be a 6 week course, COAL DUMPING EQUIPMENT OPERATOR clarified this misunderstanding. COAL DUMPING EQUIPMENT OPERATOR will continue to follow.
[2018-10-25] MEDS: BACLOFEN 10 MG (LIORESAL) TAB PO PRN (17:06)
[2018-10-25 19:02] VITALS: BP 110/73
[2018-10-25] MEDS: MONTELUKAST 10 MG (SINGULAIR) TAB PO SCH (20:53)
[2018-10-25] MEDS: GABAPENTIN 400 MG (NEURONTIN) CAP PO SCH (20:53)
[2018-10-25] MEDS: ISOSORBIDE MONONITRATE 60 MG (IMDUR) TAB PO SCH (20:54)
[2018-10-25] MEDS: SENNA W/DOCUSATE (SENOKOT S) TABLET PO SCH (20:54)
[2018-10-26] MEDS: ZOLPIDEM 5 MG (AMBIEN) TAB PO PRN (00:42)
[2018-10-26] MEDS: oxyCODONE/APAP 5/325MG (PERCOCET 5) TABLET PO PRN ×2 (05:21→18:12)
[2018-10-26] MEDS: PANTOPRAZOLE 40 MG (PROTONIX) TAB PO SCH (06:06)
[2018-10-26] MEDS: CALCIUM CARB + VIT D 600 MG (CALCARB + D) TAB PO SCH ×2 (06:06→18:05)
[2018-10-26] MEDS: VENLAFAXINE 50 MG (EFFEXOR) TABLET PO SCH ×2 (06:06→18:05)
[2018-10-26] MEDS: LEVOTHYROXINE 50 MCG (LEVOTHROID) TAB PO SCH (06:08)
[2018-10-26] MEDS: LINACLOTIDE 290 MCG (LINZESS) CAPSULE PO SCH (06:08)
[2018-10-26 06:32] VITALS: BP 94/55
[2018-10-26] MEDS: RT-ADVAIR HFA 45/21 MCG PER PUFF IH SCH ×2 (07:22→20:05)
--- NOTE | 2018-10-26 08:00 | NUR ---
STATES "PAIN IS GOOD" BUT RATES IT AN "8". VERY PLEASANT. STATES TAILBONE SORE FROM SITTING IN CHAIR YESTERDAY. CAN PULL SELF UP IN BED AND SCOOT FROM SIDE TO SIDE IN BED WHICH SHE STATES JUST STARTED TODAY.
[2018-10-26] MEDS: ESTROGENS CONJUGATED 0.45 MG (PREMARIN) TAB PO SCH (09:23)
[2018-10-26] MEDS: IBUPROFEN 800 MG (MOTRIN) TAB PO SCH ×3 (09:23→20:50)
[2018-10-26] MEDS: OLANZapine 5 MG (ZyPREXA) TAB PO SCH (09:24)
[2018-10-26] MEDS: LORATADINE (CLARITIN) 10 MG TAB PO SCH (09:24)
[2018-10-26] MEDS: busPIRone 10 MG (BUSPAR) TAB PO SCH ×3 (09:24→20:49)
[2018-10-26] MEDS: ENOXAPARIN 30 MG/0.3 ML (LOVENOX) SYR SC SCH ×2 (09:26→20:50)
[2018-10-26] MEDS: POLYETHYLENE GLYCOL 17 GM (MIRALAX) PACK PO SCH ×2 (09:27→19:38)
[2018-10-26] MEDS: FLUTICASONE NASAL SPRAY (FLONASE) 16 GM BTL NS SCH ×2 (09:28→20:52)
[2018-10-26] MEDS: IPRATROPIUM 0.03% NS SCH ×3 (09:29→20:51)
[2018-10-26] MEDS: BACLOFEN 10 MG (LIORESAL) TAB PO PRN (09:35)
--- NOTE | 2018-10-26 10:17 | Occupational Ther Daily Note ---
OT Current Status-Daily Note Subjective No pain reported. Appearance Pt. in bed. Agrees to work with OT. Mental Status/Objective Patient Orientation: Unable to Assess Therapy Code Descriptions/Definitions Functional [place] Measure: 0=Not Assessed/NA 4=Minimal Assistance 1=Total Assistance 5=Supervision or Setup 2=Maximal Assistance 6=Modified [place] 3=Moderate Assistance 7=Complete [place] ADL-Treatment Therapy Code Descriptions/Definitions Functional [place] Measure: 0=Not Assessed/NA 4=Minimal Assistance 1=Total Assistance 5=Supervision or Setup 2=Maximal Assistance 6=Modified [place] 3=Moderate Assistance 7=Complete [place] Therapy Quality Codes: 6 Independent with activity with or without an assistive device 5 Patient requires set up or clean up by helper. Patient completes activity by themselves 4 Supervision or touching assist (CGA). [place] provide cues , steadying assist 3 The helper provides less than half the effort to complete the activity 2 The helper provides more than half the effort to complete the activity 1 Dependent. The helper does all the effort to complete an activity 7 Patient refused to complete or attempt activity 9 The patient did not perform the activity before the current illness or injury 88 Not attempted due to Medical conditions or safety concerns Grooming (FIM): 5 (Set up at bed level to wash face, brush hair, and brush teeth.) Oral Hygiene (QC): 5 Bathing (FIM): 1 Shower/Bathe Self (QC): 1 Toileting (FIM): 1 Toileting Hygiene (QC): 1 Transfers (B, C, W/C) (FIM): 4 (Rolling only in bed.) OT came into room to work with pt. Noted that pt. had been incontinent of bowel in brief, and all over bed. Pt. assisted with rolling while OT cleansed isael area thoroughly, as well as changed bed linens. After this task, bed put into trendelenburg and OT able to pull pt. up in bed. HOB raised and pt. able to complete grooming tasks at this level. All other needs met in room. Education OT Patient Education: Correct positioning, Modified ADL techniques, Progress toward Goal/Update tx plan, Purpose of tx/functional activities, Reviewed precautions, Rehab process, Transfer techniques Teaching Recipient: Patient Teaching Methods: Demonstration, Discussion Response to Teaching: Verbalize Understanding, Return Demonstration OT Short Term Goals Short Term Goals Time Frame: Nov 07, 2018 Eating(FIM): 5 Grooming(FIM): 5 Bathing(FIM): 4 Upper Body Dressing(FIM): 4 Lower Body Dressing(FIM): 3 Toileting(FIM): 3 Transfers (B,C,W/C) (FIM): 3 (slide board bed<>w/c) Toilet/Commode Transfer(FIM): 3 Additional Short Term Goals: 1-Demonstrate ADL Tasks, 2-Verbalize Understanding, 3-ImproveStrength/Abilio 1=Demonstrate adherence to instructed precautions during ADL tasks. 2=Patient will verbalize/demonstrate understanding of assistive devices/modifications for ADL. 3=Patient will improve strength/tolerance for activity to enable patient to perform ADL's. OT Correction Goals Market Development Manager Goals Time Frame: Nov 21, 2018 Eating (FIM): 6 Eating (QC): 6 Groomin Oral Hygiene (QC): 5 Bathing(FIM): 4 Shower/Bathe Self (QC): 4 Upper Body Dressing(FIM): 5 Upper Body Dressing (QC): 5 Lower Body Dressing(FIM): 5 Lower Body Dressing (QC): 5 On/Off Footwear (QC): 5 Toileting(FIM): 5 Toileting Hygiene (QC): 5 Transfers (B,C,W/C) (FIM): 5 Toilet/Commode Transfer(FIM): 5 Toilet/Commode Transfer (QC): 5 Shower Transfer(FIM): 3 Additional Goals: 1-Demonstrate ADL Tasks, 2-Verbalize Understanding, 3- ImproveStrength/Abilio 1=Demonstrate adherence to instructed precautions during ADL tasks. 2=Patient will verbalize/demonstrate understanding of assistive devices/modifications for ADL. 3=Patient will improve strength/tolerance for activity to enable patient to perform ADL's. OT Education/Plan Problem List/Assessment Assessment: Decreased Activ Tolerance, Impaired Bed Mobility, Impaired Cognition, Impaired I ADL's, Impaired Self-Care Skills Discharge Recommendations Plan/Recommendations: Continue POC Treatment Plan/Plan of Care Treatment,Training & Education: Yes Patient would benefit from OT for education, treatment and training to promote independence in ADL's, mobility, safety and/or upper extremity function for ADL's. Plan of Care: ADL Retraining, Functional Mobility, Group Exercise/Act as Ind, UE Funct Exercise/Act Treatment Duration: Nov 21, 2018 Frequency: At least 5 of 7 days/Wk (IRF) Estimated Hrs Per Day: 1.5 hours per day Agreement: Yes Rehab Potential: Fair Time/GCodes Start Time: 08:15 Stop Time: 08:40 Total Time Billed (hr/min): 25 Billed Treatment Time 1, ADL x 2 THOMAS SAHU OT Oct 26, 2018 10:17
--- NOTE | 2018-10-26 11:19 | Physical Therapy Daily Note ---
PT Daily Note-Current Subjective Pt laying Supine in bed upon arrival. Pt agrees to PT. Pain Location: No Pain Reported Mental Status Patient Orientation: Person, Confused, Place Attachments: Blum Catheter Transfers Therapy Code Descriptions/Definitions Functional [place] Measure: 0=Not Assessed/NA 4=Minimal Assistance 1=Total Assistance 5=Supervision or Setup 2=Maximal Assistance 6=Modified [place] 3=Moderate Assistance 7=Complete [place] Therapy Quality Codes: 6 Independent with activity with or without an assistive device 5 Patient requires set up or clean up by helper. Patient completes activity by themselves 4 Supervision or touching assist (CGA). [place] provide cues , steadying assist 3 The helper provides less than half the effort to complete the activity 2 The helper provides more than half the effort to complete the activity 1 Dependent. The helper does all the effort to complete an activity 7 Patient refused to complete or attempt activity 9 The patient did not perform the activity before the current illness or injury 88 Not attempted due to Medical conditions or safety concerns Weight Bearing Right Lower Extremity: Right Non Weight Bearing Left Lower Extremity: Left Non Weight Bearing Exercises Supine Ex: Ankle pumps, Quad Set, Glut sets, Heel Slides, Straight leg raise, Hip abd/add Supine Reps: 15 Treatments Pt completes Supine Ex in bed. Pt rests in bed with all needs met, call light next to pt. Assessment Current Status: Fair Progress Pt needs redirection at times during EX. PT Short Term Goals Short Term Goals Time Frame: Nov 09, 2018 Transfers (B,C,W/C) (FIM): 3 (slide board bed<>w/c) Wheelchair Distance: 150' PT Long-Term Goals Garbage Pick Up Man Goals PT Garbage Pick Up Man Goals Time Frame: Nov 23, 2018 Transfers (B,C,W/C) (FIM): 4 Sit to Lying (QC): 5 Lying-Sitting on Side/Bed(QC): 5 Sit to Stand (QC): 88 Rollin Roll Left to Right (QC): 5 Chair/Dfc-up-Jnefv Xfer(QC): 4 Car Transfer (QC): 4 Does the Patient Walk: No and Walking Goal NOT indicated Does the Pt use WC or Scooter?: Yes Wheelchair (FIM): 2 Wheelchair distance (FIM): 4=883-17 ft Distance: 100' Wheelchair Level of Assist: 4 Wheel 50 feet with 2 turns (QC: 5 Stairs (FIM): 0 1 Step (curb) (QC): 88 4 Steps (QC): 88 12 Steps (QC): 88 Picking up an Object (QC): 5 PT Plan Problem List Problem List: Activity Tolerance, Functional Strength, Safety Treatment/Plan Treatment Plan: Continue Plan of Care Treatment Plan: Bed Mobility, Concurrent Therapy, Education, Functional Activity Abilio, Functional Strength, Group Therapy, Safety, Therapeutic Exerc ise, Transfers Treatment Duration: Nov 23, 2018 Frequency: At least 5 of 7 days/Wk (IRF) Estimated Hrs Per Day: 1.5 hours per day Patient and/or Family Agrees t: Yes Safety Risks/Education Patient Education: Correct Positioning, Safety Issues Teaching Recipient: Patient Teaching Methods: Discussion Response to Teaching: Verbalize Understanding Time/GCodes Time In: 1050 Time Out: 1105 Total Billed Treatment Time: 15 Total Billed Treatment 1, EX (15m) CHA FOOTE VINEYARDIST Oct 26, 2018 11:19
--- NOTE | 2018-10-26 12:25 | PM&R Progress Note ---
Subjective HPI/CC On Admission Date Seen by Provider: Oct 26, 2018 Time Seen by Provider: 11:45 CC: Debility following sacral fracture and subsequent partial paraplegia Pt is a 67 y/o WF w/ hx of Bipolar d/o, expressive aphasia, HTN, and asthma, who is here from [facility] in [place], [place] after recent fall 2/2 vertigo and unsteady gait at her home which resulted in nondisplaced fracture of the left inferior and superior pubic ramus, a sacral fracture with mild displacement of 1 cm, a mild T12 compression fracture, and posterior fracture of right 9th rib. Pt was admitted to ICU at the time and ortho surg was consulted. Pt was stabilized and sent to [facility] at a tertiary higher level care [facility]. Sacroiliac joints were bridged w/ 2 surgical screws. Rates LLE pain 10/10 at this time. Also c/o muscle spasms in RLE. says Flexeril is not helping. Pt currently has a fisher in place, recent CT showed distended bladder, no hematuria. currently No focal deficits. Pt has chronic constipation and is intermittently incontinent of bowels. Had regular bladder function prior to fall. Reports hx of recent falls as well. Prior to this encounter, pt lived alone at home and ambulated using a walker. Pt has a daughter who lives 23 miles away from her and is able to visit her MWF. 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 Pt was discharged from [facility] with the following meds: PERCOCET 5-325MG 1 TAB Q6H PRN CALCIUM +D 500-200 BID DOCUSATE-SENNA 50-8.6MG 2 TABS HS LOVENOX 30MG SUBQ Q12 HOURS X 14 DAYS Pt has seen: PCP Dr. Kaitlynn Martinez Urologist Dr. Harrell (has f/u on 10/29/18) Ortho Dr. Mccullough (has f/u on 10/29/18) Per Brandie Moreno [facility] Chief complaint: Debility following sacral fracture. HPI: This is a 67yoWF clinic Pt of [facility] that I briefly saw two weeks ago when she was admitted over the weekend after suffering a fall and sustaining a sacral fracture. It became unstable so orthopedic surgery recommended transfer to higher level of care to [facility] and I supported that move. She did undergo surgery to repair that by trauma surgery orthopedics and a screw was placed for stability. She is still having significant neurological deficit since that was completed, remains incontinent of stool and neurogenic bladder retention requiring fisher catheter administration. We will work on transfers to a wheelchair. We encourage her to be up in a chair. Next week appointment scheduled with urology and trauma surgery and it will be assessed at that point regarding additional recommendations. Percocet is barely used now, will rely mostly on Tylenol and did not receive any transfusion, Hgb of 8.7 and is not on any antibiotics. Prior level of functioning was independent without the use of assistive devices so will work towards wheelchair mobility since likely the neurological deficit could be permanent. Subjective/Events-last exam Patient having a good day again today Very motivated to get better Denies any significant issues and Baclofen 10mg higher dose is really helping her now Motrin 3 times a day seems to be helping her pain a lot more than the Percocet MiraLAX daily will be given to prevent constipation Discharge will be to her house or to her daughter's house Updated her on hyponatremia and the need to stop hydrochlorothiazide Sodium level 128 Checked meds and labs Conferred with strategy analyst therapy notes Review of Systems General: Fatigue Neurological: Weakness, Numbness, Incoordination Objective Exam Vital Signs Vital Signs Date Time Temp Pulse Resp B/P (MAP) Pulse Ox O2 Delivery O2 Flow Rate FiO2 10/26/18 16:17 35.8 89 14 117/77 96 Room Air Capillary Refill : Less Than 3 Seconds General Appearance: No Apparent Distress, WD/WN, Anxious, Chronically ill HEENT: PERRL/EOMI, Normal ENT Inspection, Pharynx Normal Neck: Full Range of Motion, Normal Inspection, Non Tender, Supple Respiratory: Chest Non Tender, Lungs Clear, Normal Breath Sounds, No Accessory Muscle Use, No Respiratory Distress Cardiovascular: Regular Rate, Rhythm, No Edema, No Gallop, No JVD, No Murmur, Normal Peripheral Pulses Gastrointestinal: Normal Bowel Sounds, No Organomegaly, No Pulsatile Mass, Soft Extremity: Normal Capillary Refill, Normal Inspection, Non Tender, No Calf Tenderness, No Pedal Edema, Other (strength right lower leg 1/5, left 1/5) Neurologic/Psychiatric: Alert, Oriented x3, Normal Mood/Affect, well logging operator mud analysis II-XII Norm as Tested, Motor Weakness (lower leg parpalegia) Skin: Normal Color, Warm/Dry Lymphatic: No Adenopathy Results/Procedures Lab Patient resulted labs reviewed. FIM Transfers Therapy Code Descriptions/Definitions Functional Jenkins Measure: 0=Not Assessed/NA 4=Minimal Assistance 1=Total Assistance 5=Supervision or Setup 2=Maximal Assistance 6=Modified Jenkins 3=Moderate Assistance 7=Complete Jenkins Therapy Quality Codes: 6 Independent with activity with or without an assistive device 5 Patient requires set up or clean up by helper. Patient completes activity by themselves 4 Supervision or touching assist (CGA). [place] provide cues , steadying assist 3 The helper provides less than half the effort to complete the activity 2 The helper provides more than half the effort to complete the activity 1 Dependent. The helper does all the effort to complete an activity 7 Patient refused to complete or attempt activity 9 The patient did not perform the activity before the current illness or injury 88 Not attempted due to Medical conditions or safety concerns Transfers (B, C, W/C) (FIM): 4 (Rolling only in bed.) Scootin Rollin Roll Left to Right (QC): 1 Supine to/from Sit: 3 Sit to/from Stand: 0 (NWB bilateral LE) Sit to Lying (QC): 1 Sit to Stand (QC): 88 Chair/[id number]-[id number] Xfer(QC): 88 Bed to/from Chair: 3 Car Transfer (QC): 88 Gait Training Does the Patient Walk?: No and Walking Goal NOT indicated Wheelchair Training Does the Pt Use a Wheelchair?: Yes Wheelchair (FIM): 4 Distance: 150' Wheelchair Level of Assist: 4 Type of Wheelchair: Manual Stair Training Stairs (FIM): 0 1 Step (curb) (QC): 88 4 Steps (QC): 88 12 Steps (QC): 88 Balance Picking up an Object (QC): 4 Mental Status/Objective Comprehension: 5 Expression: 4 Social Interaction: 6 Problem Solvin Memory: 3 ADL-Treatment Groomin (Set up at bed level to wash face, brush hair, and brush teeth.) Oral Hygiene (QC): 5 Bathin Bathing Location: L Arm, R Arm, L Upper Leg, R Upper Leg, Chest, Abdomen, Butt ocks, Perineal Area Shower/Bathe Self (QC): 1 Upper Extremity Dressin Upper Body Dressing (QC): 3 Lower Extremity Dressin Lower Body Dressing (QC): 1 On/Off Footwear (QC): 1 Toiletin Toileting Hygiene (QC): 1 Toilet/Commode Transfer: 1 (Using shower chair with cutout, pt uses sliding board transfer with assist x2.) Toilet Transfer (QC): 1 Shower: 1 Assessment/Plan Assessment and Plan Assess & Plan/Chief Complaint Assessment: Debility following sacral fracture and spinal cord injury with flaccidity or spasticity of the lower extremities Bipolar Anxiety Urinary retention due to neurogenic bladder Fisher cath Fecal incontinence Anemia Chest pain chronic Muscle spasms Plan: Monitor pain Monitor bowel and bladder Baclofen for muscle spasms and increase the dose IRF protocol (1) Closed fracture of sacrum Status: Acute Qualifiers: Encounter type: subsequent encounter Zone of sacrum fracture: unspecified portion of sacrum Fracture healing: with nonunion Qualified Codes: S32.10XK - Unspecified fracture of sacrum, subsequent encounter for fracture with nonunion (2) Hyponatremia Status: Acute (3) Traumatic retroperitoneal hematoma Status: Acute Qualifiers: Encounter type: subsequent encounter Qualified Codes: S36.892D - Contusion of other intra-abdominal organs, subsequent encounter (4) Sacral fracture, closed Status: Acute (5) Right rib fracture Status: Acute Qualifiers: Encounter type: subsequent encounter Rib fracture type: multiple ribs Fracture type: closed Fracture healing: with routine healing Qualified Codes: S22.41XD - Multiple fractures of ribs, right side, subsequent encounter for fracture with routine healing (6) Rhabdomyolysis Status: Resolved Resolution Date/Time: 10/25/18 @ 06:25 (7) Fall Status: Acute Qualifiers: Encounter type: subsequent encounter Qualified Codes: W19.XXXD - Unspecified fall, subsequent encounter (8) Fisher catheter in place Status: Acute (9) Neurogenic bladder Status: Acute (10) HTN (hypertension) Status: Chronic Qualifiers: Hypertension type: essential hypertension Qualified Codes: I10 - Essential (primary) hypertension (11) Hypothyroidism Status: Chronic Qualifiers: Hypothyroidism type: acquired Qualified Codes: E03.9 - Hypothyroidism, unspecified (12) Anemia Status: Chronic Qualifiers: Anemia type: unspecified type Qualified Codes: D64.9 - Anemia, unspecified (13) Fecal incontinence Status: Acute Qualifiers: Fecal incontinence type: unspecified Qualified Codes: R15.9 - Full incontinence of feces (14) Chest pain Status: Chronic Qualifiers: Chest pain type: unspecified Qualified Codes: R07.9 - Chest pain, unspecified (15) Bipolar 1 disorder Status: Chronic (16) MGUS (monoclonal gammopathy of unknown significance) Status: Chronic (17) COPD (chronic obstructive pulmonary disease) Status: Chronic (18) DVT prophylaxis Status: Acute ARIELA ESPINOZA DO Oct 26, 2018 12:25
[2018-10-26 16:17] VITALS: BP 117/77
--- NOTE | 2018-10-26 18:00 | NUR ---
STILL COMPLAINING OF "TAILBONE" PAIN. ALLEVYN PUT ON LOWER SACRUM.
[2018-10-26] MEDS: SENNA W/DOCUSATE (SENOKOT S) TABLET PO SCH (20:40)
[2018-10-26] MEDS: GABAPENTIN 400 MG (NEURONTIN) CAP PO SCH (20:49)
[2018-10-26] MEDS: MONTELUKAST 10 MG (SINGULAIR) TAB PO SCH (20:49)
[2018-10-26] MEDS: ISOSORBIDE MONONITRATE 60 MG (IMDUR) TAB PO SCH (20:50)
[2018-10-27 05:46] VITALS: BP 96/60
[2018-10-27] MEDS: oxyCODONE/APAP 5/325MG (PERCOCET 5) TABLET PO PRN ×3 (06:14→23:01)
[2018-10-27] MEDS: CALCIUM CARB + VIT D 600 MG (CALCARB + D) TAB PO SCH ×2 (06:14→16:07)
[2018-10-27] MEDS: LEVOTHYROXINE 50 MCG (LEVOTHROID) TAB PO SCH (06:14)
[2018-10-27] MEDS: BACLOFEN 10 MG (LIORESAL) TAB PO PRN ×2 (06:14→23:01)
[2018-10-27] MEDS: PANTOPRAZOLE 40 MG (PROTONIX) TAB PO SCH (06:15)
[2018-10-27] MEDS: VENLAFAXINE 50 MG (EFFEXOR) TABLET PO SCH ×2 (06:15→16:07)
[2018-10-27] MEDS: LINACLOTIDE 290 MCG (LINZESS) CAPSULE PO SCH (06:17)
[2018-10-27] MEDS: RT-ADVAIR HFA 45/21 MCG PER PUFF IH SCH ×2 (07:56→19:03)
[2018-10-27] MEDS: OLANZapine 5 MG (ZyPREXA) TAB PO SCH (08:43)
[2018-10-27] MEDS: ESTROGENS CONJUGATED 0.45 MG (PREMARIN) TAB PO SCH (08:43)
[2018-10-27] MEDS: IBUPROFEN 800 MG (MOTRIN) TAB PO SCH ×3 (08:44→20:22)
[2018-10-27] MEDS: LORATADINE (CLARITIN) 10 MG TAB PO SCH (08:44)
[2018-10-27] MEDS: POLYETHYLENE GLYCOL 17 GM (MIRALAX) PACK PO SCH ×2 (08:45→19:16)
[2018-10-27] MEDS: ENOXAPARIN 30 MG/0.3 ML (LOVENOX) SYR SC SCH ×2 (08:45→20:23)
[2018-10-27] MEDS: busPIRone 10 MG (BUSPAR) TAB PO SCH ×3 (08:45→20:22)
[2018-10-27] MEDS: IPRATROPIUM 0.03% NS SCH ×3 (08:48→20:23)
[2018-10-27] MEDS: FLUTICASONE NASAL SPRAY (FLONASE) 16 GM BTL NS SCH ×2 (08:48→20:23)
--- NOTE | 2018-10-27 14:06 | PM&R Progress Note ---
Subjective HPI/CC On Admission Date Seen by Provider: Oct 27, 2018 Time Seen by Provider: 13:00 CC: Debility following sacral fracture and subsequent partial paraplegia Pt is a 67 y/o WF w/ hx of Bipolar d/o, expressive aphasia, HTN, and asthma, who is here from [facility] in [place], [place] after recent fall 2/2 vertigo and unsteady gait at her home which resulted in nondisplaced fracture of the left inferior and superior pubic ramus, a sacral fracture with mild displacement of 1 cm, a mild T12 compression fracture, and posterior fracture of right 9th rib. Pt was admitted to ICU at the time and ortho surg was consulted. Pt was stabilized and sent to [facility] at a tertiary higher level care [facility]. Sacroiliac joints were bridged w/ 2 surgical screws. Rates LLE pain 10/10 at this time. Also c/o muscle spasms in RLE. says Flexeril is not helping. Pt currently has a fisher in place, recent CT showed distended bladder, no hematuria. currently No focal deficits. Pt has chronic constipation and is intermittently incontinent of bowels. Had regular bladder function prior to fall. Reports hx of recent falls as well. Prior to this encounter, pt lived alone at home and ambulated using a walker. Pt has a daughter who lives 23 miles away from her and is able to visit her MWF. 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 Pt was discharged from [facility] with the following meds: PERCOCET 5-325MG 1 TAB Q6H PRN CALCIUM +D 500-200 BID DOCUSATE-SENNA 50-8.6MG 2 TABS HS LOVENOX 30MG SUBQ Q12 HOURS X 14 DAYS Pt has seen: PCP Dr. Kaitlynn Martinez Urologist Dr. Harrell (has f/u on 10/29/18) Ortho Dr. Mccullough (has f/u on 10/29/18) Per Brandie Moreno [facility] Chief complaint: Debility following sacral fracture. HPI: This is a 67yoWF clinic Pt of [facility] that I briefly saw two weeks ago when she was admitted over the weekend after suffering a fall and sustaining a sacral fracture. It became unstable so orthopedic surgery recommended transfer to higher level of care to [facility] and I supported that move. She did undergo surgery to repair that by trauma surgery orthopedics and a screw was placed for stability. She is still having significant neurological deficit since that was completed, remains incontinent of stool and neurogenic bladder retention requiring fisher catheter administration. We will work on transfers to a wheelchair. We encourage her to be up in a chair. Next week appointment scheduled with urology and trauma surgery and it will be assessed at that point regarding additional recommendations. Percocet is barely used now, will rely mostly on Tylenol and did not receive any transfusion, Hgb of 8.7 and is not on any antibiotics. Prior level of functioning was independent without the use of assistive devices so will work towards wheelchair mobility since likely the neurological deficit could be permanent. Subjective/Events-last exam Patient having a good day again today Very motivated to get better Denies any significant issues and Baclofen 10mg higher dose is really helping her now so will maintain that Motrin 3 times a day seems to be helping her pain a lot more than the Percocet but will monitor liver and kidney function closely MiraLAX daily will be given to prevent constipation Discharge will be to her house or to her daughter's house Updated her on hyponatremia and the need to stop hydrochlorothiazide Sodium level 128, checking labs in morning Fisher cath in place Checked meds and labs Conferred with artists' model therapy notes Review of Systems General: Fatigue Gastrointestinal: Diarrhea Genitourinary: Retention Neurological: Weakness, Numbness, Incoordination Objective Exam Vital Signs Vital Signs Date Time Temp Pulse Resp B/P (MAP) Pulse Ox O2 Delivery O2 Flow Rate FiO2 10/27/18 16:04 36.5 75 16 102/68 96 Room Air Capillary Refill : Less Than 3 Seconds General Appearance: No Apparent Distress, WD/WN, Anxious, Chronically ill HEENT: PERRL/EOMI, Normal ENT Inspection, Pharynx Normal Neck: Full Range of Motion, Normal Inspection, Non Tender, Supple Respiratory: Chest Non Tender, Lungs Clear, Normal Breath Sounds, No Accessory Muscle Use, No Respiratory Distress Cardiovascular: Regular Rate, Rhythm, No Edema, No Gallop, No JVD, No Murmur, Normal Peripheral Pulses Gastrointestinal: Normal Bowel Sounds, No Organomegaly, No Pulsatile Mass, Soft Extremity: Normal Capillary Refill, Normal Inspection, Non Tender, No Calf Tenderness, No Pedal Edema, Other (strength right lower leg 1/5, left 1/5) Neurologic/Psychiatric: Alert, Oriented x3, Normal Mood/Affect, rackman II-XII Norm as Tested, Motor Weakness (lower leg parpalegia) Skin: Normal Color, Warm/Dry Lymphatic: No Adenopathy Results/Procedures Lab Patient resulted labs reviewed. FIM Transfers Therapy Code Descriptions/Definitions Functional Henry Measure: 0=Not Assessed/NA 4=Minimal Assistance 1=Total Assistance 5=Supervision or Setup 2=Maximal Assistance 6=Modified Henry 3=Moderate Assistance 7=Complete Henry Therapy Quality Codes: 6 Independent with activity with or without an assistive device 5 Patient requires set up or clean up by helper. Patient completes activity by themselves 4 Supervision or touching assist (CGA). [place] provide cues , steadying assist 3 The helper provides less than half the effort to complete the activity 2 The helper provides more than half the effort to complete the activity 1 Dependent. The helper does all the effort to complete an activity 7 Patient refused to complete or attempt activity 9 The patient did not perform the activity before the current illness or injury 88 Not attempted due to Medical conditions or safety concerns Transfers (B, C, W/C) (FIM): 4 (Rolling only in bed.) Scootin Rollin Roll Left to Right (QC): 1 Supine to/from Sit: 3 Sit to/from Stand: 0 (NWB bilateral LE) Sit to Lying (QC): 1 Sit to Stand (QC): 88 Chair/Gsz-ed-Fylgp Xfer(QC): 88 Bed to/from Chair: 3 Car Transfer (QC): 88 Gait Training Does the Patient Walk?: No and Walking Goal NOT indicated Wheelchair Training Does the Pt Use a Wheelchair?: Yes Wheelchair (FIM): 4 Distance: 150' Wheelchair Level of Assist: 4 Type of Wheelchair: Manual Stair Training Stairs (FIM): 0 1 Step (curb) (QC): 88 4 Steps (QC): 88 12 Steps (QC): 88 Balance Picking up an Object (QC): 4 Mental Status/Objective Comprehension: 5 Expression: 4 Social Interaction: 6 Problem Solvin Memory: 3 ADL-Treatment Groomin (Set up at bed level to wash face, brush hair, and brush teeth.) Oral Hygiene (QC): 5 Bathin Bathing Location: L Arm, R Arm, L Upper Leg, R Upper Leg, Chest, Abdomen, Buttocks, Perineal Area Shower/Bathe Self (QC): 1 Upper Extremity Dressin Upper Body Dressing (QC): 3 Lower Extremity Dressin Lower Body Dressing (QC): 1 On/Off Footwear (QC): 1 Toiletin Toileting Hygiene (QC): 1 Toilet/Commode Transfer: 1 (Using shower chair with cutout, pt uses sliding board transfer with assist x2.) Toilet Transfer (QC): 1 Shower: 1 Assessment/Plan Assessment and Plan Assess & Plan/Chief Complaint Assessment: Debility following sacral fracture and spinal cord injury with flaccidity or spasticity of the lower extremities Bipolar Anxiety Urinary retention due to neurogenic bladder Fisher cath likely will need in/out caths versus SP catheter Fecal incontinence Anemia Chest pain chronic Muscle spasms Plan: Monitor pain Monitor bowel and bladder Baclofen for muscle spasms and increase the dose IRF protocol Fisher cath maintained (1) Closed fracture of sacrum Status: Acute Qualifiers: Encounter type: subsequent encounter Zone of sacrum fracture: unspecified portion of sacrum Fracture healing: with nonunion Qualified Codes: S32.10XK - Unspecified fracture of sacrum, subsequent encounter for fracture with nonunion (2) Hyponatremia Status: Acute (3) Traumatic retroperitoneal hematoma Status: Acute Qualifiers: Encounter type: subsequent encounter Qualified Codes: S36.892D - Contusion of other intra-abdominal organs, subsequent encounter (4) Sacral fracture, closed Status: Acute (5) Right rib fracture Status: Acute Qualifiers: Encounter type: subsequent encounter Rib fracture type: multiple ribs Fracture type: closed Fracture healing: with routine healing Qualified Codes: S22.41XD - Multiple fractures of ribs, right side, subsequent encounter for fracture with routine healing (6) Rhabdomyolysis Status: Resolved Resolution Date/Time: 10/25/18 @ 06:25 (7) Fall Status: Acute Qualifiers: Encounter type: subsequent encounter Qualified Codes: W19.XXXD - Unspecified fall, subsequent encounter (8) Fisher catheter in place Status: Acute (9) Neurogenic bladder Status: Acute (10) HTN (hypertension) Status: Chronic Qualifiers: Hypertension type: essential hypertension Qualified Codes: I10 - Essential (primary) hypertension (11) Hypothyroidism Status: Chronic Qualifiers: Hypothyroidism type: acquired Qualified Codes: E03.9 - Hypothyroidism, unspecified (12) Anemia Status: Chronic Qualifiers: Anemia type: unspecified type Qualified Codes: D64.9 - Anemia, unspecified (13) Fecal incontinence Status: Acute Qualifiers: Fecal incontinence type: unspecified Qualified Codes: R15.9 - Full incontinence of feces (14) Chest pain Status: Chronic Qualifiers: Chest pain type: unspecified Qualified Codes: R07.9 - Chest pain, unspecified (15) Bipolar 1 disorder Status: Chronic (16) MGUS (monoclonal gammopathy of unknown significance) Status: Chronic (17) COPD (chronic obstructive pulmonary disease) Status: Chronic (18) DVT prophylaxis Status: Acute ARIELA ESPINOZA DO Oct 27, 2018 14:06
[2018-10-27 16:04] VITALS: BP 102/68
[2018-10-27] MEDS: SENNA W/DOCUSATE (SENOKOT S) TABLET PO SCH (19:17)
[2018-10-27] MEDS: GABAPENTIN 400 MG (NEURONTIN) CAP PO SCH (20:22)
[2018-10-27] MEDS: ISOSORBIDE MONONITRATE 60 MG (IMDUR) TAB PO SCH (20:22)
[2018-10-27] MEDS: MONTELUKAST 10 MG (SINGULAIR) TAB PO SCH (20:22)
[2018-10-27] MEDS: ZOLPIDEM 5 MG (AMBIEN) TAB PO PRN (23:01)
[2018-10-28 05:27] LABS: BASOPHILS # (AUTO) 0.1 10^3/uL (0.0-0.1); BASOPHILS % (AUTO) 1 % (0-10); EOSINOPHILS # (AUTO) 0.3 10^3/uL (0.0-0.3); EOSINOPHILS % (AUTO) 4 % (0-10); HEMATOCRIT 26 % (35-52); HEMOGLOBIN 8.1 G/DL (11.5-16.0); LYMPHOCYTES # (AUTO) 2.7 X 10^3 (1.0-4.0); LYMPHOCYTES % (AUTO) 43 % (12-44); MEAN CORPUSCULAR HEMOGLOBIN 33 PG (25-34); MEAN CORPUSCULAR HGB CONC 32 G/DL (32-36); MEAN CORPUSCULAR VOLUME 104 FL (80-99); MEAN PLATELET VOLUME 8.3 FL (7.4-10.4); MONOCYTES # (AUTO) 0.5 X 10^3 (0.0-1.0); MONOCYTES % (AUTO) 8 % (0-12); NEUTROPHILS # (AUTO) 2.7 X 10^3 (1.8-7.8); NEUTROPHILS % (AUTO) 44 % (42-75); PLATELET COUNT 517 10^3/uL (130-400); RED CELL DISTRIBUTION WIDTH 14.9 % (10.0-14.5); WHITE BLOOD COUNT 6.2 10^3/uL (4.3-11.0)
[2018-10-28 05:50] VITALS: BP 106/67
[2018-10-28] MEDS: CALCIUM CARB + VIT D 600 MG (CALCARB + D) TAB PO SCH ×2 (06:00→17:03)
[2018-10-28] MEDS: VENLAFAXINE 50 MG (EFFEXOR) TABLET PO SCH ×2 (06:01→17:03)
[2018-10-28] MEDS: oxyCODONE/APAP 5/325MG (PERCOCET 5) TABLET PO PRN ×3 (06:01→17:59)
[2018-10-28] MEDS: LEVOTHYROXINE 50 MCG (LEVOTHROID) TAB PO SCH (06:01)
[2018-10-28] MEDS: LINACLOTIDE 290 MCG (LINZESS) CAPSULE PO SCH (06:02)
[2018-10-28 06:04] LABS: ALANINE AMINOTRANSFERASE 21 U/L (0-55); ALBUMIN 2.6 GM/DL (3.2-4.5); ALKALINE PHOSPHATASE 168 U/L (40-136); BILIRUBIN,TOTAL 0.3 MG/DL (0.1-1.0); BUN/CREATININE RATIO 22; CALCIUM 8.9 MG/DL (8.5-10.1); CARBON DIOXIDE 26 MMOL/L (21-32); CHLORIDE 98 MMOL/L (98-107); CREATININE SERUM 0.77 MG/DL (0.60-1.30); GFR ESTIMATED > 60; GLUCOSE 89 MG/DL (70-105); POTASSIUM 4.1 MMOL/L (3.6-5.0); SODIUM 134 MMOL/L (135-145); TOTAL PROTEIN 7.5 GM/DL (6.4-8.2)
[2018-10-28] MEDS: PANTOPRAZOLE 40 MG (PROTONIX) TAB PO SCH (06:36)
[2018-10-28] MEDS: DICLOFENAC 1% GEL 100 GM (VOLTAREN) TUBE TOP PRN (07:35)
[2018-10-28] MEDS: RT-ADVAIR HFA 45/21 MCG PER PUFF IH SCH ×2 (07:57→19:05)
--- NOTE | 2018-10-28 08:05 | Occupational Ther Daily Note ---
OT Current Status-Daily Note Subjective Pt alert and in bed upon OT arrival. Pt stated she felt her brain was going 90 to nothing. Pt needs constant reassurance throughout entire therapy session. Mental Status/Objective Patient Orientation: Person, Place, Situation Therapy Code Descriptions/Definitions Functional [place] Measure: 0=Not Assessed/NA 4=Minimal Assistance 1=Total Assistance 5=Supervision or Setup 2=Maximal Assistance 6=Modified [place] 3=Moderate Assistance 7=Complete [place] ADL-Treatment Pt is anxious throughout session. Repeated vc for reminder not to wt bear on LE's. Pt wanted to shower and then changed her mind. Pt wanted to sponge bathe today and shower tomorrow. Pt performed sponge bath sitting EOB. Pt needed VC's to wash body parts. Pt educated in lower body dressing technique of leaning side to side. Pt required VC's to hike up hips when leaning to get briefs over hips. Pt educated on sock aid. Pt able to complete L sock by self. Pt required VC's to complete R sock. Therapy Code Descriptions/Definitions Functional [place] Measure: 0=Not Assessed/NA 4=Minimal Assistance 1=Total Assistance 5=Supervision or Setup 2=Maximal Assistance 6=Modified [place] 3=Moderate Assistance 7=Complete [place] Therapy Quality Codes: 6 Independent with activity with or without an assistive device 5 Patient requires set up or clean up by helper. Patient completes activity by themselves 4 Supervision or touching assist (CGA). [place] provide cues , steadying assist 3 The helper provides less than half the effort to complete the activity 2 The helper provides more than half the effort to complete the activity 1 Dependent. The helper does all the effort to complete an activity 7 Patient refused to complete or attempt activity 9 The patient did not perform the activity before the current illness or in jury 88 Not attempted due to Medical conditions or safety concerns Grooming (FIM): 6 (Pt brushed teeth and hair sitting in w/c at sink. ) Oral Hygiene (QC): 6 Upper Body (FIM): 5 (Pt able to doff hospital gown sitting EOB. Pt able to don night gown by self. Set up.) Upper Body Dressing (QC): 5 Lower Body Dressing (FIM): 4 (Pt requireid VC's to lean side to side. Pt needs VC's to hike legs up when leaning. 1 touching assist to show pt can lift leg when leaning side to side.) Lower Body Dressing (QC): 3 Transfers (B, C, W/C) (FIM): 4 (Pt requires assist to place sliding board. Pt needed VC's to hike up so sliding board can be placed properly. CGA assist while pt is using sliding board. ) Other Treatment Pt sitting in w/c. Call light and phone in reach. Pts needs met. RT in room. Education OT Patient Education: Modified ADL techniques, Use of adapted equipment Teaching Recipient: Patient Teaching Methods: Demonstration Response to Teaching: Verbalize Understanding, Reinforcement Needed OT Short Term Goals Short Term Goals Time Frame: Nov 07, 2018 Eating(FIM): 5 Grooming(FIM): 5 Bathing(FIM): 4 Upper Body Dressing(FIM): 4 Lower Body Dressing(FIM): 3 Toileting(FIM): 3 Transfers (B,C,W/C) (FIM): 3 (slide board bed<>w/c) Toilet/Commode Transfer(FIM): 3 Additional Short Term Goals: 1-Demonstrate ADL Tasks, 2-Verbalize Understanding, 3-ImproveStrength/Abilio 1=Demonstrate adherence to instructed precautions during ADL tasks. 2=Patient will verbalize/demonstrate understanding of assistive devices/modifications for ADL. 3=Patient will improve strength/tolerance for activity to enable patient to perform ADL's. OT [facility] Goals Neck Fitter Goals Time Frame: Nov 21, 2018 Eating (FIM): 6 Eating (QC): 6 Groomin Oral Hygiene (QC): 5 Bathing(FIM): 4 Shower/Bathe Self (QC): 4 Upper Body Dressing(FIM): 5 Upper Body Dressing (QC): 5 Lower Body Dressing(FIM): 5 Lower Body Dressing (QC): 5 On/Off Footwear (QC): 5 Toileting(FIM): 5 Toileting Hygiene (QC): 5 Transfers (B,C,W/C) (FIM): 5 Toilet/Commode Transfer(FIM): 5 Toilet/Commode Transfer (QC): 5 Shower Transfer(FIM): 3 Additional Goals: 1-Demonstrate ADL Tasks, 2-Verbalize Understanding, 3- ImproveStrength/Abilio 1=Demonstrate adherence to instructed precautions during ADL tasks. 2=Patient will verbalize/demonstrate understanding of assistive devices/modifications for ADL. 3=Patient will improve strength/tolerance for activity to enable patient to perform ADL's. OT Education/Plan Problem List/Assessment Assessment: Decreased UE Strength, Impaired Self-Care Skills Discharge Recommendations Plan/Recommendations: Continue POC Treatment Plan/Plan of Care Patient would benefit from OT for education, treatment and training to promote independence in ADL's, mobility, safety and/or upper extremity function for ADL's. Plan of Care: ADL Retraining, Functional Mobility, Group Exercise/Act as Ind, UE Funct Exercise/Act Treatment Duration: Nov 21, 2018 Frequency: At least 5 of 7 days/Wk (IRF) Estimated Hrs Per Day: 1.5 hours per day Agreement: Yes Rehab Potential: Fair Time/GCodes Start Time: 07:00 Stop Time: 08:00 Total Time Billed (hr/min): 60 Billed Treatment Time 1 visit- ADL 4 (60 min) NATE PROCTOR Oct 28, 2018 08:05
--- NOTE | 2018-10-28 08:23 | PM&R Progress Note ---
Subjective HPI/CC On Admission Date Seen by Provider: Oct 28, 2018 Time Seen by Provider: 08:30 CC: Debility following sacral fracture and subsequent partial paraplegia Pt is a 67 y/o WF w/ hx of Bipolar d/o, expressive aphasia, HTN, and asthma, who is here from [facility] in [place], [place] after recent fall 2/2 vertigo and unsteady gait at her home which resulted in nondisplaced fracture of the left inferior and superior pubic ramus, a sacral fracture with mild displacement of 1 cm, a mild T12 compression fracture, and posterior fracture of right 9th rib. Pt was admitted to ICU at the time and ortho surg was consulted. Pt was stabilized and sent to [facility] a tertiary [facility]. Sacroiliac joints were bridged w/ 2 surgical screws. Rates LLE pain 10/10 at this time. Also c/o muscle spasms in RLE. says Flexeril is not helping. Pt currently has a fisher in place, recent CT showed distended bladder, no hematuria. currently No focal deficits. Pt has chronic constipation and is intermittently incontinent of bowels. Had regular bladder function prior to fall. Reports hx of recent falls as well. Prior to this encounter, pt lived alone at home and ambulated using a walker. Pt has a daughter who lives 23 miles away from her and is able to visit her MWF. 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 Pt was discharged from [facility] with the following meds: PERCOCET 5-325MG 1 TAB Q6H PRN CALCIUM +D 500-200 BID DOCUSATE-SENNA 50-8.6MG 2 TABS HS LOVENOX 30MG SUBQ Q12 HOURS X 14 DAYS Pt has seen: PCP Dr. Kaitlynn Martinez Urologist Dr. Harrell (has f/u on 10/29/18) Ortho Dr. Mccullough (has f/u on 10/29/18) Per Brandie Moreno [facility] Chief complaint: Debility following sacral fracture. HPI: This is a 67yoWF clinic Pt of [facility] that I briefly saw two weeks ago when she was admitted over the weekend after suffering a fall and sustaining a sacral fracture. It became unstable so orthopedic surgery recommended transfer to higher level of care to [facility] and I supported that move. She did undergo surgery to repair that by trauma surgery orthopedics and a screw was placed for stability. She is still having significant neurological deficit since that was completed, remains incontinent of stool and neurogenic bladder retention requiring fisher catheter administration. We will work on transfers to a wheelchair. We encourage her to be up in a chair. Next week appointment scheduled with urology and trauma surgery and it will be assessed at that point regarding additional recommendations. Percocet is barely used now, will rely mostly on Tylenol and did not receive any transfusion, Hgb of 8.7 and is not on any antibiotics. Prior level of functioning was independent without the use of assistive devices so will work towards wheelchair mobility since likely the neurological deficit could be permanent. Subjective/Events-last exam Sodium level increased form 128 to 134 since Hydrochlorothiazide discontinued Hgb remains stable at 8.1 Loose stools so holding laxatives Voltaren Gel helpful for back pain Overall very motivated Daughter at the bedside Checked meds and labs Conferred with psychological stress evaluator therapy notes Review of Systems Musculoskeletal: leg pain Neurological: Weakness, Numbness, Incoordination Objective Exam Vital Signs Vital Signs Date Time Temp Pulse Resp B/P (MAP) Pulse Ox O2 Delivery O2 Flow Rate FiO2 10/28/18 20:07 83 102/62 10/28/18 19:05 94 Room Air 10/28/18 15:44 36.2 16 Capillary Refill : Less Than 3 Seconds General Appearance: No Apparent Distress, WD/WN, Anxious, Chronically ill HEENT: PERRL/EOMI, Normal ENT Inspection, Pharynx Normal Neck: Full Range of Motion, Normal Inspection, Non Tender, Supple Respiratory: Chest Non Tender, Lungs Clear, Normal Breath Sounds, No Accessory Muscle Use, No Respiratory Distress Cardiovascular: Regular Rate, Rhythm, No Edema, No Gallop, No JVD, No Murmur, Normal Peripheral Pulses Gastrointestinal: Normal Bowel Sounds, No Organomegaly, No Pulsatile Mass, Soft Extremity: Normal Capillary Refill, Normal Inspection, Non Tender, No Calf Tenderness, No Pedal Edema, Other (strength right lower leg 1/5, left 1/5) Neurologic/Psychiatric: Alert, Oriented x3, Normal Mood/Affect, quarter doper II-XII Norm as Tested, Motor Weakness (lower leg parpalegia) Skin: Normal Color, Warm/Dry Lymphatic: No Adenopathy Results/Procedures Lab Laboratory Tests 10/28/18 05:16 Patient resulted labs reviewed. FIM Transfers Therapy Code Descriptions/Definitions Functional [place] Measure: 0=Not Assessed/NA 4=Minimal Assistance 1=Total Assistance 5=Supervision or Setup 2=Maximal Assistance 6=Modified [place] 3=Moderate Assistance 7=Complete [place] Therapy Quality Codes: 6 Independent with activity with or without an assistive device 5 Patient requires set up or clean up by helper. Patient completes activity by themselves 4 Supervision or touching assist (CGA). [place] provide cues , steadying assist 3 The helper provides less than half the effort to complete the activity 2 The helper provides more than half the effort to complete the activity 1 Dependent. The helper does all the effort to complete an activity 7 Patient refused to complete or attempt activity 9 The patient did not perform the activity before the current illness or injury 88 Not attempted due to Medical conditions or safety concerns Transfers (B, C, W/C) (FIM): 4 (Pt requires assist to place sliding board. Pt needed VC's to hike up so sliding board can be placed properly. CGA assist while pt is using sliding board. ) Scootin Rollin Roll Left to Right (QC): 1 Supine to/from Sit: 3 Sit to/from Stand: 0 (NWB bilateral LE) Sit to Lying (QC): 1 Sit to Stand (QC): 88 Chair/[id number]-[id number] Xfer(QC): 88 Bed to/from Chair: 3 Car Transfer (QC): 88 Gait Training Does the Patient Walk?: No and Walking Goal NOT indicated Wheelchair Training Does the Pt Use a Wheelchair?: Yes Wheelchair (FIM): 4 Distance: 150' Wheelchair Level of Assist: 4 Type of Wheelchair: Manual Stair Training Stairs (FIM): 0 1 Step (curb) (QC): 88 4 Steps (QC): 88 12 Steps (QC): 88 Balance Picking up an Object (QC): 4 Mental Status/Objective Comprehension: 5 Expression: 4 Social Interaction: 6 Problem Solvin Memory: 3 ADL-Treatment Groomin (Pt brushed teeth and hair sitting in w/c at sink. ) Oral Hygiene (QC): 6 Bathin Bathing Location: L Arm, R Arm, L Upper Leg, R Upper Leg, Chest, Abdomen, Buttocks, Perineal Area Shower/Bathe Self (QC): 1 Upper Extremity Dressin (Pt able to doff hospital gown sitting EOB. Pt able to don night gown by self. Set up.) Upper Body Dressing (QC): 5 Lower Extremity Dressin (Pt requireid VC's to lean side to side. Pt needs VC's to hike legs up when leaning. 1 touching assist to show pt can lift leg when leaning side to side.) Lower Body Dressing (QC): 3 On/Off Footwear (QC): 1 Toiletin Toileting Hygiene (QC): 1 Toilet/Commode Transfer: 1 (Using shower chair with cutout, pt uses sliding board transfer with assist x2.) Toilet Transfer (QC): 1 Shower: 1 Assessment/Plan Assessment and Plan Assess & Plan/Chief Complaint Assessment: Debility following sacral fracture and spinal cord injury with flaccidity or spasticity of the lower extremities Bipolar Anxiety Urinary retention due to neurogenic bladder Fisher cath likely will need in/out caths versus SP catheter Fecal incontinence Anemia Chest pain chronic Muscle spasms Plan: Monitor pain Monitor bowel and bladder Baclofen for muscle spasms and increase the dose IRF protocol Fisher cath maintained (1) Closed fracture of sacrum Status: Acute Qualifiers: Encounter type: subsequent encounter Zone of sacrum fracture: unspecified portion of sacrum Fracture healing: with nonunion Qualified Codes: S32.10XK - Unspecified fracture of sacrum, subsequent encounter for fracture with nonunion (2) Hyponatremia Status: Acute (3) Traumatic retroperitoneal hematoma Status: Acute Qualifiers: Encounter type: subsequent encounter Qualified Codes: S36.892D - Contusion of other intra-abdominal organs, subsequent encounter (4) Sacral fracture, closed Status: Acute (5) Right rib fracture Status: Acute Qualifiers: Encounter type: subsequent encounter Rib fracture type: multiple ribs Fracture type: closed Fracture healing: with routine healing Qualified Codes: S22.41XD - Multiple fractures of ribs, right side, subsequent encounter for fracture with routine healing (6) Rhabdomyolysis Status: Resolved Resolution Date/Time: 10/25/18 @ 06:25 (7) Fall Status: Acute Qualifiers: Encounter type: subsequent encounter Qualified Codes: W19.XXXD - Unspecified fall, subsequent encounter (8) Fisher catheter in place Status: Acute (9) Neurogenic bladder Status: Acute (10) HTN (hypertension) Status: Chronic Qualifiers: Hypertension type: essential hypertension Qualified Codes: I10 - Essential (primary) hypertension (11) Hypothyroidism Status: Chronic Qualifiers: Hypothyroidism type: acquired Qualified Codes: E03.9 - Hypothyroidism, unspecified (12) Anemia Status: Chronic Qualifiers: Anemia type: unspecified type Qualified Codes: D64.9 - Anemia, unspecified (13) Fecal incontinence Status: Acute Qualifiers: Fecal incontinence type: unspecified Qualified Codes: R15.9 - Full incontinence of feces (14) Chest pain Status: Chronic Qualifiers: Chest pain type: unspecified Qualified Codes: R07.9 - Chest pain, unspecified (15) Bipolar 1 disorder Status: Chronic (16) 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
[2018-10-28 08:42] VITALS: BP 116/71
[2018-10-28] MEDS: OLANZapine 5 MG (ZyPREXA) TAB PO SCH (08:45)
[2018-10-28] MEDS: IBUPROFEN 800 MG (MOTRIN) TAB PO SCH ×3 (08:46→20:08)
[2018-10-28] MEDS: busPIRone 10 MG (BUSPAR) TAB PO SCH ×3 (08:46→20:08)
[2018-10-28] MEDS: LORATADINE (CLARITIN) 10 MG TAB PO SCH (08:46)
[2018-10-28] MEDS: ESTROGENS CONJUGATED 0.45 MG (PREMARIN) TAB PO SCH (08:46)
[2018-10-28] MEDS: ENOXAPARIN 30 MG/0.3 ML (LOVENOX) SYR SC SCH ×2 (08:48→20:09)
[2018-10-28] MEDS: FLUTICASONE NASAL SPRAY (FLONASE) 16 GM BTL NS SCH ×2 (09:19→20:11)
[2018-10-28] MEDS: IPRATROPIUM 0.03% NS SCH ×3 (09:19→20:11)
[2018-10-28] MEDS: POLYETHYLENE GLYCOL 17 GM (MIRALAX) PACK PO SCH ×2 (09:21→20:08)
--- NOTE | 2018-10-28 10:15 | Physical Therapy Daily Note ---
PT Daily Note-Current Subjective Patient in WC pre tx, agrees to PT, has no complaints of pain at rest. Patient is very anxious. Appearance Patient in WC post tx at bedside with nurse call, phone, tray, all needs met. Encouraged to stay out of bed for a while. Mental Status Patient Orientation: Person, Place, Situation Transfers Therapy Code Descriptions/Definitions Functional [place] Measure: 0=Not Assessed/NA 4=Minimal Assistance 1=Total Assistance 5=Supervision or Setup 2=Maximal Assistance 6=Modified [place] 3=Moderate Assistance 7=Complete [place] Therapy Quality Codes: 6 Independent with activity with or without an assistive device 5 Patient requires set up or clean up by helper. Patient completes activity by themselves 4 Supervision or touching assist (CGA). [place] provide cues , steadying assist 3 The helper provides less than half the effort to complete the activity 2 The helper provides more than half the effort to complete the activity 1 Dependent. The helper does all the effort to complete an activity 7 Patient refused to complete or attempt activity 9 The patient did not perform the activity before the current illness or injury 88 Not attempted due to Medical conditions or safety concerns Transfers (B, C, W/C) (FIM): 3 Bed to/from Chair: 3 sliding board transfer x2 with mod assist. Weight Bearing Right Lower Extremity: Right Non Weight Bearing Left Lower Extremity: Left Non Weight Bearing Wheelchair Training Does the Pt Use a Wheelchair?: Yes Wheelchair (FIM): 2 Distance: 100'x2 Wheelchair Level of Assist: 4 Type of Wheelchair: Manual Patient has difficulty with positioning in WC during propelling mostly due to high anxiety Exercises Supine Ex: Ankle pumps, Quad Set, Glut sets, Heel Slides, Straight leg raise, Hip abd/add Supine Reps: 20 LAQ alternating for 5 min Treatments transfers, LE exercise, WC mobility Assessment Current Status: Fair Progress patient has high anxiety which impedes her performance in PT, she almost hyperventilates during activity and is concerned with trivial things instead of concentrating on what she is instructed to do in PT PT Short Term Goals Short Term Goals Time Frame: Nov 09, 2018 Transfers (B,C,W/C) (FIM): 3 (slide board bed<>w/c) Wheelchair Distance: 150' PT Longterm Goals Longterm Goals PT Plastering Contractor Goals Time Frame: Nov 23, 2018 Transfers (B,C,W/C) (FIM): 4 Sit to Lying (QC): 5 Lying-Sitting on Side/Bed(QC): 5 Sit to Stand (QC): 88 Rollin Roll Left to Right (QC): 5 Chair/Ypc-nr-Wdhih Xfer(QC): 4 Car Transfer (QC): 4 Does the Patient Walk: No and Walking Goal NOT indicated Does the Pt use WC or Scooter?: Yes Wheelchair (FIM): 2 Wheelchair distance (FIM): 7=999-05 ft Distance: 100' Wheelchair Level of Assist: 4 Wheel 50 feet with 2 turns (QC: 5 Stairs (FIM): 0 1 Step (curb) (QC): 88 4 Steps (QC): 88 12 Steps (QC): 88 Picking up an Object (QC): 5 PT Plan Problem List Problem List: Activity Tolerance, Functional Strength, Safety, Balance, Transfer, Bed Mobility, ROM Treatment/Plan Treatment Plan: Continue Plan of Care Treatment Plan: Bed Mobility, Concurrent Therapy, Education, Functional Activity Abilio, Functional Strength, Group Therapy, Safety, Therapeutic Exercise, Transfers Treatment Duration: Nov 23, 2018 Frequency: At least 5 of 7 days/Wk (IRF) Estimated Hrs Per Day: 1.5 hours per day Patient and/or Family Agrees t: Yes Safety Risks/Education Patient Education: Transfer Techniques, Correct Positioning, W/C Management, Safety Issues Teaching Recipient: Patient Teaching Methods: Demonstration, Discussion Response to Teaching: Reinforcement Needed Time/GCodes Time In: 0930 Time Out: 1015 Total Billed Treatment Time: 45 Total Billed Treatment 1 visit FA 15' WC 15' EX 15' SANFORD WOODY PT Oct 28, 2018 10:15
--- NOTE | 2018-10-28 10:20 | NUR ---
Pastoral care visit, pt shared some of her story and I also helped her get comfortable and familiar with phone operation
--- NOTE | 2018-10-28 15:13 | Therapy Group Daily Note ---
Therapy Daily Group Note Patient Education Topic Other List Below (ARU orientation, transfers/bed mobility) Exercises LE Seated Exercise, UE Exercise Session Ratio (pt:therapist): 3:1 Goal of Session: Education on ARU Expectations, UE/LE Strengthing, Safety with Transfers Goal Met for this Session: Yes Pt Benefit of Group: Contributions to Others, Increased Functional Strength, Improved Cognition, Recognition of Peers, Socialization Other/Notes Pt transported via w/c to OT/PT group. Group consisted of introduction (name, place living, favorite school activity), socialization, ARU orientation, UE/LE seated exercises and transfer/bed mobility education. Pt introduced self appropriately and actively listened to peers. Pt contributed to conversations and initiated responses to educational topics. Pt demonstrated understanding of group educational topics with affirmative gestures and verbalizing understanding. Pt completed UE/LE seated exercises and tolerated well. After therapy, pt sitting in w/c in room with call light/phone in reach. All needs met in room. Start Time: 13:00 Stop Time: 14:10 Total Billed Treatment Time: 70 Total Billed Treatment 1-GRP NATE PROCTOR Oct 28, 2018 15:13
[2018-10-28 15:44] VITALS: BP 106/65
--- NOTE | 2018-10-28 15:46 | Speech Therapy Daily Note ---
Speech Daily Progress Note Subjective Date Seen by Provider: Oct 28, 2018 Time Seen by Provider: 00:30 The patient was able to recall my name when I entered her room. Objective Patient completed questions that were safety awareness related with 80% given moderate verbal cues and/or repetitions. Assessment Assessment Current Status: Good Progress Treatment Plan Continue Plan of Care Communication Comprehension: 5 Expression: 4 Social Cognition Social Interaction: 6 Problem Solvin Memory: 3 Speech Short Term Goals Short Term Goals Short Term Goals 1) The patient will complete memory tasks with 80% or greater with minimal cues. 2) The patient will complete problem solving tasks with 80% or greater with minimal cues. 3) The patient will complete safety awareness tasks with 80% or greater with minimal cues. Speech Nursing Home Goals Nursing Home Goals The patient will improve cognitive skills in order to return home safely. Speech-Plan Patient/Family Goals Patient/Family Goals: The patient plans on returning home post rehab. It is unclear at this time if this will be the best placement for her upon discharge. Treatment Plan Speech Therapy Treatment Plan: Continue Plan of Care The patient will continue to work on cognitive improvement for personal safety. Treatment Duration: Nov 08, 2018 Frequency: 5 times per week Estimated Hrs Per Day: .5 hour per day Rehab Potential: Fair Barriers to Learning: Patient has cognitive deficits which make her unsafe Pt/Family Agrees to Plan: Yes Safety Risks/Education Teaching Recipient: Patient Teaching Methods: Discussion Response to Teaching: Verbalize Understanding Education Topics Provided: Continued safety within her room. Time Speech Therapy Time In: 12:30 Speech Therapy Time Out: 13:00 Total Billed Time: 30 Billed Treatment Time 1KETTY BETHAN[address] ST Oct 28, 2018 15:46
[2018-10-28 20:07] VITALS: BP 102/62
[2018-10-28] MEDS: GABAPENTIN 400 MG (NEURONTIN) CAP PO SCH (20:08)
[2018-10-28] MEDS: ISOSORBIDE MONONITRATE 60 MG (IMDUR) TAB PO SCH (20:08)
[2018-10-28] MEDS: MONTELUKAST 10 MG (SINGULAIR) TAB PO SCH (20:08)
[2018-10-28] MEDS: SENNA W/DOCUSATE (SENOKOT S) TABLET PO SCH (20:08)
[2018-10-28] MEDS: ZOLPIDEM 5 MG (AMBIEN) TAB PO PRN (22:48)
[2018-10-28] MEDS: BACLOFEN 10 MG (LIORESAL) TAB PO PRN (22:48)
[2018-10-29] MEDS: LEVOTHYROXINE 50 MCG (LEVOTHROID) TAB PO SCH (05:26)
[2018-10-29] MEDS: VENLAFAXINE 50 MG (EFFEXOR) TABLET PO SCH ×2 (05:26→16:18)
[2018-10-29] MEDS: CALCIUM CARB + VIT D 600 MG (CALCARB + D) TAB PO SCH ×2 (05:26→16:18)
[2018-10-29] MEDS: PANTOPRAZOLE 40 MG (PROTONIX) TAB PO SCH (05:26)
[2018-10-29] MEDS: LINACLOTIDE 290 MCG (LINZESS) CAPSULE PO SCH (05:27)
[2018-10-29] MEDS: oxyCODONE/APAP 5/325MG (PERCOCET 5) TABLET PO PRN ×2 (05:27→23:07)
[2018-10-29 06:25] VITALS: BP 117/65
--- NOTE | 2018-10-29 08:10 | Occupational Ther Daily Note ---
OT Current Status-Daily Note Subjective Pt alert sitting in w/c upon OT arrival. Pt agrees to shower. Pt requires constant reassurance throughout therapy session. Decreased problem solving skills noted throughout session. Mental Status/Objective Patient Orientation: Person, Confused Therapy Code Descriptions/Definitions Functional [place] Measure: 0=Not Assessed/NA 4=Minimal Assistance 1=Total Assistance 5=Supervision or Setup 2=Maximal Assistance 6=Modified [place] 3=Moderate Assistance 7=Complete [place] Attachments: Fisher Catheter ADL-Treatment Therapy Code Descriptions/Definitions Functional [place] Measure: 0=Not Assessed/NA 4=Minimal Assistance 1=Total Assistance 5=Supervision or Setup 2=Maximal Assistance 6=Modified [place] 3=Moderate Assistance 7=Complete [place] Therapy Quality Codes: 6 Independent with activity with or without an assistive device 5 Patient requires set up or clean up by helper. Patient completes activity by themselves 4 Supervision or touching assist (CGA). [place] provide cues , steadying assist 3 The helper provides less than half the effort to complete the activity 2 The helper provides more than half the effort to complete the activity 1 Dependent. The helper does all the effort to complete an activity 7 Patient refused to complete or attempt activity 9 The patient did not perform the activity before the current illness or injury 88 Not attempted due to Medical conditions or safety concerns Eating (FIM): 7 (Pt able to complete own set up and use regular utensils to eat.) Eating (QC): 6 Grooming (FIM): 6 (Pt able to brush teeth and hair sitting in w/c at sink. ) Oral Hygiene (QC): 6 Bathing (FIM): 4 (Pt requires shower bench, sliding board, hand held shower head and w/c. Pt educated on how to take hand held shower head off and use. Pt able to wash and rinse. Pt dried upper body. Pt required assist to dry lower body and feet. ) Bathing Location: L Arm, L Upper Leg, R Upper Leg, L Lower Leg (including foot), R Lower Leg (including foot), Chest, Abdomen, Buttocks, Perineal Area Shower/Bathe Self (QC): 3 Upper Body (FIM): 5 (Pt able to don/doff shirt by self. Set up. ) Upper Body Dressing (QC): 5 Lower Body Dressing (FIM): 2 (Pt educated on leaning side to side to doff b riefs. Pt needed step by step VC's. Pt took a break due to increased anxiety. Pt required assist to doff briefs and pants the rest of the way while sitting on shower chair. Pt sitting EOB to don briefs and pants. Pt needed assist to thread fisher through briefs and pants. Pt required assist to to don briefs and pants above knees. Pt laid back in bed and rolled side to side while OT hiked pants above hips. ) Lower Body Dressing (QC): 2 Transfers (B, C, W/C) (FIM): 3 (Pt educated on proper use of sliding board technique. Pt required assist to place sliding board. Pt needs VC's to hike hip so sliding board can be placed properly. Pt has tendency to shift side to side real fast causing pt to slide back down. Pt asked to take a rest break to breathe. Pt required assist to move hips while pt used arms. ) Shower Transfer(FIM): 3 (Pt required assist to place sliding board. VC's needed to hike hip for sliding board placement. Pt required VC's to hike R leg up while ) Pt sitting in w/c eating breakfast with call light/phone in reach after therapy. All needs met in room. OT Short Term Goals Short Term Goals Time Frame: Nov 07, 2018 Eating(FIM): 5 Grooming(FIM): 5 Bathing(FIM): 4 Upper Body Dressing(FIM): 4 Lower Body Dressing(FIM): 3 Toileting(FIM): 3 Transfers (B,C,W/C) (FIM): 3 (slide board bed<>w/c) Toilet/Commode Transfer(FIM): 3 Additional Short Term Goals: 1-Demonstrate ADL Tasks, 2-Verbalize Understanding, 3-ImproveStrength/Abilio 1=Demonstrate adherence to instructed precautions during ADL tasks. 2=Patient will verbalize/demonstrate understanding of assistive devices/modifications for ADL. 3=Patient will improve strength/tolerance for activity to enable patient to perform ADL's. OT [facility] Nurse Goals Snf Goals Time Frame: Nov 21, 2018 Eating (FIM): 6 Eating (QC): 6 Groomin Oral Hygiene (QC): 5 Bathing(FIM): 4 Shower/Bathe Self (QC): 4 Upper Body Dressing(FIM): 5 Upper Body Dressing (QC): 5 Lower Body Dressing(FIM): 5 Lower Body Dressing (QC): 5 On/Off Footwear (QC): 5 Toileting(FIM): 5 Toileting Hygiene (QC): 5 Transfers (B,C,W/C) (FIM): 5 Toilet/Commode Transfer(FIM): 5 Toilet/Commode Transfer (QC): 5 Shower Transfer(FIM): 3 Additional Goals: 1-Demonstrate ADL Tasks, 2-Verbalize Understanding, 3- ImproveStrength/Abilio 1=Demonstrate adherence to instructed precautions during ADL tasks. 2=Patient will verbalize/demonstrate understanding of assistive devices/modifications for ADL. 3=Patient will improve strength/tolerance for activity to enable patient to perform ADL's. OT Education/Plan Problem List/Assessment Assessment: Decreased Activ Tolerance, Decreased Safety Aware, Decreased UE Strength, Impaired Cognition, Impaired Coordination, Impaired Funct Balance, Impaired Self-Care Skills Discharge Recommendations Plan/Recommendations: Continue POC Treatment Plan/Plan of Care Patient would benefit from OT for education, treatment and training to promote independence in ADL's, mobility, safety and/or upper extremity function for ADL's. Plan of Care: ADL Retraining, Functional Mobility, Group Exercise/Act as Ind, UE Funct Exercise/Act Treatment Duration: Nov 21, 2018 Frequency: At least 5 of 7 days/Wk (IRF) Estimated Hrs Per Day: 1.5 hours per day Agreement: Yes Rehab Potential: Fair Time/GCodes Start Time: 06:50 Stop Time: 08:05 Total Time Billed (hr/min): 75 Billed Treatment Time 1 visit-ADL 5 (75 min) NATE PROCTOR Oct 29, 2018 08:10
--- NOTE | 2018-10-29 08:16 | PM&R Progress Note ---
Subjective HPI/CC On Admission Date Seen by Provider: Oct 29, 2018 Time Seen by Provider: 08:30 CC: Debility following sacral fracture and subsequent partial paraplegia Pt is a 67 y/o WF w/ hx of Bipolar d/o, expressive aphasia, HTN, and asthma, who is here from [facility] in [place], [place] after recent fall 2/2 vertigo and unsteady gait at her home which resulted in nondisplaced fracture of the left inferior and superior pubic ramus, a sacral fracture with mild displacement of 1 cm, a mild T12 compression fracture, and posterior fracture of right 9th rib. Pt was admitted to ICU at the time and ortho surg was consulted. Pt was stabilized and sent to [facility] at a tertiary higher level care [facility]. Sacroiliac joints were bridged w/ 2 surgical screws. Rates LLE pain 10/10 at this time. Also c/o muscle spasms in RLE. says Flexeril is not helping. Pt currently has a fisher in place, recent CT showed distended bladder, no hematuria. currently No focal deficits. Pt has chronic constipation and is intermittently incontinent of bowels. Had regular bladder function prior to fall. Reports hx of recent falls as well. Prior to this encounter, pt lived alone at home and ambulated using a walker. Pt has a daughter who lives 23 miles away from her and is able to visit her MWF. 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 Pt was discharged from [facility] with the following meds: PERCOCET 5-325MG 1 TAB Q6H PRN CALCIUM +D 500-200 BID DOCUSATE-SENNA 50-8.6MG 2 TABS HS LOVENOX 30MG SUBQ Q12 HOURS X 14 DAYS Pt has seen: PCP Dr. Kaitlynn Martinez Urologist Dr. Harrell (has f/u on 10/29/18) Ortho Dr. Mccullough (has f/u on 10/29/18) Per Brandie Moreno [facility] Chief complaint: Debility following sacral fracture. HPI: This is a 67yoWF clinic Pt of [facility] that I briefly saw two weeks ago when she was admitted over the weekend after suffering a fall and sustaining a sacral fracture. It became unstable so orthopedic surgery recommended transfer to higher level of care to [facility] and I supported that move. She did undergo surgery to repair that by trauma surgery orthopedics and a screw was placed for stability. She is still having significant neurological deficit since that was completed, remains incontinent of stool and neurogenic bladder retention requiring fisher catheter administration. We will work on transfers to a wheelchair. We encourage her to be up in a chair. Next week appointment scheduled with urology and trauma surgery and it will be assessed at that point regarding additional recommendations. Percocet is barely used now, will rely mostly on Tylenol and did not receive any transfusion, Hgb of 8.7 and is not on any antibiotics. Prior level of functioning was independent without the use of assistive devices so will work towards wheelchair mobility since likely the neurological deficit could be permanent. Subjective/Events-last exam Pt asking what blood type she is and she wants her labs checked for that and I told her we are not able to do that unless she needed a transfusion. Dr. Khan will be consulted for urinary retention. Psych evaluation will be initiated because she appears to be impulsive of psych issues of bipolar Tailbone pain so air mattress will be ordered. Bowels are moving well. Checked meds and labs Conferred with bilingual receptionist therapy notes Review of Systems General: Fatigue Objective Exam Vital Signs Vital Signs Date Time Temp Pulse Resp B/P (MAP) Pulse Ox O2 Delivery O2 Flow Rate FiO2 10/29/18 19:35 97 Room Air 10/29/18 17:52 36.5 85 18 102/64 (77) Capillary Refill : Less Than 3 Seconds General Appearance: No Apparent Distress, WD/WN, Anxious, Chronically ill HEENT: PERRL/EOMI, Normal ENT Inspection, Pharynx Normal Neck: Full Range of Motion, Normal Inspection, Non Tender, Supple Respiratory: Chest Non Tender, Lungs Clear, Normal Breath Sounds, No Accessory Muscle Use, No Respiratory Distress Cardiovascular: Regular Rate, Rhythm, No Edema, No Gallop, No JVD, No Murmur, Normal Peripheral Pulses Gastrointestinal: Normal Bowel Sounds, No Organomegaly, No Pulsatile Mass, Soft Extremity: Normal Capillary Refill, Normal Inspection, Non Tender, No Calf Tenderness, No Pedal Edema, Other (strength right lower leg 1/5, left 1/5) Neurologic/Psychiatric: Alert, Oriented x3, Normal Mood/Affect, inside account representative II-XII Norm as Tested, Motor Weakness (lower leg parpalegia) Skin: Normal Color, Warm/Dry Lymphatic: No Adenopathy Results/Procedures Lab Patient resulted labs reviewed. FIM Transfers Therapy Code Descriptions/Definitions Functional [place] Measure: 0=Not Assessed/NA 4=Minimal Assistance 1=Total Assistance 5=Supervision or Setup 2=Maximal Assistance 6=Modified [place] 3=Moderate Assistance 7=Complete [place] Therapy Quality Codes: 6 Independent with activity with or without an assistive device 5 Patient requires set up or clean up by helper. Patient completes activity by themselves 4 Supervision or touching assist (CGA). [place] provide cues , steadying assist 3 The helper provides less than half the effort to complete the activity 2 The helper provides more than half the effort to complete the activity 1 Dependent. The helper does all the effort to complete an activity 7 Patient refused to complete or attempt activity 9 The patient did not perform the activity before the current illness or injury 88 Not attempted due to Medical conditions or safety concerns Transfers (B, C, W/C) (FIM): 3 Scootin Rollin Roll Left to Right (QC): 1 Supine to/from Sit: 3 Sit to/from Stand: 0 (NWB bilateral LE) Sit to Lying (QC): 1 Sit to Stand (QC): 88 Chair/[id number]-[id number] Xfer(QC): 88 Bed to/from Chair: 3 Car Transfer (QC): 88 Gait Training Does the Patient Walk?: No and Walking Goal NOT indicated Wheelchair Training Does the Pt Use a Wheelchair?: Yes Wheelchair (FIM): 2 Distance: 100'x2 Wheelchair Level of Assist: 4 Type of Wheelchair: Manual Stair Training Stairs (FIM): 0 1 Step (curb) (QC): 88 4 Steps (QC): 88 12 Steps (QC): 88 Balance Picking up an Object (QC): 4 Mental Status/Objective Comprehension: 5 Expression: 4 Social Interaction: 6 Problem Solvin Memory: 3 ADL-Treatment Groomin (Pt able to brush teeth and hair sitting in w/c at sink. ) Oral Hygiene (QC): 6 Bathin (Pt requires shower bench, sliding board, hand held shower head and w/c. Pt educated on how to take hand held shower head off and use. Pt able to wash and rinse. Pt dried upper body. Pt required assist to dry lower body and feet. ) Bathing Location: L Arm, L Upper Leg, R Upper Leg, L Lower Leg (including foot), R Lower Leg (including foot), Chest, Abdomen, Buttocks, Perineal Area Shower/Bathe Self (QC): 3 Upper Extremity Dressin (Pt able to don/doff shirt by self. Set up. ) Upper Body Dressing (QC): 5 Lower Extremity Dressin (Pt educated on LE dressing technique using AE. Pt ) Lower Body Dressing (QC): 3 On/Off Footwear (QC): 1 Toiletin Toileting Hygiene (QC): 1 Toilet/Commode Transfer: 1 (Using shower chair with cutout, pt uses sliding board transfer with assist x2.) Toilet Transfer (QC): 1 Shower: 1 Assessment/Plan Assessment and Plan Assess & Plan/Chief Complaint Assessment: Debility following sacral fracture and spinal cord injury with flaccidity or spasticity of the lower extremities Bipolar Anxiety Urinary retention due to neurogenic bladder Fisher cath likely will need in/out caths versus SP catheter Fecal incontinence Anemia Chest pain chronic Muscle spasms Plan: Monitor pain Monitor bowel and bladder Baclofen for muscle spasms and increase the dose IRF protocol Fisher cath maintained and consulting Urology (1) Closed fracture of sacrum Status: Acute Qualifiers: Encounter type: subsequent encounter Zone of sacrum fracture: unspecified portion of sacrum Fracture healing: with nonunion Qualified Codes: S32.10XK - Unspecified fracture of sacrum, subsequent encounter for fracture with nonunion (2) Hyponatremia Status: Acute (3) Traumatic retroperitoneal hematoma Status: Acute Qualifiers: Encounter type: subsequent encounter Qualified Codes: S36.892D - Contusion of other intra-abdominal organs, subsequent encounter (4) Sacral fracture, closed Status: Acute (5) Right rib fracture Status: Acute Qualifiers: Encounter type: subsequent encounter Rib fracture type: multiple ribs Fracture type: closed Fracture healing: with routine healing Qualified Codes: S22.41XD - Multiple fractures of ribs, right side, subsequent encounter for fracture with routine healing (6) Rhabdomyolysis Status: Resolved Resolution Date/Time: 10/25/18 @ 06:25 (7) Fall Status: Acute Qualifiers: Encounter type: subsequent encounter Qualified Codes: W19.XXXD - Unspecified fall, subsequent encounter (8) Fisher catheter in place Status: Acute (9) Neurogenic bladder Status: Acute (10) HTN (hypertension) Status: Chronic Qualifiers: Hypertension type: essential hypertension Qualified Codes: I10 - Essential (primary) hypertension (11) Hypothyroidism Status: Chronic Qualifiers: Hypothyroidism type: acquired Qualified Codes: E03.9 - Hypothyroidism, unspecified (12) Anemia Status: Chronic Qualifiers: Anemia type: unspecified type Qualified Codes: D64.9 - Anemia, unspecified (13) Fecal incontinence Status: Acute Qualifiers: Fecal incontinence type: unspecified Qualified Codes: R15.9 - Full incontinence of feces (14) Chest pain Status: Chronic Qualifiers: Chest pain type: unspecified Qualified Codes: R07.9 - Chest pain, unspecified (15) Bipolar 1 disorder Status: Chronic (16) MGUS (monoclonal gammopathy of unknown significance) Status: Chronic (17) COPD (chronic obstructive pulmonary disease) Status: Chronic (18) DVT prophylaxis Status: Acute ARIELA ESPINOZA DO Oct 29, 2018 08:16
[2018-10-29] MEDS: ESTROGENS CONJUGATED 0.45 MG (PREMARIN) TAB PO SCH (08:17)
[2018-10-29] MEDS: busPIRone 10 MG (BUSPAR) TAB PO SCH ×3 (08:17→20:44)
[2018-10-29] MEDS: OLANZapine 5 MG (ZyPREXA) TAB PO SCH (08:17)
[2018-10-29] MEDS: IBUPROFEN 800 MG (MOTRIN) TAB PO SCH ×3 (08:17→20:45)
[2018-10-29] MEDS: LORATADINE (CLARITIN) 10 MG TAB PO SCH (08:17)
[2018-10-29] MEDS: FLUTICASONE NASAL SPRAY (FLONASE) 16 GM BTL NS SCH ×2 (08:20→20:47)
[2018-10-29] MEDS: ENOXAPARIN 30 MG/0.3 ML (LOVENOX) SYR SC SCH ×2 (08:22→20:46)
[2018-10-29] MEDS: POLYETHYLENE GLYCOL 17 GM (MIRALAX) PACK PO SCH ×2 (08:24→21:15)
--- NOTE | 2018-10-29 09:00 | NUR ---
BEHAVIORAL HEALTH NOTIFIED OF CONSULT.
--- NOTE | 2018-10-29 09:30 | NUR ---
MAIN COMPLAINT IS "TAILBONE IS SORE". AIR MATTRESS OBTAINED AND PUT ON BED.
--- NOTE | 2018-10-29 09:45 | Physical Therapy Daily Note ---
PT Daily Note-Current Subjective Pt sitting in W/C upon arrival. Pt agrees to PT. Pt needs encouragement that pt can still move w/o WB. Pain Location: No Pain Reported Mental Status Patient Orientation: Person, Confused, Place Attachments: Blum Catheter Transfers Therapy Code Descriptions/Definitions Functional [place] Measure: 0=Not Assessed/NA 4=Minimal Assistance 1=Total Assistance 5=Supervision or Setup 2=Maximal Assistance 6=Modified [place] 3=Moderate Assistance 7=Complete [place] Therapy Quality Codes: 6 Independent with activity with or without an assistive device 5 Patient requires set up or clean up by helper. Patient completes activity by themselves 4 Supervision or touching assist (CGA). [place] provide cues , steadying assist 3 The helper provides less than half the effort to complete the activity 2 The helper provides more than half the effort to complete the activity 1 Dependent. The helper does all the effort to complete an activity 7 Patient refused to complete or attempt activity 9 The patient did not perform the activity before the current illness or injury 88 Not attempted due to Medical conditions or safety concerns Scootin Supine to/from Sit: 3 Sit to Lying (QC): 3 Weight Bearing Right Lower Extremity: Right Non Weight Bearing Left Lower Extremity: Left Non Weight Bearing Gait Training Does the Patient Walk?: No and Walking Goal NOT indicated Wheelchair Training Does the Pt Use a Wheelchair?: Yes Wheelchair (FIM): 5 Wheelchair Distance: 3=150 ft Distance: 225' Wheelchair Level of Assist: 5 Wheel 50 ft with 2 turns (QC): 5 Wheel 150 ft (QC): 5 Type of Wheelchair: Manual Pt needs VC & PC for hand and foot placement as well as sequencing during W/C mobility. Exercises Seated Therapy Exercises: Ankle pumps, Long arc quads, Hip flexion, Kicking activity Seated Reps: 20 Treatments Pt works on W/C mobility with focus on hand & foot placement as well as sequencing. Pt also completes Seated EX in W/C . Pt returns to room at end of tx and would like to lay down. Pt transfers from W/C to EOB using Slide Board and VC & PC during transfer. Pt resting with all needs met, call light in hand. Assessment Current Status: Fair Progress Pt is easily confused with VC and needs redirection and PC to accomplish task. PT Short Term Goals Short Term Goals Time Frame: Nov 09, 2018 Transfers (B,C,W/C) (FIM): 3 (slide board bed<>w/c) Wheelchair Distance: 100'x2 PT Longterm Goals Travel Professional Goals PT Longterm Goals Time Frame: Nov 23, 2018 Transfers (B,C,W/C) (FIM): 4 Sit to Lying (QC): 5 Lying-Sitting on Side/Bed(QC): 5 Sit to Stand (QC): 88 Rollin Roll Left to Right (QC): 5 Chair/Aiq-eo-Glfzw Xfer(QC): 4 Car Transfer (QC): 4 Does the Patient Walk: No and Walking Goal NOT indicated Does the Pt use WC or Scooter?: Yes Wheelchair (FIM): 2 Wheelchair distance (FIM): 7=473-20 ft Distance: 100' Wheelchair Level of Assist: 4 Wheel 50 feet with 2 turns (QC: 5 Stairs (FIM): 0 1 Step (curb) (QC): 88 4 Steps (QC): 88 12 Steps (QC): 88 Picking up an Object (QC): 5 PT Plan Problem List Problem List: Activity Tolerance, Functional Strength, Safety, Balance, Transfer Treatment/Plan Treatment Plan: Continue Plan of Care Treatment Plan: Bed Mobility, Concurrent Therapy, Education, Functional Activity Abilio, Functional Strength, Group Therapy, Safety, Therapeutic Exercise, Transfers Treatment Duration: Nov 23, 2018 Frequency: At least 5 of 7 days/Wk (IRF) Estimated Hrs Per Day: 1.5 hours per day Patient and/or Family Agrees t: Yes Safety Risks/Education Patient Education: Transfer Techniques, Correct Positioning, W/C Management, Safety Issues Teaching Recipient: Patient Teaching Methods: Discussion Response to Teaching: Reinforcement Needed Time/GCodes Time In: 900 Time Out: 945 Total Billed Treatment Time: 45 Total Billed Treatment 1, EX (20m) & [facility] x2 (25m) 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
--- NOTE | 2018-10-29 10:00 | NUR ---
JAMILAH FROM [facility]AVIORAL HEALTH HERE TO SEE PATIENT.
--- NOTE | 2018-10-29 12:00 | NUR ---
DR. LEE HERE TO SEE PATIENT.
[2018-10-29] MEDS: IPRATROPIUM 0.03% NS SCH ×3 (12:17→20:48)
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
--- NOTE | 2018-10-29 13:00 | NUR ---
DEBORAH ESPINOZA FROM [facility], CALLED WONDERING WHY PATIENT DID NOT MAKE IT TO APPOINTMENT WITH ORTHO AND UROLOGY THERE TODAY AND STATES PATIENT ABSOLUTELY NEEDS TO SEE THEM AND ONLY THEY CAN REMOVE RIGHT HIP SUTURES. REQUESTS APPOINTMENT BE MADE FOR THIS SUNDAY AND POKER DEALER NOTIFIED.
--- NOTE | 2018-10-29 13:37 | CONSULTATION REPORT ---
DATE OF SERVICE: 10/29/2018 ATTENDING PHYSICIAN: Dr. Govea. SUMMARY: A 67-year-old lady, who sustained multiple fractures from a fall and has been having a catheter for 14 days. Denies any trial of voiding. Denies any previous trouble passing urine at home, takes no medication for her bladder. She has some seasonal asthma, but no COPD. IMPRESSION: Neurogenic bladder with retention. PLAN: We will try for spontaneous voiding with medications and manage accordingly. We will start her on Flomax 0.4 mg daily and Urecholine 10 mg before meals and at bedtime and check on her response, trial of voiding maybe tomorrow or another day and manage accordingly. Plan was fully explained to the patient. Job ID: [id number] DocumentID: [id number] Dictated Date: 10/29/2018 12:59:41 Principal Developer Date: 10/29/2018 13:36:58 Dictated By: FRANCE LEE MD
--- NOTE | 2018-10-29 14:44 | Physical Therapy Daily Note ---
PT Daily Note-Current Subjective Pt asleep Supine in bed upon arrival. Pt agrees to PT. Pain Numeric Pain Scale: 10-Worst Possible Pain Location: Left Location Body Site: Hip Pain Description: Ache, Tightness Mental Status Patient Orientation: Person, Confused, Place Attachments: Blum Catheter Transfers Therapy Code Descriptions/Definitions Functional [place] Measure: 0=Not Assessed/NA 4=Minimal Assistance 1=Total Assistance 5=Supervision or Setup 2=Maximal Assistance 6=Modified [place] 3=Moderate Assistance 7=Complete [place] Therapy Quality Codes: 6 Independent with activity with or without an assistive device 5 Patient requires set up or clean up by helper. Patient completes activity by themselves 4 Supervision or touching assist (CGA). [place] provide cues , steadying assist 3 The helper provides less than half the effort to complete the activity 2 The helper provides more than half the effort to complete the activity 1 Dependent. The helper does all the effort to complete an activity 7 Patient refused to complete or attempt activity 9 The patient did not perform the activity before the current illness or injury 88 Not attempted due to Medical conditions or safety concerns Weight Bearing Right Lower Extremity: Right Non Weight Bearing Left Lower Extremity: Left Non Weight Bearing Exercises Supine Ex: Ankle pumps, Quad Set, Glut sets, Heel Slides, Scooting, Straight leg raise, Hip abd/add Supine Reps: 15 Treatments Pt completes 2 sets of Supine Ex in bed with RB as needed. Pt resting at end of tx. with all needs met, call light in hand. Assessment Current Status: Good Progress Pt needs VC for safety at times. Pt reports 10/10 pain w/EX but facial expressions don't express 10/10 pain. PT Short Term Goals Short Term Goals Time Frame: Nov 09, 2018 Transfers (B,C,W/C) (FIM): 3 (slide board bed<>w/c) Wheelchair Distance: 225' PT Alf Goals Statistical Developer Goals PT Alf Goals Time Frame: Nov 23, 2018 Transfers (B,C,W/C) (FIM): 4 Sit to Lying (QC): 5 Lying-Sitting on Side/Bed(QC): 5 Sit to Stand (QC): 88 Rollin Roll Left to Right (QC): 5 Chair/[id number] Xfer(QC): 4 Car Transfer (QC): 4 Does the Patient Walk: No and Walking Goal NOT indicated Does the Pt use WC or Scooter?: Yes Wheelchair (FIM): 2 Wheelchair distance (FIM): 2=798-75 ft Distance: 100' Wheelchair Level of Assist: 4 Wheel 50 feet with 2 turns (QC: 5 Stairs (FIM): 0 1 Step (curb) (QC): 88 4 Steps (QC): 88 12 Steps (QC): 88 Picking up an Object (QC): 5 PT Plan Problem List Problem List: Activity Tolerance, Functional Strength, Safety, Balance, Transfer Treatment/Plan Treatment Plan: Continue Plan of Care Treatment Plan: Bed Mobility, Concurrent Therapy, Education, Functional Activity Abilio, Functional Strength, Group Therapy, Safety, Therapeutic Exercise, Transfers Treatment Duration: Nov 23, 2018 Frequency: At least 5 of 7 days/Wk (IRF) Estimated Hrs Per Day: 1.5 hours per day Patient and/or Family Agrees t: Yes Safety Risks/Education Patient Education: Transfer Techniques, Correct Positioning, Safety Issues Teaching Recipient: Patient Teaching Methods: Discussion Response to Teaching: Verbalize Understanding Time/GCodes Time In: 1400 Time Out: 1430 Total Billed Treatment Time: 30 Total Billed Treatment 1, EX x2 (30m) CHA FOOTE PIPING DESIGN SPECIALIST Oct 29, 2018 14:44
--- NOTE | 2018-10-29 15:36 | Speech Therapy Daily Note ---
Speech Daily Progress Note Subjective Date Seen by Provider: Oct 29, 2018 Time Seen by Provider: 00:30 Patient was resting in her bed after OT and PT when I entered her room for ST session. Objective The patient completed a series of memory questions related to her daily needs with 75% accuracy given moderate verbal cuing. Assessment Assessment Current Status: Fair Progress Treatment Plan Continue Plan of Care Communication Comprehension: 5 Expression: 4 Social Cognition Social Interaction: 6 Problem Solvin Memory: 3 Speech Short Term Goals Short Term Goals Short Term Goals 1) The patient will complete memory tasks with 80% or greater with minimal cues. 2) The patient will complete problem solving tasks with 80% or greater with minimal cues. 3) The patient will complete safety awareness tasks with 80% or greater with minimal cues. Speech Safety Associate Goals Usp Goals The patient will improve cognitive skills in order to return home safely. Speech-Plan Patient/Family Goals Patient/Family Goals: Patient states she would like to go home after rehab, however due to her expected lengthy time for recovery she will most likely need to go to a SNF. Treatment Plan Speech Therapy Treatment Plan: Continue Plan of Care Patient is remembering more of the staff names. Treatment Duration: Nov 08, 2018 Frequency: 5 times per week Estimated Hrs Per Day: .5 hour per day Rehab Potential: Fair Barriers to Learning: Patient has cognitive deficits. Pt/Family Agrees to Plan: Yes Safety Risks/Education Teaching Recipient: Patient Teaching Methods: Demonstration, Discussion Response to Teaching: Verbalize Understanding, Return Demonstration Education Topics Provided: Continued safety within her room and communicating the need for assistance appropriately. Time Speech Therapy Time In: 10:30 Speech Therapy Time Out: 11:00 Total Billed Time: 30 Billed Treatment Time 1K[address]TY [address] ST Oct 29, 2018 15:36
--- NOTE | 2018-10-29 16:18 | NUR ---
RN received phone call from DEBORAH Jerry for Dr. Db Mccullough inquiring about f/u appointment that was scheduled for today at 1055. Per RN, DEBORAH Jerry stated patient absolutely had to be seen by Dr. Mccullough and requested an appointment for , 10/31/18. This worker phoned DEBORAH Jerry and rescheduled the patient's appointment for , 10/31/18 at 1100. This worker also phoned Dr. Arianna Lopez's (urologist) office to see if patient could get an appointment on as well, as patient missed f/u appointment scheduled for today at 0900. Patient's appointment with Dr. Lopez is rescheduled for , 10/31/18 at 0900. This worker called [place] Medicaid transportation assistance to arrange for transport to and from appointments. Patient will be picked up on , 10/31/18, from [facility] between 0600 and 0630. She will be transported to Dr. Lopez's office for her 0900 appointment. The patient will be picked up at [address] Lopez's office and transported to Dr. Mccullough's office for her 1100 appointment. Patient will be picked up from Dr. Mccullough's office at 1200 at transported back to [facility] Asim assist phone number is [phone]. This information was written out and a copy was given to the RN and a copy was placed in the patient's paper chart. Patient was informed of her appointments and transportation schedule and verbalized understanding. Addendum: 10/29/18 at 1628 by KEVIN LUCAS RN Confirmation number for above transportation is [id number].
[2018-10-29] MEDS: BETHANECHOL 10 MG (URECHOLINE) TAB PO SCH ×2 (16:19→20:45)
[2018-10-29] MEDS: TAMSULOSIN 0.4 MG (FLOMAX) CAP PO SCH (17:38)
[2018-10-29 17:52] VITALS: BP 102/64
[2018-10-29] MEDS: RT-ADVAIR HFA 45/21 MCG PER PUFF IH SCH (19:35)
[2018-10-29] MEDS: GABAPENTIN 400 MG (NEURONTIN) CAP PO SCH (20:44)
[2018-10-29] MEDS: MONTELUKAST 10 MG (SINGULAIR) TAB PO SCH (20:44)
[2018-10-29] MEDS: SENNA W/DOCUSATE (SENOKOT S) TABLET PO SCH (20:45)
[2018-10-29] MEDS: ISOSORBIDE MONONITRATE 60 MG (IMDUR) TAB PO SCH (20:45)
[2018-10-29] MEDS: BACLOFEN 10 MG (LIORESAL) TAB PO PRN (23:06)
[2018-10-29] MEDS: ZOLPIDEM 5 MG (AMBIEN) TAB PO PRN (23:06)
[2018-10-30 05:23] VITALS: BP 112/65
[2018-10-30] MEDS: CALCIUM CARB + VIT D 600 MG (CALCARB + D) TAB PO SCH ×2 (05:42→16:44)
[2018-10-30] MEDS: LEVOTHYROXINE 50 MCG (LEVOTHROID) TAB PO SCH (05:42)
[2018-10-30] MEDS: BETHANECHOL 10 MG (URECHOLINE) TAB PO SCH ×4 (05:43→20:21)
[2018-10-30] MEDS: VENLAFAXINE 50 MG (EFFEXOR) TABLET PO SCH ×2 (05:43→16:44)
[2018-10-30] MEDS: oxyCODONE/APAP 5/325MG (PERCOCET 5) TABLET PO PRN ×2 (05:43→23:25)
[2018-10-30] MEDS: PANTOPRAZOLE 40 MG (PROTONIX) TAB PO SCH (05:43)
[2018-10-30] MEDS: LINACLOTIDE 290 MCG (LINZESS) CAPSULE PO SCH (05:43)
--- NOTE | 2018-10-30 08:00 | NUR ---
[facility] IS WORKING WELL FOR TAIL BONE PAIN. ERINN HAS APPOINTMENT IN [place] TOMORROW.
--- NOTE | 2018-10-30 08:33 | Occupational Ther Daily Note ---
OT Current Status-Daily Note Subjective Pt alert sitting in bed. Pt agrees to therapy. No c/o pain. Mental Status/Objective Patient Orientation: Person Therapy Code Descriptions/Definitions Functional [place] Measure: 0=Not Assessed/NA 4=Minimal Assistance 1=Total Assistance 5=Supervision or Setup 2=Maximal Assistance 6=Modified [place] 3=Moderate Assistance 7=Complete [place] ADL-Treatment Pt declined shower. Pt performed sponge bath at EOB. Pt has increased anxiety and it hinders problem solving skills. Pt put bra on backwards 2x. Pt was able to correct the problem with increased time. Pt requires step by step instruction and needs constant reassurance from therapists. Therapy Code Descriptions/Definitions Functional [place] Measure: 0=Not Assessed/NA 4=Minimal Assistance 1=Total Assistance 5=Supervision or Setup 2=Maximal Assistance 6=Modified [place] 3=Moderate Assistance 7=Complete [place] Therapy Quality Codes: 6 Independent with activity with or without an assistive device 5 Patient requires set up or clean up by helper. Patient completes activity by themselves 4 Supervision or touching assist (CGA). [place] provide cues , steadying assist 3 The helper provides less than half the effort to complete the activity 2 The helper provides more than half the effort to complete the activity 1 Dependent. The helper does all the effort to complete an activity 7 Patient refused to complete or attempt activity 9 The patient did not perform the activity before the current illness or injury 88 Not attempted due to Medical conditions or safety concerns Bathing Location: L Arm, R Arm, L Upper Leg, R Upper Leg, L Lower Leg (including foot), R Lower Leg (including foot), Chest, Abdomen, Buttocks, Perineal Area Upper Body (FIM): 5 (Pt able to don/doff shirt by self sitting EOB. Set up. ) Upper Body Dressing (QC): 5 Lower Body Dressing (FIM): 2 (Pt required VC's to lean side to side to doff briefs and pants sitting EOB. Pt required AE to doff briefs and pants off of feet. Pt required assist to thread fisher through briefs and pants. Pt required assist to don briefs and pants over heels. Pt able to don briefs and pants over knees by self. Pt required VC's to hike legs up while leaning side to side. Pt able to hike briefs with assist to adjust in back. Pt required assist to don pants over hips. Pt rolled side to side laying in bed. Pt able to don socks by self laying in bed. ) Lower Body Dressing (QC): 2 On/Off Footwear (QC): 5 Transfers (B, C, W/C) (FIM): 4 (Pt required assist to place sliding board in correct place. CGA assist needed while pt is using sliding board. VC's needed whle using sliding board on hand placement. ) Other Treatment Pt propelled self in w/c to therapy gym. Pt performed the landscape crew leader standardized test using R/L hand. The right hand scores are 36,35,30, average for R hand 33. The L hand scores are 40,30,34, average for L hand is 34. Pt performed the pinch standardized test using tip pinch, lateral pinch, and 3 jaw andre. R tip pinch score is 5,6,6, average for R tip pinch is 5. L tip pinch score is 4,5,5, average score for L tip pinch is 4. Lateral tip pinch for R hand is 6,7,7, average score for R hand is 7. Lateral tip pinch for L hand is 7,7,10, average for L hand is 8. Three jaw andre for R hand is 10,8,10, average R hand score is 9.3. Three jaw andre for L hand is 9,10,10, average score for L hand is 9.6. Pt performed 9 hole peg test. Pt completed 9-Hole Peg test for R hand in 36.03 sec and L hand in 35.45 sec. During standardized test pt needed step by step instructions throughout each test. Pt propelled w/c back to room. Pt sitting in w/c, call light and phone in reach. Pts needs met. OT Short Term Goals Short Term Goals Time Frame: Nov 07, 2018 Eating(FIM): 5 Grooming(FIM): 5 Bathing(FIM): 4 Upper Body Dressing(FIM): 4 Lower Body Dressing(FIM): 3 Toileting(FIM): 3 Transfers (B,C,W/C) (FIM): 3 (slide board bed<>w/c) Toilet/Commode Transfer(FIM): 3 Additional Short Term Goals: 1-Demonstrate ADL Tasks, 2-Verbalize Understanding, 3-ImproveStrength/Abilio 1=Demonstrate adherence to instructed precautions during ADL tasks. 2=Patient will verbalize/demonstrate understanding of assistive devices/modifications for ADL. 3=Patient will improve strength/tolerance for activity to enable patient to perform ADL's. OT Retirement Goals Retirement Goals Time Frame: Nov 21, 2018 Eating (FIM): 6 Eating (QC): 6 Groomin Oral Hygiene (QC): 5 Bathing(FIM): 4 Shower/Bathe Self (QC): 4 Upper Body Dressing(FIM): 5 Upper Body Dressing (QC): 5 Lower Body Dressing(FIM): 5 Lower Body Dressing (QC): 5 On/Off Footwear (QC): 5 Toileting(FIM): 5 Toileting Hygiene (QC): 5 Transfers (B,C,W/C) (FIM): 5 Toilet/Commode Transfer(FIM): 5 Toilet/Commode Transfer (QC): 5 Shower Transfer(FIM): 3 Additional Goals: 1-Demonstrate ADL Tasks, 2-Verbalize Understanding, 3- ImproveStrength/Abilio 1=Demonstrate adherence to instructed precautions during ADL tasks. 2=Patient will verbalize/demonstrate understanding of assistive devices/modifications for ADL. 3=Patient will improve strength/tolerance for activity to enable patient to perform ADL's. OT Education/Plan Problem List/Assessment Assessment: Decreased UE Strength, Impaired Self-Care Skills Discharge Recommendations Plan/Recommendations: Continue POC Treatment Plan/Plan of Care Patient would benefit from OT for education, treatment and training to promote independence in ADL's, mobility, safety and/or upper extremity function for ADL's. Plan of Care: ADL Retraining, Functional Mobility, Group Exercise/Act as Ind, UE Funct Exercise/Act Treatment Duration: Nov 21, 2018 Frequency: At least 5 of 7 days/Wk (IRF) Estimated Hrs Per Day: 1.5 hours per day Agreement: Yes Rehab Potential: Fair Time/GCodes Start Time: 06:55 Stop Time: 08:15 Total Time Billed (hr/min): 80 Billed Treatment Time 1 visit- ADL 3 (50 min) EX 2 (30 min) NATE PROCTOR Oct 30, 2018 08:33
[2018-10-30] MEDS: IBUPROFEN 800 MG (MOTRIN) TAB PO SCH ×3 (09:00→20:21)
[2018-10-30] MEDS: ESTROGENS CONJUGATED 0.45 MG (PREMARIN) TAB PO SCH (09:00)
[2018-10-30] MEDS: LORATADINE (CLARITIN) 10 MG TAB PO SCH (09:00)
[2018-10-30] MEDS: busPIRone 10 MG (BUSPAR) TAB PO SCH ×3 (09:00→20:21)
[2018-10-30] MEDS: OLANZapine 5 MG (ZyPREXA) TAB PO SCH (09:00)
--- NOTE | 2018-10-30 09:00 | PM&R Progress Note ---
Subjective HPI/CC On Admission Date Seen by Provider: Oct 30, 2018 Time Seen by Provider: 09:00 CC: Debility following sacral fracture and subsequent partial paraplegia Pt is a 67 y/o WF w/ hx of Bipolar d/o, expressive aphasia, HTN, and asthma, who is here from [facility] in [place], [place] after recent fall 2/2 vertigo and unsteady gait at her home which resulted in nondisplaced fracture of the left inferior and superior pubic ramus, a sacral fracture with mild displacement of 1 cm, a mild T12 compression fracture, and posterior fracture of right 9th rib. Pt was admitted to ICU at the time and ortho surg was consulted. Pt was stabilized and sent to [facility] at a tertiary higher level care incase. Sacroiliac joints were bridged w/ 2 surgical screws. Rates LLE pain 10/10 at this time. Also c/o muscle spasms in RLE. says Flexeril is not helping. Pt currently has a fisher in place, recent CT showed distended bladder, no hematuria. currently No focal deficits. Pt has chronic constipation and is intermittently incontinent of bowels. Had regular bladder function prior to fall. Reports hx of recent falls as well. Prior to this encounter, pt lived alone at home and ambulated using a walker. Pt has a daughter who lives 23 miles away from her and is able to visit her MWF. 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 Pt was discharged from [facility] with the following meds: PERCOCET 5-325MG 1 TAB Q6H PRN CALCIUM +D 500-200 BID DOCUSATE-SENNA 50-8.6MG 2 TABS HS LOVENOX 30MG SUBQ Q12 HOURS X 14 DAYS Pt has seen: PCP Dr. Kaitlynn Martinez Urologist Dr. Harrell (has f/u on 10/29/18) Ortho Dr. Mccullough (has f/u on 10/29/18) Per Brandie Moreno [facility] Chief complaint: Debility following sacral fracture. HPI: This is a 67yoWF clinic Pt of [facility] that I briefly saw two weeks ago when she was admitted over the weekend after suffering a fall and sustaining a sacral fracture. It became unstable so orthopedic surgery recommended transfer to higher level of care to [facility] and I supported that move. She did undergo surgery to repair that by trauma surgery orthopedics and a screw was placed for stability. She is still having significant neurological deficit since that was completed, remains incontinent of stool and neurogenic bladder retention requiring fisher catheter administration. We will work on transfers to a wheelchair. We encourage her to be up in a chair. Next week appointment scheduled with urology and trauma surgery and it will be assessed at that point regarding additional recommendations. Percocet is barely used now, will rely mostly on Tylenol and did not receive any transfusion, Hgb of 8.7 and is not on any antibiotics. Prior level of functioning was independent without the use of assistive devices so will work towards wheelchair mobility since likely the neurological deficit could be permanent. Subjective/Events-last exam Leaving tomorrow morning at 8 to get to [facility] for follow up appointment with orthopedic surgery Dr. Khan was consulted for Fisher catheter maintenance and he started Urecholine Psych eval performed and she doesn't really need any of that service she reports. 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 Using slide board pretty well and she is non weight bearing Ibuprofen TID really helps her Psych eval reviewed She doesn't retain any new info very well at all Checked meds and labs Conferred with boat buffer plastic therapy notes Review of Systems General: Fatigue Objective Exam Vital Signs Vital Signs Date Time Temp Pulse Resp B/P (MAP) Pulse Ox O2 Delivery O2 Flow Rate FiO2 10/30/18 21:05 Room Air 10/30/18 19:10 95 10/30/18 17:25 36.6 76 18 129/76 (93) Capillary Refill : Less Than 3 Seconds General Appearance: No Apparent Distress, WD/WN, Anxious, Chronically ill HEENT: PERRL/EOMI, Normal ENT Inspection, Pharynx Normal Neck: Full Range of Motion, Normal Inspection, Non Tender, Supple Respiratory: Chest Non Tender, Lungs Clear, Normal Breath Sounds, No Accessory Muscle Use, No Respiratory Distress Cardiovascular: Regular Rate, Rhythm, No Edema, No Gallop, No JVD, No Murmur, Normal Peripheral Pulses Gastrointestinal: Normal Bowel Sounds, No Organomegaly, No Pulsatile Mass, Soft Extremity: Normal Capillary Refill, Normal Inspection, Non Tender, No Calf Tenderness, No Pedal Edema, Other (strength right lower leg 1/5, left 1/5) Neurologic/Psychiatric: Alert, Oriented x3, Normal Mood/Affect, thermo processor II-XII Norm as Tested, Motor Weakness (lower leg parpalegia) Skin: Normal Color, Warm/Dry Lymphatic: No Adenopathy Results/Procedures Lab Patient resulted labs reviewed. FIM Transfers Therapy Code Descriptions/Definitions Functional [place] Measure: 0=Not Assessed/NA 4=Minimal Assistance 1=Total Assistance 5=Supervision or Setup 2=Maximal Assistance 6=Modified [place] 3=Moderate Assistance 7=Complete [place] Therapy Quality Codes: 6 Independent with activity with or without an assistive device 5 Patient requires set up or clean up by helper. Patient completes activity by themselves 4 Supervision or touching assist (CGA). [place] provide cues , steadying assist 3 The helper provides less than half the effort to complete the activity 2 The helper provides more than half the effort to complete the activity 1 Dependent. The helper does all the effort to complete an activity 7 Patient refused to complete or attempt activity 9 The patient did not perform the activity before the current illness or injury 88 Not attempted due to Medical conditions or safety concerns Transfers (B, C, W/C) (FIM): 4 (Pt able to place sliding board in correct place. CGA assist needed while pt is using sliding board. VC's needed whle using sliding board on hand placement. ) Scootin Rollin Roll Left to Right (QC): 1 Supine to/from Sit: 3 Sit to/from Stand: 0 (NWB bilateral LE) Sit to Lying (QC): 3 Sit to Stand (QC): 88 Chair/Ebk-ir-Xpsew Xfer(QC): 88 Bed to/from Chair: 3 Car Transfer (QC): 88 Gait Training Does the Patient Walk?: No and Walking Goal NOT indicated Wheelchair Training Does the Pt Use a Wheelchair?: Yes Wheelchair (FIM): 5 Wheelchair Distance: 3=150 ft Distance: 225' Wheelchair Level of Assist: 5 Wheel 50 ft with 2 turns (QC): 5 Wheel 150 ft (QC): 5 Type of Wheelchair: Manual Stair Training Stairs (FIM): 0 1 Step (curb) (QC): 88 4 Steps (QC): 88 12 Steps (QC): 88 Balance Picking up an Object (QC): 4 Mental Status/Objective Comprehension: 5 Expression: 4 Social Interaction: 6 Problem Solvin Memory: 3 ADL-Treatment Feedin (Pt able to complete own set up and use regular utensils to eat.) Eating (QC): 6 Groomin (Pt able to brush teeth and hair sitting in w/c at sink. ) Oral Hygiene (QC): 6 Bathin (Pt requires shower bench, sliding board, hand held shower head and w/c. Pt educated on how to take hand held shower head off and use. Pt able to wash and rinse. Pt dried upper body. Pt required assist to dry lower body and feet. ) Bathing Location: L Arm, R Arm, L Upper Leg, R Upper Leg, L Lower Leg (including foot), R Lower Leg (including foot), Chest, Abdomen, Buttocks, Perineal Area Shower/Bathe Self (QC): 3 Upper Extremity Dressin (Pt able to don/doff shirt by self sitting EOB. Set up. ) Upper Body Dressing (QC): 5 Lower Extremity Dressin (Pt required VC's to lean side to side to doff briefs and pants sitting EOB. Pt required AE to doff briefs and pants off of feet. Pt required assist to thread fisher through briefs and pants. Pt required assist to don bries and pants over heels. Pt able to don briefs and pants over knees by self. Pt required VC's to hike legs up while leaning side to side. Pt able to hike briefs with assist to adjust in back. Pt required assist to don pants over hips. Pt rolled side to side laying in bed. Pt able to don socks by self laying in bed. ) Lower Body Dressing (QC): 3 On/Off Footwear (QC): 1 Toiletin Toileting Hygiene (QC): 1 Toilet/Commode Transfer: 1 (Using shower chair with cutout, pt uses sliding board transfer with assist x2.) Toilet Transfer (QC): 1 Shower: 3 (Pt required assist to place sliding board. VC's needed to hike hip for sliding board placement. Pt required VC's to hike R leg up while ) Assessment/Plan Assessment and Plan Assess & Plan/Chief Complaint Assessment: Debility following sacral fracture and spinal cord injury with flaccidity or spasticity of the lower extremities Bipolar Anxiety Urinary retention due to neurogenic bladder Fisher cath likely will need in/out caths versus SP catheter Fecal incontinence Anemia Chest pain chronic Muscle spasms Plan: Monitor pain Monitor bowel and bladder Baclofen for muscle spasms and increase the dose IRF protocol Fisher cath maintained and consulting Urology Trauma surgery appt tomorrow (1) Closed fracture of sacrum Status: Acute Qualifiers: Encounter type: subsequent encounter Zone of sacrum fracture: unspecified portion of sacrum Fracture healing: with nonunion Qualified Codes: S32.10XK - Unspecified fracture of sacrum, subsequent encounter for fracture with nonunion (2) Hyponatremia Status: Acute (3) Traumatic retroperitoneal hematoma Status: Acute Qualifiers: Encounter type: subsequent encounter Qualified Codes: S36.892D - Contusion of other intra-abdominal organs, subsequent encounter (4) Sacral fracture, closed Status: Acute (5) Right rib fracture Status: Acute Qualifiers: Encounter type: subsequent encounter Rib fracture type: multiple ribs Fra cture type: closed Fracture healing: with routine healing Qualified Codes: S22.41XD - Multiple fractures of ribs, right side, subsequent encounter for fracture with routine healing (6) Rhabdomyolysis Status: Resolved Resolution Date/Time: 10/25/18 @ 06:25 (7) Fall Status: Acute Qualifiers: Encounter type: subsequent encounter Qualified Codes: W19.XXXD - Unspecified fall, subsequent encounter (8) Fisher catheter in place Status: Acute (9) Neurogenic bladder Status: Acute (10) HTN (hypertension) Status: Chronic Qualifiers: Hypertension type: essential hypertension Qualified Codes: I10 - Essential (primary) hypertension (11) Hypothyroidism Status: Chronic Qualifiers: Hypothyroidism type: acquired Qualified Codes: E03.9 - Hypothyroidism, unspecified (12) Anemia Status: Chronic Qualifiers: Anemia type: unspecified type Qualified Codes: D64.9 - Anemia, unspecified (13) Fecal incontinence Status: Acute Qualifiers: Fecal incontinence type: unspecified Qualified Codes: R15.9 - Full incontinence of feces (14) Chest pain Status: Chronic Qualifiers: Chest pain type: unspecified Qualified Codes: R07.9 - Chest pain, unspecified (15) Bipolar 1 disorder Status: Chronic (16) MGUS (monoclonal gammopathy of unknown significance) Status: Chronic (17) COPD (chronic obstructive pulmonary disease) Status: Chronic (18) DVT prophylaxis Status: Acute ARIELA ESPINOZA DO Oct 30, 2018 09:00
[2018-10-30] MEDS: ENOXAPARIN 30 MG/0.3 ML (LOVENOX) SYR SC SCH ×2 (09:05→20:23)
[2018-10-30] MEDS: FLUTICASONE NASAL SPRAY (FLONASE) 16 GM BTL NS SCH ×2 (09:12→20:28)
[2018-10-30] MEDS: IPRATROPIUM 0.03% NS SCH ×3 (09:12→20:28)
[2018-10-30] MEDS: POLYETHYLENE GLYCOL 17 GM (MIRALAX) PACK PO SCH ×2 (09:12→20:23)
--- NOTE | 2018-10-30 09:36 | Physical Therapy Daily Note ---
PT Daily Note-Current Subjective Pt sitting in W/C after finishing with OT upon arrival. Pt agrees to PT. Pain Numeric Pain Scale: 5-Moderate Pain Location Body Site: Sacrum Pain Description: Ache, Tightness Comment: Pt reports pain in back and sacrum, pillow needed for support. Mental Status Patient Orientation: Person, Confused, Place Attachments: Blum Catheter Transfers Therapy Code Descriptions/Definitions Functional [place] Measure: 0=Not Assessed/NA 4=Minimal Assistance 1=Total Assistance 5=Supervision or Setup 2=Maximal Assistance 6=Modified [place] 3=Moderate Assistance 7=Complete [place] Therapy Quality Codes: 6 Independent with activity with or without an assistive device 5 Patient requires set up or clean up by helper. Patient completes activity by themselves 4 Supervision or touching assist (CGA). [place] provide cues , steadying assist 3 The helper provides less than half the effort to complete the activity 2 The helper provides more than half the effort to complete the activity 1 Dependent. The helper does all the effort to complete an activity 7 Patient refused to complete or attempt activity 9 The patient did not perform the activity before the current illness or injury 88 Not attempted due to Medical conditions or safety concerns Weight Bearing Right Lower Extremity: Right Non Weight Bearing Left Lower Extremity: Left Non Weight Bearing Gait Training Does the Patient Walk?: No and Walking Goal NOT indicated Wheelchair Training Does the Pt Use a Wheelchair?: Yes Wheelchair (FIM): 5 Wheelchair Distance: 3=150 ft Distance: 400' Wheelchair Level of Assist: 5 Wheel 50 ft with 2 turns (QC): 5 Wheel 150 ft (QC): 5 Type of Wheelchair: Manual WEIGHT REDUCTION SPECIALIST gives VC for hand placement and sequencing for turns and locking/unlocking brakes. Exercises Seated Therapy Exercises: Ankle pumps, Long arc quads, Chair press-ups, Hip flexion, Kicking activity, Glut set Seated Reps: 15 (2 sets of each) Treatments WEIGHT REDUCTION SPECIALIST has pt practice arm pushups to relieve pressure on sacrum as well as being able to place pillow under sacrum for comfort. Pt practices w/c mobility with focus on turns, hand placement & locking chair for safety. Pt takes RB as needed. Pt also completes 2 sets of Seated EX in W/C. Pt returns to room to rest and WEIGHT REDUCTION SPECIALIST & pt discuss progress, what PT will continue to work on with pt as well as Weekly mtg to discuss progress today. Pt resting in W/C with all needs met, call light in hand. Assessment Pt needs frequent VC for safety especially with locking W/C brakes. PT Short Term Goals Short Term Goals Time Frame: Nov 09, 2018 Transfers (B,C,W/C) (FIM): 3 (slide board bed<>w/c) Wheelchair Distance: 225' PT Construction Pit Worker Goals Prison Goals PT Construction Pit Worker Goals Time Frame: Nov 23, 2018 Transfers (B,C,W/C) (FIM): 4 Sit to Lying (QC): 5 Lying-Sitting on Side/Bed(QC): 5 Sit to Stand (QC): 88 Rollin Roll Left to Right (QC): 5 Chair/Soy-ag-Mfljj Xfer(QC): 4 Car Transfer (QC): 4 Does the Patient Walk: No and Walking Goal NOT indicated Does the Pt use WC or Scooter?: Yes Wheelchair (FIM): 2 Wheelchair distance (FIM): 1=363-73 ft Distance: 100' Wheelchair Level of Assist: 4 Wheel 50 feet with 2 turns (QC: 5 Stairs (FIM): 0 1 Step (curb) (QC): 88 4 Steps (QC): 88 12 Steps (QC): 88 Picking up an Object (QC): 5 PT Plan Problem List Problem List: Activity Tolerance, Functional Strength, Safety, Transfer Treatment/Plan Treatment Plan: Continue Plan of Care Treatment Plan: Bed Mobility, Concurrent Therapy, Education, Functional Activity Abilio, Functional Strength, Group Therapy, Safety, Therapeutic Exercise, Transfers Treatment Duration: Nov 23, 2018 Frequency: At least 5 of 7 days/Wk (IRF) Estimated Hrs Per Day: 1.5 hours per day Patient and/or Family Agrees t: Yes Safety Risks/Education Patient Education: Transfer Techniques, Correct Positioning, W/C Management, Safety Issues Teaching Recipient: Patient Teaching Methods: Discussion Response to Teaching: Reinforcement Needed Time/GCodes Time In: 815 Time Out: 930 Total Billed Treatment Time: 75 Total Billed Treatment 1, WCH (30m), EX x2 (30m) & FA (15m) ELLAMEGA MAGAÑAAH WEIGHT REDUCTION SPECIALIST Oct 30, 2018 09:36
--- NOTE | 2018-10-30 11:41 | NUR ---
Follow-up appointment with Dr. Lopez (urologist) on 10/31/18 at 0900 has been cancelled as patient is being seen by Dr. Khan while on the rehab unit. Dr. Lopez's office states that patient may follow-up with Dr. Lopez if she wishes after she has been discharged from the ARU. Confirmed transportation time with [facility], . Patient will be picked up from hospital at 0815 tomorrow for her f/u appointment with the orthopedic surgeon, Dr. Mccullough, at 1100 in [place], [place]. RN and patient notified.
--- NOTE | 2018-10-30 11:56 | Speech Therapy Daily Note ---
Speech Daily Progress Note Subjective Date Seen by Provider: Oct 30, 2018 Time Seen by Provider: 00:30 The patient was sitting up in her wheelchair when I entered her room. Objective Patient demo ability to complete memory tasks at 80% with minimal to moderate cues. Assessment Assessment Current Status: Good Progress Treatment Plan Continue Plan of Care Communication Comprehension: 5 Expression: 4 Social Cognition Social Interaction: 6 Problem Solvin Memory: 3 Speech Short Term Goals Short Term Goals Short Term Goals 1) The patient will complete memory tasks with 80% or greater with minimal cues. 2) The patient will complete problem solving tasks with 80% or greater with minimal cues. 3) The patient will complete safety awareness tasks with 80% or greater with minimal cues. Speech Animal Trapper Goals Chcf Goals The patient will improve cognitive skills in order to return home safely. Speech-Plan Patient/Family Goals Patient/Family Goals: Patient plans on returning home, however this is not considered a safe environment due to her medical needs. Treatment Plan Speech Therapy Treatment Plan: Continue Plan of Care Patient stated she was in pain, however she was able to participate well with skilled session. Treatment Duration: Nov 08, 2018 Frequency: 5 times per week Estimated Hrs Per Day: .5 hour per day Rehab Potential: Fair Barriers to Learning: Patient has cognitive deficits, especially with retention of new information. Pt/Family Agrees to Plan: Yes Safety Risks/Education Teaching Recipient: Patient Teaching Methods: Demonstration, Discussion Response to Teaching: Verbalize Understanding, Return Demonstration Education Topics Provided: Continued safety awareness and communication of her wants/needs. Time Speech Therapy Time In: 10:00 Speech Therapy Time Out: 10:30 Total Billed Time: 30 Billed Treatment Time [address] Oct 30, 2018 11:56
--- NOTE | 2018-10-30 14:50 | NUR ---
Met with patient to review Team Conference. Patient agreeable to information discussed as well as to a continued stay, with review at next Team Conference (11/06). Patient states she does not feel confident in the thought of returning home, at this time; she attributes this to being unable to safely navigate throughout her home. Patient does confirm she lives in a single level apartment, with no interior or exterior steps. Patient states it would be an option to return home with her daughter, Christine. Will continue to monitor patient's progress with therapies as it relates to the possibility of returning home. If warranted, family training will be scheduled, near dismissal. Will continue to follow for appropriate discharge planning.
--- NOTE | 2018-10-30 16:45 | NUR ---
[facility] REMOVED FROM [facility]. PATIENT STATES WAS ADDICTED TO [facility] IN THE PAST AND DOES NOT WANT IT ANY MORE.
[2018-10-30] MEDS: BACLOFEN 10 MG (LIORESAL) TAB PO PRN ×2 (16:50→23:25)
[2018-10-30 17:25] VITALS: BP 129/76
[2018-10-30] MEDS: TAMSULOSIN 0.4 MG (FLOMAX) CAP PO SCH (18:19)
[2018-10-30] MEDS: RT-ADVAIR HFA 45/21 MCG PER PUFF IH SCH (19:10)
[2018-10-30] MEDS: MONTELUKAST 10 MG (SINGULAIR) TAB PO SCH (20:21)
[2018-10-30] MEDS: ISOSORBIDE MONONITRATE 60 MG (IMDUR) TAB PO SCH (20:21)
[2018-10-30] MEDS: GABAPENTIN 400 MG (NEURONTIN) CAP PO SCH (20:22)
[2018-10-30] MEDS: SENNA W/DOCUSATE (SENOKOT S) TABLET PO SCH (20:23)
[2018-10-30] MEDS: ZOLPIDEM 5 MG (AMBIEN) TAB PO PRN (23:26)
[2018-10-31 05:06] VITALS: BP 111/61
[2018-10-31] MEDS: BETHANECHOL 10 MG (URECHOLINE) TAB PO SCH ×4 (05:47→21:18)
[2018-10-31] MEDS: LEVOTHYROXINE 50 MCG (LEVOTHROID) TAB PO SCH (05:48)
[2018-10-31] MEDS: PANTOPRAZOLE 40 MG (PROTONIX) TAB PO SCH (05:48)
[2018-10-31] MEDS: VENLAFAXINE 50 MG (EFFEXOR) TABLET PO SCH ×2 (05:48→17:10)
[2018-10-31] MEDS: CALCIUM CARB + VIT D 600 MG (CALCARB + D) TAB PO SCH ×2 (05:48→17:10)
[2018-10-31] MEDS: LINACLOTIDE 290 MCG (LINZESS) CAPSULE PO SCH (05:48)
[2018-10-31] MEDS: RT-ADVAIR HFA 45/21 MCG PER PUFF IH SCH ×2 (07:59→19:49)
--- NOTE | 2018-10-31 08:05 | Occupational Ther Daily Note ---
OT Current Status-Daily Note Subjective Pt alert sitting in bed. Pt agrees to shower. Mental Status/Objective Patient Orientation: Person, Place, Time, Situation Therapy Code Descriptions/Definitions Functional [place] Measure: 0=Not Assessed/NA 4=Minimal Assistance 1=Total Assistance 5=Supervision or Setup 2=Maximal Assistance 6=Modified [place] 3=Moderate Assistance 7=Complete [place] ADL-Treatment Pt agrees to shower. Using shower chair with cutout to transport into shower and to bathe on. Pt needed VC's to remember if she used shampoo or not. Pt educated on hand held shower head and pt still needs reinforcement. Pt needs step by step instructions throughout therapy session and forgets within a couple minutes. Pt is unaware of being incontinent of bowels. Therapy Code Descriptions/Definitions Functional [place] Measure: 0=Not Assessed/NA 4=Minimal Assistance 1=Total Assistance 5=Supervision or Setup 2=Maximal Assistance 6=Modified [place] 3=Moderate Assistance 7=Complete [place] Therapy Quality Codes: 6 Independent with activity with or without an assistive device 5 Patient requires set up or clean up by helper. Patient completes activity by themselves 4 Supervision or touching assist (CGA). [place] provide cues , steadying assist 3 The helper provides less than half the effort to complete the activity 2 The helper provides more than half the effort to complete the activity 1 Dependent. The helper does all the effort to complete an activity 7 Patient refused to complete or attempt activity 9 The patient did not perform the activity before the current illness or injury 88 Not attempted due to Medical conditions or safety concerns Grooming (FIM): 5 (Pt able to brush hair and teeth while sitting in w/c. Supervision due to STM issues. ) Oral Hygiene (QC): 4 Bathing (FIM): 4 (Pt requires hand held shower head and shower w/c. Pt required VC's to wash LE. Pt required AE to wash LE. Pt required assist to wash buttocks.) Bathing Location: L Arm, R Arm, L Upper Leg, R Upper Leg, L Lower Leg (including foot), R Lower Leg (including foot), Chest, Abdomen, Perineal Area Shower/Bathe Self (QC): 3 Upper Body (FIM): 5 (Pt able to doff hospital gown by self. Pt able to don bra and shirt by self. Set up. ) Upper Body Dressing (QC): 4 Lower Body Dressing (FIM): 2 (Pt requires assist to thread fisher through brief and pants. Pt required assist to don briefs and pants over feet and knees. Pt ab le to pull briefs and pants to hips while laying in bed. Pt needed VC's to roll side to side. Pt required assist to hike briefs and pants above over waist while rolling side to side. ) Lower Body Dressing (QC): 2 On/Off Footwear (QC): 3 (Pt able to don R shoe by self. Pt required assist to don L shoe. ) Transfers (B, C, W/C) (FIM): 3 (Pt requires placement of sliding board. Pt requires VC's to hike leg for sliding placement. Pt requires VC's for hand placement. CGA while pt is using sliding board. Pt requires VC's to not lean backwards. ) Other Treatment Pt transferred to w/c using sliding board. Pt in w/c, call light and phone in reach. Pts needs met. OT Short Term Goals Short Term Goals Time Frame: Nov 07, 2018 Eating(FIM): 5 Grooming(FIM): 5 Bathing(FIM): 4 Upper Body Dressing(FIM): 4 Lower Body Dressing(FIM): 3 Toileting(FIM): 3 Transfers (B,C,W/C) (FIM): 3 (slide board bed<>w/c) Toilet/Commode Transfer(FIM): 3 Additional Short Term Goals: 1-Demonstrate ADL Tasks, 2-Verbalize Understanding, 3-ImproveStrength/Abilio 1=Demonstrate adherence to instructed precautions during ADL tasks. 2=Patient will verbalize/demonstrate understanding of assistive devices/modifications for ADL. 3=Patient will improve strength/tolerance for activity to enable patient to perform ADL's. OT Wharfinger Chief Goals Long-Term Goals Time Frame: Nov 21, 2018 Eating (FIM): 6 Eating (QC): 6 Groomin Oral Hygiene (QC): 5 Bathing(FIM): 4 Shower/Bathe Self (QC): 4 Upper Body Dressing(FIM): 5 Upper Body Dressing (QC): 5 Lower Body Dressing(FIM): 5 Lower Body Dressing (QC): 5 On/Off Footwear (QC): 5 Toileting(FIM): 5 Toileting Hygiene (QC): 5 Transfers (B,C,W/C) (FIM): 5 Toilet/Commode Transfer(FIM): 5 Toilet/Commode Transfer (QC): 5 Shower Transfer(FIM): 3 Additional Goals: 1-Demonstrate ADL Tasks, 2-Verbalize Understanding, 3- ImproveStrength/Abilio 1=Demonstrate adherence to instructed precautions during ADL tasks. 2=Patient will verbalize/demonstrate understanding of assistive devices/modifications for ADL. 3=Patient will improve strength/tolerance for activity to enable patient to perform ADL's. OT Education/Plan Problem List/Assessment Assessment: Decreased UE Strength, Impaired Self-Care Skills Discharge Recommendations Plan/Recommendations: Continue POC Treatment Plan/Plan of Care Patient would benefit from OT for education, treatment and training to promote independence in ADL's, mobility, safety and/or upper extremity function for ADL's. Plan of Care: ADL Retraining, Functional Mobility, Group Exercise/Act as Ind, UE Funct Exercise/Act Treatment Duration: Nov 21, 2018 Frequency: At least 5 of 7 days/Wk (IRF) Estimated Hrs Per Day: 1.5 hours per day Agreement: Yes Rehab Potential: Fair Time/GCodes Start Time: 06:50 Stop Time: 08:05 Total Time Billed (hr/min): 75 Billed Treatment Time 1 visit- ADL 5 (75 min) NATE PROCTOR Oct 31, 2018 08:05
[2018-10-31] MEDS: oxyCODONE/APAP 5/325MG (PERCOCET 5) TABLET PO PRN ×2 (08:06→23:14)
[2018-10-31] MEDS: POLYETHYLENE GLYCOL 17 GM (MIRALAX) PACK PO SCH ×2 (08:10→21:18)
[2018-10-31] MEDS: IPRATROPIUM 0.03% NS SCH ×3 (08:57→21:15)
[2018-10-31] MEDS: FLUTICASONE NASAL SPRAY (FLONASE) 16 GM BTL NS SCH ×2 (08:57→21:15)
[2018-10-31] MEDS: ENOXAPARIN 30 MG/0.3 ML (LOVENOX) SYR SC SCH ×2 (08:58→21:24)
[2018-10-31] MEDS: busPIRone 10 MG (BUSPAR) TAB PO SCH ×3 (08:58→21:17)
[2018-10-31] MEDS: IBUPROFEN 800 MG (MOTRIN) TAB PO SCH ×3 (08:59→21:17)
[2018-10-31] MEDS: LORATADINE (CLARITIN) 10 MG TAB PO SCH (08:59)
[2018-10-31] MEDS: ESTROGENS CONJUGATED 0.45 MG (PREMARIN) TAB PO SCH (08:59)
[2018-10-31] MEDS: OLANZapine 5 MG (ZyPREXA) TAB PO SCH (09:00)
--- NOTE | 2018-10-31 10:03 | Physical Therapy Daily Note ---
PT Daily Note-Current Subjective Pt planning to attend a doctor appt outside of facility today. During course of planning to leave, pt felt uncomfortable with the transportation and decided not to go at this time. Transfers Therapy Code Descriptions/Definitions Functional [place] Measure: 0=Not Assessed/NA 4=Minimal Assistance 1=Total Assistance 5=Supervision or Setup 2=Maximal Assistance 6=Modified [place] 3=Moderate Assistance 7=Complete [place] Therapy Quality Codes: 6 Independent with activity with or without an assistive device 5 Patient requires set up or clean up by helper. Patient completes activity by themselves 4 Supervision or touching assist (CGA). [place] provide cues , steadying assist 3 The helper provides less than half the effort to complete the activity 2 The helper provides more than half the effort to complete the activity 1 Dependent. The helper does all the effort to complete an activity 7 Patient refused to complete or attempt activity 9 The patient did not perform the activity before the current illness or injury 88 Not attempted due to Medical conditions or safety concerns Weight Bearing Right Lower Extremity: Right Non Weight Bearing Left Lower Extremity: Left Non Weight Bearing Treatments WC mobility training using B U/LE to propel wc. Pt also participated in positioning in the wheelchair and active strength activities to situate in her chair. Pt did not end of going to appt at this time. Pt in wc post treatment. Assessment Pt follows cues well; able to actively assist with wc mobility and positioning in chair for optimal comfort. PT Short Term Goals Short Term Goals Time Frame: Nov 09, 2018 Transfers (B,C,W/C) (FIM): 3 (slide board bed<>w/c) Wheelchair Distance: 400' PT [address] [place] Goals Shelter Goals PT [address] [place] Goals Time Frame: Nov 23, 2018 Transfers (B,C,W/C) (FIM): 4 Sit to Lying (QC): 5 Lying-Sitting on Side/Bed(QC): 5 Sit to Stand (QC): 88 Rollin Roll Left to Right (QC): 5 Chair/Qvk-xb-Jufkv Xfer(QC): 4 Car Transfer (QC): 4 Does the Patient Walk: No and Walking Goal NOT indicated Does the Pt use WC or Scooter?: Yes Wheelchair (FIM): 2 Wheelchair distance (FIM): 7=021-84 ft Distance: 100' Wheelchair Level of Assist: 4 Wheel 50 feet with 2 turns (QC: 5 Stairs (FIM): 0 1 Step (curb) (QC): 88 4 Steps (QC): 88 12 Steps (QC): 88 Picking up an Object (QC): 5 PT Plan Problem List Problem List: Activity Tolerance, Functional Strength, Safety Treatment/Plan Treatment Plan: Continue Plan of Care Treatment Plan: Bed Mobility, Concurrent Therapy, Education, Functional Activity Abilio, Functional Strength, Group Therapy, Safety, Therapeutic Exercise, Transfers Treatment Duration: Nov 23, 2018 Frequency: At least 5 of 7 days/Wk (IRF) Estimated Hrs Per Day: 1.5 hours per day Patient and/or Family Agrees t: Yes Safety Risks/Education Patient Education: Safety Issues Teaching Recipient: Patient Teaching Methods: Discussion Response to Teaching: Reinforcement Needed Time/GCodes Time In: 820 Time Out: 838 Total Billed Treatment Time: 18 Total Billed Treatment visit WC 18 NATE GRIMES PT Oct 31, 2018 10:03
--- NOTE | 2018-10-31 10:21 | Progress Note - Urology ---
Progress Note-Urology Progress Notes/Assess & Plan Progress/Assessment & Plan TOV TODAY Final Diagnosis RETENTION FRANCE LEE MD Oct 31, 2018 10:21
--- NOTE | 2018-10-31 11:27 | Physical Therapy Daily Note ---
PT Daily Note-Current Subjective Pt sitting up in W/C in room upon arrival. Pt agrees to PT. Pain Numeric Pain Scale: 5-Moderate Pain Location: Left Location Body Site: Hip Pain Description: Ache, Tightness Mental Status Patient Orientation: Person, Confused, Place Transfers Therapy Code Descriptions/Definitions Functional [place] Measure: 0=Not Assessed/NA 4=Minimal Assistance 1=Total Assistance 5=Supervision or Setup 2=Maximal Assistance 6=Modified [place] 3=Moderate Assistance 7=Complete [place] Therapy Quality Codes: 6 Independent with activity with or without an assistive device 5 Patient requires set up or clean up by helper. Patient completes activity by themselves 4 Supervision or touching assist (CGA). [place] provide cues , steadying assist 3 The helper provides less than half the effort to complete the activity 2 The helper provides more than half the effort to complete the activity 1 Dependent. The helper does all the effort to complete an activity 7 Patient refused to complete or attempt activity 9 The patient did not perform the activity before the current illness or injury 88 Not attempted due to Medical conditions or safety concerns Weight Bearing Right Lower Extremity: Right Non Weight Bearing Left Lower Extremity: Left Non Weight Bearing Wheelchair Training Does the Pt Use a Wheelchair?: Yes Wheelchair (FIM): 5 Wheelchair Distance: 3=150 ft Distance: 400' Wheelchair Level of Assist: 5 Wheel 50 ft with 2 turns (QC): 5 Wheel 150 ft (QC): 5 Type of Wheelchair: Manual CODING TECHNICIAN gives VC for turning, hand placement & sequencing throughout W/C mobility. Exercises Seated Therapy Exercises: Ankle pumps, Long arc quads, Hip flexion, Kicking activity, Hamstring Curls, Glut set Seated Reps: 15 Treatments Pt works on W/C mobility especially with hand placement, proper posture, sequencing, turning and activity tolerance. Pt takes RB as needed for fatigue and discomfort. Pt completes Seated EX in W/C. Pt returns to room at end of tx to rest with all needs met, call light in hand. Assessment Current Status: Fair Progress Pt needs redirection frequently during tx. PT Short Term Goals Short Term Goals Time Frame: Nov 09, 2018 Transfers (B,C,W/C) (FIM): 3 (slide board bed<>w/c) Wheelchair Distance: 400' PT Custodial Goals Custodial Goals PT Custodial Goals Time Frame: Nov 23, 2018 Transfers (B,C,W/C) (FIM): 4 Sit to Lying (QC): 5 Lying-Sitting on Side/Bed(QC): 5 Sit to Stand (QC): 88 Rollin Roll Left to Right (QC): 5 Chair/Vgp-vh-Izqrc Xfer(QC): 4 Car Transfer (QC): 4 Does the Patient Walk: No and Walking Goal NOT indicated Does the Pt use WC or Scooter?: Yes Wheelchair (FIM): 2 Wheelchair distance (FIM): 9=044-15 ft Distance: 100' Wheelchair Level of Assist: 4 Wheel 50 feet with 2 turns (QC: 5 Stairs (FIM): 0 1 Step (curb) (QC): 88 4 Steps (QC): 88 12 Steps (QC): 88 Picking up an Object (QC): 5 PT Plan Problem List Problem List: Activity Tolerance, Functional Strength, Safety Treatment/Plan Treatment Plan: Continue Plan of Care Treatment Plan: Bed Mobility, Concurrent Therapy, Education, Functional Activity Abilio, Functional Strength, Group Therapy, Safety, Therapeutic Exercise, Transfers Treatment Duration: Nov 23, 2018 Frequency: At least 5 of 7 days/Wk (IRF) Estimated Hrs Per Day: 1.5 hours per day Patient and/or Family Agrees t: Yes Safety Risks/Education Patient Education: Transfer Techniques, Correct Positioning, W/C Management, Safety Issues Teaching Recipient: Patient Teaching Methods: Discussion Response to Teaching: Reinforcement Needed Time/GCodes Time In: 915 Time Out: 1000 Total Billed Treatment Time: 45 Total Billed Treatment 1, [facility] x2 (25m) & EX (20m) CHA FOOTE CODING TECHNICIAN Oct 31, 2018 11:26
--- NOTE | 2018-10-31 11:36 | NUR ---
Per nurse report to this worker, FLORINDA goddard arrived to take patient to today's appointment with [facility]; however, the patient declined transport as she did not feel safe in his care. It is likely the patient felt this way due to the bus driver/monitor presenting with deficits possibly related to history of CVA, i.e., impaired speech, right-sided hemiplegia, weakness. Additionally, the bus driver/monitor could not recall where he had parked his vehicle. Spoke with DEBORAH Jerry with [facility], in regards to missed appointment. Claritza stated the patient must attend this appointment and the office will accommodate any time today, if transportation can be arranged. This worker contacted [facility] ( EMS), in regards to transporting patient [facility] [place]. EMS technical sales representative is to call this worker once he knows if he can fulfill this request. Claritza informed of this information. If it is not possible to establish transportation, today patient is required to present for her appointment on 11/05/18. Will continue to follow.
--- NOTE | 2018-10-31 12:58 | PM&R Progress Note ---
Subjective HPI/CC On Admission Date Seen by Provider: Oct 31, 2018 Time Seen by Provider: 09:00 CC: Debility following sacral fracture and subsequent partial paraplegia Pt is a 67 y/o WF w/ hx of Bipolar d/o, expressive aphasia, HTN, and asthma, who is here from [facility] in [place], [place] after recent fall 2/2 vertigo and unsteady gait at her home which resulted in nondisplaced fracture of the left inferior and superior pubic ramus, a sacral fracture with mild displacement of 1 cm, a mild T12 compression fracture, and posterior fracture of right 9th rib. Pt was admitted to ICU at the time and ortho surg was consulted. Pt was stabilized and sent to [facility] at a tertiary higher level care incase. Sacroiliac joints were bridged w/ 2 surgical screws. Rates LLE pain 10/10 at this time. Also c/o muscle spasms in RLE. says Flexeril is not helping. Pt currently has a fisher in place, recent CT showed distended bladder, no hematuria. currently No focal deficits. Pt has chronic constipation and is intermittently incontinent of bowels. Had regular bladder function prior to fall. Reports hx of recent falls as well. Prior to this encounter, pt lived alone at home and ambulated using a walker. Pt has a daughter who lives 23 miles away from her and is able to visit her MWF. 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 Pt was discharged from [facility] with the following meds: PERCOCET 5-325MG 1 TAB Q6H PRN CALCIUM +D 500-200 BID DOCUSATE-SENNA 50-8.6MG 2 TABS HS LOVENOX 30MG SUBQ Q12 HOURS X 14 DAYS Pt has seen: PCP Dr. Kaitlynn Martinez Urologist Dr. Harrell (has f/u on 10/29/18) Ortho Dr. Mccullough (has f/u on 10/29/18) Per Brandie Moreno [facility] Chief complaint: Debility following sacral fracture. HPI: This is a 67yoWF clinic Pt of [facility] that I briefly saw two weeks ago when she was admitted over the weekend after suffering a fall and sustaining a sacral fracture. It became unstable so orthopedic surgery recommended transfer to higher level of care to [facility] and I supported that move. She did undergo surgery to repair that by trauma surgery orthopedics and a screw was placed for stability. She is still having significant neurological deficit since that was completed, remains incontinent of stool and neurogenic bladder retention requiring fisher catheter administration. We will work on transfers to a wheelchair. We encourage her to be up in a chair. Next week appointment scheduled with urology and trauma surgery and it will be assessed at that point regarding additional recommendations. Percocet is barely used now, will rely mostly on Tylenol and did not receive any transfusion, Hgb of 8.7 and is not on any antibiotics. Prior level of functioning was independent without the use of assistive devices so will work towards wheelchair mobility since likely the neurological deficit could be permanent. Subjective/Events-last exam Tried to go to [facility] for appointment but the transport did not bring wheelchair and they simply could not get her in safely to go to her appointment so that will need to be rescheduled. Denies any pain. BP remains stable. Bowels are moving. Fisher catheter maintained. Checked meds and labs Conferred with assembler musical instruments therapy notes Review of Systems General: Fatigue Objective Exam Vital Signs Vital Signs Date Time Temp Pulse Resp B/P (MAP) Pulse Ox O2 Delivery O2 Flow Rate FiO2 10/31/18 19:49 94 Room Air 10/31/18 16:49 36.4 79 16 132/83 (99) Capillary Refill : Less Than 3 Seconds General Appearance: No Apparent Distress, WD/WN, Anxious, Chronically ill HEENT: PERRL/EOMI, Normal ENT Inspection, Pharynx Normal Neck: Full Range of Motion, Normal Inspection, Non Tender, Supple Respiratory: Chest Non Tender, Lungs Clear, Normal Breath Sounds, No Accessory Muscle Use, No Respiratory Distress Cardiovascular: Regular Rate, Rhythm, No Edema, No Gallop, No JVD, No Murmur, Normal Peripheral Pulses Gastrointestinal: Normal Bowel Sounds, No Organomegaly, No Pulsatile Mass, Soft Extremity: Normal Capillary Refill, Normal Inspection, Non Tender, No Calf Tenderness, No Pedal Edema, Other (strength right lower leg 1/5, left 1/5) Neurologic/Psychiatric: Alert, Oriented x3, Normal Mood/Affect, ride mechanic II-XII Norm as Tested, Motor Weakness (lower leg parpalegia) Skin: Normal Color, Warm/Dry Lymphatic: No Adenopathy Results/Procedures Lab Patient resulted labs reviewed. FIM Transfers Therapy Code Descriptions/Definitions Functional [place] Measure: 0=Not Assessed/NA 4=Minimal Assistance 1=Total Assistance 5=Supervision or Setup 2=Maximal Assistance 6=Modified [place] 3=Moderate Assistance 7=Complete [place] Therapy Quality Codes: 6 Independent with activity with or without an assistive device 5 Patient requires set up or clean up by helper. Patient completes activity by themselves 4 Supervision or touching assist (CGA). [place] provide cues , steadying ass ist 3 The helper provides less than half the effort to complete the activity 2 The helper provides more than half the effort to complete the activity 1 Dependent. The helper does all the effort to complete an activity 7 Patient refused to complete or attempt activity 9 The patient did not perform the activity before the current illness or injury 88 Not attempted due to Medical conditions or safety concerns Transfers (B, C, W/C) (FIM): 4 (Pt requires placement of sliding board. Pt requires VC's to hike leg for sliding placement. Pt requires VC's for hand placement. CGA while pt is using sliding board. Pt requires VC's to not lean backwards. ) Scootin Rollin Roll Left to Right (QC): 1 Supine to/from Sit: 3 Sit to/from Stand: 0 (NWB bilateral LE) Sit to Lying (QC): 3 Sit to Stand (QC): 88 Chair/Tkc-jl-Zpiqv Xfer(QC): 88 Bed to/from Chair: 3 Car Transfer (QC): 88 Gait Training Does the Patient Walk?: No and Walking Goal NOT indicated Wheelchair Training Does the Pt Use a Wheelchair?: Yes Wheelchair (FIM): 5 Wheelchair Distance: 3=150 ft Distance: 400' Wheelchair Level of Assist: 5 Wheel 50 ft with 2 turns (QC): 5 Wheel 150 ft (QC): 5 Type of Wheelchair: Manual Stair Training Stairs (FIM): 0 1 Step (curb) (QC): 88 4 Steps (QC): 88 12 Steps (QC): 88 Balance Picking up an Object (QC): 4 Mental Status/Objective Comprehension: 5 Expression: 4 Social Interaction: 6 Problem Solvin Memory: 3 ADL-Treatment Feedin (Pt able to complete own set up and use regular utensils to eat.) Eating (QC): 6 Groomin (Pt able to brush hair and teeth while sitting in w/c. Supervision due to safety concern ) Oral Hygiene (QC): 4 Bathin (Pt requires hand held shower head and shower w/c. Pt required VC's to wash LE. Pt required AE to wash LE. Pt required assist to wash buttocks. Supervision needed due to safety concern. ) Bathing Location: L Arm, R Arm, L Upper Leg, R Upper Leg, L Lower Leg (including foot), R Lower Leg (including foot), Chest, Abdomen, Perineal Area Shower/Bathe Self (QC): 4 Upper Extremity Dressin (Pt able to doff hospital gown by self. Pt able to don bra and shirt by self. Set up. ) Upper Body Dressing (QC): 4 Lower Extremity Dressin (Pt requires assist to thread fisher through brief and pants. Pt required assist to don briefs and pants over feet and knees. Pt able to pull briefs and pants to hips while laying in bed. Pt needed VC's to roll side to side. Pt required assist to hike briefs and pants above over waist while rolling side to side. ) Lower Body Dressing (QC): 2 On/Off Footwear (QC): 3 (Pt able to don R shoe by self. Pt required assist to don L shoe. ) Toiletin Toileting Hygiene (QC): 1 Toilet/Commode Transfer: 1 (Using shower chair with cutout, pt uses sliding board transfer with assist x2.) Toilet Transfer (QC): 1 Shower: 3 (Pt required assist to place sliding board. VC's needed to hike hip for sliding board placement. Pt required VC's to hike R leg up while ) Assessment/Plan Assessment and Plan Assess & Plan/Chief Complaint Assessment: Debility following sacral fracture and spinal cord injury with flaccidity or spasticity of the lower extremities Bipolar Anxiety Urinary retention due to neurogenic bladder Fisher cath likely will need in/out caths versus SP catheter Fecal incontinence Anemia Chest pain chronic Muscle spasms Plan: Monitor pain Monitor bowel and bladder Baclofen for muscle spasms and increase the dose IRF protocol Fisher cath maintained and consulting Urology Trauma surgery rescheduled (1) Closed fracture of sacrum Status: Acute Qualifiers: Encounter type: subsequent encounter Zone of sacrum fracture: unspecified portion of sacrum Fracture healing: with nonunion Qualified Codes: S32.10XK - Unspecified fracture of sacrum, subsequent encounter for fracture with nonunion (2) Hyponatremia Status: Acute (3) Traumatic retroperitoneal hematoma Status: Acute Qualifiers: Encounter type: subsequent encounter Qualified Codes: S36.892D - Contusion of other intra-abdominal organs, subsequent encounter (4) Sacral fracture, closed Status: Acute (5) Right rib fracture Status: Acute Qualifiers: Encounter type: subsequent encounter Rib fracture type: multiple ribs Fracture type: closed Fracture healing: with routine healing Qualified Codes: S22.41XD - Multiple fractures of ribs, right side, subsequent encounter for fracture with routine healing (6) Rhabdomyolysis Status: Resolved Resolution Date/Time: 10/25/18 @ 06:25 (7) Fall Status: Acute Qualifiers: Encounter type: subsequent encounter Qualified Codes: W19.XXXD - Unspecified fall, subsequent encounter (8) Fisher catheter in place Status: Acute (9) Neurogenic bladder Status: Acute (10) HTN (hypertension) Status: Chronic Qualifiers: Hypertension type: essential hypertension Qualified Codes: I10 - Essential (primary) hypertension (11) Hypothyroidism Status: Chronic Qualifiers: Hypothyroidism type: acquired Qualified Codes: E03.9 - Hypothyroidism, unspecified (12) Anemia Status: Chronic Qualifiers: Anemia type: unspecified type Qualified Codes: D64.9 - Anemia, unspecified (13) Fecal incontinence Status: Acute Qualifiers: Fecal incontinence type: unspecified Qualified Codes: R15.9 - Full incontinence of feces (14) Chest pain Status: Chronic Qualifiers: Chest pain type: unspecified Qualified Codes: R07.9 - Chest pain, unspecified (15) Bipolar 1 disorder Status: Chronic (16) 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
--- NOTE | 2018-10-31 12:59 | Physical Therapy Daily Note ---
PT Daily Note-Current Subjective Pt asleep in bed upon arrival. Pt agrees to PT. Pain Numeric Pain Scale: 10-Worst Possible Pain Location: Left Location Body Site: Hip Pain Description: Ache Mental Status Patient Orientation: Person, Confused, Place Attachments: Blum Catheter Transfers Therapy Code Descriptions/Definitions Functional [place] Measure: 0=Not Assessed/NA 4=Minimal Assistance 1=Total Assistance 5=Supervision or Setup 2=Maximal Assistance 6=Modified [place] 3=Moderate Assistance 7=Complete [place] Therapy Quality Codes: 6 Independent with activity with or without an assistive device 5 Patient requires set up or clean up by helper. Patient completes activity by themselves 4 Supervision or touching assist (CGA). [place] provide cues , steadying assist 3 The helper provides less than half the effort to complete the activity 2 The helper provides more than half the effort to complete the activity 1 Dependent. The helper does all the effort to complete an activity 7 Patient refused to complete or attempt activity 9 The patient did not perform the activity before the current illness or injury 88 Not attempted due to Medical conditions or safety concerns Weight Bearing Right Lower Extremity: Right Non Weight Bearing Left Lower Extremity: Left Non Weight Bearing Exercises Supine Ex: Ankle pumps, Quad Set, Glut sets, Heel Slides, Straight leg raise, Hip abd/add Supine Reps: 15 Treatments Pt completes Supine EX in bed. Pt resting at end of tx with all needs met, call light in hand. Assessment Current Status: Fair Progress Pt needs constant redirection on how to properly complete Supine EX. PT Short Term Goals Short Term Goals Time Frame: Nov 09, 2018 Transfers (B,C,W/C) (FIM): 3 (slide board bed<>w/c) Wheelchair Distance: 400' PT Office Receptionist Goals Correction Goals PT Correction Goals Time Frame: Nov 23, 2018 Transfers (B,C,W/C) (FIM): 4 Sit to Lying (QC): 5 Lying-Sitting on Side/Bed(QC): 5 Sit to Stand (QC): 88 Rollin Roll Left to Right (QC): 5 Chair/Pvh-oe-Jkfys Xfer(QC): 4 Car Transfer (QC): 4 Does the Patient Walk: No and Walking Goal NOT indicated Does the Pt use WC or Scooter?: Yes Wheelchair (FIM): 2 Wheelchair distance (FIM): 9=436-00 ft Distance: 100' Wheelchair Level of Assist: 4 Wheel 50 feet with 2 turns (QC: 5 Stairs (FIM): 0 1 Step (curb) (QC): 88 4 Steps (QC): 88 12 Steps (QC): 88 Picking up an Object (QC): 5 PT Plan Problem List Problem List: Activity Tolerance, Functional Strength, Safety Treatment/Plan Treatment Plan: Continue Plan of Care Treatment Plan: Bed Mobility, Concurrent Therapy, Education, Functional Activity Abilio, Functional Strength, Group Therapy, Safety, Therapeutic Exercise, Transfers Treatment Duration: Nov 23, 2018 Frequency: At least 5 of 7 days/Wk (IRF) Estimated Hrs Per Day: 1.5 hours per day Patient and/or Family Agrees t: Yes Safety Risks/Education Patient Education: Correct Positioning, Safety Issues Teaching Recipient: Patient Teaching Methods: Discussion Response to Teaching: Reinforcement Needed Time/GCodes Time In: 1245 Time Out: 1300 Total Billed Treatment Time: 15 Total Billed Treatment 1, EX (15m) CHA FOOTE LAWNMOWER REPAIR MECHANIC Oct 31, 2018 12:59
[2018-10-31] MEDS: BACLOFEN 10 MG (LIORESAL) TAB PO PRN ×2 (13:32→23:14)
--- NOTE | 2018-10-31 15:57 | Speech Therapy Daily Note ---
Speech Daily Progress Note Subjective Date Seen by Provider: Oct 31, 2018 Time Seen by Provider: 00:30 The patient was resting in her bed when I entered her room. The patient was tired from her attempt to go to her appt. in [place] which was changed and therapy. Objective The patient completed memory tasks related to her daily needs at 85% with decreased cues. Assessment Assessment Current Status: Good Progress Treatment Plan Continue Plan of Care Communication Comprehension: 5 Expression: 4 Social Cognition Social Interaction: 6 Problem Solvin Memory: 3 Speech Short Term Goals Short Term Goals Short Term Goals 1) The patient will complete memory tasks with 80% or greater with minimal cues. 2) The patient will complete problem solving tasks with 80% or greater with minimal cues. 3) The patient will complete safety awareness tasks with 80% or greater with minimal cues. Speech Longterm Goals Canvas Goods Maker Goals The patient will improve cognitive skills in order to return home safely. Speech-Plan Patient/Family Goals Patient/Family Goals: The patient plans on returning home post rehab. The patient is recommended to go to SNF short term prior to her return home. Treatment Plan Speech Therapy Treatment Plan: Continue Plan of Care The patient is demonstrating progress toward goals. Treatment Duration: Nov 08, 2018 Frequency: 5 times per week Estimated Hrs Per Day: .5 hour per day Rehab Potential: Fair Barriers to Learning: Patient has cognitive deficits, however there is improvement demonstrated. Pt/Family Agrees to Plan: Yes Safety Risks/Education Teaching Recipient: Patient Teaching Methods: Discussion Response to Teaching: Verbalize Understanding Education Topics Provided: Continued communication of her wants/needs and safety Time Speech Therapy Time In: 15:00 Speech Therapy Time Out: 15:30 Total Billed Time: 30 Billed Treatment Time [address] Oct 31, 2018 15:57
[2018-10-31 16:49] VITALS: BP 132/83
[2018-10-31] MEDS: TAMSULOSIN 0.4 MG (FLOMAX) CAP PO SCH (17:12)
--- NOTE | 2018-10-31 19:19 | NUR ---
bedside report received from CONSTANTINO DAMON, assume care of pt
--- NOTE | 2018-10-31 21:13 | NUR ---
bladder scan 337ml straight cath & received 400ml clear bal[place] colored urine
[2018-10-31 21:15] VITALS: BP 139/83
[2018-10-31] MEDS: GABAPENTIN 400 MG (NEURONTIN) CAP PO SCH (21:16)
[2018-10-31] MEDS: SENNA W/DOCUSATE (SENOKOT S) TABLET PO SCH (21:17)
[2018-10-31] MEDS: ISOSORBIDE MONONITRATE 60 MG (IMDUR) TAB PO SCH (21:17)
--- NOTE | 2018-10-31 21:17 | NUR ---
c/o pain level 10/10 on numeric scale, Ultram 100 mg po given
--- NOTE | 2018-10-31 21:20 | NUR ---
assessments & interventions completed, see assessments & interventions
[2018-10-31] MEDS: MONTELUKAST 10 MG (SINGULAIR) TAB PO SCH (21:48)
--- NOTE | 2018-10-31 21:52 | NUR ---
rates pain 3/10 on numeric scale
--- NOTE | 2018-10-31 23:14 | NUR ---
c/o pain level 10/10 on numeric scale, Percocet 5/325 1 tab given & ambrein 5mg & Lioresal 10mg
[2018-10-31] MEDS: ZOLPIDEM 5 MG (AMBIEN) TAB PO PRN (23:15)
--- NOTE | 2018-10-31 23:30 | NUR ---
resting quietly in bed, pain level 0/10 on flacc scale
--- NOTE | 2018-11-01 05:50 | NUR ---
bladder scan showed 394 ml
[2018-11-01 06:00] VITALS: BP 149/79
--- NOTE | 2018-11-01 06:03 | NUR ---
straight cath & received 425 ml urine
[2018-11-01] MEDS: LEVOTHYROXINE 50 MCG (LEVOTHROID) TAB PO SCH (06:23)
[2018-11-01] MEDS: BETHANECHOL 10 MG (URECHOLINE) TAB PO SCH (06:23)
[2018-11-01] MEDS: PANTOPRAZOLE 40 MG (PROTONIX) TAB PO SCH (06:23)
[2018-11-01] MEDS: VENLAFAXINE 50 MG (EFFEXOR) TABLET PO SCH ×2 (06:24→16:55)
[2018-11-01] MEDS: CALCIUM CARB + VIT D 600 MG (CALCARB + D) TAB PO SCH ×2 (06:28→16:55)
[2018-11-01] MEDS: LINACLOTIDE 290 MCG (LINZESS) CAPSULE PO SCH (06:29)
--- NOTE | 2018-11-01 07:19 | NUR ---
bedside report given to SHAWN DAMON
--- NOTE | 2018-11-01 08:00 | NUR ---
HAS BEEN UNABLE TO VOID SINCE CR CATHETER DC'D YESTERDAY. COMPLAIN NERVOUS AND REQUESTING NERVE PILL. STATES IS STRESSED DUE TO THERAPY AND "CAN'T EAT UNTIL THERAPY IS DONE". FEELS TAILBONE PAIN IS NO BETTER.
--- NOTE | 2018-11-01 08:15 | Occupational Ther Daily Note ---
OT Current Status-Daily Note Subjective Pt laying in bed. Pt agrees to therapy. No c/o pain. Mental Status/Objective Patient Orientation: Person, Place, Time, Situation Therapy Code Descriptions/Definitions Functional [place] Measure: 0=Not Assessed/NA 4=Minimal Assistance 1=Total Assistance 5=Supervision or Setup 2=Maximal Assistance 6=Modified [place] 3=Moderate Assistance 7=Complete [place] ADL-Treatment Pt declined showering today. Pt completed sponge bath laying in bed. Pt requires step by step instructions and needs reassurance throughout therapy session. Therapy Code Descriptions/Definitions Functional [place] Measure: 0=Not Assessed/NA 4=Minimal Assistance 1=Total Assistance 5=Supervision or Setup 2=Maximal Assistance 6=Modified [place] 3=Moderate Assistance 7=Complete [place] Therapy Quality Codes: 6 Independent with activity with or without an assistive device 5 Patient requires set up or clean up by helper. Patient completes activity by themselves 4 Supervision or touching assist (CGA). [place] provide cues , steadying assist 3 The helper provides less than half the effort to complete the activity 2 The helper provides more than half the effort to complete the activity 1 Dependent. The helper does all the effort to complete an activity 7 Patient refused to complete or attempt activity 9 The patient did not perform the activity before the current illness or injury 88 Not attempted due to Medical conditions or safety concerns Grooming (FIM): 6 (Pt able to brush hair and teeth sitting in w/c at sink. ) Oral Hygiene (QC): 6 Bathing (FIM): 5 (Pt able to complete sponge bath laying in bed. Pt able to wash, rinse and dry self. Pt rolled side to side wash buttocks by self. Pt required VC's to wash buttocks and LE. Set up. ) Bathing Location: L Arm, R Arm, L Upper Leg, R Upper Leg, L Lower Leg (including foot), R Lower Leg (including foot), Chest, Abdomen, Buttocks, Perineal Area Shower/Bathe Self (QC): 5 Upper Body (FIM): 5 (Pt able to doff hospital gown by self. Pt able to don bra and shirt by self sitting EOB. Set up. ) Upper Body Dressing (QC): 5 Lower Body Dressing (FIM): 5 (Pt able to don briefs and pants by self laying in bed. Pt able to don socks by self. Set up. ) Lower Body Dressing (QC): 5 Transfers (B, C, W/C) (FIM): 4 (Pt required assist to place sliding board. Pt required CGA assist while using slide board. Pt required VC's for hand placement. ) Other Treatment Pt propelled self in w/c to therapy gym. Pt used arms to walk side to side on a mat in both directions while sitting to increase UE strength for functional daily tasks. Pt completed 4 upper body against gravity exercises to increase UE strength for daily activity tasks. Pt participated in arm jacqueline exercise with 1 # wt attached to wrist, 2x 10 reps to increase shoulder ROM and strengthening for daily activity tasks. Pt participated in duration 15 min arm bike at 15 watt resistance to increase UE strength for functional daily activity tasks. Pt propelled self in w/c back to room. Pt sitting in w/c, call light and phone in reach, all needs met. OT Short Term Goals Short Term Goals Time Frame: Nov 07, 2018 Eating(FIM): 5 Grooming(FIM): 5 Bathing(FIM): 4 Upper Body Dressing(FIM): 4 Lower Body Dressing(FIM): 3 Toileting(FIM): 3 Transfers (B,C,W/C) (FIM): 3 (slide board bed<>w/c) Toilet/Commode Transfer(FIM): 3 Additional Short Term Goals: 1-Demonstrate ADL Tasks, 2-Verbalize Understanding, 3-ImproveStrength/Abilio 1=Demonstrate adherence to instructed precautions during ADL tasks. 2=Patient will verbalize/demonstrate understanding of assistive devices/modifications for ADL. 3=Patient will improve strength/tolerance for activity to enable patient to perform ADL's. OT Hse Advisor Goals Hse Advisor Goals Time Frame: Nov 21, 2018 Eating (FIM): 6 Eating (QC): 6 Groomin Oral Hygiene (QC): 5 Bathing(FIM): 4 Shower/Bathe Self (QC): 4 Upper Body Dressing(FIM): 5 Upper Body Dressing (QC): 5 Lower Body Dressing(FIM): 5 Lower Body Dressing (QC): 5 On/Off Footwear (QC): 5 Toileting(FIM): 5 Toileting Hygiene (QC): 5 Transfers (B,C,W/C) (FIM): 5 Toilet/Commode Transfer(FIM): 5 Toilet/Commode Transfer (QC): 5 Shower Transfer(FIM): 3 Additional Goals: 1-Demonstrate ADL Tasks, 2-Verbalize Understanding, 3- ImproveStrength/Abilio 1=Demonstrate adherence to instructed precautions during ADL tasks. 2=Patient will verbalize/demonstrate understanding of assistive devices/modifications for ADL. 3=Patient will improve strength/tolerance for activity to enable patient to perform ADL's. OT Education/Plan Problem List/Assessment Assessment: Decreased UE Strength Discharge Recommendations Plan/Recommendations: Continue POC Treatment Plan/Plan of Care Patient would benefit from OT for education, treatment and training to promote independence in ADL's, mobility, safety and/or upper extremity function for ADL's. Plan of Care: ADL Retraining, Functional Mobility, Group Exercise/Act as Ind, UE Funct Exercise/Act Treatment Duration: Nov 21, 2018 Frequency: At least 5 of 7 days/Wk (IRF) Estimated Hrs Per Day: 1.5 hours per day Agreement: Yes Rehab Potential: Fair Time/GCodes Start Time: 06:50 Stop Time: 08:05 Total Time Billed (hr/min): 75 Billed Treatment Time 1 visit- ADL 3 (40 min) EX 2 (35 min) NATE PROCTOR Nov 01, 2018 08:15
[2018-11-01] MEDS: ESTROGENS CONJUGATED 0.45 MG (PREMARIN) TAB PO SCH (08:27)
[2018-11-01] MEDS: LORATADINE (CLARITIN) 10 MG TAB PO SCH (08:28)
[2018-11-01] MEDS: busPIRone 10 MG (BUSPAR) TAB PO SCH ×3 (08:28→22:53)
[2018-11-01] MEDS: IBUPROFEN 800 MG (MOTRIN) TAB PO SCH ×3 (08:28→22:55)
[2018-11-01] MEDS: OLANZapine 5 MG (ZyPREXA) TAB PO SCH (08:28)
[2018-11-01] MEDS: POLYETHYLENE GLYCOL 17 GM (MIRALAX) PACK PO SCH ×2 (08:30→22:55)
[2018-11-01] MEDS: ENOXAPARIN 30 MG/0.3 ML (LOVENOX) SYR SC SCH ×2 (08:32→22:57)
[2018-11-01] MEDS: FLUTICASONE NASAL SPRAY (FLONASE) 16 GM BTL NS SCH ×2 (08:33→22:56)
[2018-11-01] MEDS: IPRATROPIUM 0.03% NS SCH ×3 (08:35→22:56)
--- NOTE | 2018-11-01 09:46 | Progress Note - Urology ---
Progress Note-Urology Progress Notes/Assess & Plan Progress/Assessment & Plan NO SPONTANEOUS VOIDING. WE WILL INCREASE URECHOLINE TO 25 Final Diagnosis RETENTION FRANCE LEE MD Nov 01, 2018 09:46
--- NOTE | 2018-11-01 09:57 | Physical Therapy Daily Note ---
PT Daily Note-Current Subjective Pt. up in w/c , agrees to Rx. no c/o pain. Pain Location: No Pain Reported Mental Status Patient Orientation: Person, Place, Time, Situation Transfers Therapy Code Descriptions/Definitions Functional [place] Measure: 0=Not Assessed/NA 4=Minimal Assistance 1=Total Assistance 5=Supervision or Setup 2=Maximal Assistance 6=Modified [place] 3=Moderate Assistance 7=Complete [place] Therapy Quality Codes: 6 Independent with activity with or without an assistive device 5 Patient requires set up or clean up by helper. Patient completes activity by themselves 4 Supervision or touching assist (CGA). [place] provide cues , steadying assist 3 The helper provides less than half the effort to complete the activity 2 The helper provides more than half the effort to complete the activity 1 Dependent. The helper does all the effort to complete an activity 7 Patient refused to complete or attempt activity 9 The patient did not perform the activity before the current illness or injury 88 Not attempted due to Medical conditions or safety concerns Transfers (B, C, W/C) (FIM): 3 Scootin Rollin Supine to/from Sit: 5 Bed to/from Chair: 3 pt. needs instructed in use of slide brd, how to place , where to place , safety and height matching as well as how to approach target with w/c for safe TRF. Pt. required assist to place brd and instruction for hand placement and precautions not to wt bear on LEs during sld Weight Bearing Right Lower Extremity: Right Non Weight Bearing Left Lower Extremity: Left Non Weight Bearing Wheelchair Training Does the Pt Use a Wheelchair?: Yes Wheelchair (FIM): 5 Wheelchair Distance: 3=150 ft (150x2) Wheelchair Level of Assist: 5 Type of Wheelchair: Manual needs reminders to lock, practiced ZTR, set obstacle course with much instruction needed for manuvering Exercises Supine Ex: Ankle pumps, Quad Set, Rolling, Glut sets, Heel Slides, Short Arc Quads, Scooting, Straight leg raise, Hip abd/add Supine Reps: 15 (x2) Seated Therapy Exercises: Ankle pumps, Long arc quads, Hip flexion Seated Reps: 15 Assessment Current Status: Fair Progress dependent for sld brd trf PT Short Term Goals Short Term Goals Time Frame: Nov 09, 2018 Transfers (B,C,W/C) (FIM): 3 (slide board bed<>w/c) Wheelchair Distance: 400' PT Chcf Goals Chcf Goals PT Chcf Goals Time Frame: Nov 23, 2018 Transfers (B,C,W/C) (FIM): 4 Sit to Lying (QC): 5 Lying-Sitting on Side/Bed(QC): 5 Sit to Stand (QC): 88 Rollin Roll Left to Right (QC): 5 Chair/Soo-op-Cqptd Xfer(QC): 4 Car Transfer (QC): 4 Does the Patient Walk: No and Walking Goal NOT indicated Does the Pt use WC or Scooter?: Yes Wheelchair (FIM): 2 Wheelchair distance (FIM): 0=433-06 ft Distance: 100' Wheelchair Level of Assist: 4 Wheel 50 feet with 2 turns (QC: 5 Stairs (FIM): 0 1 Step (curb) (QC): 88 4 Steps (QC): 88 12 Steps (QC): 88 Picking up an Object (QC): 5 PT Plan Treatment/Plan Treatment Plan: Continue Plan of Care Treatment Plan: Bed Mobility, Concurrent Therapy, Education, Functional Activity Abilio, Functional Strength, Group Therapy, Safety, Therapeutic Exercise, Transfers Treatment Duration: Nov 23, 2018 Frequency: At least 5 of 7 days/Wk (IRF) Estimated Hrs Per Day: 1.5 hours per day Patient and/or Family Agrees t: Yes Safety Risks/Education Patient Education: Transfer Techniques, Correct Positioning, W/C Management, Disease Process, Safety Issues Teaching Recipient: Patient Teaching Methods: Demonstration, Discussion Response to Teaching: Verbalize Understanding, Return Demonstration, Reinforcement Needed Time/GCodes Time In: 900 Time Out: 1000 Total Billed Treatment Time: 60 Total Billed Treatment 1,w/c 30m,FA20m,EX10m CASSIUS ZIMMERMAN BACKEND JAVA DEVELOPER Nov 01, 2018 09:57
[2018-11-01] MEDS: RT-ADVAIR HFA 45/21 MCG PER PUFF IH SCH ×2 (11:03→19:26)
[2018-11-01] MEDS: BETHANECHOL 25 MG (URECHOLINE) TAB PO SCH ×3 (11:34→22:54)
--- NOTE | 2018-11-01 11:40 | NUR ---
BLADDER SCAN SHOWS 284 CC URINE. WILL CONTINUE TO MONITOR.
[2018-11-01] MEDS: hydrOXYzine (VISTARIL/ATARAX) 25 MG capsule/tablet PO PRN (11:43)
--- NOTE | 2018-11-01 12:11 | PM&R Progress Note ---
Subjective HPI/CC On Admission Date Seen by Provider: Nov 01, 2018 Time Seen by Provider: 09:00 CC: Debility following sacral fracture and subsequent partial paraplegia Pt is a 67 y/o WF w/ hx of Bipolar d/o, expressive aphasia, HTN, and asthma, who is here from [facility] in [place], [place] after recent fall 2/2 vertigo and unsteady gait at her home which resulted in nondisplaced fracture of the left inferior and superior pubic ramus, a sacral fracture with mild displacement of 1 cm, a mild T12 compression fracture, and posterior fracture of right 9th rib. Pt was admitted to ICU at the time and ortho surg was consulted. Pt was stabilized and sent to [place] at a tertiary higher level care incase. Sacroiliac joints were bridged w/ 2 surgical screws. Rates LLE pain 10/10 at this time. Also c/o muscle spasms in RLE. says Flexeril is not helping. Pt currently has a fisher in place, recent CT showed distended bladder, no hematuria. currently No focal deficits. Pt has chronic constipation and is intermittently incontinent of bowels. Had regular bladder function prior to fall. Reports hx of recent falls as well. Prior to this encounter, pt lived alone at home and ambulated using a walker. Pt has a daughter who lives 23 miles away from her and is able to visit her MWF. 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 Pt was discharged from [facility] with the following meds: PERCOCET 5-325MG 1 TAB Q6H PRN CALCIUM +D 500-200 BID DOCUSATE-SENNA 50-8.6MG 2 TABS HS LOVENOX 30MG SUBQ Q12 HOURS X 14 DAYS Pt has seen: PCP Dr. Kaitlynn Martinez Urologist Dr. Harrell (has f/u on 10/29/18) Ortho Dr. Mccullough (has f/u on 10/29/18) Per Brandie Moreno [facility] Chief complaint: Debility following sacral fracture. HPI: This is a 67yoWF clinic Pt of [facility] that I briefly saw two weeks ago when she was admitted over the weekend after suffering a fall and sustaining a sacral fracture. It became unstable so orthopedic surgery recommended transfer to higher level of care to [facility] and I supported that move. She did undergo surgery to repair that by trauma surgery orthopedics and a screw was placed for stability. She is still having significant neurological deficit since that was completed, remains incontinent of stool and neurogenic bladder retention requiring fisher catheter administration. We will work on transfers to a wheelchair. We encourage her to be up in a chair. Next week appointment scheduled with urology and trauma surgery and it will be assessed at that point regarding additional recommendations. Percocet is barely used now, will rely mostly on Tylenol and did not receive any transfusion, Hgb of 8.7 and is not on any antibiotics. Prior level of functioning was independent without the use of assistive devices so will work towards wheelchair mobility since likely the neurological deficit could be permanent. Subjective/Events-last exam Performing straight catheters and that seems to be going pretty well Trauma appointment has been rescheduled Very anxious so will try hydroxyzine low dose Sometimes behaviors or slurring recovery Patient very well may need skilled care discharge Checked meds and labs Conferred with veterinary surgery technician therapy notes Review of Systems Genitourinary: Retention Neurological: Weakness, Numbness, Incoordination Objective Exam Vital Signs Vital Signs Date Time Temp Pulse Resp B/P (MAP) Pulse Ox O2 Delivery O2 Flow Rate FiO2 11/02/18 06:00 36.5 85 16 156/79 (104) 93 Room Air Capillary Refill : Less Than 3 Seconds General Appearance: No Apparent Distress, WD/WN, Anxious, Chronically ill HEENT: PERRL/EOMI, Normal ENT Inspection, Pharynx Normal Neck: Full Range of Motion, Normal Inspection, Non Tender, Supple Respiratory: Chest Non Tender, Lungs Clear, Normal Breath Sounds, No Accessory Muscle Use, No Respiratory Distress Cardiovascular: Regular Rate, Rhythm, No Edema, No Gallop, No JVD, No Murmur, Normal Peripheral Pulses Gastrointestinal: Normal Bowel Sounds, No Organomegaly, No Pulsatile Mass, Soft Extremity: Normal Capillary Refill, Normal Inspection, Non Tender, No Calf Tenderness, No Pedal Edema, Other (strength right lower leg 1/5, left 1/5) Neurologic/Psychiatric: Alert, Oriented x3, Normal Mood/Affect, metal checker II-XII Norm as Tested, Motor Weakness (lower leg parpalegia) Skin: Normal Color, Warm/Dry Lymphatic: No Adenopathy Results/Procedures Lab Patient resulted labs reviewed. FIM Transfers Therapy Code Descriptions/Definitions Functional [place] Measure: 0=Not Assessed/NA 4=Minimal Assistance 1=Total Assistance 5=Supervision or Setup 2=Maximal Assistance 6=Modified [place] 3=Moderate Assistance 7=Complete [place] Therapy Quality Codes: 6 Independent with activity with or without an assistive device 5 Patient requires set up or clean up by helper. Patient completes activity by themselves 4 Supervision or touching assist (CGA). [place] provide cues , steadying assist 3 The helper provides less than half the effort to complete the activity 2 The helper provides more than half the effort to complete the activity 1 Dependent. The helper does all the effort to complete an activity 7 Patient refused to complete or attempt activity 9 The patient did not perform the activity before the current illness or inj ury 88 Not attempted due to Medical conditions or safety concerns Transfers (B, C, W/C) (FIM): 4 (Pt required assist to place sliding board. Pt required CGA assist while using slide board. Pt required VC's for hand placement. ) Scootin Rollin Roll Left to Right (QC): 1 Supine to/from Sit: 5 Sit to/from Stand: 0 (NWB bilateral LE) Sit to Lying (QC): 3 Sit to Stand (QC): 88 Chair/[id number]-Xugmv Xfer(QC): 88 Bed to/from Chair: 3 Car Transfer (QC): 88 Gait Training Does the Patient Walk?: No and Walking Goal NOT indicated Wheelchair Training Does the Pt Use a Wheelchair?: Yes Wheelchair (FIM): 5 Wheelchair Distance: 3=150 ft Distance: 400' Wheelchair Level of Assist: 5 Wheel 50 ft with 2 turns (QC): 5 Wheel 150 ft (QC): 5 Type of Wheelchair: Manual Stair Training Stairs (FIM): 0 1 Step (curb) (QC): 88 4 Steps (QC): 88 12 Steps (QC): 88 Balance Picking up an Object (QC): 4 Mental Status/Objective Comprehension: 5 Expression: 4 Social Interaction: 6 Problem Solvin Memory: 3 ADL-Treatment Feedin (Pt able to complete own set up and use regular utensils to eat.) Eating (QC): 6 Groomin (Pt able to brush hair and teeth sitting in w/c at sink. ) Oral Hygiene (QC): 6 Bathin (Pt able to complete sponge bath laying in bed. Pt able to wash, rinse and dry self. Pt rolled side to side wash buttocks by self. Pt required VC's to wash buttocks and LE. Set up. ) Bathing Location: L Arm, R Arm, L Upper Leg, R Upper Leg, L Lower Leg (including foot), R Lower Leg (including foot), Chest, Abdomen, Buttocks, Perineal Area Shower/Bathe Self (QC): 5 Upper Extremity Dressin (Pt able to doff hospital gown by self. Pt able to don bra and shirt by self sitting EOB. Set up. ) Upper Body Dressing (QC): 5 Lower Extremity Dressin (Pt able to don briefs and pants by self laying in bed. Pt able to don socks by self. Set up. ) Lower Body Dressing (QC): 5 On/Off Footwear (QC): 3 (Pt able to don R shoe by self. Pt required assist to don L shoe. ) Toiletin Toileting Hygiene (QC): 1 Toilet/Commode Transfer: 1 (Using shower chair with cutout, pt uses sliding board transfer with assist x2.) Toilet Transfer (QC): 1 Shower: 3 (Pt required assist to place sliding board. VC's needed to hike hip for sliding board placement. Pt required VC's to hike R leg up while ) Assessment/Plan Assessment and Plan Assess & Plan/Chief Complaint Assessment: Debility following sacral fracture and spinal cord injury with flaccidity or spasticity of the lower extremities Bipolar Anxiety Urinary retention due to neurogenic bladder Fisher cath likely will need in/out caths versus SP catheter Fecal incontinence Anemia Chest pain chronic Muscle spasms Plan: Monitor pain Monitor bowel and bladder Baclofen for muscle spasms and increase the dose IRF protocol Appreciate urology management Trauma surgery rescheduled (1) Closed fracture of sacrum Status: Acute Qualifiers: Encounter type: subsequent encounter Zone of sacrum fracture: unspecified portion of sacrum Fracture healing: with nonunion Qualified Codes: S32.10XK - Unspecified fracture of sacrum, subsequent encounter for fracture with nonunion (2) Hyponatremia Status: Acute (3) Traumatic retroperitoneal hematoma Status: Acute Qualifiers: Encounter type: subsequent encounter Qualified Codes: S36.892D - Contusion of other intra-abdominal organs, subsequent encounter (4) Sacral fracture, closed Status: Acute (5) Right rib fracture Status: Acute Qualifiers: Encounter type: subsequent encounter Rib fracture type: multiple ribs Fracture type: closed Fracture healing: with routine healing Qualified Codes: S22.41XD - Multiple fractures of ribs, right side, subsequent encounter for fracture with routine healing (6) Rhabdomyolysis Status: Resolved Resolution Date/Time: 10/25/18 @ 06:25 (7) Fall Status: Acute Qualifiers: Encounter type: subsequent encounter Qualified Codes: W19.XXXD - Unspecified fall, subsequent encounter (8) Fisher catheter in place Status: Acute (9) Neurogenic bladder Status: Acute (10) HTN (hypertension) Status: Chronic Qualifiers: Hypertension type: essential hypertension Qualified Codes: I10 - Essential (primary) hypertension (11) Hypothyroidism Status: Chronic Qualifiers: Hypothyroidism type: acquired Qualified Codes: E03.9 - Hypothyroidism, unspecified (12) Anemia Status: Chronic Qualifiers: Anemia type: unspecified type Qualified Codes: D64.9 - Anemia, unspecified (13) Fecal incontinence Status: Acute Qualifiers: Fecal incontinence type: unspecified Qualified Codes: R15.9 - Full incontinence of feces (14) Chest pain Status: Chronic Qualifiers: Chest pain type: unspecified Qualified Codes: R07.9 - Chest pain, unspecified (15) Bipolar 1 disorder Status: Chronic (16) MGUS (monoclonal gammopathy of unknown significance) Status: Chronic (17) COPD (chronic obstructive pulmonary disease) Status: Chronic (18) DVT prophylaxis Status: Acute ARIELA ESPINOZA DO Nov 01, 2018 12:11
--- NOTE | 2018-11-01 13:17 | Physical Therapy Daily Note ---
PT Daily Note-Current Subjective Pt. states " I am so tired , c,mon really how much do I have to do"? Pain Numeric Pain Scale: 7 Location: Medial Location Body Site: Back (tail bone) Pain Description: Pressure Mental Status Attachments: Other-See Comments (sld brd) Transfers Therapy Code Descriptions/Definitions Functional [place] Measure: 0=Not Assessed/NA 4=Minimal Assistance 1=Total Assistance 5=Supervision or Setup 2=Maximal Assistance 6=Modified [place] 3=Moderate Assistance 7=Complete [place] Therapy Quality Codes: 6 Independent with activity with or without an assistive device 5 Patient requires set up or clean up by helper. Patient completes activity by themselves 4 Supervision or touching assist (CGA). [place] provide cues , steadying assist 3 The helper provides less than half the effort to complete the activity 2 The helper provides more than half the effort to complete the activity 1 Dependent. The helper does all the effort to complete an activity 7 Patient refused to complete or attempt activity 9 The patient did not perform the activity before the current illness or injury 88 Not attempted due to Medical conditions or safety concerns Transfers (B, C, W/C) (FIM): 3 Scootin (on sld brd) Rollin Supine to/from Sit: 6 sld brd TRF with mod asst to place as well as instruction as to where to put meza ds for leverage etc. Weight Bearing Right Lower Extremity: Right Non Weight Bearing Left Lower Extremity: Left Non Weight Bearing Exercises Supine Ex: Ankle pumps, Scooting, Hip abd/add Supine Reps: 8 Treatments w/c approaches to prep for TRF as well as sld brd TRF Assessment Current Status: Good Progress dependent for mob PT Short Term Goals Short Term Goals Time Frame: Nov 09, 2018 Transfers (B,C,W/C) (FIM): 3 (slide board bed<>w/c) Wheelchair Distance: 400' PT Flavor Tank Tender Goals Halfway Goals PT Halfway Goals Time Frame: Nov 23, 2018 Transfers (B,C,W/C) (FIM): 4 Sit to Lying (QC): 5 Lying-Sitting on Side/Bed(QC): 5 Sit to Stand (QC): 88 Rollin Roll Left to Right (QC): 5 Chair/Iwe-nd-Ygixu Xfer(QC): 4 Car Transfer (QC): 4 Does the Patient Walk: No and Walking Goal NOT indicated Does the Pt use WC or Scooter?: Yes Wheelchair (FIM): 2 Wheelchair distance (FIM): 7=035-65 ft Distance: 100' Wheelchair Level of Assist: 4 Wheel 50 feet with 2 turns (QC: 5 Stairs (FIM): 0 1 Step (curb) (QC): 88 4 Steps (QC): 88 12 Steps (QC): 88 Picking up an Object (QC): 5 PT Plan Treatment/Plan Treatment Plan: Continue Plan of Care Treatment Plan: Bed Mobility, Concurrent Therapy, Education, Functional Activity Abilio, Functional Strength, Group Therapy, Safety, Therapeutic Exercise, Transfers Treatment Duration: Nov 23, 2018 Frequency: At least 5 of 7 days/Wk (IRF) Estimated Hrs Per Day: 1.5 hours per day Patient and/or Family Agrees t: Yes Safety Risks/Education Patient Education: Transfer Techniques, Correct Positioning, W/C Management, Disease Process, Safety Issues Teaching Recipient: Patient Teaching Methods: Demonstration, Discussion Response to Teaching: Verbalize Understanding, Return Demonstration, Reinforcement Needed Time/GCodes Time In: 1300 Time Out: 1315 Total Billed Treatment Time: 15 Total Billed Treatment 1,FA15m CASSIUS ZIMMERMAN PATIENT ASSISTANT Nov 01, 2018 13:17
--- NOTE | 2018-11-01 13:27 | Speech Therapy Daily Note ---
Speech Daily Progress Note Subjective Date Seen by Provider: Nov 01, 2018 Time Seen by Provider: 00:30 The patient was resting in her wheelchair when I entered her room. Objective The patient completed memory tasks related to her daily needs at 90% with minimal cues. Assessment Assessment Current Status: Good Progress Treatment Plan Continue Plan of Care Communication Comprehension: 5 Expression: 4 Social Cognition Social Interaction: 6 Problem Solvin Memory: 3 Speech Short Term Goals Short Term Goals Short Term Goals 1) The patient will complete memory tasks with 80% or greater with minimal cues. 2) The patient will complete problem solving tasks with 80% or greater with minimal cues. 3) The patient will complete safety awareness tasks with 80% or greater with minimal cues. Speech Slot Attendant Goals Residential Goals The patient will improve cognitive skills in order to return home safely. Speech-Plan Patient/Family Goals Patient/Family Goals: The patient plans on returning home, however she will most likely have to go to a SNF short term prior to returning home. Treatment Plan Speech Therapy Treatment Plan: Continue Plan of Care Patient is progressing well with cognitive goals. Treatment Duration: Nov 08, 2018 Frequency: 5 times per week Estimated Hrs Per Day: .5 hour per day Rehab Potential: Fair Barriers to Learning: Patient has cognitive deficits. Pt/Family Agrees to Plan: Yes Safety Risks/Education Teaching Recipient: Patient Teaching Methods: Discussion Response to Teaching: Verbalize Understanding Education Topics Provided: Continued safety and communication Time Speech Therapy Time In: 10:30 Speech Therapy Time Out: 11:00 Total Billed Time: 30 Billed Treatment Time 1KETTY [address] ST Nov 01, 2018 13:27
--- NOTE | 2018-11-01 13:45 | NUR ---
BLADDER SCAN SHOWS 337 CC AND PATIENT CAN NOW FEEL BLADDER IS FULL. STRAIGHT CATH AND RECEIVED 300 CC. DOES NOT FEEL LIKE HYDROXYZINE HELPED.
[2018-11-01 16:58] VITALS: BP 149/78
[2018-11-01] MEDS: TAMSULOSIN 0.4 MG (FLOMAX) CAP PO SCH (18:28)
[2018-11-01] MEDS: BACLOFEN 10 MG (LIORESAL) TAB PO PRN (18:28)
[2018-11-01] MEDS: ZOLPIDEM 5 MG (AMBIEN) TAB PO PRN (22:53)
[2018-11-01] MEDS: ISOSORBIDE MONONITRATE 60 MG (IMDUR) TAB PO SCH (22:54)
[2018-11-01] MEDS: MONTELUKAST 10 MG (SINGULAIR) TAB PO SCH (22:54)
[2018-11-01] MEDS: SENNA W/DOCUSATE (SENOKOT S) TABLET PO SCH (22:55)
[2018-11-01] MEDS: GABAPENTIN 400 MG (NEURONTIN) CAP PO SCH (22:55)
[2018-11-01 22:58] VITALS: BP 128/74
[2018-11-02 06:00] VITALS: BP 156/79
[2018-11-02] MEDS: BETHANECHOL 25 MG (URECHOLINE) TAB PO SCH ×4 (06:03→20:12)
[2018-11-02] MEDS: LEVOTHYROXINE 50 MCG (LEVOTHROID) TAB PO SCH (06:04)
[2018-11-02] MEDS: CALCIUM CARB + VIT D 600 MG (CALCARB + D) TAB PO SCH ×2 (06:04→17:26)
[2018-11-02] MEDS: VENLAFAXINE 50 MG (EFFEXOR) TABLET PO SCH ×2 (06:04→17:26)
[2018-11-02] MEDS: LINACLOTIDE 290 MCG (LINZESS) CAPSULE PO SCH (06:04)
[2018-11-02] MEDS: PANTOPRAZOLE 40 MG (PROTONIX) TAB PO SCH (06:04)
[2018-11-02] MEDS: busPIRone 10 MG (BUSPAR) TAB PO SCH ×3 (09:01→20:12)
[2018-11-02] MEDS: ESTROGENS CONJUGATED 0.45 MG (PREMARIN) TAB PO SCH (09:01)
[2018-11-02] MEDS: LORATADINE (CLARITIN) 10 MG TAB PO SCH (09:01)
[2018-11-02] MEDS: IBUPROFEN 800 MG (MOTRIN) TAB PO SCH ×3 (09:01→20:12)
[2018-11-02] MEDS: OLANZapine 5 MG (ZyPREXA) TAB PO SCH (09:02)
[2018-11-02] MEDS: ENOXAPARIN 30 MG/0.3 ML (LOVENOX) SYR SC SCH ×2 (09:02→20:13)
[2018-11-02] MEDS: POLYETHYLENE GLYCOL 17 GM (MIRALAX) PACK PO SCH ×3 (09:03→20:13)
--- NOTE | 2018-11-02 09:06 | PM&R Progress Note ---
Subjective HPI/CC On Admission Date Seen by Provider: Nov 02, 2018 Time Seen by Provider: 09:15 CC: Debility following sacral fracture and subsequent partial paraplegia Pt is a 67 y/o WF w/ hx of Bipolar d/o, expressive aphasia, HTN, and asthma, who is here from [facility] in [place], [place] after recent fall 2/2 vertigo and unsteady gait at her home which resulted in nondisplaced fracture of the left inferior and superior pubic ramus, a sacral fracture with mild displacement of 1 cm, a mild T12 compression fracture, and posterior fracture of right 9th rib. Pt was admitted to ICU at the time and ortho surg was consulted. Pt was stabilized and sent to [facility] at a tertiary higher level care [facility]. Sacroiliac joints were bridged w/ 2 surgical screws. Rates LLE pain 10/10 at this time. Also c/o muscle spasms in RLE. says Flexeril is not helping. Pt currently has a fisher in place, recent CT showed distended bladder, no hematuria. currently No focal deficits. Pt has chronic constipation and is intermittently incontinent of bowels. Had regular bladder function prior to fall. Reports hx of recent falls as well. Prior to this encounter, pt lived alone at home and ambulated using a walker. Pt has a daughter who lives 23 miles away from her and is able to visit her MWF. 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 Pt was discharged from [facility] with the following meds: PERCOCET 5-325MG 1 TAB Q6H PRN CALCIUM +D 500-200 BID DOCUSATE-SENNA 50-8.6MG 2 TABS HS LOVENOX 30MG SUBQ Q12 HOURS X 14 DAYS Pt has seen: PCP Dr. Kaitlynn Martinez Urologist Dr. Harrell (has f/u on 10/29/18) Ortho Dr. Mccullough (has f/u on 10/29/18) Per Brandie Moreno [facility] Chief complaint: Debility following sacral fracture. HPI: This is a 67yoWF clinic Pt of [facility] that I briefly saw two weeks ago when she was admitted over the weekend after suffering a fall and sustaining a sacral fracture. It became unstable so orthopedic surgery recommended transfer to higher level of care to [facility] and I supported that move. She did undergo surgery to repair that by trauma surgery orthopedics and a screw was placed for stability. She is still having significant neurological deficit since that was completed, remains incontinent of stool and neurogenic bladder retention requiring fisher catheter administration. We will work on transfers to a wheelchair. We encourage her to be up in a chair. Next week appointment scheduled with urology and trauma surgery and it will be assessed at that point regarding additional recommendations. Percocet is barely used now, will rely mostly on Tylenol and did not receive any transfusion, Hgb of 8.7 and is not on any antibiotics. Prior level of functioning was independent without the use of assistive devices so will work towards wheelchair mobility since likely the neurological deficit could be permanent. Subjective/Events-last exam Straight catheters are working well Removed 500 mL yesterday evening and then again at 400 mL early this morning Pain pills are discussed and she wants an increased dose and I do not recommend that and I do recall the trauma surgeon stating that we need to wean her off of the pain medication so we'll try to do that in the near future Hydroxyzine of 5 mg seems to be helping her quite a bit Increase Urecholine per urology to help with the urinary retention Checked meds and labs Conferred with coil inspector therapy notes Review of Systems Genitourinary: Retention Neurological: Weakness, Numbness, Incoordination Objective Exam Vital Signs Vital Signs Date Time Temp Pulse Resp B/P (MAP) Pulse Ox O2 Delivery O2 Flow Rate FiO2 11/02/18 06:00 36.5 85 16 156/79 (104) 93 Room Air Capillary Refill : Less Than 3 Seconds General Appearance: No Apparent Distress, WD/WN, Anxious, Chronically ill HEENT: PERRL/EOMI, Normal ENT Inspection, Pharynx Normal Neck: Full Range of Motion, Normal Inspection, Non Tender, Supple Respiratory: Chest Non Tender, Lungs Clear, Normal Breath Sounds, No Accessory Muscle Use, No Respiratory Distress Cardiovascular: Regular Rate, Rhythm, No Edema, No Gallop, No JVD, No Murmur, Normal Peripheral Pulses Gastrointestinal: Normal Bowel Sounds, No Organomegaly, No Pulsatile Mass, Soft Extremity: Normal Capillary Refill, Normal Inspection, Non Tender, No Calf Tenderness, No Pedal Edema, Other (strength right lower leg 1/5, left 1/5) Neurologic/Psychiatric: Alert, Oriented x3, Normal Mood/Affect, snowboard instructor II-XII Norm as Tested, Motor Weakness (lower leg parpalegia) Skin: Normal Color, Warm/Dry Lymphatic: No Adenopathy Results/Procedures Lab Patient resulted labs reviewed. FIM Transfers Therapy Code Descriptions/Definitions Functional [place] Measure: 0=Not Assessed/NA 4=Minimal Assistance 1=Total Assistance 5=Supervision or Setup 2=Maximal Assistance 6=Modified [place] 3=Moderate Assistance 7=Complete [place] Therapy Quality Codes: 6 Independent with activity with or without an assistive device 5 Patient requires set up or clean up by helper. Patient completes activity by themselves 4 Supervision or touching assist (CGA). [place] provide cues , steadying assist 3 The helper provides less than half the effort to complete the activity 2 The helper provides more than half the effort to complete the activity 1 Dependent. The helper does all the effort to complete an activity 7 Patient refused to complete or attempt activity 9 The patient did not perform the activity before the current illness or injury 88 Not attempted due to Medical conditions or safety concerns Transfers (B, C, W/C) (FIM): 3 Scootin (on sld brd) Rollin Roll Left to Right (QC): 1 Supine to/from Sit: 6 Sit to/from Stand: 0 (NWB bilateral LE) Sit to Lying (QC): 3 Sit to Stand (QC): 88 Chair/Evp-je-Qebsj Xfer(QC): 88 Bed to/from Chair: 3 Car Transfer (QC): 88 Gait Training Does the Patient Walk?: No and Walking Goal NOT indicated Wheelchair Training Does the Pt Use a Wheelchair?: Yes Wheelchair (FIM): 5 Wheelchair Distance: 3=150 ft Distance: 400' Wheelchair Level of Assist: 5 Wheel 50 ft with 2 turns (QC): 5 Wheel 150 ft (QC): 5 Type of Wheelchair: Manual Stair Training Stairs (FIM): 0 1 Step (curb) (QC): 88 4 Steps (QC): 88 12 Steps (QC): 88 Balance Picking up an Object (QC): 4 Mental Status/Objective Comprehension: 5 Expression: 4 Social Interaction: 6 Problem Solvin Memory: 3 ADL-Treatment Feedin (Pt able to complete own set up and use regular utensils to eat.) Eating (QC): 6 Groomin (Pt able to brush hair and teeth sitting in w/c at sink. ) Oral Hygiene (QC): 6 Bathin (Pt able to complete sponge bath laying in bed. Pt able to wash, rinse and dry self. Pt rolled side to side wash buttocks by self. Pt required VC's to wash buttocks and LE. Set up. ) Bathing Location: L Arm, R Arm, L Upper Leg, R Upper Leg, L Lower Leg (including foot), R Lower Leg (including foot), Chest, Abdomen, Buttocks, Perineal Area Shower/Bathe Self (QC): 5 Upper Extremity Dressin (Pt able to doff hospital gown by self. Pt able to don bra and shirt by self sitting EOB. Set up. ) Upper Body Dressing (QC): 5 Lower Extremity Dressin (Pt able to don briefs and pants by self laying in bed. Pt able to don socks by self. Set up. ) Lower Body Dressing (QC): 5 On/Off Footwear (QC): 3 (Pt able to don R shoe by self. Pt required assist to don L shoe. ) Toiletin Toileting Hygiene (QC): 1 Toilet/Commode Transfer: 1 (Using shower chair with cutout, pt uses sliding board transfer with assist x2.) Toilet Transfer (QC): 1 Shower: 3 (Pt required assist to place sliding board. VC's needed to hike hip for sliding board placement. Pt required VC's to hike R leg up while ) Assessment/Plan Assessment and Plan Assess & Plan/Chief Complaint Assessment: Debility following sacral fracture and spinal cord injury with flaccidity or spasticity of the lower extremities Bipolar Anxiety Urinary retention due to neurogenic bladder Fisher cath likely will need in/out caths versus SP catheter Fecal incontinence Anemia Chest pain chronic Muscle spasms Plan: Monitor pain Monitor bowel and bladder Baclofen for muscle spasms and increase the dose IRF protocol Urology appreciated Try to wean off pain medication Low dose of hydroxyzine for anxiety she has a benzodiazepine dependency history Trauma surgery rescheduled (1) Closed fracture of sacrum Status: Acute Qualifiers: Encounter type: subsequent encounter Zone of sacrum fracture: unspecified portion of sacrum Fracture healing: with nonunion Qualified Codes: S32.10XK - Unspecified fracture of sacrum, subsequent encounter for fracture with nonunion (2) Hyponatremia Status: Acute (3) Traumatic retroperitoneal hematoma Status: Acute Qualifiers: Encounter type: subsequent encounter Qualified Codes: S36.892D - Contusion of other intra-abdominal organs, subsequent encounter (4) Sacral fracture, closed Status: Acute (5) Right rib fracture Status: Acute Qualifiers: Encounter type: subsequent encounter Rib fracture type: multiple ribs Fracture type: closed Fracture healing: with routine healing Qualified Codes: S22.41XD - Multiple fractures of ribs, right side, subsequent encounter for fracture with routine healing (6) Rhabdomyolysis Status: Resolved Resolution Date/Time: 10/25/18 @ 06:25 (7) Fall Status: Acute Qualifiers: Encounter type: subsequent encounter Qualified Codes: W19.XXXD - Unspecified fall, subsequent encounter (8) Fisher catheter in place Status: Acute (9) Neurogenic bladder Status: Acute (10) HTN (hypertension) Status: Chronic Qualifiers: Hypertension type: essential hypertension Qualified Codes: I10 - Essential (primary) hypertension (11) Hypothyroidism Status: Chronic Qualifiers: Hypothyroidism type: acquired Qualified Codes: E03.9 - Hypothyroidism, unspecified (12) Anemia Status: Chronic Qualifiers: Anemia type: unspecified type Qualified Codes: D64.9 - Anemia, unspecified (13) Fecal incontinence Status: Acute Qualifiers: Fecal incontinence type: unspecified Qualified Codes: R15.9 - Full incontinence of feces (14) Chest pain Status: Chronic Qualifiers: Chest pain type: unspecified Qualified Codes: R07.9 - Chest pain, unspecified (15) Bipolar 1 disorder Status: Chronic (16) 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
--- NOTE | 2018-11-02 09:49 | Progress Note - Urology ---
Progress Note-Urology Progress Notes/Assess & Plan Progress/Assessment & Plan STILL UNABLE TO VOID. TOLERATES URECHOLINE WELL. PLAN 50MG Final Diagnosis RETENTION FRANCE LEE MD Nov 02, 2018 09:49
[2018-11-02] MEDS: FLUTICASONE NASAL SPRAY (FLONASE) 16 GM BTL NS SCH ×2 (09:57→20:13)
[2018-11-02] MEDS: IPRATROPIUM 0.03% NS SCH ×3 (09:58→20:13)
[2018-11-02] MEDS: DICLOFENAC 1% GEL 100 GM (VOLTAREN) TUBE TOP PRN ×2 (09:58→10:07)
--- NOTE | 2018-11-02 12:21 | Physical Therapy Daily Note ---
PT Daily Note-Current Subjective Pt agreeable to PT session. States she really wants to work on learning to use transfer board Pain Numeric Pain Scale: 10-Worst Possible Pain Comment: "all over", but denies need for pain med Appearance Pt in bed awake and alert upon arrival. At end of session, pt sitting up in recliner with LE's elevated, call light, phone and bedside table within reach Mental Status Patient Orientation: Person, Place, Eyes Open, Situation Transfers Therapy Code Descriptions/Definitions Functional [place] Measure: 0=Not Assessed/NA 4=Minimal Assistance 1=Total Assistance 5=Supervision or Setup 2=Maximal Assistance 6=Modified [place] 3=Moderate Assistance 7=Complete [place] Therapy Quality Codes: 6 Independent with activity with or without an assistive device 5 Patient requires set up or clean up by helper. Patient completes activity by themselves 4 Supervision or touching assist (CGA). [place] provide cues , steadying assist 3 The helper provides less than half the effort to complete the activity 2 The helper provides more than half the effort to complete the activity 1 Dependent. The helper does all the effort to complete an activity 7 Patient refused to complete or attempt activity 9 The patient did not perform the activity before the current illness or injury 88 Not attempted due to Medical conditions or safety concerns Transfers (B, C, W/C) (FIM): 3 Scootin Supine to/from Sit: 3 Pt educated in and performed sliding board transfers from bed to w/c and w/c to recliner. Max skilled verbal instruction and education required, physical assist required, use of towel and pillow case on sliding board for ease of transfer, NWB BLE's, increased time and effort required to perform Weight Bearing Right Lower Extremity: Right Non Weight Bearing Left Lower Extremity: Left Non Weight Bearing Treatments bed mobiltiy, transfers, safety, activity tolerance, functional mobility, education Assessment Current Status: Good Progress PT Short Term Goals Short Term Goals Time Frame: Nov 09, 2018 Transfers (B,C,W/C) (FIM): 3 (slide board bed<>w/c) Wheelchair Distance: 400' PT Driver Education Road Instructor Goals Half-Way Goals PT Half-Way Goals Time Frame: Nov 23, 2018 Transfers (B,C,W/C) (FIM): 4 Sit to Lying (QC): 5 Lying-Sitting on Side/Bed(QC): 5 Sit to Stand (QC): 88 Rollin Roll Left to Right (QC): 5 Chair/Dcn-sn-Bzmal Xfer(QC): 4 Car Transfer (QC): 4 Does the Patient Walk: No and Walking Goal NOT indicated Does the Pt use WC or Scooter?: Yes Wheelchair (FIM): 2 Wheelchair distance (FIM): 7=101-31 ft Distance: 100' Wheelchair Level of Assist: 4 Wheel 50 feet with 2 turns (QC: 5 Stairs (FIM): 0 1 Step (curb) (QC): 88 4 Steps (QC): 88 12 Steps (QC): 88 Picking up an Object (QC): 5 PT Plan Treatment/Plan Treatment Plan: Continue Plan of Care Treatment Plan: Bed Mobility, Concurrent Therapy, Education, Functional Activity Abilio, Functional Strength, Group Therapy, Safety, Therapeutic Exercise, Transfers Treatment Duration: Nov 23, 2018 Frequency: At least 5 of 7 days/Wk (IRF) Estimated Hrs Per Day: 1.5 hours per day Patient and/or Family Agrees t: Yes Safety Risks/Education Patient Education: Transfer Techniques, Correct Positioning, Safety Issues Teaching Recipient: Patient Teaching Methods: Demonstration, Discussion Response to Teaching: Verbalize Understanding, Return Demonstration, Reinforcement Needed Time/GCodes Time In: 1028 Time Out: 1054 Total Billed Treatment Time: 26 Total Billed Treatment 1 visit, FA x26 min NAY LAZARO WATCHMAKING TEACHER Nov 02, 2018 12:21
[2018-11-02] MEDS: RT-ADVAIR HFA 45/21 MCG PER PUFF IH SCH ×2 (12:43→19:11)
[2018-11-02] MEDS: oxyCODONE/APAP 5/325MG (PERCOCET 5) TABLET PO PRN (14:08)
[2018-11-02] MEDS: DOCUSATE SODIUM 100 MG (COLACE) CAP PO PRN (14:14)
--- NOTE | 2018-11-02 14:15 | NUR ---
Pt refused Miralax, states that she doesn't like the way that it makes her stomach feel, offered Dulcolax supps which pt refused, did take Colace. States that her bowels moved some yesterday, & this morning, but, not a lot.
[2018-11-02] MEDS: TAMSULOSIN 0.4 MG (FLOMAX) CAP PO SCH (17:26)
[2018-11-02 18:35] VITALS: BP 121/74
[2018-11-02] MEDS: ISOSORBIDE MONONITRATE 60 MG (IMDUR) TAB PO SCH (20:12)
[2018-11-02] MEDS: MONTELUKAST 10 MG (SINGULAIR) TAB PO SCH (20:12)
[2018-11-02] MEDS: SENNA W/DOCUSATE (SENOKOT S) TABLET PO SCH (20:12)
[2018-11-02] MEDS: GABAPENTIN 400 MG (NEURONTIN) CAP PO SCH (20:12)
[2018-11-02] MEDS: ZOLPIDEM 5 MG (AMBIEN) TAB PO PRN (22:45)
[2018-11-03 06:00] VITALS: BP 136/77
[2018-11-03] MEDS: LEVOTHYROXINE 50 MCG (LEVOTHROID) TAB PO SCH (06:28)
[2018-11-03] MEDS: VENLAFAXINE 50 MG (EFFEXOR) TABLET PO SCH ×2 (06:29→16:15)
[2018-11-03] MEDS: PANTOPRAZOLE 40 MG (PROTONIX) TAB PO SCH (06:29)
[2018-11-03] MEDS: CALCIUM CARB + VIT D 600 MG (CALCARB + D) TAB PO SCH ×2 (06:29→16:15)
[2018-11-03] MEDS: BETHANECHOL 25 MG (URECHOLINE) TAB PO SCH ×4 (06:29→20:18)
[2018-11-03] MEDS: LINACLOTIDE 290 MCG (LINZESS) CAPSULE PO SCH (07:49)
[2018-11-03] MEDS: RT-ADVAIR HFA 45/21 MCG PER PUFF IH SCH ×2 (09:04→19:30)
[2018-11-03 09:15] VITALS: BP 127/68
[2018-11-03] MEDS: OLANZapine 5 MG (ZyPREXA) TAB PO SCH (09:17)
[2018-11-03] MEDS: ESTROGENS CONJUGATED 0.45 MG (PREMARIN) TAB PO SCH (09:18)
[2018-11-03] MEDS: LORATADINE (CLARITIN) 10 MG TAB PO SCH (09:18)
[2018-11-03] MEDS: busPIRone 10 MG (BUSPAR) TAB PO SCH ×3 (09:18→20:17)
[2018-11-03] MEDS: POLYETHYLENE GLYCOL 17 GM (MIRALAX) PACK PO SCH ×2 (09:19→20:23)
[2018-11-03] MEDS: IBUPROFEN 800 MG (MOTRIN) TAB PO SCH ×3 (09:19→20:18)
[2018-11-03] MEDS: ENOXAPARIN 30 MG/0.3 ML (LOVENOX) SYR SC SCH ×2 (09:21→20:21)
[2018-11-03] MEDS: IPRATROPIUM 0.03% NS SCH ×3 (10:15→20:23)
[2018-11-03] MEDS: FLUTICASONE NASAL SPRAY (FLONASE) 16 GM BTL NS SCH ×2 (10:15→20:22)
--- NOTE | 2018-11-03 10:30 | Progress Note - Urology ---
Progress Note-Urology Progress Notes/Assess & Plan Progress/Assessment & Plan STILL NO VOIDING. KEEP SAME Final Diagnosis RETENTION FRANCE LEE MD Nov 03, 2018 10:30
--- NOTE | 2018-11-03 11:24 | NUR ---
Dr. Khan here with orders to increase Urecholine to 50 MG PO AC&HS.
--- NOTE | 2018-11-03 11:39 | PM&R Progress Note ---
Subjective HPI/CC On Admission Date Seen by Provider: Nov 03, 2018 Time Seen by Provider: 09:30 CC: Debility following sacral fracture and subsequent partial paraplegia Pt is a 67 y/o WF w/ hx of Bipolar d/o, expressive aphasia, HTN, and asthma, who is here from [facility] in [place], [place] after recent fall 2/2 vertigo and unsteady gait at her home which resulted in nondisplaced fracture of the left inferior and superior pubic ramus, a sacral fracture with mild displacement of 1 cm, a mild T12 compression fracture, and posterior fracture of right 9th rib. Pt was admitted to ICU at the time and ortho surg was consulted. Pt was stabilized and sent to [facility] at a tertiary higher level care incase. Sacroiliac joints were bridged w/ 2 surgical screws. Rates LLE pain 10/10 at this time. Also c/o muscle spasms in RLE. says Flexeril is not helping. Pt currently has a fisher in place, recent CT showed distended bladder, no hematuria. currently No focal deficits. Pt has chronic constipation and is intermittently incontinent of bowels. Had regular bladder function prior to fall. Reports hx of recent falls as well. Prior to this encounter, pt lived alone at home and ambulated using a walker. Pt has a daughter who lives 23 miles away from her and is able to visit her MWF. 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 Pt was discharged from [facility] with the following meds: PERCOCET 5-325MG 1 TAB Q6H PRN CALCIUM +D 500-200 BID DOCUSATE-SENNA 50-8.6MG 2 TABS HS LOVENOX 30MG SUBQ Q12 HOURS X 14 DAYS Pt has seen: PCP Dr. Kaitlynn Martinez Urologist Dr. Harrell (has f/u on 10/29/18) Ortho Dr. Mccullough (has f/u on 10/29/18) Per Brandie Moreno [facility] Chief complaint: Debility following sacral fracture. HPI: This is a 67yoWF clinic Pt of [facility] that I briefly saw two weeks ago when she was admitted over the weekend after suffering a fall and sustaining a sacral fracture. It became unstable so orthopedic surgery recommended transfer to higher level of care to [facility] and I supported that move. She did undergo surgery to repair that by trauma surgery orthopedics and a screw was placed for stability. She is still having significant neurological deficit since that was completed, remains incontinent of stool and neurogenic bladder retention requiring fisher catheter administration. We will work on transfers to a wheelchair. We encourage her to be up in a chair. Next week appointment scheduled with urology and trauma surgery and it will be assessed at that point regarding additional recommendations. Percocet is barely used now, will rely mostly on Tylenol and did not receive any transfusion, Hgb of 8.7 and is not on any antibiotics. Prior level of functioning was independent without the use of assistive devices so will work towards wheelchair mobility since likely the neurological deficit could be permanent. 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 Review of Systems General: Fatigue Neurological: Weakness, Numbness, Incoordination Objective Exam Vital Signs Vital Signs Date Time Temp Pulse Resp B/P (MAP) Pulse Ox O2 Delivery O2 Flow Rate FiO2 11/03/18 20:24 Room Air 11/03/18 17:42 36.8 75 18 148/80 (102) 95 Capillary Refill : Less Than 3 Seconds General Appearance: No Apparent Distress, WD/WN, Anxious, Chronically ill HEENT: PERRL/EOMI, Normal ENT Inspection, Pharynx Normal Neck: Full Range of Motion, Normal Inspection, Non Tender, Supple Respiratory: Chest Non Tender, Lungs Clear, Normal Breath Sounds, No Accessory Muscle Use, No Respiratory Distress Cardiovascular: Regular Rate, Rhythm, No Edema, No Gallop, No JVD, No Murmur, Normal Peripheral Pulses Gastrointestinal: Normal Bowel Sounds, No Organomegaly, No Pulsatile Mass, Soft Extremity: Normal Capillary Refill, Normal Inspection, Non Tender, No Calf Tenderness, No Pedal Edema, Other (strength right lower leg 1/5, left 1/5) Neurologic/Psychiatric: Alert, Oriented x3, Normal 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 FIM Transfers Therapy Code Descriptions/Definitions Functional [place] Measure: 0=Not Assessed/NA 4=Minimal Assistance 1=Total Assistance 5=Supervision or Setup 2=Maximal Assistance 6=Modified [place] 3=Moderate Assistance 7=Complete [place] Therapy Quality Codes: 6 Independent with activity with or without an assistive device 5 Patient requires set up or clean up by helper. Patient completes activity by themselves 4 Supervision or touching assist (CGA). [place] provide cues , steadying assist 3 The helper provides less than half the effort to complete the activity 2 The helper provides more than half the effort to complete the activity 1 Dependent. The helper does all the effort to complete an activity 7 Patient refused to complete or attempt activity 9 The patient did not perform the activity before the current illness or injury 88 Not attempted due to Medical conditions or safety concerns Transfers (B, C, W/C) (FIM): 3 Scootin Rollin Roll Left to Right (QC): 1 Supine to/from Sit: 3 Sit to/from Stand: 0 (NWB bilateral LE) Sit to Lying (QC): 3 Sit to Stand (QC): 88 Chair/Slk-rg-Ekozi Xfer(QC): 88 Bed to/from Chair: 3 Car Transfer (QC): 88 Gait Training Does the Patient Walk?: No and Walking Goal NOT indicated Wheelchair Training Does the Pt Use a Wheelchair?: Yes Wheelchair (FIM): 5 Wheelchair Distance: 3=150 ft Distance: 400' Wheelchair Level of Assist: 5 Wheel 50 ft with 2 turns (QC): 5 Wheel 150 ft (QC): 5 Type of Wheelchair: Manual Stair Training Stairs (FIM): 0 1 Step (curb) (QC): 88 4 Steps (QC): 88 12 Steps (QC): 88 Balance Picking up an Object (QC): 4 Mental Status/Objective Comprehension: 5 Expression: 4 Social Interaction: 6 Problem Solvin Memory: 3 ADL-Treatment Feedin (Pt able to complete own set up and use regular utensils to eat.) Eating (QC): 6 Groomin (Pt able to brush hair and teeth sitting in w/c at sink. ) Oral Hygiene (QC): 6 Bathin (Pt able to complete sponge bath laying in bed. Pt able to wash, rinse and dry self. Pt rolled side to side wash buttocks by self. Pt required VC's to wash buttocks and LE. Set up. ) Bathing Location: L Arm, R Arm, L Upper Leg, R Upper Leg, L Lower Leg (including foot), R Lower Leg (including foot), Chest, Abdomen, Buttocks, Perineal Area Shower/Bathe Self (QC): 5 Upper Extremity Dressin (Pt able to doff hospital gown by self. Pt able to don bra and shirt by self sitting EOB. Set up. ) Upper Body Dressing (QC): 5 Lower Extremity Dressin (Pt able to don briefs and pants by self laying in bed. Pt able to don socks by self. Set up. ) Lower Body Dressing (QC): 5 On/Off Footwear (QC): 3 (Pt able to don R shoe by self. Pt required assist to don L shoe. ) Toiletin Toileting Hygiene (QC): 1 Toilet/Commode Transfer: 1 (Using shower chair with cutout, pt uses sliding board transfer with assist x2.) Toilet Transfer (QC): 1 Shower: 3 (Pt required assist to place sliding board. VC's needed to hike hip for sliding board placement. Pt required VC's to hike R leg up while ) Assessment/Plan Assessment and Plan Assess & Plan/Chief Complaint Assessment: Debility following sacral fracture and spinal cord injury with flaccidity or spasticity of the lower extremities Bipolar Anxiety Urinary retention due to neurogenic bladder Fisher cath likely will need in/out caths versus SP catheter Fecal incontinence Anemia Chest pain chronic Muscle spasms Plan: Monitor pain Monitor bowel and bladder Baclofen for muscle spasms and increase the dose IRF protocol Urology appreciated Try to wean off pain medication Low dose of hydroxyzine for anxiety she has a benzodiazepine dependency history Trauma surgery rescheduled Decrease pain meds (1) Closed fracture of sacrum Status: Acute Qualifiers: Encounter type: subsequent encounter Zone of sacrum fracture: unspecified portion of sacrum Fracture healing: with nonunion Qualified Codes: S32.10XK - Unspecified fracture of sacrum, subsequent encounter for fracture with nonunion (2) Hyponatremia Status: Acute (3) Traumatic retroperitoneal hematoma Status: Acute Qualifiers: Encounter type: subsequent encounter Qualified Codes: S36.892D - Contusion of other intra-abdominal organs, subsequent encounter (4) Sacral fracture, closed Status: Acute (5) Right rib fracture Status: Acute Qualifiers: Encounter type: subsequent encounter Rib fracture type: multiple ribs Fracture type: closed Fracture healing: with routine healing Qualified Codes: S22.41XD - Multiple fractures of ribs, right side, subsequent encounter for fracture with routine healing (6) Rhabdomyolysis Status: Resolved Resolution Date/Time: 10/25/18 @ 06:25 (7) Fall Status: Acute Qualifiers: Encounter type: subsequent encounter Qualified Codes: W19.XXXD - Unspecified fall, subsequent encounter (8) Fisher catheter in place Status: Acute (9) Neurogenic bladder Status: Acute (10) HTN (hypertension) Status: Chronic Qualifiers: Hypertension type: essential hypertension Qualified Codes: I10 - Essential (primary) hypertension (11) Hypothyroidism Status: Chronic Qualifiers: Hypothyroidism type: acquired Qualified Codes: E03.9 - Hypothyroidism, unspecified (12) Anemia Status: Chronic Qualifiers: Anemia type: unspecified type Qualified Codes: D64.9 - Anemia, unspecified (13) Fecal incontinence Status: Acute Qualifiers: Fecal incontinence type: unspecified Qualified Codes: R15.9 - Full in continence of feces (14) Chest pain Status: Chronic Qualifiers: Chest pain type: unspecified Qualified Codes: R07.9 - Chest pain, unspecified (15) Bipolar 1 disorder Status: Chronic (16) MGUS (monoclonal gammopathy of unknown significance) Status: Chronic (17) COPD (chronic obstructive pulmonary disease) Status: Chronic (18) DVT prophylaxis Status: Acute ARIELA ESPINOZA DO Nov 03, 2018 11:39
[2018-11-03] MEDS: TAMSULOSIN 0.4 MG (FLOMAX) CAP PO SCH (17:41)
[2018-11-03 17:42] VITALS: BP 148/80
[2018-11-03] MEDS: BACLOFEN 10 MG (LIORESAL) TAB PO PRN (17:49)
[2018-11-03] MEDS: GABAPENTIN 400 MG (NEURONTIN) CAP PO SCH (20:17)
[2018-11-03] MEDS: MONTELUKAST 10 MG (SINGULAIR) TAB PO SCH (20:17)
[2018-11-03] MEDS: ISOSORBIDE MONONITRATE 60 MG (IMDUR) TAB PO SCH (20:18)
[2018-11-03] MEDS: SENNA W/DOCUSATE (SENOKOT S) TABLET PO SCH (20:18)
[2018-11-03] MEDS: oxyCODONE/APAP 5/325MG (PERCOCET 5) TABLET PO PRN (21:59)
[2018-11-03] MEDS: ZOLPIDEM 5 MG (AMBIEN) TAB PO PRN (23:00)
--- NOTE | 2018-11-03 23:00 | NUR ---
UNABLE TO VOID, BUT COULD TELL BLADDER WAS FULL. SEE BLADDER SCAN/STRAIGHT CATH INTERVENTION. MEDICATED WITH AMBIEN AND THEN ROLLED SELF TO STOMACH TO GET OFF TAILBONE. CONTINUES TO STATE TAILBONE PAIN IS MAIN COMPLAINT.
--- NOTE | 2018-11-04 04:15 | NUR ---
WAS HAPPY SHE SLEPT STRAIGHT THROUGH UNTIL NOW. COMPLAIN MUSCLE SPASMS AND MEDICATED WITH BACLOFEN.
[2018-11-04] MEDS: BACLOFEN 10 MG (LIORESAL) TAB PO PRN ×2 (04:19→09:57)
[2018-11-04 05:18] LABS: BASOPHILS # (AUTO) 0.1 10^3/uL (0.0-0.1); BASOPHILS % (AUTO) 1 % (0-10); EOSINOPHILS # (AUTO) 0.4 10^3/uL (0.0-0.3); EOSINOPHILS % (AUTO) 8 % (0-10); HEMATOCRIT 27 % (35-52); HEMOGLOBIN 8.6 G/DL (11.5-16.0); LYMPHOCYTES # (AUTO) 2.1 X 10^3 (1.0-4.0); LYMPHOCYTES % (AUTO) 46 % (12-44); MEAN CORPUSCULAR HEMOGLOBIN 34 PG (25-34); MEAN CORPUSCULAR HGB CONC 33 G/DL (32-36); MEAN CORPUSCULAR VOLUME 104 FL (80-99); MEAN PLATELET VOLUME 8.5 FL (7.4-10.4); MONOCYTES # (AUTO) 0.5 X 10^3 (0.0-1.0); MONOCYTES % (AUTO) 11 % (0-12); NEUTROPHILS # (AUTO) 1.5 X 10^3 (1.8-7.8); NEUTROPHILS % (AUTO) 33 % (42-75); PLATELET COUNT 368 10^3/uL (130-400); RED CELL DISTRIBUTION WIDTH 14.8 % (10.0-14.5); WHITE BLOOD COUNT 4.5 10^3/uL (4.3-11.0)
[2018-11-04 05:25] VITALS: BP 168/79
[2018-11-04 05:48] LABS: ALANINE AMINOTRANSFERASE 24 U/L (0-55); ALBUMIN 2.6 GM/DL (3.2-4.5); ALKALINE PHOSPHATASE 144 U/L (40-136); BILIRUBIN,TOTAL 0.3 MG/DL (0.1-1.0); BUN/CREATININE RATIO 18; CALCIUM 8.7 MG/DL (8.5-10.1); CARBON DIOXIDE 26 MMOL/L (21-32); CHLORIDE 104 MMOL/L (98-107); CREATININE SERUM 0.74 MG/DL (0.60-1.30); GFR ESTIMATED > 60; GLUCOSE 82 MG/DL (70-105); POTASSIUM 4.3 MMOL/L (3.6-5.0); SODIUM 137 MMOL/L (135-145); TOTAL PROTEIN 7.5 GM/DL (6.4-8.2)
[2018-11-04] MEDS: CALCIUM CARB + VIT D 600 MG (CALCARB + D) TAB PO SCH ×2 (06:09→17:40)
[2018-11-04] MEDS: BETHANECHOL 25 MG (URECHOLINE) TAB PO SCH ×4 (06:09→21:52)
[2018-11-04] MEDS: LEVOTHYROXINE 50 MCG (LEVOTHROID) TAB PO SCH (06:09)
[2018-11-04] MEDS: PANTOPRAZOLE 40 MG (PROTONIX) TAB PO SCH (06:09)
[2018-11-04] MEDS: VENLAFAXINE 50 MG (EFFEXOR) TABLET PO SCH ×2 (06:09→17:40)
[2018-11-04] MEDS: LINACLOTIDE 290 MCG (LINZESS) CAPSULE PO SCH (06:11)
--- NOTE | 2018-11-04 08:09 | Occupational Ther Daily Note ---
OT Current Status-Daily Note Subjective Pt alert laying in bed. Pt agrees to therapy. Pt needs reassurance throughout therapy session. Pt stated that she convinced herself that she was never going to walk again. HUFFMAN reassured pt that was non-wt. bearing due to healing bones then at that time pt would be able to bear wt on LE's. Mental Status/Objective Patient Orientation: Person, Place, Time, Situation Therapy Code Descriptions/Definitions Functional [place] Measure: 0=Not Assessed/NA 4=Minimal Assistance 1=Total Assistance 5=Supervision or Setup 2=Maximal Assistance 6=Modified [place] 3=Moderate Assistance 7=Complete [place] Attachments: Chest Tube ADL-Treatment Pt laying in bed to cleanse self after min incontinent BM. Pt able to reach area while laying but was inefficient. Pt required assist to ensure pt was cleansed properly. Therapy Code Descriptions/Definitions Functional [place] Measure: 0=Not Assessed/NA 4=Minimal Assistance 1=Total Assistance 5=Supervision or Setup 2=Maximal Assistance 6=Modified [place] 3=Moderate Assistance 7=Complete [place] Therapy Quality Codes: 6 Independent with activity with or without an assistive device 5 Patient requires set up or clean up by helper. Patient completes activity by themselves 4 Supervision or touching assist (CGA). [place] provide cues , steadying assist 3 The helper provides less than half the effort to complete the activity 2 The helper provides more than half the effort to complete the activity 1 Dependent. The helper does all the effort to complete an activity 7 Patient refused to complete or attempt activity 9 The patient did not perform the activity before the current illness or injury 88 Not attempted due to Medical conditions or safety concerns Grooming (FIM): 6 (Pt able to brush hair and teeth at sink sitting w/c. Safety concerns due to STM. ) Oral Hygiene (QC): 6 Bathing (FIM): 5 (Pt requires shower chair with cutout, long handled sponge, and hand held shower head. Pt required VC's to wash hair and buttocks due to STM. Pt able to wash LE using AE. Pt able to rinse and dry self. ) Bathing Location: L Arm, R Arm, L Upper Leg, R Upper Leg, L Lower Leg (including foot), R Lower Leg (including foot), Chest, Abdomen, Buttocks, Perine al Area Shower/Bathe Self (QC): 4 (Safety concerns due to STM.) Upper Body (FIM): 5 (Pt able to doff hospital gown by self. Pt able to thread arms and head through sleeves by self. Set up. ) Upper Body Dressing (QC): 4 (safety concerns due to STM. ) Lower Body Dressing (FIM): 5 (Pt able to don/doff briefs and socks by self laying on bed. Set up. ) Lower Body Dressing (QC): 4 (Supervision. Safety concerns due to STM. ) On/Off Footwear (QC): 5 Transfers (B, C, W/C) (FIM): 4 (Pt requires sliding board placement. Pt requires VC's to for hand placement. CGA while pt is using sliding board. ) Shower Transfer(FIM): 1 (Using shower chair with cutout, pt transported to shower. Min A with max encouragement for slide board transfer from bed to shower chair.) Other Treatment Pt propelled self using w/c to closet and participated in IADL activity hanging pts clothes on hangers and required assist to placet hem in closet. Pt sitting in w/c, call light and phone in reach. Pts needs met. OT Short Term Goals Short Term Goals Time Frame: Nov 07, 2018 Eating(FIM): 5 Grooming(FIM): 5 Bathing(FIM): 4 Upper Body Dressing(FIM): 4 Lower Body Dressing(FIM): 3 Toileting(FIM): 3 Transfers (B,C,W/C) (FIM): 3 (slide board bed<>w/c) Toilet/Commode Transfer(FIM): 3 Additional Short Term Goals: 1-Demonstrate ADL Tasks, 2-Verbalize Understanding, 3-ImproveStrength/Abilio 1=Demonstrate adherence to instructed precautions during ADL tasks. 2=Patient will verbalize/demonstrate understanding of assistive devices/modifications for ADL. 3=Patient will improve strength/tolerance for activity to enable patient to perf orm ADL's. OT Fci Goals Fci Goals Time Frame: Nov 21, 2018 Eating (FIM): 6 Eating (QC): 6 Groomin Oral Hygiene (QC): 5 Bathing(FIM): 4 Shower/Bathe Self (QC): 4 Upper Body Dressing(FIM): 5 Upper Body Dressing (QC): 5 Lower Body Dressing(FIM): 5 Lower Body Dressing (QC): 5 On/Off Footwear (QC): 5 Toileting(FIM): 5 Toileting Hygiene (QC): 5 Transfers (B,C,W/C) (FIM): 5 Toilet/Commode Transfer(FIM): 5 Toilet/Commode Transfer (QC): 5 Shower Transfer(FIM): 3 Additional Goals: 1-Demonstrate ADL Tasks, 2-Verbalize Understanding, 3- ImproveStrength/Abilio 1=Demonstrate adherence to instructed precautions during ADL tasks. 2=Patient will verbalize/demonstrate understanding of assistive devices/mo difications for ADL. 3=Patient will improve strength/tolerance for activity to enable patient to perform ADL's. OT Education/Plan Problem List/Assessment Assessment: Decreased Activ Tolerance, Decreased Safety Aware, Decreased UE Strength, Impaired Cognition, Impaired Self-Care Skills Discharge Recommendations Plan/Recommendations: Continue POC Treatment Plan/Plan of Care Patient would benefit from OT for education, treatment and training to promote independence in ADL's, mobility, safety and/or upper extremity function for ADL's. Plan of Care: ADL Retraining, Functional Mobility, Group Exercise/Act as Ind, UE Funct Exercise/Act Treatment Duration: Nov 21, 2018 Frequency: At least 5 of 7 days/Wk (IRF) Estimated Hrs Per Day: 1.5 hours per day Agreement: Yes Rehab Potential: Fair Time/GCodes Start Time: 06:50 Stop Time: 08:05 Total Time Billed (hr/min): 75 Billed Treatment Time 1 visit- ADL 4 (60 min) FA (15 min) NATE PROCTOR Nov 04, 2018 08:09
[2018-11-04] MEDS: RT-ADVAIR HFA 45/21 MCG PER PUFF IH SCH ×2 (09:18→20:20)
[2018-11-04 09:28] VITALS: BP 119/61
[2018-11-04] MEDS: ESTROGENS CONJUGATED 0.45 MG (PREMARIN) TAB PO SCH (09:34)
[2018-11-04] MEDS: busPIRone 10 MG (BUSPAR) TAB PO SCH ×3 (09:34→21:53)
[2018-11-04] MEDS: LORATADINE (CLARITIN) 10 MG TAB PO SCH (09:34)
[2018-11-04] MEDS: IBUPROFEN 800 MG (MOTRIN) TAB PO SCH ×3 (09:34→21:55)
[2018-11-04] MEDS: OLANZapine 5 MG (ZyPREXA) TAB PO SCH (09:34)
[2018-11-04] MEDS: ENOXAPARIN 30 MG/0.3 ML (LOVENOX) SYR SC SCH ×2 (09:35→21:57)
[2018-11-04] MEDS: FLUTICASONE NASAL SPRAY (FLONASE) 16 GM BTL NS SCH ×2 (09:36→21:52)
[2018-11-04] MEDS: POLYETHYLENE GLYCOL 17 GM (MIRALAX) PACK PO SCH ×2 (09:37→21:53)
[2018-11-04] MEDS: IPRATROPIUM 0.03% NS SCH ×3 (09:37→21:52)
--- NOTE | 2018-11-04 10:06 | PM&R Progress Note ---
Subjective HPI/CC On Admission Date Seen by Provider: Nov 04, 2018 Time Seen by Provider: 09:00 CC: Debility following sacral fracture and subsequent partial paraplegia Pt is a 67 y/o WF w/ hx of Bipolar d/o, expressive aphasia, HTN, and asthma, who is here from [facility] in [place], [place] after recent fall 2/2 vertigo and unsteady gait at her home which resulted in nondisplaced fracture of the left inferior and superior pubic ramus, a sacral fracture with mild displacement of 1 cm, a mild T12 compression fracture, and posterior fracture of right 9th rib. Pt was admitted to ICU at the time and ortho surg was consulted. Pt was stabilized and sent to [place] at a tertiary higher level care [facility]. Sacroiliac joints were bridged w/ 2 surgical screws. Rates LLE pain 10/10 at this time. Also c/o muscle spasms in RLE. says Flexeril is not helping. Pt currently has a fisher in place, recent CT showed distended bladder, no hematuria. currently No focal deficits. Pt has chronic constipation and is intermittently incontinent of bowels. Had regular bladder function prior to fall. Reports hx of recent falls as well. Prior to this encounter, pt lived alone at home and ambulated using a walker. Pt has a daughter who lives 23 miles away from her and is able to visit her MWF. 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 Pt was discharged from [facility] [place] with the following meds: PERCOCET 5-325MG 1 TAB Q6H PRN CALCIUM +D 500-200 BID DOCUSATE-SENNA 50-8.6MG 2 TABS HS LOVENOX 30MG SUBQ Q12 HOURS X 14 DAYS Pt has seen: PCP Dr. Kaitlynn Martinez Urologist Dr. Harrell (has f/u on 10/29/18) Ortho Dr. Mccullough (has f/u on 10/29/18) Per Brandie Moreno [facility] Chief complaint: Debility following sacral fracture. HPI: This is a 67yoWF clinic Pt of [facility] that I briefly saw two weeks ago when she was admitted over the weekend after suffering a fall and sustaining a sacral fracture. It became unstable so orthopedic surgery recommended transfer to higher level of care to [place] and I supported that move. She did undergo surgery to repair that by trauma surgery orthopedics and a screw was placed for stability. She is still having significant neurological deficit since that was completed, remains incontinent of stool and neurogenic bladder retention requiring fisher catheter administration. We will work on transfers to a wheelchair. We encourage her to be up in a chair. Next week appointment scheduled with urology and trauma surgery and it will be assessed at that point regarding additional recommendations. Percocet is barely used now, will rely mostly on Tylenol and did not receive any transfusion, Hgb of 8.7 and is not on any antibiotics. Prior level of functioning was independent without the use of assistive devices so will work towards wheelchair mobility since likely the neurological deficit could be permanent. 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 Review of Systems General: Fatigue Musculoskeletal: leg pain Objective Exam Vital Signs Vital Signs Date Time Temp Pulse Resp B/P (MAP) Pulse Ox O2 Delivery O2 Flow Rate FiO2 11/04/18 16:16 36.6 64 14 116/71 (86) 92 Room Air Capillary Refill : Less Than 3 Seconds General Appearance: No Apparent Distress, WD/WN, Anxious, Chronically ill HEENT: PERRL/EOMI, Normal ENT Inspection, Pharynx Normal Neck: Full Range of Motion, Normal Inspection, Non Tender, Supple Respiratory: Chest Non Tender, Lungs Clear, Normal Breath Sounds, No Accessory Muscle Use, No Respiratory Distress Cardiovascular: Regular Rate, Rhythm, No Edema, No Gallop, No JVD, No Murmur, Normal Peripheral Pulses Gastrointestinal: Normal Bowel Sounds, No Organomegaly, No Pulsatile Mass, Soft Extremity: Normal Capillary Refill, Normal Inspection, Non Tender, No Calf Tenderness, No Pedal Edema, Other (strength right lower leg 1/5, left 1/5) Neurologic/Psychiatric: Alert, Oriented x3, Normal 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 FIM Transfers Therapy Code Descriptions/Definitions Functional [place] Measure: 0=Not Assessed/NA 4=Minimal Assistance 1=Total Assistance 5=Supervision or Setup 2=Maximal Assistance 6=Modified [place] 3=Moderate Assistance 7=Complete [place] Therapy Quality Codes: 6 Independent with activity with or without an assistive device 5 Patient requires set up or clean up by helper. Patient completes activity by themselves 4 Supervision or touching assist (CGA). [place] provide cues , steadying assist 3 The helper provides less than half the effort to complete the activity 2 The helper provides more than half the effort to complete the activity 1 Dependent. The helper does all the effort to complete an activity 7 Patient refused to complete or attempt activity 9 The patient did not perform the activity before the current illness or injury 88 Not attempted due to Medical conditions or safety concerns Transfers (B, C, W/C) (FIM): 4 (Pt requires sliding board placement. Pt requires VC's to for hand placement. CGA while pt is using sliding board. ) Scootin Rollin Roll Left to Right (QC): 1 Supine to/from Sit: 3 Sit to/from Stand: 0 (NWB bilateral LE) Sit to Lying (QC): 3 Sit to Stand (QC): 88 Chair/Fuf-mn-[place] Xfer(QC): 88 Bed to/from Chair: 3 Car Transfer (QC): 88 Gait Training Does the Patient Walk?: No and Walking Goal NOT indicated Wheelchair Training Does the Pt Use a Wheelchair?: Yes Wheelchair (FIM): 5 Wheelchair Distance: 3=150 ft Distance: 400' Wheelchair Level of Assist: 5 Wheel 50 ft with 2 turns (QC): 5 Wheel 150 ft (QC): 5 Type of Wheelchair: Manual Stair Training Stairs (FIM): 0 1 Step (curb) (QC): 88 4 Steps (QC): 88 12 Steps (QC): 88 Balance Picking up an Object (QC): 4 Mental Status/Objective Comprehension: 5 Expression: 4 Social Interaction: 6 Problem Solvin Memory: 3 ADL-Treatment Feedin (Pt able to complete own set up and use regular utensils to eat.) Eating (QC): 6 Groomin (Pt able to brush hair and teeth at sink sitting w/c. Safety concerns due to STM. ) Oral Hygiene (QC): 6 Bathin (Pt requires w/c, long handled sponge, and hand held shower head. Pt required VC's to wash hair and buttocks due to STM. Pt able to wash LE using AE. Pt able to rinse and dry self. ) Bathing Location: L Arm, R Arm, L Upper Leg, R Upper Leg, L Lower Leg (including foot), R Lower Leg (including foot), Chest, Abdomen, Buttocks, Perineal Area Shower/Bathe Self (QC): 4 (Safety concerns due to STM.) Upper Extremity Dressin (Pt able to doff hospital gown by self. Pt able to thread arms and head through sleeves by self. Set up. ) Upper Body Dressing (QC): 4 (safety concerns due to STM. ) Lower Extremity Dressin (Pt able to don/doff briefs and socks by self laying on bed. Set up. ) Lower Body Dressing (QC): 4 (Safety concerns due to STM. ) On/Off Footwear (QC): 3 (Pt able to don R shoe by self. Pt required assist to don L shoe. ) Toiletin Toileting Hygiene (QC): 1 Toilet/Commode Transfer: 1 (Using shower chair with cutout, pt uses sliding board transfer with assist x2.) Toilet Transfer (QC): 1 Shower: 3 (Pt required assist to place sliding board. VC's needed to hike hip for sliding board placement. Pt required VC's to hike R leg up while ) Assessment/Plan Assessment and Plan Assess & Plan/Chief Complaint Assessment: Debility following sacral fracture and spinal cord injury with flaccidity or spasticity of the lower extremities Bipolar Anxiety Urinary retention due to neurogenic bladder Fisher cath likely will need in/out caths versus SP catheter Fecal incontinence Anemia Chest pain chronic Muscle spasms Plan: Monitor pain Monitor bowel and bladder Baclofen for muscle spasms and increase the dose IRF protocol Urology appreciated Try to wean off pain medication Low dose of hydroxyzine for anxiety she has a benzodiazepine dependency history Trauma surgery rescheduled for tomorrow Decrease pain meds (1) Closed fracture of sacrum Status: Acute Qualifiers: Encounter type: subsequent encounter Zone of sacrum fracture: unspecified portion of sacrum Fracture healing: with nonunion Qualified Codes: S32.10XK - Unspecified fracture of sacrum, subsequent encounter for fracture with nonunion (2) Hyponatremia Status: Acute (3) Traumatic retroperitoneal hematoma Status: Acute Qualifiers: Encounter type: subsequent encounter Qualified Codes: S36.892D - Contusion of other intra-abdominal organs, subsequent encounter (4) Sacral fracture, closed Status: Acute (5) Right rib fracture Status: Acute Qualifiers: Encounter type: subsequent encounter Rib fracture type: multiple ribs Fracture type: closed Fracture healing: with routine healing Qualified Codes: S22.41XD - Multiple fractures of ribs, right side, subsequent encounter for fracture with routine healing (6) Rhabdomyolysis Status: Resolved Resolution Date/Time: 10/25/18 @ 06:25 (7) Fall Status: Acute Qualifiers: Encounter type: subsequent encounter Qualified Codes: W19.XXXD - Unspecified fall, subsequent encounter (8) Fisher catheter in place Status: Acute (9) Neurogenic bladder Status: Acute (10) HTN (hypertension) Status: Chronic Qualifiers: Hypertension type: essential hypertension Qualified Codes: I10 - Essential (primary) hypertension (11) Hypothyroidism Status: Chronic Qualifiers: Hypothyroidism type: acquired Qualified Codes: E03.9 - Hypothyroidism, unspecified (12) Anemia Status: Chronic Qualifiers: Anemia type: unspecified type Qualified Codes: D64.9 - Anemia, unspecified (13) Fecal incontinence Status: Acute Qualifiers: Fecal incontinence type: unspecified Qualified Codes: R15.9 - Full incontinence of feces (14) Chest pain Status: Chronic Qualifiers: Chest pain type: unspecified Qualified Codes: R07.9 - Chest pain, unspecified (15) Bipolar 1 disorder Status: Chronic (16) MGUS (monoclonal gammopathy of unknown significance) Status: Chronic (17) COPD (chronic obstructive pulmonary disease) Status: Chronic (18) DVT prophylaxis Status: Acute ARIELA ESPINOZA DO Nov 04, 2018 10:06
--- NOTE | 2018-11-04 11:51 | Physical Therapy Daily Note ---
PT Daily Note-Current Subjective Patient in WC at bedside pre tx, agrees to PT, has no complaints of pain. Appearance Patient in recliner post tx with nurse call, phone, tray, all needs met. Mental Status Patient Orientation: Person, Place, Situation Transfers Therapy Code Descriptions/Definitions Functional [place] Measure: 0=Not Assessed/NA 4=Minimal Assistance 1=Total Assistance 5=Supervision or Setup 2=Maximal Assistance 6=Modified [place] 3=Moderate Assistance 7=Complete [place] Therapy Quality Codes: 6 Independent with activity with or without an assistive device 5 Patient requires set up or clean up by helper. Patient completes activity by themselves 4 Supervision or touching assist (CGA). [place] provide cues , steadying assist 3 The helper provides less than half the effort to complete the activity 2 The helper provides more than half the effort to complete the activity 1 Dependent. The helper does all the effort to complete an activity 7 Patient refused to complete or attempt activity 9 The patient did not perform the activity before the current illness or injury 88 Not attempted due to Medical conditions or safety concerns Transfers (B, C, W/C) (FIM): 4 Bed to/from Chair: 4 Sliding board transfer x3 min assist, needs board placed and taken out, when performing sliding board transfer to the recliner needed min assist to keep from sliding forward off of the board. Cues for hand placement and positioning. Weight Bearing Right Lower Extremity: Right Non Weight Bearing Left Lower Extremity: Left Non Weight Bearing Wheelchair Training Does the Pt Use a Wheelchair?: Yes Wheelchair (FIM): 5 Distance: 150'x2 Wheelchair Level of Assist: 5 Type of Wheelchair: Manual Very slow, needs cues for direction. Switched out WC with another that has fold back arm rests which are easier for her to manipulate. Patient has trouble coordinating both UE to propel WC especially with turns but can do so with extra time. Exercises Supine Ex: Ankle pumps, Quad Set, Glut sets, Heel Slides, Short Arc Quads, Straight leg raise, Hip abd/add Supine Reps: 20 hooklying hip abd/add with pillow and RTB x20, hooklying knee fallouts x20 each side, LAQ alternating for 5 min Treatments LE exercise, transfers, WC mobility Assessment Current Status: Fair Progress improving general mobility but definitely needs assist during sliding board transfer for safety PT Short Term Goals Short Term Goals Time Frame: Nov 09, 2018 Transfers (B,C,W/C) (FIM): 3 (slide board bed<>w/c) Wheelchair Distance: 400' PT [employer] Goals Chcf Goals PT Chcf Goals Time Frame: Nov 23, 2018 Transfers (B,C,W/C) (FIM): 4 Sit to Lying (QC): 5 Lying-Sitting on Side/Bed(QC): 5 Sit to Stand (QC): 88 Rollin Roll Left to Right (QC): 5 Chair/Chz-ol-Wzpqb Xfer(QC): 4 Car Transfer (QC): 4 Does the Patient Walk: No and Walking Goal NOT indicated Does the Pt use WC or Scooter?: Yes Wheelchair (FIM): 2 Wheelchair distance (FIM): 6=139-78 ft Distance: 100' Wheelchair Level of Assist: 4 Wheel 50 feet with 2 turns (QC: 5 Stairs (FIM): 0 1 Step (curb) (QC): 88 4 Steps (QC): 88 12 Steps (QC): 88 Picking up an Object (QC): 5 PT Plan Problem List Problem List: Activity Tolerance, Functional Strength, Safety, Balance, Transfer, Bed Mobility, ROM Treatment/Plan Treatment Plan: Continue Plan of Care Treatment Plan: Bed Mobility, Concurrent Therapy, Education, Functional Activity Abilio, Functional Strength, Group Therapy, Safety, Therapeutic Exercise, Transfers Treatment Duration: Nov 23, 2018 Frequency: At least 5 of 7 days/Wk (IRF) Estimated Hrs Per Day: 1.5 hours per day Patient and/or Family Agrees t: Yes Safety Risks/Education Patient Education: Transfer Techniques, Correct Positioning, W/C Management, Safety Issues Teaching Recipient: Patient Teaching Methods: Demonstration, Discussion Response to Teaching: Reinforcement Needed Time/GCodes Time In: 1100 Time Out: 1200 Total Billed Treatment Time: 60 Total Billed Treatment 1 visit [facility] 15' FA 15' EX 30' SANFORD WOODY PT Nov 04, 2018 11:51
[2018-11-04] MEDS ORDERED: BISACODYL 10 MG SUPP (DULCOLAX) ONE (12:19)
[2018-11-04] MEDS: DOCUSATE SODIUM 100 MG (COLACE) CAP PO PRN (12:30)
--- NOTE | 2018-11-04 14:38 | Speech Therapy Daily Note ---
Speech Daily Progress Note Subjective Date Seen by Provider: Nov 04, 2018 Time Seen by Provider: 00:30 The patient was resting in her wheelchair when I entered her room. The patient was very proud to report that she had almost walked today. Objective The patient completed a series of problem solving questions related to her daily needs with 85% given minimal cues. Assessment Assessment Current Status: Good Progress Treatment Plan Continue Plan of Care Communication Comprehension: 5 Expression: 4 Social Cognition Social Interaction: 6 Problem Solvin Memory: 3 Speech Short Term Goals Short Term Goals Short Term Goals 1) The patient will complete memory tasks with 80% or greater with minimal cues. 2) The patient will complete problem solving tasks with 80% or greater with minimal cues. 3) The patient will complete safety awareness tasks with 80% or greater with minimal cues. Speech Care Home Goals Tip Puncher Goals The patient will improve cognitive skills in order to return home safely. Speech-Plan Patient/Family Goals Patient/Family Goals: The patient plans to go home, however since she lives alone she will most likely have to go to a residential until she can be more independent. Treatment Plan Speech Therapy Treatment Plan: Continue Plan of Care Patient has an 8:15 follow up orthopedic appt tomorrow in [place], [place]. Treatment Duration: Nov 08, 2018 Frequency: 5 times per week Estimated Hrs Per Day: .5 hour per day Rehab Potential: Fair Barriers to Learning: Patient's medical/physical status Pt/Family Agrees to Plan: Yes Safety Risks/Education Teaching Recipient: Patient Teaching Methods: Demonstration, Discussion Response to Teaching: Verbalize Understanding, Return Demonstration Education Topics Provided: Continued safety within her room as well as upon discharge. Time Speech Therapy Time In: 10:30 Speech Therapy Time Out: 10:45 Total Billed Time: 15 Billed Treatment Time 1K[address]TY [address] ST Nov 04, 2018 14:38
--- NOTE | 2018-11-04 15:10 | Physical Therapy Daily Note ---
PT Daily Note-Current Subjective Pt looking forward to her physician visit tomorrow. Hoping to get a change in WB status. Mental Status Patient Orientation: Person, Place, Time, Situation Transfers Therapy Code Descriptions/Definitions Functional [place] Measure: 0=Not Assessed/NA 4=Minimal Assistance 1=Total Assistance 5=Supervision or Setup 2=Maximal Assistance 6=Modified [place] 3=Moderate Assistance 7=Complete [place] Therapy Quality Codes: 6 Independent with activity with or without an assistive device 5 Patient requires set up or clean up by helper. Patient completes activity by themselves 4 Supervision or touching assist (CGA). [place] provide cues , steadying assist 3 The helper provides less than half the effort to complete the activity 2 The helper provides more than half the effort to complete the activity 1 Dependent. The helper does all the effort to complete an activity 7 Patient refused to complete or attempt activity 9 The patient did not perform the activity before the current illness or injury 88 Not attempted due to Medical conditions or safety concerns Treatment focused on functional transfers to include bed mobility, with scooting and rolling as well as sup to/from sit. Pt able to complete all with SBA. Slide board transfer x 2 to the left and x 2 to the right. Pt required min assist with transfer left (which was also slightly uphill) and was SBA with transfer to the right. Pt able to use UE and scoot without putting weight through her LE; she did require cues/reminders to not WB with the transfer. Weight Bearing Right Lower Extremity: Right Non Weight Bearing Left Lower Extremity: Left Non Weight Bearing Assessment Current Status: Good Progress Slide board transfers improving and needing fewer cues. PT Short Term Goals Short Term Goals Time Frame: Nov 09, 2018 Transfers (B,C,W/C) (FIM): 3 (slide board bed<>w/c) Wheelchair Distance: 150'x2 PT Metal Framer Goals Jail Goals PT Jail Goals Time Frame: Nov 23, 2018 Transfers (B,C,W/C) (FIM): 4 Sit to Lying (QC): 5 Lying-Sitting on Side/Bed(QC): 5 Sit to Stand (QC): 88 Rollin Roll Left to Right (QC): 5 Chair/Him-hi-Ezvqz Xfer(QC): 4 Car Transfer (QC): 4 Does the Patient Walk: No and Walking Goal NOT indicated Does the Pt use WC or Scooter?: Yes Wheelchair (FIM): 2 Wheelchair distance (FIM): 5=568-62 ft Distance: 100' Wheelchair Level of Assist: 4 Wheel 50 feet with 2 turns (QC: 5 Stairs (FIM): 0 1 Step (curb) (QC): 88 4 Steps (QC): 88 12 Steps (QC): 88 Picking up an Object (QC): 5 PT Plan Problem List Problem List: Activity Tolerance, Functional Strength, Safety, Balance, Transfer, Bed Mobility Treatment/Plan Treatment Plan: Continue Plan of Care Treatment Plan: Bed Mobility, Concurrent Therapy, Education, Functional Activity Abilio, Functional Strength, Group Therapy, Safety, Therapeutic Exercise, Transfers Treatment Duration: Nov 23, 2018 Frequency: At least 5 of 7 days/Wk (IRF) Estimated Hrs Per Day: 1.5 hours per day Patient and/or Family Agrees t: Yes Safety Risks/Education Patient Education: Transfer Techniques Teaching Recipient: Patient Teaching Methods: Demonstration, Discussion Response to Teaching: Return Demonstration, Reinforcement Needed Discharge Recommendations Therapy Discharge Recommendati: Post Acute PT Time/GCodes Time In: 1430 Time Out: 1500 Total Billed Treatment Time: 30 Total Billed Treatment visit FA 30 NATE GRIMES PT Nov 04, 2018 15:10
[2018-11-04 16:16] VITALS: BP 116/71
[2018-11-04] MEDS: TAMSULOSIN 0.4 MG (FLOMAX) CAP PO SCH (17:45)
--- NOTE | 2018-11-04 19:23 | NUR ---
bedside report received from CARLIN DAMON, assume care of pt
[2018-11-04 21:52] VITALS: BP 123/81
[2018-11-04] MEDS: MONTELUKAST 10 MG (SINGULAIR) TAB PO SCH (21:53)
[2018-11-04] MEDS: SENNA W/DOCUSATE (SENOKOT S) TABLET PO SCH (21:53)
[2018-11-04] MEDS: GABAPENTIN 400 MG (NEURONTIN) CAP PO SCH (21:54)
[2018-11-04] MEDS: ISOSORBIDE MONONITRATE 60 MG (IMDUR) TAB PO SCH (21:54)
--- NOTE | 2018-11-04 21:55 | NUR ---
pt refused Senokot & miralax, c/o pain level 9/10 on numeric scale, requests only Ultram 50mg
--- NOTE | 2018-11-04 21:56 | NUR ---
assessments & interventions completed, see assessments & interventions
--- NOTE | 2018-11-04 22:40 | NUR ---
resting quietly in bed, pain level 0/10 on flacc scale
[2018-11-04] MEDS: oxyCODONE/APAP 5/325MG (PERCOCET 5) TABLET PO PRN (23:15)
[2018-11-04] MEDS: ZOLPIDEM 5 MG (AMBIEN) TAB PO PRN (23:15)
--- NOTE | 2018-11-04 23:15 | NUR ---
c/o pain level 9/10 on numeric scale, given Percocet 5/325 1 tab & Ambien 5mg
--- NOTE | 2018-11-04 23:45 | NUR ---
resting quietly in bed, pain level 0/10 on flacc scale
--- NOTE | 2018-11-05 04:50 | NUR ---
bladder scan showed 331 ml
[2018-11-05 05:16] VITALS: BP 148/79
--- NOTE | 2018-11-05 06:00 | NUR ---
straight cath & received 300ml clear yellow urine
[2018-11-05] MEDS: LEVOTHYROXINE 50 MCG (LEVOTHROID) TAB PO SCH (06:17)
[2018-11-05] MEDS: BETHANECHOL 25 MG (URECHOLINE) TAB PO SCH ×4 (06:17→21:45)
[2018-11-05] MEDS: CALCIUM CARB + VIT D 600 MG (CALCARB + D) TAB PO SCH ×2 (06:18→16:48)
[2018-11-05] MEDS: LINACLOTIDE 290 MCG (LINZESS) CAPSULE PO SCH (06:18)
[2018-11-05] MEDS: PANTOPRAZOLE 40 MG (PROTONIX) TAB PO SCH (06:18)
[2018-11-05] MEDS: VENLAFAXINE 50 MG (EFFEXOR) TABLET PO SCH ×2 (06:18→16:49)
--- NOTE | 2018-11-05 07:20 | NUR ---
bedside report given to URSZULA DAMON
[2018-11-05] MEDS: LORATADINE (CLARITIN) 10 MG TAB PO SCH (07:53)
[2018-11-05] MEDS: busPIRone 10 MG (BUSPAR) TAB PO SCH ×3 (07:53→21:45)
[2018-11-05] MEDS: ESTROGENS CONJUGATED 0.45 MG (PREMARIN) TAB PO SCH (07:53)
[2018-11-05] MEDS: OLANZapine 5 MG (ZyPREXA) TAB PO SCH (07:54)
[2018-11-05] MEDS: IBUPROFEN 800 MG (MOTRIN) TAB PO SCH ×3 (07:56→21:45)
[2018-11-05] MEDS: ENOXAPARIN 30 MG/0.3 ML (LOVENOX) SYR SC SCH ×2 (07:56→21:50)
--- NOTE | 2018-11-05 08:28 | Occupational Ther Daily Note ---
OT Current Status-Daily Note Subjective Pt alert sitting in bed. Pt agrees therapy. Mental Status/Objective Patient Orientation: Person Therapy Code Descriptions/Definitions Functional [place] Measure: 0=Not Assessed/NA 4=Minimal Assistance 1=Total Assistance 5=Supervision or Setup 2=Maximal Assistance 6=Modified [place] 3=Moderate Assistance 7=Complete [place] ADL-Treatment Pt was confused on the time she was leaving for doctors appointment. Pt was dres sed and showered by nursing before OT. Therapy Code Descriptions/Definitions Functional [place] Measure: 0=Not Assessed/NA 4=Minimal Assistance 1=Total Assistance 5=Supervision or Setup 2=Maximal Assistance 6=Modified [place] 3=Moderate Assistance 7=Complete [place] Therapy Quality Codes: 6 Independent with activity with or without an assistive device 5 Patient requires set up or clean up by helper. Patient completes activity by themselves 4 Supervision or touching assist (CGA). [place] provide cues , steadying assist 3 The helper provides less than half the effort to complete the activity 2 The helper provides more than half the effort to complete the activity 1 Dependent. The helper does all the effort to complete an activity 7 Patient refused to complete or attempt activity 9 The patient did not perform the activity before the current illness or injury 88 Not attempted due to Medical conditions or safety concerns Transfers (B, C, W/C) (FIM): 5 (Pt required placement for sliding board. SBA while pt is using sliding board. Pt has anxiety of hand placement. ) Other Treatment Pt propelled self in w/c to laundry room to grab clothes from dryer. Pt propelled self in w/c to therapy gym. Pt participated in duration 15 min at 20 watt resistance arm bike exercise to increase strength for functional daily tasks. Pt transferred to mat using sliding board. Pt used arms to walk side to side on a mat in both directions while sitting to increase UE strength for functional daily tasks. Pt transferred back to w/c using sliding board to participate in obstacle course to work on w/c mobility and using an AE to pick items up off the floor to increase dynamic sitting balance for w/c independence for functional activity tasks. Pt propelled self back to room. Pt transferred to bed. Nrsg in room to perform bladder scan and give meds. Pt laying in bed, call light and phone in reach, all needs met. OT Short Term Goals Short Term Goals Time Frame: Nov 07, 2018 Eating(FIM): 5 Grooming(FIM): 5 Bathing(FIM): 4 Upper Body Dressing(FIM): 4 Lower Body Dressing(FIM): 3 Toileting(FIM): 3 Transfers (B,C,W/C) (FIM): 3 (slide board bed<>w/c) Toilet/Commode Transfer(FIM): 3 Additional Short Term Goals: 1-Demonstrate ADL Tasks, 2-Verbalize Understanding, 3-ImproveStrength/Abilio 1=Demonstrate adherence to instructed precautions during ADL tasks. 2=Patient will verbalize/demonstrate understanding of assistive devices/modifications for ADL. 3=Patient will improve strength/tolerance for activity to enable patient to perform ADL's. OT Custodial Goals Graduate Civil Engineer Goals Time Frame: Nov 21, 2018 Eating (FIM): 6 Eating (QC): 6 Groomin Oral Hygiene (QC): 5 Bathing(FIM): 4 Shower/Bathe Self (QC): 4 Upper Body Dressing(FIM): 5 Upper Body Dressing (QC): 5 Lower Body Dressing(FIM): 5 Lower Body Dressing (QC): 5 On/Off Footwear (QC): 5 Toileting(FIM): 5 Toileting Hygiene (QC): 5 Transfers (B,C,W/C) (FIM): 5 Toilet/Commode Transfer(FIM): 5 Toilet/Commode Transfer (QC): 5 Shower Transfer(FIM): 3 Additional Goals: 1-Demonstrate ADL Tasks, 2-Verbalize Understanding, 3-Im proveStrength/Abilio 1=Demonstrate adherence to instructed precautions during ADL tasks. 2=Patient will verbalize/demonstrate understanding of assistive devices/modifications for ADL. 3=Patient will improve strength/tolerance for activity to enable patient to perform ADL's. OT Education/Plan Problem List/Assessment Assessment: Decreased UE Strength Discharge Recommendations Plan/Recommendations: Continue POC Treatment Plan/Plan of Care Patient would benefit from OT for education, treatment and training to promote independence in ADL's, mobility, safety and/or upper extremity function for ADL's. Plan of Care: ADL Retraining, Functional Mobility, Group Exercise/Act as Ind, UE Funct Exercise/Act Treatment Duration: Nov 21, 2018 Frequency: At least 5 of 7 days/Wk (IRF) Estimated Hrs Per Day: 1.5 hours per day Agreement: Yes Rehab Potential: Fair Time/GCodes Start Time: 06:45 Stop Time: 08:00 Total Time Billed (hr/min): 75 Billed Treatment Time 1 visit- EX 4 (60 min) FA 1 (15 min) NATE PROCTOR Nov 05, 2018 08:28
--- NOTE | 2018-11-05 08:49 | Physical Therapy Progress Note ---
Therapy Progress Note Patient left at 8:00 this morning for a doctor appointment in [place], [place]. SANFORD WOODY PT Nov 05, 2018 08:49
[2018-11-05] MEDS: FLUTICASONE NASAL SPRAY (FLONASE) 16 GM BTL NS SCH ×2 (09:00→21:45)
[2018-11-05] MEDS: POLYETHYLENE GLYCOL 17 GM (MIRALAX) PACK PO SCH ×2 (09:00→21:45)
[2018-11-05] MEDS: IPRATROPIUM 0.03% NS SCH ×3 (13:00→21:45)
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
--- NOTE | 2018-11-05 15:10 | NUR ---
Received phone call from patient's CM with [employer]. CM states she spoke with patient's daughter about potential discharge plans. According to CM, daughter states patient may admit to [facility], prior to returning home. states she is hopeful patient returns home, with additional caregiver hours and [employer]. Prior to hospitalization patient was receiving 16 hrs/wk; however, states those hours can be increased. Additionally, according to previous visit with patient, she states her daughter would be capable of providing assistance, upon returning home. Will further explore what type and how much assistance patient's daughter could potentially provide. Addendum: 11/05/18 at 1517 by MAY Buzz GRAY CM to be notified once discharge date is established. Felicita [facility] Paul
--- NOTE | 2018-11-05 15:50 | NUR ---
Straight cath performed after bladder scan shows 545 cc. 525 cc of urine obtained from straight cath. Patient tolerated procedure well.
[2018-11-05 17:26] VITALS: BP 125/69
[2018-11-05] MEDS: TAMSULOSIN 0.4 MG (FLOMAX) CAP PO SCH (18:14)
--- NOTE | 2018-11-05 19:20 | NUR ---
bedside report received from URSZULA DAMON, assume care of pt
[2018-11-05] MEDS: RT-ADVAIR HFA 45/21 MCG PER PUFF IH SCH (19:53)
[2018-11-05 21:40] VITALS: BP 135/64
[2018-11-05] MEDS: ISOSORBIDE MONONITRATE 60 MG (IMDUR) TAB PO SCH (21:45)
[2018-11-05] MEDS: GABAPENTIN 400 MG (NEURONTIN) CAP PO SCH (21:45)
[2018-11-05] MEDS: MONTELUKAST 10 MG (SINGULAIR) TAB PO SCH (21:45)
[2018-11-05] MEDS: SENNA W/DOCUSATE (SENOKOT S) TABLET PO SCH (21:45)
--- NOTE | 2018-11-05 21:45 | NUR ---
refused miralax & Senokot, c/o pain level 9/10 on numeric scale, only wants Ultram 50mg
--- NOTE | 2018-11-05 22:25 | NUR ---
resting quietly in bed, pain level 0/10 on flacc scale
[2018-11-05] MEDS: oxyCODONE/APAP 5/325MG (PERCOCET 5) TABLET PO PRN (23:25)
--- NOTE | 2018-11-05 23:25 | NUR ---
c/o pain level 10/10 on numeric scale, Percocet 5/325 1 tab & Ambien 5mg given
[2018-11-05] MEDS: ZOLPIDEM 5 MG (AMBIEN) TAB PO PRN (23:26)
--- NOTE | 2018-11-05 23:30 | NUR ---
bladder scan showed 250ml
--- NOTE | 2018-11-06 00:10 | NUR ---
resting quietly in bed, pain level 0/10 on flacc scale
--- NOTE | 2018-11-06 05:15 | NUR ---
bladder scan showed 374 straight cath & received 300ml cloudy light baltazar colored urine
[2018-11-06 05:49] VITALS: BP 143/81
[2018-11-06] MEDS: BETHANECHOL 25 MG (URECHOLINE) TAB PO SCH ×4 (06:58→21:26)
[2018-11-06] MEDS: CALCIUM CARB + VIT D 600 MG (CALCARB + D) TAB PO SCH ×2 (06:59→16:59)
[2018-11-06] MEDS: LEVOTHYROXINE 50 MCG (LEVOTHROID) TAB PO SCH (06:59)
[2018-11-06] MEDS: VENLAFAXINE 50 MG (EFFEXOR) TABLET PO SCH ×2 (06:59→16:59)
[2018-11-06] MEDS: PANTOPRAZOLE 40 MG (PROTONIX) TAB PO SCH (06:59)
[2018-11-06] MEDS: LINACLOTIDE 290 MCG (LINZESS) CAPSULE PO SCH (07:01)
--- NOTE | 2018-11-06 07:21 | NUR ---
bedside report given to URSZULA DAMON
[2018-11-06] MEDS: RT-ADVAIR HFA 45/21 MCG PER PUFF IH SCH ×2 (07:34→21:14)
--- NOTE | 2018-11-06 08:04 | Speech Therapy Progress Note ---
Therapy Progress Note Patient did not receive skilled ST on 11/05/18 due to being DEB to [place] for an orthopedic appointment. BILL PUGH Nov 06, 2018 08:04
--- NOTE | 2018-11-06 08:15 | Occupational Ther Daily Note ---
OT Current Status-Daily Note Subjective Pt alert sitting in bed. Pt agrees to therapy. Pt excited about being able to walk in 4 weeks. No c/o pain at this time. Mental Status/Objective Patient Orientation: Person, Place, Time, Situation Therapy Code Descriptions/Definitions Functional [place] Measure: 0=Not Assessed/NA 4=Minimal Assistance 1=Total Assistance 5=Supervision or Setup 2=Maximal Assistance 6=Modified [place] 3=Moderate Assistance 7=Complete [place] ADL-Treatment Pt declined shower today. Pt decided to sponge bathe EOB. Therapy Code Descriptions/Definitions Functional [place] Measure: 0=Not Assessed/NA 4=Minimal Assistance 1=Total Assistance 5=Supervision or Setup 2=Maximal Assistance 6=Modified [place] 3=Moderate Assistance 7=Complete [place] Therapy Quality Codes: 6 Independent with activity with or without an assistive device 5 Patient requires set up or clean up by helper. Patient completes activity by themselves 4 Supervision or touching assist (CGA). [place] provide cues , steadying assist 3 The helper provides less than half the effort to complete the activity 2 The helper provides more than half the effort to complete the activity 1 Dependent. The helper does all the effort to complete an activity 7 Patient refused to complete or attempt activity 9 The patient did not perform the activity before the current illness or injury 88 Not attempted due to Medical conditions or safety concerns Grooming (FIM): 6 (Pt able to brush hair and teeth sitting at sink in w/c. ) Oral Hygiene (QC): 6 Bathing (FIM): 5 (Pt able to perform sponge bath EOB. Pt able to wash, rinse, and dry self sitting EOB and leaning side to side. Set up. ) Bathing Location: L Arm, R Arm, L Upper Leg, R Upper Leg, L Lower Leg (in cluding foot), R Lower Leg (including foot), Chest, Abdomen, Buttocks, Perineal Area Shower/Bathe Self (QC): 4 (due to STM safety concerns. ) Upper Body (FIM): 5 (Pt able to don/doff shirt by self. Set up. ) Upper Body Dressing (QC): 5 Lower Body Dressing (FIM): 5 (Pt able to lean side to side to don/doff brief, pants, and socks by self. ) Lower Body Dressing (QC): 4 (safety concerns due to STM.) Transfers (B, C, W/C) (FIM): 5 (Pt able to place sliding board properly with VC's. Pt requires SBA while using sliding board. ) Other Treatment Pt propelled self using w/c to therapy gym. Pt participated in arm bike exercise for duration 15 min at 20 watt resistance increase UE strength for functional activity tasks. Pt participated in arm jacqueline exercise using 1lb wrist weights 2x 10 reps. Pt required 1 rest break due to decreased activity tolerance. Pt propelled self to room. Pt sitting in w/c, call light and phone in reach, all needs met in room. OT Short Term Goals Short Term Goals Time Frame: Nov 07, 2018 Eating(FIM): 5 Grooming(FIM): 5 Bathing(FIM): 4 Upper Body Dressing(FIM): 4 Lower Body Dressing(FIM): 3 Toileting(FIM): 3 Transfers (B,C,W/C) (FIM): 3 (slide board bed<>w/c) Toilet/Commode Transfer(FIM): 3 Additional Short Term Goals: 1-Demonstrate ADL Tasks, 2-Verbalize Understanding, 3-ImproveStrength/Abilio 1=Demonstrate adherence to instructed precautions during ADL tasks. 2=Patient will verbalize/demonstrate understanding of assistive devices/modifications for ADL. 3=Patient will improve strength/tolerance for activity to enable patient to perform ADL's. OT Coating Manager Goals Residential Goals Time Frame: Nov 21, 2018 Eating (FIM): 6 Eating (QC): 6 Groomin Oral Hygiene (QC): 5 Bathing(FIM): 4 Shower/Bathe Self (QC): 4 Upper Body Dressing(FIM): 5 Upper Body Dressing (QC): 5 Lower Body Dressing(FIM): 5 Lower Body Dressing (QC): 5 On/Off Footwear (QC): 5 Toileting(FIM): 5 Toileting Hygiene (QC): 5 Transfers (B,C,W/C) (FIM): 5 Toilet/Commode Transfer(FIM): 5 Toilet/Commode Transfer (QC): 5 Shower Transfer(FIM): 3 Additional Goals: 1-Demonstrate ADL Tasks, 2-Verbalize Understanding, 3- ImproveStrength/Abilio 1=Demonstrate adherence to instructed precautions during ADL tasks. 2=Patient will verbalize/demonstrate understanding of assistive devices/modifications for ADL. 3=Patient will improve strength/tolerance for activity to enable patient to perform ADL's. OT Education/Plan Problem List/Assessment Assessment: Decreased Activ Tolerance, Decreased Safety Aware, Decreased UE Strength Discharge Recommendations Plan/Recommendations: Continue POC Treatment Plan/Plan of Care Patient would benefit from OT for education, treatment and training to promote independence in ADL's, mobility, safety and/or upper extremity function for ADL's. Plan of Care: ADL Retraining, Functional Mobility, Group Exercise/Act as Ind, UE Funct Exercise/Act Treatment Duration: Nov 21, 2018 Frequency: At least 5 of 7 days/Wk (IRF) Estimated Hrs Per Day: 1.5 hours per day Agreement: Yes Rehab Potential: Fair Time/GCodes Start Time: 06:50 Stop Time: 08:05 Total Time Billed (hr/min): 75 Billed Treatment Time 1 visit- ADL 3 (45 min) EX 2 (30 min) NATE PROCTOR Nov 06, 2018 08:15
[2018-11-06] MEDS: LORATADINE (CLARITIN) 10 MG TAB PO SCH (08:23)
[2018-11-06] MEDS: ESTROGENS CONJUGATED 0.45 MG (PREMARIN) TAB PO SCH (08:23)
[2018-11-06] MEDS: busPIRone 10 MG (BUSPAR) TAB PO SCH ×3 (08:23→21:25)
[2018-11-06] MEDS: ENOXAPARIN 30 MG/0.3 ML (LOVENOX) SYR SC SCH ×2 (08:23→21:27)
[2018-11-06] MEDS: IBUPROFEN 800 MG (MOTRIN) TAB PO SCH ×3 (08:24→21:26)
[2018-11-06] MEDS: OLANZapine 5 MG (ZyPREXA) TAB PO SCH (08:24)
[2018-11-06] MEDS: POLYETHYLENE GLYCOL 17 GM (MIRALAX) PACK PO SCH ×2 (09:00→21:26)
[2018-11-06] MEDS: IPRATROPIUM 0.03% NS SCH ×3 (09:00→21:24)
[2018-11-06] MEDS: FLUTICASONE NASAL SPRAY (FLONASE) 16 GM BTL NS SCH ×2 (09:30→21:23)
--- NOTE | 2018-11-06 09:58 | Physical Therapy Daily Note ---
PT Daily Note-Current Subjective Pt sitting in W/C in room upon arrival. Pt agrees to PT. Pain Numeric Pain Scale: 3 Location Body Site: Sacrum Pain Description: Ache Mental Status Patient Orientation: Person, Confused, Place Transfers Therapy Code Descriptions/Definitions Functional [place] Measure: 0=Not Assessed/NA 4=Minimal Assistance 1=Total Assistance 5=Supervision or Setup 2=Maximal Assistance 6=Modified [place] 3=Moderate Assistance 7=Complete [place] Therapy Quality Codes: 6 Independent with activity with or without an assistive device 5 Patient requires set up or clean up by helper. Patient completes activity by themselves 4 Supervision or touching assist (CGA). [place] provide cues , steadying assist 3 The helper provides less than half the effort to complete the activity 2 The helper provides more than half the effort to complete the activity 1 Dependent. The helper does all the effort to complete an activity 7 Patient refused to complete or attempt activity 9 The patient did not perform the activity before the current illness or injury 88 Not attempted due to Medical conditions or safety concerns Scootin Chair/Yhu-to-Njfke Xfer(QC): 4 Bed to/from Chair: 4 Weight Bearing Right Lower Extremity: Right Non Weight Bearing Left Lower Extremity: Left Non Weight Bearing Wheelchair Training Does the Pt Use a Wheelchair?: Yes Wheelchair (FIM): 4 Wheelchair Distance: 3=150 ft Distance: 200' Wheelchair Level of Assist: 4 Wheel 50 ft with 2 turns (QC): 4 Wheel 150 ft (QC): 4 Type of Wheelchair: Manual Treatments Pt works on W/C mobility and slide board transfers during tx. Pt needs VC for sequencing and hand placement during slide board transfer. Pt resting L sidelying in bed at end of tx with all needs met,call light in hand. Assessment Current Status: Good Progress Pt is anxious at times but is making progress with transfers and W/C mobility. PT Short Term Goals Short Term Goals Time Frame: Nov 09, 2018 Transfers (B,C,W/C) (FIM): 3 (slide board bed<>w/c) Wheelchair Distance: 150'x2 PT Aerobics Instructor Goals Care Home Goals PT Care Home Goals Time Frame: Nov 23, 2018 Transfers (B,C,W/C) (FIM): 4 Sit to Lying (QC): 5 Lying-Sitting on Side/Bed(QC): 5 Sit to Stand (QC): 88 Rollin Roll Left to Right (QC): 5 Chair/[id number] Xfer(QC): 4 Car Transfer (QC): 4 Does the Patient Walk: No and Walking Goal NOT indicated Does the Pt use WC or Scooter?: Yes Wheelchair (FIM): 2 Wheelchair distance (FIM): 4=042-75 ft Distance: 100' Wheelchair Level of Assist: 4 Wheel 50 feet with 2 turns (QC: 5 Stairs (FIM): 0 1 Step (curb) (QC): 88 4 Steps (QC): 88 12 Steps (QC): 88 Picking up an Object (QC): 5 PT Plan Problem List Problem List: Activity Tolerance, Functional Strength, Safety, Transfer Treatment/Plan Treatment Plan: Continue Plan of Care Treatment Plan: Bed Mobility, Concurrent Therapy, Education, Functional Activity Abilio, Functional Strength, Group Therapy, Safety, Therapeutic Exercise, Transfers Treatment Duration: Nov 23, 2018 Frequency: At least 5 of 7 days/Wk (IRF) Estimated Hrs Per Day: 1.5 hours per day Patient and/or Family Agrees t: Yes Safety Risks/Education Patient Education: Transfer Techniques, Correct Positioning, W/C Management, Safety Issues Teaching Recipient: Patient Teaching Methods: Discussion Response to Teaching: Verbalize Understanding, Reinforcement Needed Time/GCodes Time In: 900 Time Out: 945 Total Billed Treatment Time: 45 Total Billed Treatment 1, WC (20m) & FA x2 (25m) CHA FOOTE PTA Nov 06, 2018 09:58
--- NOTE | 2018-11-06 10:01 | Speech Therapy Daily Note ---
Speech Daily Progress Note Subjective Date Seen by Provider: Nov 06, 2018 Time Seen by Provider: 00:30 Patient stated she got worn out from her appt. yesterday but rested well last night. Objective Patient completed a series of problem solving questions related to her daily needs at 90% with minimal cues. Assessment Assessment Current Status: Good Progress Treatment Plan Continue Plan of Care Communication Comprehension: 5 Expression: 4 Social Cognition Social Interaction: 6 Problem Solvin Memory: 3 Speech Short Term Goals Short Term Goals Short Term Goals 1) The patient will complete memory tasks with 80% or greater with minimal cues. 2) The patient will complete problem solving tasks with 80% or greater with minimal cues. 3) The patient will complete safety awareness tasks with 80% or greater with minimal cues. Speech Clerk Typist Goals Clerk Typist Goals The patient will improve cognitive skills in order to return home safely. Speech-Plan Patient/Family Goals Patient/Family Goals: Patient plans on returning home post rehab, however due to her decreased independence she will most likely go to a SNF at least for short term. Treatment Plan Speech Therapy Treatment Plan: Continue Plan of Care Patient has progressed well with skilled ST. Treatment Duration: Nov 08, 2018 Frequency: 5 times per week Estimated Hrs Per Day: .5 hour per day Rehab Potential: Fair Barriers to Learning: Mild cognitive deficits Pt/Family Agrees to Plan: Yes Safety Risks/Education Teaching Recipient: Patient Teaching Methods: Demonstration, Discussion Response to Teaching: Verbalize Understanding, Return Demonstration Education Topics Provided: Continued safety within her room. Time Speech Therapy Time In: 08:30 Speech Therapy Time Out: 09:00 Total Billed Time: 30 Billed Treatment Time 1KETTY BETHAN[address] ST Nov 06, 2018 10:01
--- NOTE | 2018-11-06 10:05 | PM&R Progress Note ---
Subjective HPI/CC On Admission Date Seen by Provider: Nov 06, 2018 Time Seen by Provider: 09:00 CC: Debility following sacral fracture and subsequent partial paraplegia Pt is a 67 y/o WF w/ hx of Bipolar d/o, expressive aphasia, HTN, and asthma, who is here from [facility] in [place], [place] after recent fall 2/2 vertigo and unsteady gait at her home which resulted in nondisplaced fracture of the left inferior and superior pubic ramus, a sacral fracture with mild displacement of 1 cm, a mild T12 compression fracture, and posterior fracture of right 9th rib. Pt was admitted to ICU at the time and ortho surg was consulted. Pt was stabilized and sent to [place] at a tertiary higher level care incase. Sacroiliac joints were bridged w/ 2 surgical screws. Rates LLE pain 10/10 at this time. Also c/o muscle spasms in RLE. says Flexeril is not helping. Pt currently has a fisher in place, recent CT showed distended bladder, no hematuria. currently No focal deficits. Pt has chronic constipation and is intermittently incontinent of bowels. Had regular bladder function prior to fall. Reports hx of recent falls as well. Prior to this encounter, pt lived alone at home and ambulated using a walker. Pt has a daughter who lives 23 miles away from her and is able to visit her MWF. 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 Pt was discharged from [place] with the following meds: PERCOCET 5-325MG 1 TAB Q6H PRN CALCIUM +D 500-200 BID DOCUSATE-SENNA 50-8.6MG 2 TABS HS LOVENOX 30MG SUBQ Q12 HOURS X 14 DAYS Pt has seen: PCP Dr. Kaitlynn Martinez Urologist Dr. Harrell (has f/u on 10/29/18) Ortho Dr. Mccullough (has f/u on 10/29/18) Per Brandie Moreno [facility] Chief complaint: Debility following sacral fracture. HPI: This is a 67yoWF clinic Pt of [facility] that I briefly saw two weeks ago when she was admitted over the weekend after suffering a fall and sustaining a sacral fracture. It became unstable so orthopedic surgery recommended transfer to higher level of care to [place] and I supported that move. She did undergo surgery to repair that by trauma surgery orthopedics and a screw was placed for stability. She is still having significant neurological deficit since that was completed, remains incontinent of stool and neurogenic bladder retention requiring fisher catheter administration. We will work on transfers to a wheelchair. We encourage her to be up in a chair. Next week appointment scheduled with urology and trauma surgery and it will be assessed at that point regarding additional recommendations. Percocet is barely used now, will rely mostly on Tylenol and did not receive any transfusion, Hgb of 8.7 and is not on any antibiotics. Prior level of functioning was independent without the use of assistive devices so will work towards wheelchair mobility since likely the neurological deficit could be permanent. Subjective/Events-last exam Holding Linzess to every other day Fecal incontinence noted with loose stools Bladder scan revealed 400 and she was catheterized Asking when her tailbone will be healed Met with trauma surgeon and he did not ask hm that question, I told her it will be months Pain is well controlled Checked meds and labs Conferred with card sorter therapy notes Review of Systems General: Fatigue Musculoskeletal: back pain Objective Exam Vital Signs Vital Signs Date Time Temp Pulse Resp B/P (MAP) Pulse Ox O2 Delivery O2 Flow Rate FiO2 11/06/18 17:31 36.5 70 18 149/78 (101) 97 Room Air Capillary Refill : Less Than 3 Seconds General Appearance: No Apparent Distress, WD/WN, Anxious, Chronically ill HEENT: PERRL/EOMI, Normal ENT Inspection, Pharynx Normal Neck: Full Range of Motion, Normal Inspection, Non Tender, Supple Respiratory: Chest Non Tender, Lungs Clear, Normal Breath Sounds, No Accessory Muscle Use, No Respiratory Distress Cardiovascular: Regular Rate, Rhythm, No Edema, No Gallop, No JVD, No Murmur, Normal Peripheral Pulses Gastrointestinal: Normal Bowel Sounds, No Organomegaly, No Pulsatile Mass, Soft Extremity: Normal Capillary Refill, Normal Inspection, Non Tender, No Calf Tenderness, No Pedal Edema, Other (strength right lower leg 1/5, left 1/5) Neurologic/Psychiatric: Alert, Oriented x3, Normal Mood/Affect, re etcher II-XII Norm as Tested, Motor Weakness (lower leg parpalegia) Skin: Normal Color, Warm/Dry Lymphatic: No Adenopathy Results/Procedures Lab Patient resulted labs reviewed. FIM Transfers Therapy Code Descriptions/Definitions Functional [place] Measure: 0=Not Assessed/NA 4=Minimal Assistance 1=Total Assistance 5=Supervision or Setup 2=Maximal Assistance 6=Modified [place] 3=Moderate Assistance 7=Complete [place] Therapy Quality Codes: 6 Independent with activity with or without an assistive device 5 Patient requires set up or clean up by helper. Patient completes activity by themselves 4 Supervision or touching assist (CGA). [place] provide cues , steadying assist 3 The helper provides less than half the effort to complete the activity 2 The helper provides more than half the effort to complete the activity 1 Dependent. The helper does all the effort to complete an activity 7 Patient refused to complete or attempt activity 9 The patient did not perform the activity before the current illness or injury 88 Not attempted due to Medical conditions or safety concerns Transfers (B, C, W/C) (FIM): 5 (Pt required placement for sliding board. SBA while pt is using sliding board. Pt has anxiety of hand placement. ) Scootin Rollin Roll Left to Right (QC): 1 Supine to/from Sit: 3 Sit to/from Stand: 0 (NWB bilateral LE) Sit to Lying (QC): 3 Sit to Stand (QC): 88 Chair/Vsy-oy-Fzaho Xfer(QC): 88 Bed to/from Chair: 4 Car Transfer (QC): 88 Gait Training Does the Patient Walk?: No and Walking Goal NOT indicated Wheelchair Training Does the Pt Use a Wheelchair?: Yes Wheelchair (FIM): 5 Wheelchair Distance: 3=150 ft Distance: 150'x2 Wheelchair Level of Assist: 5 Wheel 50 ft with 2 turns (QC): 5 Wheel 150 ft (QC): 5 Type of Wheelchair: Manual Stair Training Stairs (FIM): 0 1 Step (curb) (QC): 88 4 Steps (QC): 88 12 Steps (QC): 88 Balance Picking up an Object (QC): 4 Mental Status/Objective Comprehension: 5 Expression: 4 Social Interaction: 6 Problem Solvin Memory: 3 ADL-Treatment Feedin (Pt able to complete own set up and use regular utensils to eat.) Eating (QC): 6 Groomin (Pt able to brush hair and teeth sitting at sink in w/c. ) Oral Hygiene (QC): 6 Bathin (Pt able to perform sponge bath EOB. ) Bathing Location: L Arm, R Arm, L Upper Leg, R Upper Leg, L Lower Leg (i ncluding foot), R Lower Leg (including foot), Chest, Abdomen, Buttocks, Perineal Area Shower/Bathe Self (QC): 4 (Safety concerns due to STM.) Upper Extremity Dressin (Pt able to doff hospital gown by self. Pt able to thread arms and head through sleeves by self. Set up. ) Upper Body Dressing (QC): 4 (safety concerns due to STM. ) Lower Extremity Dressin (Pt able to don/doff briefs and socks by self laying on bed. Set up. ) Lower Body Dressing (QC): 4 (Supervision. Safety concerns due to STM. ) On/Off Footwear (QC): 5 Toiletin Toileting Hygiene (QC): 1 Toilet/Commode Transfer: 1 (Using shower chair with cutout, pt uses sliding board transfer with assist x2.) Toilet Transfer (QC): 1 Shower: 1 (Using shower chair with cutout, pt transported to shower. Min A wi th max encouragement for slide board transfer from bed to shower chair.) Assessment/Plan Assessment and Plan Assess & Plan/Chief Complaint Assessment: Debility following sacral fracture and spinal cord injury with flaccidity or spasticity of the lower extremities Bipolar Anxiety Urinary retention due to neurogenic bladder Fisher cath likely will need in/out caths versus SP catheter Fecal incontinence Anemia Chest pain chronic Muscle spasms Plan: Monitor pain Monitor bowel and bladder Baclofen for muscle spasms and increase the dose IRF protocol Urology appreciated Try to wean off pain medication Low dose of hydroxyzine for anxiety she has a benzodiazepine dependency history Trauma surgery appt 4 weeks Decrease pain meds (1) Closed fracture of sacrum Status: Acute Qualifiers: Encounter type: subsequent encounter Zone of sacrum fracture: unspecified portion of sacrum Fracture healing: with nonunion Qualified Codes: S32.10XK - Unspecified fracture of sacrum, subsequent encounter for fracture with nonunion (2) Hyponatremia Status: Acute (3) Traumatic retroperitoneal hematoma Status: Acute Qualifiers: Encounter type: subsequent encounter Qualified Codes: S36.892D - Contusion of other intra-abdominal organs, subsequent encounter (4) Sacral fracture, closed Status: Acute (5) Right rib fracture Status: Acute Qualifiers: Encounter type: subsequent encounter Rib fracture type: multiple ribs Fracture type: closed Fracture healing: with routine healing Qualified Codes: S22.41XD - Multiple fractures of ribs, right side, subsequent encounter for fracture with routine healing (6) Rhabdomyolysis Status: Resolved Resolution Date/Time: 10/25/18 @ 06:25 (7) Fall Status: Acute Qualifiers: Encounter type: subsequent encounter Qualified Codes: W19.XXXD - Unspecified fall, subsequent encounter (8) Fisher catheter in place Status: Acute (9) Neurogenic bladder Status: Acute (10) HTN (hypertension) Status: Chronic Qualifiers: Hypertension type: essential hypertension Qualified Codes: I10 - Essential (primary) hypertension (11) Hypothyroidism Status: Chronic Qualifiers: Hypothyroidism type: acquired Qualified Codes: E03.9 - Hypothyroidism, unspecified (12) Anemia Status: Chronic Qualifiers: Anemia type: unspecified type Qualified Codes: D64.9 - Anemia, unspecified (13) Fecal incontinence Status: Acute Qualifiers: Fecal incontinence type: unspecified Qualified Codes: R15.9 - Full incontinence of feces (14) Chest pain Status: Chronic Qualifiers: Chest pain type: unspecified Qualified Codes: R07.9 - Chest pain, unspecified (15) Bipolar 1 disorder Status: Chronic (16) MGUS (monoclonal gammopathy of unknown significance) Status: Chronic (17) COPD (chronic obstructive pulmonary disease) Status: Chronic (18) DVT prophylaxis Status: Acute ARIELA ESPINOZA DO Nov 06, 2018 10:05
--- NOTE | 2018-11-06 16:09 | Physical Therapy Daily Note ---
PT Daily Note-Current Subjective Pt laying Supine in bed after Nurses inserted Blum. SALES ORDER PROCESSOR to assist pt with donning pants. Pain Location: No Pain Reported Mental Status Patient Orientation: Person, Confused, Place Attachments: Blum Catheter Transfers Therapy Code Descriptions/Definitions Functional [place] Measure: 0=Not Assessed/NA 4=Minimal Assistance 1=Total Assistance 5=Supervision or Setup 2=Maximal Assistance 6=Modified [place] 3=Moderate Assistance 7=Complete [place] Therapy Quality Codes: 6 Independent with activity with or without an assistive device 5 Patient requires set up or clean up by helper. Patient completes activity by themselves 4 Supervision or touching assist (CGA). [place] provide cues , steadying assist 3 The helper provides less than half the effort to complete the activity 2 The helper provides more than half the effort to complete the activity 1 Dependent. The helper does all the effort to complete an activity 7 Patient refused to complete or attempt activity 9 The patient did not perform the activity before the current illness or injury 88 Not attempted due to Medical conditions or safety concerns Weight Bearing Right Lower Extremity: Right Non Weight Bearing Left Lower Extremity: Left Non Weight Bearing Exercises Supine Ex: Bridging, Ankle pumps, Quad Set, Glut sets, Heel Slides, Straight leg raise, Hip abd/add Supine Reps: 20 Treatments Pt dons pants in bed. Pt completes Supine Ex in bed with a couple short RB as needed. Pt resting in bed with all needs met, call light in hand. Assessment Current Status: Good Progress Pt tolerates tx well. Pt gaining strength and improving on Slide Board transfer independence. PT Short Term Goals Short Term Goals Time Frame: Nov 09, 2018 Transfers (B,C,W/C) (FIM): 3 (slide board bed<>w/c) Wheelchair Distance: 200' PT Fci Goals Fci Goals PT Auditor Internal Goals Time Frame: Nov 23, 2018 Transfers (B,C,W/C) (FIM): 4 Sit to Lying (QC): 5 Lying-Sitting on Side/Bed(QC): 5 Sit to Stand (QC): 88 Rollin Roll Left to Right (QC): 5 Chair/Hmn-ab-Plmxr Xfer(QC): 4 Car Transfer (QC): 4 Does the Patient Walk: No and Walking Goal NOT indicated Does the Pt use WC or Scooter?: Yes Wheelchair (FIM): 2 Wheelchair distance (FIM): 0=324-32 ft Distance: 100' Wheelchair Level of Assist: 4 Wheel 50 feet with 2 turns (QC: 5 Stairs (FIM): 0 1 Step (curb) (QC): 88 4 Steps (QC): 88 12 Steps (QC): 88 Picking up an Object (QC): 5 PT Plan Problem List Problem List: Activity Tolerance, Functional Strength, Safety Treatment/Plan Treatment Plan: Continue Plan of Care Treatment Plan: Bed Mobility, Concurrent Therapy, Education, Functional Activity B[place]io, Functional Strength, Group Therapy, Safety, Therapeutic Exercise, Transfers Treatment Duration: Nov 23, 2018 Frequency: At least 5 of 7 days/Wk (IRF) Estimated Hrs Per Day: 1.5 hours per day Patient and/or Family Agrees t: Yes Safety Risks/Education Patient Education: Transfer Techniques, Correct Positioning, Safety Issues Teaching Recipient: Patient Teaching Methods: Discussion Response to Teaching: Verbalize Understanding Time/GCodes Time In: 1400 Time Out: 1430 Total Billed Treatment Time: 30 Total Billed Treatment 1, EX (20m) & FA (10m) CAH FOOTE PTA Nov 06, 2018 16:09
[2018-11-06] MEDS: TAMSULOSIN 0.4 MG (FLOMAX) CAP PO SCH (17:00)
[2018-11-06 17:31] VITALS: BP 149/78
--- NOTE | 2018-11-06 19:20 | NUR ---
bedside report received from BITA DAMON, assume care of pt
[2018-11-06 21:20] VITALS: BP 136/80
[2018-11-06] MEDS: GABAPENTIN 400 MG (NEURONTIN) CAP PO SCH (21:25)
[2018-11-06] MEDS: MONTELUKAST 10 MG (SINGULAIR) TAB PO SCH (21:26)
[2018-11-06] MEDS: SENNA W/DOCUSATE (SENOKOT S) TABLET PO SCH (21:26)
--- NOTE | 2018-11-06 21:26 | NUR ---
pt refused Senokot & miralax, c/o pain level 10/10 on numeric scale, pt requests only 1 Ultram or 50mg
[2018-11-06] MEDS: ISOSORBIDE MONONITRATE 60 MG (IMDUR) TAB PO SCH (21:28)
--- NOTE | 2018-11-06 21:40 | NUR ---
bladder scan showed 312
--- NOTE | 2018-11-06 22:20 | NUR ---
rates pain level 10/10 on numeric scale
--- NOTE | 2018-11-06 22:45 | NUR ---
straight cath & received 300ml cloudy baltazar colored urine
[2018-11-06] MEDS: oxyCODONE/APAP 5/325MG (PERCOCET 5) TABLET PO PRN (22:55)
[2018-11-06] MEDS: ZOLPIDEM 5 MG (AMBIEN) TAB PO PRN (22:55)
--- NOTE | 2018-11-06 22:55 | NUR ---
c/o pain level 10/10 on numeric scale, Percocet 5 1 tab po given
--- NOTE | 2018-11-06 23:50 | NUR ---
resting quietly in bed, pain level 0/10 on flacc scale
[2018-11-07 06:05] VITALS: BP 127/76
[2018-11-07] MEDS: CALCIUM CARB + VIT D 600 MG (CALCARB + D) TAB PO SCH ×2 (06:30→16:58)
[2018-11-07] MEDS: PANTOPRAZOLE 40 MG (PROTONIX) TAB PO SCH (06:30)
[2018-11-07] MEDS: LEVOTHYROXINE 50 MCG (LEVOTHROID) TAB PO SCH (06:30)
[2018-11-07] MEDS: BETHANECHOL 25 MG (URECHOLINE) TAB PO SCH ×4 (06:30→21:04)
[2018-11-07] MEDS: VENLAFAXINE 50 MG (EFFEXOR) TABLET PO SCH ×2 (06:31→16:58)
--- NOTE | 2018-11-07 07:26 | NUR ---
bedside report given to SHAWN DAMON
[2018-11-07] MEDS: RT-ADVAIR HFA 45/21 MCG PER PUFF IH SCH ×2 (07:57→19:14)
--- NOTE | 2018-11-07 08:00 | NUR ---
MAIN COMPLAINT IS STILL TAILBONE AND LOWER BACK PAIN. CONTINUES TO FEEL "STRESSED WITH THERAPY" AND REFUSES TO EAT UNTIL THERAPY IS OVER. DISCUSSED BLADDER AND BOWEL TRAINING WITH DR. ESPINOZA PER OT'S REQUEST AND WILL START IT ALTHOUGH PATIENT COMPLAINS UNABLE TO DO IT BECAUSE OF BOTH BLADDER AND BOWEL INCONTINENCE. IS ABLE TO TELL WHEN BLADDER IS FULL.
--- NOTE | 2018-11-07 08:08 | Occupational Ther Daily Note ---
OT Current Status-Daily Note Subjective Pt alert laying in bed. Pt agrees to therapy. Pt more anxious today. Mental Status/Objective Patient Orientation: Person Therapy Code Descriptions/Definitions Functional [place] Measure: 0=Not Assessed/NA 4=Minimal Assistance 1=Total Assistance 5=Supervision or Setup 2=Maximal Assistance 6=Modified [place] 3=Moderate Assistance 7=Complete [place] ADL-Treatment Attempted to work with pt on sliding board transfer to <--> from toilet. Pt adamantly refused to complete transfer, extremely anxious about any sliding board transfers today. Discussed getting on a schedule for bowel program and/or working on cleaning self up after an incontinent BM. Pt unable to make a dec ision and states that she is not able to tell when she has to have a BM. Discussed options with nrsg and let nrsg know about conversation. Pt needs reassurance throughout therapy session. Therapy Code Descriptions/Definitions Functional [place] Measure: 0=Not Assessed/NA 4=Minimal Assistance 1=Total Assistance 5=Supervision or Setup 2=Maximal Assistance 6=Modified [place] 3=Moderate Assistance 7=Complete [place] Therapy Quality Codes: 6 Independent with activity with or without an assistive device 5 Patient requires set up or clean up by helper. Patient completes activity by themselves 4 Supervision or touching assist (CGA). [place] provide cues , steadying assist 3 The helper provides less than half the effort to complete the activity 2 The helper provides more than half the effort to complete the activity 1 Dependent. The helper does all the effort to complete an activity 7 Patient refused to complete or attempt activity 9 The patient did not perform the activity before the current illness or injury 88 Not attempted due to Medical conditions or safety concerns Grooming (FIM): 6 (Pt able to brush hair and teeth sitting at sink in w/c.) Oral Hygiene (QC): 6 (with safety concerns STM. ) Bathing (FIM): 4 (Pt using shower chair with cutout to bathe. Pt required assist to reach buttocks. Pt able to wash LE w/o AE today. Pt able to rinse and dry self. ) Bathing Location: L Arm, R Arm, L Upper Leg, R Upper Leg, L Lower Leg (including foot), R Lower Leg (including foot), Chest, Abdomen, Perineal Area Shower/Bathe Self (QC): 3 Upper Body (FIM): 5 (Pt able to doff/don bra and shirt by self sitting EOB. Set up. ) Upper Body Dressing (QC): 4 (due to STM. ) Lower Body Dressing (FIM): 5 (Pt able to don/doff briefs and pants by self leaning side to side while sitting EOB. Pt able to don/doff socks sitting EOB. Set up. ) Lower Body Dressing (QC): 4 (saftey concerns due to STM. ) Transfers (B, C, W/C) (FIM): 3 (Pt requires assist to place sliding board in correct place. Pt needed VC's to lift self with arms while using sliding board. Pt requires approval from therapist for hand placement while using sliding board through session. While using sliding board to transfer back to pts bed after shower pt stated she couldn't remember how to use the sliding board in mid transfer.) Shower Transfer(FIM): 2 (Pt using rolling shower chair with cutout to transport into the shower.) Other Treatment Pt sitting in w/c, call light and phone in reach, all needs met in room. OT Short Term Goals Short Term Goals Time Frame: Nov 07, 2018 Eating(FIM): 5 Grooming(FIM): 5 Bathing(FIM): 4 Upper Body Dressing(FIM): 4 Lower Body Dressing(FIM): 3 Toileting(FIM): 3 Transfers (B,C,W/C) (FIM): 3 (slide board bed<>w/c) Toilet/Commode Transfer(FIM): 3 Additional Short Term Goals: 1-Demonstrate ADL Tasks, 2-Verbalize Understanding, 3-ImproveStrength/Abilio 1=Demonstrate adherence to instructed precautions during ADL tasks. 2=Patient will verbalize/demonstrate understanding of assistive devices/modifications for ADL. 3=Patient will improve strength/tolerance for activity to enable patient to perform ADL's. OT University Archivist Goals [facility] Goals Time Frame: Nov 21, 2018 Eating (FIM): 6 Eating (QC): 6 Groomin Oral Hygiene (QC): 5 Bathing(FIM): 4 Shower/Bathe Self (QC): 4 Upper Body Dressing(FIM): 5 Upper Body Dressing (QC): 5 Lower Body Dressing(FIM): 5 Lower Body Dressing (QC): 5 On/Off Footwear (QC): 5 Toileting(FIM): 5 Toileting Hygiene (QC): 5 Transfers (B,C,W/C) (FIM): 5 Toilet/Commode Transfer(FIM): 5 Toilet/Commode Transfer (QC): 5 Shower Transfer(FIM): 3 Additional Goals: 1-Demonstrate ADL Tasks, 2-Verbalize Understanding, 3- ImproveStrength/Abilio 1=Demonstrate adherence to instructed precautions during ADL tasks. 2=Patient will verbalize/demonstrate understanding of assistive devices/modifications for ADL. 3=Patient will improve strength/tolerance for activity to enable patient to perform ADL's. OT Education/Plan Problem List/Assessment Assessment: Decreased UE Strength, Impaired Self-Care Skills Discharge Recommendations Plan/Recommendations: Continue POC Treatment Plan/Plan of Care Patient would benefit from OT for education, treatment and training to promote independence in ADL's, mobility, safety and/or upper extremity function for ADL's. Plan of Care: ADL Retraining, Functional Mobility, Group Exercise/Act as Ind, UE Funct Exercise/Act Treatment Duration: Nov 21, 2018 Frequency: At least 5 of 7 days/Wk (IRF) Estimated Hrs Per Day: 1.5 hours per day Agreement: Yes Rehab Potential: Fair Time/GCodes Start Time: 06:50 Stop Time: 08:05 Total Time Billed (hr/min): 75 Billed Treatment Time 1 visit- ADL 5 (75 min) NATE PROCTOR Nov 07, 2018 08:08
[2018-11-07] MEDS: ESTROGENS CONJUGATED 0.45 MG (PREMARIN) TAB PO SCH (08:46)
[2018-11-07] MEDS: OLANZapine 5 MG (ZyPREXA) TAB PO SCH (08:46)
[2018-11-07] MEDS: LORATADINE (CLARITIN) 10 MG TAB PO SCH (08:46)
[2018-11-07] MEDS: busPIRone 10 MG (BUSPAR) TAB PO SCH ×3 (08:46→21:03)
[2018-11-07] MEDS: IBUPROFEN 800 MG (MOTRIN) TAB PO SCH ×3 (08:46→21:03)
[2018-11-07] MEDS: IPRATROPIUM 0.03% NS SCH ×3 (08:48→21:01)
[2018-11-07] MEDS: ENOXAPARIN 30 MG/0.3 ML (LOVENOX) SYR SC SCH ×2 (08:49→21:04)
[2018-11-07] MEDS: FLUTICASONE NASAL SPRAY (FLONASE) 16 GM BTL NS SCH ×2 (08:50→21:02)
[2018-11-07] MEDS: POLYETHYLENE GLYCOL 17 GM (MIRALAX) PACK PO SCH ×2 (08:50→21:06)
--- NOTE | 2018-11-07 09:38 | Speech Therapy Daily Note ---
Speech Daily Progress Note Subjective Date Seen by Provider: Nov 07, 2018 Time Seen by Provider: 00:30 Patient was sitting up in her chair, feeling very happy about her progress. Objective Patient completed task of hanging her clothes and folding her under garments with minimal cues at 95%. Assessment Assessment Current Status: Good Progress Treatment Plan Continue Plan of Care Communication Comprehension: 5 Expression: 4 Social Cognition Social Interaction: 6 Problem Solvin Memory: 3 Speech Short Term Goals Short Term Goals Short Term Goals 1) The patient will complete memory tasks with 80% or greater with minimal cues. 2) The patient will complete problem solving tasks with 80% or greater with minimal cues. 3) The patient will complete safety awareness tasks with 80% or greater with minimal cues. Speech Tab Cutter Goals Tab Cutter Goals The patient will improve cognitive skills in order to return home safely. Speech-Plan Patient/Family Goals Patient/Family Goals: Patient's discharge planning is to release to her home with additional in home assistance. Treatment Plan Speech Therapy Treatment Plan: Continue Plan of Care Patient continues to show progress with all of her ST goals. Treatment Duration: Nov 15, 2018 Frequency: 5 times per week Estimated Hrs Per Day: .5 hour per day Rehab Potential: Fair Barriers to Learning: Patient has mild cognitive deficits, however these are resolving. Pt/Family Agrees to Plan: Yes Safety Risks/Education Teaching Recipient: Patient Teaching Methods: Demonstration, Discussion Response to Teaching: Verbalize Understanding, Return Demonstration Education Topics Provided: Continued safety with her daily tasks. Time Speech Therapy Time In: 08:30 Speech Therapy Time Out: 09:00 Total Billed Time: 30 Billed Treatment Time 1KETTY BETH[address] ST Nov 07, 2018 09:38
--- NOTE | 2018-11-07 10:45 | NUR ---
Reviewed Team Conference Summary, and patient is agreeable to a continued stay with review at next Team Conference, 11/13/18. It was explained to patient that her CM is going to increase her caregiver hours as well as have a LifeLine installed at patient's home; however, patient continues to be adamant she wishes to discharge to [place], [place]. Patient attributes this to "beings scared" in regards to returning home without 24 hour care. Patient states her NWB status will be lifted in 4 weeks and is hopeful she can return home from [facility], at that time. Will continue to follow.
--- NOTE | 2018-11-07 10:47 | PM&R Progress Note ---
Subjective HPI/CC On Admission Date Seen by Provider: Nov 07, 2018 Time Seen by Provider: 09:00 CC: Debility following sacral fracture and subsequent partial paraplegia Pt is a 67 y/o WF w/ hx of Bipolar d/o, expressive aphasia, HTN, and asthma, who is here from [facility] in [place], [place] after recent fall 2/2 vertigo and unsteady gait at her home which resulted in nondisplaced fracture of the left inferior and superior pubic ramus, a sacral fracture with mild displacement of 1 cm, a mild T12 compression fracture, and posterior fracture of right 9th rib. Pt was admitted to ICU at the time and ortho surg was consulted. Pt was stabilized and sent to [facility] at a tertiary higher level care [facility]. Sacroiliac joints were bridged w/ 2 surgical screws. Rates LLE pain 10/10 at this time. Also c/o muscle spasms in RLE. says Flexeril is not helping. Pt currently has a fisher in place, recent CT showed distended bladder, no hematuria. currently No focal deficits. Pt has chronic constipation and is intermittently incontinent of bowels. Had regular bladder function prior to fall. Reports hx of recent falls as well. Prior to this encounter, pt lived alone at home and ambulated using a walker. Pt has a daughter who lives 23 miles away from her and is able to visit her MWF. 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 Pt was discharged from [facility] with the following meds: PERCOCET 5-325MG 1 TAB Q6H PRN CALCIUM +D 500-200 BID DOCUSATE-SENNA 50-8.6MG 2 TABS HS LOVENOX 30MG SUBQ Q12 HOURS X 14 DAYS Pt has seen: PCP Dr. Kaitlynn Martinez Urologist Dr. Harrell (has f/u on 10/29/18) Ortho Dr. Mccullough (has f/u on 10/29/18) Per Brandie Moreno [facility] Chief complaint: Debility following sacral fracture. HPI: This is a 67yoWF clinic Pt of [facility] that I briefly saw two weeks ago when she was admitted over the weekend after suffering a fall and sustaining a sacral fracture. It became unstable so orthopedic surgery recommended transfer to higher level of care to [facility] and I supported that move. She did undergo surgery to repair that by trauma surgery orthopedics and a screw was placed for stability. She is still having significant neurological deficit since that was completed, remains incontinent of stool and neurogenic bladder retention requiring fisher catheter administration. We will work on transfers to a wheelchair. We encourage her to be up in a chair. Next week appointment scheduled with urology and trauma surgery and it will be assessed at that point regarding additional recommendations. Percocet is barely used now, will rely mostly on Tylenol and did not receive any transfusion, Hgb of 8.7 and is not on any antibiotics. Prior level of functioning was independent without the use of assistive devices so will work towards wheelchair mobility since likely the neurological deficit could be permanent. Subjective/Events-last exam Pt requested Fisher catheter be placed. May need a super-pubic catheter in the future. Getting a bowel on bladder schedule now. May need group home. Incontinent at times so will initiate Fisher catheter. Ultram and Percocet maintained. Checked meds and labs Conferred with shift manager therapy notes Review of Systems Neurological: Weakness, Numbness, Incoordination Objective Exam Vital Signs Vital Signs Date Time Temp Pulse Resp B/P (MAP) Pulse Ox O2 Delivery O2 Flow Rate FiO2 11/07/18 17:29 Room Air 11/07/18 16:37 36.6 77 16 119/71 (87) 95 Capillary Refill : Less Than 3 Seconds General Appearance: No Apparent Distress, WD/WN, Anxious, Chronically ill HEENT: PERRL/EOMI, Normal ENT Inspection, Pharynx Normal Neck: Full Range of Motion, Normal Inspection, Non Tender, Supple Respiratory: Chest Non Tender, Lungs Clear, Normal Breath Sounds, No Accessory Muscle Use, No Respiratory Distress Cardiovascular: Regular Rate, Rhythm, No Edema, No Gallop, No JVD, No Murmur, Normal Peripheral Pulses Gastrointestinal: Normal Bowel Sounds, No Organomegaly, No Pulsatile Mass, Soft Extremity: Normal Capillary Refill, Normal Inspection, Non Tender, No Calf Tenderness, No Pedal Edema, Other (strength right lower leg 1/5, left 1/5) Neurologic/Psychiatric: Alert, Oriented x3, Normal Mood/Affect, clutch operator II-XII Norm as Tested, Motor Weakness (lower leg parpalegia) Skin: Normal Color, Warm/Dry Lymphatic: No Adenopathy Results/Procedures Lab Patient resulted labs reviewed. FIM Transfers Therapy Code Descriptions/Definitions Functional [place] Measure: 0=Not Assessed/NA 4=Minimal Assistance 1=Total Assistance 5=Supervision or Setup 2=Maximal Assistance 6=Modified [place] 3=Moderate Assistance 7=Complete [place] Therapy Quality Codes: 6 Independent with activity with or without an assistive device 5 Patient requires set up or clean up by helper. Patient completes activity by themselves 4 Supervision or touching assist (CGA). [place] provide cues , steadying assist 3 The helper provides less than half the effort to complete the activity 2 The helper provides more than half the effort to complete the activity 1 Dependent. The helper does all the effort to complete an activity 7 Patient refused to complete or attempt activity 9 The patient did not perform the activity before the current illness or injury 88 Not attempted due to Medical conditions or safety concerns Transfers (B, C, W/C) (FIM): 3 (Pt requires assist to place sliding board in correct place. Pt needed VC's to lift self with arms while using sliding board. Pt requires approval from therapist for hand placement while using sliding board through session. While using sliding board to transfer back to pts bed after shower pt stated she couldn't remember how to use the sliding board in mid transfer.) Scootin Rollin Roll Left to Right (QC): 1 Supine to/from Sit: 3 Sit to/from Stand: 0 (NWB bilateral LE) Sit to Lying (QC): 3 Sit to Stand (QC): 88 Chair/Rsn-pu-Uklek Xfer(QC): 4 Bed to/from Chair: 4 Car Transfer (QC): 88 Gait Training Does the Patient Walk?: No and Walking Goal NOT indicated Wheelchair Training Does the Pt Use a Wheelchair?: Yes Wheelchair (FIM): 4 Wheelchair Distance: 3=150 ft Distance: 200' Wheelchair Level of Assist: 4 Wheel 50 ft with 2 turns (QC): 4 Wheel 150 ft (QC): 4 Type of Wheelchair: Manual Stair Training Stairs (FIM): 0 1 Step (curb) (QC): 88 4 Steps (QC): 88 12 Steps (QC): 88 Balance Picking up an Object (QC): 4 Mental Status/Objective Comprehension: 5 Expression: 4 Social Interaction: 6 Problem Solvin Memory: 3 ADL-Treatment Feedin (Pt able to complete own set up and use regular utensils to eat.) Eating (QC): 6 Groomin (Pt able to brush hair and teeth sitting at sink in w/c.) Oral Hygiene (QC): 6 (with safety concerns STM. ) Bathin (Pt using shower chair with cutout to bathe. Pt required assist to reach buttocks. Pt able to wash LE w/o AE today. Pt able to rinse and dry self. ) Bathing Location: L Arm, R Arm, L Upper Leg, R Upper Leg, L Lower Leg (including foot), R Lower Leg (including foot), Chest, Abdomen, Perineal Area Shower/Bathe Self (QC): 3 Upper Extremity Dressin (Pt able to doff/don bra and shirt by self sitting EOB. Set up. ) Upper Body Dressing (QC): 4 (due to STM. ) Lower Extremity Dressin (Pt able to don/doff briefs and pants by self leaning side to side while sitting EOB. Pt able to don/doff socks sitting EOB. Set up. ) Lower Body Dressing (QC): 4 (saftey concerns due to STM. ) On/Off Footwear (QC): 5 Toiletin Toileting Hygiene (QC): 1 Toilet/Commode Transfer: 1 (Using shower chair with cutout, pt uses sliding board transfer with assist x2.) Toilet Transfer (QC): 1 Shower: 2 (Pt using rolling shower chair with cutout to transport into the shower.) Assessment/Plan Assessment and Plan Assess & Plan/Chief Complaint Assessment: Debility following sacral fracture and spinal cord injury with flaccidity or spasticity of the lower extremities Bipolar Anxiety Urinary retention due to neurogenic bladder Fisher cath likely will need in/out caths versus SP catheter Fecal incontinence Anemia Chest pain chronic Muscle spasms Plan: Monitor pain Monitor bowel and bladder Baclofen for muscle spasms and increase the dose IRF protocol Urology appreciated Try to wean off pain medication Low dose of hydroxyzine for anxiety she has a benzodiazepine dependency history Trauma surgery appt 4 weeks Decrease pain meds (1) Closed fracture of sacrum Status: Acute Qualifiers: Encounter type: subsequent encounter Zone of sacrum fracture: unspecified portion of sacrum Fracture healing: with nonunion Qualified Codes: S32.10XK - Unspecified fracture of sacrum, subsequent encounter for fracture with nonunion (2) Hyponatremia Status: Acute (3) Traumatic retroperitoneal hematoma Status: Acute Qualifiers: Encounter type: subsequent encounter Qualified Codes: S36.892D - Contusion of other intra-abdominal organs, subsequent encounter (4) Sacral fracture, closed Status: Acute (5) Right rib fracture Status: Acute Qualifiers: Encounter type: subsequent encounter Rib fracture type: multiple ribs F racture type: closed Fracture healing: with routine healing Qualified Codes: S22.41XD - Multiple fractures of ribs, right side, subsequent encounter for fracture with routine healing (6) Rhabdomyolysis Status: Resolved Resolution Date/Time: 10/25/18 @ 06:25 (7) Fall Status: Acute Qualifiers: Encounter type: subsequent encounter Qualified Codes: W19.XXXD - Unspecified fall, subsequent encounter (8) Fisher catheter in place Status: Acute (9) Neurogenic bladder Status: Acute (10) HTN (hypertension) Status: Chronic Qualifiers: Hypertension type: essential hypertension Qualified Codes: I10 - Essential (primary) hypertension (11) Hypothyroidism Status: Chronic Qualifiers: Hypothyroidism type: acquired Qualified Codes: E03.9 - Hypothyroidism, unspecified (12) Anemia Status: Chronic Qualifiers: Anemia type: unspecified type Qualified Codes: D64.9 - Anemia, unspecified (13) Fecal incontinence Status: Acute Qualifiers: Fecal incontinence type: unspecified Qualified Codes: R15.9 - Full incontinence of feces (14) Chest pain Status: Chronic Qualifiers: Chest pain type: unspecified Qualified Codes: R07.9 - Chest pain, unspecif ied (15) Bipolar 1 disorder Status: Chronic (16) MGUS (monoclonal gammopathy of unknown significance) Status: Chronic (17) COPD (chronic obstructive pulmonary disease) Status: Chronic (18) DVT prophylaxis Status: Acute ARIELA ESPINOZA DO Nov 07, 2018 10:47
--- NOTE | 2018-11-07 11:00 | Physical Therapy Daily Note ---
PT Daily Note-Current Subjective Pt sitting in W/C in room upon arrival. Pt agrees to PT. Pt reports felling anxious about Slide Board transfer. "They weren't as good today." Pain Numeric Pain Scale: 5-Moderate Pain Location Body Site: Sacrum Pain Description: Ache Mental Status Patient Orientation: Person, Confused, Place Transfers Therapy Code Descriptions/Definitions Functional [place] Measure: 0=Not Assessed/NA 4=Minimal Assistance 1=Total Assistance 5=Supervision or Setup 2=Maximal Assistance 6=Modified [place] 3=Moderate Assistance 7=Complete [place] Therapy Quality Codes: 6 Independent with activity with or without an assistive device 5 Patient requires set up or clean up by helper. Patient completes activity by themselves 4 Supervision or touching assist (CGA). [place] provide cues , steadying assist 3 The helper provides less than half the effort to complete the activity 2 The helper provides more than half the effort to complete the activity 1 Dependent. The helper does all the effort to complete an activity 7 Patient refused to complete or attempt activity 9 The patient did not perform the activity before the current illness or injury 88 Not attempted due to Medical conditions or safety concerns Scootin Supine to/from Sit: 5 Sit to Lying (QC): 5 Chair/Irt-ne-Fmqut Xfer(QC): 4 Bed to/from Chair: 4 Weight Bearing Right Lower Extremity: Right Non Weight Bearing Left Lower Extremity: Left Non Weight Bearing Gait Training Does the Patient Walk?: No and Walking Goal NOT indicated Exercises Supine Ex: Ankle pumps, Quad Set, Glut sets, Heel Slides, Scooting, Straight leg raise, Hip abd/add Supine Reps: 15 Treatments Pt completes practice of Slide Board transfer from W/C to EOB then lays Supine to complete Ex with RB as needed. Pt transfers back from EOB to W/C. Pt rest ing at end of tx. with all needs met, call light in hand. Assessment Current Status: Fair Progress Pt takes extended time to complete tasks due to cognitive deficits. Pt also needs redirection to stay on task. PT Short Term Goals Short Term Goals Time Frame: Nov 09, 2018 Transfers (B,C,W/C) (FIM): 3 (slide board bed<>w/c) Wheelchair Distance: 200' PT Fpc Goals Fpc Goals PT Fpc Goals Time Frame: Nov 23, 2018 Transfers (B,C,W/C) (FIM): 4 Sit to Lying (QC): 5 Lying-Sitting on Side/Bed(QC): 5 Sit to Stand (QC): 88 Rollin Roll Left to Right (QC): 5 Chair/Ugi-pv-[place]klir Xfer(QC): 4 Car Transfer (QC): 4 Does the Patient Walk: No and Walking Goal NOT indicated Does the Pt use WC or Scooter?: Yes Wheelchair (FIM): 2 Wheelchair distance (FIM): 5=233-08 ft Distance: 100' Wheelchair Level of Assist: 4 Wheel 50 feet with 2 turns (QC: 5 Stairs (FIM): 0 1 Step (curb) (QC): 88 4 Steps (QC): 88 12 Steps (QC): 88 Picking up an Object (QC): 5 PT Plan Problem List Problem List: Activity Tolerance, Functional Strength, Safety, Transfer Treatment/Plan Treatment Plan: Continue Plan of Care Treatment Plan: Bed Mobility, Concurrent Therapy, Education, Functional Activity Abilio, Functional Strength, Group Therapy, Safety, Therapeutic Exercise, Transfers Treatment Duration: Nov 23, 2018 Frequency: At least 5 of 7 days/Wk (IRF) Estimated Hrs Per Day: 1.5 hours per day Patient and/or Family Agrees t: Yes Safety Risks/Education Patient Education: Transfer Techniques, Correct Positioning, W/C Management, Safety Issues Teaching Recipient: Patient Teaching Methods: Discussion Response to Teaching: Reinforcement Needed Time/GCodes Time In: 915 Time Out: 1000 Total Billed Treatment Time: 45 Total Billed Treatment 1, EX (20m) & FA x2 (25m) CHA FOOTE PTA Nov 07, 2018 11:00
--- NOTE | 2018-11-07 11:00 | NUR ---
DR. LEE HERE TO SEE PATIENT AND #16 FR. CR CATHETER INSERTED WITHOUT DIFFICULTY.
--- NOTE | 2018-11-07 11:10 | Progress Note - Urology ---
Progress Note-Urology Progress Notes/Assess & Plan Progress/Assessment & Plan WANTS CR BACK IN. WE WILL DO THAT TODAY AND CONTINUE MEDICINES. ONCE MORE ACTIVE AND AMBULATING WE WILL TRY AGAIN TOV AND IF FAILED, PLAN SP TUBE. ALL FULLY EXPLAINED TO HER FRANCE LEE MD Nov 07, 2018 11:10
--- NOTE | 2018-11-07 11:26 | NUR ---
RD FOLLOW-UP PMHx: HTN, GERD, chronic constipation, diverticulosis, hypothyroidism Pt was awake and pleasant during follow-up. Pt states current appetite is "fair", an improvement from last assessment. Pt states no new issues with n/v at this time. Pt states some issues with constipation and diarrhea, and reports last BM was 11/06. Est. kcal needs: 3090-9803 kcal (20-25 kcal/kg) Est. Pro needs: 70-85 g Pro (1.0-1.2 g Pro/kg) PES Statement: Inadequate oral intake related to loss of appetite as evidenced by patient interview | chart review INTERVENTION: Continue with current diet order of regular diet. Pt may benefit from nutritional supplementation if poor po intake continues. MONITOR/EVALUATE: Wt Status Hydration Status PO Intake Lab values Oleg Acuña, MS, RD [phone]
--- NOTE | 2018-11-07 11:59 | Physical Therapy Daily Note ---
PT Daily Note-Current Subjective Pt sitting in W/C upon arrival. Pt agrees to PT. Pain Numeric Pain Scale: 5-Moderate Pain Location Body Site: Sacrum Pain Description: Ache Mental Status Patient Orientation: Person, Confused, Place Transfers Therapy Code Descriptions/Definitions Functional [place] Measure: 0=Not Assessed/NA 4=Minimal Assistance 1=Total Assistance 5=Supervision or Setup 2=Maximal Assistance 6=Modified [place] 3=Moderate Assistance 7=Complete [place] Therapy Quality Codes: 6 Independent with activity with or without an assistive device 5 Patient requires set up or clean up by helper. Patient completes activity by themselves 4 Supervision or touching assist (CGA). [place] provide cues , steadying assist 3 The helper provides less than half the effort to complete the activity 2 The helper provides more than half the effort to complete the activity 1 Dependent. The helper does all the effort to complete an activity 7 Patient refused to complete or attempt activity 9 The patient did not perform the activity before the current illness or i njury 88 Not attempted due to Medical conditions or safety concerns Scootin Supine to/from Sit: 5 Sit to Lying (QC): 5 Weight Bearing Right Lower Extremity: Right Non Weight Bearing Left Lower Extremity: Left Non Weight Bearing Treatments Pt practices slide board transfer from W/C to EOB. Pt resting Supine at end of tx with all needs met, call light next to pt. Nurse is present for Catheter insertion. Assessment Current Status: Fair Progress Pt still needs VC for completion of transfer although no Physical Cues or assistance needed. PT Short Term Goals Short Term Goals Time Frame: Nov 09, 2018 Transfers (B,C,W/C) (FIM): 3 (slide board bed<>w/c) Wheelchair Distance: 200' PT Vp Foundation Goals Mcfp Goals PT Vp Foundation Goals Time Frame: Nov 23, 2018 Transfers (B,C,W/C) (FIM): 4 Sit to Lying (QC): 5 Lying-Sitting on Side/Bed(QC): 5 Sit to Stand (QC): 88 Rollin Roll Left to Right (QC): 5 Chair/Lwt-vf-Gmlsa Xfer(QC): 4 Car Transfer (QC): 4 Does the Patient Walk: No and Walking Goal NOT indicated Does the Pt use WC or Scooter?: Yes Wheelchair (FIM): 2 Wheelchair distance (FIM): 2=688-09 ft Distance: 100' Wheelchair Level of Assist: 4 Wheel 50 feet with 2 turns (QC: 5 Stairs (FIM): 0 1 Step (curb) (QC): 88 4 Steps (QC): 88 12 Steps (QC): 88 Picking up an Object (QC): 5 PT Plan Problem List Problem List: Activity Tolerance, Functional Strength, Safety, Transfer Treatment/Plan Treatment Plan: Continue Plan of Care Treatment Plan: Bed Mobility, Concurrent Therapy, Education, Functional Activity Abilio, Functional Strength, Group Therapy, Safety, Therapeutic Exercise, Transfers Treatment Duration: Nov 23, 2018 Frequency: At least 5 of 7 days/Wk (IRF) Estimated Hrs Per Day: 1.5 hours per day Patient and/or Family Agrees t: Yes Safety Risks/Education Patient Education: Transfer Techniques, Correct Positioning, Safety Issues Teaching Recipient: Patient Response to Teaching: Verbalize Understanding Time/GCodes Time In: 1130 Time Out: 1200 Total Billed Treatment Time: 30 Total Billed Treatment 1, FA x2 (30m) CHA FOOTE PROGRAM DIRECTOR/TRAFFIC DIRECTOR Nov 07, 2018 11:59
[2018-11-07 16:37] VITALS: BP 119/71
[2018-11-07] MEDS: TAMSULOSIN 0.4 MG (FLOMAX) CAP PO SCH (17:00)
[2018-11-07] MEDS: MONTELUKAST 10 MG (SINGULAIR) TAB PO SCH (21:03)
[2018-11-07] MEDS: ISOSORBIDE MONONITRATE 60 MG (IMDUR) TAB PO SCH (21:03)
[2018-11-07] MEDS: GABAPENTIN 400 MG (NEURONTIN) CAP PO SCH (21:03)
[2018-11-07] MEDS: SENNA W/DOCUSATE (SENOKOT S) TABLET PO SCH (21:04)
--- NOTE | 2018-11-07 21:40 | NUR ---
PATIENT RATING PAIN 10/10 RN EDUCATED PATIENT ON PAIN SCALE. PATIENT IS SMILING, AT EASE AND CALMLY STATES, "OH YES, IT IS THE WORST PAIN I HAVE EVER FELT." RN REPOSITIONED PATIENT, TRAMADOL PROVIDED. CONTINUE TO MONITOR. PATIENT IS WATCHING TV SMILING. BP 123/72, HR 70.
[2018-11-07 21:45] VITALS: BP 123/72
--- NOTE | 2018-11-07 23:55 | NUR ---
PATIENT C/O INSOMINAI REQUESTING AMBIEN. REFUSES MELATONIN, STATES, 'ALWAYS TAKE AMBIEN." PATIENT IS SMILING AND PLEASANT. STATES HER PAIN IS NOW 9/10, CALMLY WATCHING TELEVISION AND IS VERY APPROPRIATE AND PLEASANT. THANKFUL FOR CARE, DENIES NEEDS OR C/O AT THIS TIME. PATIENT REFUSED SCDS. EDUCATED ON SCD PURPOSE AND ENCOURAGED TO FOLLOW MD ORDERS. RIGHT TO REFUSE SUPPORTED. CONT TO MONITOR.
[2018-11-08] MEDS: ZOLPIDEM 5 MG (AMBIEN) TAB PO PRN ×2 (00:03→22:51)
[2018-11-08] MEDS: VENLAFAXINE 50 MG (EFFEXOR) TABLET PO SCH ×2 (06:06→16:37)
[2018-11-08] MEDS: BETHANECHOL 25 MG (URECHOLINE) TAB PO SCH ×4 (06:06→21:11)
[2018-11-08] MEDS: PANTOPRAZOLE 40 MG (PROTONIX) TAB PO SCH (06:06)
[2018-11-08] MEDS: LEVOTHYROXINE 50 MCG (LEVOTHROID) TAB PO SCH (06:06)
[2018-11-08] MEDS: CALCIUM CARB + VIT D 600 MG (CALCARB + D) TAB PO SCH ×2 (06:06→16:37)
[2018-11-08] MEDS: LINACLOTIDE 290 MCG (LINZESS) CAPSULE PO SCH (06:18)
[2018-11-08] MEDS: DICLOFENAC 1% GEL 100 GM (VOLTAREN) TUBE TOP PRN (06:19)
[2018-11-08 06:35] VITALS: BP 129/70
--- NOTE | 2018-11-08 08:06 | Occupational Ther Daily Note ---
OT Current Status-Daily Note Subjective Pt alert sitting in bed. Pt agrees to therapy. Pt is anxious today. Mental Status/Objective Patient Orientation: Person Therapy Code Descriptions/Definitions Functional [place] Measure: 0=Not Assessed/NA 4=Minimal Assistance 1=Total Assistance 5=Supervision or Setup 2=Maximal Assistance 6=Modified [place] 3=Moderate Assistance 7=Complete [place] Attachments: Blum Catheter ADL-Treatment Pt educated on how to thread catheter through briefs and pants. Pt said she will try to do it tomorrow. Pt needed step by step instructions on how to don pants after she donned briefs with no problem. Pt requires reassurance throughout therapy session and needs therapist approval before placing hands during sliding board transfers and while applying make up. Therapy Code Descriptions/Definitions Functional [place] Measure: 0=Not Assessed/NA 4=Minimal Assistance 1=Total Assistance 5=Supervision or Setup 2=Maximal Assistance 6=Modified [place] 3=Moderate Assistance 7=Complete [place] Therapy Quality Codes: 6 Independent with activity with or without an assistive device 5 Patient requires set up or clean up by helper. Patient completes activity by themselves 4 Supervision or touching assist (CGA). [place] provide cues , steadying assist 3 The helper provides less than half the effort to complete the activity 2 The helper provides more than half the effort to complete the activity 1 Dependent. The helper does all the effort to complete an activity 7 Patient refused to complete or attempt activity 9 The patient did not perform the activity before the current illness or injury 88 Not attempted due to Medical conditions or safety concerns Grooming (FIM): 6 (Pt able to brush hair and teeth sitting in w/c at sink. ) Oral Hygiene (QC): 6 Bathing (FIM): 5 (Pt performed sponge bath sitting EOB. Pt able to wash, rinse, and dry self. Set up. ) Bathing Location: L Arm, R Arm, L Upper Leg, R Upper Leg, L Lower Leg (including foot), R Lower Leg (including foot), Chest, Abdomen, Buttocks, Perineal Area Shower/Bathe Self (QC): 4 (due to safety concerns pt is inconsistent with knowing weight bearing status and needing step by step instructions. ) Upper Body (FIM): 5 (Pt able to doff/don bra and shirt by self sitting EOB. Set up. ) Upper Body Dressing (QC): 5 Lower Body Dressing (FIM): 4 (Pt required assist to thread catheter through brief and and pants. Pt able to don/doff briefs and pants sitting EOB. Pt need step by step instructions on how to don pants. Pt able to don socks sitting EOB. Pt inconsistent with skills due to anxiety.) Lower Body Dressing (QC): 3 On/Off Footwear (QC): 5 Transfers (B, C, W/C) (FIM): 5 (Pt able to place sliding board by self. Pt requires SBA while using sliding board. Pt requires VC's to push up with UE during sliding board transfers. ) Other Treatment Pt propelled self using w/c to therapy gym. Pt participated in duration 15 min 20 resistance arm bike exercise to increase UE strength for daily functional activity tasks. Pt completed 3 set 10 reps arm push ups while sitting in w/c. PT met pt in therapy gym. All needs met with pt before OT departure. Education OT Patient Education: Reviewed precautions (Pt is inconsistent with knowing weight bearing status.), Other (threading catheter through briefs and pants. ) Teaching Recipient: Patient Teaching Methods: Demonstration, Discussion Response to Teaching: Verbalize Understanding, Return Demonstration, Reinforcement Needed OT Short Term Goals Short Term Goals Time Frame: Nov 07, 2018 Eating(FIM): 5 Grooming(FIM): 5 Bathing(FIM): 4 Upper Body Dressing(FIM): 4 Lower Body Dressing(FIM): 3 Toileting(FIM): 3 Transfers (B,C,W/C) (FIM): 3 (slide board bed<>w/c) Toilet/Commode Transfer(FIM): 3 Additional Short Term Goals: 1-Demonstrate ADL Tasks, 2-Verbalize Understanding, 3-ImproveStrength/Abilio 1=Demonstrate adherence to instructed precautions during ADL tasks. 2=Patient will verbalize/demonstrate understanding of assistive devices/modifications for ADL. 3=Patient will improve strength/tolerance for activity to enable patient to perform ADL's. OT Chcf Goals Glove Pairer Goals Time Frame: Nov 21, 2018 Eating (FIM): 6 Eating (QC): 6 Groomin Oral Hygiene (QC): 5 Bathing(FIM): 4 Shower/Bathe Self (QC): 4 Upper Body Dressing(FIM): 5 Upper Body Dressing (QC): 5 Lower Body Dressing(FIM): 5 Lower Body Dressing (QC): 5 On/Off Footwear (QC): 5 Toileting(FIM): 5 Toileting Hygiene (QC): 5 Transfers (B,C,W/C) (FIM): 5 Toilet/Commode Transfer(FIM): 5 Toilet/Commode Transfer (QC): 5 Shower Transfer(FIM): 3 Additional Goals: 1-Demonstrate ADL Tasks, 2-Verbalize Understanding, 3- ImproveStrength/Abilio 1=Demonstrate adherence to instructed precautions during ADL tasks. 2=Patient will verbalize/demonstrate understanding of assistive devices/modifications for ADL. 3=Patient will improve strength/tolerance for activity to enable patient to perform ADL's. OT Education/Plan Problem List/Assessment Assessment: Decreased Activ Tolerance, Decreased UE Strength Discharge Recommendations Plan/Recommendations: Continue POC Treatment Plan/Plan of Care Patient would benefit from OT for education, treatment and training to promote independence in ADL's, mobility, safety and/or upper extremity function for ADL's. Plan of Care: ADL Retraining, Functional Mobility, Group Exercise/Act as Ind, UE Funct Exercise/Act Treatment Duration: Nov 21, 2018 Frequency: At least 5 of 7 days/Wk (IRF) Estimated Hrs Per Day: 1.5 hours per day Agreement: Yes Rehab Potential: Fair Time/GCodes Start Time: 06:50 Stop Time: 08:05 Total Time Billed (hr/min): 75 Billed Treatment Time 1 visit- ADL 3 (45 min) EX 2 (30 min) NATE PROCTOR Nov 08, 2018 08:06
--- NOTE | 2018-11-08 08:53 | Physical Therapy Daily Note ---
PT Daily Note-Current Subjective Pt sitting in W/C in Therapy Gym after just finishing with OT. Pt agrees to PT. Pain Numeric Pain Scale: 5-Moderate Pain Location Body Site: Sacrum Pain Description: Ache Mental Status Patient Orientation: Person, Confused, Place Attachments: Blum Catheter Transfers Therapy Code Descriptions/Definitions Functional [place] Measure: 0=Not Assessed/NA 4=Minimal Assistance 1=Total Assistance 5=Supervision or Setup 2=Maximal Assistance 6=Modified [place] 3=Moderate Assistance 7=Complete [place] Therapy Quality Codes: 6 Independent with activity with or without an assistive device 5 Patient requires set up or clean up by helper. Patient completes activity by themselves 4 Supervision or touching assist (CGA). [place] provide cues , steadying assist 3 The helper provides less than half the effort to complete the activity 2 The helper provides more than half the effort to complete the activity 1 Dependent. The helper does all the effort to complete an activity 7 Patient refused to complete or attempt activity 9 The patient did not perform the activity before the current illness or injury 88 Not attempted due to Medical conditions or safety concerns Scootin Supine to/from Sit: 4 Sit to Lying (QC): 4 Chair/Qrn-hd-Xsnqn Xfer(QC): 5 Bed to/from Chair: 5 Weight Bearing Right Lower Extremity: Right Non Weight Bearing Left Lower Extremity: Left Non Weight Bearing Wheelchair Training Does the Pt Use a Wheelchair?: Yes Wheelchair (FIM): 5 Wheelchair Distance: 3=150 ft Distance: 150' Wheelchair Level of Assist: 5 Wheel 50 ft with 2 turns (QC): 5 Wheel 150 ft (QC): 5 Type of Wheelchair: Manual Pt needs occasional VC for sequencing jeremy. with turns but improved over previous tx. Exercises Supine Ex: Ankle pumps, Quad Set, Glut sets, Heel Slides, Short Arc Quads, Straight leg raise, Hip abd/add Supine Reps: 15 Seated Therapy Exercises: Long arc quads, Hip flexion, Kicking activity, Hamstring Curls Seated Reps: 15 Treatments Pt transfers from W/C to EOM using Slide board. Pt lays Supine and completes EX on mat. After short RB, Pt transfers from EOM back to W/C. Pt completes W/C mobility then Seated EX in W/C. Pt then returns to room to rest at end of tx with all needs met, call light in hand. Assessment Current Status: Good Progress Pt showed better retention of VC for transfers and W/C mobility today. Pt still demonstrates anxiety with transfers. PT Short Term Goals Short Term Goals Time Frame: Nov 09, 2018 Transfers (B,C,W/C) (FIM): 3 (slide board bed<>w/c) Wheelchair Distance: 200' PT Fci Goals Fci Goals PT Fci Goals Time Frame: Nov 23, 2018 Transfers (B,C,W/C) (FIM): 4 Sit to Lying (QC): 5 Lying-Sitting on Side/Bed(QC): 5 Sit to Stand (QC): 88 Rollin Roll Left to Right (QC): 5 Chair/Ldp-gm-Xkzux Xfer(QC): 4 Car Transfer (QC): 4 Does the Patient Walk: No and Walking Goal NOT indicated Does the Pt use WC or Scooter?: Yes Wheelchair (FIM): 2 Wheelchair distance (FIM): 6=272-75 ft Distance: 100' Wheelchair Level of Assist: 4 Wheel 50 feet with 2 turns (QC: 5 Stairs (FIM): 0 1 Step (curb) (QC): 88 4 Steps (QC): 88 12 Steps (QC): 88 Picking up an Object (QC): 5 PT Plan Problem List Problem List: Activity Tolerance, Functional Strength, Safety, Transfer Treatment/Plan Treatment Plan: Continue Plan of Care Treatment Plan: Bed Mobility, Concurrent Therapy, Education, Functional Activity Abilio, Functional Strength, Group Therapy, Safety, Therapeutic Exercise, Transfers Treatment Duration: Nov 23, 2018 Frequency: At least 5 of 7 days/Wk (IRF) Estimated Hrs Per Day: 1.5 hours per day Patient and/or Family Agrees t: Yes Safety Risks/Education Patient Education: Transfer Techniques, Correct Positioning, W/C Management, Safety Issues Teaching Recipient: Patient Teaching Methods: Discussion Response to Teaching: Verbalize Understanding Time/GCodes Time In: 805 Time Out: 850 Total Billed Treatment Time: 45 Total Billed Treatment 1, WCH (15m) & EX x2 (30m) CHA FOOTE PTA Nov 08, 2018 08:53
[2018-11-08] MEDS: busPIRone 10 MG (BUSPAR) TAB PO SCH ×3 (09:00→21:11)
[2018-11-08] MEDS: IBUPROFEN 800 MG (MOTRIN) TAB PO SCH ×3 (09:00→21:11)
[2018-11-08] MEDS: OLANZapine 5 MG (ZyPREXA) TAB PO SCH (09:00)
[2018-11-08] MEDS: ESTROGENS CONJUGATED 0.45 MG (PREMARIN) TAB PO SCH (09:00)
[2018-11-08] MEDS: LORATADINE (CLARITIN) 10 MG TAB PO SCH (09:00)
[2018-11-08] MEDS: ENOXAPARIN 30 MG/0.3 ML (LOVENOX) SYR SC SCH ×2 (09:02→21:12)
[2018-11-08] MEDS: FLUTICASONE NASAL SPRAY (FLONASE) 16 GM BTL NS SCH ×2 (09:04→21:13)
[2018-11-08] MEDS: IPRATROPIUM 0.03% NS SCH ×3 (09:04→21:13)
[2018-11-08] MEDS: POLYETHYLENE GLYCOL 17 GM (MIRALAX) PACK PO SCH ×2 (09:05→21:12)
--- NOTE | 2018-11-08 09:33 | Progress Note - Urology ---
Progress Note-Urology Progress Notes/Assess & Plan Progress/Assessment & Plan PATIENT HAPPY WITH CR FOR NOW. WE WILL SEE HER PRN Final Diagnosis URINE RETENTION FRANCE LEE MD Nov 08, 2018 09:33
--- NOTE | 2018-11-08 09:46 | Speech Therapy Daily Note ---
Speech Daily Progress Note Subjective Date Seen by Provider: Nov 08, 2018 Time Seen by Provider: 00:30 Patient was resting in her chair after finishing her OT and PT sessions. Objective Patient completed a series of problem solving tasks related to her needs at home with 88% given 15% verbal cues. Assessment Assessment Current Status: Good Progress Treatment Plan Continue Plan of Care Communication Comprehension: 5 Expression: 4 Social Cognition Social Interaction: 6 Problem Solvin Memory: 3 Speech Short Term Goals Short Term Goals Short Term Goals 1) The patient will complete memory tasks with 80% or greater with minimal cues. 2) The patient will complete problem solving tasks with 80% or greater with minimal cues. 3) The patient will complete safety awareness tasks with 80% or greater with minimal cues. Speech Engine Research Engineer Goals Engine Research Engineer Goals The patient will improve cognitive skills in order to return home safely. Speech-Plan Patient/Family Goals Patient/Family Goals: The patient plans on returning home within the next week. Treatment Plan Speech Therapy Treatment Plan: Continue Plan of Care The patient continues to make progress with cognitive function. Treatment Duration: Nov 15, 2018 Frequency: 5 times per week Estimated Hrs Per Day: .5 hour per day Rehab Potential: Fair Barriers to Learning: Patient has cognitive deficits, however these are improving. Pt/Family Agrees to Plan: Yes Safety Risks/Education Teaching Recipient: Patient Teaching Methods: Discussion Response to Teaching: Verbalize Understanding Education Topics Provided: Continued safety upon her return home. Time Speech Therapy Time In: 09:00 Speech Therapy Time Out: 09:30 Total Billed Time: 30 Billed Treatment Time [address] Nov 08, 2018 09:46
[2018-11-08] MEDS: RT-ADVAIR HFA 45/21 MCG PER PUFF IH SCH ×2 (10:11→18:49)
--- NOTE | 2018-11-08 11:00 | NUR ---
HAS EXPELLED 3 DIARRHEA STOOLS (INCONTINENT) IN THE PAST HOUR. PATIENT STATES DOES NOT WANT TO TAKE LINZESS ANY MORE.
--- NOTE | 2018-11-08 11:02 | PM&R Progress Note ---
Subjective HPI/CC On Admission Date Seen by Provider: Nov 08, 2018 Time Seen by Provider: 08:30 CC: Debility following sacral fracture and subsequent partial paraplegia Pt is a 67 y/o WF w/ hx of Bipolar d/o, expressive aphasia, HTN, and asthma, who is here from [facility] in [place], [place] after recent fall 2/2 vertigo and unsteady gait at her home which resulted in nondisplaced fracture of the left inferior and superior pubic ramus, a sacral fracture with mild displacement of 1 cm, a mild T12 compression fracture, and posterior fracture of right 9th rib. Pt was admitted to ICU at the time and ortho surg was consulted. Pt was stabilized and sent to [place] at a tertiary higher level care [facility]. Sacroiliac joints were bridged w/ 2 surgical screws. Rates LLE pain 10/10 at this time. Also c/o muscle spasms in RLE. says Flexeril is not helping. Pt currently has a fisher in place, recent CT showed distended bladder, no hematuria. currently No focal deficits. Pt has chronic constipation and is intermittently incontinent of bowels. Had regular bladder function prior to fall. Reports hx of recent falls as well. Prior to this encounter, pt lived alone at home and ambulated using a walker. Pt has a daughter who lives 23 miles away from her and is able to visit her MWF. 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 Pt was discharged from [place] with the following meds: PERCOCET 5-325MG 1 TAB Q6H PRN CALCIUM +D 500-200 BID DOCUSATE-SENNA 50-8.6MG 2 TABS HS LOVENOX 30MG SUBQ Q12 HOURS X 14 DAYS Pt has seen: PCP Dr. Kaitlynn Martinez Urologist Dr. Harrell (has f/u on 10/29/18) Ortho Dr. Mccullough (has f/u on 10/29/18) Per Brandie Moreno [facility] Chief complaint: Debility following sacral fracture. HPI: This is a 67yoWF clinic Pt of [facility] that I briefly saw two weeks ago when she was admitted over the weekend after suffering a fall and sustaining a sacral fracture. It became unstable so orthopedic surgery recommended transfer to higher level of care to [place] and I supported that move. She did undergo surgery to repair that by trauma surgery orthopedics and a screw was placed for stability. She is still having significant neurological deficit since that was completed, remains incontinent of stool and neurogenic bladder retention requiring fisher catheter administration. We will work on transfers to a wheelchair. We encourage her to be up in a chair. Next week appointment scheduled with urology and trauma surgery and it will be assessed at that point regarding additional recommendations. Percocet is barely used now, will rely mostly on Tylenol and did not receive any transfusion, Hgb of 8.7 and is not on any antibiotics. Prior level of functioning was independent without the use of assistive devices so will work towards wheelchair mobility since likely the neurological deficit could be permanent. Subjective/Events-last exam Fisher was put back in at her request. Discharge is planned for [facility]. Overall is doing much better but having significant debility. Unsure of recovery potential. Checked meds and labs Conferred with manager convention therapy notes Review of Systems Neurological: Weakness, Numbness, Incoordination Objective Exam Vital Signs Vital Signs Date Time Temp Pulse Resp B/P (MAP) Pulse Ox O2 Delivery O2 Flow Rate FiO2 11/08/18 21:09 84 128/79 (95) 11/08/18 18:49 94 Room Air 11/08/18 17:06 37.2 18 Capillary Refill : Less Than 3 Seconds General Appearance: No Apparent Distress, WD/WN, Anxious, Chronically ill HEENT: PERRL/EOMI, Normal ENT Inspection, Pharynx Normal Neck: Full Range of Motion, Normal Inspection, Non Tender, Supple Respiratory: Chest Non Tender, Lungs Clear, Normal Breath Sounds, No Accessory Muscle Use, No Respiratory Distress Cardiovascular: Regular Rate, Rhythm, No Edema, No Gallop, No JVD, No Murmur, Normal Peripheral Pulses Gastrointestinal: Normal Bowel Sounds, No Organomegaly, No Pulsatile Mass, Soft Extremity: Normal Capillary Refill, Normal Inspection, Non Tender, No Calf Tenderness, No Pedal Edema, Other (strength right lower leg 1/5, left 1/5) Neurologic/Psychiatric: Alert, Oriented x3, Normal Mood/Affect, head start director II-XII Norm as Tested, Motor Weakness (lower leg parpalegia) Skin: Normal Color, Warm/Dry Lymphatic: No Adenopathy Results/Procedures Lab Patient resulted labs reviewed. FIM Transfers Therapy Code Descriptions/Definitions Functional [place] Measure: 0=Not Assessed/NA 4=Minimal Assistance 1=Total Assistance 5=Supervision or Setup 2=Maximal Assistance 6=Modified [place] 3=Moderate Assistance 7=Complete [place] Therapy Quality Codes: 6 Independent with activity with or without an assistive device 5 Patient requires set up or clean up by helper. Patient completes activity by themselves 4 Supervision or touching assist (CGA). [place] provide cues , steadying assist 3 The helper provides less than half the effort to complete the activity 2 The helper provides more than half the effort to complete the activity 1 Dependent. The helper does all the effort to complete an activity 7 Patient refused to complete or attempt activity 9 The patient did not perform the activity before the current illness or injury 88 Not attempted due to Medical conditions or safety concerns Transfers (B, C, W/C) (FIM): 5 (Pt able to place sliding board by self. Pt requires SBA while using sliding board. Pt requires VC's to push up with UE during sliding board transfers. ) Scootin Rollin Roll Left to Right (QC): 1 Supine to/from Sit: 4 Sit to/from Stand: 0 (NWB bilateral LE) Sit to Lying (QC): 4 Sit to Stand (QC): 88 Chair/Qzr-dh-[place]mv Xfer(QC): 5 Bed to/from Chair: 5 Car Transfer (QC): 88 Gait Training Does the Patient Walk?: No and Walking Goal NOT indicated Wheelchair Training Does the Pt Use a Wheelchair?: Yes Wheelchair (FIM): 5 Wheelchair Distance: 3=150 ft Distance: 150' Wheelchair Level of Assist: 5 Wheel 50 ft with 2 turns (QC): 5 Wheel 150 ft (QC): 5 Type of Wheelchair: Manual Stair Training Stairs (FIM): 0 1 Step (curb) (QC): 88 4 Steps (QC): 88 12 Steps (QC): 88 Balance Picking up an Object (QC): 4 Mental Status/Objective Comprehension: 5 Expression: 4 Social Interaction: 6 Problem Solvin Memory: 3 ADL-Treatment Feedin (Pt able to complete own set up and use regular utensils to eat.) Eating (QC): 6 Groomin (Pt able to brush hair and teeth sitting in w/c at sink. ) Oral Hygiene (QC): 6 Bathin (Pt performed sponge bath sitting EOB. Pt able to wash, rinse, and dry self. Set up. ) Bathing Location: L Arm, R Arm, L Upper Leg, R Upper Leg, L Lower Leg (including foot), R Lower Leg (including foot), Chest, Abdomen, Buttocks, Perineal Area Shower/Bathe Self (QC): 4 (due to safety concerns pt is inconsistent with knowing weight bearing status and needing step by step instructions. ) Upper Extremity Dressin (Pt able to doff/don bra and shirt by self sitting EOB. Set up. ) Upper Body Dressing (QC): 4 (safety concerns due to STM. ) Lower Extremity Dressin (Pt required assist to thread catheter through brief and and pants. Pt able to don/doff briefs and pants sitting EOB. Pt neeed step by step instructions on how to don pants. Pt able to don socks sitting EOB. ) Lower Body Dressing (QC): 3 On/Off Footwear (QC): 5 Toiletin Toileting Hygiene (QC): 1 Toilet/Commode Transfer: 1 (Using shower chair with cutout, pt uses sliding board transfer with assist x2.) Toilet Transfer (QC): 1 Shower: 2 (Pt using rolling shower chair with cutout to transport into the shower.) Assessment/Plan Assessment and Plan Assess & Plan/Chief Complaint Assessment: Debility following sacral fracture and spinal cord injury with flaccidity or spasticity of the lower extremities Bipolar Anxiety Urinary retention due to neurogenic bladder Fisher cath likely will need in/out caths versus SP catheter Fecal incontinence Anemia Chest pain chronic Muscle spasms Plan: Monitor pain Monitor bowel and bladder Baclofen for muscle spasms and increase the dose IRF protocol Urology appreciated Try to wean off pain medication Low dose of hydroxyzine for anxiety she has a benzodiazepine dependency history Trauma surgery appt 4 weeks Decrease pain meds NH at DC (1) Closed fracture of sacrum Status: Acute Qualifiers: Encounter type: subsequent encounter Zone of sacrum fracture: unspecified portion of sacrum Fracture healing: with nonunion Qualified Codes: S32.10XK - Unspecified fracture of sacrum, subsequent encounter for fracture with nonunio n (2) Hyponatremia Status: Acute (3) Traumatic retroperitoneal hematoma Status: Acute Qualifiers: Encounter type: subsequent encounter Qualified Codes: S36.892D - Contusion of other intra-abdominal organs, subsequent encounter (4) Sacral fracture, closed Status: Acute (5) Right rib fracture Status: Acute Qualifiers: Encounter type: subsequent encounter Rib fracture type: multiple ribs Fracture type: closed Fracture healing: with routine healing Qualified Codes: S22.41XD - Multiple fractures of ribs, right side, subsequent encounter for fracture with routine healing (6) Rhabdomyolysis Status: Resolved Resolution Date/Time: 10/25/18 @ 06:25 (7) Fall Status: Acute Qualifiers: Encounter type: subsequent encounter Qualified Codes: W19.XXXD - Unspecified fall, subsequent encounter (8) Fisher catheter in place Status: Acute (9) Neurogenic bladder Status: Acute (10) HTN (hypertension) Status: Chronic Qualifiers: Hypertension type: essential hypertension Qualified Codes: I10 - Essential (primary) hypertension (11) Hypothyroidism Status: Chronic Qualifiers: Hypothyroidism type: acquired Qualified Codes: E03.9 - Hypothyroidism, unspecified (12) Anemia Status: Chronic Qualifiers: Anemia type: unspecified type Qualified Codes: D64.9 - Anemia, unspecified (13) Fecal incontinence Status: Acute Qualifiers: Fecal incontinence type: unspecified Qualified Codes: R15.9 - Full incontinence of feces (14) Chest pain Status: Chronic Qualifiers: Chest pain type: unspecified Qualified Codes: R07.9 - Chest pain, unspecified (15) Bipolar 1 disorder Status: Chronic (16) MGUS (monoclonal gammopathy of unknown significance) Status: Chronic (17) COPD (chronic obstructive pulmonary disease) Status: Chronic (18) DVT prophylaxis Status: Acute ARIELA ESPINOZA DO Nov 08, 2018 11:02
--- NOTE | 2018-11-08 13:19 | NUR ---
Received authorization for a continued stay of 7 days from [facility]. states a discharge plan is to be formulated within that timeframe. At patient's request, a referral will be made to [facility], as discharge nears. Will continue to follow.
--- NOTE | 2018-11-08 15:00 | Physical Therapy Daily Note ---
PT Daily Note-Current Subjective Pt laying Supine in bed upon arrival. Pt agrees to PT. Pain Numeric Pain Scale: 8 Location Body Site: Sacrum Pain Description: Ache Mental Status Patient Orientation: Person, Confused, Place Transfers Therapy Code Descriptions/Definitions Functional [place] Measure: 0=Not Assessed/NA 4=Minimal Assistance 1=Total Assistance 5=Supervision or Setup 2=Maximal Assistance 6=Modified [place] 3=Moderate Assistance 7=Complete [place] Therapy Quality Codes: 6 Independent with activity with or without an assistive device 5 Patient requires set up or clean up by helper. Patient completes activity by themselves 4 Supervision or touching assist (CGA). [place] provide cues , steadying assist 3 The helper provides less than half the effort to complete the activity 2 The helper provides more than half the effort to complete the activity 1 Dependent. The helper does all the effort to complete an activity 7 Patient refused to complete or attempt activity 9 The patient did not perform the activity before the current illness or injury 88 Not attempted due to Medical conditions or safety concerns Weight Bearing Right Lower Extremity: Right Non Weight Bearing Left Lower Extremity: Left Non Weight Bearing Exercises Supine Ex: Ankle pumps, Quad Set, Glut sets, Heel Slides, Straight leg raise, Hip abd/add Supine Reps: 15 (2 sets) Treatments Pt had been having loose stools and this made pt anxious to leave room for tx. Pt completes Supine EX in bed. Pt resting in bed with all needs met, call light in hand. Assessment Current Status: Good Progress Pt tolerated tx well. PT Short Term Goals Short Term Goals Time Frame: Nov 09, 2018 Transfers (B,C,W/C) (FIM): 3 (slide board bed<>w/c) Wheelchair Distance: 150' PT Clay Digger Goals [place] Goals PT Detention Goals Time Frame: Nov 23, 2018 Transfers (B,C,W/C) (FIM): 4 Sit to Lying (QC): 5 Lying-Sitting on Side/Bed(QC): 5 Sit to Stand (QC): 88 Rollin Roll Left to Right (QC): 5 Chair/Hxg-gn-Isfkc Xfer(QC): 4 Car Transfer (QC): 4 Does the Patient Walk: No and Walking Goal NOT indicated Does the Pt use WC or Scooter?: Yes Wheelchair (FIM): 2 Wheelchair distance (FIM): 7=981-54 ft Distance: 100' Wheelchair Level of Assist: 4 Wheel 50 feet with 2 turns (QC: 5 Stairs (FIM): 0 1 Step (curb) (QC): 88 4 Steps (QC): 88 12 Steps (QC): 88 Picking up an Object (QC): 5 PT Plan Problem List Problem List: Activity Tolerance, Functional Strength Treatment/Plan Treatment Plan: Continue Plan of Care Treatment Plan: Bed Mobility, Concurrent Therapy, Education, Functional Activity Abilio, Functional Strength, Group Therapy, Safety, Therapeutic Exercise, Transfers Treatment Duration: Nov 23, 2018 Frequency: At least 5 of 7 days/Wk (IRF) Estimated Hrs Per Day: 1.5 hours per day Patient and/or Family Agrees t: Yes Safety Risks/Education Patient Education: Correct Positioning, Safety Issues Teaching Recipient: Patient Teaching Methods: Discussion Response to Teaching: Verbalize Understanding Time/GCodes Time In: 1330 Time Out: 1400 Total Billed Treatment Time: 30 Total Billed Treatment 1, EX x2 (30m) CHA [employer] FLOOR AUTOMATION MANAGER Nov 08, 2018 15:00
[2018-11-08 17:06] VITALS: BP 135/72
[2018-11-08] MEDS: TAMSULOSIN 0.4 MG (FLOMAX) CAP PO SCH (17:52)
[2018-11-08 21:09] VITALS: BP 128/79
[2018-11-08] MEDS: ISOSORBIDE MONONITRATE 60 MG (IMDUR) TAB PO SCH (21:11)
[2018-11-08] MEDS: GABAPENTIN 400 MG (NEURONTIN) CAP PO SCH (21:11)
[2018-11-08] MEDS: MONTELUKAST 10 MG (SINGULAIR) TAB PO SCH (21:11)
[2018-11-08] MEDS: SENNA W/DOCUSATE (SENOKOT S) TABLET PO SCH (21:12)
[2018-11-09] MEDS: oxyCODONE/APAP 5/325MG (PERCOCET 5) TABLET PO PRN (04:52)
[2018-11-09 05:20] VITALS: BP 138/74
[2018-11-09] MEDS: VENLAFAXINE 50 MG (EFFEXOR) TABLET PO SCH ×2 (06:02→17:06)
[2018-11-09] MEDS: BETHANECHOL 25 MG (URECHOLINE) TAB PO SCH ×4 (06:02→20:26)
[2018-11-09] MEDS: CALCIUM CARB + VIT D 600 MG (CALCARB + D) TAB PO SCH ×2 (06:03→17:06)
[2018-11-09] MEDS: LEVOTHYROXINE 50 MCG (LEVOTHROID) TAB PO SCH (06:03)
[2018-11-09] MEDS: PANTOPRAZOLE 40 MG (PROTONIX) TAB PO SCH (06:03)
[2018-11-09] MEDS: OLANZapine 5 MG (ZyPREXA) TAB PO SCH (08:19)
[2018-11-09] MEDS: ESTROGENS CONJUGATED 0.45 MG (PREMARIN) TAB PO SCH (08:19)
[2018-11-09] MEDS: busPIRone 10 MG (BUSPAR) TAB PO SCH ×3 (08:19→20:25)
[2018-11-09] MEDS: LORATADINE (CLARITIN) 10 MG TAB PO SCH (08:19)
[2018-11-09] MEDS: ENOXAPARIN 30 MG/0.3 ML (LOVENOX) SYR SC SCH ×2 (08:20→20:26)
[2018-11-09] MEDS: IBUPROFEN 800 MG (MOTRIN) TAB PO SCH ×3 (08:20→20:26)
[2018-11-09] MEDS: IPRATROPIUM 0.03% NS SCH ×3 (08:20→20:27)
[2018-11-09] MEDS: FLUTICASONE NASAL SPRAY (FLONASE) 16 GM BTL NS SCH ×2 (08:21→20:27)
[2018-11-09] MEDS: POLYETHYLENE GLYCOL 17 GM (MIRALAX) PACK PO SCH ×2 (09:00→20:27)
--- NOTE | 2018-11-09 11:41 | Physical Therapy Daily Note ---
PT Daily Note-Current Subjective Pt agreeable to PT session, very optimistic and can't wait to be able to begin working on walking again in the future. Pt requesting sponge bath and to be weighed today, information passed on to nursing staff per pt request Pain Numeric Pain Scale: 10-Worst Possible Pain Comment: pt requesting pain med for ater therapy session Appearance Pt in bed awake and alert upon arrival. At end of session, per pt request, pt in bed with call light, phone and bedside table within reach Mental Status Patient Orientation: Person, Place, Time, Eyes Open, Situation Attachments: Blum Catheter Transfers Therapy Code Descriptions/Definitions Functional [place] Measure: 0=Not Assessed/NA 4=Minimal Assistance 1=Total Assistance 5=Supervision or Setup 2=Maximal Assistance 6=Modified [place] 3=Moderate Assistance 7=Complete [place] Therapy Quality Codes: 6 Independent with activity with or without an assistive device 5 Patient requires set up or clean up by helper. Patient completes activity by themselves 4 Supervision or touching assist (CGA). [place] provide cues , steadying assist 3 The helper provides less than half the effort to complete the activity 2 The helper provides more than half the effort to complete the activity 1 Dependent. The helper does all the effort to complete an activity 7 Patient refused to complete or attempt activity 9 The patient did not perform the activity before the current illness or injury 88 Not attempted due to Medical conditions or safety concerns Transfers (B, C, W/C) (FIM): 4 Scootin Rollin Supine to/from Sit: 4 bed mobility with CGA and skilled verb inst for log rolling and use of UE's Weight Bearing Right Lower Extremity: Right Non Weight Bearing Left Lower Extremity: Left Non Weight Bearing Exercises Supine Ex: Heel Slides (BLE's simultaneously to incorporate core strengthening), Straight leg raise (BLE's simultaneously to incorporate core strengthening), Hip abd/add Supine Reps: 20 Seated Therapy Exercises: Ankle pumps, Long arc quads (BLE's simultaneously to incorporate core strengthening), Hip flexion (with abd contraction alternating LE's, feet off floor), Reaching activity (fwd, L, R, rotations, Up, down, crossing midline, feet off floor, sitting EOB), Hip abd/add (simultaneously with knees extended) Seated Reps: 20 (at EOB attempting without UE support) Treatments bed mobility, transfer, sitting balance, functional mobility, LE, UE and core strengthening, activity tolerance, education, safety Assessment Current Status: Good Progress PT Short Term Goals Short Term Goals Time Frame: Nov 09, 2018 Transfers (B,C,W/C) (FIM): 3 (slide board bed<>w/c) Wheelchair Distance: 150' PT Advice Clerk Goals Advice Clerk Goals PT Chcf Goals Time Frame: Nov 23, 2018 Transfers (B,C,W/C) (FIM): 4 Sit to Lying (QC): 5 Lying-Sitting on Side/Bed(QC): 5 Sit to Stand (QC): 88 Rollin Roll Left to Right (QC): 5 Chair/Wyj-gw-Myfch Xfer(QC): 4 Car Transfer (QC): 4 Does the Patient Walk: No and Walking Goal NOT indicated Does the Pt use WC or Scooter?: Yes Wheelchair (FIM): 2 Wheelchair distance (FIM): 5=425-69 ft Distance: 100' Wheelchair Level of Assist: 4 Wheel 50 feet with 2 turns (QC: 5 Stairs (FIM): 0 1 Step (curb) (QC): 88 4 Steps (QC): 88 12 Steps (QC): 88 Picking up an Object (QC): 5 PT Plan Treatment/Plan Treatment Plan: Continue Plan of Care Treatment Plan: Bed Mobility, Concurrent Therapy, Education, Functional Activit y Abilio, Functional Strength, Group Therapy, Safety, Therapeutic Exercise, Transfers Treatment Duration: Nov 23, 2018 Frequency: At least 5 of 7 days/Wk (IRF) Estimated Hrs Per Day: 1.5 hours per day Patient and/or Family Agrees t: Yes Safety Risks/Education Patient Education: Transfer Techniques, Reviewed Precautions, Disease Process, Safety Issues Teaching Recipient: Patient Teaching Methods: Discussion Response to Teaching: Verbalize Understanding Time/GCodes Time In: 828 Time Out: 851 Total Billed Treatment Time: 23 Total Billed Treatment 1 visit, EX x2 units NAY LAZARO PTA Nov 09, 2018 11:40
--- NOTE | 2018-11-09 11:53 | PM&R Progress Note ---
Subjective HPI/CC On Admission Date Seen by Provider: Nov 09, 2018 Time Seen by Provider: 11:15 CC: Debility following sacral fracture and subsequent partial paraplegia Pt is a 67 y/o WF w/ hx of Bipolar d/o, expressive aphasia, HTN, and asthma, who is here from [facility] in [place], [place] after recent fall 2/2 vertigo and unsteady gait at her home which resulted in nondisplaced fracture of the left inferior and superior pubic ramus, a sacral fracture with mild displacement of 1 cm, a mild T12 compression fracture, and posterior fracture of right 9th rib. Pt was admitted to ICU at the time and ortho surg was consulted. Pt was stabilized and sent to [place] at a tertiary higher level care [facility]. Sacroiliac joints were bridged w/ 2 surgical screws. Rates LLE pain 10/10 at this time. Also c/o muscle spasms in RLE. says Flexeril is not helping. Pt currently has a fisher in place, recent CT showed distended bladder, no hematuria. currently No focal deficits. Pt has chronic constipation and is intermittently incontinent of bowels. Had regular bladder function prior to fall. Reports hx of recent falls as well. Prior to this encounter, pt lived alone at home and ambulated using a walker. Pt has a daughter who lives 23 miles away from her and is able to visit her MWF. 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 Pt was discharged from [facility] with the following meds: PERCOCET 5-325MG 1 TAB Q6H PRN CALCIUM +D 500-200 BID DOCUSATE-SENNA 50-8.6MG 2 TABS HS LOVENOX 30MG SUBQ Q12 HOURS X 14 DAYS Pt has seen: PCP Dr. Kaitlynn Martinez Urologist Dr. Harrell (has f/u on 10/29/18) Ortho Dr. Mccullough (has f/u on 10/29/18) Per Brandie Moreno [facility] Chief complaint: Debility following sacral fracture. HPI: This is a 67yoWF clinic Pt of [facility] that I briefly saw two weeks ago when she was admitted over the weekend after suffering a fall and sustaining a sacral fracture. It became unstable so orthopedic surgery recommended transfer to higher level of care to [place] and I supported that move. She did undergo surgery to repair that by trauma surgery orthopedics and a screw was placed for stability. She is still having significant neurological deficit since that was completed, remains incontinent of stool and neurogenic bladder retention requiring fisher catheter administration. We will work on transfers to a wheelchair. We encourage her to be up in a chair. Next week appointment scheduled with urology and trauma surgery and it will be assessed at that point regarding additional recommendations. Percocet is barely used now, will rely mostly on Tylenol and did not receive any transfusion, Hgb of 8.7 and is not on any antibiotics. Prior level of functioning was independent without the use of assistive devices so will work towards wheelchair mobility since likely the neurological deficit could be permanent. Subjective/Events-last exam assisted is being pursued in [place] Feels pretty good otherwise She assures me she will be walking in 4 weeks Unsure the unrealistic expectations status Unsure of recovery potential. Checked meds and labs Conferred with accredited farm manager therapy notes Review of Systems General: Fatigue Objective Exam Vital Signs Vital Signs Date Time Temp Pulse Resp B/P (MAP) Pulse Ox O2 Delivery O2 Flow Rate FiO2 11/09/18 08:47 Room Air 11/09/18 05:20 36.8 72 16 138/74 (95) 97 Capillary Refill : Less Than 3 Seconds General Appearance: No Apparent Distress, WD/WN, Anxious, Chronically ill HEENT: PERRL/EOMI, Normal ENT Inspection, Pharynx Normal Neck: Full Range of Motion, Normal Inspection, Non Tender, Supple Respiratory: Chest Non Tender, Lungs Clear, Normal Breath Sounds, No Accessory Muscle Use, No Respiratory Distress Cardiovascular: Regular Rate, Rhythm, No Edema, No Gallop, No JVD, No Murmur, Normal Peripheral Pulses Gastrointestinal: Normal Bowel Sounds, No Organomegaly, No Pulsatile Mass, Soft Extremity: Normal Capillary Refill, Normal Inspection, Non Tender, No Calf Tenderness, No Pedal Edema, Other (strength right lower leg 1/5, left 1/5) Neurologic/Psychiatric: Alert, Oriented x3, Normal Mood/Affect, treating engineer helper II-XII Norm as Tested, Motor Weakness (lower leg parpalegia) Skin: Normal Color, Warm/Dry Lymphatic: No Adenopathy Results/Procedures Lab Patient resulted labs reviewed. FIM Transfers Therapy Code Descriptions/Definitions Functional [place] Measure: 0=Not Assessed/NA 4=Minimal Assistance 1=Total Assistance 5=Supervision or Setup 2=Maximal Assistance 6=Modified [place] 3=Moderate Assistance 7=Complete [place] Therapy Quality Codes: 6 Independent with activity with or without an assistive device 5 Patient requires set up or clean up by helper. Patient completes activity by themselves 4 Supervision or touching assist (CGA). [place] provide cues , steadying assist 3 The helper provides less than half the effort to complete the activity 2 The helper provides more than half the effort to complete the activity 1 Dependent. The helper does all the effort to complete an activity 7 Patient refused to complete or attempt activity 9 The patient did not perform the activity before the current illness or injury 88 Not attempted due to Medical conditions or safety concerns Transfers (B, C, W/C) (FIM): 4 Scootin Rollin Roll Left to Right (QC): 1 Supine to/from Sit: 4 Sit to/from Stand: 0 (NWB bilateral LE) Sit to Lying (QC): 4 Sit to Stand (QC): 88 Chair/Yzm-lj-Fqipo Xfer(QC): 5 Bed to/from Chair: 5 Car Transfer (QC): 88 Gait Training Does the Patient Walk?: No and Walking Goal NOT indicated Wheelchair Training Does the Pt Use a Wheelchair?: Yes Wheelchair (FIM): 5 Wheelchair Distance: 3=150 ft Distance: 150' Wheelchair Level of Assist: 5 Wheel 50 ft with 2 turns (QC): 5 Wheel 150 ft (QC): 5 Type of Wheelchair: Manual Stair Training Stairs (FIM): 0 1 Step (curb) (QC): 88 4 Steps (QC): 88 12 Steps (QC): 88 Balance Picking up an Object (QC): 4 Mental Status/Objective Comprehension: 5 Expression: 4 Social Interaction: 6 Problem Solvin Memory: 3 ADL-Treatment Feedin (Pt able to complete own set up and use regular utensils to eat.) Eating (QC): 6 Groomin (Pt able to brush hair and teeth sitting in w/c at sink. ) Oral Hygiene (QC): 6 Bathin (Pt performed sponge bath sitting EOB. Pt able to wash, rinse, and dry self. Set up. ) Bathing Location: L Arm, R Arm, L Upper Leg, R Upper Leg, L Lower Leg (including foot), R Lower Leg (including foot), Chest, Abdomen, Buttocks, Perineal Area Shower/Bathe Self (QC): 4 (due to safety concerns pt is inconsistent with knowing weight bearing status and needing step by step instructions. ) Upper Extremity Dressin (Pt able to doff/don bra and shirt by self sitting EOB. Set up. ) Upper Body Dressing (QC): 5 Lower Extremity Dressin (Pt required assist to thread catheter through brief and and pants. Pt able to don/doff briefs and pants sitting EOB. Pt need step by step instructions on how to don pants. Pt able to don socks sitting EOB. Pt inconsistent with skills due to anxiety.) Lower Body Dressing (QC): 3 On/Off Footwear (QC): 5 Toiletin Toileting Hygiene (QC): 1 Toilet/Commode Transfer: 1 (Using shower chair with cutout, pt uses sliding board transfer with assist x2.) Toilet Transfer (QC): 1 Shower: 2 (Pt using rolling shower chair with cutout to transport into the shower.) Assessment/Plan Assessment and Plan Assess & Plan/Chief Complaint Assessment: Debility following sacral fracture and spinal cord injury with flaccidity or spasticity of the lower extremities Bipolar Anxiety Urinary retention due to neurogenic bladder Fisher cath likely will need in/out caths versus SP catheter Fecal incontinence Anemia Chest pain chronic Muscle spasms Plan: Monitor pain Monitor bowel and bladder Baclofen for muscle spasms and increase the dose IRF protocol Urology appreciated Try to wean off pain medication Low dose of hydroxyzine for anxiety she has a benzodiazepine dependency history Trauma surgery appt 4 weeks Decrease pain meds [place] at [place] (1) Closed fracture of sacrum Status: Acute Qualifiers: Encounter type: subsequent encounter Zone of sacrum fracture: unspecified portion of sacrum Fracture healing: with nonunion Qualified Codes: S32.10XK - Unspecified fracture of sacrum, subsequent encounter for fracture with nonunion (2) Hyponatremia Status: Acute (3) Traumatic retroperitoneal hematoma Status: Acute Qualifiers: Encounter type: subsequent encounter Qualified Codes: S36.892D - Contusion of other intra-abdominal organs, subsequent encounter (4) Sacral fracture, closed Status: Acute (5) Right rib fracture Status: Acute Qualifiers: Encounter type: subsequent encounter Rib fracture type: multiple ribs Fracture type: closed Fracture healing: with routine healing Qualified Codes: S22.41XD - Multiple fractures of ribs, right side, subsequent encounter for fracture with routine healing (6) Rhabdomyolysis Status: Resolved Resolution Date/Time: 10/25/18 @ 06:25 (7) Fall Status: Acute Qualifiers: Encounter type: subsequent encounter Qualified Codes: W19.XXXD - Unspecified fall, subsequent encounter (8) Fisher catheter in place Status: Acute (9) Neurogenic bladder Status: Acute (10) HTN (hypertension) Status: Chronic Qualifiers: Hypertension type: essential hypertension Qualified Codes: I10 - Essential (primary) hypertension (11) Hypothyroidism Status: Chronic Qualifiers: Hypothyroidism type: acquired Qualified Codes: E03.9 - Hypothyroidism, unspecified (12) Anemia Status: Chronic Qualifiers: Anemia type: unspecified type Qualified Codes: D64.9 - Anemia, unspecified (13) Fecal incontinence Status: Acute Qualifiers: Fecal incontinence type: unspecified Qualified Codes: R15.9 - Full incontinence of feces (14) Chest pain Status: Chronic Qualifiers: Chest pain type: unspecified Qualified Codes: R07.9 - Chest pain, unspecified (15) Bipolar 1 disorder Status: Chronic (16) MGUS (monoclonal gammopathy of unknown significance) Status: Chronic (17) COPD (chronic obstructive pulmonary disease) Status: Chronic (18) DVT prophylaxis Status: Acute ARIELA ESPINOZA DO Nov 09, 2018 11:53
[2018-11-09] MEDS: RT-ADVAIR HFA 45/21 MCG PER PUFF IH SCH ×2 (15:17→19:57)
[2018-11-09] MEDS: TAMSULOSIN 0.4 MG (FLOMAX) CAP PO SCH (17:06)
[2018-11-09 18:00] VITALS: BP 130/75
[2018-11-09 20:24] VITALS: BP 134/75
[2018-11-09] MEDS: SENNA W/DOCUSATE (SENOKOT S) TABLET PO SCH (20:26)
[2018-11-09] MEDS: ISOSORBIDE MONONITRATE 60 MG (IMDUR) TAB PO SCH (20:26)
[2018-11-09] MEDS: MONTELUKAST 10 MG (SINGULAIR) TAB PO SCH (20:26)
[2018-11-09] MEDS: GABAPENTIN 400 MG (NEURONTIN) CAP PO SCH (20:26)
[2018-11-09] MEDS: ZOLPIDEM 5 MG (AMBIEN) TAB PO PRN (22:57)
[2018-11-10] MEDS: oxyCODONE/APAP 5/325MG (PERCOCET 5) TABLET PO PRN (04:36)
[2018-11-10 05:50] VITALS: BP 133/72
[2018-11-10] MEDS: BETHANECHOL 25 MG (URECHOLINE) TAB PO SCH ×4 (06:11→20:17)
[2018-11-10] MEDS: PANTOPRAZOLE 40 MG (PROTONIX) TAB PO SCH (06:11)
[2018-11-10] MEDS: CALCIUM CARB + VIT D 600 MG (CALCARB + D) TAB PO SCH ×2 (06:11→17:07)
[2018-11-10] MEDS: LEVOTHYROXINE 50 MCG (LEVOTHROID) TAB PO SCH (06:11)
[2018-11-10] MEDS: LINACLOTIDE 290 MCG (LINZESS) CAPSULE PO SCH (06:11)
[2018-11-10] MEDS: VENLAFAXINE 50 MG (EFFEXOR) TABLET PO SCH ×2 (06:11→17:07)
[2018-11-10] MEDS: busPIRone 10 MG (BUSPAR) TAB PO SCH ×3 (08:54→20:16)
[2018-11-10] MEDS: ESTROGENS CONJUGATED 0.45 MG (PREMARIN) TAB PO SCH (08:54)
[2018-11-10] MEDS: IBUPROFEN 800 MG (MOTRIN) TAB PO SCH ×3 (08:54→20:17)
[2018-11-10] MEDS: LORATADINE (CLARITIN) 10 MG TAB PO SCH (08:54)
[2018-11-10] MEDS: ENOXAPARIN 30 MG/0.3 ML (LOVENOX) SYR SC SCH ×2 (08:55→20:17)
[2018-11-10] MEDS: OLANZapine 5 MG (ZyPREXA) TAB PO SCH (08:55)
[2018-11-10] MEDS: POLYETHYLENE GLYCOL 17 GM (MIRALAX) PACK PO SCH ×2 (09:00→20:22)
[2018-11-10] MEDS: FLUTICASONE NASAL SPRAY (FLONASE) 16 GM BTL NS SCH ×2 (09:00→20:18)
[2018-11-10] MEDS: IPRATROPIUM 0.03% NS SCH ×3 (09:05→20:18)
[2018-11-10] MEDS: RT-ADVAIR HFA 45/21 MCG PER PUFF IH SCH ×2 (09:15→19:27)
--- NOTE | 2018-11-10 09:48 | PM&R Progress Note ---
Subjective HPI/CC On Admission Date Seen by Provider: Nov 10, 2018 Time Seen by Provider: 09:00 CC: Debility following sacral fracture and subsequent partial paraplegia Pt is a 67 y/o WF w/ hx of Bipolar d/o, expressive aphasia, HTN, and asthma, who is here from [facility] in [place], [place] after recent fall 2/2 vertigo and unsteady gait at her home which resulted in nondisplaced fracture of the left inferior and superior pubic ramus, a sacral fracture with mild displacement of 1 cm, a mild T12 compression fracture, and posterior fracture of right 9th rib. Pt was admitted to ICU at the time and ortho surg was consulted. Pt was stabilized and sent to [facility] at a tertiary higher level care [facility]. Sacroiliac joints were bridged w/ 2 surgical screws. Rates LLE pain 10/10 at this time. Also c/o muscle spasms in RLE. says Flexeril is not helping. Pt currently has a fisher in place, recent CT showed distended bladder, no hematuria. currently No focal deficits. Pt has chronic constipation and is intermittently incontinent of bowels. Had regular bladder function prior to fall. Reports hx of recent falls as well. Prior to this encounter, pt lived alone at home and ambulated using a walker. Pt has a daughter who lives 23 miles away from her and is able to visit her MWF. 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 Pt was discharged from [facility] with the following meds: PERCOCET 5-325MG 1 TAB Q6H PRN CALCIUM +D 500-200 BID DOCUSATE-SENNA 50-8.6MG 2 TABS HS LOVENOX 30MG SUBQ Q12 HOURS X 14 DAYS Pt has seen: PCP Dr. Kaitlynn Martinez Urologist Dr. Harrell (has f/u on 10/29/18) Ortho Dr. Mccullough (has f/u on 10/29/18) Per Brandie Moreno [facility] Chief complaint: Debility following sacral fracture. HPI: This is a 67yoWF clinic Pt of [facility] that I briefly saw two weeks ago when she was admitted over the weekend after suffering a fall and sustaining a sacral fracture. It became unstable so orthopedic surgery recommended transfer to higher level of care to [facility] and I supported that move. She did undergo surgery to repair that by trauma surgery orthopedics and a screw was placed for stability. She is still having significant neurological deficit since that was completed, remains incontinent of stool and neurogenic bladder retention requiring fisher catheter administration. We will work on transfers to a wheelchair. We encourage her to be up in a chair. Next week appointment scheduled with urology and trauma surgery and it will be assessed at that point regarding additional recommendations. Percocet is barely used now, will rely mostly on Tylenol and did not receive any transfusion, Hgb of 8.7 and is not on any antibiotics. Prior level of functioning was independent without the use of assistive devices so will work towards wheelchair mobility since likely the neurological deficit could be permanent. Subjective/Events-last exam [facility] is being pursued in [place] Feels pretty good otherwise She assures me she will be walking in 4 weeks and tells me this every day Unsure the unrealistic expectations status Unsure of recovery potential. Checked meds and labs Conferred with civil drafter therapy notes Review of Systems Neurological: Weakness, Numbness, Incoordination Objective Exam Vital Signs Vital Signs Date Time Temp Pulse Resp B/P (MAP) Pulse Ox O2 Delivery O2 Flow Rate FiO2 11/10/18 09:15 95 Room Air 11/10/18 05:50 36.2 78 16 133/72 (92) Capillary Refill : Less Than 3 Seconds General Appearance: No Apparent Distress, WD/WN, Anxious, Chronically ill HEENT: PERRL/EOMI, Normal ENT Inspection, Pharynx Normal Neck: Full Range of Motion, Normal Inspection, Non Tender, Supple Respiratory: Chest Non Tender, Lungs Clear, Normal Breath Sounds, No Accessory Muscle Use, No Respiratory Distress Cardiovascular: Regular Rate, Rhythm, No Edema, No Gallop, No JVD, No Murmur, Normal Peripheral Pulses Gastrointestinal: Normal Bowel Sounds, No Organomegaly, No Pulsatile Mass, Soft Extremity: Normal Capillary Refill, Normal Inspection, Non Tender, No Calf Tenderness, No Pedal Edema, Other (strength right lower leg 1/5, left 1/5) Neurologic/Psychiatric: Alert, Oriented x3, Normal 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 FIM Transfers Therapy Code Descriptions/Definitions Functional [place] Measure: 0=Not Assessed/NA 4=Minimal Assistance 1=Total Assistance 5=Supervision or Setup 2=Maximal Assistance 6=Modified [place] 3=Moderate Assistance 7=Complete [place] Therapy Quality Codes: 6 Independent with activity with or without an assistive device 5 Patient requires set up or clean up by helper. Patient completes activity by themselves 4 Supervision or touching assist (CGA). [place] provide cues , steadying assist 3 The helper provides less than half the effort to complete the activity 2 The helper provides more than half the effort to complete the activity 1 Dependent. The helper does all the effort to complete an activity 7 Patient refused to complete or attempt activity 9 The patient did not perform the activity before the current illness or injury 88 Not attempted due to Medical conditions or safety concerns Transfers (B, C, W/C) (FIM): 4 Scootin Rollin Roll Left to Right (QC): 1 Supine to/from Sit: 4 Sit to/from Stand: 0 (NWB bilateral LE) Sit to Lying (QC): 4 Sit to Stand (QC): 88 Chair/Ery-pj-Kogzh Xfer(QC): 5 Bed to/from Chair: 5 Car Transfer (QC): 88 Gait Training Does the Patient Walk?: No and Walking Goal NOT indicated Wheelchair Training Does the Pt Use a Wheelchair?: Yes Wheelchair (FIM): 5 Wheelchair Distance: 3=150 ft Distance: 150' Wheelchair Level of Assist: 5 Wheel 50 ft with 2 turns (QC): 5 Wheel 150 ft (QC): 5 Type of Wheelchair: Manual Stair Training Stairs (FIM): 0 1 Step (curb) (QC): 88 4 Steps (QC): 88 12 Steps (QC): 88 Balance Picking up an Object (QC): 4 Mental Status/Objective Comprehension: 5 Expression: 4 Social Interaction: 6 Problem Solvin Memory: 3 ADL-Treatment Feedin (Pt able to complete own set up and use regular utensils to eat.) Eating (QC): 6 Groomin (Pt able to brush hair and teeth sitting in w/c at sink. ) Oral Hygiene (QC): 6 Bathin (Pt performed sponge bath sitting EOB. Pt able to wash, rinse, and dry self. Set up. ) Bathing Location: L Arm, R Arm, L Upper Leg, R Upper Leg, L Lower Leg (includi ng foot), R Lower Leg (including foot), Chest, Abdomen, Buttocks, Perineal Area Shower/Bathe Self (QC): 4 (due to safety concerns pt is inconsistent with knowing weight bearing status and needing step by step instructions. ) Upper Extremity Dressin (Pt able to doff/don bra and shirt by self sitting EOB. Set up. ) Upper Body Dressing (QC): 5 Lower Extremity Dressin (Pt required assist to thread catheter through br ief and and pants. Pt able to don/doff briefs and pants sitting EOB. Pt need step by step instructions on how to don pants. Pt able to don socks sitting EOB. Pt inconsistent with skills due to anxiety.) Lower Body Dressing (QC): 3 On/Off Footwear (QC): 5 Toiletin Toileting Hygiene (QC): 1 Toilet/Commode Transfer: 1 (Using shower chair with cutout, pt uses sliding board transfer with assist x2.) Toilet Transfer (QC): 1 Shower: 2 (Pt using rolling shower chair with cutout to transport into the shower.) Assessment/Plan Assessment and Plan Assess & Plan/Chief Complaint Assessment: Debility following sacral fracture and spinal cord injury with flaccidity or spasticity of the lower extremities Bipolar Anxiety Urinary retention due to neurogenic bladder Fisher cath likely will need in/out caths versus SP catheter Fecal incontinence Anemia Chest pain chronic Muscle spasms Plan: Monitor pain Monitor bowel and bladder Baclofen for muscle spasms and increase the dose IRF protocol Urology appreciated Try to wean off pain medication Low dose of hydroxyzine for anxiety she has a benzodiazepine dependency history Trauma surgery appt 4 weeks Decrease pain meds NH at [facility] (1) Closed fracture of sacrum Status: Acute Qualifiers: Encounter type: subsequent encounter Zone of sacrum fracture: unspecified portion of sacrum Fracture healing: with nonunion Qualified Codes: S32.10XK - Unspecified fracture of sacrum, subsequent encounter for fracture with nonunion (2) Hyponatremia Status: Acute (3) Traumatic retroperitoneal hematoma Status: Acute Qualifiers: Encounter type: subsequent encounter Qualified Codes: S36.892D - Contusion of other intra-abdominal organs, subsequent encounter (4) Sacral fracture, closed Status: Acute (5) Right rib fracture Status: Acute Qualifiers: Encounter type: subsequent encounter Rib fracture type: multiple ribs Fracture type: closed Fracture healing: with routine healing Qualified Codes: S22.41XD - Multiple fractures of ribs, right side, subsequent encounter for fracture with routine healing (6) Rhabdomyolysis Status: Resolved Resolution Date/Time: 10/25/18 @ 06:25 (7) Fall Status: Acute Qualifiers: Encounter type: subsequent encounter Qualified Codes: W19.XXXD - Unspecified fall, subsequent encounter (8) Fisher catheter in place Status: Acute (9) Neurogenic bladder Status: Acute (10) HTN (hypertension) Status: Chronic Qualifiers: Hypertension type: essential hypertension Qualified Codes: I10 - Essential (primary) hypertension (11) Hypothyroidism Status: Chronic Qualifiers: Hypothyroidism type: acquired Qualified Codes: E03.9 - Hypothyroidism, unspecified (12) Anemia Status: Chronic Qualifiers: Anemia type: unspecified type Qualified Codes: D64.9 - Anemia, unspecified (13) Fecal incontinence Status: Acute Qualifiers: Fecal incontinence type: unspecified Qualified Codes: R15.9 - Full incontinence of feces (14) Chest pain Status: Chronic Qualifiers: Chest pain type: unspecified Qualified Codes: R07.9 - Chest pain, unspecified (15) Bipolar 1 disorder Status: Chronic (16) MGUS (monoclonal gammopathy of unknown significance) Status: Chronic (17) COPD (chronic obstructive pulmonary disease) Status: Chronic (18) DVT prophylaxis Status: Acute ARIELA ESPINOZA DO Nov 10, 2018 09:48
[2018-11-10] MEDS: TAMSULOSIN 0.4 MG (FLOMAX) CAP PO SCH (17:07)
[2018-11-10 17:31] VITALS: BP 133/78
[2018-11-10 20:16] VITALS: BP 143/80
[2018-11-10] MEDS: MONTELUKAST 10 MG (SINGULAIR) TAB PO SCH (20:17)
[2018-11-10] MEDS: ISOSORBIDE MONONITRATE 60 MG (IMDUR) TAB PO SCH (20:17)
[2018-11-10] MEDS: SENNA W/DOCUSATE (SENOKOT S) TABLET PO SCH (20:17)
[2018-11-10] MEDS: GABAPENTIN 400 MG (NEURONTIN) CAP PO SCH (20:17)
[2018-11-10] MEDS: ZOLPIDEM 5 MG (AMBIEN) TAB PO PRN (21:58)
[2018-11-11] MEDS: ACETAMINOPHEN 500 MG TAB (TYLENOL) PO PRN (04:22)
[2018-11-11 04:59] LABS: BASOPHILS # (AUTO) 0.1 10^3/uL (0.0-0.1); BASOPHILS % (AUTO) 1 % (0-10); EOSINOPHILS # (AUTO) 0.4 10^3/uL (0.0-0.3); EOSINOPHILS % (AUTO) 9 % (0-10); HEMATOCRIT 28 % (35-52); LYMPHOCYTES # (AUTO) 2.2 X 10^3 (1.0-4.0); LYMPHOCYTES % (AUTO) 49 % (12-44); MEAN CORPUSCULAR HEMOGLOBIN 33 PG (25-34); MEAN CORPUSCULAR HGB CONC 32 G/DL (32-36); MEAN CORPUSCULAR VOLUME 103 FL (80-99); MEAN PLATELET VOLUME 8.7 FL (7.4-10.4); MONOCYTES # (AUTO) 0.4 X 10^3 (0.0-1.0); MONOCYTES % (AUTO) 9 % (0-12); NEUTROPHILS # (AUTO) 1.4 X 10^3 (1.8-7.8); NEUTROPHILS % (AUTO) 32 % (42-75); PLATELET COUNT 289 10^3/uL (130-400); RED CELL DISTRIBUTION WIDTH 14.9 % (10.0-14.5); WHITE BLOOD COUNT 4.4 10^3/uL (4.3-11.0)
[2018-11-11 05:04] VITALS: BP 130/75
[2018-11-11 05:20] LABS: ALANINE AMINOTRANSFERASE 13 U/L (0-55); ALBUMIN 2.6 GM/DL (3.2-4.5); ALKALINE PHOSPHATASE 111 U/L (40-136); BILIRUBIN,TOTAL 0.2 MG/DL (0.1-1.0); BUN/CREATININE RATIO 20; CALCIUM 8.8 MG/DL (8.5-10.1); CARBON DIOXIDE 25 MMOL/L (21-32); CHLORIDE 103 MMOL/L (98-107); CREATININE SERUM 0.74 MG/DL (0.60-1.30); GFR ESTIMATED > 60; GLUCOSE 87 MG/DL (70-105); POTASSIUM 3.6 MMOL/L (3.6-5.0); SODIUM 137 MMOL/L (135-145); TOTAL PROTEIN 8.2 GM/DL (6.4-8.2)
[2018-11-11] MEDS: BETHANECHOL 25 MG (URECHOLINE) TAB PO SCH ×4 (06:04→21:14)
[2018-11-11] MEDS: PANTOPRAZOLE 40 MG (PROTONIX) TAB PO SCH (06:04)
[2018-11-11] MEDS: CALCIUM CARB + VIT D 600 MG (CALCARB + D) TAB PO SCH ×2 (06:04→17:06)
[2018-11-11] MEDS: LEVOTHYROXINE 50 MCG (LEVOTHROID) TAB PO SCH (06:04)
[2018-11-11] MEDS: VENLAFAXINE 50 MG (EFFEXOR) TABLET PO SCH ×2 (06:04→17:07)
--- NOTE | 2018-11-11 08:18 | Occupational Ther Daily Note ---
OT Current Status-Daily Note Subjective Pt alert laying in bed. Pt agrees to therapy. Pt is anxious today. Mental Status/Objective Patient Orientation: Person, Place, Time, Situation Therapy Code Descriptions/Definitions Functional [place] Measure: 0=Not Assessed/NA 4=Minimal Assistance 1=Total Assistance 5=Supervision or Setup 2=Maximal Assistance 6=Modified [place] 3=Moderate Assistance 7=Complete [place] Attachments: Blum Catheter ADL-Treatment Pt declined taking a shower today. Pt states she took a shower with nursing yesterday. Pt performed sponge bath sitting EOB. Therapy Code Descriptions/Definitions Functional [place] Measure: 0=Not Assessed/NA 4=Minimal Assistance 1=Total Assistance 5=Supervision or Setup 2=Maximal Assistance 6=Modified [place] 3=Moderate Assistance 7=Complete [place] Therapy Quality Codes: 6 Independent with activity with or without an assistive device 5 Patient requires set up or clean up by helper. Patient completes activity by themselves 4 Supervision or touching assist (CGA). [place] provide cues , steadying assist 3 The helper provides less than half the effort to complete the activity 2 The helper provides more than half the effort to complete the activity 1 Dependent. The helper does all the effort to complete an activity 7 Patient refused to complete or attempt activity 9 The patient did not perform the activity before the current illness or injury 88 Not attempted due to Medical conditions or safety concerns Grooming (FIM): 6 (Pt able to brush teeth and hair sitting in w/c at sink. ) Oral Hygiene (QC): 6 Bathing (FIM): 5 (Pt performed sponge bath sitting EOB. Pt able to wash, rinse, and dry self. Set up. ) Bathing Location: L Arm, R Arm, L Upper Leg, R Upper Leg, L Lower Leg (including foot), R Lower Leg (including foot), Chest, Abdomen, Buttocks, Perineal Area Shower/Bathe Self (QC): 5 Upper Body (FIM): 5 (Pt able to doff hospital gown sitting EOB. Pt able to don bra and shirt) Upper Body Dressing (QC): 5 Lower Body Dressing (FIM): 4 (Pt able to doff briefs laying in bed. Pt required assist to thread catheter through briefs and pants. Pt able to don briefs, pants, and socks laying in bed. ) Lower Body Dressing (QC): 5 On/Off Footwear (QC): 5 Transfers (B, C, W/C) (FIM): 5 (Pt required placement for sliding board. SBA while pt is using sliding board. ) Other Treatment Pt propelled self in w/c to therapy gym. 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 The right hand scores are 39,45,38, average for R hand 40.6, previous score was 33. The L hand scores are 44,39,37, average for L hand is 40, previous score was 34. Pt performed the pinch standardized test using tip pinch, lateral pinch, and 3 jaw andre. R tip pinch score is 11,11,11 average for R tip pinch is 11, previous score was 5. L tip pinch score is 11,11,15 average score for L tip pinch is 12, previous score was 4. Lateral tip pinch for R hand is 7,10,10, average score for R hand is 9, previous was 7. Lateral tip pinch for L hand is 12,10,10 average for L hand is 10, previous was 8. Three jaw andre for R hand is 10,12,13, average R hand score is 11.6, previous score was 9.6. Three jaw andre for L hand is 12,11,10, average score for L hand is 11, previous score is 9.6. Pt propelled self using w/c back to room. Pt transferred to bed using sliding board. Pt is laying in bed, call light and phone in reach. Pts needs met. OT Short Term Goals Short Term Goals Time Frame: Nov 07, 2018 Eating(FIM): 5 Grooming(FIM): 5 Bathing(FIM): 4 Upper Body Dressing(FIM): 4 Lower Body Dressing(FIM): 3 Toileting(FIM): 3 Transfers (B,C,W/C) (FIM): 3 (slide board bed<>w/c) Toilet/Commode Transfer(FIM): 3 Additional Short Term Goals: 1-Demonstrate ADL Tasks, 2-Verbalize Understanding , 3-ImproveStrength/Abilio 1=Demonstrate adherence to instructed precautions during ADL tasks. 2=Patient will verbalize/demonstrate understanding of assistive devices/modifications for ADL. 3=Patient will improve strength/tolerance for activity to enable patient to perform ADL's. OT Usp Goals Usp Goals Time Frame: Nov 21, 2018 Eating (FIM): 6 Eating (QC): 6 Groomin Oral Hygiene (QC): 5 Bathing(FIM): 4 Shower/Bathe Self (QC): 4 Upper Body Dressing(FIM): 5 Upper Body Dressing (QC): 5 Lower Body Dressing(FIM): 5 Lower Body Dressing (QC): 5 On/Off Footwear (QC): 5 Toileting(FIM): 5 Toileting Hygiene (QC): 5 Transfers (B,C,W/C) (FIM): 5 Toilet/Commode Transfer(FIM): 5 Toilet/Commode Transfer (QC): 5 Shower Transfer(FIM): 3 Additional Goals: 1-Demonstrate ADL Tasks, 2-Verbalize Understanding, 3- ImproveStrength/Abilio 1=Demonstrate adherence to instructed precautions during ADL tasks. 2=Patient will verbalize/demonstrate understanding of assistive devices/modifications for ADL. 3=Patient will improve strength/tolerance for activity to enable patient to perform ADL's. OT Education/Plan Problem List/Assessment Assessment: Decreased UE Strength Discharge Recommendations Plan/Recommendations: Continue POC Treatment Plan/Plan of Care Patient would benefit from OT for education, treatment and training to promote independence in ADL's, mobility, safety and/or upper extremity function for ADL's. Plan of Care: ADL Retraining, Functional Mobility, Group Exercise/Act as Ind, UE Funct Exercise/Act Treatment Duration: Nov 21, 2018 Frequency: At least 5 of 7 days/Wk (IRF) Estimated Hrs Per Day: 1.5 hours per day Agreement: Yes Rehab Potential: Fair Time/GCodes Start Time: 06:55 Stop Time: 08:10 Total Time Billed (hr/min): 75 Billed Treatment Time 1 visit- ADL 3 (45 min) EX 2 (30 min) NATE PROCTOR Nov 11, 2018 08:18
--- NOTE | 2018-11-11 09:03 | PM&R Progress Note ---
Subjective HPI/CC On Admission Date Seen by Provider: Nov 11, 2018 Time Seen by Provider: 08:30 CC: Debility following sacral fracture and subsequent partial paraplegia Pt is a 67 y/o WF w/ hx of Bipolar d/o, expressive aphasia, HTN, and asthma, who is here from [facility] in [place], [place] after recent fall 2/2 vertigo and unsteady gait at her home which resulted in nondisplaced fracture of the left inferior and superior pubic ramus, a sacral fracture with mild displacement of 1 cm, a mild T12 compression fracture, and posterior fracture of right 9th rib. Pt was admitted to ICU at the time and ortho surg was consulted. Pt was stabilized and sent to [facility] at a tertiary higher level care [facility]. Sacroiliac joints were bridged w/ 2 surgical screws. Rates LLE pain 10/10 at this time. Also c/o muscle spasms in RLE. says Flexeril is not helping. Pt currently has a fisher in place, recent CT showed distended bladder, no hematuria. currently No focal deficits. Pt has chronic constipation and is intermittently incontinent of bowels. Had regular bladder function prior to fall. Reports hx of recent falls as well. Prior to this encounter, pt lived alone at home and ambulated using a walker. Pt has a daughter who lives 23 miles away from her and is able to visit her MWF. 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 Pt was discharged from [facility] with the following meds: PERCOCET 5-325MG 1 TAB Q6H PRN CALCIUM +D 500-200 BID DOCUSATE-SENNA 50-8.6MG 2 TABS HS LOVENOX 30MG SUBQ Q12 HOURS X 14 DAYS Pt has seen: PCP Dr. Kaitlynn Martinez Urologist Dr. Harrell (has f/u on 10/29/18) Ortho Dr. Mccullough (has f/u on 10/29/18) Per Brandie Moreno [facility] Chief complaint: Debility following sacral fracture. HPI: This is a 67yoWF clinic Pt of [facility] that I briefly saw two weeks ago when she was admitted over the weekend after suffering a fall and sustaining a sacral fracture. It became unstable so orthopedic surgery recommended transfer to higher level of care to [facility] and I supported that move. She did undergo surgery to repair that by trauma surgery orthopedics and a screw was placed for stability. She is still having significant neurological deficit since that was completed, remains incontinent of stool and neurogenic bladder retention requiring fisher catheter administration. We will work on transfers to a wheelchair. We encourage her to be up in a chair. Next week appointment scheduled with urology and trauma surgery and it will be assessed at that point regarding additional recommendations. Percocet is barely used now, will rely mostly on Tylenol and did not receive any transfusion, Hgb of 8.7 and is not on any antibiotics. Prior level of functioning was independent without the use of assistive devices so will work towards wheelchair mobility since likely the neurological deficit could be permanent. Subjective/Events-last exam [facility] is being pursued in [place] Feels pretty good otherwise She assures me she will be walking in 4 weeks and tells me this every day Unsure the unrealistic expectations status Unsure of recovery potential. Labs reviewed Nasal congestion will be managed with saline washes Checked meds and labs Conferred with care manager therapy notes Review of Systems General: Fatigue Objective Exam Vital Signs Vital Signs Date Time Temp Pulse Resp B/P (MAP) Pulse Ox O2 Delivery O2 Flow Rate FiO2 11/11/18 05:04 36.2 72 16 130/75 (93) 95 Room Air Capillary Refill : Less Than 3 Seconds General Appearance: No Apparent Distress, WD/WN, Anxious, Chronically ill HEENT: PERRL/EOMI, Normal ENT Inspection, Pharynx Normal Neck: Full Range of Motion, Normal Inspection, Non Tender, Supple Respiratory: Chest Non Tender, Lungs Clear, Normal Breath Sounds, No Accessory Muscle Use, No Respiratory Distress Cardiovascular: Regular Rate, Rhythm, No Edema, No Gallop, No JVD, No Murmur, Normal Peripheral Pulses Gastrointestinal: Normal Bowel Sounds, No Organomegaly, No Pulsatile Mass, Soft Extremity: Normal Capillary Refill, Normal Inspection, Non Tender, No Calf Tenderness, No Pedal Edema, Other (strength right lower leg 1/5, left 1/5) Neurologic/Psychiatric: Alert, Oriented x3, Normal Mood/Affect, 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 FIM Transfers Therapy Code Descriptions/Definitions Functional [place] Measure: 0=Not Assessed/NA 4=Minimal Assistance 1=Total Assistance 5=Supervision or Setup 2=Maximal Assistance 6=Modified [place] 3=Moderate Assistance 7=Complete [place] Therapy Quality Codes: 6 Independent with activity with or without an assistive device 5 Patient requires set up or clean up by helper. Patient completes activity by themselves 4 Supervision or touching assist (CGA). [place] provide cues , steadying assist 3 The helper provides less than half the effort to complete the activity 2 The helper provides more than half the effort to complete the activity 1 Dependent. The helper does all the effort to complete an activity 7 Patient refused to complete or attempt activity 9 The patient did not perform the activity before the current illness or injury 88 Not attempted due to Medical conditions or safety concerns Transfers (B, C, W/C) (FIM): 4 Scootin Rollin Roll Left to Right (QC): 1 Supine to/from Sit: 4 Sit to/from Stand: 0 (NWB bilateral LE) Sit to Lying (QC): 4 Sit to Stand (QC): 88 Chair/[id number]-hf-Ywjfc Xfer(QC): 5 Bed to/from Chair: 5 Car Transfer (QC): 88 Gait Training Does the Patient Walk?: No and Walking Goal NOT indicated Wheelchair Training Does the Pt Use a Wheelchair?: Yes Wheelchair (FIM): 5 Wheelchair Distance: 3=150 ft Distance: 150' Wheelchair Level of Assist: 5 Wheel 50 ft with 2 turns (QC): 5 Wheel 150 ft (QC): 5 Type of Wheelchair: Manual Stair Training Stairs (FIM): 0 1 Step (curb) (QC): 88 4 Steps (QC): 88 12 Steps (QC): 88 Balance Picking up an Object (QC): 4 Mental Status/Objective Comprehension: 5 Expression: 4 Social Interaction: 6 Problem Solvin Memory: 3 ADL-Treatment Feedin (Pt able to complete own set up and use regular utensils to eat.) Eating (QC): 6 Groomin Oral Hygiene (QC): 6 Bathin Bathing Location: L Arm, R Arm, L Upper Leg, R Upper Leg, L Lower Leg (including foot), R Lower Leg (including foot), Chest, Abdomen, Buttocks, P erineal Area Shower/Bathe Self (QC): 5 Upper Extremity Dressin Upper Body Dressing (QC): 5 Lower Extremity Dressin (Pt required assist to thread catheter through brief and and pants. Pt able to don/doff briefs and pants sitting EOB. Pt need step by step instructions on how to don pants. Pt able to don socks sitting EOB. Pt inconsistent with skills due to anxiety.) Lower Body Dressing (QC): 3 On/Off Footwear (QC): 5 Toiletin Toileting Hygiene (QC): 1 Toilet/Commode Transfer: 1 (Using shower chair with cutout, pt uses sliding board transfer with assist x2.) Toilet Transfer (QC): 1 Shower: 2 (Pt using rolling shower chair with cutout to transport into the shower.) Assessment/Plan Assessment and Plan Assess & Plan/Chief Complaint Assessment: Debility following sacral fracture and spinal cord injury with flaccidity or spasticity of the lower extremities Bipolar Anxiety Urinary retention due to neurogenic bladder Fisher cath likely will need in/out caths versus SP catheter Fecal incontinence Anemia Chest pain chronic Muscle spasms Nasal congestion Plan: Monitor pain Monitor bowel and bladder Baclofen for muscle spasms and increase the dose IRF protocol Urology appreciated Try to wean off pain medication Low dose of hydroxyzine for anxiety she has a benzodiazepine dependency history Trauma surgery appt 4 weeks Decrease pain meds NH at DC Nasal washes (1) Closed fracture of sacrum Status: Acute Qualifiers: Encounter type: subsequent encounter Zone of sacrum fracture: unspecified portion of sacrum Fracture healing: with nonunion Qualified Codes: S32.10XK - Unspecified fracture of sacrum, subsequent encounter for fracture with nonunion (2) Hyponatremia Status: Acute (3) Traumatic retroperitoneal hematoma Status: Acute Qualifiers: Encounter type: subsequent encounter Qualified Codes: S36.892D - Contusion of other intra-abdominal organs, subsequent encounter (4) Sacral fracture, closed Status: Acute (5) Right rib fracture Status: Acute Qualifiers: Encounter type: subsequent encounter Rib fracture type: multiple ribs Fracture type: closed Fracture healing: with routine healing Qualified Codes: S22.41XD - Multiple fractures of ribs, right side, subsequent encounter for fracture with routine healing (6) Rhabdomyolysis Status: Resolved Resolution Date/Time: 10/25/18 @ 06:25 (7) Fall Status: Acute Qualifiers: Encounter type: subsequent encounter Qualified Codes: W19.XXXD - Unspecified fall, subsequent encounter (8) Fisher catheter in place Status: Acute (9) Neurogenic bladder Status: Acute (10) HTN (hypertension) Status: Chronic Qualifiers: Hypertension type: essential hypertension Qualified Codes: I10 - Essential (primary) hypertension (11) Hypothyroidism Status: Chronic Qualifiers: Hypothyroidism type: acquired Qualified Codes: E03.9 - Hypothyroidism, unspecified (12) Anemia Status: Chronic Qualifiers: Anemia type: unspecified type Qualified Codes: D64.9 - Anemia, unspecified (13) Fecal incontinence Status: Acute Qualifiers: Fecal incontinence type: unspecified Qualified Codes: R15.9 - Full incontinence of feces (14) Chest pain Status: Chronic Qualifiers: Chest pain type: unspecified Qualified Codes: R07.9 - Chest pain, unspeci fied (15) Bipolar 1 disorder Status: Chronic (16) MGUS (monoclonal gammopathy of unknown significance) Status: Chronic (17) COPD (chronic obstructive pulmonary disease) Status: Chronic (18) DVT prophylaxis Status: Acute ARIELA ESPINOZA DO Nov 11, 2018 09:03
[2018-11-11] MEDS: OLANZapine 5 MG (ZyPREXA) TAB PO SCH (09:04)
[2018-11-11] MEDS: IBUPROFEN 800 MG (MOTRIN) TAB PO SCH ×3 (09:05→21:14)
[2018-11-11] MEDS: ESTROGENS CONJUGATED 0.45 MG (PREMARIN) TAB PO SCH (09:06)
[2018-11-11] MEDS: LORATADINE (CLARITIN) 10 MG TAB PO SCH (09:06)
[2018-11-11] MEDS: busPIRone 10 MG (BUSPAR) TAB PO SCH ×3 (09:06→21:14)
--- NOTE | 2018-11-11 09:06 | Physical Therapy Daily Note ---
PT Daily Note-Current Subjective Pt. leslee, agrees to Rx, states she has learned so much here and is so grateful. States she expects to be cleared to wt bear by end of Nov. No c/o pain. Pain Location: No Pain Reported Mental Status Patient Orientation: Person, Place, Time, Situation Attachments: Blum Catheter Transfers Therapy Code Descriptions/Definitions Functional [place] Measure: 0=Not Assessed/NA 4=Minimal Assistance 1=Total Assistance 5=Supervision or Setup 2=Maximal Assistance 6=Modified [place] 3=Moderate Assistance 7=Complete [place] Therapy Quality Codes: 6 Independent with activity with or without an assistive device 5 Patient requires set up or clean up by helper. Patient completes activity by themselves 4 Supervision or touching assist (CGA). [place] provide cues , steadying assist 3 The helper provides less than half the effort to complete the activity 2 The helper provides more than half the effort to complete the activity 1 Dependent. The helper does all the effort to complete an activity 7 Patient refused to complete or attempt activity 9 The patient did not perform the activity before the current illness or injury 88 Not attempted due to Medical conditions or safety concerns Transfers (B, C, W/C) (FIM): 4 Scootin Rollin Supine to/from Sit: 6 Bed to/from Chair: 4 slide brd TRFs require placement of board 50% of time as pt. gets brd caught on her pants or pad under her Weight Bearing Right Lower Extremity: Right Non Weight Bearing Left Lower Extremity: Left Non Weight Bearing Wheelchair Training Does the Pt Use a Wheelchair?: Yes Wheelchair (FIM): 5 Wheelchair Distance: 3=150 ft (250x2) Wheelchair Level of Assist: 5 Type of Wheelchair: Manual maunuevered thru fig 8s and backward thru narrow area as well as "parallel parking " next to bed etc for safe sld brd TRFs all with some verbal instruction Exercises Supine Ex: Bridging, Ankle pumps, Quad Set, Rolling, Glut sets, Heel Slides, Short Arc Quads, Scooting, Straight leg raise, Hip abd/add Supine Reps: 25 Seated Therapy Exercises: Ankle pumps, Long arc quads, Hip flexion Seated Reps: 15 Assessment Current Status: Good Progress PT Short Term Goals Short Term Goals Time Frame: Nov 09, 2018 Transfers (B,C,W/C) (FIM): 3 (slide board bed<>w/c) Wheelchair Distance: 150' PT Painter Supervisor Goals Usp Goals PT Usp Goals Time Frame: Nov 23, 2018 Transfers (B,C,W/C) (FIM): 4 Sit to Lying (QC): 5 Lying-Sitting on Side/Bed(QC): 5 Sit to Stand (QC): 88 Rollin Roll Left to Right (QC): 5 Chair/Ypg-fg-Pojtp Xfer(QC): 4 Car Transfer (QC): 4 Does the Patient Walk: No and Walking Goal NOT indicated Does the Pt use WC or Scooter?: Yes Wheelchair (FIM): 2 Wheelchair distance (FIM): 2=270-64 ft Distance: 100' Wheelchair Level of Assist: 4 Wheel 50 feet with 2 turns (QC: 5 Stairs (FIM): 0 1 Step (curb) (QC): 88 4 Steps (QC): 88 12 Steps (QC): 88 Picking up an Object (QC): 5 PT Plan Treatment/Plan Treatment Plan: Continue Plan of Care Treatment Plan: Bed Mobility, Concurrent Therapy, Education, Functional Activity Abilio, Functional Strength, Group Therapy, Safety, Therapeutic Exercis e, Transfers Treatment Duration: Nov 23, 2018 Frequency: At least 5 of 7 days/Wk (IRF) Estimated Hrs Per Day: 1.5 hours per day Patient and/or Family Agrees t: Yes Safety Risks/Education Patient Education: Transfer Techniques, Correct Positioning, W/C Management, Disease Process, Safety Issues Teaching Recipient: Patient Teaching Methods: Demonstration, Discussion Response to Teaching: Verbalize Understanding, Return Demonstration, Reinforcement Needed Time/GCodes Time In: 815 Time Out: 900 Total Billed Treatment Time: 45 Total Billed Treatment 1,WCH15m,EX15m,FA15m CASSIUS ZIMMERMAN CHIEF LEGAL OFFICER Nov 11, 2018 09:06
[2018-11-11] MEDS: ENOXAPARIN 30 MG/0.3 ML (LOVENOX) SYR SC SCH ×2 (09:07→21:18)
[2018-11-11] MEDS: IPRATROPIUM 0.03% NS SCH ×3 (09:07→21:11)
[2018-11-11] MEDS: FLUTICASONE NASAL SPRAY (FLONASE) 16 GM BTL NS SCH ×2 (09:07→21:12)
[2018-11-11] MEDS: POLYETHYLENE GLYCOL 17 GM (MIRALAX) PACK PO SCH ×2 (09:08→21:20)
--- NOTE | 2018-11-11 10:02 | Speech Therapy Daily Note ---
Speech Daily Progress Note Subjective Date Seen by Provider: Nov 11, 2018 Time Seen by Provider: 00:30 Patient was resting in bed after her other therapies when I entered her room. Objective Patient completed memory activities related to her needs when she returns home with 90% given minimal cues. Assessment Assessment Current Status: Good Progress Treatment Plan Continue Plan of Care Communication Comprehension: 5 Expression: 4 Social Cognition Social Interaction: 6 Problem Solvin Memory: 3 Speech Short Term Goals Short Term Goals Short Term Goals 1) The patient will complete memory tasks with 80% or greater with minimal cues. 2) The patient will complete problem solving tasks with 80% or greater with minimal cues. 3) The patient will complete safety awareness tasks with 80% or greater with minimal cues. Speech Load Out Supervisor Goals Load Out Supervisor Goals The patient will improve cognitive skills in order to return home safely. Speech-Plan Patient/Family Goals Patient/Family Goals: Patient is going to return home with support services upon discharge from rehab. Treatment Plan Speech Therapy Treatment Plan: Continue Plan of Care Patient is progressing well with skilled therapies. Treatment Duration: Nov 15, 2018 Frequency: 5 times per week Estimated Hrs Per Day: .5 hour per day Rehab Potential: Fair Barriers to Learning: Patient has cognitive deficits, however she is progressing on the goals Pt/Family Agrees to Plan: Yes Safety Risks/Education Teaching Recipient: Patient Teaching Methods: Demonstration, Discussion Response to Teaching: Verbalize Understanding, Return Demonstration Education Topics Provided: Continued safety upon her return home. Time Speech Therapy Time In: 09:00 Speech Therapy Time Out: 09:30 Total Billed Time: 30 Billed Treatment Time 1, BILL Pryor Nov 11, 2018 10:02
[2018-11-11] MEDS: SALINE NASAL SPRAY (OCEAN) 45 ML BTL SCH ×3 (12:00→21:12)
--- NOTE | 2018-11-11 13:36 | Physical Therapy Daily Note ---
PT Daily Note-Current Subjective Pt. agrees to Rx. Smiles and states she enjoyed the outing and feels she is getting better Pain Location: No Pain Reported Mental Status Patient Orientation: Person, Place, Time, Situation Attachments: Blum Catheter Transfers Therapy Code Descriptions/Definitions Functional [place] Measure: 0=Not Assessed/NA 4=Minimal Assistance 1=Total Assistance 5=Supervision or Setup 2=Maximal Assistance 6=Modified [place] 3=Moderate Assistance 7=Complete [place] Therapy Quality Codes: 6 Independent with activity with or without an assistive device 5 Patient requires set up or clean up by helper. Patient completes activity by themselves 4 Supervision or touching assist (CGA). [place] provide cues , steadying assist 3 The helper provides less than half the effort to complete the activity 2 The helper provides more than half the effort to complete the activity 1 Dependent. The helper does all the effort to complete an activity 7 Patient refused to complete or attempt activity 9 The patient did not perform the activity before the current illness or injury 88 Not attempted due to Medical conditions or safety concerns Transfers (B, C, W/C) (FIM): 4 Scootin Rollin Supine to/from Sit: 6 Bed to/from Chair: 5 Weight Bearing Right Lower Extremity: Right Non Weight Bearing Left Lower Extremity: Left Non Weight Bearing Wheelchair Training Does the Pt Use a Wheelchair?: Yes Wheelchair (FIM): 6 Wheelchair Distance: 3=150 ft (250x2) Wheelchair Level of Assist: 6 Type of Wheelchair: Manual up down grade 50ft x 2, some fatigue but proud that she completed it Exercises Supine Ex: Quad Set, Rolling, Glut sets, Heel Slides, Hip abd/add Supine Reps: 10 Assessment Current Status: Good Progress PT Short Term Goals Short Term Goals Time Frame: Nov 09, 2018 Transfers (B,C,W/C) (FIM): 3 (slide board bed<>w/c) Wheelchair Distance: 150' PT Jail Goals Jail Goals PT Chairman Goals Time Frame: Nov 23, 2018 Transfers (B,C,W/C) (FIM): 4 Sit to Lying (QC): 5 Lying-Sitting on Side/Bed(QC): 5 Sit to Stand (QC): 88 Rollin Roll Left to Right (QC): 5 Chair/Mhc-ve-Qczsv Xfer(QC): 4 Car Transfer (QC): 4 Does the Patient Walk: No and Walking Goal NOT indicated Does the Pt use WC or Scooter?: Yes Wheelchair (FIM): 2 Wheelchair distance (FIM): 1=438-33 ft Distance: 100' Wheelchair Level of Assist: 4 Wheel 50 feet with 2 turns (QC: 5 Stairs (FIM): 0 1 Step (curb) (QC): 88 4 Steps (QC): 88 12 Steps (QC): 88 Picking up an Object (QC): 5 PT Plan Treatment/Plan Treatment Plan: Continue Plan of Care Treatment Plan: Bed Mobility, Concurrent Therapy, Education, Functional Activity Abilio, Functional Strength, Group Therapy, Safety, Therapeutic Exercise, Transfers Treatment Duration: Nov 23, 2018 Frequency: At least 5 of 7 days/Wk (IRF) Estimated Hrs Per Day: 1.5 hours per day Patient and/or Family Agrees t: Yes Safety Risks/Education Patient Education: Transfer Techniques, Correct Positioning, W/C Management, Safety Issues Teaching Recipient: Patient Teaching Methods: Demonstration, Discussion Response to Teaching: Verbalize Understanding, Return Demonstration, Reinforcement Needed Time/GCodes Time In: 1300 Time Out: 1330 Total Billed Treatment Time: 30 Total Billed Treatment 1,[facility] 20,FA10 CASSIUS ZIMMERMAN COSTUMER Nov 11, 2018 13:36
--- NOTE | 2018-11-11 13:53 | NUR ---
Patient questioning when her next appointment is with Dr. Mccullough. Patient then follows up with saying her next appointment is to be scheduled at dismissal. Will follow-up with [facility]. Kenneth states they are in network with [facility]; referral made. Patient scheduled for discharge, , November 14. Will continue to follow for discharge planning.
[2018-11-11 16:48] VITALS: BP 138/77
[2018-11-11] MEDS: TAMSULOSIN 0.4 MG (FLOMAX) CAP PO SCH (17:07)
--- NOTE | 2018-11-11 19:14 | NUR ---
bedside report received from CARLIN DAMON, assume care of pt
[2018-11-11] MEDS: RT-ADVAIR HFA 45/21 MCG PER PUFF IH SCH (20:33)
[2018-11-11 21:10] VITALS: BP 137/81
[2018-11-11] MEDS: MONTELUKAST 10 MG (SINGULAIR) TAB PO SCH (21:14)
[2018-11-11] MEDS: GABAPENTIN 400 MG (NEURONTIN) CAP PO SCH (21:14)
--- NOTE | 2018-11-11 21:14 | NUR ---
pt refused miralax but did take 1 Senokot, c/o pain level 10/10 on numeric scale, Ultram 50mg & scheduled Motrin 800mg given
[2018-11-11] MEDS: ISOSORBIDE MONONITRATE 60 MG (IMDUR) TAB PO SCH (21:15)
[2018-11-11] MEDS: SENNA W/DOCUSATE (SENOKOT S) TABLET PO SCH (21:15)
--- NOTE | 2018-11-11 21:45 | NUR ---
rates pain 7/10 on numeric scale
[2018-11-11] MEDS: oxyCODONE/APAP 5/325MG (PERCOCET 5) TABLET PO PRN (22:16)
[2018-11-11] MEDS: ZOLPIDEM 5 MG (AMBIEN) TAB PO PRN (22:16)
--- NOTE | 2018-11-11 22:16 | NUR ---
c/o pain level 9/10 & wants sleeping pill, Percocet 1 tab & Ambien 5mg given
--- NOTE | 2018-11-11 22:55 | NUR ---
resting quietly in bed, pain level 0/10 on flacc scale
[2018-11-12] MEDS: ACETAMINOPHEN 500 MG TAB (TYLENOL) PO PRN (03:21)
--- NOTE | 2018-11-12 03:21 | NUR ---
c/o headache, pain level 9/10 on numeric scale, Tylenol 500mg po given
--- NOTE | 2018-11-12 04:00 | NUR ---
rates pain 7/10 on numeric scale
[2018-11-12 05:31] VITALS: BP 136/76
[2018-11-12] MEDS: BETHANECHOL 25 MG (URECHOLINE) TAB PO SCH ×4 (06:32→22:05)
[2018-11-12] MEDS: PANTOPRAZOLE 40 MG (PROTONIX) TAB PO SCH (06:32)
[2018-11-12] MEDS: CALCIUM CARB + VIT D 600 MG (CALCARB + D) TAB PO SCH ×2 (06:32→16:30)
[2018-11-12] MEDS: LEVOTHYROXINE 50 MCG (LEVOTHROID) TAB PO SCH (06:32)
[2018-11-12] MEDS: VENLAFAXINE 50 MG (EFFEXOR) TABLET PO SCH ×2 (06:33→16:30)
[2018-11-12] MEDS: LINACLOTIDE 290 MCG (LINZESS) CAPSULE PO SCH (06:35)
--- NOTE | 2018-11-12 07:14 | Occupational Ther Daily Note ---
OT Current Status-Daily Note Subjective Pt alert sitting in bed. Pt agrees to therapy. Pt was eager to share her news about leaving on , pt is very excited. Mental Status/Objective Patient Orientation: Person, Place Therapy Code Descriptions/Definitions Functional [place] Measure: 0=Not Assessed/NA 4=Minimal Assistance 1=Total Assistance 5=Supervision or Setup 2=Maximal Assistance 6=Modified [place] 3=Moderate Assistance 7=Complete [place] Attachments: Blum Catheter ADL-Treatment Pt declined shower today. Pt performed sponge bath sitting EOB. Therapy Code Descriptions/Definitions Functional [place] Measure: 0=Not Assessed/NA 4=Minimal Assistance 1=Total Assistance 5=Supervision or Setup 2=Maximal Assistance 6=Modified [place] 3=Moderate Assistance 7=Complete [place] Therapy Quality Codes: 6 Independent with activity with or without an assistive device 5 Patient requires set up or clean up by helper. Patient completes activity by themselves 4 Supervision or touching assist (CGA). [place] provide cues , steadying assist 3 The helper provides less than half the effort to complete the activity 2 The helper provides more than half the effort to complete the activity 1 Dependent. The helper does all the effort to complete an activity 7 Patient refused to complete or attempt activity 9 The patient did not perform the activity before the current illness or injury 88 Not attempted due to Medical conditions or safety concerns Grooming (FIM): 6 (Pt propelled self using w/c to bathroom. Pt able to brush te eth and hair by self. ) Oral Hygiene (QC): 6 Bathing (FIM): 5 (Pt performed sponge bath sitting EOB. Pt able to wash, rinse, and dry by self. Pt leaned side to side to wash buttocks and LE. Set up. ) Bathing Location: L Arm, R Arm, L Upper Leg, R Upper Leg, L Lower Leg (including foot), R Lower Leg (including foot), Chest, Abdomen, Buttocks, Perineal Area Shower/Bathe Self (QC): 5 Upper Body (FIM): 5 (Pt able to doff hospital gown by self. ) Lower Body Dressing (FIM): 5 (Pt able to doff brief laying in bed. Pt able to thread catheter through briefs and pants by self. Pt educated on how to place catherter on bed rail after threading through brief so pt isnt bending over bed to warp picker catheter. Pt able to don briefs and pants by self sitting EOB. ) Lower Body Dressing (QC): 5 Transfers (B, C, W/C) (FIM): 4 (Pt required assist to place sliding board. SBA while pt is using sliding board. ) Other Treatment Pt propelled self using w/c to therapy gym. Pt participated in arm bike exercise duration 12 min at 22 watt resistance, previous session 20 watt resistance, to increase UE strength for functional activity tasks. Pt participated in 2x 10 reps sliding board placement exercise to increase independence for daily activity tasks. Pt c/o of tailbone hurting but doesn't rate it. Pt propelled self to room. Pt sitting in w/c, call light and phone in place, all needs met in room. OT Short Term Goals Short Term Goals Time Frame: Nov 07, 2018 Eating(FIM): 5 Grooming(FIM): 5 Bathing(FIM): 4 Upper Body Dressing(FIM): 4 Lower Body Dressing(FIM): 3 Toileting(FIM): 3 Transfers (B,C,W/C) (FIM): 3 (slide board bed<>w/c) Toilet/Commode Transfer(FIM): 3 Additional Short Term Goals: 1-Demonstrate ADL Tasks, 2-Verbalize Understand ing, 3-ImproveStrength/Abilio 1=Demonstrate adherence to instructed precautions during ADL tasks. 2=Patient will verbalize/demonstrate understanding of assistive devices/modifications for ADL. 3=Patient will improve strength/tolerance for activity to enable patient to perform ADL's. OT Prison Goals Prison Goals Time Frame: Nov 21, 2018 Eating (FIM): 6 Eating (QC): 6 Groomin Oral Hygiene (QC): 5 Bathing(FIM): 4 Shower/Bathe Self (QC): 4 Upper Body Dressing(FIM): 5 Upper Body Dressing (QC): 5 Lower Body Dressing(FIM): 5 Lower Body Dressing (QC): 5 On/Off Footwear (QC): 5 Toileting(FIM): 5 Toileting Hygiene (QC): 5 Transfers (B,C,W/C) (FIM): 5 Toilet/Commode Transfer(FIM): 5 Toilet/Commode Transfer (QC): 5 Shower Transfer(FIM): 3 Additional Goals: 1-Demonstrate ADL Tasks, 2-Verbalize Understanding, 3-ImproveStrength/Abilio 1=Demonstrate adherence to instructed precautions during ADL tasks. 2=Patient will verbalize/demonstrate understanding of assistive devices/modifications for ADL. 3=Patient will improve strength/tolerance for activity to enable patient to perform ADL's. OT Education/Plan Problem List/Assessment Assessment: Decreased UE Strength Discharge Recommendations Plan/Recommendations: Continue POC Treatment Plan/Plan of Care Patient would benefit from OT for education, treatment and training to promote independence in ADL's, mobility, safety and/or upper extremity function for ADL's. Plan of Care: ADL Retraining, Functional Mobility, Group Exercise/Act as Ind, UE Funct Exercise/Act Treatment Duration: Nov 21, 2018 Frequency: At least 5 of 7 days/Wk (IRF) Estimated Hrs Per Day: 1.5 hours per day Agreement: Yes Rehab Potential: Fair Time/GCodes Start Time: 07:00 Stop Time: 08:15 Total Time Billed (hr/min): 75 Billed Treatment Time 1 visit- ADL 3 (45 min) EX 2 (30 min) NATE PROCTOR Nov 12, 2018 07:14
--- NOTE | 2018-11-12 07:27 | NUR ---
bedside report given to CARLIN DAMON
[2018-11-12] MEDS: ESTROGENS CONJUGATED 0.45 MG (PREMARIN) TAB PO SCH (08:59)
[2018-11-12] MEDS: busPIRone 10 MG (BUSPAR) TAB PO SCH ×3 (08:59→21:58)
[2018-11-12] MEDS: IBUPROFEN 800 MG (MOTRIN) TAB PO SCH ×3 (09:00→21:58)
[2018-11-12] MEDS: LORATADINE (CLARITIN) 10 MG TAB PO SCH (09:00)
[2018-11-12] MEDS: ENOXAPARIN 30 MG/0.3 ML (LOVENOX) SYR SC SCH ×2 (09:00→21:59)
--- NOTE | 2018-11-12 09:03 | NUR ---
PT'S SCHEDULED ZYPREXA NOT SCANNING. CALL PLACED TO PHARMACY & NOTIFIED. THEY ARE GOING TO CHECK IN TO IT, & CALL BACK.
--- NOTE | 2018-11-12 09:04 | Physical Therapy Daily Note ---
PT Daily Note-Current Subjective Pt sitting in W/C after just finishing with OT. Pt agrees to PT and is excited at the possibility of D/C for (11/14). Pain Location Body Site: Sacrum Pain Description: Ache Comment: Pt does not rate but refers to "tailbone pain" during tx. Mental Status Patient Orientation: Person, Confused, Place Attachments: Blum Catheter Transfers Therapy Code Descriptions/Definitions Functional [place] Measure: 0=Not Assessed/NA 4=Minimal Assistance 1=Total Assistance 5=Supervision or Setup 2=Maximal Assistance 6=Modified [place] 3=Moderate Assistance 7=Complete [place] Therapy Quality Codes: 6 Independent with activity with or without an assistive device 5 Patient requires set up or clean up by helper. Patient completes activity by themselves 4 Supervision or touching assist (CGA). [place] provide cues , steadying assist 3 The helper provides less than half the effort to complete the activity 2 The helper provides more than half the effort to complete the activity 1 Dependent. The helper does all the effort to complete an activity 7 Patient refused to complete or attempt activity 9 The patient did not perform the activity before the current illness or injury 88 Not attempted due to Medical conditions or safety concerns Weight Bearing Right Lower Extremity: Right Non Weight Bearing Left Lower Extremity: Left Non Weight Bearing Gait Training Does the Patient Walk?: No and Walking Goal NOT indicated Wheelchair Training Does the Pt Use a Wheelchair?: Yes Wheelchair (FIM): 5 Wheelchair Distance: 3=150 ft Distance: 750' Wheelchair Level of Assist: 5 Wheel 50 ft with 2 turns (QC): 5 Wheel 150 ft (QC): 5 Type of Wheelchair: Manual Pt practices on W/C mobility on ramp as well as extended distances. Exercises Seated Therapy Exercises: Ankle pumps, Long arc quads, Hip flexion, Kicking activity, Hip abd/add, Glut set Seated Reps: 20 Treatments Pt practices W/C mobility with focus on ramps, turning and better control of W/C. Pt completes Seated EX in W/C. Pt resting at end of tx with all needs met, call light in hand. Assessment Current Status: Good Progress Pt demonstrates better control of W/C during tx today. Pt does need occasional assistance with slowing down when descending ramp. PT Short Term Goals Short Term Goals Time Frame: Nov 09, 2018 Transfers (B,C,W/C) (FIM): 3 (slide board bed<>w/c) Wheelchair Distance: 150' PT Senior Care Goals Senior Care Goals PT Senior Care Goals Time Frame: Nov 23, 2018 Transfers (B,C,W/C) (FIM): 4 Sit to Lying (QC): 5 Lying-Sitting on Side/Bed(QC): 5 Sit to Stand (QC): 88 Rollin Roll Left to Right (QC): 5 Chair/Yqi-nl-Akcvo Xfer(QC): 4 Car Transfer (QC): 4 Does the Patient Walk: No and Walking Goal NOT indicated Does the Pt use WC or Scooter?: Yes Wheelchair (FIM): 2 Wheelchair distance (FIM): 1=810-85 ft Distance: 100' Wheelchair Level of Assist: 4 Wheel 50 feet with 2 turns (QC: 5 Stairs (FIM): 0 1 Step (curb) (QC): 88 4 Steps (QC): 88 12 Steps (QC): 88 Picking up an Object (QC): 5 PT Plan Problem List Problem List: Activity Tolerance, Functional Strength Treatment/Plan Treatment Plan: Continue Plan of Care Treatment Plan: Bed Mobility, Concurrent Therapy, Education, Functional Activity Abilio, Functional Strength, Group Therapy, Safety, Therapeutic Exercise, Transfers Treatment Duration: Nov 23, 2018 Frequency: At least 5 of 7 days/Wk (IRF) Estimated Hrs Per Day: 1.5 hours per day Patient and/or Family Agrees t: Yes Safety Risks/Education Patient Education: Correct Positioning, W/C Management, Safety Issues Teaching Recipient: Patient Teaching Methods: Discussion Response to Teaching: Verbalize Understanding Time/GCodes Time In: 815 Time Out: 900 Total Billed Treatment 1, [facility] x2 (30m) & EX (15m) CHA FOOTE CARPET BINDER Nov 12, 2018 09:04
[2018-11-12] MEDS: RT-ADVAIR HFA 45/21 MCG PER PUFF IH SCH ×2 (09:05→20:22)
[2018-11-12] MEDS: FLUTICASONE NASAL SPRAY (FLONASE) 16 GM BTL NS SCH ×2 (09:50→22:03)
--- NOTE | 2018-11-12 09:50 | Speech Therapy Daily Note ---
Speech Daily Progress Note Subjective Date Seen by Provider: Nov 12, 2018 Time Seen by Provider: 00:30 Patient is excited to be going to [facility] prior to returning to her home. Objective Patient completed memory tasks related to her daily needs at 90% with minimal cuing. Assessment Assessment Current Status: Good Progress Treatment Plan Continue Plan of Care Communication Comprehension: 5 Expression: 4 Social Cognition Social Interaction: 6 Problem Solvin Memory: 3 Speech Short Term Goals Short Term Goals Short Term Goals 1) The patient will complete memory tasks with 80% or greater with minimal cues. 2) The patient will complete problem solving tasks with 80% or greater with minimal cues. 3) The patient will complete safety awareness tasks with 80% or greater with minimal cues. Speech Aluminum Hydroxide Process Operator Goals Aluminum Hydroxide Process Operator Goals The patient will improve cognitive skills in order to return home safely. Speech-Plan Patient/Family Goals Patient/Family Goals: Patient is scheduled to go to [facility] on . Treatment Plan Speech Therapy Treatment Plan: Continue Plan of Care Patient has made good progress with skilled therapy. Treatment Duration: Nov 15, 2018 Frequency: 5 times per week Estimated Hrs Per Day: .5 hour per day Rehab Potential: Fair Barriers to Learning: Patient has mild cognitive deficits, most have resolved Pt/Family Agrees to Plan: Yes Safety Risks/Education Teaching Recipient: Patient Teaching Methods: Demonstration, Discussion Response to Teaching: Verbalize Understanding, Return Demonstration Education Topics Provided: Continued safety even when she goes to a new environment. Time Speech Therapy Time In: 09:15 Speech Therapy Time Out: 09:45 Total Billed Time: 30 Billed Treatment Time [address] Nov 12, 2018 09:50
[2018-11-12] MEDS: SALINE NASAL SPRAY (OCEAN) 45 ML BTL SCH ×4 (09:51→22:05)
[2018-11-12] MEDS: IPRATROPIUM 0.03% NS SCH ×3 (09:51→22:04)
[2018-11-12] MEDS: OLANZapine 5 MG (ZyPREXA) TAB PO SCH (09:54)
[2018-11-12] MEDS: POLYETHYLENE GLYCOL 17 GM (MIRALAX) PACK PO SCH ×2 (09:56→21:59)
--- NOTE | 2018-11-12 10:15 | NUR ---
Pastoral care visit.
--- NOTE | 2018-11-12 10:24 | PM&R Progress Note ---
Subjective HPI/CC On Admission Date Seen by Provider: Nov 12, 2018 Time Seen by Provider: 09:00 CC: Debility following sacral fracture and subsequent partial paraplegia Pt is a 67 y/o WF w/ hx of Bipolar d/o, expressive aphasia, HTN, and asthma, who is here from [facility] in [place], [place] after recent fall 2/2 vertigo and unsteady gait at her home which resulted in nondisplaced fracture of the left inferior and superior pubic ramus, a sacral fracture with mild displacement of 1 cm, a mild T12 compression fracture, and posterior fracture of right 9th rib. Pt was admitted to ICU at the time and ortho surg was consulted. Pt was stabilized and sent to [facility] at a tertiary higher level care [facility]. Sacroiliac joints were bridged w/ 2 surgical screws. Rates LLE pain 10/10 at this time. Also c/o muscle spasms in RLE. says Flexeril is not helping. Pt currently has a fisher in place, recent CT showed distended bladder, no hematuria. currently No focal deficits. Pt has chronic constipation and is intermittently incontinent of bowels. Had regular bladder function prior to fall. Reports hx of recent falls as well. Prior to this encounter, pt lived alone at home and ambulated using a walker. Pt has a daughter who lives 23 miles away from her and is able to visit her MWF. 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 Pt was discharged from [facility] with the following meds: PERCOCET 5-325MG 1 TAB Q6H PRN CALCIUM +D 500-200 BID DOCUSATE-SENNA 50-8.6MG 2 TABS HS LOVENOX 30MG SUBQ Q12 HOURS X 14 DAYS Pt has seen: PCP Dr. Kaitlynn Martinez Urologist Dr. Harrell (has f/u on 10/29/18) Ortho Dr. Mccullough (has f/u on 10/29/18) Per Brandie Moreno [facility] Chief complaint: Debility following sacral fracture. HPI: This is a 67yoWF clinic Pt of [facility] that I briefly saw two weeks ago when she was admitted over the weekend after suffering a fall and sustaining a sacral fracture. It became unstable so orthopedic surgery recommended transfer to higher level of care to [facility] and I supported that move. She did undergo surgery to repair that by trauma surgery orthopedics and a screw was placed for stability. She is still having significant neurological deficit since that was completed, remains incontinent of stool and neurogenic bladder retention requiring fisher catheter administration. We will work on transfers to a wheelchair. We encourage her to be up in a chair. Next week appointment scheduled with urology and trauma surgery and it will be assessed at that point regarding additional recommendations. Percocet is barely used now, will rely mostly on Tylenol and did not receive any transfusion, Hgb of 8.7 and is not on any antibiotics. Prior level of functioning was independent without the use of assistive devices so will work towards wheelchair mobility since likely the neurological deficit could be permanent. Subjective/Events-last exam Pt doing well. Refusing her Linzess because she doesn't want explosive diarrhea. penitentiary placement in [place] on . Using slide board very well. Very much dramatically improved. Checked meds and labs Conferred with dry curer therapy notes Review of Systems General: Fatigue Neurological: Weakness, Numbness, Incoordination Objective Exam Vital Signs Vital Signs Date Time Temp Pulse Resp B/P (MAP) Pulse Ox O2 Delivery O2 Flow Rate FiO2 11/12/18 18:42 36.1 70 20 148/86 (106) 97 Room Air Capillary Refill : Less Than 3 Seconds General Appearance: No Apparent Distress, WD/WN, Anxious, Chronically ill HEENT: PERRL/EOMI, Normal ENT Inspection, Pharynx Normal Neck: Full Range of Motion, Normal Inspection, Non Tender, Supple Respiratory: Chest Non Tender, Lungs Clear, Normal Breath Sounds, No Accessory Muscle Use, No Respiratory Distress Cardiovascular: Regular Rate, Rhythm, No Edema, No Gallop, No JVD, No Murmur, Normal Peripheral Pulses Gastrointestinal: Normal Bowel Sounds, No Organomegaly, No Pulsatile Mass, Soft Extremity: Normal Capillary Refill, Normal Inspection, Non Tender, No Calf Tenderness, No Pedal Edema, Other (strength right lower leg 1/5, left 1/5) Neurologic/Psychiatric: Alert, Oriented x3, Normal Mood/Affect, tax manager cpa II-XII Norm as Tested, Motor Weakness (lower leg parpalegia) Skin: Normal Color, Warm/Dry Lymphatic: No Adenopathy Results/Procedures Lab Patient resulted labs reviewed. FIM Transfers Therapy Code Descriptions/Definitions Functional [place] Measure: 0=Not Assessed/NA 4=Minimal Assistance 1=Total Assistance 5=Supervision or Setup 2=Maximal Assistance 6=Modified [place] 3=Moderate Assistance 7=Complete [place] Therapy Quality Codes: 6 Independent with activity with or without an assistive device 5 Patient requires set up or clean up by helper. Patient completes activity by themselves 4 Supervision or touching assist (CGA). [place] provide cues , steadying assist 3 The helper provides less than half the effort to complete the activity 2 The helper provides more than half the effort to complete the activity 1 Dependent. The helper does all the effort to complete an activity 7 Patient refused to complete or attempt activity 9 The patient did not perform the activity before the current illness or injury 88 Not attempted due to Medical conditions or safety concerns Transfers (B, C, W/C) (FIM): 4 (Pt required assist to place sliding board. SBA while pt is using sliding board. ) Scootin Rollin Roll Left to Right (QC): 1 Supine to/from Sit: 6 Sit to/from Stand: 0 (NWB bilateral LE) Sit to Lying (QC): 4 Sit to Stand (QC): 88 Chair/Suz-qk-Ujkrt Xfer(QC): 5 Bed to/from Chair: 5 Car Transfer (QC): 88 Gait Training Does the Patient Walk?: No and Walking Goal NOT indicated Wheelchair Training Does the Pt Use a Wheelchair?: Yes Wheelchair (FIM): 6 Wheelchair Distance: 3=150 ft (250x2) Distance: 150' Wheelchair Level of Assist: 6 Wheel 50 ft with 2 turns (QC): 5 Wheel 150 ft (QC): 5 Type of Wheelchair: Manual Stair Training Stairs (FIM): 0 1 Step (curb) (QC): 88 4 Steps (QC): 88 12 Steps (QC): 88 Balance Picking up an Object (QC): 4 Mental Status/Objective Comprehension: 5 Expression: 4 Social Interaction: 6 Problem Solvin Memory: 3 ADL-Treatment Feedin (Pt able to complete own set up and use regular utensils to eat.) Eating (QC): 6 Groomin (Pt propelled self using w/c to bathroom. Pt able to brush teeth and hair by self. ) Oral Hygiene (QC): 6 Bathin (Pt performed sponge bath sitting EOB. Pt able to wash, rinse, and dry by self. Pt leaned side to side to wash buttocks and LE. Set up. ) Bathing Location: L Arm, R Arm, L Upper Leg, R Upper Leg, L Lower Leg (including foot), R Lower Leg (including foot), Chest, Abdomen, Buttocks, Perineal Area Shower/Bathe Self (QC): 5 Upper Extremity Dressin (Pt able to doff hospital gown by self. ) Upper Body Dressing (QC): 5 Lower Extremity Dressin (Pt able to doff brief laying in bed. Pt able to thread catheter through briefs and pants by self. Pt educated on how to place catherter on bed rail after threading through brief so pt isnt bending over bed to hot die picker catheter. Pt able to don briefs and pants by self sitting EOB. ) Lower Body Dressing (QC): 5 On/Off Footwear (QC): 5 Toiletin Toileting Hygiene (QC): 1 Toilet/Commode Transfer: 1 (Using shower chair with cutout, pt uses sliding board transfer with assist x2.) Toilet Transfer (QC): 1 Shower: 2 (Pt using rolling shower chair with cutout to transport into the shower.) Assessment/Plan Assessment and Plan Assess & Plan/Chief Complaint Assessment: Debility following sacral fracture and spinal cord injury with flaccidity or spasticity of the lower extremities Bipolar Anxiety Urinary retention due to neurogenic bladder Fisher cath likely will need in/out caths versus SP catheter Fecal incontinence Anemia Chest pain chronic Muscle spasms Nasal congestion Plan: Monitor pain Monitor bowel and bladder Baclofen for muscle spasms and increase the dose IRF protocol Urology appreciated Try to wean off pain medication Low dose of hydroxyzine for anxiety she has a benzodiazepine dependency history Trauma surgery appt 4 weeks Decrease pain meds NH at [facility] Nasal washes (1) Closed fracture of sacrum Status: Acute Qualifiers: Encounter type: subsequent encounter Zone of sacrum fracture: unspecified portion of sacrum Fracture healing: with nonunion Qualified Codes: S32.10XK - Unspecified fracture of sacrum, subsequent encounter for fracture with nonunion (2) Hyponatremia Status: Acute (3) Traumatic retroperitoneal hematoma Status: Acute Qualifiers: Encounter type: subsequent encounter Qualified Codes: S36.892D - Contusion of other intra-abdominal organs, subsequent encounter (4) Sacral fracture, closed Status: Acute (5) Right rib fracture Status: Acute Qualifiers: Encounter type: subsequent encounter Rib fracture type: multiple ribs Fracture type: closed Fracture healing: with routine healing Qualified Codes: S22.41XD - Multiple fractures of ribs, right side, subsequent encounter for fracture with routine healing (6) Rhabdomyolysis Status: Resolved Resolution Date/Time: 10/25/18 @ 06:25 (7) Fall Status: Acute Qualifiers: Encounter type: subsequent encounter Qualified Codes: W19.XXXD - Unspecified fall, subsequent encounter (8) Fisher catheter in place Status: Acute (9) Neurogenic bladder Status: Acute (10) HTN (hypertension) Status: Chronic Qualifiers: Hypertension type: essential hypertension Qualified Codes: I10 - Essential (primary) hypertension (11) Hypothyroidism Status: Chronic Qualifiers: Hypothyroidism type: acquired Qualified Codes: E03.9 - Hypothyroidism, unspecified (12) Anemia Status: Chronic Qualifiers: Anemia type: unspecified type Qualified Codes: D64.9 - Anemia, unspecified (13) Fecal incontinence Status: Acute Qualifiers: Fecal incontinence type: unspecified Qualified Codes: R15.9 - Full incontinence of feces (14) Chest pain Status: Chronic Qualifiers: Chest pain type: unspecified Qualified Codes: R07.9 - Chest pain, unspecified (15) Bipolar 1 disorder Status: Chronic (16) MGUS (monoclonal gammopathy of unknown significance) Status: Chronic (17) COPD (chronic obstructive pulmonary disease) Status: Chronic (18) DVT prophylaxis Status: Acute ARIELA ESPINOZA DO Nov 12, 2018 10:24
--- NOTE | 2018-11-12 10:28 | NUR ---
Received notification from [employer], that patient has been accepted for admission this . Patient agreeable to temporarily use [facility], for PCP care, while a resident at 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 Will continue to follow.
--- NOTE | 2018-11-12 12:06 | Physical Therapy Daily Note ---
PT Daily Note-Current Subjective Pt sitting in W/C upon arrival. Pt is asked if she would be okay to finish tx this morning instead of this afternoon. Pt agrees to PT and asked to propel W/C to garden to enjoy the outdoors for a little while. Pain Location Body Site: Sacrum Pain Description: Ache Comment: Pt again reports "tailbone pain" but does not rate. Mental Status Patient Orientation: Person, Confused, Place Attachments: Blum Catheter Transfers Therapy Code Descriptions/Definitions Functional [place] Measure: 0=Not Assessed/NA 4=Minimal Assistance 1=Total Assistance 5=Supervision or Setup 2=Maximal Assistance 6=Modified [place] 3=Moderate Assistance 7=Complete [place] Therapy Quality Codes: 6 Independent with activity with or without an assistive device 5 Patient requires set up or clean up by helper. Patient completes activity by themselves 4 Supervision or touching assist (CGA). [place] provide cues , steadying assist 3 The helper provides less than half the effort to complete the activity 2 The helper provides more than half the effort to complete the activity 1 Dependent. The helper does all the effort to complete an activity 7 Patient refused to complete or attempt activity 9 The patient did not perform the activity before the current illness or injury 88 Not attempted due to Medical conditions or safety concerns Scootin Supine to/from Sit: 6 Sit to Lying (QC): 6 Chair/Qwf-hn-Qcxtn Xfer(QC): 5 Bed to/from Chair: 5 Weight Bearing Right Lower Extremity: Right Non Weight Bearing Left Lower Extremity: Left Non Weight Bearing Gait Training Does the Patient Walk?: No and Walking Goal NOT indicated Wheelchair Training Does the Pt Use a Wheelchair?: Yes Wheelchair (FIM): 5 Wheelchair Distance: 3=150 ft Distance: 1000' Wheelchair Level of Assist: 5 Wheel 50 ft with 2 turns (QC): 5 Wheel 150 ft (QC): 5 Type of Wheelchair: Manual Treatments Pt propels W/C to main floor of hospital, throughout outdoor garden before returning to room to rest. Pt places slide board and transfers from W/C to EOB. Pt then lays Supine in bed with pillows under sacrum for support. Pt resting at end of tx with all needs met, call light in hand. Assessment Current Status: Good Progress Pt is improving with transfers and W/C mobility. PT Short Term Goals Short Term Goals Time Frame: Nov 09, 2018 Transfers (B,C,W/C) (FIM): 3 (slide board bed<>w/c) Wheelchair Distance: 750' PT Group Home Goals Tooth Cutter Spur Goals PT Tooth Cutter Spur Goals Time Frame: Nov 23, 2018 Transfers (B,C,W/C) (FIM): 4 Sit to Lying (QC): 5 Lying-Sitting on Side/Bed(QC): 5 Sit to Stand (QC): 88 Rollin Roll Left to Right (QC): 5 Chair/Clw-uy-Fyesl Xfer(QC): 4 Car Transfer (QC): 4 Does the Patient Walk: No and Walking Goal NOT indicated Does the Pt use WC or Scooter?: Yes Wheelchair (FIM): 2 Wheelchair distance (FIM): 1=123-79 ft Distance: 100' Wheelchair Level of Assist: 4 Wheel 50 feet with 2 turns (QC: 5 Stairs (FIM): 0 1 Step (curb) (QC): 88 4 Steps (QC): 88 12 Steps (QC): 88 Picking up an Object (QC): 5 PT Plan Problem List Problem List: Activity Tolerance Treatment/Plan Treatment Plan: Continue Plan of Care Treatment Plan: Bed Mobility, Concurrent Therapy, Education, Functional Activity Abilio, Functional Strength, Group Therapy, Safety, Therapeutic Exercise, Transfers Treatment Duration: Nov 23, 2018 Frequency: At least 5 of 7 days/Wk (IRF) Estimated Hrs Per Day: 1.5 hours per day Patient and/or Family Agrees t: Yes Safety Risks/Education Patient Education: Transfer Techniques, Correct Positioning, W/C Management, Safety Issues Teaching Recipient: Patient Teaching Methods: Discussion Response to Teaching: Verbalize Understanding Time/GCodes Time In: 1130 Time Out: 1200 Total Billed Treatment Time: 30 Total Billed Treatment 1, WC (20m) & FA (10m) CHA FOOTE DIRECTOR OF ANCILLARY SERVICES Nov 12, 2018 12:06
[2018-11-12] MEDS: TAMSULOSIN 0.4 MG (FLOMAX) CAP PO SCH (18:38)
[2018-11-12 18:42] VITALS: BP 148/86
[2018-11-12] MEDS: ZOLPIDEM 5 MG (AMBIEN) TAB PO PRN (21:55)
[2018-11-12] MEDS: SENNA W/DOCUSATE (SENOKOT S) TABLET PO SCH (21:56)
[2018-11-12] MEDS: GABAPENTIN 400 MG (NEURONTIN) CAP PO SCH (21:57)
[2018-11-12] MEDS: ISOSORBIDE MONONITRATE 60 MG (IMDUR) TAB PO SCH (21:57)
[2018-11-12] MEDS: MONTELUKAST 10 MG (SINGULAIR) TAB PO SCH (21:59)
[2018-11-13] MEDS: ACETAMINOPHEN 500 MG TAB (TYLENOL) PO PRN (03:31)
[2018-11-13 03:35] VITALS: BP 128/77
[2018-11-13 06:09] VITALS: BP 130/63
[2018-11-13] MEDS: LEVOTHYROXINE 50 MCG (LEVOTHROID) TAB PO SCH (06:10)
[2018-11-13] MEDS: PANTOPRAZOLE 40 MG (PROTONIX) TAB PO SCH (06:10)
[2018-11-13] MEDS: VENLAFAXINE 50 MG (EFFEXOR) TABLET PO SCH ×2 (06:11→16:37)
[2018-11-13] MEDS: BETHANECHOL 25 MG (URECHOLINE) TAB PO SCH ×4 (06:11→22:25)
[2018-11-13] MEDS: CALCIUM CARB + VIT D 600 MG (CALCARB + D) TAB PO SCH ×2 (06:11→16:37)
--- NOTE | 2018-11-13 07:38 | Occupational Ther Daily Note ---
OT Current Status-Daily Note Subjective Pt alert laying in bed. in room at OT arrival. Pt agrees to therapy. Pt is concerned she will not see therapy team before leaving tomorrow. Pt is anxious today. Mental Status/Objective Patient Orientation: Person, Place, Time, Situation Therapy Code Descriptions/Definitions Functional [place] Measure: 0=Not Assessed/NA 4=Minimal Assistance 1=Total Assistance 5=Supervision or Setup 2=Maximal Assistance 6=Modified [place] 3=Moderate Assistance 7=Complete [place] Attachments: Blum Catheter ADL-Treatment Pt is inconsistent with being able to thread catheter through briefs and pants. Therapy Code Descriptions/Definitions Functional [place] Measure: 0=Not Assessed/NA 4=Minimal Assistance 1=Total Assistance 5=Supervision or Setup 2=Maximal Assistance 6=Modified [place] 3=Moderate Assistance 7=Complete [place] Therapy Quality Codes: 6 Independent with activity with or without an assistive device 5 Patient requires set up or clean up by helper. Patient completes activity by themselves 4 Supervision or touching assist (CGA). [place] provide cues , steadying assist 3 The helper provides less than half the effort to complete the activity 2 The helper provides more than half the effort to complete the activity 1 Dependent. The helper does all the effort to complete an activity 7 Patient refused to complete or attempt activity 9 The patient did not perform the activity before the current illness or injury 88 Not attempted due to Medical conditions or safety concerns Eating (FIM): 7 (Pt has demonstrated ability to complete opening containers/packages by self and using utensils to eat.) Eating (QC): 6 Grooming (FIM): 6 (Pt able to brush hair and teeth sitting at sink by self. ) Oral Hygiene (QC): 6 Bathing (FIM): 6 (Pt requires hand held shower head, rolling shower chair with cutout and AE. Pt able to wash LE with AE. Pt able to wash, rinse, and dry by self. ) Bathing Location: L Arm, R Arm, L Upper Leg, R Upper Leg, L Lower Leg (including foot), R Lower Leg (including foot), Chest, Abdomen, Buttocks, Perineal Area Shower/Bathe Self (QC): 6 Upper Body (FIM): 5 (Sitting EOB, pt able to doff hospital gown by self. Pt able to don bra and shirt by self. Set up. ) Upper Body Dressing (QC): 5 Lower Body Dressing (FIM): 5 (Pt able to doff briefs laying in bed. Sitting EOB, pt able to thread catheter through briefs and pants with VC's. Pt able to don briefs and pants by self leaning side to side sitting EOB. Pt able to don socks by self. ) Lower Body Dressing (QC): 5 On/Off Footwear (QC): 5 Toileting (FIM): 2 (Pt has Blum catheter. Declines to use toilet, uses bed owens. Pt does not place bed owens or cleanse self after BM. Pt does demonstrate ability to complete clothing manipulation lying in bed.) Toileting Hygiene (QC): 2 Transfers (B, C, W/C) (FIM): 5 (Pt able to place sliding board by self. SBA while pt is using sliding board from bed <--> w/c. ) Toilet/Commode Transfer (FIM): 7 (Pt refuses to complete transfers, wants to use bedpan.) Toilet Transfer (QC): 7 Shower Transfer(FIM): 2 (Transfers to rolling shower chair using sliding board with SBA then assist to push shower chair into shower.) Other Treatment Pt propelled self using w/c to laundry room to perform IADL tasks by washing pts clothes. Pt propelled self back to room. Pt participated in 5 UE exercises 2x 10 reps increase UE strength for daily functional activity tasks. Pt sitting in w/c, call light and phone in reach, all needs met in room. OT Short Term Goals Short Term Goals Time Frame: Nov 07, 2018 Eating(FIM): 5 Grooming(FIM): 5 Bathing(FIM): 4 Upper Body Dressing(FIM): 4 Lower Body Dressing(FIM): 3 Toileting(FIM): 3 Transfers (B,C,W/C) (FIM): 3 (slide board bed<>w/c) Toilet/Commode Transfer(FIM): 3 Additional Short Term Goals: 1-Demonstrate ADL Tasks, 2-Verbalize Understandi ng, 3-ImproveStrength/Abilio 1=Demonstrate adherence to instructed precautions during ADL tasks. 2=Patient will verbalize/demonstrate understanding of assistive devices/modifications for ADL. 3=Patient will improve strength/tolerance for activity to enable patient to perform ADL's. OT [facility]ci Goals Whale Trainer Goals Time Frame: Nov 21, 2018 Eating (FIM): 6 (met-11/13/18) Eating (QC): 6 (met-11/13/18) Groomin (met-11/13/18) Oral Hygiene (QC): 5 (met-11/13/18) Bathing(FIM): 4 (met-11/13/18) Bathing Location: L Arm, R Arm, L Upper Leg, R Upper Leg, L Lower Leg (including foot), R Lower Leg (including foot), Chest, Abdomen, Buttocks, Perineal Area Shower/Bathe Self (QC): 4 (met-11/13/18) Upper Body Dressing(FIM): 5 (met-11/13/18) Upper Body Dressing (QC): 5 (met-11/13/18) Lower Body Dressing(FIM): 5 (met-11/13/18) Lower Body Dressing (QC): 5 (met-11/13/18) On/Off Footwear (QC): 5 (met-11/13/18) Toileting(FIM): 5 (met-11/13/18) Toileting Hygiene (QC): 5 (met-11/13/18) Transfers (B,C,W/C) (FIM): 5 (met-11/13/18) Toilet/Commode Transfer(FIM): 5 (not met) Toilet/Commode Transfer (QC): 5 (not met) Shower Transfer(FIM): 3 (not met) Additional Goals: 1-Demonstrate ADL Tasks, 2-Verbalize Understanding, 3- ImproveStrength/Abilio 1=Demonstrate adherence to instructed precautions during ADL tasks. 2=Patient will verbalize/demonstrate understanding of assistive devices/modifications for ADL. 3=Patient will improve strength/tolerance for activity to enable patient to perform ADL's. OT Education/Plan Problem List/Assessment Assessment: Decreased Activ Tolerance, Decreased UE Strength Discharge Recommendations Plan/Recommendations: Continue POC Treatment Plan/Plan of Care Patient would benefit from OT for education, treatment and training to promote independence in ADL's, mobility, safety and/or upper extremity function for ADL's. Plan of Care: ADL Retraining, Functional Mobility, Group Exercise/Act as Ind, UE Funct Exercise/Act Treatment Duration: Nov 21, 2018 Frequency: At least 5 of 7 days/Wk (IRF) Estimated Hrs Per Day: 1.5 hours per day Agreement: Yes Rehab Potential: Fair Time/GCodes Start Time: 07:00 Stop Time: 08:15 Total Time Billed (hr/min): 75 Billed Treatment Time 1 visit- ADL 3 (50 min) FA 1 (15min) EX 1 (10 min) NATE PROCTOR Nov 13, 2018 07:38
--- NOTE | 2018-11-13 08:38 | PM&R Progress Note ---
Subjective HPI/CC On Admission Date Seen by Provider: Nov 13, 2018 Time Seen by Provider: 07:00 CC: Debility following sacral fracture and subsequent partial paraplegia Pt is a 67 y/o WF w/ hx of Bipolar d/o, expressive aphasia, HTN, and asthma, who is here from [facility] in [place], [place] after recent fall 2/2 vertigo and unsteady gait at her home which resulted in nondisplaced fracture of the left inferior and superior pubic ramus, a sacral fracture with mild displacement of 1 cm, a mild T12 compression fracture, and posterior fracture of right 9th rib. Pt was admitted to ICU at the time and ortho surg was consulted. Pt was stabilized and sent to [place] at a tertiary higher level care [facility]. Sacroiliac joints were bridged w/ 2 surgical screws. Rates LLE pain 10/10 at this time. Also c/o muscle spasms in RLE. says Flexeril is not helping. Pt currently has a fisher in place, recent CT showed distended bladder, no hematuria. currently No focal deficits. Pt has chronic constipation and is intermittently incontinent of bowels. Had regular bladder function prior to fall. Reports hx of recent falls as well. Prior to this encounter, pt lived alone at home and ambulated using a walker. Pt has a daughter who lives 23 miles away from her and is able to visit her MWF. 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 Pt was discharged from [place] with the following meds: PERCOCET 5-325MG 1 TAB Q6H PRN CALCIUM +D 500-200 BID DOCUSATE-SENNA 50-8.6MG 2 TABS HS LOVENOX 30MG SUBQ Q12 HOURS X 14 DAYS Pt has seen: PCP Dr. Kaitlynn Martinez Urologist Dr. Harrell (has f/u on 10/29/18) Ortho Dr. Mccullough (has f/u on 10/29/18) Per Brandie Moreno [facility] Chief complaint: Debility following sacral fracture. HPI: This is a 67yoWF clinic Pt of [facility] that I briefly saw two weeks ago when she was admitted over the weekend after suffering a fall and sustaining a sacral fracture. It became unstable so orthopedic surgery recommended transfer to higher level of care to [place] and I supported that move. She did undergo surgery to repair that by trauma surgery orthopedics and a screw was placed for stability. She is still having significant neurological deficit since that was completed, remains incontinent of stool and neurogenic bladder retention requiring fisher catheter administration. We will work on transfers to a wheelchair. We encourage her to be up in a chair. Next week appointment scheduled with urology and trauma surgery and it will be assessed at that point regarding additional recommendations. Percocet is barely used now, will rely mostly on Tylenol and did not receive any transfusion, Hgb of 8.7 and is not on any antibiotics. Prior level of functioning was independent without the use of assistive devices so will work towards wheelchair mobility since likely the neurological deficit could be permanent. Subjective/Events-last exam Pt doing pretty well Disposition to the [facility] tomorrow Using side board very well Overall denies any significant increased pain Eating and drinking well Checked meds and labs Conferred with egg sorter therapy notes Review of Systems Neurological: Weakness, Incoordination Objective Exam Vital Signs Vital Signs Date Time Temp Pulse Resp B/P (MAP) Pulse Ox O2 Delivery O2 Flow Rate FiO2 11/13/18 19:19 94 Room Air 11/13/18 17:24 36.6 81 18 131/72 (91) Capillary Refill : Less Than 3 Seconds General Appearance: No Apparent Distress, WD/WN, Anxious, Chronically ill HEENT: PERRL/EOMI, Normal ENT Inspection, Pharynx Normal Neck: Full Range of Motion, Normal Inspection, Non Tender, Supple Respiratory: Chest Non Tender, Lungs Clear, Normal Breath Sounds, No Accessory Muscle Use, No Respiratory Distress Cardiovascular: Regular Rate, Rhythm, No Edema, No Gallop, No JVD, No Murmur, Normal Peripheral Pulses Gastrointestinal: Normal Bowel Sounds, No Organomegaly, No Pulsatile Mass, Soft Extremity: Normal Capillary Refill, Normal Inspection, Non Tender, No Calf Tenderness, No Pedal Edema, Other (strength right lower leg 1/5, left 1/5) Neurologic/Psychiatric: Alert, Oriented x3, Normal Mood/Affect, vacuum applicator operator II-XII Norm as Tested, Motor Weakness (lower leg parpalegia) Skin: Normal Color, Warm/Dry Lymphatic: No Adenopathy Results/Procedures Lab Patient resulted labs reviewed. FIM Transfers Therapy Code Descriptions/Definitions Functional [place] Measure: 0=Not Assessed/NA 4=Minimal Assistance 1=Total Assistance 5=Supervision or Setup 2=Maximal Assistance 6=Modified [place] 3=Moderate Assistance 7=Complete [place] Therapy Quality Codes: 6 Independent with activity with or without an assistive device 5 Patient requires set up or clean up by helper. Patient completes activity by themselves 4 Supervision or touching assist (CGA). [place] provide cues , steadying assist 3 The helper provides less than half the effort to complete the activity 2 The helper provides more than half the effort to complete the activity 1 Dependent. The helper does all the effort to complete an activity 7 Patient refused to complete or attempt activity 9 The patient did not perform the activity before the current illness or injury 88 Not attempted due to Medical conditions or safety concerns Transfers (B, C, W/C) (FIM): 5 (Pt able to place sliding board by self. SBA while pt is using sliding board from bed to w/c. ) Scootin Rollin Roll Left to Right (QC): 1 Supine to/from Sit: 6 Sit to/from Stand: 0 (NWB bilateral LE) Sit to Lying (QC): 6 Sit to Stand (QC): 88 Chair/Nus-qe-Ojpec Xfer(QC): 5 Bed to/from Chair: 5 Car Transfer (QC): 88 Gait Training Does the Patient Walk?: No and Walking Goal NOT indicated Wheelchair Training Does the Pt Use a Wheelchair?: Yes Wheelchair (FIM): 5 Wheelchair Distance: 3=150 ft Distance: 1000' Wheelchair Level of Assist: 5 Wheel 50 ft with 2 turns (QC): 5 Wheel 150 ft (QC): 5 Type of Wheelchair: Manual Stair Training Stairs (FIM): 0 1 Step (curb) (QC): 88 4 Steps (QC): 88 12 Steps (QC): 88 Balance Picking up an Object (QC): 4 Mental Status/Objective Comprehension: 5 Expression: 4 Social Interaction: 6 Problem Solvin Memory: 3 ADL-Treatment Feedin (Pt able to complete own set up and use regular utensils to eat.) Eating (QC): 6 Groomin (Pt able to brush hair and teeth sitting in rolling cutout chair at sink by self. ) Oral Hygiene (QC): 6 Bathin (Pt requires hand held shower head, cutout w/c, and AE. Pt able to wash LE with AE. Pt able to wash, rinse, and dry by self. ) Bathing Location: L Arm, R Arm, L Upper Leg, R Upper Leg, L Lower Leg (including foot), R Lower Leg (including foot), Chest, Abdomen, Buttocks, Perineal Area Shower/Bathe Self (QC): 6 Upper Extremity Dressin (Pt able to doff hospital gown by self. Pt able to don bra and shirt by self. Set up. ) Upper Body Dressing (QC): 5 Lower Extremity Dressin (Pt able to doff briefs laying in bed. Pt able to thread catheter through briefs and pants with VC's. Pt able to don briefds and pants by self leaning side to side sitting EOB. Pt able to don socks by self. ) Lower Body Dressing (QC): 5 On/Off Footwear (QC): 5 Toiletin Toileting Hygiene (QC): 1 Toilet/Commode Transfer: 1 (Using shower chair with cutout, pt uses sliding board transfer with assist x2.) Toilet Transfer (QC): 1 Shower: 2 (Pt using rolling shower chair with cutout to transport into the shower.) Assessment/Plan Assessment and Plan Assess & Plan/Chief Complaint Assessment: Debility following sacral fracture and spinal cord injury with flaccidity or spasticity of the lower extremities Bipolar Anxiety Urinary retention due to neurogenic bladder Fisher cath likely will need in/out caths versus SP catheter Fecal incontinence Anemia Chest pain chronic Muscle spasms Nasal congestion Plan: Monitor pain Monitor bowel and bladder Baclofen for muscle spasms and increase the dose IRF protocol Urology appreciated Try to wean off pain medication Low dose of hydroxyzine for anxiety she has a benzodiazepine dependency history Trauma surgery appt 4 weeks Decrease pain meds NH at DC Nasal washes (1) Closed fracture of sacrum Status: Acute Qualifiers: Encounter type: subsequent encounter Zone of sacrum fracture: unspecified portion of sacrum Fracture healing: with nonunion Qualified Codes: S32.10XK - Unspecified fracture of sacrum, subsequent encounter for fracture with nonunion (2) Hyponatremia Status: Acute (3) Traumatic retroperitoneal hematoma Status: Acute Qualifiers: Encounter type: subsequent encounter Qualified Codes: S36.892D - Contusion of other intra-abdominal organs, subsequent encounter (4) Sacral fracture, closed Status: Acute (5) Right rib fracture Status: Acute Qualifiers: Encounter type: subsequent encounter Rib fracture type: multiple ribs Fracture type: closed Fracture healing: with routine healing Qualified Codes: S22.41XD - Multiple fractures of ribs, right side, subsequent encounter for fracture with routine healing (6) Rhabdomyolysis Status: Resolved Resolution Date/Time: 10/25/18 @ 06:25 (7) Fall Status: Acute Qualifiers: Encounter type: subsequent encounter Qualified Codes: W19.XXXD - Unspecified fall, subsequent encounter (8) Fisher catheter in place Status: Acute (9) Neurogenic bladder Status: Acute (10) HTN (hypertension) Status: Chronic Qualifiers: Hypertension type: essential hypertension Qualified Codes: I10 - Essential (primary) hypertension (11) Hypothyroidism Status: Chronic Qualifiers: Hypothyroidism type: acquired Qualified Codes: E03.9 - Hypothyroidism, unspecified (12) Anemia Status: Chronic Qualifiers: Anemia type: unspecified type Qualified Codes: D64.9 - Anemia, unspecified (13) Fecal incontinence Status: Acute Qualifiers: Fecal incontinence type: unspecified Qualified Codes: R15.9 - Full incontinence of feces (14) Chest pain Status: Chronic Qualifiers: Chest pain type: unspecified Qualified Codes: R07.9 - Chest pain, unspecified (15) Bipolar 1 disorder Status: Chronic (16) 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
[2018-11-13] MEDS ORDERED: BISACODYL 10 MG SUPP (DULCOLAX) PR PRN (08:45)
[2018-11-13] MEDS: POLYETHYLENE GLYCOL 17 GM (MIRALAX) PACK PO SCH ×2 (09:00→22:32)
[2018-11-13] MEDS: RT-ADVAIR HFA 45/21 MCG PER PUFF IH SCH ×2 (09:11→19:19)
[2018-11-13] MEDS: busPIRone 10 MG (BUSPAR) TAB PO SCH ×3 (09:24→22:24)
[2018-11-13] MEDS: IBUPROFEN 800 MG (MOTRIN) TAB PO SCH ×3 (09:25→22:23)
[2018-11-13] MEDS: OLANZapine 5 MG (ZyPREXA) TAB PO SCH (09:25)
[2018-11-13] MEDS: ESTROGENS CONJUGATED 0.45 MG (PREMARIN) TAB PO SCH (09:25)
[2018-11-13] MEDS: LORATADINE (CLARITIN) 10 MG TAB PO SCH (09:25)
[2018-11-13] MEDS: ENOXAPARIN 30 MG/0.3 ML (LOVENOX) SYR SC SCH ×2 (09:29→22:26)
--- NOTE | 2018-11-13 10:30 | NUR ---
Pastoral care visit.
--- NOTE | 2018-11-13 10:32 | Speech Therapy Daily Note ---
Speech Daily Progress Note Subjective Date Seen by Provider: Nov 13, 2018 Time Seen by Provider: 00:30 Patient is excited to be going to the [facility] tomorrow. Objective Patient completed memory tasks related to her daily needs at 90% with minimal cues. Assessment Assessment Current Status: Good Progress Treatment Plan Discontinue ST, Goals Met Communication Comprehension: 5 Expression: 4 Social Cognition Social Interaction: 6 Problem Solvin Memory: 3 Speech Short Term Goals Short Term Goals Short Term Goals 1) The patient will complete memory tasks with 80% or greater with minimal cues. Met 2) The patient will complete problem solving tasks with 80% or greater with minimal cues. Met 3) The patient will complete safety awareness tasks with 80% or greater with minimal cues. Met Speech Revenue Research Analyst Goals Revenue Research Analyst Goals The patient will improve cognitive skills in order to return home safely. Met Speech-Plan Patient/Family Goals Patient/Family Goals: Patient is discharging to the [facility] tomorrow. Treatment Plan Speech Therapy Treatment Plan: Discontinue ST, Goals Met Patient has made good progress as a result of skilled therapy. Treatment Duration: Nov 14, 2018 Frequency: 5 times per week Estimated Hrs Per Day: .5 hour per day Rehab Potential: Fair Barriers to Learning: Patient has mild cognitive deficits, however these are mostly resolved at this time. Pt/Family Agrees to Plan: Yes Safety Risks/Education Teaching Recipient: Patient Teaching Methods: Demonstration, Discussion Response to Teaching: Verbalize Understanding, Return Demonstration Education Topics Provided: Continued safety upon her discharge Time Speech Therapy Time In: 09:00 Speech Therapy Time Out: 09:30 Total Billed Time: 30 Billed Treatment Time 1, BILL Pryor Nov 13, 2018 10:32
[2018-11-13] MEDS: IPRATROPIUM 0.03% NS SCH ×3 (10:48→22:22)
[2018-11-13] MEDS: SALINE NASAL SPRAY (OCEAN) 45 ML BTL SCH ×4 (10:49→22:21)
[2018-11-13] MEDS: FLUTICASONE NASAL SPRAY (FLONASE) 16 GM BTL NS SCH ×2 (10:49→22:21)
--- NOTE | 2018-11-13 11:12 | Physical Therapy Daily Note ---
PT Daily Note-Current Subjective Pt is sitting in W/C in room upon arrival. Pt appears anxious about D/C but agrees to PT. Mental Status Patient Orientation: Person, Confused, Place Attachments: Blum Catheter Transfers Therapy Quality Codes: 6 Independent with activity with or without an assistive device 5 Patient requires set up or clean up by helper. Patient completes activity by themselves 4 Supervision or touching assist (CGA). [place] provide cues , steadying assist 3 The helper provides less than half the effort to complete the activity 2 The helper provides more than half the effort to complete the activity 1 Dependent. The helper does all the effort to complete an activity 7 Patient refused to complete or attempt activity 9 The patient did not perform the activity before the current illness or injury 88 Not attempted due to Medical conditions or safety concerns Transfers (B, C, W/C): 5 Roll Left to Right (QC): 6 Sit to Lying (QC): 6 Sit to Stand (QC): 88 Chair/Zyo-xx-Lwqye Xfer(QC): 5 Bed to/from Chair: 5 Car Transfer (QC): 5 Pt still NWB as well as needs VC at times to instruct sequencing of task. Weight Bearing Right Lower Extremity: Right Non Weight Bearing Left Lower Extremity: Left Non Weight Bearing Gait Training Does the Patient Walk?: No and Walking Goal NOT indicated Wheelchair Training Does the Pt Use a Wheelchair?: Yes Wheelchair Distance: 3=150 ft Distance: 1000' Wheel 50 ft with 2 turns (QC): 5 Wheel 150 ft (QC): 5 Type of Wheelchair: Manual Stair Training 1 Step (curb) (QC): 88 4 Steps (QC): 88 12 Steps (QC): 88 Pt NWB at this time. 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 Treatments Pt performs slide board transfers from W/C to EOB and back as well as from W/C to car for simulated car transfer. Pt propels W/C throughout ARU, on main floor of hospital and in outside garden area for extended practice. Pt returns to room at end of tx with all needs met, call light in hand. Assessment Current Status: Good Progress Pt has improved cognitively with following directions but still needs assistance with problem solving at times. Pt has also improved with slide board transfers and W/C mobility. PT Short Term Goals Short Term Goals Time Frame: Nov 09, 2018 Wheelchair Distance: 1000' PT Pigment Mixer Goals Pigment Mixer Goals PT Retirement Goals Time Frame: Nov 23, 2018 Sit to Lying (QC): 5 Lying-Sitting on Side/Bed(QC): 5 Sit to Stand (QC): 88 Roll Left to Right (QC): 5 Chair/Nmz-lm-Gynql Xfer(QC): 4 Car Transfer (QC): 4 Does the Patient Walk: No and Walking Goal NOT indicated Does the Pt use WC or Scooter?: Yes Distance: 100' Wheelchair Level of Assist: 4 Wheel 50 feet with 2 turns (QC: 5 1 Step (curb) (QC): 88 4 Steps (QC): 88 12 Steps (QC): 88 Picking up an Object (QC): 5 PT Plan Problem List Problem List: Activity Tolerance, Functional Strength Treatment/Plan Treatment Plan: Continue Plan of Care Treatment Plan: Bed Mobility, Concurrent Therapy, Education, Functional Activity Abilio, Functional Strength, Group Therapy, Safety, Therapeutic Exercise, Transfers Treatment Duration: Nov 23, 2018 Frequency: At least 5 of 7 days/Wk (IRF) Estimated Hrs Per Day: 1.5 hours per day Patient and/or Family Agrees t: Yes Safety Risks/Education Patient Education: Transfer Techniques, Correct Positioning, Safety Issues Teaching Recipient: Patient Teaching Methods: Discussion Response to Teaching: Verbalize Understanding Time/GCodes Time In: 815 Time Out: 900 Total Billed Treatment Time: 45 Total Billed Treatment 1, FA (20m) & [facility] x2 (25m) CHA FOOTE HEALTH SUPPORT SPECIALIST Nov 13, 2018 11:12
--- NOTE | 2018-11-13 12:00 | NUR ---
STATES NEEDS ESOPHAGEAL DILATATION DONE LIKE HAS HAD IN THE PAST. IS NEEDING BIGGER PILLS CUT IN HALF.
--- NOTE | 2018-11-13 15:42 | Physical Therapy Daily Note ---
PT Daily Note-Current Subjective Pt laying R sidelying with pillow positioning her upon arrival. Pt agrees to PT but asks to complete Supine EX because "tailbone is sore from sitting up for several hours". Pain Numeric Pain Scale: 5-Moderate Pain Location Body Site: Sacrum Pain Description: Ache Mental Status Patient Orientation: Person, Confused, Place Attachments: Blum Catheter Transfers Therapy Quality Codes: 6 Independent with activity with or without an assistive device 5 Patient requires set up or clean up by helper. Patient completes activity by themselves 4 Supervision or touching assist (CGA). [place] provide cues , steadying assist 3 The helper provides less than half the effort to complete the activity 2 The helper provides more than half the effort to complete the activity 1 Dependent. The helper does all the effort to complete an activity 7 Patient refused to complete or attempt activity 9 The patient did not perform the activity before the current illness or injury 88 Not attempted due to Medical conditions or safety concerns Roll Left to Right (QC): 6 Weight Bearing Right Lower Extremity: Right Non Weight Bearing Left Lower Extremity: Left Non Weight Bearing Gait Training Does the Patient Walk?: No and Walking Goal NOT indicated Exercises Supine Ex: Ankle pumps, Quad Set, Glut sets, Heel Slides, Straight leg raise, Hip abd/add Supine Reps: 20 Treatments Pt completes Supine Ex in bed with RB as needed. Pt is issued HEP to practice Supine & Seated EX after D/C to NH. Pt resting Supine in bed with pillow positioned at end of tx. Pt has all needs met, call light in hand. Assessment Current Status: Good Progress Pt tolerated tx well. Pt continues to exhibit pain in sacrum but OPERATIONS CHIEF advised this will occur for sometime. Pt still confused at times and needs redirection but has improved with slide board transfers, strength & W/C mobility. PT Short Term Goals Short Term Goals Time Frame: Nov 09, 2018 Wheelchair Distance: 1000' PT Mineral Technologist Goals Mineral Technologist Goals PT Mineral Technologist Goals Time Frame: Nov 23, 2018 Sit to Lying (QC): 5 Lying-Sitting on Side/Bed(QC): 5 Sit to Stand (QC): 88 Roll Left to Right (QC): 5 Chair/Fqs-yi-Wfnrg Xfer(QC): 4 Car Transfer (QC): 4 Does the Patient Walk: No and Walking Goal NOT indicated Does the Pt use WC or Scooter?: Yes Distance: 100' Wheelchair Level of Assist: 4 Wheel 50 feet with 2 turns (QC: 5 1 Step (curb) (QC): 88 4 Steps (QC): 88 12 Steps (QC): 88 Picking up an Object (QC): 5 PT Plan Problem List Problem List: Activity Tolerance, Functional Strength, Safety Treatment/Plan Treatment Plan: Continue Plan of Care Treatment Plan: Bed Mobility, Concurrent Therapy, Education, Functional Activity Abilio, Functional Strength, Group Therapy, Safety, Therapeutic Exercise, Transfers Treatment Duration: Nov 23, 2018 Frequency: At least 5 of 7 days/Wk (IRF) Estimated Hrs Per Day: 1.5 hours per day Patient and/or Family Agrees t: Yes Safety Risks/Education Patient Education: Issued Written HEP, Correct Positioning, Safety Issues Teaching Recipient: Patient Teaching Methods: Discussion Response to Teaching: Verbalize Understanding Time/GCodes Time In: 1300 Time Out: 1330 Total Billed Treatment Time: 30 Total Billed Treatment 1, EX x2 (30m) CHA FOOTE OPERATIONS CHIEF Nov 13, 2018 15:42
--- NOTE | 2018-11-13 16:18 | NUR ---
Reviewed Team Conference Summary with patient; she was agreeable to information discussed. Provided confirmation of tomorrow's discharge to [facility]. Patient states she is looking forward to walking, once the weight bearing restriction is lifted. Attempted, twice to contact Dr. Mccullough's office for future appointment clarification; however, no one answered. Will re-attempt in the morning.
[2018-11-13 17:24] VITALS: BP 131/72
[2018-11-13] MEDS: TAMSULOSIN 0.4 MG (FLOMAX) CAP PO SCH (18:20)
--- NOTE | 2018-11-13 19:00 | NUR ---
REQUESTED DULCOLAX SUPPOSITORY AT 1700. NO RESULTS YET.
[2018-11-13] MEDS ORDERED: TAMS0.4C98 PO (20:57)
[2018-11-13] MEDS ORDERED: BETH50TA9 PO (20:57)
[2018-11-13] MEDS ORDERED: SENN-20 PO (20:57)
[2018-11-13] MEDS ORDERED: OXYC1TAB87 PO (20:57)
[2018-11-13] MEDS ORDERED: BACL10TA PO (20:57)
[2018-11-13] MEDS ORDERED: ENOX30DI4 SC (20:57)
[2018-11-13] MEDS ORDERED: TRAM50TA2 PO (20:57)
[2018-11-13] MEDS ORDERED: HYDR-3781 PO (20:57)
[2018-11-13] MEDS ORDERED: ACET-77 PO (20:57)
[2018-11-13] MEDS: ZOLPIDEM 5 MG (AMBIEN) TAB PO PRN (22:23)
[2018-11-13] MEDS: ISOSORBIDE MONONITRATE 60 MG (IMDUR) TAB PO SCH (22:23)
[2018-11-13] MEDS: SENNA W/DOCUSATE (SENOKOT S) TABLET PO SCH (22:24)
[2018-11-13] MEDS: MONTELUKAST 10 MG (SINGULAIR) TAB PO SCH (22:24)
[2018-11-13] MEDS: GABAPENTIN 400 MG (NEURONTIN) CAP PO SCH (22:31)
--- NOTE | 2018-11-13 22:54 | NUR ---
PATIENT REFUSING MIRALAX. PATIENT REPORTS SEVERE DISTRESS EXPERIENCED FROM BOWEL INCONTINENCE DURING AMBULANCE TRIP AND WHILE BEING A PATIENT AT THIS HOSPITAL. PRESENCE PROVIDED WHILE THE PATIENT EXPRESSED FEARS AND CONCERN OVER TRIP [facility]. LAST BM 11/08, HOWEVER BOWEL SOUNDS ARE NORMOACTIVEX4, PATIENT HAS EATEN VERY LITTLE IN PAST FEW DAYS. STATES, "I DON'T WANT TO GAIN WEIGHT AND I DON'T WANT TO HAVE AN ACCIDENT WHEN I GO TO THE BATHROOM. " THIS RN REASSURED PATIENT AND EDUCATED ON CONSTIPATION AND EFFECTS, MASS PERISTALSIS AND EXERCISE/MOVEMENT IN AIDE OF BM. COUGH AND DEEP BREATHING ALSO DONE WITH PATIENT. PATIENT DENIES ANY NEEDS OR C/O AT THIS TIME. PATIENT LYING ON RIGHT SIDE, SEMI PRONE POSITION. REFUSES SCD DESPITE EDUCATION AND RISKS.
[2018-11-14] MEDS: DOCUSATE SODIUM 100 MG (COLACE) CAP PO PRN (01:49)
[2018-11-14] MEDS: POLYETHYLENE GLYCOL 17 GM (MIRALAX) PACK PO SCH ×2 (01:51→09:04)
[2018-11-14] MEDS: ACETAMINOPHEN 500 MG TAB (TYLENOL) PO PRN ×2 (01:52→06:18)
[2018-11-14] MEDS: hydrOXYzine (VISTARIL/ATARAX) 25 MG capsule/tablet PO PRN (01:56)
--- NOTE | 2018-11-14 02:28 | NUR ---
PATIENT HAS SUMMONED NURSING SEVERAL TIMES THROUGHOUT EVENING AND COAL CONVEYOR OPERATOR CONCERNING DISCHARGE AND HAVING A BOWEL ACCIDENT EN ROUTE TO [facility]. PATIENT ENCOURAGED IN EARLY EVENING TO TAKE MEDS ORDERED. DISCUSSED WITH PATIENT TO TAKE LINZESS EARLY TO ADDRESS THE POSSIBLE DIARRHEA RESULT IN AMPLE TIME PRIOR TO LEAVING. INFORMED PATIENT SHE ALSO HAS IMMODIUM IF DEEDED. PATIENT IS AGREEABLE BUT THEN CHANGES HER MIND SEVERAL TIMES. PROVIDED PRESENCE WITH PATIENT TO DISCUSS OVER HER SCENARIOS PATIENT IS CATASTROPHIC THINKING REGARDING HER SCENARIOS SHE CONTINUES TO FIXATE ON. 0057:PATIENT REFUSES ANY MEDS FOR BOWEL BUT AGREEABLE TO DRINK PRUNE JUICE. REQUESTED SOMETHING TO HELP HER SLEEP :MELATONIN GIVEN, PATIENT DECIDED SHE WANTED TO SLEEP AND NOT WORRY ABOUT BOWELS. THIS RN PROVIDED MEDITATION WITH PATIENT. 0140; PATIENT AGREEABLE TO TAKE 2100 DOSE OF MIRALAX AND PRN COLACE. MAR WILL NOT ALLOW THIS RN TO UNDO 2100 DOSE , DOCUMENTED UNSCHEDULED ADMINISTRATION OF MIRALAX. 0156: PATIENT REQUESTING SOMETHING FOR ANXIETY STATES, "I'M JUST SO NERVOUS NOW THAT I TOOK THAT MIRALAX AND COLACE THAT I MIGHT GO TO THE BATHROOM ON WAY OVER THERE." PATIENT REASSURED AGAIN THAT SHOULD THIS WORST CASE SCENARIO HAPPEN, WE WILL PREPARE HER WITH A DEPEND, BED PAD TO ABSORB AND SHE HAS A BLANKET TO DRAPE OVER HER LAP. SHE STATED, "WHAT HAVE YOU GOT ME INTO?" REFERRING SHE MAY HAVE A BOWEL MOVEMENT. PATIENT REMAINS PLEASANT, BUT IS VISIBLY ANXIOUS. VISTARIL GIVEN PER ORDER AND TYLENOL FOR C/O ROUTE HEADACHE." CONTINUE TO MONITOR.
[2018-11-14] MEDS: BETHANECHOL 25 MG (URECHOLINE) TAB PO SCH ×2 (06:17→11:07)
[2018-11-14] MEDS: PANTOPRAZOLE 40 MG (PROTONIX) TAB PO SCH (06:17)
[2018-11-14] MEDS: CALCIUM CARB + VIT D 600 MG (CALCARB + D) TAB PO SCH (06:17)
[2018-11-14] MEDS: LEVOTHYROXINE 50 MCG (LEVOTHROID) TAB PO SCH (06:17)
[2018-11-14] MEDS: VENLAFAXINE 50 MG (EFFEXOR) TABLET PO SCH (06:17)
[2018-11-14] MEDS: LINACLOTIDE 290 MCG (LINZESS) CAPSULE PO SCH (06:25)
[2018-11-14 06:27] VITALS: BP 147/81
--- NOTE | 2018-11-14 07:52 | Therapy Team Discharge Summary ---
Therapy Discharge Summary Discharge Recommendations Date of Discharge Occupational Therapy Decreased Activ Tolerance, Decreased UE Strength Speech-Language Pathology Patient was seen on the ARU s/p multiple fx. The patient was also at a moderate deficit with cognition function based on her SLUMS score. She has received skilled ST since admission with all goals met and her deficits resolved. Patient is discharging to the [facility] in [place] this date. She will also be discharged from skilled ST as well. PT Grocery Packer Goals Correction Goals PT Correction Goals Time Frame: Nov 23, 2018 Transfers (B,C,W/C) (FIM): 4 Roll Left to Right (QC): 5 Sit to Lying (QC): 5 Lying-Sitting on Side/Bed(QC): 5 Sit to Stand (QC): 88 Chair/Cci-xp-Jmmca Xfer(QC): 4 Car Transfer (QC): 4 Does the Patient Walk: No and Walking Goal NOT indicated Does the Pt use WC or Scooter?: Yes Wheelchair (FIM): 2 Wheelchair distance (FIM): 9=556-49 ft Distance: 100' Wheelchair Level of Assist: 4 Wheel 50 feet with 2 turns (QC: 5 Stairs (FIM): 0 1 Step (curb) (QC): 88 4 Steps (QC): 88 12 Steps (QC): 88 Picking up an Object (QC): 5 OT Correction Goals Correction Goals Time Frame: Nov 21, 2018 Eating (FIM): 6 (met-11/13/18) Eating (QC): 6 (met-11/13/18) Oral Hygiene (QC): 5 (met-11/13/18) Grooming(FIM): 5 (met-11/13/18) Bathing(FIM): 4 (met-11/13/18) Bathing Location: L Arm, R Arm, L Upper Leg, R Upper Leg, L Lower Leg (including foot), R Lower Leg (including foot), Chest, Abdomen, Buttocks, Perineal Area Shower/Bathe Self (QC): 4 (met-11/13/18) Upper Body Dressing(FIM): 5 (met-11/13/18) Upper Body Dressing (QC): 5 (met-11/13/18) Lower Body Dressing(FIM): 5 (met-11/13/18) Lower Body Dressing (QC): 5 (met-11/13/18) On/Off Footwear (QC): 5 (met-11/13/18) Toileting(FIM): 5 (met-11/13/18) Toileting Hygiene (QC): 5 (met-11/13/18) Transfers (B,C,W/C) (FIM): 5 (met-11/13/18) Toilet/Commode Transfer(FIM): 5 (not met) Toilet/Commode Transfer (QC): 5 (not met) Shower Transfer(FIM): 3 (not met) Additional Goals: 1-Demonstrate ADL Tasks, 2-Verbalize Understanding, 3- ImproveStrength/Abilio 1=Demonstrate adherence to instructed precautions during ADL tasks. 2=Patient will verbalize/demonstrate understanding of assistive devic es/modifications for ADL. 3=Patient will improve strength/tolerance for activity to enable patient to perform ADL's. Speech Grocery Packer Goals Grocery Packer Goals The patient will improve cognitive skills in order to return home safely. Met BILL PUGH Nov 14, 2018 07:52
[2018-11-14] MEDS: RT-ADVAIR HFA 45/21 MCG PER PUFF IH SCH (08:15)
--- NOTE | 2018-11-14 08:38 | Therapy Team Discharge Summary ---
Therapy Discharge Summary Discharge Recommendations Date of Discharge 11/14/2018 Physical Therapy This patient was seen on ARU post acute hospital stay due to fall that resulted in a pelvic/sacral fx. Prior to her fall, she was living alone at a mod indep level in senior housing. upon admission to ARU, she was dependent for transfers and needed min assist with wc mobiltiy. She was unable to walk or WB due to NWB status. She remains at a NWB status at this time. Treatment has consisted of functional strenght and mobiltiy to promote transfers and wc mobility to allow her increased interaction within her environment. She remains at SBA with transfers and gait and unable to ambulate. Pt has made good progress but would benefit from continued skilled PT to address mobility and progress to gait as her WB status changes. Pt to transfer to [facility] this date to continue to allow bone healing and progression to WB activity. Will DC from ARU at this time. Occupational Therapy Decreased Activ Tolerance, Decreased UE Strength PT Device Test Engineer Goals Device Test Engineer Goals PT Device Test Engineer Goals Time Frame: Nov 23, 2018 Transfers (B,C,W/C) (FIM): 4 (scored 5) Roll Left to Right (QC): 5 Sit to Lying (QC): 5 Lying-Sitting on Side/Bed(QC): 5 Sit to Stand (QC): 88 Chair/Iok-il-Dcmvl Xfer(QC): 4 Car Transfer (QC): 4 Does the Patient Walk: No and Walking Goal NOT indicated Does the Pt use WC or Scooter?: Yes Wheelchair (FIM): 2 (scored 5) Wheelchair distance (FIM): 0=960-47 ft Distance: 100' Wheelchair Level of Assist: 4 Wheel 50 feet with 2 turns (QC: 5 Stairs (FIM): 0 1 Step (curb) (QC): 88 4 Steps (QC): 88 12 Steps (QC): 88 Picking up an Object (QC): 5 Pt is NWB so does not walk or attempt stairs. OT Usp Goals Usp Goals Time Frame: Nov 21, 2018 Eating (FIM): 6 (met-11/13/18) Eating (QC): 6 (met-11/13/18) Oral Hygiene (QC): 5 (met-11/13/18) Grooming(FIM): 5 (met-11/13/18) Bathing(FIM): 4 (met-11/13/18) Bathing Location: L Arm, R Arm, L Upper Leg, R Upper Leg, L Lower Leg (including foot), R Lower Leg (including foot), Chest, Abdomen, Buttocks, Perineal Area Shower/Bathe Self (QC): 4 (met-11/13/18) Upper Body Dressing(FIM): 5 (met-11/13/18) Upper Body Dressing (QC): 5 (met-11/13/18) Lower Body Dressing(FIM): 5 (met-11/13/18) Lower Body Dressing (QC): 5 (met-11/13/18) On/Off Footwear (QC): 5 (met-11/13/18) Toileting(FIM): 5 (met-11/13/18) Toileting Hygiene (QC): 5 (met-11/13/18) Transfers (B,C,W/C) (FIM): 5 (met-11/13/18) Toilet/Commode Transfer(FIM): 5 (not met) Toilet/Commode Transfer (QC): 5 (not met) Shower Transfer(FIM): 3 (not met) Additional Goals: 1-Demonstrate ADL Tasks, 2-Verbalize Understanding, 3- ImproveStrength/Abilio 1=Demonstrate adherence to instructed precautions during ADL tasks. 2=Patient will verbalize/demonstrate understanding of assistive devices/modifications for ADL. 3=Patient will improve strength/tolerance for activity to enable patient to perform ADL's. Speech Device Test Engineer Goals Usp Goals The patient will improve cognitive skills in order to return home safely. Met NATE GRIMES PT Nov 14, 2018 08:38
[2018-11-14] MEDS: IBUPROFEN 800 MG (MOTRIN) TAB PO SCH (08:56)
[2018-11-14] MEDS: busPIRone 10 MG (BUSPAR) TAB PO SCH (08:57)
[2018-11-14] MEDS: LORATADINE (CLARITIN) 10 MG TAB PO SCH (08:57)
[2018-11-14] MEDS: ESTROGENS CONJUGATED 0.45 MG (PREMARIN) TAB PO SCH (08:57)
--- NOTE | 2018-11-14 08:57 | Discharge Summary ---
Diagnosis/Chief Complaint Date of Admission Oct 24, 2018 at 12:48 Date of Discharge Discharge Date: Nov 14, 2018 Discharge Diagnosis Assessment: Debility following sacral fracture and spinal cord injury with flaccidity or spasticity of the lower extremities Bipolar Anxiety Urinary retention due to neurogenic bladder Fisher cath likely will need in/out caths versus SP catheter Fecal incontinence Anemia Chest pain chronic Muscle spasms Nasal congestion Plan: Monitor pain Monitor bowel and bladder Baclofen for muscle spasms and increase the dose IRF protocol Urology appreciated Try to wean off pain medication Low dose of hydroxyzine for anxiety she has a benzodiazepine dependency history Trauma surgery appt 4 weeks Decrease pain meds NH at DC Nasal washes (1) Closed fracture of sacrum Status: Acute Qualifiers: Encounter type: subsequent encounter Zone of sacrum fracture: unspecified portion of sacrum Fracture healing: with nonunion Qualified Codes: S32.10XK - Unspecified fracture of sacrum, subsequent encounter for fracture with nonunion (2) Hyponatremia Status: Acute (3) Traumatic retroperitoneal hematoma Status: Acute Qualifiers: Encounter type: subsequent encounter Qualified Codes: S36.892D - Contusion of other intra-abdominal organs, subsequent encounter (4) Sacral fracture, closed Status: Acute (5) Right rib fracture Status: Acute Qualifiers: Encounter type: subsequent encounter Rib fracture type: multiple ribs Fracture type: closed Fracture healing: with routine healing Qualified Codes: S22.41XD - Multiple fractures of ribs, right side, subsequent encounter for fracture with routine healing (6) Rhabdomyolysis Status: Resolved Resolution Date/Time: 10/25/18 @ 06:25 (7) Fall Status: Acute Qualifiers: Encounter type: subsequent encounter Qualified Codes: W19.XXXD - Unspecified fall, subsequent encounter (8) Fisher catheter in place Status: Acute (9) Neurogenic bladder Status: Acute (10) HTN (hypertension) Status: Chronic Qualifiers: Hypertension type: essential hypertension Qualified Codes: I10 - Essential (primary) hypertension (11) Hypothyroidism Status: Chronic Qualifiers: Hypothyroidism type: acquired Qualified Codes: E03.9 - Hypothyroidism, unspecified (12) Anemia Status: Chronic Qualifiers: Anemia type: unspecified type Qualified Codes: D64.9 - Anemia, unspecified (13) Fecal incontinence Status: Acute Qualifiers: Fecal incontinence type: unspecified Qualified Codes: R15.9 - Full incontinence of feces (14) Chest pain Status: Chronic Qualifiers: Chest pain type: unspecified Qualified Codes: R07.9 - Chest pain, unspecified (15) Bipolar 1 disorder Status: Chronic (16) MGUS (monoclonal gammopathy of unknown significance) Status: Chronic (17) COPD (chronic obstructive pulmonary disease) Status: Chronic (18) DVT prophylaxis Status: Acute Reason Hospital Visit Verification and Attestation of Medical Student E/M Service A medical student performed and documented this service in my presence. I reviewed and verified all information documented by the medical student and made modifications to such information, when appropriate. I personally performed the physical exam and medical decision making. Brianna Parker Jeferson, Oct 25, 2018,06:29 Discharge Summary Discharge Physical Examination Allergies: Coded Allergies: fluticasone (Verified Allergy, Unknown, MOUTH SORES AND SWELLING, 11/08/18) pregabalin (Verified Allergy, Unknown, HIVES, 11/08/18) HIVES AND SWELLING salmeterol (Verified Allergy, Unknown, MOUTH SORES AND SWELLING, 11/08/18) Vitals & I&Os Vital Signs Date Time Temp Pulse Resp B/P (MAP) Pulse Ox O2 Delivery O2 Flow Rate FiO2 11/14/18 12:05 76 20 128/67 98 Room Air 11/14/18 06:27 36.5 General Appearance: Alert, Oriented X3, Cooperative Respiratory: Clear to Auscultation Cardiovascular: Regular Rate Neuro: Normal Speech, Other (decreased muscle strength legs b/l) Hospital Course Was the Problem List Reviewed?: Yes Hospital course: Pt had an uneventful hospital course for nearly three weeks in inpatient rehab after she was admitted following a sacral fracture that required [place], [place] transfer for specialty orthopedic trauma surgery. She underwent that surgery and was transported here to continue rehab. She was able to successfully move around on the transfer board but lower extremity weakness continued to be a problem. She did require fisher catheter to be placed when she failed the voiding trial for several days by Dr. Khan because of her debility she required indwelling instead of in and out because of her significant weakness. She will ultimately need a super-pubic catheter. Overall she did well and was able to be discharged in improved condition to shelter in [place] for skilled care. She will follow up at [facility] in one week. Labs (last 24 hrs) Laboratory Tests 10/25/18 05:45: White Blood Count 6.3, Red Blood Count 2.75L, Hemoglobin 9.0L, Hematocrit 28L, Mean Corpuscular Volume 101H, Mean Corpuscular Hemoglobin 33, Mean Corpuscular Hemoglobin Concent 32, Red Cell Distribution Width 14.4, Platelet Count 518H, Mean Platelet Volume 8.5, Neutrophils (%) (Auto) 46, Lymphocytes (%) (Auto) 41, Monocytes (%) (Auto) 9, Eosinophils (%) (Auto) 3, Basophils (%) (Auto) 1, Neutrophils # (Auto) 2.9, Lymphocytes # (Auto) 2.6, Monocytes # (Auto) 0.6, Eosinophils # (Auto) 0.2, Basophils # (Auto) 0.1, Sodium Level 128L, Potassium Level 3.9, Chloride Level 93L, Carbon Dioxide Level 27, Anion Gap 8, Blood Urea Nitrogen 18, Creatinine 0.81, Estimat Glomerular Filtration Rate > 60, BUN/Creatinine Ratio 22, Glucose Level 88, Calcium Level 9.2, Corrected Calcium 10.2H, Total Bilirubin 0.5, Aspartate Amino Transf (AST/SGOT) 39H, Alanine Aminotransferase (ALT/SGPT) 24, Alkaline Phosphatase 145H, Total Protein 7.8, Albumin 2.7L 10/28/18 05:16: White Blood Count 6.2, Red Blood Count 2.47L, Hemoglobin 8.1L, Hematocrit 26L, Mean Corpuscular Volume 104H, Mean Corpuscular Hemoglobin 33, Mean Corpuscular Hemoglobin Concent 32, Red Cell Distribution Width 14.9H, Platelet Count 517H, Mean Platelet Volume 8.3, Neutrophils (%) (Auto) 44, Lymphocytes (%) (Auto) 43, Monocytes (%) (Auto) 8, Eosinophils (%) (Auto) 4, Basophils (%) (Auto) 1, Jennifer trophils # (Auto) 2.7, Lymphocytes # (Auto) 2.7, Monocytes # (Auto) 0.5, Eosinophils # (Auto) 0.3, Basophils # (Auto) 0.1, Sodium Level 134L, Potassium Level 4.1, Chloride Level 98, Carbon Dioxide Level 26, Anion Gap 10, Blood Urea Nitrogen 17, Creatinine 0.77, Estimat Glomerular Filtration Rate > 60, BUN/Creatinine Ratio 22, Glucose Level 89, Calcium Level 8.9, Corrected Calcium 10.0, Total Bilirubin 0.3, Aspartate Amino Transf (AST/SGOT) 25, Alanine Aminotransferase (ALT/SGPT) 21, Alkaline Phosphatase 168H, Total Protein 7.5, Albumin 2.6L 10/28/18 11:05: Glucometer 93 11/04/18 05:01: White Blood Count 4.5, Red Blood Count 2.56L, Hemoglobin 8.6L, Hematocrit 27L, Mean Corpuscular Volume 104H, Mean Corpuscular Hemoglobin 34, Mean Corpuscular Hemoglobin Concent 33, Red Cell Distribution Width 14.8H, Platelet Count 368, Mean Platelet Volume 8.5, Neutrophils (%) (Auto) 33L, Lymphocytes (%) (Auto) 46H , Monocytes (%) (Auto) 11, Eosinophils (%) (Auto) 8, Basophils (%) (Auto) 1, Neutrophils # (Auto) 1.5L, Lymphocytes # (Auto) 2.1, Monocytes # (Auto) 0.5, Eosinophils # (Auto) 0.4H, Basophils # (Auto) 0.1, Sodium Level 137, Potassium Level 4.3, Chloride Level 104, Carbon Dioxide Level 26, Anion Gap 7, Blood Urea Nitrogen 13, Creatinine 0.74, Estimat Glomerular Filtration Rate > 60, BUN/Creatinine Ratio 18, Glucose Level 82, Calcium Level 8.7, Corrected Calcium 9.8, Total Bilirubin 0.3, Aspartate Amino Transf (AST/SGOT) 24, Alanine Aminotransferase (ALT/SGPT) 24, Alkaline Phosphatase 144H, Total Protein 7.5, Albumin 2.6L 11/11/18 04:50: White Blood Count 4.4, Red Blood Count 2.76L, Hemoglobin 9.0L, Hematocrit 28L, Mean Corpuscular Volume 103H, Mean Corpuscular Hemoglobin 33, Mean Corpuscular Hemoglobin Concent 32, Red Cell Distribution Width 14.9H, Platelet Count 289, Mean Platelet Volume 8.7, Neutrophils (%) (Auto) 32L, Lymphocytes (%) (Auto) 49H , Monocytes (%) (Auto) 9, Eosinophils (%) (Auto) 9, Basophils (%) (Auto) 1, Neutrophils # (Auto) 1.4L, Lymphocytes # (Auto) 2.2, Monocytes # (Auto) 0.4, Eosinophils # (Auto) 0.4H, Basophils # (Auto) 0.1, Sodium Level 137, Potassium Level 3.6, Chloride Level 103, Carbon Dioxide Level 25, Anion Gap 9, Blood Urea Nitrogen 15, Creatinine 0.74, Estimat Glomerular Filtration Rate > 60, BUN/Creatinine Ratio 20, Glucose Level 87, Calcium Level 8.8, Corrected Calcium 9.9, Total Bilirubin 0.2, Aspartate Amino Transf (AST/SGOT) 13, Alanine Aminotransferase (ALT/SGPT) 13, Alkaline Phosphatase 111, Total Protein 8.2, Albumin 2.6L Pending Labs Laboratory Tests 10/25/18 05:45: White Blood Count 6.3, Red Blood Count 2.75, Hemoglobin 9.0, Hematocrit 28, Mean Corpuscular Volume 101, Mean Corpuscular Hemoglobin 33, Mean Corpuscular Hemoglobin Concent 32, Red Cell Distribution Width 14.4, Platelet Count 518, Mean Platelet Volume 8.5, Neutrophils (%) (Auto) 46, Lymphocytes (%) (Auto) 41, Monocytes (%) (Auto) 9, Eosinophils (%) (Auto) 3, Basophils (%) (Auto) 1, Neutrophils # (Auto) 2.9, Lymphocytes # (Auto) 2.6, Monocytes # (Auto) 0.6, Eosinophils # (Auto) 0.2, Basophils # (Auto) 0.1, Sodium Level 128, Potassium Level 3.9, Chloride Level 93, Carbon Dioxide Level 27, Anion Gap 8, Blood Urea Nitrogen 18, Creatinine 0.81, Estimat Glomerular Filtration Rate > 60, BUN/Creatinine Ratio 22, Glucose Level 88, Calcium Level 9.2, Corrected Calcium 10.2, Total Bilirubin 0.5, Aspartate Amino Transf (AST/SGOT) 39, Alanine Aminotransferase (ALT/SGPT) 24, Alkaline Phosphatase 145, Total Protein 7.8, Albumin 2.7 10/28/18 05:16: White Blood Count 6.2, Red Blood Count 2.47, Hemoglobin 8.1, Hematocrit 26, Mean Corpuscular Volume 104, Mean Corpuscular Hemoglobin 33, Mean Corpuscular Hemoglobin Concent 32, Red Cell Distribution Width 14.9, Platelet Count 517, Mean Platelet Volume 8.3, Neutrophils (%) (Auto) 44, Lymphocytes (%) (Auto) 43, Monocytes (%) (Auto) 8, Eosinophils (%) (Auto) 4, Basophils (%) (Auto) 1, Neutrophils # (Auto) 2.7, Lymphocytes # (Auto) 2.7, Monocytes # (Auto) 0.5, Eosinophils # (Auto) 0.3, Basophils # (Auto) 0.1, Sodium Level 134, Potassium Level 4.1, Chloride Level 98, Carbon Dioxide Level 26, Anion Gap 10, Blood Urea Nitrogen 17, Creatinine 0.77, Estimat Glomerular Filtration Rate > 60, BUN/Creatinine Ratio 22, Glucose Level 89, Calcium Level 8.9, Corrected Calcium 10.0, Total Bilirubin 0.3, Aspartate Amino Transf (AST/SGOT) 25, Alanine Aminotransferase (ALT/SGPT) 21, Alkaline Phosphatase 168, Total Protein 7.5, Albumin 2.6 10/28/18 11:05: Glucometer 93 11/04/18 05:01: White Blood Count 4.5, Red Blood Count 2.56, Hemoglobin 8.6, Hematocrit 27, Mean Corpuscular Volume 104, Mean Corpuscular Hemoglobin 34, Mean Corpuscular H emoglobin Concent 33, Red Cell Distribution Width 14.8, Platelet Count 368, Mean Platelet Volume 8.5, Neutrophils (%) (Auto) 33, Lymphocytes (%) (Auto) 46, Monocytes (%) (Auto) 11, Eosinophils (%) (Auto) 8, Basophils (%) (Auto) 1, Neutrophils # (Auto) 1.5, Lymphocytes # (Auto) 2.1, Monocytes # (Auto) 0.5, Eosinophils # (Auto) 0.4, Basophils # (Auto) 0.1, Sodium Level 137, Potassium Level 4.3, Chloride Level 104, Carbon Dioxide Level 26, Anion Gap 7, Blood Urea Nitrogen 13, Creatinine 0.74, Estimat Glomerular Filtration Rate > 60, BUN/Creatinine Ratio 18, Glucose Level 82, Calcium Level 8.7, Corrected Calcium 9.8, Total Bilirubin 0.3, Aspartate Amino Transf (AST/SGOT) 24, Alanine Aminotransferase (ALT/SGPT) 24, Alkaline Phosphatase 144, Total Protein 7.5, Alb umin 2.6 11/11/18 04:50: White Blood Count 4.4, Red Blood Count 2.76, Hemoglobin 9.0, Hematocrit 28, Mean Corpuscular Volume 103, Mean Corpuscular Hemoglobin 33, Mean Corpuscular Hemoglobin Concent 32, Red Cell Distribution Width 14.9, Platelet Count 289, Mean Platelet Volume 8.7, Neutrophils (%) (Auto) 32, Lymphocytes (%) (Auto) 49, Monocytes (%) (Auto) 9, Eosinophils (%) (Auto) 9, Basophils (%) (Auto) 1, Neutrophils # (Auto) 1.4, Lymphocytes # (Auto) 2.2, Monocytes # (Auto) 0.4, Eosinophils # (Auto) 0.4, Basophils # (Auto) 0.1, Sodium Level 137, Potassium Level 3.6, Chloride Level 103, Carbon Dioxide Level 25, Anion Gap 9, Blood Urea Nitrogen 15, Creatinine 0.74, Estimat Glomerular Filtration Rate > 60, BUN/Creatinine Ratio 20, Glucose Level 87, Calcium Level 8.8, Corrected Calcium 9.9, Total Bilirubin 0.2, Aspartate Amino Transf (AST/SGOT) 13, Alanine Aminotra nsferase (ALT/SGPT) 13, Alkaline Phosphatase 111, Total Protein 8.2, Albumin 2.6 Discharge Home Medications: Active Scripts Active Urecholine (Bethanechol Chloride) 50 Mg Tablet 50 Mg PO ACHS 30 Days Senna-Time S Tablet (Sennosides/Docusate Sodium) 1 Each Tablet 2 Ea PO HS 30 Days Hydroxyzine Pamoate 25 Mg Capsule 5 Mg PO Q6H PRN 30 Days Acetaminophen 500 Mg Tablet 500 Mg PO Q4H PRN 30 Days Percocet 5-325 mg Tablet (Oxycodone HCl/Acetaminophen) 1 Each Tablet 1 Tab PO HS PRN Enoxaparin Sodium 30 Mg/0.3 Ml Syringe 30 Mg SC BID 30 Days Baclofen 10 Mg Tablet 10 Mg PO TID PRN 30 Days Flomax (Tamsulosin HCl) 0.4 Mg Cap 0.4 Mg PO DAILY@1800 30 Days Tramadol HCl 50 Mg Tablet 100 Mg PO HS PRN TAKES 2 (50MG) TABLETS Reported Piroxicam 20 Mg Capsule 20 Mg PO DAILY Zolpidem Tartrate 10 Mg Tablet 10 Mg PO HS PRN Venlafaxine HCl 25 Mg Tablet 25 Mg PO BID Pantoprazole Sodium 40 Mg Tablet.dr 40 Mg PO DAILY Linzess (Linaclotide) 290 Mcg Capsule 290 Mcg PO DAILY Ipratropium [place] 30 Ml [place] 2 Sprays NS TID Ibu (Ibuprofen) 800 Mg Tablet 800 Mg PO TID PRN Gabapentin 800 Mg Tablet 800 Mg PO HS Etodolac 200 Mg Capsule 200 Mg PO Q8H PRN Diclofenac Sodium 100 Gm Gel..gram. 2 Gm TOP QID PRN Dexilant (Dexlansoprazole) 60 Mg Cap.dr.bp 60 Mg PO DAILY Buspirone HCl 10 Mg Tablet 10 Mg PO TID Fluticasone Propionate 16 Gm [place].susp 2 Sprays NS BID Symbicort 80-4.5 Mcg Inhaler (Budesonide/Formoterol Fumarate) 10.2 Gm Hfa.aer.ad 2 Puff INH BID Montelukast Sodium 10 Mg Tablet 10 Mg PO HS Isosorbide Mononitrate ER (Isosorbide Mononitrate) 60 Mg Tab 60 Mg PO HS Cetirizine HCl 10 Mg Tablet 10 Mg PO DAILY Levothyroxine Sodium 50 Mcg Tablet 50 Mcg PO DAILY Premarin (Estrogens, Conjugated) 0.9 Mg Tablet 0.9 Mg PO DAILY Olanzapine 20 Mg Tablet 20 Mg PO DAILY Lamotrigine 100 Mg Tablet 100 Mg PO DAILY Instructions to patient/family Please see electronic discharge instructions given to patient. Diagnosis/Problems Diagnosis/Problems (1) Closed fracture of sacrum Status: Acute Qualifiers: Qualified Codes: S32.10XK - Unspecified fracture of sacrum, subsequent encounter for fracture with nonunion (2) Hyponatremia Status: Acute (3) Traumatic retroperitoneal hematoma Status: Acute Qualifiers: Qualified Codes: S36.892D - Contusion of other intra-abdominal organs, sub sequent encounter (4) Sacral fracture, closed Status: Acute (5) Right rib fracture Status: Acute Qualifiers: Qualified Codes: S22.41XD - Multiple fractures of ribs, right side, subsequent encounter for fracture with routine healing (6) Rhabdomyolysis Status: Resolved Resolution Date/Time: 10/25/18 @ 06:25 (7) Fall Status: Acute Qualifiers: Qualified Codes: W19.XXXD - Unspecified fall, subsequent encounter (8) Fisher catheter in place Status: Acute (9) Neurogenic bladder Status: Acute (10) HTN (hypertension) Status: Chronic Qualifiers: Qualified Codes: I10 - Essential (primary) hypertension (11) Hypothyroidism Status: Chronic Qualifiers: Qualified Codes: E03.9 - Hypothyroidism, unspecified (12) Anemia Status: Chronic Qualifiers: Qualified Codes: D64.9 - Anemia, unspecified (13) Fecal incontinence Status: Acute Qualifiers: Qualified Codes: R15.9 - Full incontinence of feces (14) Chest pain Status: Chronic Qualifiers: Qualified Codes: R07.9 - Chest pain, unspecified (15) Bipolar 1 disorder Status: Chronic (16) MGUS (monoclonal gammopathy of unknown significance) Status: Chronic (17) COPD (chronic obstructive pulmonary disease) Status: Chronic (18) DVT prophylaxis Status: Acute Clinical Quality Measures DVT/VTE Risk/Contraindication: Risk Factor Score Per Nursin RFS Level Per Nursing on Admit: 4+=Very High BRIANNA ESPINOZA DO Nov 14, 2018 08:57
[2018-11-14] MEDS: OLANZapine 5 MG (ZyPREXA) TAB PO SCH (08:59)
[2018-11-14] MEDS: SALINE NASAL SPRAY (OCEAN) 45 ML BTL SCH (09:03)
[2018-11-14] MEDS: FLUTICASONE NASAL SPRAY (FLONASE) 16 GM BTL NS SCH (09:04)
[2018-11-14] MEDS: IPRATROPIUM 0.03% NS SCH (09:04)
--- NOTE | 2018-11-14 09:45 | NUR ---
Appointment scheduled with Dr. Mccullough, for December 03 at 12:40. Patient and RN notified of scheduled appointment. Patient with no concerns and prepared to discharge to [facility], this morning.
[2018-11-14] MEDS: ENOXAPARIN 30 MG/0.3 ML (LOVENOX) SYR SC SCH (10:05)
--- NOTE | 2018-11-14 11:07 | Therapy Team Discharge Summary ---
Therapy Discharge Summary Discharge Recommendations Date of Discharge 11-14-18 Therapy D/C Recommendations: 24 hr Supervision, Occupational Therapy Home Care, Long-Term (TCU/NH) Occupational Therapy Pt. was seen by occupational therapy to increase overall strength and independence with daily tasks. Pt. met most goals, with exception of shower transfer and toileting. Pt. able to complete tasks with set up when appropriate equipment is given to her. Pt. still requires set up for most tasks, thus needing further care. Pt. transferring to fdc facility to continue increasing UE strength, endurance, and independence overall. Recommend further OT training. Decreased Activ Tolerance, Decreased UE Strength, Impaired Cognition, Impaired I ADL's, Impaired Self-Care Skills PT [facility] Goals [facility] Goals PT [facility] Goals Time Frame: Nov 23, 2018 Transfers (B,C,W/C) (FIM): 4 (scored 5) Roll Left to Right (QC): 5 Sit to Lying (QC): 5 Lying-Sitting on Side/Bed(QC): 5 Sit to Stand (QC): 88 Chair/[id number]-[id number] Xfer(QC): 4 Car Transfer (QC): 4 Does the Patient Walk: No and Walking Goal NOT indicated Does the Pt use WC or Scooter?: Yes Wheelchair (FIM): 2 (scored 5) Wheelchair distance (FIM): 8=010-59 ft Distance: 100' Wheelchair Level of Assist: 4 Wheel 50 feet with 2 turns (QC: 5 Stairs (FIM): 0 1 Step (curb) (QC): 88 4 Steps (QC): 88 12 Steps (QC): 88 Picking up an Object (QC): 5 OT [facility] Goals [facility] Goals Time Frame: Nov 21, 2018 Eating (FIM): 6 (met-11/13/18) Eating (QC): 6 (met-11/13/18) Oral Hygiene (QC): 5 (met-11/13/18) Grooming(FIM): 5 (met-11/13/18) Bathing(FIM): 4 (met-11/13/18) Bathing Location: L Arm, R Arm, L Upper Leg, R Upper Leg, L Lower Leg (inc luding foot), R Lower Leg (including foot), Chest, Abdomen, Buttocks, Perineal Area Shower/Bathe Self (QC): 4 (met-11/13/18) Upper Body Dressing(FIM): 5 (met-11/13/18) Upper Body Dressing (QC): 5 (met-11/13/18) Lower Body Dressing(FIM): 5 (met-11/13/18) Lower Body Dressing (QC): 5 (met-11/13/18) On/Off Footwear (QC): 5 (met-11/13/18) Toileting(FIM): 5 (not met) Toileting Hygiene (QC): 5 (not met) Transfers (B,C,W/C) (FIM): 5 (met-11/13/18) Toilet/Commode Transfer(FIM): 5 (not met) Toilet/Commode Transfer (QC): 5 (not met) Shower Transfer(FIM): 3 (not met) Additional Goals: 1-Demonstrate ADL Tasks, 2-Verbalize Understanding, 3- ImproveStrength/Abilio 1=Demonstrate adherence to instructed precautions during ADL tasks. 2=Patient will verbalize/demonstrate understanding of assistive devices/modifications for ADL. 3=Patient will improve strength/tolerance for activity to enable patient to perform ADL's. Speech [facility] Goals [facility] Goals The patient will improve cognitive skills in order to return home safely. THOMAS Chávez OT Nov 14, 2018 11:07
[2018-11-14 12:05] VITALS: BP 128/67
== END 2018-11-14 11:15 | DRG 949 ==
LOC: 4TH 12:48
PROVIDERS: ADMIT Internal Medicine; ATTEND Internal Medicine
DX: S24.154D Other incomplete lesion at T11-T12 level of thoracic spinal cord, subsequent encounter (principal); G82.22 Paraplegia, incomplete; S22.080D Wedge compression fracture of T11-T12 vertebra, subsequent encounter for fracture with routine healing; S32.810D Multiple fractures of pelvis with stable disruption of pelvic ring, subsequent encounter for fracture with routine healing; S32.111D Minimally displaced Zone I fracture of sacrum, subsequent encounter for fracture with routine healing; S22.31XD Fracture of one rib, right side, subsequent encounter for fracture with routine healing; S36.892D Contusion of other intra-abdominal organs, subsequent encounter; R47.01 Aphasia; E87.1 Hypo-osmolality and hyponatremia; N31.9 Neuromuscular dysfunction of bladder, unspecified; R33.9 Retention of urine, unspecified; I10 Essential (primary) hypertension; J45.909 Unspecified asthma, uncomplicated; R15.9 Full incontinence of feces; K21.9 Gastro-esophageal reflux disease without esophagitis; K59.09 Other constipation; F41.9 Anxiety disorder, unspecified; F31.9 Bipolar disorder, unspecified; R42 Dizziness and giddiness; R29.6 Repeated falls; D64.9 Anemia, unspecified; D47.2 Monoclonal gammopathy; E89.0 Postprocedural hypothyroidism; Z90.710 Acquired absence of both cervix and uterus; W19.XXXD Unspecified fall, subsequent encounter; Y92.018 Other place in single-family (private) house as the place of occurrence of the external cause
CPT/HCPCS: 36415; 80053; 82962; 85025; 94640; 94760

== ENCOUNTER 2018-12-17 16:57 | Emergency (ER) | payer MEDICAID ==
[~2018-12-17] VITALS: Ht 160 cm; Wt 68.2 kg
[~2018-12-17 16:57] MED LIST changes: +ACET-77 PO; -ALPRAZolam 0.25 MG (XANAX) TAB PO PRN; +BETH50TA9 PO; -CALCIUM CARBONATE 500 MG (TUMS) TAB.CHEW PO PRN; +ENOX30DI4 SC; +HYDR-3781 PO; -LOPERAMIDE 2 MG (IMODIUM) TABLET PO PRN; -MELATONIN 3 MG TABLET PO PRN; -ONDANSETRON 4 MG (ZOFRAN) ORAL DISSOLVE TAB PO PRN; +SENN-20 PO; -SENNA W/DOCUSATE (SENOKOT S) TABLET PO SCH; +TAMS0.4C98 PO; -diphenhydrAMINE 25 MG TAB (BENADRYL) PO PRN
[2018-12-17] MEDS ORDERED: LACTATED RINGERS 1,000 ML IV ONE (17:30)
[2018-12-17 17:40] LABS: BASOPHILS % (AUTO) 1 % (0-10); EOSINOPHILS # (AUTO) 0.1 10^3/uL (0.0-0.3); EOSINOPHILS % (AUTO) 2 % (0-10); HEMATOCRIT 32 % (35-52); HEMOGLOBIN 10.7 G/DL (11.5-16.0); LYMPHOCYTES # (AUTO) 2.3 X 10^3 (1.0-4.0); LYMPHOCYTES % (AUTO) 36 % (12-44); MEAN CORPUSCULAR HEMOGLOBIN 33 PG (25-34); MEAN CORPUSCULAR HGB CONC 34 G/DL (32-36); MEAN CORPUSCULAR VOLUME 98 FL (80-99); MEAN PLATELET VOLUME 9.5 FL (7.4-10.4); MONOCYTES # (AUTO) 0.6 X 10^3 (0.0-1.0); MONOCYTES % (AUTO) 9 % (0-12); NEUTROPHILS # (AUTO) 3.4 X 10^3 (1.8-7.8); NEUTROPHILS % (AUTO) 53 % (42-75); PLATELET COUNT 323 10^3/uL (130-400); RED CELL DISTRIBUTION WIDTH 13.1 % (10.0-14.5); WHITE BLOOD COUNT 6.5 10^3/uL (4.3-11.0)
[2018-12-17 17:59] LABS: BILIRUBIN,TOTAL 0.2 MG/DL (0.1-1.0); CALCIUM 9.4 MG/DL (8.5-10.1); CREATININE SERUM 1.15 MG/DL (0.60-1.30); POTASSIUM 3.3 MMOL/L (3.6-5.0); TOTAL PROTEIN 9.4 GM/DL (6.4-8.2)
--- NOTE | 2018-12-17 18:11 | Diagnostic Imaging Report ---
EXAMINATION: Chest 1 view HISTORY: Altered mental status. FINDINGS: Comparison is 10/13/2018. The lungs are clear. No edema. No pneumonia. No pleural effusion. No pneumothorax. Heart is normal in size. IMPRESSION: 1. Clear lungs. Dictated by: Dictated on workstation # [id number]
--- NOTE | 2018-12-17 18:20 | ED Neurological Problem ---
General Chief Complaint: Altered Mental Status Stated Complaint: CONFUSION Nursing Triage Note: Assisted pt out of POV via ED w/c by ED staff to room #2. Daughter @ side rpeorts pt was seen @ [place] ED on 12/16/18 where she was diagnosed with a UTI and dehydration. Daughter reports increase in confusion and weakness. Pt reports urinary urgency, frequency, incontinence, and burning. Denies fever or chills. NIH 0. Nursing Sepsis Screen: No Definite Risk Source: patient Exam Limitations: no limitations History of Present Illness Date Seen by Provider: Dec 17, 2018 Time Seen by Provider: 17:55 Initial Comments Patient presents to ER by private conveyance with daughter and chief complaint that since Sunday the daughter was talking to her mother on the phone and noticed that she was very confused. This came up Sunday and took her to the ER in [place] where she was described as having a urinary tract infection. They ga ve her IV antibiotics fluids and sent her home. The patient has continued to be very confused, hallucinating and still incontinent of urine. The daughter gives a background 2 weeks ago she was discharged from inpatient rehabilitation are she was healing up from a fall and subsequent hip fractures. She had a Blum catheter in that entire time and then when she was discharged they took it out. She's had no fevers chills nausea vomiting or diarrhea. The daughter obtain briefs for her mother and agrees to stay with her until the end of the week. She is very concerned about the confusion. She seen no lateralizing symptoms. No weakness, facial droop/asymmetry or slurred speech. She says it tends to get worse in the evening. Allergies and Home Medications Allergies Coded Allergies: fluticasone (Verified Allergy, Unknown, MOUTH SORES AND SWELLING, 11/08/18) pregabalin (Verified Allergy, Unknown, HIVES, 11/08/18) HIVES AND SWELLING salmeterol (Verified Allergy, Unknown, MOUTH SORES AND SWELLING, 11/08/18) Home Medications Acetaminophen 500 Mg Tablet, 500 MG PO Q4H PRN for PAIN-MILD Prescribed by: ARIELA ESPINOZA on 11/13/182056 Baclofen 10 Mg Tablet, 10 MG PO TID PRN for MUSCLE SPASMS Prescribed by: ARIELA ESPINOZA on 11/13/182056 Bethanechol Chloride 50 Mg Tablet, 50 MG PO ACHS Prescribed by: ARIELA ESPINOZA on 11/13/182056 Budesonide/Formoterol Fumarate 10.2 Gm Hfa.aer.ad, 2 PUFF INH BID, (Reported) Buspirone HCl 10 Mg Tablet, 10 MG PO TID, (Reported) Cetirizine HCl 10 Mg Tablet, 10 MG PO DAILY, (Reported) Dexlansoprazole 60 Mg Cap.bp, 60 MG PO DAILY, (Reported) Diclofenac Sodium 100 Gm Gel..gram., 2 GM TOP QID PRN for JOINT PAIN, (Reported) Enoxaparin Sodium 30 Mg/0.3 Ml Syringe, 30 MG SC BID Prescribed by: ARIELA ESPINOZA on 11/13/182056 Estrogens, Conjugated 0.9 Mg Tablet, 0.9 MG PO DAILY, (Reported) Etodolac 200 Mg Capsule, 200 MG PO Q8H PRN for PAIN-MILD, (Reported) Fluticasone Propionate 16 Gm [place].susp, 2 SPRAYS NS BID, (Reported) Gabapentin 800 Mg Tablet, 800 MG PO HS, (Reported) Hydroxyzine Pamoate 25 Mg Capsule, 5 MG PO Q6H PRN for ANXIETY Prescribed by: ARIELA ESPINOZA on 11/13/182056 Ibuprofen 800 Mg Tablet, 800 MG PO TID PRN for PAIN-MILD, (Reported) Ipratropium [place] 30 Ml [place], 2 SPRAYS NS TID, (Reported) Isosorbide Mononitrate 60 Mg Tab, 60 MG PO HS, (Reported) Lamotrigine 100 Mg Tablet, 100 MG PO DAILY, (Reported) Levothyroxine Sodium 50 Mcg Tablet, 50 MCG PO DAILY, (Reported) Linaclotide 290 Mcg Capsule, 290 MCG PO DAILY, (Reported) Montelukast Sodium 10 Mg Tablet, 10 MG PO HS, (Reported) Olanzapine 20 Mg Tablet, 20 MG PO DAILY, (Reported) Oxycodone HCl/Acetaminophen 1 Each Tablet, 1 TAB PO HS PRN for PAIN-MODERATE Prescribed by: ARIELA ESPINOZA on 11/13/182056 Pantoprazole Sodium 40 Mg Tablet.dr, 40 MG PO DAILY, (Reported) Piroxicam 20 Mg Capsule, 20 MG PO DAILY, (Reported) Sennosides/Docusate Sodium 1 Each Tablet, 2 EA PO HS Prescribed by: ARIELA ESPINOZA on 11/13/182056 Tamsulosin HCl 0.4 Mg Cap, 0.4 MG PO DAILY@1800 Prescribed by: ARIELA ESPINOZA on 11/13/182056 Tramadol HCl 50 Mg Tablet, 100 MG PO HS PRN for PAIN-MODERATE TAKES 2 (50MG) TABLETS Prescribed by: ARIELA ESPINOZA on 11/13/182056 Venlafaxine HCl 25 Mg Tablet, 25 MG PO BID, (Reported) Zolpidem Tartrate 10 Mg Tablet, 10 MG PO HS PRN for SLEEP, (Reported) Patient Home Medication List Home Medication List Reviewed: Yes Review of Systems Review of Systems Constitutional: No chills, No fever Eyes: Denies Blindness, Denies Blurred Vision Ears, Nose, Mouth, Throat: denies ear pain, denies ear discharge Respiratory: No cough, No short of breath Cardiovascular: No chest pain, No edema Gastrointestinal: No abdominal pain, No nausea Genitourinary: No dysuria; incontinence All Other Systems Reviewed Negative Unless Noted: Yes Past Kpepxms-Sfmouy-Ecxuhs Hx Patient Social History Alcohol Use: Denies Use Recreational Drug Use: No Smoking Status: Never a Smoker 2nd Hand Smoke Exposure: No Recent Foreign Travel: No Contact w/Someone Who Travel: No Recent Infectious Disease Expo: No Recent Hopitalizations: No (pt unable to provide current hx, all hx obtained through old records) Immunizations Up To Date Tetanus Booster (TDap): Less than 5yrs Date of Pneumonia Vaccine: Aug 23, 2018 Seasonal Allergies Seasonal Allergies: Yes Past Medical History Surgeries: Yes (I&D OF SPIDER BITES, thyroid nodules, l shoulder) Gallbladder, Hysterectomy, Oophorectomy, Orthopedic, Thyroidectomy Respiratory: Yes Asthma Cardiac: Yes Hypertension Neurological: Yes (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, current expressive aphasia) Reproductive Disorders: No [employer]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 Genitourinary: No Gastrointestinal: Yes (esophageal dilitation every 6 months) Gastroesophageal Reflux, Chronic Constipation, Diverticulosis, Gall Bladder Disease Musculoskeletal: Yes Degenerate Disk Disease, Arthritis, Scoliosis Endocrine: Yes Hypothyroidsim HEENT: Yes Cataract Loss of Vision: Denies Hearing Impairment: Denies Cancer: No Psychosocial: Yes Anxiety, Bipolar Integumentary: No Blood Disorders: No Family Medical History Cardiovascular disease 19 FATHER 19 MOTHER Completed stroke 19 FATHER Diabetes mellitus G8 BROTHER FH: lung cancer 19 FATHER 19 MOTHER Myocardial infarction 19 MOTHER Psychiatric Problems Physical Exam Vital Signs Vital Signs - First Documented 11/5/19 16:57 Temp 36.5 Pulse 71 Resp 18 B/P (MAP) 161/77 (105) Pulse Ox 98 O2 Delivery Room Air Capillary Refill : Less Than 3 Seconds Height, Weight, BMI Height: 5'2.99" Weight: 153lbs. 6.4oz. 69.302186sy; 26.00 BMI Method:Stated General Appearance: WD/WN, no apparent distress HEENT: PERRL/EOMI, pharynx normal Respiratory: lungs clear, normal breath sounds, no respiratory distress, no accessory muscle use Cardiovascular: normal peripheral pulses, regular rate, rhythm Gastrointestinal: normal bowel sounds, non tender, soft Extremities: normal range of motion, normal capillary refill Neurologic/Psychiatric: alert, normal mood/affect, oriented x 3 Crainal Nerves: normal hearing, normal speech (confused), PERRL Motor/Sensory: no motor deficit, no sensory deficit Skin: normal color, warm/dry Focused Exam Lactate Level 12/17/18 17:20: Lactic Acid Level 0.84 Lactic Acid Level Laboratory Tests Test 12/17/18 17:20 Lactic Acid Level 0.84 MMOL/L (0.50-2.00) Progress/Results/Core Measures Results/Orders Lab Results Laboratory Tests Test 12/17/18 17:20 12/17/18 18:30 Range/Units White Blood Count 6.5 4.3-11.0 10^3/uL Red Blood Count 3.22 L 4.35-5.85 10^6/uL Hemoglobin 10.7 L 11.5-16.0 G/DL Hematocrit 32 L 35-52 % Mean Corpuscular Volume 98 80-99 FL Mean Corpuscular Hemoglobin 33 25-34 PG Mean Corpuscular Hemoglobin Concent 34 32-36 G/DL Red Cell Distribution Width 13.1 10.0-14.5 % Platelet Count 323 130-400 10^3/uL Mean Platelet Volume 9.5 7.4-10.4 FL Neutrophils (%) (Auto) 53 42-75 % Lymphocytes (%) (Auto) 36 12-44 % Monocytes (%) (Auto) 9 0-12 % Eosinophils (%) (Auto) 2 0-10 % Basophils (%) (Auto) 1 0-10 % Neutrophils # (Auto) 3.4 1.8-7.8 X 10^3 Lymphocytes # (Auto) 2.3 1.0-4.0 X 10^3 Monocytes # (Auto) 0.6 0.0-1.0 X 10^3 Eosinophils # (Auto) 0.1 0.0-0.3 10^3/uL Basophils # (Auto) 0.0 0.0-0.1 10^3/uL Prothrombin Time 14.0 12.2-14.7 SEC INR Comment 1.0 0.8-1.4 Activated Partial Thromboplast Time 27 24-35 SEC Sodium Level 131 L 135-145 MMOL/L Potassium Level 3.3 L 3.6-5.0 MMOL/L Chloride Level 98 98-107 MMOL/L Carbon Dioxide Level 21 21-32 MMOL/L Anion Gap 12 5-14 MMOL/L Blood Urea Nitrogen 22 H 7-18 MG/DL Creatinine 1.15 0.60-1.30 MG/DL Estimat Glomerular Filtration Rate 47 BUN/Creatinine Ratio 19 Glucose Level 80 70-105 MG/DL Lactic Acid Level 0.84 0.50-2.00 MMOL/L Calcium Level 9.4 8.5-10.1 MG/DL Corrected Calcium 10.2 H 8.5-10.1 MG/DL Total Bilirubin 0.2 0.1-1.0 MG/DL Aspartate Amino Transf (AST/SGOT) 20 5-34 U/L Alanine Aminotransferase (ALT/SGPT) 12 0-55 U/L Alkaline Phosphatase 121 40-136 U/L Total Protein 9.4 H 6.4-8.2 GM/DL Albumin 3.0 L 3.2-4.5 GM/DL Urine Color YELLOW Urine Clarity CLEAR Urine pH 5 5-9 Urine Specific [place] 1.015 L 1.016-1.022 Urine Protein 2+ H NEGATIVE Urine Glucose (UA) NEGATIVE NEGATIVE Urine Ketones NEGATIVE NEGATIVE Urine Nitrite NEGATIVE NEGATIVE Urine Bilirubin NEGATIVE NEGATIVE Urine Urobilinogen NORMAL NORMAL MG/DL Urine Leukocyte Esterase 2+ H NEGATIVE Urine RBC (Auto) NEGATIVE NEGATIVE Urine RBC NONE /HPF Urine WBC 10-25 H /HPF Urine Squamous Epithelial Cells RARE /HPF Urine Crystals NONE /LPF Urine Bacteria MODERATE H /HPF Urine Casts NONE /LPF Urine Mucus NEGATIVE /LPF Urine Culture Indicated YES My Orders Orders - CARLEE BILLINGS Ceftriaxone For Iv Use (Rocephin For I (12/17/18 19:00) Medications Given in ED Current Medications Medications Dose Ordered Sig/Lisa Route Start Time Stop Time Status Last Admin Dose Admin Ceftriaxone Sodium 1000 mg/ Sterile Water 10 ml @ 200 mls/hr ONCE ONCE IV 12/17/18 19:00 12/17/18 19:02 DC 12/17/18 19:10 200 MLS/HR Lactated Ringer's 1,000 ml @ 0 mls/hr Q0M ONCE IV 12/17/18 17:30 12/17/18 17:32 DC 12/17/18 17:52 0 MLS/HR Vital Signs/I&O 12/17/18 16:57 Temp 36.5 Pulse 71 Resp 18 B/P (MAP) 161/77 (105) Pulse Ox 98 O2 Delivery Room Air Blood Pressure Mean: 105 POS Progress Progress Note #1: Time: 18:29 Progress Note Patient presents with what appears to be acute delirium. No lateralizing neurologic symptoms found on examination. Suspect she'll still have a UTI despite starting antibiotics last night. Her vital signs are aseptic, normal white count, lactate normal. She does have mild hyponatremia and an elevated BUNs which may be consistent with dehydration. We have given her a liter of LR. We have discussed with family members appropriate treatment for delirium by targeting the underlying cause and it would be better to keep her in a familiar environment if we do not find a medical reason for her to be in the hospital. Echocardiogram October [address] Sage: EF of 65-70% with grade 1 diastolic dysfunction and moderate mitral valve regurgitation. Concentric hypertrophy with mildly increased wall thickness. Progress Note #2: Time: 19:37 Progress Note After a long shared decision making process conversation with the daughter she has decided would be most beneficial for the patient to take her home. They have home health coming in the morning set up by primary care. They're going to have close follow-up with primary care. We have provided counseling about delirium and what to expect. We have discussed the different medications she is on and how we would recommend reducing doses of opiates but would be okay with Tylenol and ibuprofen. We have discussed avoiding Vistaril and Benadryl and other anticholinergic type medications. We have switched her from Cipro Floxin to Keflex. Diagnostic Imaging Diagonstic Imaging: Xray Plain Films/CT/US/NM/MRI: chest (1v) Comments No acute cardiopulmonary process noted. [facility]. POS [place], [place] POS NAME: [facility] REC#: [id number] PT STATUS: REG ER : 1950 PHYSICIAN: NIDIA PRAJAPATI MD ADMIT DATE: 12/17/18/ER Draft POSDate of Exam:12/17/18 CHEST 1 VIEW, AP/PA ONLY EXAMINATION: Chest 1 view HISTORY: Altered mental status. FINDINGS: Comparison is 10/13/2018. The lungs are clear. No edema. No pneumonia. No pleural effusion. No pneumothorax. Heart is normal in size. IMPRESSION: 1. Clear lungs. Dictated on workstation # [id number] Dict: 12/17/181808 Trans: 12/17/181810 [id number] Interpreted by: ARMIDA HARP MD Electronically signed by: Reviewed: Reviewed by Me Departure Impression Primary Impression: Delirium Additional Impression: UTI (urinary tract infection) Qualified Codes: N30.00 - Acute cystitis without hematuria Disposition: HOME, SELF-CARE Condition: Stable Departure-Patient Inst. Decision time for Depature: 19:39 Referrals: [facility] (PCP/Family) Primary Care Physician Patient Instructions: Urinary Tract Infection, Adult (DC), Delirium (Confusion) (DC) Add. Discharge Instructions: Encourage lots of fluids. Keep her safe and expect a waxing and waning level of alertness and confusion. Utilize primary care and outpatient resources. If you have any concerns you're welcome to bring her back to the nearest ER pursue further inpatient treatment. Discuss physical therapy to help her with her ladder incontinence with the primary care doctor. Use the Ambien with caution as this may increase her sedation and worsen her confusion. Avoid medication such as Benadryl, Vistaril, Zyrtec, Claritin. Be very cautious with opiate medication such as tramadol Roxicodone as this may also increase her sedation and worsen her confusion. Make a follow-up appointment with primary care for later in the week. Cephalexin 1 tablet twice a day with food for the next 5 days. Probiotics one capsule twice daily to prevent antibiotic related diarrhea. All discharge instructions reviewed with patient and/or family. Voiced u nderstanding. Scripts Cephalexin (Cephalexin) 500 Mg Tablet 500 MG PO BID for 5 Days, #10 TAB 0 Refills Prov: CARLEE BILLINGS 12/17/18 Work/School Note: Family Work Note Patient Received Medical Care In the Emergency Department On: Dec 17, 2018 Patient Will Be Able to Return to Work/School On: Dec 23, 2018 Patient Restrictions: None CARLEE BILLINGS Dec 17, 2018 18:20 POS
[2018-12-17 18:40] LABS: BILIRUBIN,URINE NEGATIVE (NEGATIVE); CLARITY,URINE CLEAR; COLOR,URINE YELLOW; GLUCOSE, URINE (UA) NEGATIVE (NEGATIVE); KETONES,URINE NEGATIVE (NEGATIVE); LEUKOCYTE ESTERASE ,URINE 2+ (NEGATIVE); NITRITE,URINE NEGATIVE (NEGATIVE); PH,URINE 5 (5-9); PROTEIN,URINE 2+ (NEGATIVE)
[2018-12-17 18:49] LABS: BACTERIA,URINE MODERATE /HPF
[2018-12-17 18:50] LABS: SQUAMOUS EPITHELIAL CELL,UR RARE /HPF
[2018-12-17] MEDS ORDERED: cefTRIAXone FOR IV USE 1,000 MG in WATER (STERILE) FOR INJECTION 10 ML IV ONE (19:00)
[2018-12-17] MEDS ORDERED: CEPH500T PO (19:41)
[2018-12-17] MEDS ORDERED: IBUPROFEN 800 MG (MOTRIN) TAB PO ONE (19:45)
[2018-12-17 19:58] VITALS: BP 166/94
== END 2018-12-17 20:06 | disposition home or self-care (01) ==
LOC: EDUNIT# 16:57 → ER 16:59
DX: R41.0 Disorientation, unspecified (principal); N39.0 Urinary tract infection, site not specified; J45.909 Unspecified asthma, uncomplicated; I10 Essential (primary) hypertension; F32.9 Major depressive disorder, single episode, unspecified; E03.9 Hypothyroidism, unspecified; F41.9 Anxiety disorder, unspecified; K21.9 Gastro-esophageal reflux disease without esophagitis; Z88.8 Allergy status to other drugs, medicaments and biological substances; Z79.51 Long term (current) use of inhaled steroids; Z90.710 Acquired absence of both cervix and uterus; Z82.49 Family history of ischemic heart disease and other diseases of the circulatory system; Z80.1 Family history of malignant neoplasm of trachea, bronchus and lung
CPT/HCPCS: 36415; 71045; 80053; 81000; 83605; 85025; 85610; 85730; 87040; 87088